=== PATIENT | male | born 1945 | race Caucasian/White ===

== ENCOUNTER 2023-09-10 22:39 | Emergency (ER) | payer MEDICARE, SELFPAY ==
[2023-09-10 22:45] VITALS: BP 175/95; PULSE 94; TEMP 36.9; O2SAT 95; BMI 28.4
--- NOTE | 2023-09-10 23:28 | PC.NURSE ---
This nurse went to irrigate pate catheter, when removing tubing a small clot came out of catheter and urine starting to drain. 500 mls output at this time. Pt has relief at this time.
--- NOTE | 2023-09-10 23:31 | ED_ITS ---
HPI - Male Genitourinary General Chief complaint: Urogenital-Male Stated complaint: Medical Devise Check Time Seen by Provider: 09/10/23 23:22 Source: patient Mode of arrival: walk-in History of Present Illness HPI Narrative: chronic history of urinary retention and has been self cathing for many years. Describes abnormality of the bladder wall and it was removed surgically 09/06/23 at [facility] and a pate and leg bag were placed. Tonight the catheter was not draining and he now presents to the ER. no fever, chills or nausea. He otherwise feels well Related Data Allergies Allergy/AdvReac Type Severity Reaction Status Date / Time No Known Drug Allergies Allergy Verified 09/10/23 22:54 Review of Systems ROS Status of ROS 10 or more systems reviewed and unremark able except as noted in history and below Exam Constitutional Vital Signs, click to edit/add: Last Vital Signs Temp 98.5 F 09/10/23 22:45 Pulse 94 H 09/10/23 22:45 Resp 20 09/10/23 22:45 BP 175/95 H 09/10/23 22:45 Pulse Ox 95 09/10/23 22:45 O2 Del Method Room Air 09/10/23 22:45 Common normals: no apparent distress, average body habitus, oriented x3, no limitations, healthy appearing, alert and well nourished [facility] Common normals: normocephalic and head/scalp atraumatic Eye Common normals: EOMs intact bilaterally and conjunctivae normal Respiratory Common normals: normal respiratory effort, no retractions, no use of accessory muscles and clear to auscultation bilaterally Cardio Common normals: regular rate, regular rhythm, S1 normal heart sound and S2 normal heart sound GI Other: suprapubic mid line vertical incision. looks clean Extremity Common normals: normal to inspection and full ROM Neuro Common normals: oriented x3, CN's II-XII intact bilaterally, moves all extremities and no focal motor deficits Psych Appearance: grossly normal Course Vital Signs Vital signs: Vital Signs Temperature 98.5 F 09/10/23 22:45 Pulse Rate 94 H 09/10/23 22:45 Respiratory Rate 20 09/10/23 22:45 Blood Pressure 175/95 H 09/10/23 22:45 Pulse Oximetry 95 09/10/23 22:45 Oxygen Delivery Method Room Air 09/10/23 22:45 Temperature 98.5 F 09/10/23 22:45 Pulse Rate 94 H 09/10/23 22:45 Respiratory Rate 20 09/10/23 22:45 Blood Pressure 175/95 H 09/10/23 22:45 Pulse Oximetry 95 09/10/23 22:45 Oxygen Delivery Method Room Air 09/10/23 22:45 MDM - Male Genitourinary MDM Narrative Medical decision making narrative: patient presents with urinary retention . Nursing noted clot in the catheter and irrigated it and the urine started flowing. Discharge Plan Discharge Stand Alone Forms: Portal Instructions Chief Complaint: Urogenital-Male Clinical Impression: Pate catheter problem Patient Disposition: Home, Self-Care Print Language: Georgian Instructions: Urinary Retention in Men (ED) Referrals: CASSIE DONALDSON MD [Primary Care Provider] - 1 week
--- NOTE | 2023-09-10 23:38 | PC.NURSE ---
This nurse irrigated pate, no blood clots noted, urine clear and pate is patent.
== END 2023-09-10 23:46 | disposition home or self-care (01) ==
PROVIDERS: Emergency Provider Internal Medicine; PCP Internal Medicine
DX: T83.098A Other mechanical complication of other urinary catheter, initial encounter (principal); R33.9 Retention of urine, unspecified
CPT/HCPCS: 99284

== ENCOUNTER 2023-12-17 16:26 | Outpatient (OUT) | payer MEDICARE, SELFPAY ==
--- NOTE | 2023-12-17 | US_ITS ---
The [address] [address] Patient Name: JOLLY SIERRA MRN: [id number] date: 1945 Sex: M Assigned Patient Location: US Current Patient Location: US Accession/Order Number: [id number] Exam Date: 12/17/2023 16:50 Report Date: 12/18/2023 08:54 At the request of: CHEO DAN Procedure: US venous doppler UE RT EXAM: US venous doppler UE RT HISTORY: Swelling right arm, M79.89, Bladder cancer,C67.8 COMPARISON: None. TECHNIQUE: [place] scale, color Doppler, spectral Doppler waveform analysis was used to evaluate the right upper extremity venous vascular structures. FINDINGS: The internal jugular veins are compressible. The subclavian vein demonstrated normal color flow and waveform analysis. The axillary, brachial, radial, and ulnar veins were compressible. Superficial venous thrombus is seen within the cephalic vein in the upper arm region. This does not extend to the subclavian vein. US/US venous doppler UE RT IMPRESSION: Superficial venous thrombosis involving the upper portion of the cephalic vein. No deep venous thrombosis. Electronically authenticated by: Chidi SHORT Date: 12/18/2023 08:54
== END 2023-12-17 16:27 | disposition home or self-care (01) ==
LOC: US 16:26
PROVIDERS: PCP Internal Medicine; Visit Provider Physician Assistant Medical
DX: C67.8 Malignant neoplasm of overlapping sites of bladder (principal); M79.89 Other specified soft tissue disorders; I82.611 Acute embolism and thrombosis of superficial veins of right upper extremity
CPT/HCPCS: 93971

== ENCOUNTER 2024-06-18 13:40 | Outpatient (OUT) | payer MEDICARE, SELFPAY ==
--- NOTE | 2024-06-18 13:42 | US_ITS ---
[address] [address] Patient Name: JOLLY SIERRA MRN: [id number] date: 1945 Sex: M Assigned Patient Location: US Current Patient Location: Accession/Order Number: [id number] Exam Date: 06/18/2024 13:55 Report Date: 06/19/2024 10:11 At the request of: TOMÁS SUAREZ Procedure: US thyroid EXAMINATION: US thyroid HISTORY: abnormal imaging of thyroid COMPARISON: No relevant comparison available. FINDINGS: RIGHT LOBE: Enlarged slightly heterogeneous. Contains a 2.6 x 1.7 x 1.9 cm TR 4 nodule within inferior pole. Lobe size: 5.7 2.7 x 1.7 cm LEFT LOBE: Enlarged slightly heterogeneous. Contains a 3.4 x 1.9 x 2.8 cm TR 5 nodule within inferior pole. Lobe size: 5.7 x 2.7 x 1.6 cm ISTHMUS: Normal size and echotexture. Thickness: 3 mm US/US thyroid IMPRESSION: 1. Suspicious TR 4 nodule within right lobe and suspicious TR 5 nodule within left lobe. Ultrasound-guided tissue sampling is recommended. TR5 (highly suspicious): If > 0.5 cm, annual ultrasound follow-up for up to 5 years. If > 1.0 cm, fine needle aspiration (FNA). TR4 (moderately suspicious): If > 1.0 cm, follow-up ultrasound in 1, 2, 3, and 5 years. If > 1.5 cm, fine needle aspiration (FNA). Electronically authenticated by: HIREN ADRIAN Date: 06/19/2024 10:11
== END 2024-06-18 13:41 | disposition home or self-care (01) ==
LOC: US 13:40
PROVIDERS: PCP Internal Medicine; Visit Provider Internal Medicine Hematology & Oncology
DX: R93.89 Abnormal findings on diagnostic imaging of other specified body structures (principal); E04.2 Nontoxic multinodular goiter
CPT/HCPCS: 76536

== ENCOUNTER 2025-01-09 10:14 | Outpatient (OUT) | payer MEDICARE, SELFPAY ==
--- OUTSIDE RECORDS SUMMARY | 2025-01-09 10:28 | XMS_ITS | CCD ---
Author Organization [facility] Care Team Providers Care Mortgage Or Loan Underwriter Name Role Phone JOSE J DONALDSON JR Primary Care Physician Unavailable Primary Care Provider Unavaildilma vidal Unavailable Primary Care Provider Unavailabl e Lalito oHbbs, Jose J WHITE Primary Care Provi gerry Antonio GARY Attending Unavailable Antonio GARY Attending Unavailable Antonio GARY Attending Unavailable Antonio GARY Admitting Unavailable Jerman BOOM OPERATOR.RETREAD SUPERVISOR, Jose Martin Unavailable Faisal Dasilva MD Unavailable [phone] Donald Perez RN Unavailable Anette Kebede Unavailable Unavailable Jose J Donaldson MD Primary Care Provider [phone] Rubén Newman DO Attending Provider [phone] NO FAMILY, PHYSICIAN Primary Care Provider Unava ilable JOSE J DONALDSON JR Primary Care Unavail able JASON WILL Referring Unavailable Rubén Newman DO Attending Provider [phone] JASON WILL Attending Unavailable JOSE J DONALDSON JR Primary Care Unavail able JASON WILL Attending Unavailable JOSE J DONALDSON JR Primary Care Unavail able JASON WILL Admitting Unavailable JASON WILL Attending Unavailable JOSE J DONALDSON JR Primary Care Unavail able RUBÉN NEWMAN Attending Unavailable RUBÉN NEWMAN Attending Unavailable RUBÉN NEWMAN Attending Unavailable RUBÉN NEWMAN Attending Unavailable RUBÉN NEWMAN Attending Unavailable Rubén Newman Attending Unavailable NO FAMILY, PHYSICIAN Primary Care Unavailable Rubén Newman Admitting Unavailable NON STAFF Primary Care Unavailable Rubén Newman Admitting Unavailable Rubén Newman Attending Unavailable Rubén Newman Admitting Unavailable Rubén Newman Attending Unavailable PEREZONE , [facility] Unavail able FAISAL DASILVA Referring Unavailabl e VALONE JR, [facility] Unavail able FAISAL DASILVA Referring Unavailabl e FAISAL DASILVA Attending Unavailabl e VALONE JR, [facility] Unavail able VALONE , [facility] Unavail able FAISAL DASILVA Referring Unavailabl FAISAL Rojas Attending Unavailabl FAISAL Rojas Referring Unavailabl e VALONE JR, [facility] Unavail able FAISAL DASILVA Referring Unavailabl e VALONE JR, [facility] Unavail able FAISAL DASILVA Referring Unavailabl e MARLEE DAN Attending Unavailable PEREZONE , [facility] Unavail able FAISAL DASILVA Referring Unavailabl e VALONE JR, [facility] Unavail able FAISAL DASILVA Referring Unavailabl e VALONE JR, [facility] Unavail able VALONE , [facility] Unavail able FAISAL DASILVA Attending UnavailFAISAL [place] Referring Unavailabl e VALONE JR, [facility] Unavail able VALONE , [facility] Unavail able BRIDGET DESAI Referring Unavailable VALONE , [facility] Unavail able JASON WILL Referring Unavailable VALONE , [facility] Unavail able FAISAL DASILVA Referring Unavailabl JOSE MARTIN Fields Attending Un[facility] FAISAL DASILVA Attending UnavailFAISAL [place] Referring Unavailabl e VALONE JR, [facility] Unavail able Medications Current Medications Medication Drug Class(es) Dates Sig (Normalized) Sig (Original) amLODIPine 5 mg oral tablet (1 source) Dihydropyridine Calcium Channel Koko Start: 07-25-2021 amLODIPine 5 mg Tab Refills(s) 0 Start Date: 07/25/21 Status: Ordered docusate sodium 100 mg oral capsule (12 sources) Start: 09-07-2023 End: 09-21-2023 take 1 capsule by mouth twice daily docusate sodium (COLACE) 100 mg capsule Take 1 capsule by mouth two times a day for 14 days. 28 capsule 0 09/07/2023 09/21/2023 Active End: 10-24-2023 docusate sodium (STOOL SOFTE NER ORAL) Take by mouth as needed. 10/24/2023 Discontinued End: 10-24-2023 docusate sodium (STOOL SOFTE NER ORAL) Take by mouth as needed. 0 10/24/2023 Discontinued docusate sodium (STOOL SOFTENER ORAL) Take by mouth as needed. 0 Active enteric contrast (will be provided with radiology test) (2 sources) Start: 03-11-2024 End: 03-12-2024 enteric contrast (will be pr ovided with radiology test) For CT CHESTABD/PEL W IVCON Routine order Administer, As Directed One Time Only, via Oral, Rectal, both Oral and Rectal, Enteric Tube, Stoma or Indwelling Catheter, Enteric Contrast as designated per enteric contrast guidelines 1 Each 03/11/2024 03/12/2024 Active iv contrast (will be provide d with radiology test) (4 sources) Start: 03-11-2024 End: 03-12-2024 iv contrast (will be provide d with radiology test) CT Chest ABD/PEL-Inject, intravenously, once for 1 dose.No IV access, insert saline lock prior to the beginning of sedation, infusion, injection of imaging exam. Discontinue saline lock post exam. If Pt. has a central line or IVAD, may access for administration according to line specific nursing protocol. Once exam is complete flush line and de-access according to line specific nursing protocol in the CT contrast administration guidelines link. 1 Each 03/11/2024 03/12/2024 Active Start: 08-24-2023 End: 08-25-2023 iv contrast (will be provide d with radiology test) CT Urogram WO/W Inject, intravenously, once for 1 dose.No IV access, insert saline lock prior to the beginning of sedation, infusion, injection of imaging exam. Discontinue saline lock post exam. If Pt. has a central line or IVAD, may access for administration according to line specific nursing protocol. Once exam is complete flush line and de-access according to line specific nursing protocol in the CT contrast administration guidelines link. 1 Each 0 08/24/2023 08/25/2023 Active Comment on above: CT Urogram WO/W Inje ct, intravenously, once for 1 dose.No IV access, insert saline lock prior to the beginning of sedation, infusion, injection of imaging exam. Discontinue saline lock post exam. If Pt. has a central line or IVAD, may access for administration according to line specific nursing protocol. Once exam is complete flush line and de-access according to line specific nursing protocol in the CT contrast administration guidelines link. nitrofurantoin, macrocrystals 25 mg / nitrofurantoin, monohydrate 75 mg oral capsule (11 sources) Nitrofuran Antibacterial Start: 2023 End: 2023 nitrofurantoin monohydrate and macrocrystal (MACROBID) 100 mg capsule 12/14/2023 01/18/2024 Discontinued ondansetron 8 mg oral tablet (20 sources) Serotonin-3 Receptor Antagonist Start: 2023 End: 2024 take 1 tablet by mouth every eight hours as needed ondansetron (Zofran) 8 MG tablet Take 8 mg by mouth every 8 (eight) hours if needed 10/22/2023 01/08/2025 Discontinued prochlorperazine 10 mg oral tablet (20 sources) Phenothiazine Start: 2023 End: 2024 take 1 tablet by mouth every six hours as needed prochlorperazine (Compazine) 10 MG tablet Take 10 mg by mouth every 6 (six) hours if needed 10/22/2023 01/08/2025 Discontinued Psyllium (3 sources) Start: 2019 Metamucil Oral, Refills(s) 0 Start Date: 05/23/19 Status: Ordered psyllium seed, with sugar, (METAMUCIL, SUGAR, ORAL) (19 sources) psyllium seed, w ith sugar, (METAMUCIL, SUGAR, ORAL) Take by mouth. Active ramipril 10 mg oral capsule (20 sources) Angiotensin Converting Enzyme Inhibitor Start: 2023 End: 2024 take 1 capsule by mouth in the morning ramipril (Altace) 10 MG capsule Take 10 mg by mouth in the morning. 08/20/2023 01/08/2025 Discontinued Start: 07-25-2021 ramipril 10 mg Cap Refills(s) 0 Start Date: 07/25/21 Status: Ordered Comment on above: Take 10 mg by mouth once daily. sacubitril 24 mg / valsartan 26 mg oral tablet (19 sources) Angiotensin 2 Receptor Koko Start: 07-31-2024 sacubitril-valsartan (Entresto) 24-26 MG tablet Take by mouth 07/31/2024 Active Start: 07-31-2024 take 1 tablet by christen th twice daily sacubitril-valsartan (ENTRESTO) 24-26 mg tablet Take 1 tablet by mouth two times a day. 07/31/2024 Active spironolactone 50 mg oral tablet (20 sources) Aldosterone Antagonist Start: 08-01-2023 End: 04-08-2025 take 1 tablet by mouth once daily spironolactone (Aldactone) 50 MG tablet Indications: Heart failure, unspecified (HCC) Take 1 tablet (50 mg) by mouth Daily 90 tablet 01/08/2025 04/08/2025 Active Comment on above: Take 50 mg by mouth once daily. Vitamin D (3 sources) Start: 07-09-2020 Vitamin D International_Unit, Oral, Daily, Refills(s) 0 Start Date: 07/09/20 Status: Ordered Completed/Discontinued Medications Medication Drug Class(es) Dates Sig (Normalized) Sig (Original) cephalexin 500 mg oral capsule (4 sources) Cephalosporin Antibacterial Start: 09-01-2024 End: 09-11-2024 take 1 capsule by mouth three times daily cephALEXin (KEFLEX) 500 mg capsule Indications: Acute cystitis without hematuria Take 1 capsule by mouth three times a day for 10 days. 30 capsule 09/01/2024 09/11/2024 Start: 01-18-2024 End: 01-28-2024 take 1 capsule by mouth three times daily cephALEXin (KEFLEX) 500 mg capsule Indications: Bacteriuria Take 1 capsule by mouth three times a day for 10 days. 30 capsule 01/18/2024 01/28/2024 Discontinued ciprofloxacin 500 mg oral tablet (6 sources) Quinolone Antimicrobial Start: 09-02-2023 End: 09-13-2023 ciprofloxacin HCl (CIPRO) 500 mg tablet Course 1: TAKE 1 TABLET BY MOUTH TWICE DAILY FOR 3 DAYS. START THE DAY PRIOR TO CATHETER REMOVAL Course 2: TAKE 1 TABLET BY MOUTH TWICE DAILY FOR 3 DAYS. START THE DAY PRIOR TO STENT REMOVAL 12 tablet 0 09/07/2023 09/13/2023 Start: 07-30-2023 take 1 tablet by christen th once daily Cipro 500 mg Tab 500 mg = 1 tab(s), Oral, Daily, Take 1 tablet the day before the procedure and 1 tablet after the procedure, # 1 tab(s), Refills(s) 0, Pharmacy: [facility] [id number], 179, cm, 08/07/22 8:48:00 EDT, Height/Length Dosing, 90, kg, 08/07/22 8:48:00 EDT, Weight Dosing Start Date: 07/30/23 Status: Ordered CISplatin 47.25 mg in NaCl 0.9% 587.25 mL (PLATINOL) (2 sources) Start: 01-15-2024 End: 01-15-2024 47.25 mg (25 mg/m2 1.89 m2 Treatment plan adjusted BSA), INTRAVENOUS, Administer over 1 Hours, ONCE, 1 dose, On Sun01/15/24 at 1030, Approx Total Volume: mL EXP: 01/17/2024 1630 RT Hazardous Chemotherapy Drug: Use appropriate PPE. Antineoplastic Vesicant for concentrations greater than 0.4 mg/mL - Antineoplastic Irritant for concentrations less than 0.4 mg/mL. Protect from Light. Start: 01-08-2024 End: 01-08-2024 47.25 mg (25 mg/m2 1.89 m2 T reatment plan adjusted BSA), INTRAVENOUS, Administer over 1 Hours, ONCE, 1 dose, On Sun01/08/24 at 1000, Approx Total Volume: mL EXP: 01/09/2024 1600 RT Hazardous Chemotherapy Drug: Use appropriate PPE. Antineoplastic Vesicant for concentrations greater than 0.4 mg/mL - Antineoplastic Irritant for concentrations less than 0.4 mg/mL. Protect from Light. CISplatin 50 mg in NaCl 0.9% 590 mL (PLATINOL) (5 sources) Start: 12-17-2023 End: 12-17-2023 CISplatin 50 mg in NaCl 0.9% 590 mL (PLATINOL) Start: 12-03-2023 End: 12-03-2023 CISplatin 50 mg in NaCl 0.9% 590 mL (PLATINOL) Start: 11-26-2023 End: 11-26-2023 CISplatin 50 mg in NaCl 0.9% 590 mL (PLATINOL) Start: 11-12-2023 End: 11-12-2023 CISplatin 50 mg in NaCl 0.9% 590 mL (PLATINOL) Start: 11-05-2023 End: 11-05-2023 CISplatin 50 mg in NaCl 0.9% 590 mL (PLATINOL) dexAMETHasone 10 mg in NaCl 0.9% 50 mL (DECADRON) (8 sources) Start: 01-15-2024 End: 01-15-2024 10 mg, INTRAVENOUS, ONCE, 1 dose, On Sun01/15/24 at 1030, Refrigerate. Start: 01-08-2024 End: 01-08-2024 10 mg, INTRAVENOUS, ONCE, 1 dose, On Sun01/08/24 at 1000, Refrigerate. Start: 12-24-2023 End: 12-24-2023 10 mg, INTRAVENOUS, ONCE, 1 dose, On Sun12/24/23 at 1130, Refrigerate. Start: 12-17-2023 End: 12-17-2023 dexAMETHasone 10 mg in NaCl 0.9% 50 mL (DECADRON) Start: 12-03-2023 End: 12-03-2023 dexAMETHasone 10 mg in NaCl 0.9% 50 mL (DECADRON) Start: 11-26-2023 End: 11-26-2023 dexAMETHasone 10 mg in NaCl 0.9% 50 mL (DECADRON) Start: 11-12-2023 End: 11-12-2023 dexAMETHasone 10 mg in NaCl 0.9% 50 mL (DECADRON) Start: 11-05-2023 End: 11-05-2023 dexAMETHasone 10 mg in NaCl 0.9% 50 mL (DECADRON) doxycycline monohydrate 100 mg oral tablet (12 sources) Tetracycline-class Drug Start: 12-10-2023 End: 01-28-2024 doxycycline monohydrate 100 mg tablet 12/10/2023 01/28/2024 Discontinued ferrous sulfate 325 mg oral tablet (12 sources) End: 01-28-2024 ferrous sulfate (IRON) 325 mg (65 mg iron) tablet Take 325 mg by mouth. 01/28/2024 Discontinued fosaprepitant 150 mg in NaCl 0.9% 250 mL (EMEND) (8 sources) Start: 01-15-2024 End: 01-15-2024 150 mg, INTRAVENOUS, Administer over 30 Minutes, ONCE, 1 dose, On Sun01/15/24 at 1030, Approximate Total Volume = 280 mL Refrigerate Start: 01-08-2024 End: 01-08-2024 150 mg, INTRAVENOUS, Adminis ter over 30 Minutes, ONCE, 1 dose, On Sun01/08/24 at 1000, Approximate Total Volume = 280 mL Refrigerate Start: 12-24-2023 End: 12-24-2023 150 mg, INTRAVENOUS, Adminis ter over 30 Minutes, ONCE, 1 dose, On Sun12/24/23 at 1130, Approximate Total Volume = 280 mL Refrigerate Start: 12-17-2023 End: 12-17-2023 fosaprepitant 150 mg in NaCl 0.9% 250 mL (EMEND) Start: 12-03-2023 End: 12-03-2023 fosaprepitant 150 mg in NaCl 0.9% 250 mL (EMEND) Start: 11-26-2023 End: 11-26-2023 fosaprepitant 150 mg in NaCl 0.9% 250 mL (EMEND) Start: 11-12-2023 End: 11-12-2023 fosaprepitant 150 mg in NaCl 0.9% 250 mL (EMEND) Start: 11-05-2023 End: 11-05-2023 fosaprepitant 150 mg in NaCl 0.9% 250 mL (EMEND) gemcitabine 1,800 mg in NaCl 0.9% 322.34 mL (GEMZAR) (2 sources) Start: 01-15-2024 End: 01-15-2024 1,800 mg (rounded from 1,890 mg = 1,000 mg/m2 1.89 m2 Treatment plan adjusted BSA), INTRAVENOUS, Administer over 30 Minutes, ONCE, 1 dose, On Sun01/15/24 at 1030, EXP: 01/17/2024 1630 RT Hazardous Chemotherapy Drug: Use appropriate PPE. Antineoplastic Irritant. Start: 01-08-2024 End: 01-08-2024 1,800 mg (rounded from 1,890 mg = 1,000 mg/m2 1.89 m2 Treatment plan adjusted BSA), INTRAVENOUS, Administer over 30 Minutes, ONCE, 1 dose, On Sun01/08/24 at 1000, EXP: 01/09/2024 1600 RT Hazardous Chemotherapy Drug: Use appropriate PPE. Antineoplastic Irritant. gemcitabine 2,000 mg in NaCl 0.9% 327.6 mL (GEMZAR) (6 sources) Start: 12-24-2023 End: 12-24-2023 2,000 mg (rounded from 2,050 mg = 1,000 mg/m2 2.05 m2 Treatment Plan BSA from Recorded weight), INTRAVENOUS, Administer over 30 Minutes, ONCE, 1 dose, On Sun12/24/23 at 1130, EXP: 32912/26/23 Hazardous Chemotherapy Drug: Use appropriate PPE. Antineoplastic Irritant. Start: 12-17-2023 End: 12-17-2023 gemcitabine 2,000 mg in NaCl 0.9% 327.6 mL (GEMZAR) Start: 12-03-2023 End: 12-03-2023 gemcitabine 2,000 mg in NaCl 0.9% 327.6 mL (GEMZAR) Start: 11-26-2023 End: 11-26-2023 gemcitabine 2,000 mg in NaCl 0.9% 327.6 mL (GEMZAR) Start: 11-12-2023 End: 11-12-2023 gemcitabine 2,000 mg in NaCl 0.9% 327.6 mL (GEMZAR) Start: 11-05-2023 End: 11-05-2023 gemcitabine 2,000 mg in NaCl 0.9% 327.6 mL (GEMZAR) lidocaine hydrochloride 0.02 mg/mg topical gel (4 sources) Antiarrhythmic, Amide Local Anesthetic Start: 01-04-2024 End: 01-04-2024 lidocaine urojet 2 % 11 mL topical gel (GLYDO) Start: 01-04-2024 End: 01-04-2024 11 mL, URETHRAL, ONCE (UP TO 30 DAYS AMB), 1 dose, On Sun01/04/24 at 0830, FOR EXTERNAL USE ONLY APPLY TO: Urethra Start: 10-05-2023 End: 10-05-2023 lidocaine urojet 2 % 11 mL t opical gel (GLYDO) NaCl 0.9% 1,000 mL (1 source) Start: 11-12-2023 End: 11-12-2023 NaCl 0.9% 1,000 mL 24 hr oxybutynin chloride 10 mg extended release oral tablet (3 sources) Cholinergic Muscarinic Antagonist Start: 09-07-2023 End: 09-27-2023 take 1 tablet by mouth once daily as needed for muscle spasms oxybutynin ER (DITROPAN XL) 10 mg 24 hr tablet Take 1 tablet by mouth once daily as needed for up to 7 days. NEEDED FOR BLADDER SPASM - STOP THE DAY PRIOR TO CATHETER REMOVAL 7 tablet 0 09/07/2023 09/27/2023 Discontinued (Discontinued by Patient) 5 ml palonosetron 0.05 mg/ml injection (8 sources) Serotonin-3 Receptor Antagonist Start: 01-15-2024 End: 01-15-2024 0.25 mg, INTRAVENOUS, ONCE, 1 dose, On Sun01/15/24 at 1030, Flush IV line with NS prior to and following administration. Start: 01-08-2024 End: 01-08-2024 0.25 mg, INTRAVENOUS, ONCE, 1 dose, On Sun01/08/24 at 1000, Flush IV line with NS prior to and following administration. Start: 12-24-2023 End: 12-24-2023 0.25 mg, INTRAVENOUS, ONCE, 1 dose, On Sun12/24/23 at 1130, Flush IV line with NS prior to and following administration. Start: 12-17-2023 End: 12-17-2023 palonosetron 0.25 mg injecti on (ALOXI) Start: 12-03-2023 End: 12-03-2023 palonosetron 0.25 mg injecti on (ALOXI) Start: 11-26-2023 End: 11-26-2023 palonosetron 0.25 mg injecti on (ALOXI) Start: 11-12-2023 End: 11-12-2023 palonosetron 0.25 mg injecti on (ALOXI) Start: 11-05-2023 End: 11-05-2023 palonosetron 0.25 mg injecti on (ALOXI) Psyllium Seed-Sucrose (METAMUCIL, SUGAR,) (12 sources) End: 11-26-2023 Psyllium Seed-Sucrose (METAMUCIL, SUGAR,) Take 1 Tablespoonful by mouth once daily. 0 11/26/2023 Discontinued Psyllium Seed-Underwood crose (METAMUCIL, SUGAR,) Take 1 Tablespoonful by mouth once daily. 0 Active rosuvastatin calcium 5 mg oral tablet (20 sources) HMG-CoA Reductase Inhibitor Start: 07-21-2023 End: 11-26-2023 take 1 tablet by mouth once daily rosuvastatin (CRESTOR) 5 mg tablet Take 5 mg by mouth once daily. 07/21/2023 11/26/2023 Discontinued End: 01-08-2025 take 1 tablet by mouth in the morning rosuvastatin (Crestor) 20 MG tablet Take 20 mg by mouth in the morning. 01/08/2025 Discontinued Comment on above: Take 5 mg by mouth o nce daily. 1000 ml sodium chloride 9 mg/ml injection (16 sources) Start: 01-15-2024 End: 01-15-2024 999 mL/hr, INTRAVENOUS, Administer over 1 Hours, ONCE, 1 dose, On Sun01/15/24 at 1030, Give after chemotherapy. Start: 01-15-2024 End: 01-15-2024 1,000 mL, INTRAVENOUS, at 99 9 mL/hr, Administer over 1 Hours, ONCE, 1 dose, On Sun01/15/24 at 1030, Administer prior to chemotherapy. Start: 01-08-2024 End: 01-08-2024 999 mL/hr, INTRAVENOUS, Admi nister over 1 Hours, ONCE, 1 dose, On Sun01/08/24 at 1000, Give after chemotherapy. Start: 01-08-2024 End: 01-08-2024 1,000 mL, INTRAVENOUS, at 99 9 mL/hr, Administer over 1 Hours, ONCE, 1 dose, On Sun01/08/24 at 1000, Administer prior to chemotherapy. Start: 12-24-2023 End: 12-24-2023 500 mL, INTRAVENOUS, at 999 mL/hr, Administer over 0.5 Hours, ONCE, 1 dose, On Sun12/24/23 at 1130, Administer prior to chemotherapy. Start: 12-17-2023 End: 12-17-2023 NaCl 0.9% iv infusion Start: 12-17-2023 End: 12-17-2023 NaCl 0.9% iv bolus 1,000 mL Start: 12-03-2023 End: 12-03-2023 NaCl 0.9% iv infusion Start: 12-03-2023 End: 12-03-2023 NaCl 0.9% iv bolus 1,000 mL Start: 11-26-2023 End: 11-26-2023 NaCl 0.9% iv infusion Start: 11-26-2023 End: 11-26-2023 NaCl 0.9% iv bolus 1,000 mL Start: 11-12-2023 End: 11-12-2023 NaCl 0.9% iv bolus 1,000 mL Start: 11-05-2023 End: 11-05-2023 NaCl 0.9% iv infusion Start: 11-05-2023 End: 11-05-2023 NaCl 0.9% iv bolus 1,000 mL Start: 08-24-2023 End: 08-24-2023 0.9 % sodium chloride (NACL 0.9%) infusion Administer at rate defined per CT contrast administration specifications. To be provided with radiology test. 150 mL 0 08/24/2023 08/24/2023 Active Comment on above: Administer at rate d efined per CT contrast administration specifications. To be provided with radiology test. sodium zirconium cyclosilicate 13581 mg powder for oral suspension (10 sources) End: 11-26-2023 sodium zirconium cyclosilicate (LOKELMA) 10 gram oral packet Take 10 g by mouth every other day. 0 11/26/2023 Discontinued sodium zirconium cyclosilicate (LOKELMA) 10 gram oral packet Take 10 g by mouth. Twice daily today. Then once daily beginning 11/01/23. 0 Active sulfamethoxazole 800 mg / trimethoprim 160 mg oral tablet (13 sources) Dihydrofolate Reductase Inhibitor Antibacterial, Sulfonamide Antimicrobial Start: 09-01-2024 End: 09-11-2024 take 1 tablet by mouth twice daily sulfamethoxazole-trimethoprim (BACTRIM DS) 800-160 mg per tablet Indications: Acute cystitis without hematuria Take 1 tablet by mouth two times a day for 10 days. 20 tablet 09/01/2024 09/11/2024 Start: 01-04-2024 End: 01-04-2024 sulfamethoxazole-trimethopri m 800-160 mg 1 tablet (BACTRIM DS) Start: 01-04-2024 End: 01-04-2024 take 1 tablet by mouth once, then take 1 tablet by mouth every 30 days 1 tablet, ORAL, ONCE (UP TO 30 DAYS AMB) , 1 dose, On Sun01/04/24 at 0830, Antimicrobial indication: Prophylaxis Start: 10-05-2023 End: 11-04-2023 sulfamethoxazole-trimethopri m 800-160 mg 1 tablet (BACTRIM DS) tamsulosin hydrochloride 0.4 mg oral capsule (20 sources) alpha-Adrenergic Koko Start: 09-07-2023 End: 11-26-2023 take 1 capsule by mouth once daily at bedtime tamsulosin (FLOMAX) 0.4 mg Take 1 capsule by mouth daily at bedtime. 30 capsule 09/07/2023 10/22/2023 Discontinued tamsulosin HCl ( TAMSULOSIN ORAL) Take by mouth. Active Problems Active Problems Problem Classification Problem Date Documented Da te Episodic/Chronic Cancer of bladder (20 sources) Malignant tumor of urinary bladder; Translations: [Malignant neoplasm of bladder, unspecified] Onset: 10-22-2023 Resolved: 07-10-2024 08-24-2023 Chronic Cancer of bladder (2 sources) H/O: malignant neoplasm; Translations: [Personal history of malignant neoplasm of bladder] Onset: 08-28-2024 01-04-2024 Episodic Chronic kidney disease (2 sources) Chronic kidney disease stage 3B ; Translations: [Stage 3b chronic kidney disease (CMS-HCC)] 01-08-2025 Chronic Congestive heart failure; nonhypertensive (2 sources) Heart failure; Translations: [Heart failure, unspecified] 01-08-2025 Chronic Deficiency and other anemia (1 source) Anemia; Translations: [Anemia, unspecified] 12-17-2023 Episodic Disorders of lipid metabolism (20 sources) Hyperlipidemia; Translations: [Hyperlipidemia, unspecified] Onset: 08-28-2023 Resolved: 07-10-2024 08-28-2023 Chronic Essential hypertension (20 sources) Hypertensive disorder; Translations: [Essential (primary) hypertension] Onset: 08-28-2023 Resolved: 07-10-2024 05-22-2019 Chronic Genitourinary symptoms and ill-defined conditions (16 sources) History of urinary tract infection; Translations: [Personal history of urinary (tract) infections] Onset: 08-07-2022 Episodic Hyperplasia of prostate (4 sources) Benign prostatic hypertrophy with outflow obstruction; Translations: [Benign prostatic hyperplasia with lower urinary tract symptoms] 05-22-2019 Chronic Osteoarthritis (14 sources) Bilateral osteoarthritis of knees; Translations: [Bilateral primary osteoarthritis of knee] Onset: 08-04-2024 08-04-2024 Chronic Other and ill-defined heart disease (14 sources) Left ventricular systolic dysfunction; Translations: [Other ill-defined heart diseases] Onset: 08-04-2024 08-04-2024 Chronic Other connective tissue disease (1 source) Swelling of upper limb; Translations: [Other specified soft tissue disorders] 12-17-2023 Episodic Other diseases of bladder and urethra (5 sources) Flaccid neurogenic bladder; Translations: [Flaccid neuropathic bladder, not elsewhere classified] Onset: 08-07-2022 Chronic Other diseases of bladder and urethra (5 sources) Lesion of bladder; Translations: [Bladder disorder, unspecified] Onset: 08-28-2023 08-28-2023 Chronic Other diseases of bladder and urethra (1 source) Neuromuscular dysfunction of bladder, unspecified; Translations: [Neurogenic bladder] Onset: 08-28-2023 Chronic Other endocrine disorders (3 sources) Male hypogonadism 05-22-2019 Chronic Other injuries and conditions due to external causes (3 sources) Urine finding; Translations: [Abnormal urine levels of substances chiefly nonmedicinal as to source] 08-24-2023 Episodic Other non-traumatic joint disorders (1 source) Effusion of joint; Translations: [Effusion, right elbow] 12-17-2023 Episodic Other nutritional; endocrine; and metabolic disorders (3 sources) Body mass index 25-29 - overweight 07-25-2021 Episodic Other screening for suspected conditions (not mental disorders or infectious disease) (2 sources) Imaging of thyroid gland abnormal; Translations: [Abnormal findings on diagnostic imaging of other specified body structures] 10-24-2023 Chronic Residual codes; unclassified (2 sources) Contact with and (suspected) exposure to other hazardous, chiefly nonmedicinal, chemicals; Translations: [Contact with and (suspected) exposure to other potentially hazardous chemicals] 01-08-2025 Episodic Thyroid disorders (20 sources) Thyroid nodule; Translations: [Nontoxic single thyroid nodule] Onset: 07-14-2024 06-19-2024 Chronic Thyroid disorders (2 sources) Thyroid dysfunction; Translations: [Disorder of thyroid, unspecified] 08-05-2024 Episodic Urinary tract infections (1 source) Acute cystitis; Translations: [Acute cystitis without hematuria] 10-05-2023 Episodic Past or Other Problems Problem Classification Problem Date Documented Date Episodic/Chronic Administrative/social admission (17 sources) Patient encounter status; Translations: [Encounter for other administrative examinations] Onset: 07-14-2024 Resolved: 07-14-2024 07-14-2024 Episodic Blindness and vision defects (20 sources) Astigmatism; Translations: [Unspecified astigmatism, unspecified eye] Onset: 07-14-2024 Resolved: 07-14-2024 07-14-2024 Episodic Complications of surgical procedures or medical care (20 sources) Anemia due to antineoplastic chemotherapy; Translations: [Antineoplastic chemotherapy induced anemia] Onset: 01-28-2024 Resolved: 07-10-2024 01-28-2024 Chronic Glaucoma (20 sources) Ocular hypertension; Translations: [Ocular hypertension, unspecified eye] Onset: 07-14-2024 Resolved: 07-14-2024 07-14-2024 Chronic Neoplasms of unspecified nature or uncertain behavior (9 sources) Neoplasm of bladder; Translations: [Neoplasm of unspecified behavior of bladder] Onset: 08-01-2023 Episodic Other diseases of bladder and urethra (20 sources) Diverticulum of bladder; Translations: [Diverticulum of bladder] Onset: 08-28-2023 Resolved: 07-10-2024 08-24-2023 Chronic Other diseases of bladder and urethra (20 sources) Neurogenic bladder; Translations: [Neuromuscular dysfunction of bladder, unspecified] Onset: 08-28-2023 Resolved: 07-10-2024 08-28-2023 Chronic Other eye disorders (17 sources) Excess skin of eyelid; Translations: [Dermatochalasis of unspecified eye, unspecified eyelid] Onset: 07-14-2024 Resolved: 07-14-2024 07-14-2024 Episodic Other screening for suspected conditions (not mental disorders or infectious disease) (7 sources) Coag./bleeding tests abnormal; Translations: [Abnormal coagulation profile] Onset: 08-28-2024 08-24-2023 Episodic Residual codes; unclassified (17 sources) Contact with and (suspected) exposure to other hazardous substances; Translations: [Contact with and (suspected) exposure to other potentially hazardous substances] Onset: 07-14-2024 Resolved: 07-14-2024 07-14-2024 Episodic Results Test Name Value Interpretation Reference Range Facility [facility] 01-01-2025 [facility] Tele[facility] (LABSAN) JOLLY SIERRA ([id number]) 1945 M Date Time Provider Department 01/01/25 JOSE MARTIN HILLMAN During your visit today, we recorded the following information about you: Mukesh Donohue 01/01/2025 9:35 AM Signed Patient coming in for lab only 01/08/25 with no orders. Please review and place needed labs. Thank you, Lindsey Donohue MLT Allergies As of Date: 01/01/2025 (No Known Allergies) Date Reviewed: 12/15/2024 Reviewed by: Jose Martin Hillman APRN.RETREAD SUPERVISOR - Fully Assessed Reason for Visit: Lab Orders [1688] Primary Visit Diagnosis:Malignant neoplasm of prostate (HCC) [C61] Order(s):COMPLETE BLOOD COUNT AND DIFFERENTIAL [SQCBCDIF] Order #: [id number] FUTURE COMPREHENSIVE METABOLIC PANEL [SQCMP] Order #: [id number] FUTURE Prescriptions as of 01/01/2025 - rosuvastatin (CRESTOR) 20 mg tablet Take 20 mg by mouth once daily. 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 He was instructed to call his physician regarding his elevated kidney functions. Pt states he spoke with his general practitioners office and they told him to increase his oral fluids so he's been working on this over the weekend. He wanted our office to be aware. David Capellan, Jose Martin Spence APRN.RETREAD SUPERVISOR 12/15/2024 1:12 PM Signed Spoke with patient. All in agreement with plan. ThanksJose Martin APRN.RETREAD SUPERVISOR Allergies As of Date: 12/15/2024 (No Known Allergies) Date Reviewed: 12/15/2024 Reviewed by: Jose Martin Hillman APRN.RETREAD SUPERVISOR - Fully Assessed Reason for Visit: Care Coordination [1671] Cmt: Clinical update Prescriptions as of 12/15/2024 - rosuvastatin (CRESTOR) 20 mg tablet Take 20 mg by mouth once daily. 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 Encounter Status:Closed by JOSE MARTIN HILLMAN on 12/15/24 Normal [facility] CBC W Auto Differential pane l (Bld)on 12-11-2024 Basophils (Bld) [#/Vol] 0.03 10*3/uL Normal <0.11 [facility] Comment on above: Order Comment: Speci men Type: BLOOD SPECIMEN Ordering Facility: [facility] Address: [address] [place] [address] Performed By: #### 2 4323-8 #### [facility] CLIA [id number] [address] [place] [address] Basophils/100 WBC (Bld) 0.5 % Normal [facility] Comment on above: Order Comment: Speci men Type: BLOOD SPECIMEN Ordering Facility: [facility] Address: [address] [place] [address] Performed By: #### 2 4323-8 #### [facility] CLIA [id number] [address] [place] [address] Differential cell count method Nom (Bld) Auto Normal [facility] Comment on above: Order Comment: Speci men Type: BLOOD SPECIMEN Ordering Facility: [facility] Address: [address] [place] [address] Performed By: #### 2 4323-8 #### [facility] CLIA [id number] [address] [place] [address] Eosinophils (Bld) [#/Vol] 0.09 10*3/uL Normal <0.46 [facility] Comment on above: Order Comment: Speci men Type: BLOOD SPECIMEN Ordering Facility: [facility] Address: [address] [place] [address] Performed By: #### 2 4323-8 #### [facility] CLIA [id number] [address] [place] [address] Eosinophils/100 WBC (Bld) 1.5 % Normal [facility] Comment on above: Order Comment: Speci men Type: BLOOD SPECIMEN Ordering Facility: [facility] Address: [address] [place] [address] Performed By: #### 2 4323-8 #### [facility] CLIA [id number] [address] [place] [address] Erythrocyte distribution width (RBC) [Ratio] 13.2 % Normal 11.5-15.0 [facility] Comment on above: Order Comment: Speci men Type: BLOOD SPECIMEN Ordering Facility: [facility] Address: [address] [place] [address] Performed By: #### 2 4323-8 #### [facility] CLIA [id number] [address] [place] [address] Hematocrit (Bld) [Volume fraction] 36.3 % Low 39.0-51.0 [facility] Comment on above: Order Comment: Speci men Type: BLOOD SPECIMEN Ordering Facility: [facility] Address: [address] [place] [address] Performed By: #### 2 4323-8 #### [facility] CLIA [id number] [address] [place] [address] Hemoglobin (Bld) [Mass/Vol] 11.9 g/dL Low 13.0-17.0 [facility] Comment on above: Order Comment: Speci men Type: BLOOD SPECIMEN Ordering Facility: [facility] Address: [address] [place] [address] Performed By: #### 2 4323-8 #### [facility] CLIA [id number] [address] [place] [address] Immature granulocytes (Bld) [#/Vol] 10*3/uL Normal <0.10 [facility] Comment on above: Order Comment: Speci men Type: BLOOD SPECIMEN Ordering Facility: [facility] Address: [address] [place] [address] Performed By: #### 2 4323-8 #### [facility] CLIA [id number] [address] [place] [address] Immature granulocytes/100 WBC (Bld) 0.3 % Normal [facility] Comment on above: Order Comment: Speci men Type: BLOOD SPECIMEN Ordering Facility: [facility] Address: [address] [place] [address] Performed By: #### 2 4323-8 #### [facility] CLIA [id number] [address] [place] [address]6490 Lymphocytes (Bld) [#/Vol] 1.41 10*3/uL Normal 1.00-4.00 [facility] Comment on above: Order Comment: Speci men Type: BLOOD SPECIMEN Ordering Facility: [facility] Address: [address] [place] [address] Performed By: #### 2 4323-8 #### [facility] CLIA [id number] [address] [place] [address] Lymphocytes/100 WBC (Bld) 22.9 % Normal [facility] Comment on above: Order Comment: Speci men Type: BLOOD SPECIMEN Ordering Facility: [facility] Address: [address] [place] [address] Performed By: #### 2 4323-8 #### [facility] CLIA [id number] [address] [place] [address]1985 MCH (RBC) [Entitic mass] 31.5 pg Normal 26.0-34.0 [facility] Comment on above: Order Comment: Speci men Type: BLOOD SPECIMEN Ordering Facility: [facility] Address: [address] [place] [address] Performed By: #### 2 4323-8 #### [facility] CLIA [id number] [address] [place] [address] 96217 MCHC (RBC) [Mass/Vol] 32.8 g/dL Normal 30.5-36.0 [facility] Comment on above: Order Comment: Speci men Type: BLOOD SPECIMEN Ordering Facility: [facility] Address: [address] [place] [address] Performed By: #### 2 4323-8 #### [facility] CLIA [id number] [address] [place] [address]504 MCV (RBC) [Entitic vol] 96.0 fL Normal 80.0-100.0 [facility] Comment on above: Order Comment: Speci men Type: BLOOD SPECIMEN Ordering Facility: [facility] Address: [address] [place] [address] Performed By: #### 2 4323-8 #### [facility] CLIA [id number] [address] [place] [address] 22689 Monocytes (Bld) [#/Vol] 0.68 10*3/uL Normal <0.87 [facility] Comment on above: Order Comment: Speci men Type: BLOOD SPECIMEN Ordering Facility: [facility] Address: [address] [place] [address] Performed By: #### 2 432-8 #### [facility] CLIA [id number] [address] [place] [address] 00898 Monocytes/100 WBC (Bld) 11.0 % Normal [facility] Comment on above: Order Comment: Speci men Type: BLOOD SPECIMEN Ordering Facility[facility] Address: [address] [place] [address] Performed By: #### 2 4323-8 #### [facility] CLIA [id number] [address] [place] [address] 18393 Neutrophils (Bld) [#/Vol] 3.93 10*3/uL Normal 1.45-7.50 [facility] Comment on above: Order Comment: Speci men Type: BLOOD SPECIMEN Ordering Facility: [facility] Address: [address] [place] [address] Performed By: #### 2 432-8 #### [facility] CLIA [id number] [address] [place] [address] 98968 Neutrophils/100 WBC (Bld) 63.8 % Normal [facility] Comment on above: Order Comment: Speci men Type: BLOOD SPECIMEN Ordering Facility[facility] Address: [address] [place] [address] Performed By: #### 2 4323-8 #### [facility] CLIA [id number] [address] [place] [address] 19980 Nucleated RBC (Bld) [#/Vol] 10*3/uL Normal <0.01 [facility] Comment on above: Order Comment: Speci men Type: BLOOD SPECIMEN Ordering Facility[facility] Address: [address] [place] [address] Performed By: #### 2 4323-8 #### [facility] CLIA [id number] [address] [place] [address] Nucleated RBC/100 WBC (Bld) [Ratio] 0.0 /100 WBC Normal [facility] Comment on above: Order Comment: Speci men Type: BLOOD SPECIMEN Ordering Facility: [facility] Address: [address] [place] [address] Performed By: #### 2 4323-8 #### [facility] CLIA [id number] [address] [place] [address] 95778 Platelet mean volume (Bld) [Entitic vol] 9.7 fL Normal 9.0-12.7 [facility] Comment on above: Order Comment: Speci men Type: BLOOD SPECIMEN Ordering Facility: [facility] Address: [address] [place] [address] Performed By: #### 2 4323-8 #### [facility] CLIA [id number] [address] [place] [address] 01793 Platelets (Bld) [#/Vol] 154 10*3/uL Normal 150-400 [facility] Comment on above: Order Comment: Speci men Type: BLOOD SPECIMEN Ordering Facility[facility] Address: [address] [place] [address] Performed By: #### 2 4323-8 #### [facility] CLIA [id number] [address] [place] [address] 13872 RBC (Bld) [#/Vol] 3.78 10*6/uL Low 4.20-6.00 [facility] Comment on above: Order Comment: Speci men Type: BLOOD SPECIMEN Ordering Facility[facility] Address: [address] [place] [address] Performed By: #### 2 4323-8 #### [facility] CLIA [id number] [address] [place] [address] WBC (Bld) [#/Vol] 6.16 10*3/uL Normal 3.70-11.00 [facility] Comment on above: Order Comment: Speci men Type: BLOOD SPECIMEN Ordering Facility[facility] Address: [facility] [place] [address] Performed By: #### 2 4323-8 #### [facility] CLIA [id number] [address] [place] [address] CNOVSPon 12-11-2024 CNOVSP Visit (SP) Office (HEMASA) JAVI SIERRAJOSE Degroot ([id number]) 1945 M Date Time Provider Department 12/11/24 2:30 PM JOSE MARTIN HILLMAN During your visit today, we recorded the following information about you: Temperature Pulse Respiration Blood pressure 97.2 degrees 64/minute 16/minute 161/67 Weight Height 90.5 kg 1.778 m Jose Martin Hillman APRN.CNP 12/11/2024 6:24 PM Signed PATIENT NAME: Jolly Sierra DATE: 12/11/2024 PRIMARY CARE PHYSICIAN: Jose J Donaldson Jr, DO OTHER PHYSICIANS: Dr. Jason Will, Dr. Antonio Gary Portions of this encounter note have been copied from the note from 09/11/2024 and has been updated where appropriate, and reflect my current medical decision making from today. CC: This is a 79 year old male with a history of localized bladder cancer, seen for scheduled follow-up. INTERM HISTORY: History of Diagnosis: Patient has a history of bladder cancer, diagnosed in April 2023. He underwent surgery followed by adjuvant chemotherapy with cisplatin and gemcitabine. Treatment was complicated by worsening kidney function, leading to the discontinuation of cisplatin. Recent History: Patient reports no current issues with kidney pain, hematuria, or difficulty urinating. He continues to use a straight catheter 3-4 times daily to manage chronic urinary retention and reports no problems with [facility] urogram showed asymmetric thickening of the right lateral and posterior ye of the urinary bladder, likely post-surgical changes, with no evidence of metastatic disease in the abdomen or pelvis. A cystoscopy is scheduled for February. Patient also has a history of thyroid nodules, with recent ultrasound 3 weeks ago showing no significant changes. A repeat ultrasound is recommended in 6 months. Recent labs show mild anemia with hemoglobin slightly below normal, but patient denies symptoms such as fatigue, dizziness, or shortness of breath. Potassium level is slightly elevated at 5.3 mmol/L. No bleeding or abnormal bruising. Worsening kidney function noted on today's labs. The only newer medication the patient is taking is Crestor. MEDICATIONS: Current Outpatient Medications Medication Sig tamsulosin HCl (TAMSULOSIN ORAL) Take by mouth. sacubitril-valsartan (ENTRESTO) 24-26 mg tablet Take 1 tablet by mouth two times a day. spironolactone (ALDACTONE) 50 mg tablet Take 50 mg by mouth once daily. psyllium seed, with sugar, (METAMUCIL, SUGAR, ORAL) Take by mouth. (Patient not taking: Reported on 09/11/2024) ondansetron (ZOFRAN) 8 mg tablet Take 1 tablet by mouth every 8 hours as needed for nausea/vomiting. (Patient not taking: Reported on 09/11/2024) prochlorperazine (COMPAZINE) 10 mg tablet Take 1 tablet by mouth every 6 hours as needed. (Patient not taking: Reported on 09/11/2024) ramipril (ALTACE) 10 mg capsule Take 10 mg by mouth once daily. (Patient not taking: Reported on 09/11/2024) No current facility-administered medications for this visit. ALLERGIES: ALLERGIES No Known Allergies PAST MEDICAL HISTORY: PAST MEDICAL HISTORY Diagnosis Date HLD (hyperlipidemia) HTN (hypertension) Neurogenic bladder PAST SURGICAL HISTORY: PAST SURGICAL HISTORY Procedure Laterality Date CYSTOSCOPY PAST SURGICAL HISTORY OF 2006 bladder surgery PAST SURGICAL HISTORY OF Robotic Laproscopic Cystoplasty bladder augmentation with stent FAMILY HISTORY: FAMILY HISTORY Problem Relation Age of Onset Heart disease Father SOCIAL HISTORY: Social History Tobacco Use Smoking status: Never Passive exposure: Never Smokeless tobacco: Never Vaping Use Vaping status: Never Used Substance Use Topics Alcohol use: Not Currently Drug use: Never PHYSICAL EXAM: BP 161/67 Pulse 64 Temp 36.2 ?C (97.2 ?F) (Temporal) Resp 16 Ht 177.8 cm (5' 10 ) Wt 90.5 kg (199 lb 8.3 oz) SpO2 98% BMI 28.63 kg/m? ECOG 0 General: Alert and oriented, no distress, pleasant and cooperative. Heart: Regular, normal S1 and S2, no murmurs, rubs, or gallops. Lungs: Clear to auscultation bilaterally. Abdomen: Benign. Extremities: Feet/ankles without edema. No redness or warmth PATHOLOGY: 09/06/2023 Robotic bladder diverticulectomy and right pelvic lymph node dissection. A. Urinary bladder, neck of diverticulum, excision: - Benign bladder mucosa and muscularis propria. B. Lymph nodes, right pelvic, regional resection: - Two lymph nodes, negative for malignancy (0/2). C. 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 - Margins are negative for tumor. LABS: Hemoglobin (g/dL) Date Value 12/11/2024 11.9 Hematocrit (%) Date Value 12/11/2024 36.3 WBC (k/uL) Date Value (more content not included)... Normal [facility] Comprehensive metabolic 2000 panelon 12-11-2024 Albumin [Mass/Vol] 4.0 g/dL Normal 3.9-4.9 [facility] Comment on above: Order Comment: Lucia red Type: BLOOD SPECIMEN Order[facility] Address: [address] [place] [address] Performed By: #### 2 4323-8 #### [facility] CLIA [id number] [address] [place] [address] 51853 ALP [Catalytic activity/Vol] 80 U/L Normal 38-113 [facility] Comment on above: Order Comment: Lucia red Type: BLOOD SPECIMEN Order[facility] Facility[facility] Address: [address] [place] [address] Performed By: #### 2 4323-8 #### [facility] CLIA [id number] [address] [place] [address] ALT [Catalytic activity/Vol] 12 U/L Normal 10-54 [facility] Comment on above: Order Comment: Speci men Type: BLOOD SPECIMEN Order[facility] Address: [address] [place] [address] Performed By: #### 2 4323-8 #### [facility] CLIA [id number] [address] [place] [address] 14466 Anion gap [Moles/Vol] 7 mmol/L Low 8-15 [facility] Comment on above: Order Comment: Speci men Type: BLOOD SPECIMEN Order[facility] Address: [address] [place] [address] Performed By: #### 2 4323-8 #### [facility] CLIA [id number] [address] [place] [address] 57028 AST [Catalytic activity/Vol] 14 U/L Normal 14-40 [facility] Comment on above: Order Comment: Speci men Type: BLOOD SPECIMEN Order[facility] Address: [address] [place] [address] Performed By: #### 2 4323-8 #### [facility] CLIA [id number] [address] [place] [address] 43671 Bilirubin [Mass/Vol] 0.3 mg/dL Normal 0.2-1.3 [facility] Comment on above: Order Comment: Speci men Type: BLOOD SPECIMEN Order[facility] Address: [address] [place] [address] Performed By: #### 2 4323-8 #### [facility] CLIA [id number] [address] [place] [address] 68515 Calcium [Mass/Vol] 9.4 mg/dL Normal 8.5-10.2 [facility] Comment on above: Order Comment: Speci men Type: BLOOD SPECIMEN Order[facility] Address: [address] [place] [address] Performed By: #### 2 4323-8 #### [facility] CLIA [id number] [address] [place] [address] Chloride [Moles/Vol] 106 mmol/L Normal 98-107 [facility] Comment on above: Order Comment: Speci men Type: BLOOD SPECIMEN Order[facility] Address: [address] [place] [id number] Performed By: #### 2 4323-8 #### [facility] CLIA [id number] [address] [place] [address] 49782 CO2 [Moles/Vol] 27 mmol/L Normal 22-30 [facility] Comment on above: Order Comment: Speci men Type: BLOOD SPECIMEN Order[facility] Facility[facility] Address: [address] [place] [address] Performed By: #### 2 4323-8 #### [facility] CLIA [id number] [address] [place] [address] 20347 Creatinine [Mass/Vol] 1.70 mg/dL High 0.73-1.22 [facility] Comment on above: Order Comment: Speci men Type: BLOOD SPECIMEN Order[facility] Facility[facility] Address: [address] [place] [address] Performed By: #### 2 4323-8 #### [facility] CLIA [id number] [address] [place] [address] 13104 eGFRcr SerPlBld CKD-EPI 2020 41 mL/min/1.73m??? Low >=60 [facility] Comment on above: Order Comment: Speci men Type: BLOOD SPECIMEN Ordering Facility[facility] Address: [address] [place], [place] [address] Result Comment: Alexia mated Glomerular Filtration Rate (eGFR) is calculated using the 2020 CKD-EPI creatinine equation. This equation utilizes serum creatinine, sex, and age as parameters. The creatinine assay has traceable calibration to isotope dilution-mass spectrometry. Refer to KDIGO guidelines for clinical interpretation. In patients with unstable renal function, e.g. those with acute kidney injury, the eGFR may not accurately reflect actual GFR. Performed By: #### 2 4323-8 #### [facility] CLIA [id number] [address] [place] [address] Glucose [Mass/Vol] 110 mg/dL High 74-99 [facility] Comment on above: Order Comment: Lucia red Type: BLOOD SPECIMEN Order[facility] Facility[facility] Address: [address] [place] [address] Result Comment: The [place] [employer] (ADA) provides guidance for cutoff values for fasting glucose and random glucose. The ADA defines fasting as no caloric intake for at least 8 hours. Fasting plasma glucose results between 100 to 125 mg/dL indicate increased risk for diabetes (prediabetes). Fasting plasma glucose results greater than or equal to 126 mg/dL meet the criteria for diagnosis of diabetes. In the absence of unequivocal hyperglycemia, results should be confirmed by repeat testing. In a patient with classic symptoms of hyperglycemia or hyperglycemic crisis, random plasma glucose results greater than or equal to 200 mg/dL meet the criteria for diagnosis of diabetes. Reference: Standards of Medical Care in Diabetes 2016, [employer] Diabetes Association. Diabetes Care. 2016.39(Suppl 1). Performed By: #### 2 4323-8 #### [facility] CLIA [id number] [address] [place] [address] Potassium [Moles/Vol] 4.8 mmol/L Normal 3.7-5.1 [facility] Comment on above: Order Comment: Lucia red Type: BLOOD SPECIMEN [facility] Address: [address] [place] [address] Performed By: #### 2 4323-8 #### [facility] CLIA [id number] [address] [place] [address] Protein [Mass/Vol] 7.0 g/dL Normal 6.3-8.0 [facility] Comment on above: Order Comment: Lucia red Type: BLOOD SPECIMEN [facility] Address: [address] [place] [address] Performed By: #### 2 4323-8 #### [facility] CLIA [id number] [address] [place] [address] Sodium [Moles/Vol] 140 mmol/L Normal 136-144 [facility] Comment on above: Order Comment: Speci men Type: BLOOD SPECIMEN [facility] Address: [address] [place], [place] [address] Performed By: #### 2 4323-8 #### [facility] CLIA [id number] [address] [place] [address] Urea nitrogen [Mass/Vol] 35 mg/dL High 9-24 [facility] Comment on above: Order Comment: Speci men Type: BLOOD SPECIMEN [facility] Address: [address] [place], [place] [address] Performed By: #### 2 4323-8 #### [facility] CLIA [id number] [address] [place] [address] Albumin [Mass/Vol] 4.0 g/dL Normal 3.9-4.9 [facility] Comment on above: Order Comment: Speci men Type: BLOOD SPECIMENOrdering Facility: [facility] Address: [address] [place] [address] Performed By: #### 2 4323-8 ####[facility] [id number] [place] [address] ALP [Catalytic activity/Vol] 79 U/L Normal 38-113 [facility] Comment on above: Order Comment: Speci men Type: BLOOD SPECIMENOrdering Facility: [facility] Address: [address] [place] [address] Performed By: #### 2 4323-8 ####[facility] [id number] [place] [address] ALT [Catalytic activity/Vol] 11 U/L Normal 10-54 [facility] Comment on above: Order Comment: Speci men Type: BLOOD SPECIMENOrdering Facility: [facility] Address: [address] [place] [id number] Performed By: #### 2 4323-8 ####[facility] [id number] [place] [address] Anion gap [Moles/Vol] 8 mmol/L Normal 8-15 [facility] Comment on above: Order Comment: Speci men Type: BLOOD SPECIMENOrdering Facility: [facility] Address: [address] [place] [address] Performed By: #### 2 4323-8 ####[facility] [id number] [place] [address] AST [Catalytic activity/Vol] 15 U/L Normal 14-40 [facility] Comment on above: Order Comment: Speci men Type: BLOOD SPECIMENOrdering Facility: [facility] Address: [address] [place] [address] Performed By: #### 2 4323-8 ####[facility] [id number] [place] [address] Bilirubin [Mass/Vol] 0.3 mg/dL Normal 0.2-1.3 [facility] Comment on above: Order Comment: Speci men Type: BLOOD SPECIMENOrdering Facility: [facility] Address: [address] [place] [address] Performed By: #### 2 4323-8 ####[facility] [id number] [place] [address] Calcium [Mass/Vol] 9.4 mg/dL Normal 8.5-10.2 [facility] Comment on above: Order Comment: Speci men Type: BLOOD SPECIMENOrdering Facility: [facility] Address: [address] [place] [address] Performed By: #### 2 4323-8 ####[facility] [id number] [place] [address] Chloride [Moles/Vol] 104 mmol/L Normal 98-107 [facility] Comment on above: Order Comment: Speci men Type: BLOOD SPECIMENOrdering Facility: [facility] Address: [address] [place], [place] [address] Performed By: #### 2 4323-8 ####[facility] [id number] [place] [address] CO2 [Moles/Vol] 28 mmol/L Normal 22-30 [facility] Comment on above: Order Comment: Speci men Type: BLOOD SPECIMENOrdering Facility: [facility] Address: [address] [place] [address] Performed By: #### 2 4323-8 ####[facility] [id number] [place] [address] Creatinine [Mass/Vol] 1.78 mg/dL High 0.73-1.22 [facility] Comment on above: Order Comment: Speci men Type: BLOOD SPECIMENOrdering Facility: [facility] Address: [address] [place] [address] Performed By: #### 2 4323-8 ####[facility] [id number] [place] [address] eGFRcr SerPlBld CKD-EPI 2020 38 mL/min/1.73m??? Low >=60 [facility] Comment on above: Order Comment: Speci men Type: BLOOD SPECIMENOrdering Facility: [facility] Address: [address] [place] [address] Result Comment: Alexia mated Glomerular Filtration Rate (eGFR) is calculated using the 2020 CKD-EPI creatinine equation. This equation utilizes serum creatinine, sex, and age as parameters. The creatinine assay has traceable calibration to isotope dilution-mass spectrometry. Refer to KDIGO guidelines for clinical interpretation. In patients with unstable renal function, e.g. those with acute kidney injury, the eGFR may not accurately reflect actual GFR. Performed By: #### 2 4323-8 ####[facility] [id number] [place] [address] Glucose [Mass/Vol] 119 mg/dL High 74-99 [facility] Comment on above: Order Comment: Speci men Type: BLOOD SPECIMENOrdering Facility: [facility] Address: [address] [place] [address] Result Comment: The [place] Diabetes Association (ADA) provides guidance for cutoff values for fasting glucose and random glucose. The ADA defines fasting as no caloric intake for at least 8 hours. Fasting plasma glucose results between 100 to 125 mg/dL indicate increased risk for diabetes (prediabetes). Fasting plasma glucose results greater than or equal to 126 mg/dL meet the criteria for diagnosis of diabetes. In the absence of unequivocal hyperglycemia, results should be confirmed by repeat testing. In a patient with classic symptoms of hyperglycemia or hyperglycemic crisis, random plasma glucose results greater than or equal to 200 mg/dL meet the criteria for diagnosis of diabetes. Reference: Standards of Medical Care in Diabetes 2016, [employer] Diabetes Association. Diabetes Care. 2016.39(Suppl 1). Performed By: #### 2 4323-8 ####[facility] [id number] [place] [address] Potassium [Moles/Vol] 5.3 mmol/L High 3.7-5.1 [facility] Comment on above: Order Comment: Speci men Type: BLOOD SPECIMENOrdering Facility: [facility] Address: [address] [place] [address] Performed By: #### 2 4323-8 ####[facility] [id number] [place] [address] Protein [Mass/Vol] 7.0 g/dL Normal 6.3-8.0 [facility] Comment on above: Order Comment: Speci men Type: BLOOD SPECIMENOrdering Facility: [facility] Address: [address] [place] [address] Performed By: #### 2 4323-8 ####[facility] [id number] [place] [address] Sodium [Moles/Vol] 140 mmol/L Normal 136-144 [facility] Comment on above: Order Comment: Speci men Type: BLOOD SPECIMENOrdering Facility: [facility] Address: [place] [address] Performed By: #### 2 4323-8 ####[facility] [id number] [place] [address] Urea nitrogen [Mass/Vol] 34 mg/dL High 9-24 [facility] Comment on above: Order Comment: Speci men Type: BLOOD SPECIMENOrdering Facility: [facility] Address: [place] [address] Performed By: #### 2 4323-8 ####[facility] [id number] [place] [address] CNPSadie 12-01-2024 CNPN Telephone (HEMASA) JOLLY SIERRA ([id number]) 1945 M Date Time Provider Department 12/01/24 JOSE MARTIN HILLMAN During your visit today, we recorded the following information about you: Cori Oneill MA 12/01/2024 11:42 AM Signed Patient has an appt on 12/11/24. Would you like labs, if so place orders. Cori Oneill MA Allergies As of Date: 12/01/2024 (No Known Allergies) Date Reviewed: 10/28/2024 Reviewed by: John Wylie CT - Fully Assessed Reason for Visit: Lab Orders [1687] Primary Visit Diagnosis:Malignant neoplasm of overlapping sites of bladder (HCC) [C67.8] Order(s):COMPLETE BLOOD COUNT AND DIFFERENTIAL [SQCBCDIF] Order #: [id number] FUTURE COMPREHENSIVE METABOLIC PANEL [SQCMP] Order #: [id number] FUTURE Prescriptions as of 12/01/2024 - tamsulosin HCl (TAMSULOSIN ORAL) Take by mouth. - sacubitril-valsartan (ENTRESTO) 24-26 mg tablet Take 1 tablet by mouth two times a day. - spironolactone (ALDACTONE) 50 mg tablet Take 50 mg by mouth once daily. - psyllium seed, with sugar, (METAMUCIL, SUGAR, ORAL) Take by mouth. - ondansetron (ZOFRAN) 8 mg tablet Take 1 tablet by mouth every 8 hours as needed for nausea/vomiting. - prochlorperazine (COMPAZINE) 10 mg tablet Take 1 tablet by mouth every 6 hours as needed. - ramipril (ALTACE) 10 mg capsule Take 10 mg by mouth once daily. 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 Will wanted patient to schedule cystoscopy in February. Scheduled patient with Dr. Obrien on 02/26/25 @ 11:00 am at the [facility] office. Asked patient if he was going to follow up with a urologist in [facility] and to return call to office Allergies As of Date: 11/25/2024 (No Known Allergies) Date Reviewed: 10/28/2024 Reviewed by: John Wylie CT - Fully Assessed Reason for Visit: Appointment Confirmation [3505] Prescriptions as of 11/25/2024 - tamsulosin HCl (TAMSULOSIN ORAL) Take by mouth. - sacubitril-valsartan (ENTRESTO) 24-26 mg tablet Take 1 tablet by mouth two times a day. - spironolactone (ALDACTONE) 50 mg tablet Take 50 mg by mouth once daily. - psyllium seed, with sugar, (METAMUCIL, SUGAR, ORAL) Take by mouth. - ondansetron (ZOFRAN) 8 mg tablet Take 1 tablet by mouth every 8 hours as needed for nausea/vomiting. - prochlorperazine (COMPAZINE) 10 mg tablet Take 1 tablet by mouth every 6 hours as needed. - ramipril (ALTACE) 10 mg capsule Take 10 mg by mouth once daily. 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 Encounter Status:Closed by DILCIA CAMARGO on 11/25/24 Normal [facility] Alec 11-17-2024 L -- ---- Specimen: [id number] Received: 11/18/24 Status: KAY Poe Num: [id number] Spec Type: Cytology Subm Dr: Rubén Newman DO Tissues: A FNA SLIDES NOPATH (RT THYROID NODULE) B FNA SLIDES NOPATH (LT THYROID NODULE) Procedures: Cyto Int and Re/2, PAPSTN/22 ---- Age/ Patient Sex Location Account Attending Physician ---- Jolly Sierra 79/M [place] [id number] Rubén Newman DO ---- SPEC NUM: [id number] RECD: 11/18/24 STATUS: KAY DEEPIKA NUM: [id number] TAV[place]: 11/17/[address] [facility] [address]: Rubén Newman DO ENTERED: 11/18/24 BJORN TREJO: SPEC TYPE: Cytology DEPT: [facility] ENTERED BY: [id number] RECV BY: [id number] ORDERED: Cyto Int and Re/2, PAPSTN/22 ORDERED: Cyto Int and Re/2, PAPSTN/22 Pathological Diagnosis A. Right thyroid nodule, fine-needle aspirate (smears and ThinPrep): ? Nondiagnostic/unsatisf actory, [place] category I ? Blood only. B. Left thyroid nodule, fine-needle aspirate (smears and ThinPrep): ? Benign, [place] category II ? The specimen contains a few groups of benign-appearing follicular cells with focal microfollicle formation, few fragments of colloid, and a few hemosiderin laden macrophages Clinical Information Bilateral Thyroid Nodules Gross Description A. (RIGHT) Received fixed in Cytolyt is 30 ml pale pink clear fixed fluid for cytology said to have been obtained as Right Thyroid Nodule. ThinPrep preparations are prepared for microscopic examination. Also received are 10 spray fixed smeared slides for pap and a Thyroseq vial stored at -20 for microscopic examination. (/nj) B. (LEFT) Received fixed in Cytolyt is 30 ml pale pink clear fixed fluid for cytology said to have been obtained as Left Thyroid Nodule. ThinPrep preparations are prepared for ---- Specimen: [id number] Received: 11/18/24 Status: KAY Poe Num: [id number] Spec Type: Cytology Subm Dr: Rubén Newman,DO Tissues: A FNA SLIDES NOPATH (RT THYROID NODULE) B FNA SLIDES NOPATH (LT THYROID NODULE) Procedures: Cyto Int and Re/2, PAPSTN22 ---- Patient: Jolly Sierra [id number] (Continued) ---- Specimen: [id number] Received: 11/18/24 (Continued) Gross Description (Continued) Signed (signature on file) Narayan Munoz MD 11/19/24 1458 ---- Specimen: [id number] Received: 11/18/24 Status: KAY Poe Num: [id number] Spec Type: Cytology Subm Dr: Rubén Newman DO Tissues: A FNA SLIDES MIKIATH (RT THYROID NODULE) B FNA SLIDES NOPATH (LT THYROID NODULE) Procedures: Cyto Int and Re/2, PAPSTN/22 ---- Patient: Jolly Sierra [id number] (Continued) ---- Specimen: [id number] Received: 11/18/24 (Continued) Gross Description (Continued) microscopic examination. Also received are 10 spray fixed smeared slides for pap and a Thyroseq vial stored at -20 for microscopic examination. (/nj) CPT Codes 48632 x 2, 87201 x 2 ---- ---- Specimen: [id number] Received: 11/18/24 Status: KAY Poe Num: [id number] Spec Type: Cytology Subm Dr: Rubén Newman DO Tissues: A FNA SLIDES NOPATH (RT THYROID NODULE) B FNA SLIDES NOPATH (LT THYROID NODULE) Procedures: Cyto Int and Re/2, PAPSTN/22 ---- Patient: Jolly Sierra [id number] (Continued) ---- Signed (signature on file) Narayan Munoz MD 11/19/24 1458 Normal [facility] CT UROGRAM WO/W IVCONon 06-2 CT UROGRAM WO/W IVCON * * *Final Report* * * DATE OF EXAM: Oct 28 2024 10:51AM [facility] 0560 - CT UROGRAM WO/W IVCON / PROCEDURE REASON: 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 TECHNIQUE: CT urogram protocol including unenhanced, renal parenchymal phase and excretory phase renal imaging was obtained following IV contrast. Normal saline was also administered IV. No oral contrast was given. 3D image post-processing was performed and archived at the request of the referring physician, on the CT scanner workstation without concurrent physician supervision. MQ: CTU_2 Contrast: IV: 100 ml of Omnipaque 350 IV Saline: 150 ml of 0.9% NACL Solution Oral Contrast: None CT Radiation dose: Integrated dose-length product (DLP) for this visit = 927 mGy*cm. CT Dose Reduction Employed: Automated exposure control(AEC) and iterative recon COMPARISON: CTs dated 09/03/2023 and 06/04/2024. RESULT: Kidneys and urinary tract: Right: There are no renal calculi. Stable right renal cysts. Patchy heterogeneous areas of non masslike hypoenhancement (for example /, 601/78) which may represent pyelonephritis. Delayed images show mild nonspecific thickening of the calyces (for example /, 59, 60). The opacified calices, renal pelvis and ureter are otherwise normal without dilation, filling defect, or stricture. Left: There are no renal calculi or masses. Punctate hypodensity at the midpole (/) is too small to characterize. The opacified calices, renal pelvis and ureter are normal without dilation, filling defect, or stricture. Bladder: Asymmetric thickening of the right lateral and posterior ye of the urinary bladder again noted, also involving the right UVJ, without obstruction (4/147). While these most likely represent postsurgical changes, residual/recurrent disease is not excluded. No other focal lesion or wall thickening identified. No vesical calculi. Abdomen and Pelvis: Liver: Stable punctate hypodensity in segment 2 (3/23). No interval focal hepatic abnormalities. Biliary: Unremarkable gallbladder. Spleen: No mass. No splenomegaly. Pancreas: No mass or duct dilation. Moderate lipomatosis. Adrenals: Unchanged adenoma in the lateral limb of the left adrenal. Persistent diffuse thickening of the bilateral adrenals. GI tract: No dilation or wall thickening. Lymph nodes: No abdominal or pelvic lymphadenopathy. Mesentery/Peritoneum: No ascites or mass. Retroperitoneum: No mass. Vasculature: Moderate aortoiliac atherosclerotic changes. Pelvis: Unchanged appearances of the prostate and seminal vesicles. Bones and Soft Tissues: Multilevel vertebral degenerative changes. No acute skeletal findings. Uncomplicated, fat-containing right inguinal hernia shows stable appearances. Lower thorax: Stable left pleural thickening and calcification and atelectasis. Localizer images: No additional findings. IMPRESSION: 1. Asymmetric thickening of the right lateral and posterior ye of the urinary bladder again noted, as described. While these most likely represent postsurgical changes, residual/recurrent disease is not excluded. Correlation with cystoscopy recommended. 2. Heterogeneous parenchymal enhancement of the right kidney with mild thickening of the right renal calyces may represent changes of pyelonephritis. Please correlate with clinical history and lab findings. 3. No evidence of metastatic disease in the abdomen or pelvis. 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 [employer]: [facility] Transcribe Date/Time: Nov 03 2024 9:59A Dictated by : TRACEY PATHAK MD This examination was interpreted and the report reviewed and electronically signed by: TRACEY PATHAK MD on Nov 03 2024 10:48AM EST [id number] Normal [facility] CBC W Auto Differential pane l (Bld)on 09-11-2024 Basophils (Bld) [#/Vol] [facility] Basophils/100 WBC (Bld) 0.3 % [facility] Differential cell count method Nom (Bld) Auto [facility] Eosinophils (Bld) [#/Vol] 0.06 10*3/uL [facility] Eosinophils/100 WBC (Bld) 1 % [facility] Erythrocyte distribution width (RBC) [Ratio] 13.1 % 11.5 - 15.0 % [facility] Hematocrit (Bld) [Volume fraction] 37.8 % Low 39.0 - 51.0 % [facility] Hemoglobin (Bld) [Mass/Vol] 12.3 g/dL Low 13.0 - 17.0 g/dL [facility] Immature granulocytes (Bld) [#/Vol] [facility] Immature granulocytes/100 WBC (Bld) 0.2 % [facility] Interpretation and review of laboratory results Abnormal [facility] Lymphocytes (Bld) [#/Vol] 1.61 10*3/uL [facility] Lymphocytes/100 WBC (Bld) 27.3 % [facility] MCH (RBC) [Entitic mass] 31.8 pg 26.0 - 34.0 pg [facility] MCHC (RBC) [Mass/Vol] 32.5 g/dL 30.5 - 36.0 g/dL [facility] MCV (RBC) [Entitic vol] 97.7 fL 80.0 - 100.0 fL [facility] Monocytes (Bld) [#/Vol] 0.53 10*3/uL [facility] Monocytes/100 WBC (Bld) 9 % [facility] Neutrophils (Bld) [#/Vol] 3.67 10*3/uL [facility] Neutrophils/100 WBC (Bld) 62.2 % [facility] Nucleated RBC (Bld) [#/Vol] [facility] Nucleated RBC/100 WBC (Bld) [Ratio] 0 % /100 WBC [facility] Platelet mean volume (Bld) [Entitic vol] 10.1 fL 9.0 - 12.7 fL [facility] Platelets (Bld) [#/Vol] 155 10*3/uL [facility] RBC (Bld) [#/Vol] 3.87 10*6/uL Low 4.20 - 6.0 0 m/uL [facility] WBC (Bld) [#/Vol] 5.9 10*3/uL [facility] Basophils (Bld) [#/Vol] 10*3/uL Normal <0.11 [facility] Comment on above: Order Comment: Speci men Type: BLOOD SPECIMEN [facility] Address: [address] [place] [address] Performed By: #### 5 7021-8 #### [facility] CLIA [id number] [address] [place] [address] Basophils/100 WBC (Bld) 0.3 % Normal [facility] Comment on above: Order Comment: Speci men Type: BLOOD SPECIMEN [facility] Address: [address] [place] [address] Performed By: #### 5 7021-8 #### [facility] CLIA [id number] [address] [place] [address] Differential cell count method Nom (Bld) Auto Normal [facility] Comment on above: Order Comment: Speci men Type: BLOOD SPECIMEN [facility] Address: [address] [place] [address] Performed By: #### 5 7021-8 #### [facility] CLIA [id number] [address] [place] [address] Eosinophils (Bld) [#/Vol] 0.06 10*3/uL Normal <0.46 [facility] Comment on above: Order Comment: Speci men Type: BLOOD SPECIMEN [facility] Address: [address] [place] [address] Performed By: #### 5 7021-8 #### [facility] CLIA [id number] [address] [place] [address] Eosinophils/100 WBC (Bld) 1.0 % Normal [facility] Comment on above: Order Comment: Speci men Type: BLOOD SPECIMEN [facility] Address: [address] [place] [address] Performed By: #### 5 7021-8 #### [facility] CLIA [id number] [address] [place] [address] Erythrocyte distribution width (RBC) [Ratio] 13.1 % Normal 11.5-15.0 [facility] Comment on above: Order Comment: Speci men Type: BLOOD SPECIMEN [facility] Address: [address] [place] [address] Performed By: #### 5 7021-8 #### [facility] CLIA [id number] [address] [place] [address] Hematocrit (Bld) [Volume fraction] 37.8 % Low 39.0-51.0 [facility] Comment on above: Order Comment: Speci men Type: BLOOD SPECIMEN [facility] Address: [address] [place] [address] Performed By: #### 5 7021-8 #### [facility] CLIA [id number] [address] [place] [address] Hemoglobin (Bld) [Mass/Vol] 12.3 g/dL Low 13.0-17.0 [facility] Comment on above: Order Comment: Speci men Type: BLOOD SPECIMEN [facility] Address: [address] [place] [address] Performed By: #### 5 7021-8 #### [facility] CLIA [id number] [address] [place] [address] Immature granulocytes (Bld) [#/Vol] 10*3/uL Normal <0.10 [facility] Comment on above: Order Comment: Speci men Type: BLOOD SPECIMEN Ordering Facility: [facility] Address: [address] [place] [address] Performed By: #### 5 7021-8 #### [facility] CLIA [id number] [address] [place] [address] 58815 Immature granulocytes/100 WBC (Bld) 0.2 % Normal [facility] Comment on above: Order Comment: Speci men Type: BLOOD SPECIMEN Ordering Facility: [facility] Address: [address] [place] [address] Performed By: #### 5 7021-8 #### [facility] CLIA [id number] [address] [place] [address] 12865 Lymphocytes (Bld) [#/Vol] 1.61 10*3/uL Normal 1.00-4.00 [facility] Comment on above: Order Comment: Speci men Type: BLOOD SPECIMEN Ordering Facility: [facility] Address: [address] [place] [address]039 Performed By: #### 5 7021-8 #### [facility] CLIA [id number] [address] [place] [address] 73407 Lymphocytes/100 WBC (Bld) 27.3 % Normal [facility] Comment on above: Order Comment: Speci men Type: BLOOD SPECIMEN Ordering Facility: [facility] Address: [address] [place] [address] 99168 Performed By: #### 5 7021-8 #### [facility] CLIA [id number] [address] [place] [address] 61302 MCH (RBC) [Entitic mass] 31.8 pg Normal 26.0-34.0 [facility] Comment on above: Order Comment: Speci men Type: BLOOD SPECIMEN Ordering Facility: [facility] Address: [address] [place] [address] 34606 Performed By: #### 5 7021-8 #### [facility] CLIA [id number] [address] [place] [address] 26600 MCHC (RBC) [Mass/Vol] 32.5 g/dL Normal 30.5-36.0 [facility] Comment on above: Order Comment: Speci men Type: BLOOD SPECIMEN Ordering Facility: [facility] Address: [address] [place] [address] Performed By: #### 5 7021-8 #### [facility] CLIA [id number] [address] [place] [address] 61697 MCV (RBC) [Entitic vol] 97.7 fL Normal 80.0-100.0 [facility] Comment on above: Order Comment: Speci men Type: BLOOD SPECIMEN Ordering Facility[facility] Address: [address] [place] [address] Performed By: #### 5 7021-8 #### [facility] CLIA [id number] [address] [place] [address] 02129 Monocytes (Bld) [#/Vol] 0.53 10*3/uL Normal <0.87 [facility] Comment on above: Order Comment: Speci men Type: BLOOD SPECIMEN Ordering Facility[facility] Address: [address] [place] [address] Performed By: #### 5 7021-8 #### [facility] CLIA [id number] [address] [place] [address] 27184 Monocytes/100 WBC (Bld) 9.0 % Normal [facility] Comment on above: Order Comment: Speci men Type: BLOOD SPECIMEN Ordering Facility[facility] Address: [address] [place] [address] Performed By: #### 5 7021-8 #### [facility] CLIA [id number] [address] [place] [address] 06228 Neutrophils (Bld) [#/Vol] 3.67 10*3/uL Normal 1.45-7.50 [facility] Comment on above: Order Comment: Speci men Type: BLOOD SPECIMEN Ordering Facility[facility] Address: [address] [place] [address] Performed By: #### 5 7021-8 #### [facility] CLIA [id number] [address] [place] [address] 26741 Neutrophils/100 WBC (Bld) 62.2 % Normal [facility] Comment on above: Order Comment: Speci men Type: BLOOD SPECIMEN Ordering Facility[facility] Address: [address] [place] [address] Performed By: #### 5 7021-8 #### [facility] CLIA [id number] [address] [place] [address] 71247 Nucleated RBC (Bld) [#/Vol] 10*3/uL Normal <0.01 [facility] Comment on above: Order Comment: Speci men Type: BLOOD SPECIMEN Ordering Facility: [facility] Address: [address] [place] [address] Performed By: #### 5 7021-8 #### [facility] CLIA [id number] [address] [place] [address] 20127 Nucleated RBC/100 WBC (Bld) [Ratio] 0.0 /100 WBC Normal [facility] Comment on above: Order Comment: Speci men Type: BLOOD SPECIMEN Ordering Facility: [facility] Address: [address] [place] [address] Performed By: #### 5 7021-8 #### [facility] CLIA [id number] [address] [place] [address] 88235 Platelet mean volume (Bld) [Entitic vol] 10.1 fL Normal 9.0-12.7 [facility] Comment on above: Order Comment: Speci men Type: BLOOD SPECIMEN Ordering Facility: [facility] Address: [address] [place] [address] Performed By: #### 5 7021-8 #### [facility] CLIA [id number] [address] [place] [address] 20653 Platelets (Bld) [#/Vol] 155 10*3/uL Normal 150-400 [facility] Comment on above: Order Comment: Speci men Type: BLOOD SPECIMEN Ordering Facility[facility] Address: [address] [place] [address] Performed By: #### 5 7021-8 #### [facility] CLIA [id number] [address] [place] [address] 27031 RBC (Bld) [#/Vol] 3.87 10*6/uL Low 4.20-6.00 [facility] Comment on above: Order Comment: Speci men Type: BLOOD SPECIMEN Ordering Facility[facility] Address: [address] [place] [address] Performed By: #### 5 7021-8 #### [facility] CLIA [id number] [address] [place] [address] 64301 WBC (Bld) [#/Vol] 5.90 10*3/uL Normal 3.70-11.00 [facility] Comment on above: Order Comment: Speci men Type: BLOOD SPECIMEN Ordering Facility: [facility] Address: [address] [place] [address] Performed By: #### 5 7021-8 #### [facility] CLIA [id number] [address] [place] [address] 97267 CNOVSPon 09-11-2024 CNOVSP Visit (SP) Office ([facility]) JAVI SIERRAARD Mikayla ([id number]) 1945 M Date Time Provider Department 09/11/24 3:00 PM FAISAL DASILVA During your visit today, we recorded the following information about you: Temperature Pulse Respiration Blood pressure 97.4 degrees 60/minute 16/minute 173/70 Weight Height 90.3 kg 1.778 m Faisal Dasilva MD 09/12/2024 5:50 AM Signed PATIENT NAME: Jolly Sierra DATE: 09/11/2024 PRIMARY CARE PHYSICIAN: Jose J Donaldson Jr, DO OTHER PHYSICIANS: Dr. Jason Will, Dr. Antonio Gary Portions of this encounter note have been copied from the note from 06/12/2024 and has been updated where appropriate, and reflect my current medical decision making from today. CC: This is a 79 year old male with a history of localized bladder cancer, seen for scheduled follow-up. INTERM HISTORY: Since the patient's last visit here he underwent repeat cystoscopy 08/28/2024 which was negative. Clinically feels about the same. As result of his neurogenic bladder he continues to self cath 4 times daily. He was seen by ENT for evaluation of his thyroid nodule. Apparently FNA was nondiagnostic, and current plans are to repeat in the near future. He has noticed no symptoms involving his thyroid. Apparently he is on new medications per PCP for his hypertension and and heart disease. MEDICATIONS: Current Outpatient Medications Medication Sig tamsulosin HCl (TAMSULOSIN ORAL) Take by mouth. sacubitril-valsartan (ENTRESTO) 24-26 mg tablet Take 1 tablet by mouth two times a day. spironolactone (ALDACTONE) 50 mg tablet Take 50 mg by mouth once daily. sulfamethoxazole-trime thoprim (BACTRIM DS) 800-160 mg per tablet Take 1 tablet by mouth two times a day for 10 days. (Patient not taking: Reported on 09/11/2024) cephALEXin (KEFLEX) 500 mg capsule Take 1 capsule by mouth three times a day for 10 days. (Patient not taking: Reported on 09/11/2024) psyllium seed, with sugar, (METAMUCIL, SUGAR, ORAL) Take by mouth. (Patient not taking: Reported on 09/11/2024) ondansetron (ZOFRAN) 8 mg tablet Take 1 tablet by mouth every 8 hours as needed for nausea/vomiting. (Patient not taking: Reported on 09/11/2024) prochlorperazine (COMPAZINE) 10 mg tablet Take 1 tablet by mouth every 6 hours as needed. (Patient not taking: Reported on 09/11/2024) ramipril (ALTACE) 10 mg capsule Take 10 mg by mouth once daily. (Patient not taking: Reported on 09/11/2024) No current facility-administered medications for this visit. ALLERGIES: ALLERGIES No Known Allergies PAST MEDICAL HISTORY: PAST MEDICAL HISTORY Diagnosis Date HLD (hyperlipidemia) HTN (hypertension) Neurogenic bladder PAST SURGICAL HISTORY: PAST SURGICAL HISTORY Procedure Laterality Date CYSTOSCOPY PAST SURGICAL HISTORY OF 2006 bladder surgery PAST SURGICAL HISTORY OF Robotic Laproscopic Cystoplasty bladder augmentation with stent FAMILY HISTORY: FAMILY HISTORY Problem Relation Age of Onset Heart disease Father SOCIAL HISTORY: Social History Tobacco Use Smoking status: Never Passive exposure: Never Smokeless tobacco: Never Vaping Use Vaping status: Never Used Substance Use Topics Alcohol use: Not Currently Drug use: Never COMPLETE REVIEW OF SYSTEMS: CONSTITUTION: Negative for pain, fatigue, weight loss, or appetite loss. EENT: Negative for mouth soreness, antibiotics use, epistaxis, visual problems, neck or facial swelling, fever/chills, bleeding gums, or hearing loss. CV: Negative for calf swelling, palpitations, or chest pain. RESPIRATORY: Negative for cough, SOB, hemoptysis, or wheezing. GI: Negative for vomiting, heartburn, vomiting blood, dysphasia, diarrhea, blood in stool, constipation, early satiety, PICA, vegetarian, poor nutrition, abdominal fullness, or abdominal pain. NEUROLOGICAL: Negative for numbness/tingling, dizziness, gait disturbance, headache, speech disturbance, tremor, hemiparesis/sensory loss, or change in mental status. MUSCULOSKELETAL: Negative for joint pain, joint swelling, or proximal muscle weakness. SKIN: Negative for hair loss, bruising, nail changes, rash, itching, pallor, or jaundice. ENDO/URO: Negative for hot flashes, cold or heat intolerance, urinary frequency, urinary hesitancy, menorrhagia, or hematuria. PSYCH: Negative for anxiety, depression, or other. PHYSICAL EXAM: BP 173/70 Pulse 60 Temp 36.3 ?C (97.4 ?F) (Temporal) Resp 16 Ht 177.8 cm (5' 10 ) Wt 90.3 kg (199 lb 1.2 oz) SpO2 99% BMI 28.56 kg/m? General: Alert and oriented, no distress, pleasant and cooperative. Heart: Regular, normal S1 and S2, no murmurs, rubs, or gallops Lungs: Clear to auscultation bilaterally Abdomen: Benign Extremities: Feet/ankles without edema, right medial antecub with small area of swelling, no redness or warmth PATHOLOGY: 09/06/2023 Robotic bladder (more content not included)... Normal [facility] Comprehensive metabolic 2000 panelOrdered By: Mukesh Donohue on 09-11-2024 Albumin [Mass/Vol] 4.1 g/dL 3.9 - 4.9 g/dL [facility] ALP [Catalytic activity/Vol] 85 U/L 38 - 113 U/L [facility] ALT [Catalytic activity/Vol] 18 U/L 10 - 54 U/L [facility] Anion gap [Moles/Vol] 9 mmol/L 8 - 15 mmol/L [facility] AST [Catalytic activity/Vol] 20 U/L 14 - 40 U/L [facility] Bilirubin [Mass/Vol] 0.2 mg/dL 0.2 - 1 .3 mg/dL [facility] Calcium [Mass/Vol] 9.7 mg/dL 8.5 - 10. 2 mg/dL [facility] Chloride [Moles/Vol] 103 mmol/L 98 - 10 7 mmol/L [facility] CO2 [Moles/Vol] 26 mmol/L 22 - 30 mmol/L [facility] Creatinine [Mass/Vol] 1.29 mg/dL High 0.73 - 1.22 mg/dL [facility] GFR/1.73 sq M.predicted among non-blacks MDRD (S/P/Bld) [Vol rate/Area] 56 mL/min/{1.73_m2} Low - PINF [facility] Comment on above: Estimated Glomerular Filtration Rate (eGFR) is calculated using the 2020 CKD-EPI creatinine equation. This equation utilizes serum creatinine, sex, and age as parameters. The creatinine assay has traceable calibration to isotope dilution-mass spectrometry. Refer to KDIGO guidelines for clinical interpretation. In patients with unstable renal function, e.g. those with acute kidney injury, the eGFR may not accurately reflect actual GFR. Glucose [Mass/Vol] 125 mg/dL High 74 - 99 mg/dL [facility] Comment on above: The [place] Diabete s Association (ADA) provides guidance for cutoff values for fasting glucose and random glucose. The ADA defines fasting as no caloric intake for at least 8 hours. Fasting plasma glucose results between 100 to 125 mg/dL indicate increased risk for diabetes (prediabetes). Fasting plasma glucose results greater than or equal to 126 mg/dL meet the criteria for diagnosis of diabetes. In the absence of unequivocal hyperglycemia, results should be confirmed by repeat testing. In a patient with classic symptoms of hyperglycemia or hyperglycemic crisis, random plasma glucose results greater than or equal to 200 mg/dL meet the criteria for diagnosis of diabetes. Reference: Standards of Medical Care in Diabetes 2016, [place] Diabetes Association. Diabetes Care. 2016.39(Suppl 1). Interpretation and review of laboratory results Abnormal [facility] Potassium [Moles/Vol] 4.6 mmol/L 3.7 - 5.1 mmol/L [facility] Protein [Mass/Vol] 7 g/dL 6.3 - 8.0 g/dL [facility] Sodium [Moles/Vol] 138 mmol/L 136 - 144 mmol/L [facility] Urea nitrogen [Mass/Vol] 29 mg/dL High 9 - 24 mg/dL [facility] metabolic 2000 panelon 09-11-2024 Albumin [Mass/Vol] 4.1 g/dL Normal 3.9-4.9 [facility] Comment on above: Order Comment: Speci men Type: BLOOD SPECIMEN [facility] Address: [address] [place] [address] Performed By: #### 2 4323-8 #### [facility] CLIA [id number] [address] [place] [address] 68721 ALP [Catalytic activity/Vol] 85 U/L Normal 38-113 [facility] Comment on above: Order Comment: Speci men Type: BLOOD SPECIMEN Order[facility] Address: [address] [place] [address] Performed By: #### 2 4323-8 #### [facility] CLIA [id number] [address] [place] [address] 03026 ALT [Catalytic activity/Vol] 18 U/L Normal 10-54 [facility] Comment on above: Order Comment: Speci men Type: BLOOD SPECIMEN [facility] Address: [address] [place] [address] Performed By: #### 2 4323-8 #### [facility] CLIA [id number] [address] [place] [address] 84712 Anion gap [Moles/Vol] 9 mmol/L Normal 8-15 [facility] Comment on above: Order Comment: Speci men Type: BLOOD SPECIMEN [facility] Address: [address] [place] [address] Performed By: #### 2 4323-8 #### [facility] CLIA [id number] [address] [place] [address] 73018 AST [Catalytic activity/Vol] 20 U/L Normal 14-40 [facility] Comment on above: Order Comment: Speci men Type: BLOOD SPECIMEN [facility] Address: [address] [place] [address] 87258 Performed By: #### 2 4323-8 #### [facility] CLIA [id number] [address] [place] [address] Bilirubin [Mass/Vol] 0.2 mg/dL Normal 0.2-1.3 [facility] Comment on above: Order Comment: Speci men Type: BLOOD SPECIMEN [facility] Address: [address] [place] [address]2002 Performed By: #### 2 4323-8 #### [facility] CLIA [id number] [address] [place] [address] Calcium [Mass/Vol] 9.7 mg/dL Normal 8.5-10.2 [facility] Comment on above: Order Comment: Speci men Type: BLOOD SPECIMEN [facility] Address: [address] [place] [address] 32524 Performed By: #### 2 4323-8 #### [facility] CLIA [id number] [address] [place] [address] Chloride [Moles/Vol] 103 mmol/L Normal 98-107 [facility] Comment on above: Order Comment: Speci men Type: BLOOD SPECIMEN [facility] Address: [address] [place] [address] 46953 Performed By: #### 2 4323-8 #### [facility] CLIA [id number] [address] [place] [address] CO2 [Moles/Vol] 26 mmol/L Normal 22-30 [facility] Comment on above: Order Comment: Speci men Type: BLOOD SPECIMEN [facility] Address: [address] [place] [address] Performed By: #### 2 4323-8 #### [facility] CLIA [id number] [address] [place] [address] 97056 Creatinine [Mass/Vol] 1.29 mg/dL High 0.73-1.22 [facility] Comment on above: Order Comment: Speci men Type: BLOOD SPECIMEN Order[facility] Address: [address] [place] [address] Performed By: #### 2 4323-8 #### [facility] CLIA [id number] [address] [place] [address] 08298 Creatinine and Glomerular filtration rate.predicted panel (S/P/Bld) 56 mL/min/1.73m??? Low >=60 [facility] Comment on above: Order Comment: Lucia red Type: BLOOD SPECIMEN [facility] Address: [address] [place] [address] Result Comment: Alexia mated Glomerular Filtration Rate (eGFR) is calculated using the 2020 CKD-EPI creatinine equation. This equation utilizes serum creatinine, sex, and age as parameters. The creatinine assay has traceable calibration to isotope dilution-mass spectrometry. Refer to KDIGO guidelines for clinical interpretation. In patients with unstable renal function, e.g. those with acute kidney injury, the eGFR may not accurately reflect actual GFR. Performed By: #### 2 4323-8 #### [facility] CLIA [id number] [address] [place] [address] 25636 Glucose [Mass/Vol] 125 mg/dL High 74-99 [facility] Comment on above: Order Comment: Lucia red Type: BLOOD SPECIMEN [facility] Address: [address] [place] [address] Result Comment: The [place] Diabetes Association (ADA) provides guidance for cutoff values for fasting glucose and random glucose. The ADA defines fasting as no caloric intake for at least 8 hours. Fasting plasma glucose results between 100 to 125 mg/dL indicate increased risk for diabetes (prediabetes). Fasting plasma glucose results greater than or equal to 126 mg/dL meet the criteria for diagnosis of diabetes. In the absence of unequivocal hyperglycemia, results should be confirmed by repeat testing. In a patient with classic symptoms of hyperglycemia or hyperglycemic crisis, random plasma glucose results greater than or equal to 200 mg/dL meet the criteria for diagnosis of diabetes. Reference: Standards of Medical Care in Diabetes 2016, [place] Diabetes Association. Diabetes Care. 2016.39(Suppl 1). Performed By: #### 2 4323-8 #### [facility] CLIA [id number] [address] [place] [address] Potassium [Moles/Vol] 4.6 mmol/L Normal 3.7-5.1 [facility] Comment on above: Order Comment: Speci men Type: BLOOD SPECIMEN [facility] Address: [address] [place] [address] Performed By: #### 2 4323-8 #### [facility] CLIA [id number] [address] [place] [address] 87803 Protein [Mass/Vol] 7.0 g/dL Normal 6.3-8.0 [facility] Comment on above: Order Comment: Speci men Type: BLOOD SPECIMEN [facility] Address: [address] [place] [address] Performed By: #### 2 4323-8 #### [facility] CLIA [id number] [address] [place] [address] 69093 Sodium [Moles/Vol] 138 mmol/L Normal 136-144 [facility] Comment on above: Order Comment: Speci men Type: BLOOD SPECIMEN [facility] Address: [address] [place] [address] Performed By: #### 2 4323-8 #### [facility] CLIA [id number] [address] [place] [address] 37958 Urea nitrogen [Mass/Vol] 29 mg/dL High 9-24 [facility] Comment on above: Order Comment: Speci men Type: BLOOD SPECIMEN [facility] Address: [address] [place] [address] Performed By: #### 2 4323-8 #### [facility] CLIA [id number] [address] [place] [address] 14479 Gregoria 09-02-2024 AZAM Telephone ([facility]) JOLLY SIERRA ([id number]) 1945 M Date Time Provider Department 09/02/24 AM[place]IL[place] During your visit today, we recorded the following information about you: Amarilis Oh RN 09/02/2024 9:43 AM Signed Patient is aware to start keflex for UTI per order of Dr Will. Allergies As of Date: 09/02/2024 (No Known Allergies) Date Reviewed: 06/12/2024 Reviewed by: Chris August, - Fully Assessed Reason for Visit: Antibiotic [Other] Prescriptions as of 09/02/2024 - sulfamethoxazole-trime thoprim (BACTRIM DS) 800-160 mg per tablet Take 1 tablet by mouth two times a day for 10 days. - cephALEXin (KEFLEX) 500 mg capsule Take 1 capsule by mouth three times a day for 10 days. - sacubitril-valsartan (ENTRESTO) 24-26 mg tablet Take 1 tablet by mouth two times a day. - spironolactone (ALDACTONE) 50 mg tablet Take 50 mg by mouth once daily. - psyllium seed, with sugar, (METAMUCIL, SUGAR, ORAL) Take by mouth. - ondansetron (ZOFRAN) 8 mg tablet Take 1 tablet by mouth every 8 hours as needed for nausea/vomiting. - prochlorperazine (COMPAZINE) 10 mg tablet Take 1 tablet by mouth every 6 hours as needed. - ramipril (ALTACE) 10 mg capsule Take 10 mg by mouth once daily. 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 Ceftriaxone S <=1 F Susceptible <=1 , Intermediate >1 , Resistant >=4 Cefepime S <=1 F Susceptible <=2 , Susceptible-Dose Dependent >2 , Resistant >=16 Ertapenem S <=0.5 F Susceptible <=0.5 , Intermediate >.5 , Resistant >1 Meropenem S <=0.25 F Susceptible <=1 , Intermediate >1 , Resistant >2 Ampicillin/Sulbact S 4 F Susceptible <=8 , Intermediate >8 , Resistant >16 Piperacillin/Tazobac S <=4 F Susceptible <16 , Susceptible-Dose Dependent >=16 , Resistant >=32 Gentamicin S <=1 F Susceptible <=2 , Intermediate >2 , Resistant >=8 Tobramycin S <=1 F Susceptible <4 , Intermediate >=4 , Resistant >=8 Trimeth sulfameth S <=20 F Susceptible <=40 , Resistant >40 Ciprofloxacin S <=0.25 F Susceptible <0.5 , Intermediate >=.5 , Resistant >=1 Nitrofurantoin S <=16 F Susceptible <=32 , Intermediate >32 , Resistant >64 Abnormal [facility] Comment on above: Performed By: #### 6 30-4 ####[facility] [id number] [address] [place] [id number] [place] CNOVon 08-28-2024 CNOV Office Visit ([facility]MO[facility] ) JOLLY SIERRA ([id number]) 1945 M Date Time Provider Department 08/28/24 2:00 PM JASON WILL During your visit today, we recorded the following information about you: Jesus Alberto Baird MA 08/28/2024 2:02 PM Signed UNIVERSAL PROTOCOL / SAFETY CHECKLIST Procedure to be Performed: cystoscopy Sign In: A Moment of CARE was completed. Appropriate PPE (Personal Protective Equipment) worn by all providers involved with the procedure. Special equipment utilized AMbu Cystoscope. Patient/Surrogate Stated/Verified: Patient name, Date of , Relevant allergies, and The intended procedure Time Out: Relevant labs, photos, and/or imaging studies have been reviewed. Intended patient and procedure match the source document(s) (e.g. consent, HANDP, associated studies [imaging, pathology]) match the intended patient and procedure. Consent obtained and matches the intended procedure. Yes. Correct side/site is not applicable. Medications required for this procedure are verified. Fire risk assessed and interventions discussed. Implants: are not applicable. Sign Out: Specimens not collected. All instruments, equipment, possible retained foreign bodies are accounted for. Yes. The post-procedure plan of care has been communicated to patient's multidisciplinary team (including bedside nurse for hospitalized patients). PROCEDURE PREP-Cysto Patient ID with two(2)identifiers verified by: Jesus Alberto Baird MA Heart valve replacement: No Joint replacement: No Pre-Procedure Antibiotics: Bactrim DS 160mg-800mg orally, given during visit @ 1303 , by Jesus Alberto Baird MA Patient Prep: Betadine Scrub to perineum and placement of Sterile Drape. COMPLETED Anesthetic Given:10 cc 2% Lidocaine jelly and Administered by MD - see Procedure Physician Note. Jesus Alberto Baird MA UNIVERSAL PROTOCOL / SAFETY CHECKLIST Procedure to be performed: Cystoscopy Sign in Communication: Completed Time Out: Team Confirms the Correct Patient, Correct Procedure, Correct Site and Site Marking, Correct Position (if applicable). Sign Out Discussion: Completed Jesus Alberto Baird MA POST PROCEDURE NURSE ASSESSMENT Present along with physician during procedure exam. Jesus Alberto Baird MA Procedure/Indication: Cystoscopy Instruction sheet given and reviewed and patient verbalizes understanding: yes Post-Procedure Vital Signs: BP: 148/71 Pulse: 81 Post Procedure Antibiotic: none Current pain intensity is 0 on a 0-10 pain scale. Jesus Alberto Baird MA AMBULATORY PATIENT EDUCATION THE FOLLOWING WAS EVALUATED Motivation To Learn: Interested Family/Significant Other Support: Unable to assess - Family not present Cognitive Ability: Alert/Oriented Method of Instruction: Individual instruction Written instruction/Handouts Verbal instruction The Following Influencing Factors Were Barriers To This Education Session: None The Following Physical Limitations Were Barriers To This Education Session: None Instruction Provided To: Patient Circulation Man Present: not applicable Discipline: Nursing Learning Topic: SURVIVAL SKILLS: Complication Prevention Symptom Management Patient Evaluation: Verbalizes understanding: Yes Supplemental Material Given: Written Material Instructed By Jesus Alberto Baird MA In Department Urology . 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 Presenting for surveillance cystoscopy. The patient was on chemotherapy with cisplatin plus gemcitabine 2 weeks on [address] Dasilva started 11/05/2023. The patient is under the care of a medical oncologist, Dr. 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 He reports using a catheter for bladder management and notes that his urine is usually a light yellow color, but the last portion of urine is cloudy and resembles ground up aspirin. He denies any malodor associated with the urine and maintains good hygiene by washing his hands thoroughly and using a wipe for his genital area before catheterization. He denies any other urinary issues. The patient mentions that he is not currently scheduled for any scans with Dr. Dasilva and is done with them for the time being. He also reports that a couple of small spots were noticed on his thyroid, and samples were taken, but the results were inconclusive. He is scheduled to follow up in 3 months for further evaluation. CT Abd/Ch (more content not included)... Normal [facility] CYTOLOGY NON-GYNon 5 AP DISCLAIMER [facility] Comment on above: Order Comment: Speci men Type: URINE SPECIMENOrdering Facility: [facility] Address: [address] [place] [address] Result Comment: Tiffany ortiz Developed Test (LDT) Disclaimer: Performance characteristics of immunohistochemical, immunofluorescent, and chromogenic in-situ hybridization tests have been determined by the performing laboratory within [facility] Pathology and Laboratory Medicine Department ([facility], [facility], [facility], [facility], [facility], [facility], [facility]1983, or [facility]) in a manner consistent with CLIA requirements. One or more of these tests may not have been cleared or approved by the FDA. [facility] is regulated under CLIA as qualified to perform high-complexity testing. These tests are used for clinical purposes. These should not be regarded as investigational or for research. Positive and negative controls stain appropriately. Performed By: #### C YTONON ####[facility] LABORATORYCLIA [id number] [place] [address] [place] CASE REPORT [facility] Comment on above: Order Comment: Speci men Type: URINE SPECIMENOrdering Facility: [facility] Address: [address] [place] [address] Result Comment: [facility] Cytology Report Case: [id number] Authorizing Provider: Jason Will MD Collected: 08/28/2024 01:34 PM Ordering Location: Urology Received: 08/29/2024 06:57 AM Pathologist: Pablo Burton MD Specimen: Urine, Midstream Performed By: #### C YTONON ####[facility]SON LABORATORYCLIA [id number] [address] CLINICAL HISTORY History of bladder cancer Normal [facility] Comment on above: Order Comment: Speci men Type: URINE SPECIMENOrdering Facility: [facility] Address: [address] [place] [address] Performed By: #### C YTONON ####D[facility] LABORATORYCLIA [id number] [address] OF [facility] FINAL DIAGNOSIS Normal [facility] Comment on above: Order Comment: Speci men Type: URINE SPECIMENOrdering Facility: [facility] Address: [address] [place] [address] Result Comment: A - Urine, Voided: Negative for high-grade urothelial carcinoma. Abundant acute inflammation and bacteria. at 1223 EDT Performed By: #### C YTONON ####DODSON LABORATORYCLIA [id number] [address] FINAL PERFORMING LAB Normal [facility] Comment on above: Order Comment: Speci men Type: URINE SPECIMENOrdering Facility: [facility] Address: [address] [place] [address] Result Comment: Tech nical component, minister helper screening performed at: [facility], [address] [place] [address] CLIA: [id number] Diagnostic interpretation performed at: [facility], [address] [place] [address] CLIA# [id number] Rehabilitation Team Lead: Marco Antonio Russell MD Performed By: #### C YTONON ####[facility] LABORATORYCLIA [id number] [address] GROSS DESCRIPTION Normal [facility] Comment on above: Order Comment: Speci men Type: URINE SPECIMENOrdering Facility: [facility] Address: [address] [place] [address] Result Comment: A. U rine, Midstream 10 cc hazy yellow fluid. ThinPrep prepared. Performed By: #### C MADI ####[facility]BO LABORATORYIA [id number] [address] OF [facility] Gregoria 08-13-2024 CNPN Telephone (URFMOB) JOLLY SIERRA ([id number]) 1945 M Date Time Provider Department 08/13/24 JASON WILL During your visit today, we recorded the following information about you: Noe Ibarra 08/13/2024 11:04 AM Signed Called patient and left voicemail informing them of rescheduled appointment with Dr. Will. Allergies As of Date: 08/13/2024 (No Known Allergies) Date Reviewed: 06/12/2024 Reviewed by: Anni Perez MA - Fully Assessed Reason for Visit: rescheduled appointment [Other] Prescriptions as of 08/13/2024 - spironolactone (ALDACTONE) 50 mg tablet Take 50 mg by mouth once daily. - psyllium seed, with sugar, (METAMUCIL, SUGAR, ORAL) Take by mouth. - ondansetron (ZOFRAN) 8 mg tablet Take 1 tablet by mouth every 8 hours as needed for nausea/vomiting. - prochlorperazine (COMPAZINE) 10 mg tablet Take 1 tablet by mouth every 6 hours as needed. - ramipril (ALTACE) 10 mg capsule Take 10 mg by mouth once daily. 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/2024 Encounter Status:Closed by NOE IBARRA on 08/13/24 [facility] 08-04-2024 L -- ---- Specimen: [id number] Received: 08/05/24 Status: KAY Mcelroykelly Num: [id number] Spec Type: Cytology Subm Dr: Rubén Newman DO Tissues: A FNA SLIDES NOPATH (RT THYROID NODULE) B FNA SLIDES NOPATH (LT THYROID NODULE) Procedures: Cyto Int and Re/2, PAPSTN22 ---- Age/ Patient Sex Location Account Attending Physician ---- Jolly Sierra/Aden LOCKE [id number] Rubén Newman DO ---- SPEC NUM: [id number] RECD: 08/05/24 STATUS: KAY POE NUM: [id number] TAVON: 08/04/[address] [facility] [address]: Rubén Newman DO ENTERED: 08/05/[address] [facility] [address]: SPEC TYPE: Cytology DEPT: CNG ENTERED BY: [id number] RECV BY: [id number] ORDERED: Cyto Int and Re/2, PAPSTN/22 ORDERED: Cyto Int and Re/2, PAPSTN/22 Pathological Diagnosis A: Right thyroid nodule, FNA cytology: -Only rare follicular cells including rare follicular groups and some blood cells with minor admixed colloid and rare suspected dispersed follicular cells, and too limited and not applicable for overall assessment, therefore consistent with the Category 1 [place] system: Nondiagnostic B, left thyroid nodule, FNA cytology: -Occasional follicular cells are present in some smears but mostly as tiny crushed cellular clusters, and only <10 more preserved groups for assessment, and although mostly containing small bland looking follicular cells but are still limited for overall assessment, and is consistent with the category 1 [place] system: Nondiagnostic Clinical Information Bilateral Thyroid Nodule ---- Specimen: [id number] Received: 08/05/24 Status: KAY Poe Num: [id number] Spec Type: Cytology Subm Dr: Rubén Newman DO Tissues: A FNA SLIDES NOPATH (RT THYROID NODULE) B FNA SLIDES NOPATH (LT THYROID NODULE) Procedures: Cyto Int and Re/2, PAPSTN/22 ---- Patient: Jolly Sierra [id number] (Continued) ---- Specimen: [id number] Received: 08/05/24 (Continued) Signed (signature on file) Jitendra Gambino MD 08/07/24 1704 ---- Specimen: [id number] Received: 08/05/24 Status: KAY Poe Num: [id number] Spec Type: Cytology Subm Dr: Rubén NewmanDO Tissues: A FNA SLIDES NOPATH (RT THYROID NODULE) B FNA SLIDES NOPATH (LT THYROID NODULE) Procedures: Cyto Int and Re/2, PAPSTN/22 ---- Patient: Javi Sierraard [id number] (Continued) ---- Specimen: [id number] Received: 08/05/24 (Continued) Gross Description A.(RIGHT) Received fixed in Cytolyt is 30 ml very pale pink clear fixed fluid for cytology said to have been obtained as Right Thyroid Nodule. ThinPrep preparations are prepared for microscopic examination. Also received are 10 spray fixed smeared slides for pap and a Thyroseq stored at -20 for microscopic examination. (/nj) B.(LEFT) Received fixed in Cytolyt is 30 ml very pale pink clear fixed fluid for cytology said to have been obtained as Left Thyroid Nodule. ThinPrep preparations are prepared for microscopic examination. Also received are 10 spray fixed smeared slides for pap and a Thyroseq stored at -20 for microscopic examination. (/nj) Microscopic Description Microscopic examination is performed CPT Codes 46119r8 ---- ---- Specimen: [id number] Received: 08/05/24 Status: KAY Poe Num: [id number] Spec Type: Cytology Subm Dr: Rubén Newman,DO Tissues: A FNA SLIDES NOPATH (RT THYROID NODULE) B FNA SLIDES NOPATH (LT THYROID NODULE) Procedures: Cyto Int and Re/2, PAPSTN/22 ---- Patient: Jolly Sierra [id number] (Continued) ---- Signed (signature on file) Chin-Oleksandr Gambino MD 08/07/24 1704 Normal [facility] Parathyrin.intact [Mass/Vol] on 07-14-2024 PARATHYROID HORMONE INTACT 44.7 pg/mL pg/mL [facility] Parathyrin.intact [Mass/volu me] in Serum or PlasmaOrdered By: Rubén Newman on 07-14-2024 Parathyrin.intact [Mass/Vol] Parathyrin.intact [Mass/volume] in Serum or Plasma [facility] Parathyroid Hormone Intacton 07-14-2024 Parathyroid Hormone Intact 44.7 pg/mL Normal [facility] Comment on above: Result Comment: PERF ORMED BY: [facility] [address] [place] [address] PATHOLOGIST SECURITY ORDERLY RENETTA LAROSE M.D. Performed By: #### T 3T, TSH3, T4T, PTH #### [facility] [address] Thyroid Stimulating Hormoneo n 07-14-2024 TSH Qn 1.03 m[IU]/L Normal 0.45-5.33 [facility] Comment on above: Result Comment: PERF ORMED BY: [place] [address] PATHOLOGIST SECURITY ORDERLY RENETTA LAROSE M.D. Performed By: #### T 3T, TSH3, T4T, PTH #### [address] Thyrotropin [Units/volume] i n Serum or PlasmaOrdered By: Rubén Newman on 07-14-2024 TSH Qn Thyrotropin [Units/volume] in Serum or Plasma 0.45-5.33 [facility] Thyroxine (T4) Totalon 07-14 T4 [Mass/Vol] 10.16 ug/dL Normal 5.39-11.82 [facility] Comment on above: Performed By: #### T 3T, TSH3, T4T, PTH #### [address] Thyroxine (T4) [Mass/volume] in Serum or PlasmaOrdered By: Rubén Newman on 07-14-2024 T4 [Mass/Vol] Thyroxine (T4) [Mass/volume] in Serum or Plasma 5.39-11.82 [facility] Triiodothyronine (T3) Totalo n 07-14-2024 Triiodothyronine (T3) Total 1.05 ng/mL Normal 0.87-1.78 [facility] Comment on above: Performed By: #### T 3T, TSH3, T4T, PTH #### [address] Triiodothyronine (T3) [Mass/ volume] in Serum or PlasmaOrdered By: Rubén Newman on 07-14-2024 T3 [Mass/Vol] Triiodothyronine (T3 ) [Mass/volume] in Serum or Plasma 0.87-1.78 [facility] CNPNon 06-19-2024 CNPN Telephone ([employer]) JOLLY SIERRA ([id number]) 1945 M Date Time Provider Department 06/19/24 DONALD PEREZ During your visit today, we recorded the following information about you: Donald Perez, HANK 06/19/2024 4:38 PM Signed Thyroid US done 06/18/24. Results recommend US-guided biopsy. Dr Dasilva would like pt to see ENT either through [facility] or locally (Dr Newman). Pt notified and agrees to local referral. BRM/RAJWINDER: Referral for ENT pended. HANK Galloway Rebecca, HANK 06/20/2024 8:38 AM Signed Clerical: Please refer pt to Dr Newman for thyroid biopsy. Thanks! HANK Galloway Jodi 06/20/2024 9:06 AM Signed Saira Muhammad - could you please send records Temitope Sousa 06/20/2024 9:18 AM Signed I faxed over the referral to [facility] [phone] fax number Mahi Oro 06/20/2024 9:56 AM Signed Records faxed to [facility]. Temitope Sousa 06/23/2024 10:02 AM Signed Order received, office to call patient to schedule Temitope Sousa 06/24/2024 9:02 AM Signed Spoke to [place] at ENT, she claims they just got referral and will call patient. She states it will take a minute. She sounded bothered by my call. Temitope Sousa 06/27/2024 9:16 AM Signed Patient still not scheduled. They will call him. Temitope Sousa 07/01/2024 1:10 PM Signed Spoke to ENT office, not scheduled yet Temitope Sousa 07/07/2024 2:03 PM Signed Spoke to [place] patient is scheduled on 07/14 at 1030. Allergies As of Date: 06/19/2024 (No Known Allergies) Date Reviewed: 06/12/2024 Reviewed by: Perez, Anni, MA - Fully Assessed Reason for Visit: Care Coordination [1101] Cmt: Thyroid US Primary Visit Diagnosis:Thyroid nodule [E04.1] Order(s):CONSULT TO ENT [900] Order #: [id number]: 1 FUTURE Prescriptions as of 07/10/2024 - spironolactone (ALDACTONE) 50 mg tablet Take 50 mg by mouth once daily. - psyllium seed, with sugar, (METAMUCIL, SUGAR, ORAL) Take by mouth. - ondansetron (ZOFRAN) 8 mg tablet Take 1 tablet by mouth every 8 hours as needed for nausea/vomiting. - prochlorperazine (COMPAZINE) 10 mg tablet Take 1 tablet by mouth every 6 hours as needed. - ramipril (ALTACE) 10 mg capsule Take 10 mg by mouth once daily. 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 Jason Will, Dr. Antonio Gary Portions of this encounter note have been copied from the note from 03/11/2024 and has been updated where appropriate, and reflect my current medical decision making from today. CC: This is a 79 year old male with a history of localized bladder cancer, seen for scheduled follow-up. INTERM HISTORY: Since the patient's last visit here he has had no significant medical changes. As result of his neurogenic bladder he continues to self cath 4 times daily. He notices that the final few drops of urine appear cloudy, but no hematuria or other signs of infection. Overall he feels well with no particular complaints today. MEDICATIONS: Current Outpatient Medications Medication Sig spironolactone (ALDACTONE) 50 mg tablet Take 50 mg by mouth once daily. psyllium seed, with sugar, (METAMUCIL, SUGAR, ORAL) Take by mouth. ondansetron (ZOFRAN) 8 mg tablet Take 1 tablet by mouth every 8 hours as needed for nausea/vomiting. prochlorperazine (COMPAZINE) 10 mg tablet Take 1 tablet by mouth every 6 hours as needed. ramipril (ALTACE) 10 mg capsule Take 10 mg by mouth once daily. No current facility-administered medications for this visit. ALLERGIES: ALLERGIES No Known Allergies PAST MEDICAL HISTORY: PAST MEDICAL HISTORY Diagnosis Date HLD (hyperlipidemia) HTN (hypertension) Neurogenic bladder PAST SURGICAL HISTORY: PAST SURGICAL HISTORY Procedure Laterality Date CYSTOSCOPY PAST SURGICAL HISTORY OF 2006 bladder surgery PAST SURGICAL HISTORY OF Robotic Laproscopic Cystoplasty bladder augmentation with stent FAMILY HISTORY: FAMILY HISTORY Problem Relation Age of Onset Heart disease Father SOCIAL HISTORY: Social History Tobacco Use Smoking status: Never Passive exposure: Never Smokeless tobacco: Never Vaping Use Vaping status: Never Used Substance Use Topics Alcohol use: Not Currently Drug use: Never COMPLETE REVIEW OF SYSTEMS: CONSTITUTION: Negative for pain, fatigue, weight loss, or appetite loss. EENT: Negative for mouth soreness, antibiotics use, epistaxis, visual problems, neck or facial swelling, fever/chills, bleeding gums, or hearing loss. CV: +mild L ankle edema. Negative for calf swelling, palpitations, or chest pain. RESPIRATORY: Negative for cough, SOB, hemoptysis, or wheezing. GI: +mild nausea. Negative for vomiting, heartburn, vomiting blood, dysphasia, diarrhea, blood in stool, constipation, early satiety, PICA, vegetarian, poor nutrition, abdominal fullness, or abdominal pain. NEUROLOGICAL: Negative for numbness/tingling, dizziness, gait disturbance, headache, speech disturbance, tremor, hemiparesis/sensory loss, or change in mental status. MUSCULOSKELETAL: Negative for joint pain, joint swelling, or proximal muscle weakness. SKIN: Negative for hair loss, bruising, nail changes, rash, itching, pallor, or jaundice. ENDO/URO: Negative for hot flashes, cold or heat intolerance, urinary frequency, urinary hesitancy, menorrhagia, or hematuria. PSYCH: Negative for anxiety, depression, or other. PHYSICAL EXAM: BP 123/71 Pulse 70 Temp 36.2 ?C (97.2 ?F) (Temporal) Resp 16 Ht 177.8 cm (5' 10 ) Wt 85.2 kg (187 lb 13.3 oz) SpO2 97% BMI 26.95 kg/m? General: Alert and oriented, no distress, pleasant and cooperative. Heart: Regular, normal S1 and S2, no murmurs, rubs, or gallops Lungs: Clear to auscultation bilaterally Abdomen: Benign Extremities: Feet/ankles without edema, right medial antecub with small area of swelling, no redness or warmth PATHOLOGY: 02/18/2024 Cystoscopy bladder mucosa with mixed acute and chronic inflammation and reactive changes. No muscularis propria identified 09/06/2023 Robotic bladder diverticulectomy and right pelvic lymph node dissection. A. Urinary bladder, neck of diverticulum, excision: - Benign bladder mucosa and muscularis propria. B. Lymph nodes, right pelvic, regional resection: - Two lymph nodes, negative for malignancy (0/2). C. 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 - Margins are negative for tumor. LABS: Hemoglobin (g/dL) Date Value 06/04/2024 11.5 Hematocrit (%) Date Value 06/04/2024 35.0 WBC (k/uL) Hernan (more content not included)... Normal [facility] CBC W Auto Differential pane l (Bld)on 06-04-2024 Basophils (Bld) [#/Vol] [facility] Basophils/100 WBC (Bld) 0.3 % [facility] Differential cell count method Nom (Bld) Auto [facility] Eosinophils (Bld) [#/Vol] 0.04 10*3/uL [facility] Eosinophils/100 WBC (Bld) 0.7 % [facility] Erythrocyte distribution width (RBC) [Ratio] 13.6 % 11.5 - 15.0 % [facility] Hematocrit (Bld) [Volume fraction] 35.0 % Low 39.0 - 51.0 % [facility] Hemoglobin (Bld) [Mass/Vol] 11.5 g/dL Low 13.0 - 17.0 g/dL [facility] Immature granulocytes (Bld) [#/Vol] 0.03 10*3/uL [facility] Immature granulocytes/100 WBC (Bld) 0.5 % [facility] Interpretation and review of laboratory results Abnormal [facility] Lymphocytes (Bld) [#/Vol] 1.59 10*3/uL [facility] Lymphocytes/100 WBC (Bld) 26.2 % [facility] MCH (RBC) [Entitic mass] 30.4 pg 26.0 - 34.0 pg [facility] MCHC (RBC) [Mass/Vol] 32.9 g/dL 30.5 - 36.0 g/dL [facility] MCV (RBC) [Entitic vol] 92.6 fL 80.0 - 100.0 fL [facility] Monocytes (Bld) [#/Vol] 0.51 10*3/uL [facility] Monocytes/100 WBC (Bld) 8.4 % [facility] Neutrophils (Bld) [#/Vol] 3.89 10*3/uL [facility] Neutrophils/100 WBC (Bld) 63.9 % [facility] Nucleated RBC (Bld) [#/Vol] [facility] Nucleated RBC/100 WBC (Bld) [Ratio] 0.0 % /100 WBC [facility] Platelet mean volume (Bld) [Entitic vol] 10.6 fL 9.0 - 12.7 fL [facility] Platelets (Bld) [#/Vol] 168 10*3/uL [facility] RBC (Bld) [#/Vol] 3.78 10*6/uL Low 4.20 - 6.0 0 m/uL [facility] WBC (Bld) [#/Vol] 6.08 10*3/uL [facility] Basophils (Bld) [#/Vol] 10*3/uL Normal <0.11 [facility] Comment on above: Order Comment: Speci men Type: BLOOD SPECIMENOrdering Facility: [facility] Address: [address] [place] [address] Performed By: #### 5 7021-8 ####[facility] LABCLIA [id number] [place] [address] Basophils/100 WBC (Bld) 0.3 % Normal [facility] Comment on above: Order Comment: Speci men Type: BLOOD SPECIMENOrdering Facility: [facility] Address: [address] [place] [address] Performed By: #### 5 7021-8 ####[facility] LABCLIA [id number] [place] [address] Differential cell count method Nom (Bld) Auto Normal [facility] Comment on above: Order Comment: Speci men Type: BLOOD SPECIMENOrdering Facility: [facility] Address: [address] [place] [address] Performed By: #### 5 7021-8 ####[facility] LABCLIA [id number] [place] [address] Eosinophils (Bld) [#/Vol] 0.04 10*3/uL Normal <0.46 [facility] Comment on above: Order Comment: Speci men Type: BLOOD SPECIMENOrdering Facility: [facility] Address: [address] [place] [address] Performed By: #### 5 7021-8 ####[facility] LABCLIA [id number] [place] [address] Eosinophils/100 WBC (Bld) 0.7 % Normal [facility] Comment on above: Order Comment: Speci men Type: BLOOD SPECIMENOrdering Facility: [facility] Address: [address] [place] [address] Performed By: #### 5 7021-8 ####[facility] LABCLIA [id number] [place] [address] Erythrocyte distribution width (RBC) [Ratio] 13.6 % Normal 11.5-15.0 [facility] Comment on above: Order Comment: Speci men Type: BLOOD SPECIMENOrdering Facility: [facility] Address: [address] [place] [address] Performed By: #### 5 7021-8 ####[facility] LABCLIA [id number] [place] [address] Hematocrit (Bld) [Volume fraction] 35.0 % Low 39.0-51.0 [facility] Comment on above: Order Comment: Speci men Type: BLOOD SPECIMENOrdering Facility: [facility] Address: [address] [place] [address] Performed By: #### 5 7021-8 ####[facility] LABIA [id number] [place] [address] Hemoglobin (Bld) [Mass/Vol] 11.5 g/dL Low 13.0-17.0 [facility] Comment on above: Order Comment: Speci men Type: BLOOD SPECIMENOrdering Facility: [facility] Address: [address] [place] [address] Performed By: #### 5 7021-8 ####[facility] LABIA [id number] [place] [address] Immature granulocytes (Bld) [#/Vol] 0.03 10*3/uL Normal <0.10 [facility] Comment on above: Order Comment: Speci men Type: BLOOD SPECIMENOrdering Facility: [facility] Address: [address] [place] [address] Performed By: #### 5 7021-8 ####[facility] LABCLIA [id number] [place] [address] Immature granulocytes/100 WBC (Bld) 0.5 % Normal [facility] Comment on above: Order Comment: Speci men Type: BLOOD SPECIMENOrdering Facility: [facility] Address: [address] [place] [address] Performed By: #### 5 7021-8 ####[facility] LABCLIA [id number] [place] [address] Lymphocytes (Bld) [#/Vol] 1.59 10*3/uL Normal 1.00-4.00 [facility] Comment on above: Order Comment: Speci men Type: BLOOD SPECIMENOrdering Facility: [facility] Address: [address] [place] [address] Performed By: #### 5 7021-8 ####[facility] LABCLIA [id number] [place] [address] Lymphocytes/100 WBC (Bld) 26.2 % Normal [facility] Comment on above: Order Comment: Speci men Type: BLOOD SPECIMENOrdering Facility: [facility] Address: [address] [place] [address] Performed By: #### 5 7021-8 ####[facility] LABCLIA [id number] [place] [address] MCH (RBC) [Entitic mass] 30.4 pg Normal 26.0-34.0 [facility] Comment on above: Order Comment: Speci men Type: BLOOD SPECIMENOrdering Facility: [facility] Address: [address] [place] [address] Performed By: #### 5 7021-8 ####[facility] LABIA [id number] [place] [address] MCHC (RBC) [Mass/Vol] 32.9 g/dL Normal 30.5-36.0 [facility] Comment on above: Order Comment: Speci men Type: BLOOD SPECIMENOrdering Facility: [facility] Address: [address] [place] [address] Performed By: #### 5 7021-8 ####[facility] LABCLIA [id number] [place] [address] MCV (RBC) [Entitic vol] 92.6 fL Normal 80.0-100.0 [facility] Comment on above: Order Comment: Speci men Type: BLOOD SPECIMENOrdering Facility: [facility] Address: [address] [place] [address] Performed By: #### 5 7021-8 ####[facility] LABCLIA [id number] [place] [address] Monocytes (Bld) [#/Vol] 0.51 10*3/uL Normal <0.87 [facility] Comment on above: Order Comment: Speci men Type: BLOOD SPECIMENOrdering Facility: [facility] Address: [address] [place] [address] Performed By: #### 5 7021-8 ####[facility] LABCLIA [id number] [place] [address] Monocytes/100 WBC (Bld) 8.4 % Normal [facility] Comment on above: Order Comment: Speci men Type: BLOOD SPECIMENOrdering Facility: [facility] Address: [address] [place] [address] Performed By: #### 5 7021-8 ####[facility] LABCLIA [id number] [place] [address] Neutrophils (Bld) [#/Vol] 3.89 10*3/uL Normal 1.45-7.50 [facility] Comment on above: Order Comment: Speci men Type: BLOOD SPECIMENOrdering Facility: [facility] Address: [address] [place] [address] Performed By: #### 5 7021-8 ####[facility] LABCLIA [id number] [place] [address] Neutrophils/100 WBC (Bld) 63.9 % Normal [facility] Comment on above: Order Comment: Speci men Type: BLOOD SPECIMENOrdering Facility: [facility] Address: [address] [place] [address] Performed By: #### 5 7021-8 ####[facility] LABCLIA [id number] [place] [address] Nucleated RBC (Bld) [#/Vol] 10*3/uL Normal <0.01 [facility] Comment on above: Order Comment: Speci men Type: BLOOD SPECIMENOrdering Facility: [facility] Address: [address] [place] [address] Performed By: #### 5 7021-8 ####[facility] LABCLIA [id number] [place] [address] Nucleated RBC/100 WBC (Bld) [Ratio] 0.0 /100 WBC Normal [facility] Comment on above: Order Comment: Speci men Type: BLOOD SPECIMENOrdering Facility: [facility] Address: [address] [place] [address] Performed By: #### 5 7021-8 ####[facility] LABCLIA [id number] [place] [address] Platelet mean volume (Bld) [Entitic vol] 10.6 fL Normal 9.0-12.7 [facility] Comment on above: Order Comment: Speci men Type: BLOOD SPECIMENOrdering Facility: [facility] Address: [address] [place] [address] Performed By: #### 5 7021-8 ####[facility] LABCLIA [id number] [place] [address] Platelets (Bld) [#/Vol] 168 10*3/uL Normal 150-400 [facility] Comment on above: Order Comment: Speci men Type: BLOOD SPECIMENOrdering Facility: [facility] Address: [address] [place] [address] Performed By: #### 5 7021-8 ####[facility] LABCLIA [id number] [place] [address] RBC (Bld) [#/Vol] 3.78 10*6/uL Low 4.20-6.00 [facility] Comment on above: Order Comment: Speci men Type: BLOOD SPECIMENOrdering Facility: [facility] Address: [address] [place] [address] Performed By: #### 5 7021-8 ####[facility] LABCLIA [id number] [place] [address] WBC (Bld) [#/Vol] 6.08 10*3/uL Normal 3.70-11.00 [facility] Comment on above: Order Comment: Speci men Type: BLOOD SPECIMENOrdering Facility: [facility] Address: [address] [place] [address] Performed By: #### 5 7021-8 ####[facility] LABCLIA [id number] [place] [address] CT ABD/PEL W IVCONon 025 CT ABD/PEL W IVCON * * *Final Report* * * DATE OF EXAM: Jun 04 2024 11:17AM [facility] 0530 - CT ABD/PEL W IVCON / PROCEDURE REASON: Malignant neoplasm of overlapping sites of bladder (HCC) * * * * Physician Interpretation * * * * RESULT: EXAMINATION: CT ABDOMEN AND PELVIS WITH IV CONTRAST PATIENT/TECHNOLOGIST PROVIDED HISTORY: bladder cancer CLINICAL INFORMATION ( PROVIDED BY ORDERING CLINICIAN) : 78 years old Male with Malignant neoplasm of overlapping sites of bladder (HCC) . Status post robotic bladder diverticulectomy [complicated] and right pelvic lymph node dissection. 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 Margins are negative for tumor. Urinary bladder, neck of diverticulum, excision: - Benign bladder mucosa and muscularis propria. Two lymph nodes, negative for malignancy (0/2). TECHNIQUE: CT of the abdomen and pelvis was performed using standard technique, scanning from just above the dome of the diaphragm to the pubic symphysis. . Contrast: IV: 100 ml of Omnipaque 350 Oral: 500 ml of Omni 240 10-25ml diluted with water CT Radiation dose: Integrated Dose-length product (DLP) for this visit = 1093 mGy*cm. CT Dose Reduction Employed: Automated exposure control (AEC) COMPARISON: PET CT 10/16/[address] urogram 09/03/2023 Abdomen / Pelvis: Liver: Unchanged subcentimeter low-attenuation lesion left hepatic lobe. Spleen: No focal splenic lesion. 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 Thickening of the left adrenal gland. Adrenals: No mass. Biliary: No bile duct dilation. No gallbladder wall thickening. Kidneys: Symmetric nephrograms bilaterally without hydronephrosis. Vasculature: The celiac axis and SMA are patent. The portal vein and branches, splenic vein, SMV, and hepatic veins are patent. Severe atherosclerotic calcifications of the abdominal aorta without aneurysm. GI tract: No bowel obstruction. Normal appendix. Lymph nodes: No lymphadenopathy by CT size criteria. Mesentery/Peritoneum: No ascites, fluid collection, or mass. Pelvis: No mass or fluid collection. Diverticulectomy. Right lateral bladder wall thickening with mural hyperenhancement. Subtle soft tissue thickening and enhancement involving the distal right ureter (axial image 116-120). Postsurgical changes of left inguinal hernia appear. Fat-containing right inguinal hernia. Bones/Soft tissues: No aggressive osseous lesions. Lower thorax: Dedicated CT imaging of the chest was performed concurrently and is dictated separately. Frame Repairer (topogram) images: Unremarkable. IMPRESSION: Right lateral bladder wall thickening with mural hyperenhancement. Subtle soft tissue thickening and enhancement involving the distal right ureter. Recommend correlation with cystoscopy and retrograde studies to assess for neoplasm involving the right ureter. No metastatic disease in the abdomen or pelvis. Transcribe Date/Time: Jun 04 2024 12:25P Dictated by: CHERRIE RODRIGUEZ MD This examination was interpreted and the report reviewed and electronically signed by: CHERRIE RODRIGUEZ MD on Jun 04 2024 12:35PM EST Thank you for allowing us to participate in the care of your patient. Should there be any questions regarding this interpretation, please call [phone]. If you are unable to reach us at the number above, please feel free to contact [facility] at [phone]. [id number] Normal [facility] CT Abdomen and Pelvis W cont rast Anand 06-04-2024 IMPRESSION: Right lateral bladder wall thickening with mural hyperenhancement. Subtle soft tissue thickening and enhancement involving the distal right ureter. Recommend correlation with cystoscopy and retrograde studies to assess for neoplasm involving the right ureter. No metastatic disease in the abdomen or pelvis. Transcribe Date/Time: Jun 04 2024 12:25P Dictated by: CHERRIE RODRIGUEZ MD This examination was interpreted and the report reviewed and electronically signed by: CHERRIE RODRIGUEZ MD on Jun 04 2024 12:35PM EST Thank you for allowing us to participate in the care of your patient. Should there be any questions regarding this interpretation, please call [phone]. If you are unable to reach us at the number above, please feel free to contact [facility] at [phone]. DIVISION OF RADIOLOGY * * *Final Report* * * DATE OF EXAM: Jun 04 2024 11:17AM [facility] 0530 - CT ABD/PEL W IVCON / PROCEDURE REASON: Malignant neoplasm of overlapping sites of bladder (HCC) * * * * Physician Interpretation * * * * RESULT: EXAMINATION: CT ABDOMEN AND PELVIS WITH IV CONTRAST PATIENT/TECHNOLOGIST PROVIDED HISTORY: bladder cancer CLINICAL INFORMATION ( PROVIDED BY ORDERING CLINICIAN) : 78 years old Male with Malignant neoplasm of overlapping sites of bladder (HCC) . Status post robotic bladder diverticulectomy [complicated] & right pelvic lymph node dissection. 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 Margins are negative for tumor. Urinary bladder, neck of diverticulum, excision: - Benign bladder mucosa and muscularis propria. Two lymph nodes, negative for malignancy (0/2). TECHNIQUE: CT of the abdomen and pelvis was performed using standard technique, scanning from just above the dome of the diaphragm to the pubic symphysis. . Contrast: IV: 100 ml of Omnipaque 350 Oral: 500 ml of Omni 240 10-25ml diluted with water CT Radiation dose: Integrated Dose-length product (DLP) for this visit = 1093 mGy*cm. CT Dose Reduction Employed: Automated exposure control (AEC) COMPARISON: PET CT 10/16/[address] urogram 09/03/2023 Abdomen / Pelvis: Liver: Unchanged subcentimeter low-attenuation lesion left hepatic lobe. Spleen: No focal splenic lesion. 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 Thickening of the left adrenal gland. Adrenals: No mass. Biliary: No bile duct dilation. No gallbladder wall thickening. Kidneys: Symmetric nephrograms bilaterally without hydronephrosis. Vasculature: The celiac axis and SMA are patent. The portal vein and branches, splenic vein, SMV, and hepatic veins are patent. Severe atherosclerotic calcifications of the abdominal aorta without aneurysm. GI tract: No bowel obstruction. Normal appendix. Lymph nodes: No lymphadenopathy by CT size criteria. Mesentery/Peritoneum: No ascites, fluid collection, or mass. Pelvis: No mass or fluid collection. Diverticulectomy. Right lateral bladder wall thickening with mural hyperenhancement. Subtle soft tissue thickening and enhancement involving the distal right ureter (axial image [id number]). Postsurgical changes of left inguinal hernia appear. Fat-containing right inguinal hernia. Bones/Soft tissues: No aggressive osseous lesions. Lower thorax: Dedicated CT imaging of the chest was performed concurrently and is dictated separately. Frame Repairer (topogram) images: Unremarkable. DIVISION OF RADIOLOGY Provider, [facility] - 06/04/2024 * * *Final Report* * * DATE OF EXAM: Jun 04 2024 11:17AM [facility] 0530 - CT ABD/PEL W IVCON / PROCEDURE REASON: Malignant neoplasm of overlapping sites of bladder (HCC) * * * * Physician Interpretation * * * * RESULT: EXAMINATION: CT ABDOMEN AND PELVIS WITH IV CONTRAST PATIENT/TECHNOLOGIST PROVIDED HISTORY: bladder cancer CLINICAL INFORMATION ( PROVIDED BY ORDERING CLINICIAN) : 78 years old Male with Malignant neoplasm of overlapping sites of bladder (HCC) . Status post robotic bladder diverticulectomy [complicated] & right pelvic lymph node dissection. 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 Margins are negative for tumor. Urinary bladder, neck of diverticulum, excision: - Benign bladder mucosa and muscularis propria. Two lymph nodes, negative for malignancy (0/2). TECHNIQUE: CT of the abdomen and pelvis was performed using standard technique, scanning from just above the dome of the diaphragm to the pubic symphysis. . Contrast: IV: 100 ml of Omnipaque 350 Oral: 500 ml of Omni 240 10-25ml diluted with water CT Radiation dose: Integrated Dose-length product (DLP) for this visit = 1093 mGy*cm. CT Dose Reduction Employed: Automated exposure control (AEC) COMPARISON: PET CT 10/16/[address] urogram 09/03/2023 Abdomen / Pelvis: Liver: Unchanged subcentimeter low-attenuation lesion left hepatic lobe. Spleen: No focal splenic lesion. 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 Thickening of the left adrenal gland. Adrenals: No mass. Biliary: No bile duct dilation. No gallbladder wall thickening. Kidneys: Symmetric nephrograms bilaterally without hydronephrosis. Vasculature: The celiac axis and SMA are patent. The portal vein and branches, splenic vein, SMV, and hepatic veins are patent. Severe atherosclerotic calcifications of the abdominal aorta without aneurysm. GI tract: No bowel obstruction. Normal appendix. Lymph nodes: No lymphadenopathy by CT size criteria. Mesentery/Peritoneum: No ascites, fluid collection, or mass. Pelvis: No mass or fluid collection. Diverticulectomy. Right lateral bladder wall thickening with mural hyperenhancement. Subtle soft tissue thickening and enhancement involving the distal right ureter (axial image [id number]). Postsurgical changes of left inguinal hernia appear. Fat-containing right inguinal hernia. Bones/Soft tissues: No aggressive osseous lesions. Lower thorax: Dedicated CT imaging of the chest was performed concurrently and is dictated separately. Frame Repairer (topogram) images: Unremarkable. IMPRESSION IMPRESSION: Right lateral bladder wall thickening with mural hyperenhancement. Subtle soft tissue thickening and enhancement involving the distal right ureter. Recommend correlation with cystoscopy and retrograde studies to assess for neoplasm involving the right ureter. No metastatic disease in the abdomen or pelvis. Transcribe Date/Time: Jun 04 2024 12:25P Dictated by: CHERRIE RODRIGUEZ MD This examination was interpreted and the report reviewed and electronically signed by: CHERRIE RODRIGUEZ MD on Jun 04 2024 12:35PM EST Thank you for allowing us to participate in the care of your patient. Should there be any questions regarding this interpretation, please call [phone]. If you are unable to reach us at the number above, please feel free to contact [facility] at [phone]. [facility] CT Abdomen and Pelvis W cont rast IVOrdered By: [facility] Provider on 06-04-[address] [facility] [address] CHEST W IVCONon CT CHEST W IVCON * * *Final Report* * * DATE OF EXAM: Jun 04 2024 11:17AM [facility] 0539 - CT CHEST W IVCON / PROCEDURE REASON: Malignant neoplasm of overlapping sites of bladder (HCC) * * * * Physician Interpretation * * * * RESULT: EXAMINATION: CHEST CT WITH CONTRAST CLINICAL HISTORY: Malignant neoplasm of overlapping sites of bladder (HCC) Technique: Spiral CT acquisition of the chest from the thoracic inlet to the upper abdomen following IV contrast. MQ: CTCWR_5 Contrast: 100 mL Omnipaque [address] Dose-Length Product: 1093 mGy*cm CT Dose Reduction Employed: Automated exposure control (AEC) Comparison: PET CT 10/16/2023 RESULT: Lines, tubes, and devices: None. Lung parenchyma and airways: Trachea and central airways are patent. Biapical pleuroparenchymal scarring. Unchanged 8 mm nodule left lung base (image 187) not clearly PET avid. 3 mm right upper lobe nodule (image 60) 4 mm subpleural right middle lobe nodule (image 134). 6 mm nodule along left major fissure (image 116). Pleural space: No pleural effusion or pneumothorax. Lower neck, lymph nodes, and mediastinum: No axillary, supraclavicular, mediastinal or hilar lymphadenopathy by CT size criteria. Heart, pericardium, and thoracic vessels: The heart is normal in size. No pericardial effusion. The thoracic aorta and main pulmonary artery are normal in caliber. Atherosclerotic calcifications of the thoracic aorta and coronary arteries. Bones/Soft Tissues: No aggressive osseous lesions. Upper abdomen: Dedicated CT imaging of the abdomen and pelvis was performed concurrently and is dictated separately. Frame Repairer (topogram) images: Unremarkable. IMPRESSION: Unchanged 8 mm left lower lobe nodule not clearly PET avid. Additional subcentimeter pulmonary nodules. Continued follow-up is recommended. No thoracic lymphadenopathy. Transcribe Date/Time: Jun 04 2024 11:53A Dictated by: CHERRIE RODRIGUEZ MD This examination was interpreted and the report reviewed and electronically signed by: CHERRIE RODRIGUEZ MD on Jun 04 2024 12:24PM EST Thank you for allowing us to participate in the care of your patient. Should there be any questions regarding this interpretation, please call [phone]. If you are unable to reach us at the number above, please feel free to contact [facility] at [phone]. [id number] Normal [facility] CT Chest W contrast Anand IMPRESSION: Unchanged 8 mm left lower lobe nodule not clearly PET avid. Additional subcentimeter pulmonary nodules. Continued follow-up is recommended. No thoracic lymphadenopathy. Transcribe Date/Time: Jun 04 2024 11:53A Dictated by: CHERRIE RODRIGUEZ MD This examination was interpreted and the report reviewed and electronically signed by: CHERRIE RODRIGUEZ MD on Jun 04 2024 12:24PM EST Thank you for allowing us to participate in the care of your patient. Should there be any questions regarding this interpretation, please call [phone]. If you are unable to reach us at the number above, please feel free to contact [facility] at [phone]. DIVISION OF RADIOLOGY * * *Final Report* * * DATE OF EXAM: Jun 04 2024 11:17AM [facility] 0539 - CT CHEST W IVCON / PROCEDURE REASON: Malignant neoplasm of overlapping sites of bladder (HCC) * * * * Physician Interpretation * * * * RESULT: EXAMINATION: CHEST CT WITH CONTRAST CLINICAL HISTORY: Malignant neoplasm of overlapping sites of bladder (HCC) Technique: Spiral CT acquisition of the chest from the thoracic inlet to the upper abdomen following IV contrast. MQ: CTCWR_5 Contrast: 100 mL Omnipaque [address] Dose-Length Product: 1093 mGy*cm CT Dose Reduction Employed: Automated exposure control (AEC) Comparison: PET CT 10/16/2023 RESULT: Lines, tubes, and devices: None. Lung parenchyma and airways: Trachea and central airways are patent. Biapical pleuroparenchymal scarring. Unchanged 8 mm nodule left lung base (image 187) not clearly PET avid. 3 mm right upper lobe nodule (image 60) 4 mm subpleural right middle lobe nodule (image 134). 6 mm nodule along left major fissure (image 116). Pleural space: No pleural effusion or pneumothorax. Lower neck, lymph nodes, and mediastinum: No axillary, supraclavicular, mediastinal or hilar lymphadenopathy by CT size criteria. Heart, pericardium, and thoracic vessels: The heart is normal in size. No pericardial effusion. The thoracic aorta and main pulmonary artery are normal in caliber. Atherosclerotic calcifications of the thoracic aorta and coronary arteries. Bones/Soft Tissues: No aggressive osseous lesions. Upper abdomen: Dedicated CT imaging of the abdomen and pelvis was performed concurrently and is dictated separately. Frame Repairer (topogram) images: Unremarkable. DIVISION OF RADIOLOGY Provider, [facility] - 06/04/2024 * * *Final Report* * * DATE OF EXAM: Jun 04 2024 11:17AM [facility] [id number] - CT CHEST W IVCON / PROCEDURE REASON: Malignant neoplasm of overlapping sites of bladder (HCC) * * * * Physician Interpretation * * * * RESULT: EXAMINATION: CHEST CT WITH CONTRAST CLINICAL HISTORY: Malignant neoplasm of overlapping sites of bladder (HCC) Technique: Spiral CT acquisition of the chest from the thoracic inlet to the upper abdomen following IV contrast. MQ: CTCWR_5 Contrast: 100 mL Omnipaque [address] Dose-Length Product: 1093 mGy*cm CT Dose Reduction Employed: Automated exposure control (AEC) Comparison: PET CT 10/16/2023 RESULT: Lines, tubes, and devices: None. Lung parenchyma and airways: Trachea and central airways are patent. Biapical pleuroparenchymal scarring. Unchanged 8 mm nodule left lung base (image 187) not clearly PET avid. 3 mm right upper lobe nodule (image 60) 4 mm subpleural right middle lobe nodule (image 134). 6 mm nodule along left major fissure (image 116). Pleural space: No pleural effusion or pneumothorax. Lower neck, lymph nodes, and mediastinum: No axillary, supraclavicular, mediastinal or hilar lymphadenopathy by CT size criteria. Heart, pericardium, and thoracic vessels: The heart is normal in size. No pericardial effusion. The thoracic aorta and main pulmonary artery are normal in caliber. Atherosclerotic calcifications of the thoracic aorta and coronary arteries. Bones/Soft Tissues: No aggressive osseous lesions. Upper abdomen: Dedicated CT imaging of the abdomen and pelvis was performed concurrently and is dictated separately. Frame Repairer (topogram) images: Unremarkable. IMPRESSION IMPRESSION: Unchanged 8 mm left lower lobe nodule not clearly PET avid. Additional subcentimeter pulmonary nodules. Continued follow-up is recommended. No thoracic lymphadenopathy. Transcribe Date/Time: Jun 04 2024 11:53A Dictated by: CHERRIE RODRIGUEZ MD This examination was interpreted and the report reviewed and electronically signed by: CHERRIE RODRIGUEZ MD on Jun 04 2024 12:24PM EST Thank you for allowing us to participate in the care of your patient. Should there be any questions regarding this interpretation, please call [phone]. If you are unable to reach us at the number above, please feel free to contact [facility] eRadiology at [phone]. [facility] Comprehensive metabolic 2000 panelOrdered By: Mukesh Donohue on 06-04-2024 Albumin [Mass/Vol] 4.0 g/dL 3.9 - 4.9 g/dL [facility] ALP [Catalytic activity/Vol] 101 U/L 38 - 113 U/L [facility] ALT [Catalytic activity/Vol] 13 U/L 10 - 54 U/L [facility] Anion gap [Moles/Vol] 9 mmol/L 8 - 15 mmol/L [facility] AST [Catalytic activity/Vol] 13 U/L Low 14 - 40 U/L [facility] Bilirubin [Mass/Vol] 0.3 mg/dL 0.2 - 1 .3 mg/dL [facility] Calcium [Mass/Vol] 9.8 mg/dL 8.5 - 10. 2 mg/dL [facility] Chloride [Moles/Vol] 100 mmol/L 98 - 10 7 mmol/L [facility] CO2 [Moles/Vol] 27 mmol/L 22 - 30 mmol/L [facility] Creatinine [Mass/Vol] 1.56 mg/dL High 0.73 - 1.22 mg/dL [facility] GFR/1.73 sq M.predicted among non-blacks MDRD (S/P/Bld) [Vol rate/Area] 45 mL/min/{1.73_m2} Low - PINF [facility] Comment on above: Estimated Glomerular Filtration Rate (eGFR) is calculated using the 2020 CKD-EPI creatinine equation. This equation utilizes serum creatinine, sex, and age as parameters. The creatinine assay has traceable calibration to isotope dilution-mass spectrometry. Refer to KDIGO guidelines for clinical interpretation. In patients with unstable renal function, e.g. those with acute kidney injury, the eGFR may not accurately reflect actual GFR. Glucose [Mass/Vol] 124 mg/dL High 74 - 99 mg/dL [facility] Comment on above: The [place] Diabete s Association (ADA) provides guidance for cutoff values for fasting glucose and random glucose. The ADA defines fasting as no caloric intake for at least 8 hours. Fasting plasma glucose results between 100 to 125 mg/dL indicate increased risk for diabetes (prediabetes). Fasting plasma glucose results greater than or equal to 126 mg/dL meet the criteria for diagnosis of diabetes. In the absence of unequivocal hyperglycemia, results should be confirmed by repeat testing. In a patient with classic symptoms of hyperglycemia or hyperglycemic crisis, random plasma glucose results greater than or equal to 200 mg/dL meet the criteria for diagnosis of diabetes. Reference: Standards of Medical Care in Diabetes 2016, [place] Diabetes Association. Diabetes Care. 2016.39(Suppl 1). Interpretation and review of laboratory results Abnormal [facility] Potassium [Moles/Vol] 4.8 mmol/L 3.7 - 5.1 mmol/L [facility] Protein [Mass/Vol] 7.1 g/dL 6.3 - 8.0 g/dL [facility] Sodium [Moles/Vol] 136 mmol/L 136 - 144 mmol/L [facility] Urea nitrogen [Mass/Vol] 39 mg/dL High 9 - 24 mg/dL [facility] Comprehensive metabolic 2000 panelon 06-04-2024 Albumin [Mass/Vol] 4.0 g/dL Normal 3.9-4.9 [facility] Comment on above: Order Comment: Speci men Type: BLOOD SPECIMENOrdering Facility: [facility] Address: [address] [place] [address] [place] [address] Performed By: #### 2 4323-8 ####[facility] LABCLIA [id number] [place] [address] ALP [Catalytic activity/Vol] 101 U/L Normal 38-113 [facility] Comment on above: Order Comment: Speci men Type: BLOOD SPECIMENOrdering Facility: [facility] Address: [facility] [place] [address] Performed By: #### 2 4323-8 ####[facility] LABCLIA [id number] [place] [address] ALT [Catalytic activity/Vol] 13 U/L Normal 10-54 [facility] Comment on above: Order Comment: Speci men Type: BLOOD SPECIMENOrdering Facility: [facility] Address: [address] [place] [address] Performed By: #### 2 4323-8 ####[facility] LABCLIA [id number] [place] [address] Anion gap [Moles/Vol] 9 mmol/L Normal 8-15 [facility] Comment on above: Order Comment: Speci men Type: BLOOD SPECIMENOrdering Facility: [facility] Address: [address] [place] [address] Performed By: #### 2 4323-8 ####[facility] LABCLIA [id number] [place] [address] AST [Catalytic activity/Vol] 13 U/L Low 14-40 [facility] Comment on above: Order Comment: Speci men Type: BLOOD SPECIMENOrdering Facility: [facility] Address: [address] [place] [address] Performed By: #### 2 4323-8 ####[facility] LABCLIA [id number] [place] [address] Bilirubin [Mass/Vol] 0.3 mg/dL Normal 0.2-1.3 [facility] Comment on above: Order Comment: Speci men Type: BLOOD SPECIMENOrdering Facility: [facility] Address: [address] [place] [address] Performed By: #### 2 4323-8 ####[facility] LABCLIA [id number] [place] [address] Calcium [Mass/Vol] 9.8 mg/dL Normal 8.5-10.2 [facility] Comment on above: Order Comment: Speci men Type: BLOOD SPECIMENOrdering Facility: [facility] Address: [address] [place] [address] Performed By: #### 2 4323-8 ####[facility] LABCLIA [id number] [place] [address] Chloride [Moles/Vol] 100 mmol/L Normal 98-107 [facility] Comment on above: Order Comment: Speci men Type: BLOOD SPECIMENOrdering Facility: [facility] Address: [address] [place] [address] Performed By: #### 2 4323-8 ####[facility] LABCLIA [id number] [place] [address] CO2 [Moles/Vol] 27 mmol/L Normal 22-30 [facility] Comment on above: Order Comment: Speci men Type: BLOOD SPECIMENOrdering Facility: [facility] Address: [address] [place] [address] Performed By: #### 2 4323-8 ####[facility] LABCLIA [id number] [place] [address] Creatinine [Mass/Vol] 1.56 mg/dL High 0.73-1.22 [facility] Comment on above: Order Comment: Speci men Type: BLOOD SPECIMENOrdering Facility: [facility] Address: [address] [place] [address] Performed By: #### 2 4323-8 ####[facility] LABCLIA [id number] [place] [address] Creatinine and Glomerular filtration rate.predicted panel (S/P/Bld) 45 mL/min/1.73m??? Low >=60 [facility] Comment on above: Order Comment: Lucia red Type: BLOOD SPECIMENOrdering Facility: [facility] Address: [address] [place] [address] Result Comment: Alexia mated Glomerular Filtration Rate (eGFR) is calculated using the 2020 CKD-EPI creatinine equation. This equation utilizes serum creatinine, sex, and age as parameters. The creatinine assay has traceable calibration to isotope dilution-mass spectrometry. Refer to KDIGO guidelines for clinical interpretation. In patients with unstable renal function, e.g. those with acute kidney injury, the eGFR may not accurately reflect actual GFR. Performed By: #### 2 4323-8 ####[facility] LABCLIA [id number] [place] [address] Glucose [Mass/Vol] 124 mg/dL High 74-99 [facility] Comment on above: Order Comment: Lucia red Type: BLOOD SPECIMENOrdering Facility: [facility] Address: [address] [place] [address] Result Comment: The [place] Diabetes Association (ADA) provides guidance for cutoff values for fasting glucose and random glucose. The ADA defines fasting as no caloric intake for at least 8 hours. Fasting plasma glucose results between 100 to 125 mg/dL indicate increased risk for diabetes (prediabetes). Fasting plasma glucose results greater than or equal to 126 mg/dL meet the criteria for diagnosis of diabetes. In the absence of unequivocal hyperglycemia, results should be confirmed by repeat testing. In a patient with classic symptoms of hyperglycemia or hyperglycemic crisis, random plasma glucose results greater than or equal to 200 mg/dL meet the criteria for diagnosis of diabetes. Reference: Standards of Medical Care in Diabetes 2016, [place] Diabetes Association. Diabetes Care. 2016.39(Suppl 1). Performed By: #### 2 4323-8 ####[facility] LABCLIA [id number] [place] [address] Potassium [Moles/Vol] 4.8 mmol/L Normal 3.7-5.1 [facility] Comment on above: Order Comment: Lucia red Type: BLOOD SPECIMENOrdering Facility: [facility] Address: [address] [place] [address] Performed By: #### 2 4323-8 ####[facility] LABCLIA [id number] [place] [address] Protein [Mass/Vol] 7.1 g/dL Normal 6.3-8.0 [facility] Comment on above: Order Comment: Speci men Type: BLOOD SPECIMENOrdering Facility: [facility] Address: [address] [place] [address] Performed By: #### 2 4323-8 ####[facility] LABIA [id number] [place] [address] Sodium [Moles/Vol] 136 mmol/L Normal 136-144 [facility] Comment on above: Order Comment: Speci men Type: BLOOD SPECIMENOrdering Facility: [facility] Address: [address] [place] [address] Performed By: #### 2 4323-8 ####[facility] LABIA [id number] [place] [address] Urea nitrogen [Mass/Vol] 39 mg/dL High 9-24 [facility] Comment on above: Order Comment: Speci men Type: BLOOD SPECIMENOrdering Facility: [facility] Address: [address] [place] [address] Performed By: #### 2 4323-8 ####[facility] LABIA [id number] [place] [address] No Panel Informationon 06-04 Radiology Study observation (narrative) [facility] Gregoria 04-28-2024 AZAM Telephone (OSMAN) JOLLY SIERRA ([id number]) 1945 M Date Time Provider Department 04/28/24 FAISAL DASILVA During your visit today, we recorded the following information about you: Dilcia Cabrera RN 04/28/2024 9:23 AM Signed Please sign pended labs for 3 month f/u if agreeable-will draw with CT 1 week prior Thank You! Dilcia Cabrera RN Allergies As of Date: 04/28/2024 (No Known Allergies) Date Reviewed: 03/11/2024 Reviewed by: Liane Kaba MA - Fully Assessed Reason for Visit: Orders [681] Primary Visit Diagnosis:Neoplasm of bladder [D49.4] Order(s):COMPREHENSIVE METABOLIC PANEL [SQCMP] Order #: [id number] FUTURE COMPLETE BLOOD COUNT AND DIFFERENTIAL [SQCBCDIF] Order #: [id number] FUTURE Prescriptions as of 04/28/2024 - spironolactone (ALDACTONE) 50 mg tablet Take 50 mg by mouth once daily. - psyllium seed, with sugar, (METAMUCIL, SUGAR, ORAL) Take by mouth. - ondansetron (ZOFRAN) 8 mg tablet Take 1 tablet by mouth every 8 hours as needed for nausea/vomiting. - prochlorperazine (COMPAZINE) 10 mg tablet Take 1 tablet by mouth every 6 hours as needed. - ramipril (ALTACE) 10 mg capsule Take 10 mg by mouth once daily. 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 Creatinine still slightly elevated at 1.38. eGFR 52. Would encourage continuation of fluids is much as possible. Blood sugar slightly elevated at 155. We will continue as planned. Lizzie Perez RN 03/12/2024 10:10 AM Signed notified and verbalized understanding. She will pass the information along to her . Vivian Perez RN Allergies As of Date: 03/12/2024 (No Known Allergies) Date Reviewed: 03/11/2024 Reviewed by: Liane Kaba MA - Fully Assessed Prescriptions as of 03/12/2024 - spironolactone (ALDACTONE) 50 mg tablet Take 50 mg by mouth once daily. - iv contrast (will be provided with radiology test) CT Chest ABD/PEL-Inject, intravenously, once for 1 dose.No IV access, insert saline lock prior to the beginning of sedation, infusion, injection of imaging exam. Discontinue saline lock post exam. If Pt. has a central line or IVAD, may access for administration according to line specific nursing protocol. Once exam is complete flush line and de-access according to line specific nursing protocol in the CT contrast administration guidelines link. - enteric contrast (will be provided with radiology test) For CT CHESTABD/PEL W IVCON Routine order Administer, As Directed One Time Only, via Oral, Rectal, both Oral and Rectal, Enteric Tube, Stoma or Indwelling Catheter, Enteric Contrast as designated per enteric contrast guidelines - psyllium seed, with sugar, (METAMUCIL, SUGAR, ORAL) Take by mouth. - ondansetron (ZOFRAN) 8 mg tablet Take 1 tablet by mouth every 8 hours as needed for nausea/vomiting. - prochlorperazine (COMPAZINE) 10 mg tablet Take 1 tablet by mouth every 6 hours as needed. - ramipril (ALTACE) 10 mg capsule Take 10 mg by mouth once daily. 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 Encounter Status:Closed by LIZZIE PEREZ on 03/12/24 Normal [facility] CBC W Auto Differential pane l (Bld)on 03-11-2024 Basophils (Bld) [#/Vol] 10*3/uL Normal <0.11 [facility] Comment on above: Order Comment: Speci men Type: BLOOD SPECIMEN [facility] Address: [address] [place] [address] Performed By: #### 2 4323-8 #### [facility] CLIA [id number] [address] [place] [address] Basophils/100 WBC (Bld) 0.2 % Normal [facility] Comment on above: Order Comment: Speci men Type: BLOOD SPECIMEN [facility] Address: [address] [place] [address] Performed By: #### 2 4323-8 #### [facility] CLIA [id number] [address] [place] [address] Differential cell count method Nom (Bld) Auto Normal [facility] Comment on above: Order Comment: Speci men Type: BLOOD SPECIMEN [facility] Address: [address] [place] [address] Performed By: #### 2 4323-8 #### [facility] CLIA [id number] [address] [place] [address] Eosinophils (Bld) [#/Vol] 0.05 10*3/uL Normal <0.46 [facility] Comment on above: Order Comment: Speci men Type: BLOOD SPECIMEN [facility] Address: [facility] [place] [address] Performed By: #### 2 4323-8 #### [facility] CLIA [id number] [address] [place] [address] Eosinophils/100 WBC (Bld) 0.9 % Normal [facility] Comment on above: Order Comment: Speci men Type: BLOOD SPECIMEN [facility] Address: [address] [place] [address] Performed By: #### 2 4323-8 #### [facility] CLIA [id number] [address] [place] [address] Erythrocyte distribution width (RBC) [Ratio] 13.2 % Normal 11.5-15.0 [facility] Comment on above: Order Comment: Speci men Type: BLOOD SPECIMEN [facility] Address: [address] [place] [address] Performed By: #### 2 4323-8 #### [facility] CLIA [id number] [address] [place] [address] Hematocrit (Bld) [Volume fraction] 33.1 % Low 39.0-51.0 [facility] Comment on above: Order Comment: Speci men Type: BLOOD SPECIMEN [facility] Address: [address] [place] [address] Performed By: #### 2 4323-8 #### [facility] CLIA [id number] [address] [place] [address] Hemoglobin (Bld) [Mass/Vol] 10.7 g/dL Low 13.0-17.0 [facility] Comment on above: Order Comment: Speci men Type: BLOOD SPECIMEN [facility] Address: [address] [place] [address] Performed By: #### 2 4323-8 #### [facility] CLIA [id number] [address] [place] [address] Immature granulocytes (Bld) [#/Vol] 0.07 10*3/uL Normal <0.10 [facility] Comment on above: Order Comment: Speci men Type: BLOOD SPECIMEN [facility] Address: [address] [place] [address] Performed By: #### 2 4323-8 #### [facility] CLIA [id number] [address] [place] [address] Immature granulocytes/100 WBC (Bld) 1.2 % Normal [facility] Comment on above: Order Comment: Speci men Type: BLOOD SPECIMEN [facility] Address: [address] [place] [address] Performed By: #### 2 4323-8 #### [facility] CLIA [id number] [address] [place] [address] Lymphocytes (Bld) [#/Vol] 1.58 10*3/uL Normal 1.00-4.00 [facility] Comment on above: Order Comment: Speci men Type: BLOOD SPECIMEN [facility] Address: [address] [place] [address] Performed By: #### 2 4323-8 #### [facility] CLIA [id number] [address] [place] [address] Lymphocytes/100 WBC (Bld) 27.1 % Normal [facility] Comment on above: Order Comment: Speci men Type: BLOOD SPECIMEN [facility] Address: [address] [place] [address] Performed By: #### 2 4323-8 #### [facility] CLIA [id number] [address] [place] [address] MCH (RBC) [Entitic mass] 32.3 pg Normal 26.0-34.0 [facility] Comment on above: Order Comment: Speci men Type: BLOOD SPECIMEN [facility] Address: [address] [place] [address] Performed By: #### 2 4323-8 #### [facility] CLIA [id number] [address] [place] [address]006 MCHC (RBC) [Mass/Vol] 32.3 g/dL Normal 30.5-36.0 [facility] Comment on above: Order Comment: Speci men Type: BLOOD SPECIMEN [facility] Address: [address] [place] [address] Performed By: #### 2 4323-8 #### [facility] CLIA [id number] [address] [place] [address]53 MCV (RBC) [Entitic vol] 100.0 fL Normal 80.0-100.0 [facility] Comment on above: Order Comment: Speci men Type: BLOOD SPECIMEN [facility] Address: [address] [place] [address] Performed By: #### 2 4323-8 #### [facility] CLIA [id number] [address] [place] [address]169 Monocytes (Bld) [#/Vol] 0.54 10*3/uL Normal <0.87 [facility] Comment on above: Order Comment: Speci men Type: BLOOD SPECIMEN [facility] Address: [address] [place] [address] Performed By: #### 2 4323-8 #### [facility] CLIA [id number] [address] [place] [address] 94884 Monocytes/100 WBC (Bld) 9.2 % Normal [facility] Comment on above: Order Comment: Speci men Type: BLOOD SPECIMEN [facility] Address: [address] [place] [address] Performed By: #### 2 4323-8 #### [facility] CLIA [id number] [address] [place] [address]3354 Neutrophils (Bld) [#/Vol] 3.59 10*3/uL Normal 1.45-7.50 [facility] Comment on above: Order Comment: Speci men Type: BLOOD SPECIMEN [facility] Address: [address] [place] [address] Performed By: #### 2 4323-8 #### [facility] CLIA [id number] [address] [place] [address] 17098 Neutrophils/100 WBC (Bld) 61.4 % Normal [facility] Comment on above: Order Comment: Speci men Type: BLOOD SPECIMEN [facility] Address: [address] [place] [id number] Performed By: #### 2 4323-8 #### [facility] CLIA [id number] [address] [place] [address] 23644 Nucleated RBC (Bld) [#/Vol] 10*3/uL Normal <0.01 [facility] Comment on above: Order Comment: Speci men Type: BLOOD SPECIMEN [facility] Address: [address] [place] [address] Performed By: #### 2 4323-8 #### [facility] CLIA [id number] [address] [place] [address]50 Nucleated RBC/100 WBC (Bld) [Ratio] 0.0 /100 WBC Normal [facility] Comment on above: Order Comment: Speci men Type: BLOOD SPECIMEN [facility] Address: [address] [place] [address] Performed By: #### 2 4323-8 #### [facility] CLIA [id number] [address] [place] [address] 65205 Platelet mean volume (Bld) [Entitic vol] 10.6 fL Normal 9.0-12.7 [facility] Comment on above: Order Comment: Speci men Type: BLOOD SPECIMEN [facility] Address: [address] [place] [id number] Performed By: #### 2 4323-8 #### [facility] CLIA [id number] [address] [place] [address] 63066 Platelets (Bld) [#/Vol] 157 10*3/uL Normal 150-400 [facility] Comment on above: Order Comment: Speci men Type: BLOOD SPECIMEN [facility]ing Facility[facility] Address: [address] [place], [place] [address] Performed By: #### 2 4323-8 #### [facility] CLIA [id number] [address] [place] [address] RBC (Bld) [#/Vol] 3.31 10*6/uL Low 4.20-6.00 [facility] Comment on above: Order Comment: Speci men Type: BLOOD SPECIMEN [facility]ing Facility[facility] Address: [address] [place] [address] Performed By: #### 2 4323-8 #### [facility] CLIA [id number] [address] [place] [address] WBC (Bld) [#/Vol] 5.84 10*3/uL Normal 3.70-11.00 [facility] Comment on above: Order Comment: Speci men Type: BLOOD SPECIMEN [facility]ing Facility[facility] Address: [address] [place] [address] Performed By: #### 2 4323-8 #### [facility] CLIA [id number] [address] [place] [address] CNOVSPon 03-11-2024 CNOVS Visit (SP) Office ([place]) JOLLY SIERRA ([id number]) 1945 M Date Time Provider Department 03/11/24 3:00 PM FAISAL DASILVA During your visit today, we recorded the following information about you: Temperature Pulse Respiration Blood pressure 97.1 degrees 69/minute 18/minute 148/78 Weight 85.2 kg Faisal Dasilva MD 03/12/2024 6:32 AM Signed PATIENT NAME: Jolly Sierra DATE: 03/11/2024 PRIMARY CARE PHYSICIAN: Jose J Donaldson Jr, DO OTHER PHYSICIANS: Dr. Jason Will, Dr. Antonio Gary Portions of this encounter note have been copied from the note from 02/12/2024 and has been updated where appropriate, and reflect my current medical decision making from today. CC: This is a 78 year old male with a history of localized bladder cancer, seen for scheduled follow-up. INTERM HISTORY: Patient's last visit here he underwent a follow-up cystoscopy 02/18/2024. His bladder revealed several papular erythematous areas, but biopsies all benign. He has had no other medical changes. Energy and appetite are returned to baseline after completing chemotherapy. He has mild numbness in his right foot, otherwise no adverse effects. He still is recurrent undergo self-catheterization several times per day. He denies any hematuria or dysuria. MEDICATIONS: Current Outpatient Medications Medication Sig spironolactone (ALDACTONE) 50 mg tablet Take 50 mg by mouth once daily. psyllium seed, with sugar, (METAMUCIL, SUGAR, ORAL) Take by mouth. ramipril (ALTACE) 10 mg capsule Take 10 mg by mouth once daily. ondansetron (ZOFRAN) 8 mg tablet Take 1 tablet by mouth every 8 hours as needed for nausea/vomiting. prochlorperazine (COMPAZINE) 10 mg tablet Take 1 tablet by mouth every 6 hours as needed. No current facility-administered medications for this visit. ALLERGIES: ALLERGIES No Known Allergies PAST MEDICAL HISTORY: PAST MEDICAL HISTORY Diagnosis Date HLD (hyperlipidemia) HTN (hypertension) Neurogenic bladder PAST SURGICAL HISTORY: PAST SURGICAL HISTORY Procedure Laterality Date CYSTOSCOPY PAST SURGICAL HISTORY OF 2006 bladder surgery PAST SURGICAL HISTORY OF Robotic Laproscopic Cystoplasty bladder augmentation with stent FAMILY HISTORY: FAMILY HISTORY Problem Relation Age of Onset Heart disease Father SOCIAL HISTORY: Social History Tobacco Use Smoking status: Never Passive exposure: Never Smokeless tobacco: Never Vaping Use Vaping status: Never Used Substance Use Topics Alcohol use: Not Currently Drug use: Never COMPLETE REVIEW OF SYSTEMS: CONSTITUTION: Negative for pain, fatigue, weight loss, or appetite loss. EENT: Negative for mouth soreness, antibiotics use, epistaxis, visual problems, neck or facial swelling, fever/chills, bleeding gums, or hearing loss. CV: +mild L ankle edema. Negative for calf swelling, palpitations, or chest pain. RESPIRATORY: Negative for cough, SOB, hemoptysis, or wheezing. GI: +mild nausea. Negative for vomiting, heartburn, vomiting blood, dysphasia, diarrhea, blood in stool, constipation, early satiety, PICA, vegetarian, poor nutrition, abdominal fullness, or abdominal pain. NEUROLOGICAL: Negative for numbness/tingling, dizziness, gait disturbance, headache, speech disturbance, tremor, hemiparesis/sensory loss, or change in mental status. MUSCULOSKELETAL: Negative for joint pain, joint swelling, or proximal muscle weakness. SKIN: Negative for hair loss, bruising, nail changes, rash, itching, pallor, or jaundice. ENDO/URO: Negative for hot flashes, cold or heat intolerance, urinary frequency, urinary hesitancy, menorrhagia, or hematuria. PSYCH: Negative for anxiety, depression, or other. PHYSICAL EXAM: BP 148/78 Pulse 69 Temp 36.2 ?C (97.1 ?F) (Temporal) Resp 18 Wt 85.2 kg (187 lb 13.3 oz) SpO2 99% BMI 26.95 kg/m? General: Alert and oriented, no distress, pleasant and cooperative. Heart: Regular, normal S1 and S2, no murmurs, rubs, or gallops Lungs: Clear to auscultation bilaterally Abdomen: Benign Extremities: Feet/ankles without edema, right medial antecub with small area of swelling, no redness or warmth PATHOLOGY: 02/18/2024 Cystoscopy bladder mucosa with mixed acute and chronic inflammation and reactive changes. No muscularis propria identified 09/06/2023 Robotic bladder diverticulectomy and right pelvic lymph node dissection. A. Urinary bladder, neck of diverticulum, excision: - Benign bladder mucosa and muscularis propria. B. Lymph nodes, right pelvic, regional resection: - Two lymph nodes, negative for malignancy (0/2). C. 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 - Margins are negative for tumor. LABS: Hemoglobin (g/dL) Da (more content not included)... Normal [facility] metabolic 2000 panelon 03-11-2024 Albumin [Mass/Vol] 3.9 g/dL Normal 3.9-4.9 [facility] Comment on above: Order Comment: Speci men Type: BLOOD SPECIMENOrdering Facility: [facility] Address: [address] [place] [address] Performed By: #### 2 4323-8 ####[facility] [id number] [place] [address] ALP [Catalytic activity/Vol] 90 U/L Normal 38-113 [facility] Comment on above: Order Comment: Speci men Type: BLOOD SPECIMENOrdering Facility: [facility] Address: [address] [place] [address] Performed By: #### 2 4323-8 ####[facility] [id number] [place] [address] ALT [Catalytic activity/Vol] 10 U/L Normal 10-54 [facility] Comment on above: Order Comment: Speci men Type: BLOOD SPECIMENOrdering Facility: [facility] Address: [address] [place] [address] Performed By: #### 2 4323-8 ####[facility] [id number] [place] [address] Anion gap [Moles/Vol] 12 mmol/L Normal 8-15 [facility] Comment on above: Order Comment: Speci men Type: BLOOD SPECIMENOrdering Facility: [facility] Address: [address] [place] [address] Performed By: #### 2 4323-8 ####[facility] [id number] [place] [address] AST [Catalytic activity/Vol] 13 U/L Low 14-40 [facility] Comment on above: Order Comment: Speci men Type: BLOOD SPECIMENOrdering Facility: [facility] Address: [address] [place] [address] Performed By: #### 2 4323-8 ####[facility] [id number] [place] [address] Bilirubin [Mass/Vol] 0.2 mg/dL Normal 0.2-1.3 [facility] Comment on above: Order Comment: Speci men Type: BLOOD SPECIMENOrdering Facility: [facility] Address: [address] [place] [address] Performed By: #### 2 4323-8 ####[facility] [id number] [place] [address] Calcium [Mass/Vol] 9.3 mg/dL Normal 8.5-10.2 [facility] Comment on above: Order Comment: Speci men Type: BLOOD SPECIMENOrdering Facility: [facility] Address: [address] [place] [address] Performed By: #### 2 4323-8 ####[facility] [id number] [place] [address] Chloride [Moles/Vol] 101 mmol/L Normal 98-107 [facility] Comment on above: Order Comment: Speci men Type: BLOOD SPECIMENOrdering Facility: [facility] Address: [address] [place] [address] Performed By: #### 2 4323-8 ####[facility] [id number] [place] [address] CO2 [Moles/Vol] 27 mmol/L Normal 22-30 [facility] Comment on above: Order Comment: Speci men Type: BLOOD SPECIMENOrdering Facility: [facility] Address: [address] [place] [address] Performed By: #### 2 4323-8 ####[facility] [id number] [place] [address] Creatinine [Mass/Vol] 1.38 mg/dL High 0.73-1.22 [facility] Comment on above: Order Comment: Speci men Type: BLOOD SPECIMENOrdering Facility: [facility] Address: [address] [place], [place] [address] Performed By: #### 2 4323-8 ####[facility] [id number] [place] [address] Creatinine and Glomerular filtration rate.predicted panel (S/P/Bld) 52 mL/min/1.73m??? Low >=60 [facility] Comment on above: Order Comment: Lucia men Type: BLOOD SPECIMENOrdering Facility: [facility] Address: [address] [place] [address] Result Comment: Alexia mated Glomerular Filtration Rate (eGFR) is calculated using the 2020 CKD-EPI creatinine equation. This equation utilizes serum creatinine, sex, and age as parameters. The creatinine assay has traceable calibration to isotope dilution-mass spectrometry. Refer to KDIGO guidelines for clinical interpretation. In patients with unstable renal function, e.g. those with acute kidney injury, the eGFR may not accurately reflect actual GFR. Performed By: #### 2 4323-8 ####[facility] [id number] [place] [address] Glucose [Mass/Vol] 155 mg/dL High 74-99 [facility] Comment on above: Order Comment: Lucia red Type: BLOOD SPECIMENOrdering Facility: [facility] Address: [address] [place], [place] [address] Result Comment: The [place] Diabetes Association (ADA) provides guidance for cutoff values for fasting glucose and random glucose. The ADA defines fasting as no caloric intake for at least 8 hours. Fasting plasma glucose results between 100 to 125 mg/dL indicate increased risk for diabetes (prediabetes). Fasting plasma glucose results greater than or equal to 126 mg/dL meet the criteria for diagnosis of diabetes. In the absence of unequivocal hyperglycemia, results should be confirmed by repeat testing. In a patient with classic symptoms of hyperglycemia or hyperglycemic crisis, random plasma glucose results greater than or equal to 200 mg/dL meet the criteria for diagnosis of diabetes. Reference: Standards of Medical Care in Diabetes 2016, [place] Diabetes Association. Diabetes Care. 2016.39(Suppl 1). Performed By: #### 2 4323-8 ####[facility] [id number] [place] [address] Potassium [Moles/Vol] 4.7 mmol/L Normal 3.7-5.1 [facility] Comment on above: Order Comment: Speci men Type: BLOOD SPECIMENOrdering Facility: [facility] Address: [address] [place] [address] Performed By: #### 2 4323-8 ####[facility] [id number] [place] [address] Protein [Mass/Vol] 7.2 g/dL Normal 6.3-8.0 [facility] Comment on above: Order Comment: Speci men Type: BLOOD SPECIMENOrdering Facility: [facility] Address: [address] [place] [address] Performed By: #### 2 4323-8 ####[facility]IA [id number] [place] [address] Sodium [Moles/Vol] 140 mmol/L Normal 136-144 [facility] Comment on above: Order Comment: Speci men Type: BLOOD SPECIMENOrdering Facility: [facility] Address: [address] [place] [address] Performed By: #### 2 4323-8 ####[facility] [id number] [place] [address] Urea nitrogen [Mass/Vol] 29 mg/dL High 9-24 [facility] Comment on above: Order Comment: Speci men Type: BLOOD SPECIMENOrdering Facility: [facility] Address: [address] [place] [address] Performed By: #### 2 4323-8 ####[facility] [id number] [place] [address] Gregoria 02-19-2024 AZAM Telephone ([facility]) JOLLY SIERRA ([id number]) 1945 M Date Time Provider Department 02/19/24 MAHI HANSEN URChristiana During your visit today, we recorded the following information about you: Mahi Hansen RN 02/19/2024 10:24 AM Signed Patient had Transurethral resection of bladder tumor -small - 1cm by Dr. Will on 02/18/2024 February 19, 2024 10:19 AM Patient called for post op follow up assessment. Reports he is doing well. Pain: Patient rates pain 0 on a scale of 0-10. 0 being no pain and 10 being worst pain imaginable. Diet: Patient is able tolerate fluids and normal diet. Voiding: Patient is able to void and CIC without difficulty clear yellow Medication: Denies questions or concerns about medication. Post op restrictions reviewed with patient including - reviewed signs and symptoms to notify office including signs of infection, fever, heavy bleeding. - he is aware of post op appointment: TBD Patient verbalized understanding and denies further questions at this time. Understands to call the office with further concerns/questions. Mahi Hansen RN Allergies As of Date: 02/19/2024 (No Known Allergies) Date Reviewed: 02/18/2024 Reviewed by: Joce Fox RN - Fully Assessed Reason for Visit: Surgical Followup [104] Prescriptions as of 02/19/2024 - psyllium seed, with sugar, (METAMUCIL, SUGAR, ORAL) Take by mouth. - ondansetron (ZOFRAN) 8 mg tablet Take 1 tablet by mouth every 8 hours as needed for nausea/vomiting. - prochlorperazine (COMPAZINE) 10 mg tablet Take 1 tablet by mouth every 6 hours as needed. - ramipril (ALTACE) 10 mg capsule Take 10 mg by mouth once daily. 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 Urinary bladder,biopsy: - Bladder mucosa with mixed acute and chronic inflammation and reactive changes. - No muscularis propria identified. called and gave path recommend FU cysto in 6 mo MD Mari Herr Matthew 02/21/2024 11:30 AM Signed I called Will and I left a message to get his follow up cysto scheduled. Allergies As of Date: 02/19/2024 (No Known Allergies) Date Reviewed: 02/18/2024 Reviewed by: Joce Fox, RN - Fully Assessed Reason for Visit: Results [95] Prescriptions as of 02/21/2024 - psyllium seed, with sugar, (METAMUCIL, SUGAR, ORAL) Take by mouth. - ondansetron (ZOFRAN) 8 mg tablet Take 1 tablet by mouth every 8 hours as needed for nausea/vomiting. - prochlorperazine (COMPAZINE) 10 mg tablet Take 1 tablet by mouth every 6 hours as needed. - ramipril (ALTACE) 10 mg capsule Take 10 mg by mouth once daily. 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 Encounter Status:Closed by JASON WILL on 02/19/24 [facility] ANES POSTPROC EVALon 024 ANES POSTPROC EVAL HNO ID: [id number] Author: DARREN REYES DO Service: Anesthesiology Author Type: Anesthesiologist Type: Anesthesia Postprocedure Evaluation Filed: 02/18/2024 11:13 Note Text: POST ANESTHESIA EVALUATION NOTE : 1945 Procedure Summary Date: 02/18/24 Room / Location: OR02 / [facility] Anesthesia Start: 932 Anesthesia Stop: 1015 Procedure: CYSTOURETHROSCOPY W/FULGURATION AND/OR RESECTION MEDIUM BLADDER TUMOR(S) 2.0 - 5.0 CM W/SALINE BIPOLAR (Bladder) Diagnosis: Neoplasm of bladder (Neoplasm of bladder [D49.4]) Surgeons: Jason Will MD Responsible Provider: Darren Reyes DO Anesthesia Type: general ASA Status: 3 Anesthesia Type: general Airway Type: LMA Last Vitals Vitals Value Taken Time BP 159/71 02/18/24 1045 Temp 36.3 ?C (97.3 ?F) 02/18/24 1045 HR SpO2 62 02/18/24 1058 Resp 16 02/18/24 1057 SpO2 100 % 02/18/24 1058 Vitals shown include unfiled device data. Post Anesthesia Patient Status Patient Evaluation: PACU. PACU/ICU Patient Condition: stable. Anticipated Disposition: phase 2 then home. Neurological Status: aware and responsive. Pulmonary Status: breathing comfortably on room air Airway Control: returned to baseline unsupported. Cardiovascular Status: stable. Pain Management: clinically adequate Postoperative Hydration: acceptable. Intraoperative Events: no significant anesthesia events Post Operative Nausea/Vomiting Status: no significant post operative nausea or vomiting Recommendation: continue current plan of care. Anesthesia Observations No Documentation SIGNATURE: Darren Reyes DO PATIENT NAME: Jolly Sierra DATE: February 18, 2024 TIME: 11:13 AM CSN: [id number] [facility] ANES PRE-OPon 02-18-2024 ANES PRE-OP HNO ID: [id number] Author: DARREN REYES DO Service: Anesthesiology Author Type: Anesthesiologist Type: Anesthesia Preprocedure Evaluation Filed: 02/18/2024 09:10 Note Text: ANESTHESIOLOGY DAY OF SURGERY NOTE : 1945 Procedure Information Date/Time: 02/18/24944 Procedure: CYSTOURETHROSCOPY W/FULGURATION AND/OR RESECTION MEDIUM BLADDER TUMOR(S) 2.0 - 5.0 CM W/SALINE BIPOLAR (Bladder) Location: [facility] OR02 / [facility] Surgeons: Jason Will MD Estimated body mass index is 26.86 kg/m? as calculated from the following: Height as of 02/12/24: 177.8 cm (5' 10 ). Weight as of 02/12/24: 84.9 kg (187 lb 2.7 oz). Most recent hematocrit and potassium results: Hematocrit 30.4 02/12/2024 Potassium 4.8 02/12/2024 Relevant Problems ANESTHESIA (within normal limits) CARDIO (+) HTN (hypertension) Nephrology (+) Bladder diverticulum (+) Neurogenic bladder Oncology (+) Malignant neoplasm of overlapping sites of bladder (HCC) 09/06/23 Airway Patient position: sniffing Method: asleep Cricoid Pressure: Yes Difficult Mask: No Final Airway Details Final airway type: endotracheal airway Final Endotracheal Airway: ETT Cuffed: yes Successful intubation technique: direct laryngoscopy Devices used: intubating stylet Endotracheal tube insertion site: oral Blade: Jennifer Blade size: #4 ETT size (mm): 7.5 Measurement (cm): 23 Placement verified by: capnometry Cormack-Lehane Classification: grade IIb - view of arytenoids or posterior of glottis only Number of attempts at approach: 1 Airway trauma: None. Airway not difficult I - PHYSICAL EVALUATION AIRWAY Patient intubated: No. Tracheostomy tube not present Mallampati: III. TM distance: >3 FB. Neck ROM: full ROM without neurological symptoms. Mouth opening: adequate. Short neck: no. Thick neck: no Polk present: no Lip Bite Test: III Microretrognathia/Micr onagthia/Recessed Chin: Yes DENTAL Dental findings: teeth intact. II - ANESTHESIA PLAN ASA Score: 3 Anesthetic Plan: general Airway type: LMA The patient is not a current smoker. NPO Status: adequate Beta Koko Administration of chronic beta koko medication not planned. Monitoring Plan Monitoring plan: standard ASA. Post Procedure Analgesic Plan Postoperative analgesic plan: parenteral or oral opioids, multimodal analgesia and per surgical service. Informed Consent Anesthetic risks, benefits, alternatives, personnel and consent discussed: yes. Patient / Responsible Green Party agrees to proceed: yes Patient / Surrogate agrees to blood products: Yes Significant changes in the patient condition since the History and Physical, not otherwise documented in primary service progress note: no. Potential Anesthesia issues that may suggest increased risk of complications or contraindication to planned procedure: none. Discussed the possibility of lip / dental damage: yes Vitals Value Taken Time BP 163/71 02/18/24852 Pulse 73 02/18/24852 Resp 18 02/18/24852 Temp 35.9 ?C (96.6 ?F) 02/18/24852 SpO2 100 % 02/18/24 08 Facility-Administered Medications as of 02/18/2024 Medication Dose Route Frequency lidocaine (PF) 10 mg/mL (1 %) 1-2 mg injection (XYLOCAINE) 0.1-0.2 mL INTRADERMAL PRN NaCl 0.9% iv flush bag 20 mL INTRAVENOUS PRN ceFAZolin iv piggyback 2 g in D5W (iso-osmotic) 100 mL (ANCEF) 2 g INTRAVENOUS Pre-Op Once Outpatient Medications as of 02/18/2024 Medication Sig ondansetron (ZOFRAN) 8 mg tablet Take 1 tablet by mouth every 8 hours as needed for nausea/vomiting. prochlorperazine (COMPAZINE) 10 mg tablet Take 1 tablet by mouth every 6 hours as needed. ramipril (ALTACE) 10 mg capsule Take 10 mg by mouth once daily. I have interviewed and examined the patient. I have reviewed the medical record and/or the pre-anesthesia evaluation, pertinent labs, and test results. This contains updated information obtained within 48 hours of Surgery/Procedure. SIGNATURE: Darren Reyes DO PATIENT NAME: Jolly Sierra DATE: February 18, 2024 TIME: 9:09 AM CSN: [id number] [facility] NURSING PROGon 02-18-2024 NURSING PROG HNO ID: [id number] Author: RACIEL BENJAMIN RN Service: Nursing Author Type: Registered Nurse Type: Nursing Progress Note Filed: 02/18/2024 08:41 Note Text: READINESS TO LEARN COGNITIVE ABILITY: Alert and oriented MOTIVATION TO LEARN: Eager Interested FAMILY SUPPORT: None - Unavailable/disinteres miley INSTRUCTION PROVIDED TO: Patient PATIENT LEARNS BEST BY: Verbal Instruction FACTORS AFFECTING LEARNING: None PHYSICAL LIMITATIONS AFFECTING LEARNING: None LEARNING RESPONSE DIAGNOSIS: ADULT: Well Adult PATIENT/FAMILY RESPONSE: Verbalizes understanding of: PRE-OPERATIVE INSTRUCTIONS-Correct action to take to follow pre-operative instructions PRE-PROCEDURE INSTRUCTIONS-Correct action to take to follow pre-procedure instructions METHOD OF INSTRUCTION: Verbal instruction FOLLOW-UP PLAN: Patient instructed to call with any further issues INSTRUCTIONAL AIDS USED: NA SUPPLEMENTAL MATERIAL PROVIDED TO PATIENT: None REFERRAL (RECOMMENDATION): None Electronically Signed By: Raciel Benjamin [facility] OPERATIVE NOon 02-18-2024 OPERATIVE NO HNO ID: [id number] Author: JASON WILL MD Service: Urology Author Type: Physician Type: Operative Report Filed: 02/18/2024 10:12 Note Text: OPERATIVE/PROCEDURE REPORT LOG ID: [id number] Surgery/Procedure Date: 02/18/2024 Incision/Procedure Start Time: 9:50 AM Incision Close/Procedure End Time: 10:01 AM Surgeon(s)/Procedurali st(s) and Nsh Teacher(s): Surgeons and Role: * Jason Will MD - Primary No Additional Staff Procedure(s): Transurethral resection of bladder tumor -small - 1cm Anesthesia: General Indications: 78 year old male with history of bladder cancer and a bladder diverticulum receiving adjuvant chemotherapy with surveillance cystoscopy which showed some erythema.. After discussion of risks, benefits, complications, and alternatives, patient elected to proceed with cystoscopy bladder biopsy possible TURBT. Operative Findings: Several areas of erythema unclear if inflammatory versus malignant. Anterior bladder wall, left lateral wall, posterior bladder wall and right lateral wall. All areas between 1 to 3 cm in size. Biopsies taken in 4 areas as described above. Remaining erythema was fulgurated. Procedure Details: Patient was brought to the operating room, and multidisciplinary surgical huddle confirmed the correct patient, operative plan, perioperative antibiotics, pertinent medical history, drug allergies, and necessary equipment. General anesthesia was induced and perioperative antibiotics Ancef 2 g IV were administered. Patient was placed in dorsolithotomy position, prepped, and draped in the usual sterile fashion. A 22-1/2 Pashto cystoscope was advanced through the urethra into the bladder. Newby cystoscopy was performed with the 70 and 30 degree lenses. Findings are dictated above. Erythematous areas were resected using the cup biopsy in 4 areas as described above. We then used a Bugbee electrode to fulgurate the base. Tumor chips were sent to pathology. Final Spectrum revealed excellent hemostasis. Scope was removed without difficulty. The patient was awakened from anesthesia, extubated in the operating room, and taken to the recovery room in stable condition. Pre-Op/Pre-Procedure Diagnosis: History of bladder cancer Post-Op/Post-Procedure Diagnosis: Bladder neoplasm Estimated Blood Loss: 5 cc Specimens: Bladder neoplasm Implantable Devices: None Drains: None Complications: None Accidental Punctures/Lacerations: None SURGEON: Jason Will MD I performed the entire procedure without assistance. SIGNATURE: Jason Will MD PATIENT NAME: Jolly Sierra DATE: February 18, 2024 TIME: 10:07 AM PAGER/CONTACT #: [facility] PT EDon 02-18-2024 PT ED HNO ID: [id number] Author: JOCE FOX RN Service: ? Author Type: Registered Nurse Type: Patient Education Filed: 02/18/2024 11:36 Note Text: PATIENT EDUCATION TOPIC: PROCEDURE / SURGERY: Post-op Teaching: Med Administration, Symptom Management, and Wound Care PATIENT NAME: Jolly Sierra PATIENT LOCATION: [facility] OR POOL/[facility] OR POOL READINESS TO LEARN COGNITIVE ABILITY: Alert and oriented MOTIVATION TO LEARN: Eager FAMILY SUPPORT: High - Very involved in pt care INSTRUCTION PROVIDED TO: Patient and Family member PATIENT LEARNS BEST BY: Individual Instruction FACTORS AFFECTING LEARNING: None PHYSICAL LIMITATIONS AFFECTING LEARNING: None LEARNING RESPONSE DIAGNOSIS: ADULT: see chart PATIENT/FAMILY RESPONSE: Verbalizes understanding of: POST-OPERATIVE INSTRUCTIONS-Correct actions to take to reduce postoperative complications POST-PROCEDURE INSTRUCTIONS-Correct actions to take to reduce post procedure complications METHOD OF INSTRUCTION: Individual instruction FOLLOW-UP PLAN: Patient instructed to call with any further issues INSTRUCTIONAL AIDS USED: NA SUPPLEMENTAL MATERIAL PROVIDED TO PATIENT: None REFERRAL (RECOMMENDATION): None Electronically Signed By: Joce Fox [facility] SURGICAL PATHOLOGYon 024 CASE REPORT [facility] Comment on above: Order Comment: Speci men Type: TISSUE SPECIMEN [facility] Facility[facility] Address: [address] [place] [address] Result Comment: Surg ical Pathology Report Case: [id number] Authorizing Provider: Jason Will MD Collected: 02/18/2024 09:53 AM Ordering Location: [facility] Received: 02/18/2024 11:36 AM Operating Room Pathologist: Leia Warren MD Specimen: Bladder, Biopsy, bladder neoplasm Performed By: #### S #### [facility] CLIA [id number] [address] [place] [address] OF [facility] CLINICAL HISTORY [facility] Comment on above: Order Comment: Speci men Type: TISSUE SPECIMEN [facility]ing [facility] Address: [address] [place] [address] Result Comment: Pre- op diagnosis: Neoplasm of bladder [D49.4] Performed By: #### S #### [facility] CLIA [id number] [address] [place] [address] FINAL DIAGNOSIS [facility] Comment on above: Order Comment: Speci men Type: TISSUE SPECIMEN [facility]ing [facility] Address: [address] [place] [address] Result Comment: A. U rinary bladder,biopsy: - Bladder mucosa with mixed acute and chronic inflammation and reactive changes. - No muscularis propria identified. Performed By: #### S #### [facility] CLIA [id number] [address] [place] [address] OF [facility]FORM[facility] Comment on above: Order Comment: Speci men Type: TISSUE SPECIMEN [facility] Address: [address] [place] [address] Result Comment: Diag nostic interpretation performed at [place] [address] CLIA# [id number] Rehabilitation Team Lead: Gordon Sorto M.D. Performed By: #### S #### [facility] CLIA [id number] [address] [place] [address] STATES OF [place] GROSS DESCRIPTION Normal [facility] Comment on above: Order Comment: Speci men Type: TISSUE SPECIMEN [facility] Address: [address] [place] [address] Result Comment: Chloe zepeda, Biopsy Received in formalin are multiple pieces of man and man-brown, rubbery tissue aggregating to 0.6 x 0.5 x 0.2 cm. Totally submitted in one cassette. JC February 18, 2024 3:11 [place] [address] Performed By: #### S #### [facility] CLIA [id number] [address] [place] [address] [place] CBC W Auto Differential pane l (Bld)on 02-12-2024 Basophils (Bld) [#/Vol] 0.03 10*3/uL [facility] Basophils/100 WBC (Bld) 0.4 % [facility] Differential cell count method Nom (Bld) Auto [facility] Eosinophils (Bld) [#/Vol] 0.03 10*3/uL [facility] Eosinophils/100 WBC (Bld) 0.4 % [facility] Erythrocyte distribution width (RBC) [Ratio] 15.8 % High 11.5 - 15.0 % [facility] Hematocrit (Bld) [Volume fraction] 30.4 % Low 39.0 - 51.0 % [facility] Hemoglobin (Bld) [Mass/Vol] 9.8 g/dL Low 13.0 - 17.0 g/dL [facility] Immature granulocytes (Bld) [#/Vol] 0.05 10*3/uL [facility] Immature granulocytes/100 WBC (Bld) 0.7 % [facility] Interpretation and review of laboratory results Abnormal [facility] Lymphocytes (Bld) [#/Vol] 1.50 10*3/uL [facility] Lymphocytes/100 WBC (Bld) 20.7 % [facility] MCH (RBC) [Entitic mass] 32.1 pg 26.0 - 34.0 pg [facility] MCHC (RBC) [Mass/Vol] 32.2 g/dL 30.5 - 36.0 g/dL [facility] MCV (RBC) [Entitic vol] 99.7 fL 80.0 - 100.0 fL [facility] Monocytes (Bld) [#/Vol] 0.71 10*3/uL [facility] Monocytes/100 WBC (Bld) 9.8 % [facility] Neutrophils (Bld) [#/Vol] 4.91 10*3/uL [facility] Neutrophils/100 WBC (Bld) 68.0 % [facility] Nucleated RBC (Bld) [#/Vol] [facility] Nucleated RBC/100 WBC (Bld) [Ratio] 0.0 % /100 WBC [facility] Platelet mean volume (Bld) [Entitic vol] 10.7 fL 9.0 - 12.7 fL [facility] Platelets (Bld) [#/Vol] 136 10*3/uL Low [facility] RBC (Bld) [#/Vol] 3.05 10*6/uL Low 4.20 - 6.0 0 m/uL [facility] WBC (Bld) [#/Vol] 7.23 10*3/uL [facility] Basophils (Bld) [#/Vol] 0.03 10*3/uL Normal <0.11 [facility] Comment on above: Order Comment: Speci men Type: BLOOD SPECIMENOrdering Facility: [facility] Address: [address] [place] [address] Performed By: #### 5 7021-8 ####[facility] [id number] [place] [address] Basophils/100 WBC (Bld) 0.4 % Normal [facility] Comment on above: Order Comment: Speci men Type: BLOOD SPECIMENOrdering Facility: [facility] Address: [address] [place] [address] Performed By: #### 5 7021-8 ####[facility] [id number] [place] [address] Differential cell count method Nom (Bld) Auto Normal [facility] Comment on above: Order Comment: Speci men Type: BLOOD SPECIMENOrdering Facility: [facility] Address: [address] [place] [address] Performed By: #### 5 7021-8 ####[facility] [id number] [place] [address] Eosinophils (Bld) [#/Vol] 0.03 10*3/uL Normal <0.46 [facility] Comment on above: Order Comment: Speci men Type: BLOOD SPECIMENOrdering Facility: [facility] Address: [address] [place] [address] Performed By: #### 5 7021-8 ####[facility] [id number] [place] [address] Eosinophils/100 WBC (Bld) 0.4 % Normal [facility] Comment on above: Order Comment: Speci men Type: BLOOD SPECIMENOrdering Facility: [facility] Address: [address] [place] [address] Performed By: #### 5 7021-8 ####[facility] [id number] [place] [address] Erythrocyte distribution width (RBC) [Ratio] 15.8 % High 11.5-15.0 [facility] Comment on above: Order Comment: Speci men Type: BLOOD SPECIMENOrdering Facility: [facility] Address: [address] [place] [address] Performed By: #### 5 7021-8 ####[facility] [id number] [place] [address] Hematocrit (Bld) [Volume fraction] 30.4 % Low 39.0-51.0 [facility] Comment on above: Order Comment: Speci men Type: BLOOD SPECIMENOrdering Facility: [facility] Address: [address] [place] [address] Performed By: #### 5 7021-8 ####[facility] [id number] [place] [address] Hemoglobin (Bld) [Mass/Vol] 9.8 g/dL Low 13.0-17.0 [facility] Comment on above: Order Comment: Speci men Type: BLOOD SPECIMENOrdering Facility: [facility] Address: [address] [place] [address] Performed By: #### 5 7021-8 ####[facility] [id number] [place] [address] Immature granulocytes (Bld) [#/Vol] 0.05 10*3/uL Normal <0.10 [facility] Comment on above: Order Comment: Speci men Type: BLOOD SPECIMENOrdering Facility: [facility] Address: [address] [place] [address] Performed By: #### 5 7021-8 ####[facility] [id number] [place] [address] Immature granulocytes/100 WBC (Bld) 0.7 % Normal [facility] Comment on above: Order Comment: Speci men Type: BLOOD SPECIMENOrdering Facility: [facility] Address: [address] [place] [address] Performed By: #### 5 7021-8 ####[facility] [id number] [place] [address] Lymphocytes (Bld) [#/Vol] 1.50 10*3/uL Normal 1.00-4.00 [facility] Comment on above: Order Comment: Speci men Type: BLOOD SPECIMENOrdering Facility: [facility] Address: [address] [place] [address] Performed By: #### 5 7021-8 ####[facility]IA [id number] [place] [address] Lymphocytes/100 WBC (Bld) 20.7 % Normal [facility] Comment on above: Order Comment: Speci men Type: BLOOD SPECIMENOrdering Facility: [facility] Address: [address] [place] [address] Performed By: #### 5 7021-8 ####[facility] [id number] [place] [address] MCH (RBC) [Entitic mass] 32.1 pg Normal 26.0-34.0 [facility] Comment on above: Order Comment: Speci men Type: BLOOD SPECIMENOrdering Facility: [facility] Address: [address] [place] [address] Performed By: #### 5 7021-8 ####[facility] [id number] [place] [address] MCHC (RBC) [Mass/Vol] 32.2 g/dL Normal 30.5-36.0 [facility] Comment on above: Order Comment: Speci men Type: BLOOD SPECIMENOrdering Facility: [facility] Address: [address] [place] [address] Performed By: #### 5 7021-8 ####[facility] [id number] [place] [address] MCV (RBC) [Entitic vol] 99.7 fL Normal 80.0-100.0 [facility] Comment on above: Order Comment: Speci men Type: BLOOD SPECIMENOrdering Facility: [facility] Address: [address] [place] [address] Performed By: #### 5 7021-8 ####[facility] [id number] [place] [address] Monocytes (Bld) [#/Vol] 0.71 10*3/uL Normal <0.87 [facility] Comment on above: Order Comment: Speci men Type: BLOOD SPECIMENOrdering Facility: [facility] Address: [address] [place] [address] Performed By: #### 5 7021-8 ####[facility]CLIA [id number] [place] [address] Monocytes/100 WBC (Bld) 9.8 % Normal [facility] Comment on above: Order Comment: Speci men Type: BLOOD SPECIMENOrdering Facility: [facility] Address: [address] [place] [address] Performed By: #### 5 7021-8 ####[facility]CLIA [id number] [place] [address] Neutrophils (Bld) [#/Vol] 4.91 10*3/uL Normal 1.45-7.50 [facility] Comment on above: Order Comment: Speci men Type: BLOOD SPECIMENOrdering Facility: [facility] Address: [address] [place] [address] Performed By: #### 5 7021-8 ####[facility]CLIA [id number] [place] [address] Neutrophils/100 WBC (Bld) 68.0 % Normal [facility] Comment on above: Order Comment: Speci men Type: BLOOD SPECIMENOrdering Facility: [facility] Address: [address] [place] [address] Performed By: #### 5 7021-8 ####[facility]CLIA [id number] [place] [address] Nucleated RBC (Bld) [#/Vol] 10*3/uL Normal <0.01 [facility] Comment on above: Order Comment: Speci men Type: BLOOD SPECIMENOrdering Facility: [facility] Address: [address] [place] [address] Performed By: #### 5 7021-8 ####[facility]CLIA [id number] [place] [address] Nucleated RBC/100 WBC (Bld) [Ratio] 0.0 /100 WBC Normal [facility] Comment on above: Order Comment: Speci men Type: BLOOD SPECIMENOrdering Facility: [facility] Address: [address] [place] [address] Performed By: #### 5 7021-8 ####[facility]IA [id number] [place] [address] Platelet mean volume (Bld) [Entitic vol] 10.7 fL Normal 9.0-12.7 [facility] Comment on above: Order Comment: Speci men Type: BLOOD SPECIMENOrdering Facility: [facility] Address: [address] [place] [address] Performed By: #### 5 7021-8 ####[facility]IA [id number] [place] [address] Platelets (Bld) [#/Vol] 136 10*3/uL Low 150-400 [facility] Comment on above: Order Comment: Speci men Type: BLOOD SPECIMENOrdering Facility: [facility] Address: [address] [place] [address] Performed By: #### 5 7021-8 ####[facility]IA [id number] [place] [address] RBC (Bld) [#/Vol] 3.05 10*6/uL Low 4.20-6.00 [facility] Comment on above: Order Comment: Speci men Type: BLOOD SPECIMENOrdering Facility: [facility] Address: [address] [place] [address] Performed By: #### 5 7021-8 ####[facility]IA [id number] [place] [address] WBC (Bld) [#/Vol] 7.23 10*3/uL Normal 3.70-11.00 [facility] Comment on above: Order Comment: Speci men Type: BLOOD SPECIMENOrdering Facility: [facility] Address: [address], [place] [address] Performed By: #### 5 7021-8 ####[facility]IA [id number] [place] [address] CNOVSPon 02-12-2024 CNOVSP Visit (SP) Office ([place]) JAVI SIERRAARD Mikayla ([id number]) 1945 M Date Time Provider Department 02/12/24 9:30 AM MARLEE DAN During your visit today, we recorded the following information about you: Temperature Pulse Respiration Blood pressure 97.7 degrees 62/minute 16/minute 138/70 Weight Height 84.9 kg 1.778 m Marlee Dan PA-C 02/12/2024 10:28 AM Signed PATIENT NAME: Jolly Sierra DATE: 02/12/2024 PRIMARY CARE PHYSICIAN: Jose J Donaldson Jr, DO OTHER PHYSICIANS: Dr. Jason Will, Dr. Antonio Gary Portions of this encounter note have been copied from the note from 01/08/2024 and has been updated where appropriate, and reflect my current medical decision making from today. CC: This is a 78 year old male with recently diagnosed bladder cancer, seen for scheduled follow-up. INTERM HISTORY: Patient is here for follow-up today. At the patient's last infusion on 01/14 he received gemcitabine and cisplatin after not feeling well the week prior. Today the patient is feeling better. Energy and appetite is much better. No fevers or night sweats. Still mild leg swelling, but much better. Patient reports mild nausea, no vomitting. Patient is not in pain today. Patient has cystoscopy scheduled for 02/17. Denies any hematuria or dysuria. MEDICATIONS: Current Outpatient Medications Medication Sig psyllium seed, with sugar, (METAMUCIL, SUGAR, ORAL) Take by mouth. ondansetron (ZOFRAN) 8 mg tablet Take 1 tablet by mouth every 8 hours as needed for nausea/vomiting. prochlorperazine (COMPAZINE) 10 mg tablet Take 1 tablet by mouth every 6 hours as needed. ramipril (ALTACE) 10 mg capsule Take 10 mg by mouth once daily. No current facility-administered medications for this visit. ALLERGIES: ALLERGIES No Known Allergies PAST MEDICAL HISTORY: PAST MEDICAL HISTORY Diagnosis Date HLD (hyperlipidemia) HTN (hypertension) Neurogenic bladder PAST SURGICAL HISTORY: PAST SURGICAL HISTORY Procedure Laterality Date CYSTOSCOPY PAST SURGICAL HISTORY OF 2005 bladder surgery PAST SURGICAL HISTORY OF Robotic Laproscopic Cystoplasty bladder augmentation with stent FAMILY HISTORY: FAMILY HISTORY Problem Relation Age of Onset Heart disease Father SOCIAL HISTORY: Social History Tobacco Use Smoking status: Never Passive exposure: Never Smokeless tobacco: Never Vaping Use Vaping status: Never Used Substance Use Topics Alcohol use: Not Currently Drug use: Never COMPLETE REVIEW OF SYSTEMS: CONSTITUTION: Negative for pain, fatigue, weight loss, or appetite loss. EENT: Negative for mouth soreness, antibiotics use, epistaxis, visual problems, neck or facial swelling, fever/chills, bleeding gums, or hearing loss. CV: +mild L ankle edema. Negative for calf swelling, palpitations, or chest pain. RESPIRATORY: Negative for cough, SOB, hemoptysis, or wheezing. GI: +mild nausea. Negative for vomiting, heartburn, vomiting blood, dysphasia, diarrhea, blood in stool, constipation, early satiety, PICA, vegetarian, poor nutrition, abdominal fullness, or abdominal pain. NEUROLOGICAL: Negative for numbness/tingling, dizziness, gait disturbance, headache, speech disturbance, tremor, hemiparesis/sensory loss, or change in mental status. MUSCULOSKELETAL: Negative for joint pain, joint swelling, or proximal muscle weakness. SKIN: Negative for hair loss, bruising, nail changes, rash, itching, pallor, or jaundice. ENDO/URO: Negative for hot flashes, cold or heat intolerance, urinary frequency, urinary hesitancy, menorrhagia, or hematuria. PSYCH: Negative for anxiety, depression, or other. PHYSICAL EXAM: BP 138/70 Pulse 62 Temp 36.5 ?C (97.7 ?F) (Temporal) Resp 16 Ht 177.8 cm (5' 10 ) Wt 84.9 kg (187 lb 2.7 oz) SpO2 100% BMI 26.86 kg/m? General: Alert and oriented, no distress, pleasant and cooperative. Heart: Regular, normal S1 and S2, no murmurs, rubs, or gallops Lungs: Clear to auscultation bilaterally Abdomen: Benign Extremities: Feet/ankles without edema, right medial antecub with small area of swelling, no redness or warmth PATHOLOGY: 09/06/2023 Robotic bladder diverticulectomy and right pelvic lymph node dissection. A. Urinary bladder, neck of diverticulum, excision: - Benign bladder mucosa and muscularis propria. B. Lymph nodes, right pelvic, regional resection: - Two lymph nodes, negative for malignancy (0/2). C. 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 - Margins are negative for tumor. LABS: Hemoglobin (g/dL) Date Value 02/12/2024 9.8 Hematocrit (%) Date Value 02/12/2024 30.4 WBC (k/uL) Date Value 02/12/2024 7.23 Platelet Count (k/uL) Date Value 02/12/2024 136 RAD (more content not included)... Normal [facility] Comprehensive metabolic 2000 panelOrdered By: Mehnaz Pugh on 02-12-2024 Albumin [Mass/Vol] 3.9 g/dL 3.9 - 4.9 g/dL [facility] ALP [Catalytic activity/Vol] 77 U/L 38 - 113 U/L [facility] ALT [Catalytic activity/Vol] 7 U/L Low 10 - 54 U/L [facility] Anion gap [Moles/Vol] 7 mmol/L Low 8 - 15 mmol/L [facility] AST [Catalytic activity/Vol] 10 U/L Low 14 - 40 U/L [facility] Bilirubin [Mass/Vol] 0.3 mg/dL 0.2 - 1 .3 mg/dL [facility] Calcium [Mass/Vol] 9.7 mg/dL 8.5 - 10. 2 mg/dL [facility] Chloride [Moles/Vol] 105 mmol/L 98 - 10 7 mmol/L [facility] CO2 [Moles/Vol] 29 mmol/L 22 - 30 mmol/L [facility] Creatinine [Mass/Vol] 1.35 mg/dL High 0.73 - 1.22 mg/dL [facility] GFR/1.73 sq M.predicted among non-blacks MDRD (S/P/Bld) [Vol rate/Area] 54 mL/min/{1.73_m2} Low - PINF [facility] Comment on above: Estimated Glomerular Filtration Rate (eGFR) is calculated using the 2020 CKD-EPI creatinine equation. This equation utilizes serum creatinine, sex, and age as parameters. The creatinine assay has traceable calibration to isotope dilution-mass spectrometry. Refer to KDIGO guidelines for clinical interpretation. In patients with unstable renal function, e.g. those with acute kidney injury, the eGFR may not accurately reflect actual GFR. Glucose [Mass/Vol] 198 mg/dL High 74 - 99 mg/dL [facility] Comment on above: The [place] Diabete s Association (ADA) provides guidance for cutoff values for fasting glucose and random glucose. The ADA defines fasting as no caloric intake for at least 8 hours. Fasting plasma glucose results between 100 to 125 mg/dL indicate increased risk for diabetes (prediabetes). Fasting plasma glucose results greater than or equal to 126 mg/dL meet the criteria for diagnosis of diabetes. In the absence of unequivocal hyperglycemia, results should be confirmed by repeat testing. In a patient with classic symptoms of hyperglycemia or hyperglycemic crisis, random plasma glucose results greater than or equal to 200 mg/dL meet the criteria for diagnosis of diabetes. Reference: Standards of Medical Care in Diabetes 2016, [place] Diabetes Association. Diabetes Care. 2016.39(Suppl 1). Interpretation and review of laboratory results Abnormal [facility] Potassium [Moles/Vol] 4.8 mmol/L 3.7 - 5.1 mmol/L [facility] Protein [Mass/Vol] 7.3 g/dL 6.3 - 8.0 g/dL [facility] Sodium [Moles/Vol] 141 mmol/L 136 - 144 mmol/L [facility] Urea nitrogen [Mass/Vol] 34 mg/dL High 9 - 24 mg/dL [facility] Comprehensive metabolic 2000 panelon 02-12-2024 Albumin [Mass/Vol] 3.9 g/dL Normal 3.9-4.9 [facility] Comment on above: Order Comment: Speci men Type: BLOOD SPECIMEN [facility] Address: [address] [place] [address] Performed By: #### 2 4323-8 #### [facility] CLIA [id number] [address] [place] [address] ALP [Catalytic activity/Vol] 77 U/L Normal 38-113 [facility] Comment on above: Order Comment: Speci men Type: BLOOD SPECIMEN [facility] Address: [address] [place] [address] Performed By: #### 2 4323-8 #### [facility] CLIA [id number] [address] [place] [address] ALT [Catalytic activity/Vol] 7 U/L Low 10-54 [facility] Comment on above: Order Comment: Speci men Type: BLOOD SPECIMEN [facility] Address: [address] [place] [address] Performed By: #### 2 4323-8 #### [facility] CLIA [id number] [address] [place] [address] Anion gap [Moles/Vol] 7 mmol/L Low 8-15 [facility] Comment on above: Order Comment: Speci men Type: BLOOD SPECIMEN [facility] Facility[facility] Address: [address] [place] [address] Performed By: #### 2 4323-8 #### [facility] CLIA [id number] [address] [place] [address] 30561 AST [Catalytic activity/Vol] 10 U/L Low 14-40 [facility] Comment on above: Order Comment: Speci men Type: BLOOD SPECIMEN Ordering Facility: [facility] Address: [address] [place], [place] [address] Performed By: #### 2 4323-8 #### [facility] CLIA [id number] [address] [place] [address]2445 Bilirubin [Mass/Vol] 0.3 mg/dL Normal 0.2-1.3 [facility] Comment on above: Order Comment: Speci men Type: BLOOD SPECIMEN Ordering Facility: [facility] Address: [address] [place] [address] Performed By: #### 2 4323-8 #### [facility] CLIA [id number] [address] [place] [address] Calcium [Mass/Vol] 9.7 mg/dL Normal 8.5-10.2 [facility] Comment on above: Order Comment: Speci men Type: BLOOD SPECIMEN Ordering Facility: [facility] Address: [address] [place] [id number] Performed By: #### 2 4323-8 #### [facility] CLIA [id number] [address] [place] [address] 49761 Chloride [Moles/Vol] 105 mmol/L Normal 98-107 [facility] Comment on above: Order Comment: Speci men Type: BLOOD SPECIMEN Ordering Facility: [facility] Address: [address] [place] [address] Performed By: #### 2 4323-8 #### [facility] CLIA [id number] [address] [place] [address] 56210 CO2 [Moles/Vol] 29 mmol/L Normal 22-30 [facility] Comment on above: Order Comment: Speci men Type: BLOOD SPECIMEN [facility] Facility[facility] Address: [address] [place], [place] [address] Performed By: #### 2 4323-8 #### [facility] CLIA [id number] [address] [place] [address]404 Creatinine [Mass/Vol] 1.35 mg/dL High 0.73-1.22 [facility] Comment on above: Order Comment: Speci men Type: BLOOD SPECIMEN [facility] Address: [address] [place], [place] [address] Performed By: #### 2 4323-8 #### [facility] CLIA [id number] [address] [place] [address]96 Creatinine and Glomerular filtration rate.predicted panel (S/P/Bld) 54 mL/min/1.73m??? Low >=60 [facility] Comment on above: Order Comment: Lucia red Type: BLOOD SPECIMEN Order[facility] Facility[facility] Address: [address] [id number] Result Comment: Alexia mated Glomerular Filtration Rate (eGFR) is calculated using the 2020 CKD-EPI creatinine equation. This equation utilizes serum creatinine, sex, and age as parameters. The creatinine assay has traceable calibration to isotope dilution-mass spectrometry. Refer to KDIGO guidelines for clinical interpretation. In patients with unstable renal function, e.g. those with acute kidney injury, the eGFR may not accurately reflect actual GFR. Performed By: #### 2 4323-8 #### [facility] CLIA [id number] [address] [place] [address]22 Glucose [Mass/Vol] 198 mg/dL High 74-99 [facility] Comment on above: Order Comment: Lucia red Type: BLOOD SPECIMEN Order[facility] Facility[facility] Address: [address] [id number] Result Comment: The [place] Diabetes Association (ADA) provides guidance for cutoff values for fasting glucose and random glucose. The ADA defines fasting as no caloric intake for at least 8 hours. Fasting plasma glucose results between 100 to 125 mg/dL indicate increased risk for diabetes (prediabetes). Fasting plasma glucose results greater than or equal to 126 mg/dL meet the criteria for diagnosis of diabetes. In the absence of unequivocal hyperglycemia, results should be confirmed by repeat testing. In a patient with classic symptoms of hyperglycemia or hyperglycemic crisis, random plasma glucose results greater than or equal to 200 mg/dL meet the criteria for diagnosis of diabetes. Reference: Standards of Medical Care in Diabetes 2016, [place] Diabetes Association. Diabetes Care. 2016.39(Suppl 1). Performed By: #### 2 4323-8 #### [facility] CLIA [id number] [address] [place] [address] Potassium [Moles/Vol] 4.8 mmol/L Normal 3.7-5.1 [facility] Comment on above: Order Comment: Lucia red Type: BLOOD SPECIMEN [facility] Address: [address] [place] [address] Performed By: #### 2 4323-8 #### [facility] CLIA [id number] [address] [place] [address] Protein [Mass/Vol] 7.3 g/dL Normal 6.3-8.0 [facility] Comment on above: Order Comment: Speci men Type: BLOOD SPECIMEN [facility] Facility[facility] Address: [address] [id number] Performed By: #### 2 4323-8 #### [facility] CLIA [id number] [address] [place] [address] Sodium [Moles/Vol] 141 mmol/L Normal 136-144 [facility] Comment on above: Order Comment: Speci men Type: BLOOD SPECIMEN Ordering Facility[facility] Address: [address] [place] [address] Performed By: #### 2 4323-8 #### [facility] CLIA [id number] [address] [place] [address] Urea nitrogen [Mass/Vol] 34 mg/dL High 9-24 [facility] Comment on above: Order Comment: Speci men Type: BLOOD SPECIMEN Ordering Facility[facility] Address: [address] [place] [address] Performed By: #### 2 4323-8 #### [facility] CLIA [id number] [address] [place] [address] MAGNESIUMon 02-12-2024 Magnesium [Mass/Vol] 1.9 mg/dL 1.7 - 2 .3 mg/dL [facility] Magnesium SerPl-mCncon 02-11 Magnesium [Mass/Vol] 1.9 mg/dL Normal 1.7-2.3 [facility] Comment on above: Order Comment: Speci men Type: BLOOD SPECIMEN Order[facility] Facility[facility] Address: [facility] [place] [address] Performed By: #### 2 4323-8 #### [facility] CLIA [id number] [address] [place] [address] Magnesium [Mass/Vol]on 02-11 Interpretation and review of laboratory results Normal [facility] CNPNon 02-11-2024 CNPN Telephone (URR) JOLLY SIERRA ([id number]) 1945 M Date Time Provider Department 02/11/24 [place] [facility] During your visit today, we recorded the following information about you: Amarilis Oh RN 02/11/2024 3:17 PM Signed LVM for patient to francia back to this office for pre op instructions. Will await return call. Patient did call back and LVM. A return call was made to the patient and LVM to call back to this office. Will await return call. Amarilis Oh RN 02/11/2024 3:52 PM Signed Procedure: TURBT Physician: Dr. Jason Will Location: [facility]: [phone] Date AND Time: 02/18/2024 MEDICAL CLEARANCE: No CARDIAC CLEARANCE: No PRE ADMISSION TESTIN01/28/24 AT: [place] THE FOLLOWING WAS EVALUATED Motivation To Learn: Interested Family/Significant Other Support: High - Very involved in pt care Cognitive Ability: Alert and oriented Patient Learns Best By: Individual Instruction Written Instruction - Hand-outs Verbal Instruction The Following Influencing Factors Were Barriers To This Education Session: None The Following Physical Limitations Were Barriers To This Education Session: None Instruction Provided To: Patient and Spouse MEDICATION INFORMATION ASPIRIN and ADVIL can make you more prone to bleeding after surgery. Please STOP taking these medications at least (5) days before and for (3) days after surgery or procedure. Some common medications that contain ASPIRIN or act like Aspirin are TO BE AVOIDED: This is a list of the medications you should avoid: Advill Celebrex Motrin Aggrenox Clinoril Naprosyn(naproxen) Agrylin NSAIDS Pepto-Bismol Aleve Ecotrin Persantine Cyndi-Melrose Excedrin Plaquenil Anacin Heparin Plavix Ascriptin Herbals Pletal Aspergum Ibuprofen Ticlid Lydia Indocin Trental Bextra Midol Vanquish Bufferin Gingko Biloba Vitamin E (MVI) MEDICATIONS YOU MAY SUBSTITUTE Anacin 3 Fioricet * Tylenol with codeine * Darvocet N 100 * Plenadol Percocet * Datril Sine-Aide Tylenol Excedrin PM (*Denotes prescription needed to obtain these medications) Learning Topic: Pre/post op information Instructions reviewed for arrival time, parking and admission. Specific topics reviewed and discussed with all surgical patients include: No eating, drinking, or smoking after midnight prior to surgery. Medications as prescribed by anesthesia or the physician. Bowel Prep as indicated. None Review of information contained in surgical packet Pre-operative and intra-operative general activities were reviewed including: Holding Area, assessments, surgical positioning, and Family Waiting Area. Written post-operative instructions were given to the patient regarding post-op activity, pain control, symptoms to report. Post-operative instructions provided and reviewed with patient/family: ACTIVITY - No heavy lifting (>5-10 lbs), no pushing/pulling, OK to climb stairs DRIVING - No driving while taking prescription pain medication, or within 24 hours of anesthesia, OK to ride in a car. DIET - Advance diet as tolerated and as ordered by MD, drink 8 glasses of water a day, eat a diet high in protein and fiber unless otherwise directed by MD. CATHETER - Will be inserted during surgery, you may go home with a catheter. If you go home with a catheter you will have to come back to the office for a voiding trial, UTI symptoms reviewed and patient instructed to notify MD of any of these symptoms. INCISION CARE - Keep incision clean and dry, johnny to be removed 7-10 days after surgery, steristrips do not need to be removed by MD BATHING - OK to shower after surgery unless otherwise directed by MD, no tub baths. PAIN MEDICATION - IV pain medication after surgery, IV FARM CONTRACTOR if ordered by MD, discharged home with a prescription for PO pain medication, pain management after surgery, side effects of pain medication (including constipation, dizziness, drowsiness, and medication interactions). DVT PROPHYLAXIS - Early ambulation, SCDs, injectable anticoagulants (heparin, lovenox, etc) RESPIRATORY - Incentive spirometer, coughing/deep breathing exercises, ambulation. RETURN TO WORK - As directed by physician, please send any FMLA papers to physician's escrow secretary. SYMPTOMS TO NOTIFY MD - Fever, chills, nausea, vomiting, increased or severe pain, heavy bleeding, foul smelling drainage, pain or swelling in extremities. URGENT SYMPTOMS - Call 911 or go to ER if any shortness of breath, difficulty breathing, or chest pain. HOW TO CONTACT PHYSICIAN - Physician's office phone number given to patient, if after hours patient instructed to call boarding machine operator and ask for the doctor cannon pinion adjuster. Patient and family have phone number to call 24 hours/day. Patient Evaluation: Verbalizes understanding Patient and/or family express understanding of upcoming surgery and the operat (more content not included)... [facility] 02-07-2024 [facility] Tele[facility] (HEMASA) JOLLY SIERRA ([id number]) 1945 M Date Time Provider Department 02/07/24 FAISAL DASILVA During your visit today, we recorded the following information about you: Kiara Daly MA 02/07/2024 9:[address] labs for appt on 02/11 if needed. Kiara Dayl MA Allergies As of Date: 02/07/2024 (No Known Allergies) Date Reviewed: 02/07/2024 Reviewed by: Marlee Dan PA-C - Fully Assessed Reason for Visit: Lab Orders [1688] Primary Visit Diagnosis:Malignant neoplasm of overlapping sites of bladder (HCC) [C67.8] Order(s):COMPREHENSIVE METABOLIC PANEL [SQCMP] Order #: [id number] FUTURE COMPLETE BLOOD COUNT AND DIFFERENTIAL [SQCBCDIF] Order #: [id number] FUTURE MAGNESIUM [SQMG1] Order #: [id number] FUTURE Prescriptions as of 02/13/2024 - psyllium seed, with sugar, (METAMUCIL, SUGAR, ORAL) Take by mouth. - ondansetron (ZOFRAN) 8 mg tablet Take 1 tablet by mouth every 8 hours as needed for nausea/vomiting. - prochlorperazine (COMPAZINE) 10 mg tablet Take 1 tablet by mouth every 6 hours as needed. - ramipril (ALTACE) 10 mg capsule Take 10 mg by mouth once daily. 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 Dasilva, Will is scheduled for cystourethroscopy 02/18/2024. He is under your care for his history of bladder cancer including anemia. Please review 01/28/2024 CBC hgb/hct 28.5% , platelets 188 Requesting Optimization for above planned procedure from hematologic perspective. Bridget Desai APRN.CNP [facility] Allergies As of Date: 01/29/2024 (No Known Allergies) Date Reviewed: 01/28/2024 Reviewed by: Bridget Desai APRN.RETREAD SUPERVISOR - Fully Assessed Reason for Visit: Results [95] Preparations For Surgery [898] Prescriptions as of 01/29/2024 - psyllium seed, with sugar, (METAMUCIL, SUGAR, ORAL) Take by mouth. - ondansetron (ZOFRAN) 8 mg tablet Take 1 tablet by mouth every 8 hours as needed for nausea/vomiting. - prochlorperazine (COMPAZINE) 10 mg tablet Take 1 tablet by mouth every 6 hours as needed. - ramipril (ALTACE) 10 mg capsule Take 10 mg by mouth once daily. 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 Encounter Status:Closed by BRIDGET DESAI on 01/29/24 Normal [facility] CBC panel Auto (Bld)on 01-27 Erythrocyte distribution width (RBC) [Ratio] 17.5 % High 11.5-15.0 [facility] Comment on above: Order Comment: Speci men Type: BLOOD SPECIMEN [facility] Address: [address] [place] [address] Performed By: #### 2 4323-8 #### [facility] CLIA [id number] [address] [place] [address] Hematocrit (Bld) [Volume fraction] 28.5 % Low 39.0-51.0 [facility] Comment on above: Order Comment: Speci men Type: BLOOD SPECIMEN Order[facility] Address: [address] [place] [address] Performed By: #### 2 4323-8 #### [facility] CLIA [id number] [address] [place] [address]382 Hemoglobin (Bld) [Mass/Vol] 9.0 g/dL Low 13.0-17.0 [facility] Comment on above: Order Comment: Speci men Type: BLOOD SPECIMEN [facility] Address: [address] [place] [address] Performed By: #### 2 4323-8 #### [facility] CLIA [id number] [address] [place] [address] 13766 MCH (RBC) [Entitic mass] 32.4 pg Normal 26.0-34.0 [facility] Comment on above: Order Comment: Speci men Type: BLOOD SPECIMEN [facility] Address: [address] [place] [address] Performed By: #### 2 4323-8 #### [facility] CLIA [id number] [address] [place] [address] 47472 MCHC (RBC) [Mass/Vol] 31.6 g/dL Normal 30.5-36.0 [facility] Comment on above: Order Comment: Speci men Type: BLOOD SPECIMEN [facility] Address: [address] [place] [address] Performed By: #### 2 4323-8 #### [facility] CLIA [id number] [address] [place] [address] 40138 MCV (RBC) [Entitic vol] 102.5 fL High 80.0-100.0 [facility] Comment on above: Order Comment: Speci men Type: BLOOD SPECIMEN [facility] Address: [address] [place] [address] Performed By: #### 2 4323-8 #### [facility] CLIA [id number] [address] [place] [address]572 Nucleated RBC (Bld) [#/Vol] 10*3/uL Normal <0.01 [facility] Comment on above: Order Comment: Speci men Type: BLOOD SPECIMEN [facility] Address: [address] [place] [address] Performed By: #### 2 4323-8 #### [facility] CLIA [id number] [address] [place] [address] Platelet mean volume (Bld) [Entitic vol] 11.9 fL Normal 9.0-12.7 [facility] Comment on above: Order Comment: Speci men Type: BLOOD SPECIMEN [facility] Address: [address] [place] [address] Performed By: #### 2 4323-8 #### [facility] CLIA [id number] [address] [place] [address]6280 Platelets (Bld) [#/Vol] 188 10*3/uL Normal 150-400 [facility] Comment on above: Order Comment: Speci men Type: BLOOD SPECIMEN [facility] Address: [address] [place] [address] Performed By: #### 2 4323-8 #### [facility] CLIA [id number] [address] [place] [address] 87729 RBC (Bld) [#/Vol] 2.78 10*6/uL Low 4.20-6.00 [facility] Comment on above: Order Comment: Speci men Type: BLOOD SPECIMEN [facility] Address: [address] [place] [address] Performed By: #### 2 4323-8 #### [facility] CLIA [id number] [address] [place] [address]1424 WBC (Bld) [#/Vol] 4.66 10*3/uL Normal 3.70-11.00 [facility] Comment on above: Order Comment: Speci men Type: BLOOD SPECIMEN [facility] Address: [address] [place] [address] Performed By: #### 2 4323-8 #### [facility] CLIA [id number] [address] [place] [address] HISTORY PHYSICALon 4 HISTORY PHYSICAL HNO ID: [id number] Author: BRIDGET DESAI APRN.RETREAD SUPERVISOR Service: ? Author Type: Nurse Practitioner Type: H&P Filed: 01/30/2024 15:56 Note Text: [facility] HISTORY AND PHYSICAL EXAMINATION SERVICE DATE: 01/28/2024 SERVICE TIME: 2:25 PM PRIMARY CARE PHYSICIAN: Jose J Donaldson Jr, DO Assessment Patient has the following medical conditions which may affect lina-operative course: HLD (hyperlipidemia) Assessment: Managed with Statin , Follows with PCP HTN (hypertension) Assessment: Stable with med, follows with PCP. Date: BP: 01/28/2024 128/68 01/15/2024 134/63 Neurogenic bladder Assessment: able to urinate some , performs ISC 4-5 times/day. 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 Tripp Dasilva, Last office visit 01/08/2024 Has completed chemotherapy, currently Asymptomatic updated CBC Green Activity Status Index: METS: Walk indoors, such as around the house (1.75 METs) Do light work around the house, such as dusting or washing dishes (2.70 METs) Take care of self; that is eating, dressing, bathing, using the toilet (2.75 METs) Walk a block or two on level ground (2.75 METs) Do moderate work around the house, such as vacuuming, sweeping floors, or carrying in groceries (3.50 METs) Climb a flight of stairs or walk up a hill (5.50 METs) DASI Score: 18.95 Patient denies any chest pain or undue shortness of breath with the above physical activity. Clinical Frailty Scale: 3. Well, with treated comorbid disease STOP-Bang Score: Snores loudly Has or is being treated for high blood pressure Patient over 50 years old Male patient Denies feeling tired, fatigued, or sleepy during the daytime Has not been observed to stop breathing or choking/gasping during sleep BMI less than or equal to 35 kg/m2 Does not have a large neck STOP-Bang Score: 4 ANESTHESIA FINDINGS: Intubation History: No history of difficult intubation Significant Anesthesia Considerations: none Airway History: No history of difficult airway I - PHYSICAL EVALUATION AIRWAY Patient intubated: No. Mallampati: II. TM distance: >3 FB. Neck ROM: full ROM without neurological symptoms. Mouth opening: adequate. Short neck: no. Thick neck: no Polk present: no (MUSTACHE) Lip Bite Test: II Microretrognathia/Micr onagthia/Recessed Chin: No DENTAL Dental findings: teeth intact. II - ANESTHESIA PLAN Anesthetic plan additional comments: *PACC/TCI - anesthesia choice. Beta Koko Monitoring Plan Post Procedure Analgesic Plan Prepared for Surgery: optimally prepared for surgery. Consult to Dr. aDsilva for Hematologic optimization [TELEPHONE] . Completed, see dialogue. CONSULTS: Planned Anesthetic: anesthesia choice The Following Tests/Procedures Have Been Initiated: Orders Placed This Encounter Complete Blood Count Standing Status: Future Number of Occurrences: 1 Standing Expiration Date: 04/28/2024 psyllium seed, with sugar, (METAMUCIL, SUGAR, ORAL) Sig: Take by mouth. , EKG not indicated per PACC protocol REASON FOR VISIT: Jolly Sierra is a 78 year old male who is scheduled for Procedure(s): CYSTOURETHROSCOPY W/FULGURATION AND/OR RESECTION MEDIUM BLADDER TUMOR(S) 2.0 - 5.0 CM W/SALINE BIPOLAR (N/A) at the request of Dr. Jason Will for consultation. My final recommendation will be communicated back to the requesting physician by way of shared medical record or letter. Subjective COVID-19 Immunization Status Overdue - Covid-19 Vaccine (2023- season) Overdue since 01/06/2024 02/19/2023 Imm Admin: COVID-19 vaccine, age 12+ yr, 2022- season (PFIZER-BIONTECH) 02/01/2022 Imm Admin: COVID-19 vaccine, age 12+ yr, bivalent (PFIZER-BIONTECH) 08/22/2021 Imm Admin: COVID-19 original vaccine, age 12+ yr, monovalent (Cardiac Guard-BIONTECH - [facility]) Only the first 3 history entries have been loaded, but more history exists. 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 Neurogenic bladder, able to urinate some , performs ISC 4-5 times/day. He completed Keflex ATB TID treatment for UTI 01/27/2024, per Surgeon. He currently denies pain, dysuria or hematuria. REVIEW OF SYSTEMS: General: No weight loss, malaise or fevers. Neurological: No history of TIA's, stroke, EXPLOSION WELDER tumor, impaired sensorium, hemiplegia, paraplegia or quadraplegia. No neurological symptoms or problems. Respiratory: No history of current cough or dyspnea, or pneumonia in the past 6 weeks. No history of respiratory/pulmonary symptoms or problems. Cardiovascular: Positive for: hyperlipidemia and hypertension Negative for: CAD, chest pain, CHF, DVT/PE and murmur/valvular heart disease. GI: No history of GI symptoms or (more content not included)... Normal [facility] ACTIVATED PARTIAL THROMBOPLA STIN TIMEOrdered By: Rhona Medel on 01-15-2024 aPTT Coag (PPP) [Time] 27.3 s [facility] Comment on above: Frozen Plasma Aliquo t Bacteria Ur Culton Bacteria identified Cx Nom (U) ORGANISM ID: 1 >=100,000 CFU/ml Escherichia coli ORGANISM ID: 1 (ESCHERICHIA COLI) -- ANTIBIOTIC INTERPRETATION SAMUEL STATUS REFERENCE RANGE -- Ampicillin R >=32 F Susceptible <=8 , Intermediate >8 , Resistant >16 Cefazolin S <=4 F Susceptible 0-16 , Intermediate <0 or >16 , Resistant >16 For uncomplicated urinary tract infections, cefazolin results can be used to predict susceptibility or resistance to cephalexin. Ceftriaxone S <=1 F Susceptible <=1 , Intermediate >1 , Resistant >=4 Cefepime S <=1 F Susceptible <=2 , Susceptible-Dose Dependent >2 , Resistant >=16 Ertapenem S <=0.5 F Susceptible <=0.5 , Intermediate >.5 , Resistant >1 Meropenem S <=0.25 F Susceptible <=1 , Intermediate >1 , Resistant >2 Ampicillin/Sulbact S 4 F Susceptible <=8 , Intermediate >8 , Resistant >16 Piperacillin/Tazobac S <=4 F Susceptible <16 , Susceptible-Dose Dependent >=16 , Resistant >=32 Gentamicin S <=1 F Susceptible <=2 , Intermediate >2 , Resistant >=8 Tobramycin S <=1 F Susceptible <4 , Intermediate >=4 , Resistant >=8 Trimeth sulfameth R >=320 F Susceptible <=40 , Resistant >40 Ciprofloxacin S <=0.25 F Susceptible <0.5 , Intermediate >=.5 , Resistant >=1 Nitrofurantoin S <=16 F Susceptible <=32 , Intermediate >32 , Resistant >64 Abnormal [facility] Comment on above: Performed By: #### 6 30-4 ####[facility] LABCLIA [id number] [address] [place] CBC W Auto Differential pane l (Bld)on 01-15-2024 Basophils (Bld) [#/Vol] [facility] Basophils/100 WBC (Bld) 0.5 % [facility] Differential cell count method Nom (Bld) Auto [facility] Eosinophils (Bld) [#/Vol] [facility] Eosinophils/100 WBC (Bld) 0.2 % [facility] Erythrocyte distribution width (RBC) [Ratio] 16.9 % High 11.5 - 15.0 % [facility] Hematocrit (Bld) [Volume fraction] 26.6 % Low 39.0 - 51.0 % [facility] Hemoglobin (Bld) [Mass/Vol] 8.9 g/dL Low 13.0 - 17.0 g/dL [facility] Immature granulocytes (Bld) [#/Vol] [facility] Immature granulocytes/100 WBC (Bld) 0.5 % [facility] Interpretation and review of laboratory results Abnormal [facility] Lymphocytes (Bld) [#/Vol] 1.03 10*3/uL [facility] Lymphocytes/100 WBC (Bld) 23.9 % [facility] MCH (RBC) [Entitic mass] 32.0 pg 26.0 - 34.0 pg [facility] MCHC (RBC) [Mass/Vol] 33.5 g/dL 30.5 - 36.0 g/dL [facility] MCV (RBC) [Entitic vol] 95.7 fL 80.0 - 100.0 fL [facility] Monocytes (Bld) [#/Vol] 0.63 10*3/uL [facility] Monocytes/100 WBC (Bld) 14.6 % [facility] Neutrophils (Bld) [#/Vol] 2.60 10*3/uL [facility] Neutrophils/100 WBC (Bld) 60.3 % [facility] Nucleated RBC (Bld) [#/Vol] [facility] Nucleated RBC/100 WBC (Bld) [Ratio] 0.0 % /100 WBC [facility] Platelet mean volume (Bld) [Entitic vol] 11.5 fL 9.0 - 12.7 fL [facility] Platelets (Bld) [#/Vol] 91 10*3/uL Low [facility] Comment on above: No clot detected.Res ults checked and verified. RBC (Bld) [#/Vol] 2.78 10*6/uL Low 4.20 - 6.0 0 m/uL [facility] WBC (Bld) [#/Vol] 4.31 10*3/uL [facility] Basophils (Bld) [#/Vol] 10*3/uL Normal <0.11 [facility] Comment on above: Order Comment: Speci men Type: BLOOD SPECIMENOrdering Facility: [facility] Address: [address] [place] [address] Performed By: #### 5 7021-8 ####[facility] LABCLIA [id number] [place] [address] Basophils/100 WBC (Bld) 0.5 % Normal [facility] Comment on above: Order Comment: Speci men Type: BLOOD SPECIMENOrdering Facility: [facility] Address: [address] [place] [address] Performed By: #### 5 7021-8 ####[facility] LABCLIA [id number] [place] [address] Differential cell count method Nom (Bld) Auto Normal [facility] Comment on above: Order Comment: Speci men Type: BLOOD SPECIMENOrdering Facility: [facility] Address: [address] [place] [address] Performed By: #### 5 7021-8 ####[facility] LABCLIA [id number] [place] [address] Eosinophils (Bld) [#/Vol] 10*3/uL Normal <0.46 [facility] Comment on above: Order Comment: Speci men Type: BLOOD SPECIMENOrdering Facility: [facility] Address: [address] [place] [address] Performed By: #### 5 7021-8 ####[facility] LABCLIA [id number] [place] [address] Eosinophils/100 WBC (Bld) 0.2 % Normal [facility] Comment on above: Order Comment: Speci men Type: BLOOD SPECIMENOrdering Facility: [facility] Address: [address] [place] [address] Performed By: #### 5 7021-8 ####[facility] LABCLIA [id number] [place] [address] Erythrocyte distribution width (RBC) [Ratio] 16.9 % High 11.5-15.0 [facility] Comment on above: Order Comment: Speci men Type: BLOOD SPECIMENOrdering Facility: [facility] Address: [address] [place] [address] Performed By: #### 5 7021-8 ####[facility] LABCLIA [id number] [place] [address] Hematocrit (Bld) [Volume fraction] 26.6 % Low 39.0-51.0 [facility] Comment on above: Order Comment: Speci men Type: BLOOD SPECIMENOrdering Facility: [facility] Address: [address] [place] [address] Performed By: #### 5 7021-8 ####[facility] LABCLIA [id number] [place] [address] Hemoglobin (Bld) [Mass/Vol] 8.9 g/dL Low 13.0-17.0 [facility] Comment on above: Order Comment: Speci men Type: BLOOD SPECIMENOrdering Facility: [facility] Address: [address] [place] [address] Performed By: #### 5 7021-8 ####[facility] LABCLIA [id number] [place] [address] Immature granulocytes (Bld) [#/Vol] 10*3/uL Normal <0.10 [facility] Comment on above: Order Comment: Speci men Type: BLOOD SPECIMENOrdering Facility: [facility] Address: [address] [place] [address] Performed By: #### 5 7021-8 ####[facility] LABCLIA [id number] [place] [address] Immature granulocytes/100 WBC (Bld) 0.5 % Normal [facility] Comment on above: Order Comment: Speci men Type: BLOOD SPECIMENOrdering Facility: [facility] Address: [address] [place] [address] Performed By: #### 5 7021-8 ####[facility] LABCLIA [id number] [place] [address] Lymphocytes (Bld) [#/Vol] 1.03 10*3/uL Normal 1.00-4.00 [facility] Comment on above: Order Comment: Speci men Type: BLOOD SPECIMENOrdering Facility: [facility] Address: [address] [place] [address] Performed By: #### 5 7021-8 ####[facility] LABCLIA [id number] [place] [address] Lymphocytes/100 WBC (Bld) 23.9 % Normal [facility] Comment on above: Order Comment: Speci men Type: BLOOD SPECIMENOrdering Facility: [facility] Address: [address] [place] [address] Performed By: #### 5 7021-8 ####[facility] LABCLIA [id number] [place] [address] MCH (RBC) [Entitic mass] 32.0 pg Normal 26.0-34.0 [facility] Comment on above: Order Comment: Speci men Type: BLOOD SPECIMENOrdering Facility: [facility] Address: [address] [place] [address] Performed By: #### 5 7021-8 ####[facility] LABIA [id number] [place] [address] MCHC (RBC) [Mass/Vol] 33.5 g/dL Normal 30.5-36.0 [facility] Comment on above: Order Comment: Speci men Type: BLOOD SPECIMENOrdering Facility: [facility] Address: [address] [place] [address] Performed By: #### 5 7021-8 ####[facility] LABCLIA [id number] [place] [address] MCV (RBC) [Entitic vol] 95.7 fL Normal 80.0-100.0 [facility] Comment on above: Order Comment: Speci men Type: BLOOD SPECIMENOrdering Facility: [facility] Address: [address] [place] [address] Performed By: #### 5 7021-8 ####[facility] LABIA [id number] [place] [address] Monocytes (Bld) [#/Vol] 0.63 10*3/uL Normal <0.87 [facility] Comment on above: Order Comment: Speci men Type: BLOOD SPECIMENOrdering Facility: [facility] Address: [address] [place] [address] Performed By: #### 5 7021-8 ####[facility] LABCLIA [id number] [place] [address] Monocytes/100 WBC (Bld) 14.6 % Normal [facility] Comment on above: Order Comment: Speci men Type: BLOOD SPECIMENOrdering Facility: [facility] Address: [address] [place] [address] Performed By: #### 5 7021-8 ####[facility] LABCLIA [id number] [place] [address] Neutrophils (Bld) [#/Vol] 2.60 10*3/uL Normal 1.45-7.50 [facility] Comment on above: Order Comment: Speci men Type: BLOOD SPECIMENOrdering Facility: [facility] Address: [address] [place] [address] Performed By: #### 5 7021-8 ####[facility] LABCLIA [id number] [place] [address] Neutrophils/100 WBC (Bld) 60.3 % Normal [facility] Comment on above: Order Comment: Speci men Type: BLOOD SPECIMENOrdering Facility: [facility] Address: [address] [place] [address] Performed By: #### 5 7021-8 ####[facility] LABCLIA [id number] [place] [address] Nucleated RBC (Bld) [#/Vol] 10*3/uL Normal <0.01 [facility] Comment on above: Order Comment: Speci men Type: BLOOD SPECIMENOrdering Facility: [facility] Address: [address] [place] [address] Performed By: #### 5 7021-8 ####[facility] LABCLIA [id number] [place] [address] Nucleated RBC/100 WBC (Bld) [Ratio] 0.0 /100 WBC Normal [facility] Comment on above: Order Comment: Speci men Type: BLOOD SPECIMENOrdering Facility: [facility] Address: [address] [place] [address] Performed By: #### 5 7021-8 ####[facility] LABIA [id number] [place] [address] Platelet mean volume (Bld) [Entitic vol] 11.5 fL Normal 9.0-12.7 [facility] Comment on above: Order Comment: Speci men Type: BLOOD SPECIMENOrdering Facility: [facility] Address: [address] [place] [address] Performed By: #### 5 7021-8 ####[facility] LABIA [id number] [place] [address] Platelets (Bld) [#/Vol] 91 10*3/uL Low 150-400 [facility] Comment on above: Order Comment: Speci men Type: BLOOD SPECIMENOrdering Facility: [facility] Address: [address] [place] [address] Result Comment: No c lot detected.Results checked and verified. Performed By: #### 5 7021-8 ####[facility] LABIA [id number] [place] [address] RBC (Bld) [#/Vol] 2.78 10*6/uL Low 4.20-6.00 [facility] Comment on above: Order Comment: Speci men Type: BLOOD SPECIMENOrdering Facility: [facility] Address: [address] [place] [address] Performed By: #### 5 7021-8 ####[facility] LABIA [id number] [place] [address] WBC (Bld) [#/Vol] 4.31 10*3/uL Normal 3.70-11.00 [facility] Comment on above: Order Comment: Speci men Type: BLOOD SPECIMENOrdering Facility: [facility] Address: [address] [place] [address] Performed By: #### 5 7021-8 ####[facility] LABCLIA [id number] [place] [address] Comprehensive metabolic 2000 panelOrdered By: Mukesh Donohue on 01-15-2024 Albumin [Mass/Vol] 3.8 g/dL Low 3.9 - 4.9 g/dL [facility] ALP [Catalytic activity/Vol] 66 U/L 38 - 113 U/L [facility] ALT [Catalytic activity/Vol] 18 U/L 10 - 54 U[facility] Anion gap [Moles/Vol] 12 mmol/L 8 - 15 mmol/L [facility] AST [Catalytic activity/Vol] 17 U/L 14 - 40 U/L [facility] Bilirubin [Mass/Vol] 0.2 mg/dL 0.2 - 1 .3 mg/dL [facility] Calcium [Mass/Vol] 9.0 mg/dL 8.5 - 10. 2 mg/dL [facility] Chloride [Moles/Vol] 103 mmol/L 98 - 10 7 mmol/L [facility] CO2 [Moles/Vol] 26 mmol/L 22 - 30 mmol/L [facility] Creatinine [Mass/Vol] 1.24 mg/dL High 0.73 - 1.22 mg/dL [facility] GFR/1.73 sq M.predicted among non-blacks MDRD (S/P/Bld) [Vol rate/Area] 60 mL/min/{1.73_m2} - PINF [facility] Comment on above: Estimated Glomerular Filtration Rate (eGFR) is calculated using the 2020 CKD-EPI creatinine equation. This equation utilizes serum creatinine, sex, and age as parameters. The creatinine assay has traceable calibration to isotope dilution-mass spectrometry. Refer to KDIGO guidelines for clinical interpretation. In patients with unstable renal function, e.g. those with acute kidney injury, the eGFR may not accurately reflect actual GFR. Glucose [Mass/Vol] 178 mg/dL High 74 - 99 mg/dL [facility] Comment on above: The [place] Diab[employer] s Association (ADA) provides guidance for cutoff values for fasting glucose and random glucose. The ADA defines fasting as no caloric intake for at least 8 hours. Fasting plasma glucose results between 100 to 125 mg/dL indicate increased risk for diabetes (prediabetes). Fasting plasma glucose results greater than or equal to 126 mg/dL meet the criteria for diagnosis of diabetes. In the absence of unequivocal hyperglycemia, results should be confirmed by repeat testing. In a patient with classic symptoms of hyperglycemia or hyperglycemic crisis, random plasma glucose results greater than or equal to 200 mg/dL meet the criteria for diagnosis of diabetes. Reference: Standards of Medical Care in Diabetes 2016, [place] Diabetes Association. Diabetes Care. 2016.39(Suppl 1). Interpretation and review of laboratory results Abnormal [facility] Potassium [Moles/Vol] 3.9 mmol/L 3.7 - 5.1 mmol/L [facility] Protein [Mass/Vol] 6.4 g/dL 6.3 - 8.0 g/dL [facility] Sodium [Moles/Vol] 141 mmol/L 136 - 144 mmol/L [facility] Urea nitrogen [Mass/Vol] 28 mg/dL High 9 - 24 mg/dL [facility] Comprehensive metabolic 2000 panelon 01-15-2024 Albumin [Mass/Vol] 3.8 g/dL Low 3.9-4.9 [facility] Comment on above: Order Comment: Speci men Type: BLOOD SPECIMENOrdering Facility: [facility] Address: [address] [place] [address] Performed By: #### 2 4323-8 ####[facility] LABCLIA [id number] [place] [address] ALP [Catalytic activity/Vol] 66 U/L Normal 38-113 [facility] Comment on above: Order Comment: Speci men Type: BLOOD SPECIMENOrdering Facility: [facility] Address: [address] [place] [address] Performed By: #### 2 4323-8 ####[facility] LABCLIA [id number] [place] [address] ALT [Catalytic activity/Vol] 18 U/L Normal 10-54 [facility] Comment on above: Order Comment: Speci men Type: BLOOD SPECIMENOrdering Facility: [facility] Address: [address] [place] [address] Performed By: #### 2 4323-8 ####[facility] LABCLIA [id number] [place] [address] Anion gap [Moles/Vol] 12 mmol/L Normal 8-15 [facility] Comment on above: Order Comment: Speci men Type: BLOOD SPECIMENOrdering Facility: [facility] Address: [address] [place] [address] Performed By: #### 2 4323-8 ####[facility] LABCLIA [id number] [place] [address] AST [Catalytic activity/Vol] 17 U/L Normal 14-40 [facility] Comment on above: Order Comment: Speci men Type: BLOOD SPECIMENOrdering Facility: [facility] Address: [address] [place] [address] Performed By: #### 2 4323-8 ####[facility] LABCLIA [id number] [place] [address] Bilirubin [Mass/Vol] 0.2 mg/dL Normal 0.2-1.3 [facility] Comment on above: Order Comment: Speci men Type: BLOOD SPECIMENOrdering Facility: [facility] Address: [address] [place] [address] Performed By: #### 2 4323-8 ####[facility] LABCLIA [id number] [place] [address] Calcium [Mass/Vol] 9.0 mg/dL Normal 8.5-10.2 [facility] Comment on above: Order Comment: Speci men Type: BLOOD SPECIMENOrdering Facility: [facility] Address: [address] [place] [address] Performed By: #### 2 4323-8 ####[facility] LABCLIA [id number] [place] [address] Chloride [Moles/Vol] 103 mmol/L Normal 98-107 [facility] Comment on above: Order Comment: Speci men Type: BLOOD SPECIMENOrdering Facility: [facility] Address: [address] [place] [address] Performed By: #### 2 4323-8 ####[facility] LABCLIA [id number] [place] [address] CO2 [Moles/Vol] 26 mmol/L Normal 22-30 [facility] Comment on above: Order Comment: Speci men Type: BLOOD SPECIMENOrdering Facility: [facility] Address: [address] [place] [address] Performed By: #### 2 4323-8 ####[facility] LABCLIA [id number] [place] [address] Creatinine [Mass/Vol] 1.24 mg/dL High 0.73-1.22 [facility] Comment on above: Order Comment: Speci men Type: BLOOD SPECIMENOrdering Facility: [facility] Address: [address] [place] [address] Performed By: #### 2 4323-8 ####[facility] LABCLIA [id number] [place] [address] Creatinine and Glomerular filtration rate.predicted panel (S/P/Bld) 60 mL/min/1.73m??? Normal >=60 [facility] Comment on above: Order Comment: Speci men Type: BLOOD SPECIMENOrdering Facility: [facility] Address: [address] [place] [address] Result Comment: Alexia mated Glomerular Filtration Rate (eGFR) is calculated using the 2020 CKD-EPI creatinine equation. This equation utilizes serum creatinine, sex, and age as parameters. The creatinine assay has traceable calibration to isotope dilution-mass spectrometry. Refer to KDIGO guidelines for clinical interpretation. In patients with unstable renal function, e.g. those with acute kidney injury, the eGFR may not accurately reflect actual GFR. Performed By: #### 2 4323-8 ####[facility] LABCLIA [id number] [place] [address] Glucose [Mass/Vol] 178 mg/dL High 74-99 [facility] Comment on above: Order Comment: Speci men Type: BLOOD SPECIMENOrdering Facility: [facility] Address: [address] [place] [address] Result Comment: The [place] Diabetes Association (ADA) provides guidance for cutoff values for fasting glucose and random glucose. The ADA defines fasting as no caloric intake for at least 8 hours. Fasting plasma glucose results between 100 to 125 mg/dL indicate increased risk for diabetes (prediabetes). Fasting plasma glucose results greater than or equal to 126 mg/dL meet the criteria for diagnosis of diabetes. In the absence of unequivocal hyperglycemia, results should be confirmed by repeat testing. In a patient with classic symptoms of hyperglycemia or hyperglycemic crisis, random plasma glucose results greater than or equal to 200 mg/dL meet the criteria for diagnosis of diabetes. Reference: Standards of Medical Care in Diabetes 2016, [place] Diabetes Association. Diabetes Care. 2016.39(Suppl 1). Performed By: #### 2 4323-8 ####[facility] LABCLIA [id number] [place] [address] Potassium [Moles/Vol] 3.9 mmol/L Normal 3.7-5.1 [facility] Comment on above: Order Comment: Speci men Type: BLOOD SPECIMENOrdering Facility: [facility] Address: [address] [place] [address] Performed By: #### 2 4323-8 ####[facility] LABCLIA [id number] [place] [address] Protein [Mass/Vol] 6.4 g/dL Normal 6.3-8.0 [facility] Comment on above: Order Comment: Speci men Type: BLOOD SPECIMENOrdering Facility: [facility] Address: [address] [place] [address] Performed By: #### 2 4323-8 ####[facility] LABCLIA [id number] [place] [address] Sodium [Moles/Vol] 141 mmol/L Normal 136-144 [facility] Comment on above: Order Comment: Speci men Type: BLOOD SPECIMENOrdering Facility: [facility] Address: [address] [place] [address] Performed By: #### 2 4323-8 ####[facility] LABCLIA [id number] [place] [address] Urea nitrogen [Mass/Vol] 28 mg/dL High 9-24 [facility] Comment on above: Order Comment: Speci men Type: BLOOD SPECIMENOrdering Facility: [facility] Address: [address] [place] [address] Performed By: #### 2 4323-8 ####[facility] LABCLIA [id number] [place] [address] No Panel InformationOrdered By: Rhona Medel on 01-15-2024 Interpretation and review of laboratory results Normal [facility] PT panel Coag (PPP)on 2023 INR Coag (PPP) [Relative time] 1.0 {INR} 0.9 - 1.3 [facility] Comment on above: Vitamin K Antagonist (VKA) Therapeutic Range: INR 2 to 3 (Target INR of 2.5) Note: For patients treated with VKA drugs, such as warfarin, the [employer] 2012 Guideline recommends a therapeutic INR range of 2 to 3 (target INR of 2.5). This recommendation includes high-risk patients with antiphospholipid syndrome with previous arterial or venous thromboembolism, current-generation mechanical or bioprosthetic aortic heart valve replacement. Note: Patients with mechanical aortic valve replacement and additional risk factors for thromboembolic events (atrial fibrillation, previous thromboembolism, LV dysfunction, hypercoagulable conditions) or an older generation mechanical AVR (i.e., ball in-Cage) or any mechanical MVR should have a INR therapeutic range of 2.5 to 3.5 (target INR of 3). Yaneth GH, et al. Chest 2012, 141:7S-47S Eliane RA, et al. JACC 2017, 70: 252-289 PT Coag (PPP) [Time] 10.8 s [facility] INR Coag (PPP) [Relative time] 1.0 {INR} Normal 0.9-1.3 [facility] Comment on above: Order Comment: Speci men Type: BLOOD SPECIMEN [facility] Address: [address] [place] [address] Result Comment: Ayde min K Antagonist (VKA) Therapeutic Range: INR 2 to 3 (Target INR of 2.5) Note: For patients treated with VKA drugs, such as warfarin, the [employer] 2012 Guideline recommends a therapeutic INR range of 2 to 3 (target INR of 2.5). This recommendation includes high-risk patients with antiphospholipid syndrome with previous arterial or venous thromboembolism, current-generation mechanical or bioprosthetic aortic heart valve replacement. Note: Patients with mechanical aortic valve replacement and additional risk factors for thromboembolic events (atrial fibrillation, previous thromboembolism, LV dysfunction, hypercoagulable conditions) or an older generation mechanical AVR (i.e., ball in-Cage) or any mechanical MVR should have a INR therapeutic range of 2.5 to 3.5 (target INR of 3). Yaneth VENEGAS, et al. Chest 2012, 141:7S-47S Eliane RA, et al. [facility] 2017, 70: 252-289 Performed By: #### 2 4323-8 #### [facility] CLIA [id number] [address] [place] [address] PT Coag (PPP) [Time] 10.8 s Normal 9.7-13.0 [facility] Comment on above: Order Comment: Speci men Type: BLOOD SPECIMEN [facility] Address: [address] [place] [id number] Performed By: #### 2 4323-8 #### [facility] CLIA [id number] [address] [place] [address] aPTT Coag (PPP) [Time]Ordere d By: Rhona Medel on 01-15-2024 Unfractionated Hepar in Therapeutic Ranges: Standard Heparin Nomogram: 53 to 78 seconds (anti-Xa level of 0.3 to 0.7 U/ml) Low Dose/ACS Nomogram: 49 to 67 seconds (anti-Xa level of 0.2 to 0.5 U/ml) Stroke Treatment Nomogram: 49 to 67 seconds (anti-Xa level of 0.2 to 0.5 U/ml) Note: The APTT therapeutic range has been determined for the current lot of laboratory APTT reagent in use throughout the [facility]. [facility] aPTT PPPon 01-15-2024 aPTT Coag (PPP) [Time] 27.3 s Normal 23.0-32.4 [facility] [facility] Comment on above: Order Comment: Speci men Type: BLOOD SPECIMEN [facility] Address: [address] [place] [address] Result Comment: Froz en Plasma Aliquot Performed By: #### 2 4323-8 #### [facility] CLIA [id number] [address] [place] [address] CBC W Auto Differential pane l (Bld)on 01-08-2024 Basophils (Bld) [#/Vol] 10*3/uL Normal <0.11 [facility] Comment on above: Order Comment: Speci men Type: BLOOD SPECIMENOrdering Facility: [facility] Address: [address] [place] [address] Performed By: #### 5 7021-8 ####[facility]CLIA [id number] [place] [address] Basophils/100 WBC (Bld) 0.1 % Normal [facility] Comment on above: Order Comment: Speci men Type: BLOOD SPECIMENOrdering Facility: [facility] Address: [address] [place] [address] Performed By: #### 5 7021-8 ####[facility]CLIA [id number] [place] [address] Differential cell count method Nom (Bld) Auto Normal [facility] Comment on above: Order Comment: Speci men Type: BLOOD SPECIMENOrdering Facility: [facility] Address: [address] [place] [address] Performed By: #### 5 7021-8 ####[facility]CLIA [id number] [place] [address] Eosinophils (Bld) [#/Vol] 10*3/uL Normal <0.46 [facility] Comment on above: Order Comment: Speci men Type: BLOOD SPECIMENOrdering Facility: [facility] Address: [address] [place] [address] Performed By: #### 5 7021-8 ####[facility]CLIA [id number] [place] [address] Eosinophils/100 WBC (Bld) 0.2 % Normal [facility] Comment on above: Order Comment: Speci men Type: BLOOD SPECIMENOrdering Facility: [facility] Address: [address] [place] [address] Performed By: #### 5 7021-8 ####[facility]CLIA [id number] [place] [address] Erythrocyte distribution width (RBC) [Ratio] 18.0 % High 11.5-15.0 [facility] Comment on above: Order Comment: Speci men Type: BLOOD SPECIMENOrdering Facility: [facility] Address: [address] [place] [address] Performed By: #### 5 7021-8 ####[facility]CLIA [id number] [place] [address] Hematocrit (Bld) [Volume fraction] 29.9 % Low 39.0-51.0 [facility] Comment on above: Order Comment: Speci men Type: BLOOD SPECIMENOrdering Facility: [facility] Address: [address] [place] [address] Performed By: #### 5 7021-8 ####[facility]CLIA [id number] [place] [address] Hemoglobin (Bld) [Mass/Vol] 9.9 g/dL Low 13.0-17.0 [facility] Comment on above: Order Comment: Speci men Type: BLOOD SPECIMENOrdering Facility: [facility] Address: [address] [place] [address] Performed By: #### 5 7021-8 ####[facility]CLIA [id number] [place] [address] Immature granulocytes (Bld) [#/Vol] 0.03 10*3/uL Normal <0.10 [facility] Comment on above: Order Comment: Speci men Type: BLOOD SPECIMENOrdering Facility: [facility] Address: [address] [place] [address] Performed By: #### 5 7021-8 ####[facility]CLIA [id number] [place] [address] Immature granulocytes/100 WBC (Bld) 0.4 % Normal [facility] Comment on above: Order Comment: Speci men Type: BLOOD SPECIMENOrdering Facility: [facility] Address: [address] [place] [address] Performed By: #### 5 7021-8 ####[facility]CLIA [id number] [place] [address] Lymphocytes (Bld) [#/Vol] 0.94 10*3/uL Low 1.00-4.00 [facility] Comment on above: Order Comment: Speci men Type: BLOOD SPECIMENOrdering Facility: [facility] Address: [address] [place] [address] Performed By: #### 5 7021-8 ####[facility]CLIA [id number] [place] [address] Lymphocytes/100 WBC (Bld) 11.4 % Normal [facility] Comment on above: Order Comment: Speci men Type: BLOOD SPECIMENOrdering Facility: [facility] Address: [address] [place] [address] Performed By: #### 5 7021-8 ####[facility] LABIA [id number] [place] [address] MCH (RBC) [Entitic mass] 32.4 pg Normal 26.0-34.0 [facility] Comment on above: Order Comment: Speci men Type: BLOOD SPECIMENOrdering Facility: [facility] Address: [address] [place] [address] Performed By: #### 5 7021-8 ####[facility]CLIA [id number] [place] [address] MCHC (RBC) [Mass/Vol] 33.1 g/dL Normal 30.5-36.0 [facility] Comment on above: Order Comment: Speci men Type: BLOOD SPECIMENOrdering Facility: [facility] Address: [address] [place] [address] Performed By: #### 5 7021-8 ####[facility]CLIA [id number] [place] [address] MCV (RBC) [Entitic vol] 97.7 fL Normal 80.0-100.0 [facility] Comment on above: Order Comment: Speci men Type: BLOOD SPECIMENOrdering Facility: [facility] Address: [address] [place] [address] Performed By: #### 5 7021-8 ####[facility]CLIA [id number] [place] [address] Monocytes (Bld) [#/Vol] 0.97 10*3/uL High <0.87 [facility] Comment on above: Order Comment: Speci men Type: BLOOD SPECIMENOrdering Facility: [facility] Address: [address] [place] [address] Performed By: #### 5 7021-8 ####[facility]CLIA [id number] [place] [address] Monocytes/100 WBC (Bld) 11.8 % Normal [facility] Comment on above: Order Comment: Speci men Type: BLOOD SPECIMENOrdering Facility: [facility] Address: [address] [place] [address] Performed By: #### 5 7021-8 ####[facility]CLIA [id number] [place] [address] Neutrophils (Bld) [#/Vol] 6.27 10*3/uL Normal 1.45-7.50 [facility] Comment on above: Order Comment: Speci men Type: BLOOD SPECIMENOrdering Facility: [facility] Address: [address] [place] [address] Performed By: #### 5 7021-8 ####[facility]CLIA [id number] [place] [address] Neutrophils/100 WBC (Bld) 76.1 % Normal [facility] Comment on above: Order Comment: Speci men Type: BLOOD SPECIMENOrdering Facility: [facility] Address: [address] [place] [address] Performed By: #### 5 7021-8 ####[facility]CLIA [id number] [place] [address] Nucleated RBC (Bld) [#/Vol] 10*3/uL Normal <0.01 [facility] Comment on above: Order Comment: Speci men Type: BLOOD SPECIMENOrdering Facility: [facility] Address: [address] [place] [address] Performed By: #### 5 7021-8 ####[facility]CLIA [id number] [place] [address] Nucleated RBC/100 WBC (Bld) [Ratio] 0.0 /100 WBC Normal [facility] Comment on above: Order Comment: Speci men Type: BLOOD SPECIMENOrdering Facility: [facility] Address: [address] [place] [address] Performed By: #### 5 7021-8 ####[facility]CLIA [id number] [place] [address] Platelet mean volume (Bld) [Entitic vol] 11.2 fL Normal 9.0-12.7 [facility] Comment on above: Order Comment: Speci men Type: BLOOD SPECIMENOrdering Facility: [facility] Address: [address] [place] [address] Performed By: #### 5 7021-8 ####[facility] LABIA [id number] [place] [address] Platelets (Bld) [#/Vol] 222 10*3/uL Normal 150-400 [facility] Comment on above: Order Comment: Speci men Type: BLOOD SPECIMENOrdering Facility: [facility] Address: [address] [place] [address] Performed By: #### 5 7021-8 ####[facility]IA [id number] [place] [address] RBC (Bld) [#/Vol] 3.06 10*6/uL Low 4.20-6.00 [facility] Comment on above: Order Comment: Speci men Type: BLOOD SPECIMENOrdering Facility: [facility] Address: [address] [place] [address] Performed By: #### 5 7021-8 ####[facility] [id number] [place] [address] WBC (Bld) [#/Vol] 8.24 10*3/uL Normal 3.70-11.00 [facility] Comment on above: Order Comment: Speci men Type: BLOOD SPECIMENOrdering Facility: [facility] Address: [address] [place] [address] Performed By: #### 5 7021-8 ####[facility] [id number] [place] [address] CNOVSPon 01-08-2024 CNOVSP Visit (SP) Office ([facility]) JOLLY SIERRA ([id number]) 1945 M Date Time Provider Department 01/08/24 9:00 AM FAISAL DASILVA During your visit today, we recorded the following information about you: Temperature Pulse Respiration Blood pressure 97.7 degrees 83/minute 16/minute 139/68 Weight Height 85.3 kg 1.745 m Faisal Dasilva MD 01/08/2024 8:36 PM Signed PATIENT NAME: Jolly Sierra DATE: 01/08/2024 PRIMARY CARE PHYSICIAN: Jose J Donaldson Jr, DO OTHER PHYSICIANS: Dr. Jason Will, Dr. Antonio Gary Portions of this encounter note have been copied from the note from 12/24/2023 and has been updated where appropriate, and reflect my current medical decision making from today. CC: This is a 78 year old male with recently diagnosed bladder cancer, seen for scheduled follow-up. INTERM HISTORY: At the patient's last visit here he was not feeling well, and labs revealed slight increased BUN/creatinine. He received gemcitabine as scheduled, but we elected to hold cisplatin. Since then he has felt somewhat better. Energy and appetite back to normal. Still mild leg swelling, but not severe. MEDICATIONS: Current Outpatient Medications Medication Sig doxycycline monohydrate 100 mg tablet nitrofurantoin monohydrate and macrocrystal (MACROBID) 100 mg capsule ferrous sulfate (IRON) 325 mg (65 mg iron) tablet Take 325 mg by mouth. ondansetron (ZOFRAN) 8 mg tablet Take 1 tablet by mouth every 8 hours as needed for nausea/vomiting. prochlorperazine (COMPAZINE) 10 mg tablet Take 1 tablet by mouth every 6 hours as needed. ramipril (ALTACE) 10 mg capsule Take 10 mg by mouth once daily. No current facility-administered medications for this visit. ALLERGIES: ALLERGIES No Known Allergies PAST MEDICAL HISTORY: PAST MEDICAL HISTORY No date: HLD (hyperlipidemia) No date: HTN (hypertension) No date: Neurogenic bladder PAST SURGICAL HISTORY: PAST SURGICAL HISTORY No date: CYSTOSCOPY 2006: PAST SURGICAL HISTORY OF Comment: bladder surgery No date: PAST SURGICAL HISTORY OF Comment: Robotic Laproscopic Cystoplasty bladder augmentation with stent FAMILY HISTORY: FAMILY HISTORY Problem Relation Age of Onset Heart disease Father SOCIAL HISTORY: Social History Tobacco Use Smoking status: Never Passive exposure: Never Smokeless tobacco: Never Vaping Use Vaping status: Never Used Substance Use Topics Alcohol use: Not Currently Drug use: Never COMPLETE REVIEW OF SYSTEMS: CONSTITUTION: Negative for pain, fatigue, weight loss, or appetite loss. EENT: Negative for mouth soreness, antibiotics use, epistaxis, visual problems, neck or facial swelling, fever/chills, bleeding gums, or hearing loss. CV: Negative for edema, calf swelling, palpitations, or chest pain. RESPIRATORY: Negative for cough, SOB, hemoptysis, or wheezing. GI: Negative for nausea/vomiting, heartburn, vomiting blood, dysphasia, diarrhea, blood in stool, constipation, early satiety, PICA, vegetarian, poor nutrition, abdominal fullness, or abdominal pain. NEUROLOGICAL: Negative for numbness/tingling, dizziness, gait disturbance, headache, speech disturbance, tremor, hemiparesis/sensory loss, or change in mental status. MUSCULOSKELETAL: Negative for joint pain, joint swelling, or proximal muscle weakness. SKIN: Negative for hair loss, bruising, nail changes, rash, itching, pallor, or jaundice. ENDO/URO: Negative for hot flashes, cold or heat intolerance, urinary frequency, urinary hesitancy, menorrhagia, or hematuria. PSYCH: Negative for anxiety, depression, or other. PHYSICAL EXAM: BP 139/68 Pulse 83 Temp 36.5 ?C (97.7 ?F) (Temporal) Resp 16 Ht 174.5 cm (5' 8.7 ) Wt 85.3 kg (188 lb 0.8 oz) SpO2 98% BMI 28.01 kg/m? General: Alert and oriented, no distress, pleasant and cooperative. Heart: Regular, normal S1 and S2, no murmurs, rubs, or gallops Lungs: Clear to auscultation bilaterally Abdomen: Benign Extremities: Feet/ankles without edema, right medial antecub with small area of swelling, no redness or warmth PATHOLOGY: 09/06/2023 Robotic bladder diverticulectomy and right pelvic lymph node dissection. A. Urinary bladder, neck of diverticulum, excision: - Benign bladder mucosa and muscularis propria. B. Lymph nodes, right pelvic, regional resection: - Two lymph nodes, negative for malignancy (0/2). C. 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 - Margins are negative for tumor. LABS: Hemoglobin (g/dL) Date Value 01/08/2024 9.9 Hematocrit (%) Date Value 01/08/2024 29.9 WBC (k/uL) Date Value 01/08/2024 8.24 Platelet Count (k/uL) Date Value 01/08/2024 222 RADIOLOGY/OTHER STUDIES: 10/16/2023 PET scan (more content not included)... Normal [facility] Comprehensive metabolic 2000 panelon 01-08-2024 Albumin [Mass/Vol] 4.0 g/dL Normal 3.9-4.9 [facility] Comment on above: Order Comment: Speci men Type: BLOOD SPECIMENOrdering Facility: [facility] Address: [address] [place] [address] Performed By: #### 1 9123-9 ####[facility] LABCLIA [id number] [place] [address]#### 97439-8 ####[facility] LABCLIA [id number] [address] LABCLIA [id number] [place] [address] [place] ALP [Catalytic activity/Vol] 85 U/L Normal 38-113 [facility] Comment on above: Order Comment: Speci men Type: BLOOD SPECIMENOrdering Facility: [facility] Address: [address] [place] [address] Performed By: #### 1 9123-9 ####[facility] LABCLIA [id number] [place] [id number]#### 55145-2 ####[facility] LABCLIA [id number] [place] [id number]CLIA [id number] [place] [address] [place] ALT [Catalytic activity/Vol] 7 U/L Low 10-54 [facility] Comment on above: Order Comment: Speci men Type: BLOOD SPECIMENOrdering Facility: [facility] Address: [address] [place] [address] Performed By: #### 1 9123-9 ####[facility] LABCLIA [id number] [place] [address]#### 00951-4 ####[facility] LABCLIA [id number] [place] [id number] LABCLIA [id number] [place] [address] [place] Anion gap [Moles/Vol] 18 mmol/L High 8-15 [facility] Comment on above: Order Comment: Speci men Type: BLOOD SPECIMENOrdering Facility: [facility] Address: [address] [place] [address] Performed By: #### 1 9123-9 ####[facility] LABCLIA [id number] [place] [id number]#### 54810-5 ####[facility] LABCLIA [id number] [place] [id number] LABCLIA [id number] [place] [address] [place] AST [Catalytic activity/Vol] 13 U/L Low 14-40 [facility] Comment on above: Order Comment: Speci men Type: BLOOD SPECIMENOrdering Facility: [facility] Address: [address] [place] [address] Performed By: #### 1 9123-9 ####[facility] LABCLIA [id number] [place] [address]#### 57603-9 ####[facility] LABCLIA [id number] [place] [id number] LABCLIA [id number] [place] [address] [place] Bilirubin [Mass/Vol] 0.4 mg/dL Normal 0.2-1.3 [facility] Comment on above: Order Comment: Speci men Type: BLOOD SPECIMENOrdering Facility: [facility] Address: [address] [place] [address] Performed By: #### 1 9123-9 ####[facility] LABCLIA [id number] [place] [address]#### 59182-8 ####[facility] LABCLIA [id number] [place], [place] [address]VHKYVSUGXPARMA [facility]CLIA [id number] [place] [address] [place] Calcium [Mass/Vol] 9.0 mg/dL Normal 8.5-10.2 [facility] Comment on above: Order Comment: Speci men Type: BLOOD SPECIMENOrdering Facility: [facility] Address: [address] [place] [address] Performed By: #### 1 9123-9 ####[facility] LABCLIA [id number] [place] [address]#### [id number] ####[facility] LABCLIA [id number] [place], [place] [address]SYXVWJWLBPARMA [facility] LABCLIA [id number] [place] [address] [place] Chloride [Moles/Vol] 104 mmol/L Normal 98-107 [facility] Comment on above: Order Comment: Speci men Type: BLOOD SPECIMENOrdering Facility: [facility] Address: [address] [place], [place] [address] Performed By: #### 1 9123-9 ####[facility] LABCLIA [id number] [place] [address]#### [id number] ####[facility] LABCLIA [id number] [place], [place] [address]TPPYABFRGPARMA [facility] LABCLIA [id number] [place] [address] [place] CO2 [Moles/Vol] 21 mmol/L Low 22-30 [facility] Comment on above: Order Comment: Speci men Type: BLOOD SPECIMENOrdering Facility: [facility] Address: [address] [place] [address] Performed By: #### 1 9123-9 ####[facility] LABCLIA [id number] [place] [address]#### 70127-7 ####[facility] LABCLIA [id number] [place] [id number] LABCLIA [id number] [place] [address] [place] Creatinine [Mass/Vol] 1.08 mg/dL Normal 0.73-1.22 [facility] Comment on above: Order Comment: Speci men Type: BLOOD SPECIMENOrdering Facility: [facility] Address: [address] [place] [address] Performed By: #### 1 9123-9 ####[facility] LABCLIA [id number] [place] [address]#### 69846-6 ####[facility] LABCLIA [id number] [place] [id number] LABCLIA [id number] [place] [address] [place] Creatinine and Glomerular filtration rate.predicted panel (S/P/Bld) 70 mL/min/1.73m??? Normal >=60 [facility] Comment on above: Order Comment: Speci men Type: BLOOD SPECIMENOrdering Facility: [facility] Address: [address] [place] [address] Result Comment: Alexia mated Glomerular Filtration Rate (eGFR) is calculated using the 2020 CKD-EPI creatinine equation. This equation utilizes serum creatinine, sex, and age as parameters. The creatinine assay has traceable calibration to isotope dilution-mass spectrometry. Refer to KDIGO guidelines for clinical interpretation. In patients with unstable renal function, e.g. those with acute kidney injury, the eGFR may not accurately reflect actual GFR. Performed By: #### 1 9123-9 ####[facility] LABCLIA [id number] [place] [id number]#### 46865-1 ####[facility] LABCLIA [id number] [place] [id number] LABCLIA [id number] [place] [address] [place] [facility] Glucose [Mass/Vol] 136 mg/dL High 74-99 [facility] Comment on above: Order Comment: Speci men Type: BLOOD SPECIMENOrdering Facility: [facility] Address: [address] [place] [address] Result Comment: The [place] Diabetes Association (ADA) provides guidance for cutoff values for fasting glucose and random glucose. The ADA defines fasting as no caloric intake for at least 8 hours. Fasting plasma glucose results between 100 to 125 mg/dL indicate increased risk for diabetes (prediabetes). Fasting plasma glucose results greater than or equal to 126 mg/dL meet the criteria for diagnosis of diabetes. In the absence of unequivocal hyperglycemia, results should be confirmed by repeat testing. In a patient with classic symptoms of hyperglycemia or hyperglycemic crisis, random plasma glucose results greater than or equal to 200 mg/dL meet the criteria for diagnosis of diabetes. Reference: Standards of Medical Care in Diabetes 2016, [place] Diabetes Association. Diabetes Care. 2016.39(Suppl 1). Performed By: #### 1 9123-9 ####[facility] LABCLIA [id number] [place] [id number]#### 86565-1 ####[facility] LABCLIA [id number] [place], [place] [address]QPVXZYHHTPARMA [facility] LABCLIA [id number] [place] [address] [place] Potassium [Moles/Vol] 4.8 mmol/L Normal 3.7-5.1 [facility] Comment on above: Order Comment: Speci men Type: BLOOD SPECIMENOrdering Facility: [facility] Address: [address] [place] [address] Performed By: #### 1 9123-9 ####[facility] LABCLIA [id number] [place] [address]#### 54772-2 ####[facility] LABCLIA [id number] [place], [place] [address]VAGMLHYVYPARMA [facility] LABCLIA [id number] [place] [address] [place] Protein [Mass/Vol] 6.5 g/dL Normal 6.3-8.0 [facility] Comment on above: Order Comment: Speci men Type: BLOOD SPECIMENOrdering Facility: [facility] Address: [address] [place] [address] Performed By: #### 1 9123-9 ####[facility] LABCLIA [id number] [place] [address]#### 02355-8 ####[facility] LABCLIA [id number] [place], [place] [address]EQASYARSPPARMA [facility] LABCLIA [id number] [place] [address] [place] Sodium [Moles/Vol] 143 mmol/L Normal 136-144 [facility] Comment on above: Order Comment: Speci men Type: BLOOD SPECIMENOrdering Facility: [facility] Address: [address] [place] [address] Performed By: #### 1 9123-9 ####[facility] LABCLIA [id number] [place] [address]#### 27075-6 ####[facility] LABCLIA [id number] [place], [place] [address]BTLCWRHXMPARMA [facility] LABCLIA [id number] [place] [address] [place] Urea nitrogen [Mass/Vol] 24 mg/dL Normal 9-24 [facility] Comment on above: Order Comment: Speci men Type: BLOOD SPECIMENOrdering Facility: [facility] Address: [address] [place] [address] Performed By: #### 1 9123-9 ####[facility] LABCLIA [id number] [place] [id number]#### 93352-5 ####[facility] LABCLIA [id number] [place] [id number] LABCLIA [id number] [place] [address] [place] Magnesium SerPl-mCncon 01-07 Magnesium [Mass/Vol] 1.8 mg/dL Normal 1.7-2.3 [facility] Comment on above: Order Comment: Speci men Type: BLOOD SPECIMENOrdering Facility: [facility] Address: [address] [place] [address] Performed By: #### 1 9123-9 ####[facility] LABCLIA [id number] [place] [id number]#### 90297-4 ####[facility] LABCLIA [id number] [place], [place] [id number] LABIA [id number] [place] [address] [place] CNOVon 01-04-2024 CNOV Office Visit (URFMOB ) JOLLY SIERRA ([id number]) 1945 M Date Time Provider Department 01/04/24 2:00 PM JASON WILL During your visit today, we recorded the following information about you: Jesus Alberto Baird MA 01/04/2024 2:13 PM Signed UNIVERSAL PROTOCOL / SAFETY CHECKLIST Procedure to be Performed: cystscopy Sign In: A Moment of CARE was completed. Personnel directly involved with the procedure wore the appropriate PPE (Personal Protective Equipment). Special equipment: cystoscope Patient/Surrogate Stated/Verified: PATIENT VERIFIED(optional for EMERGENT procedures): Patient name, Date of , Relevant allergies, and The intended procedure Time Out Communication: Intended patient and procedure match the source documents. Consent documented and matches the intended procedure. Relevant labs, photos, and/or imaging studies have been reviewed. Correct side/site marked and visible. Medications required for procedure verified. Fire risk assessed and interventions discussed. No implant(s) inserted. Sign Out: SIGN OUT (optional for EMERGENT procedures): No specimen collected. All instruments, equipment, possible retained foreign bodies accounted for. Post-procedure follow-up management communicated and Plan of Care Visit completed when applicable. Jesus Alberto Baird MA PRE PROCEDURE ASSESSMENT- Cysto Procedure Indication: Cystoscopy Latex Allergy: No Allergies reviewed and updated. Yes Pre-Procedure Vital Signs: BP: 152/85 Pulse: 71 Heart valve replacement: No Joint replacement: No Back Office UA otained: yes PROCEDURE PREP-Cysto Patient ID with two(2)identifiers verified by: Jesus Alberto Baird MA Pre-Procedure Antibiotics: Bactrim DS 160mg-800mg orally, given during visit @ 1337 , by Jesus Alberto Baird MA Patient Prep: Betadine Scrub to perineum and placement of Sterile Drape. COMPLETED Anesthetic Given:10 cc 2% Lidocaine jelly and Administered by MD - see Procedure Physician Note. Jesus Alberto Baird MA UNIVERSAL PROTOCOL / SAFETY CHECKLIST Procedure to be performed: Cystoscopy Sign in Communication: Completed Time Out: Team Confirms the Correct Patient, Correct Procedure, Correct Site and Site Marking, Correct Position (if applicable). Sign Out Discussion: Completed Jesus Alberto Baird MA POST PROCEDURE NURSE ASSESSMENT Present along with physician during procedure exam. Jesus Alberto Baird MA Instruction sheet given and reviewed and patient verbalizes understanding: yes Post Procedure Antibiotic: none Current pain intensity is 0 on a 0-10 pain scale. Jesus Alberto Baird MA AMBULATORY PATIENT EDUCATION THE FOLLOWING WAS EVALUATED Motivation To Learn: Eager Family/Significant Other Support: Unable to assess - Family not present Cognitive Ability: Alert/Oriented Method of Instruction: Individual instruction Written instruction/Handouts Verbal instruction The Following Influencing Factors Were Barriers To This Education Session: None The Following Physical Limitations Were Barriers To This Education Session: None Instruction Provided To: Patient Circulation Man Present: not applicable Discipline: Nursing Learning Topic: SURVIVAL SKILLS: Complication Prevention Symptom Management Patient Evaluation: Verbalizes understanding: Yes Supplemental Material Given: Written Material Instructed By Jesus Alberto Baird MA In Department Urology . Jason Will MD 01/04/2024 2:31 PM Signed HISTORY: Jolly Sierra is a 78 yr old male with a hx of HTN, UTI, BPH, neurogenic bladder, and HLD presenting for a hx of HG papillary urothelial carcinoma with squamous differentiation and macroscopic invasion of perivesical fat s/p partial cystectomy on 09/06/2023. Presenting for cystoscopy. Presented for stent removal cystoscopy on 10/05/2023, at which time the plan was to follow-up with oncology with a PET scan and to have an office cystoscopy in 3 months. Recommended self-catheterize. He did have an episode of pink urine approximately a week ago. The patient is on chemotherapy with cisplatin plus gemcitabine 2 weeks on [address] Dasilva. PET Scan 10/16/2023 IMPRESSION: HEAD/NECK: * No FDG avid neoplastic process. * Diffusely enlarged thyroid demonstrating heterogeneous FDG avidity with multiple large thyroid nodules measuring up to 2.9 cm. Correlate with serology and/or thyroid ultrasound for TI-RADS ultrasound criteria evaluation and decision support regarding observation versus tissue sampling. ? CHEST: * No FDG avid neoplastic process. ABDOMEN/PELVIS: * Prior RIGHT urinary bladder diverticulectomy with residual bladder wall thickening in the operative bed and extending along the urinary bladder fundus. Degree of FDG avidity is poorly assessed due to adjacent urinary bladder luminal FDG avidity. Continued attention on (more content not included)... Normal [facility] CYTOLOGY NON-GYNon CASE REPORT Normal [facility] Comment on above: Order Comment: Speci men Type: URINE SPECIMEN Ordering Facility: [facility] Address: [address] [place] [address] Result Comment: [facility] Cytology Report Case: [id number] Authorizing Provider: Jason Will MD Collected: 01/04/2024 02:22 PM Ordering Location: Urology Received: 01/04/2024 04:13 PM Pathologist: Daphnie Herrera MD Specimen: Urine, Midstream Performed By: #### C YTONON #### [facility] CLIA [id number] [address] [place] [address] CLINICAL HISTORY History of bladder cancer Normal [facility] Comment on above: Order Comment: Speci men Type: URINE SPECIMEN Ordering Facility: [facility] Address: [address] [place] [address] Performed By: #### C YTONON #### [facility] CLIA [id number] [address] [place] [address] FINAL DIAGNOSIS Normal [facility] Comment on above: Order Comment: Speci men Type: URINE SPECIMEN Ordering Facility: [facility] Address: [address] [place] [address] Result Comment: A - Urine, Midstream, Urine Negative for high-grade urothelial carcinoma. Acute inflammation. Blood. Performed By: #### C YTONON #### [facility] CLIA [id number] [address] [place] [address] OF [facility] FINAL PERFORMING LAB Normal [facility] Comment on above: Order Comment: Speci men Type: URINE SPECIMEN Ordering Facility: [facility] Address: [address] [place] [address] Result Comment: Tech nical component, minister helper screening performed at [facility], [address] [place] [address] CLIA# [id number] Diagnostic interpretation performed at [facility], [address] [place] [address] CLIA# [id number] Rehabilitation Team Lead: Marco Antonio Russell M.D. Performed By: #### C YTONON #### [facility] CLIA [id number] STATES OF [facility] GROSS DESCRIPTION Normal [facility] Comment on above: Order Comment: Speci men Type: URINE SPECIMEN Ordering Facility: [facility] Address: [address] [place] [address] Result Comment: A. U rine, Midstream 9 cc cloudy yellow fluid. ThinPrep prepared. Performed By: #### C YTONON #### [facility] CLIA [id number] [place] UA DIP, URINE (POC)on 2023 BILIRUBIN UA (POCT) Negative Negative [facility] CLARITY UA (POCT) [facility]y [facility] COLOR UA (POCT) Yellow [facility] GLUCOSE UA (POCT) 100 mg/dL Abnormal Negative [facility] Hemoglobin Ql (U) Moderate Abnormal Negative [facility] Interpretation and review of laboratory results Abnormal [facility] KETONE UA (POCT) Negative Negative mg/dL [facility] LEUKOCYTES UA (POCT) Trace Abnormal Negative [facility] NITRITE UA (POCT) Negative Negative [facility] PH UA (POCT) 5.5 4.5 - 8.0 [facility] Protein Ql (U) 30 mg/dL Abnormal Negative [facility] SPECIFIC GRAVITY UA (POCT) 1.025 1.005 - 1.030 [facility] UROBILINOGEN UA (POCT) 0.2 Normal E.U./dL [facility] Location:[facility], [address] [place], [place], [address] [place] [address] POINT OF CARE [facility] FERRITINon 12-17-2023 Ferritin [Mass/Vol] 507.0 ng/mL 30.3 - 5 65.7 ng/mL [facility] Ferritin [Mass/Vol]on 2023 Interpretation and review of laboratory results Normal [facility] Iron and Iron binding capaci ty panelon 12-17-2023 Interpretation and review of laboratory results Normal [facility] Iron [Mass/Vol] 51 ug/dL 41 - 186 ug/dL [facility] Iron binding capacity [Mass/Vol] 270 ug/dL 232 - 386 ug/dL [facility] Iron/TIBC [Molar ratio] 18.9 % 15.0 - 57.0 % [facility] Basic metabolic 2000 panelOr dered By: Amarilis Robertson on 12-03-2023 Anion gap [Moles/Vol] 12 mmol/L 8 - 15 mmol/L [facility] Calcium [Mass/Vol] 9.5 mg/dL 8.5 - 10. 2 mg/dL [facility] Chloride [Moles/Vol] 105 mmol/L 98 - 10 7 mmol/L [facility] CO2 [Moles/Vol] 26 mmol/L 22 - 30 mmol/L [facility] Creatinine [Mass/Vol] 1.09 mg/dL 0.73 - 1.22 mg/dL [facility] GFR/1.73 sq M.predicted among non-blacks MDRD (S/P/Bld) [Vol rate/Area] 69 mL/min/{1.73_m2} - PINF [facility] Comment on above: Estimated Glomerular Filtration Rate (eGFR) is calculated using the 2020 CKD-EPI creatinine equation. This equation utilizes serum creatinine, sex, and age as parameters. The creatinine assay has traceable calibration to isotope dilution-mass spectrometry. Refer to KDIGO guidelines for clinical interpretation. In patients with unstable renal function, e.g. those with acute kidney injury, the eGFR may not accurately reflect actual GFR. Glucose [Mass/Vol] 126 mg/dL High 74 - 99 mg/dL [facility] Comment on above: The [place] Diab[employer] s Association (ADA) provides guidance for cutoff values for fasting glucose and random glucose. The ADA defines fasting as no caloric intake for at least 8 hours. Fasting plasma glucose results between 100 to 125 mg/dL indicate increased risk for diabetes (prediabetes). Fasting plasma glucose results greater than or equal to 126 mg/dL meet the criteria for diagnosis of diabetes. In the absence of unequivocal hyperglycemia, results should be confirmed by repeat testing. In a patient with classic symptoms of hyperglycemia or hyperglycemic crisis, random plasma glucose results greater than or equal to 200 mg/dL meet the criteria for diagnosis of diabetes. Reference: Standards of Medical Care in Diabetes 2016, [place] Diabetes Association. Diabetes Care. 2016.39(Suppl 1). Interpretation and review of laboratory results Abnormal [facility] Potassium [Moles/Vol] 5.4 mmol/L High 3.7 - 5.1 mmol/L [facility] Sodium [Moles/Vol] 143 mmol/L 136 - 144 mmol/L [facility] Urea nitrogen [Mass/Vol] 27 mg/dL High 9 - 24 mg/dL [facility] CBC W Auto Differential pane l (Bld)on 12-03-2023 Basophils (Bld) [#/Vol] 0.03 10*3/uL [facility] Basophils/100 WBC (Bld) 0.9 % [facility] Differential cell count method Nom (Bld) Auto [facility] Eosinophils (Bld) [#/Vol] [facility] Eosinophils/100 WBC (Bld) 0.3 % [facility] Erythrocyte distribution width (RBC) [Ratio] 13.3 % 11.5 - 15.0 % [facility] Hematocrit (Bld) [Volume fraction] 33.7 % Low 39.0 - 51.0 % [facility] Hemoglobin (Bld) [Mass/Vol] 10.8 g/dL Low 13.0 - 17.0 g/dL [facility] Immature granulocytes (Bld) [#/Vol] 0.08 10*3/uL [facility] Immature granulocytes/100 WBC (Bld) 2.5 % [facility] Interpretation and review of laboratory results Abnormal [facility] Lymphocytes (Bld) [#/Vol] 1.40 10*3/uL [facility] Lymphocytes/100 WBC (Bld) 43.2 % [facility] MCH (RBC) [Entitic mass] 30.8 pg 26.0 - 34.0 pg [facility] MCHC (RBC) [Mass/Vol] 32.0 g/dL 30.5 - 36.0 g/dL [facility] MCV (RBC) [Entitic vol] 96.0 fL 80.0 - 100.0 fL [facility] Monocytes (Bld) [#/Vol] 0.23 10*3/uL [facility] Monocytes/100 WBC (Bld) 7.1 % [facility] Neutrophils (Bld) [#/Vol] 1.49 10*3/uL [facility] Neutrophils/100 WBC (Bld) 46.0 % [facility] Nucleated RBC (Bld) [#/Vol] [facility] Nucleated RBC/100 WBC (Bld) [Ratio] 0.0 % /100 WBC [facility] Platelet mean volume (Bld) [Entitic vol] 10.4 fL 9.0 - 12.7 fL [facility] Platelets (Bld) [#/Vol] 146 10*3/uL Low [facility] Comment on above: No clot detected.Res ults checked and verified. RBC (Bld) [#/Vol] 3.51 10*6/uL Low 4.20 - 6.0 0 m/uL [facility] WBC (Bld) [#/Vol] 3.24 10*3/uL Low [facility] Basic metabolic 2000 panelOr dered By: Mukesh Donohue on 11-26-2023 Anion gap [Moles/Vol] 7 mmol/L Low 8 - 15 mmol/L [facility] Calcium [Mass/Vol] 9.6 mg/dL 8.5 - 10. 2 mg/dL [facility] Chloride [Moles/Vol] 104 mmol/L 98 - 10 7 mmol/L [facility] CO2 [Moles/Vol] 26 mmol/L 22 - 30 mmol/L [facility] Creatinine [Mass/Vol] 1.12 mg/dL 0.73 - 1.22 mg/dL [facility] GFR/1.73 sq M.predicted among non-blacks MDRD (S/P/Bld) [Vol rate/Area] 67 mL/min/{1.73_m2} - PINF [facility] Comment on above: Estimated Glomerular Filtration Rate (eGFR) is calculated using the 2020 CKD-EPI creatinine equation. This equation utilizes serum creatinine, sex, and age as parameters. The creatinine assay has traceable calibration to isotope dilution-mass spectrometry. Refer to KDIGO guidelines for clinical interpretation. In patients with unstable renal function, e.g. those with acute kidney injury, the eGFR may not accurately reflect actual GFR. Glucose [Mass/Vol] 138 mg/dL High 74 - 99 mg/dL [facility] Comment on above: The [place] Diabete s Association (ADA) provides guidance for cutoff values for fasting glucose and random glucose. The ADA defines fasting as no caloric intake for at least 8 hours. Fasting plasma glucose results between 100 to 125 mg/dL indicate increased risk for diabetes (prediabetes). Fasting plasma glucose results greater than or equal to 126 mg/dL meet the criteria for diagnosis of diabetes. In the absence of unequivocal hyperglycemia, results should be confirmed by repeat testing. In a patient with classic symptoms of hyperglycemia or hyperglycemic crisis, random plasma glucose results greater than or equal to 200 mg/dL meet the criteria for diagnosis of diabetes. Reference: Standards of Medical Care in Diabetes 2016, [place] Diabetes [employer]. Diabetes Care. 2016.39(Suppl 1). Interpretation and review of laboratory results Abnormal [facility] Potassium [Moles/Vol] 4.8 mmol/L 3.7 - 5.1 mmol/L [facility] Sodium [Moles/Vol] 137 mmol/L 136 - 144 mmol/L [facility] Urea nitrogen [Mass/Vol] 26 mg/dL High 9 - 24 mg/dL [facility] CBC W Auto Differential pane l (Bld)on 11-26-2023 Basophils (Bld) [#/Vol] [facility] Basophils/100 WBC (Bld) 0.3 % [facility] Differential cell count method Nom (Bld) Auto [facility] Eosinophils (Bld) [#/Vol] 0.04 10*3/uL [facility] Eosinophils/100 WBC (Bld) 1.1 % [facility] Erythrocyte distribution width (RBC) [Ratio] 13.3 % 11.5 - 15.0 % [facility] Hematocrit (Bld) [Volume fraction] 34.2 % Low 39.0 - 51.0 % [facility] Hemoglobin (Bld) [Mass/Vol] 11.1 g/dL Low 13.0 - 17.0 g/dL [facility] Immature granulocytes (Bld) [#/Vol] [facility] Immature granulocytes/100 WBC (Bld) 0.6 % [facility] Interpretation and review of laboratory results Abnormal [facility] Lymphocytes (Bld) [#/Vol] 1.26 10*3/uL [facility] Lymphocytes/100 WBC (Bld) 34.7 % [facility] MCH (RBC) [Entitic mass] 30.8 pg 26.0 - 34.0 pg [facility] MCHC (RBC) [Mass/Vol] 32.5 g/dL 30.5 - 36.0 g/dL [facility] MCV (RBC) [Entitic vol] 95.0 fL 80.0 - 100.0 fL [facility] Monocytes (Bld) [#/Vol] 0.45 10*3/uL NINF [facility] Monocytes/100 WBC (Bld) 12.4 % [facility] Neutrophils (Bld) [#/Vol] 1.85 10*3/uL [facility] Neutrophils/100 WBC (Bld) 50.9 % [facility] Nucleated RBC (Bld) [#/Vol] NINF [facility] Nucleated RBC/100 WBC (Bld) [Ratio] 0.0 % /100 WBC [facility] Platelet mean volume (Bld) [Entitic vol] 9.7 fL 9.0 - 12.7 fL [facility] Platelets (Bld) [#/Vol] 297 10*3/uL [facility] RBC (Bld) [#/Vol] 3.60 10*6/uL Low 4.20 - 6.0 0 m/uL [facility] WBC (Bld) [#/Vol] 3.63 10*3/uL Low [facility] PET+CT Guidance for localiza tion of tumor of Skull base to mid-thigh-- W [id number] Anand 10-22-2023 IMPRESSION: HEAD/NECK: * No FDG avid neoplastic process. * Diffusely enlarged thyroid demonstrating heterogeneous FDG avidity with multiple large thyroid nodules measuring up to 2.9 cm. Correlate with serology and/or thyroid ultrasound for TI-RADS ultrasound criteria evaluation and decision support regarding observation versus tissue sampling. ? CHEST: * No FDG avid neoplastic process. ABDOMEN/PELVIS: * Prior RIGHT urinary bladder diverticulectomy with residual bladder wall thickening in the operative bed and extending along the urinary bladder fundus. Degree of FDG avidity is poorly assessed due to adjacent urinary bladder luminal FDG avidity. Continued attention on follow-up is recommended * No hypermetabolic abdominopelvic lymphadenopathy. * Nonspecific bilateral adrenal gland uptake, possibly physiologic or secondary to hyperplasia. Attention on follow-up. * Mild, diffuse radiotracer uptake within the prostate without discrete focal lesion. Correlate with PSA. * Ill-defined minimally FDG avid soft tissue attenuation in the LEFT inguinal region likely representing postoperative material given reported history of prior incarcerated LEFT inguinal hernia repair. Continued attention on follow-up. MUSCULOSKELETAL: * No FDG avid neoplastic process. Transcribe Date/Time: Oct 22 2023 9:31A Dictated by: JESUS BELL MD This examination was interpreted and the report reviewed and electronically signed by: GETACHEW BATISTA MD on Oct 22 2023 11:21AM EST Thank you for allowing us to participate in the care of your patient. Should there be any questions regarding this interpretation, please call [phone]. If you are unable to reach us at the number above, please feel free to contact [facility] at [phone]. DIVISION OF RADIOLOGY * * *Final Report* * * DATE OF EXAM: Oct 16 2023 2:46PM NRN [id number] - NM PET/CT SKULL-THIGH INIT / PROCEDURE REASON: Malignant neoplasm of overlapping sites of bladder (HCC) * * * * Physician Interpretation * * * * RESULT: EXAMINATION: BODY FDG PET-CT CLINICAL HISTORY: 78 years old Male with Malignant neoplasm of overlapping sites of bladder (HCC) . Status post robotic bladder diverticulectomy [complicated] & right pelvic lymph node dissection. 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 Margins are negative for tumor. Urinary bladder, neck of diverticulum, excision: - Benign bladder mucosa and muscularis propria. Two lymph nodes, negative for malignancy (0/2). ? INDICATION: Initial treatment strategy. TECHNIQUE: Radiopharmaceutical was administered IV followed about 60 minutes later by PET imaging from eyes to proximal thighs. Free breathing, low dose CT of the same body region was acquired without IV contrast for attenuation correction and anatomic localization. * CT Dose-Length Product (DLP): 243 mGy*cm * CT Dose Reduction Employed: Yes * Blood glucose (mg/dL): 102 * Radiopharmaceutical Dose: 10.7 mCi * Radiopharmaceutical: [id number] (FDG) COMPARISON: No previous FDG PET/CT available CORRELATION: CT Urogram 01/25/2024 RESULT: REFERENCES: SUV reference values: * Blood pool (descending aorta) activity: SUVmax 3.0 * Background liver activity: SUVmax 3.3 Frame Repairer (topogram) images: No significant findings. Notes and limitations: * Standardized uptake values indicate the highest activity concentration (SUVmax) at a given location but can be variable and are not absolute. * Physiologic/non-neopla stic uptake is common in the brain, extraocular muscles, oral cavity, tonsils, salivary glands, vocal cords, myocardium, liver, GI tract, urinary tract, and bone marrow among others. Certain regions and organ systems can have more intense uptake, which could confound or obscure some pathology. * Unenhanced imaging is limited for the evaluation of some pathology and the acquired CT was not designed to produce or replace diagnostic CT scan quality. * PET-CT is often not sensitive for pulmonary nodules less than 8 mm. HEAD AND NECK: Imaged Head: No suspicious uptake. Uptake in the palatine tonsils adjacent to prominent coarse calcification is likely inflammatory. Neck & Lymph Nodes: No abnormal uptake. Thyroid: Heterogeneously enlarged with multiple low-attenuation nodules the largest on the LEFT measuring up to 2.9 cm with diffusely increased uptake throughout the thyroid gland (SUVmax 3.9). CHEST: Lungs & Airways: No abnormal uptake. Small pulmonary nodule(s) particularly along the LEFT major fissure without increased uptake although these may be below the resolution of PET (see references). Pleura & Pericardium: No abnormal uptake. No pericardial or pleural effusion. Cardiovascular: No abnormal uptake. Thoracic aorta and coronary artery calcifications. Mediastinum & Lymph Nodes: No abnormal uptake. Chest Wall: No abnormal uptake. ABDOMEN AND PELVIS: Hepatobiliary: Heterogeneous uptake without discrete focal lesion on CT. Normal gallbladder. Spleen: No abnormal uptake. No splenomegaly. Pancreas: No abnormal uptake. Adrenals: * FDG avid right adrenal gland; with no associated mass/nodule. * FDG avid left adrenal gland, with associated mild thickening and non-FDG avid avid left adrenal nodule; lipid rich adrenal adenoma. Urinary Tract: * No abnormal uptake in the kidneys. No hydronephrosis or nephrolithiasis. * Postoperative changes of prior RIGHT bladder diverticulectomy with residual mild bladder wall thickening in this region as well as overlying the urinary bladder fundus. Degree of FDG avidity is poorly assessed due to adjacent urinary bladder luminal FDG avidity. No definite abnormal uptake in the surgical bed. GI Tract: No abnormal uptake. No dilated bowel. Peritoneum: No abnormal uptake. No ascites. Fat-containing right inguinal hernia. Vasculature: No abnormal uptake. Atherosclerotic calcifications without an abdominal aortic aneurysm. Retroperitoneum & Lymph Nodes: Ill-defined soft tissue attenuation demonstrating low-level FDG avidity in the left inguinal region (4:289, max SUV 3.2), favored to represent postoperative material given reported history of prior incarcerated LEFT inguinal hernia repair. Otherwise, no definite FDG avid abdominopelvic lymphadenopathy. Pelvis: Mildly enlarged prostate demonstrating diffuse low-level FDG uptake (4:304, max SUV 3.6). Abdominal wall: Minimal FDG uptake associated with linear scars, compatible w (more content not included)... DIVISION OF RADIOLOGY Provider, Abhi Everettarmand [facility] - 10/22/2023 * * *Final Report* * * DATE OF EXAM: Oct 16 2023 2:46PM NRN [id number] - NM PET/CT SKULL-THIGH INIT / PROCEDURE REASON: Malignant neoplasm of overlapping sites of bladder (HCC) * * * * Physician Interpretation * * * * RESULT: EXAMINATION: BODY FDG PET-CT CLINICAL HISTORY: 78 years old Male with Malignant neoplasm of overlapping sites of bladder (HCC) . Status post robotic bladder diverticulectomy [complicated] & right pelvic lymph node dissection. 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 Margins are negative for tumor. Urinary bladder, neck of diverticulum, excision: - Benign bladder mucosa and muscularis propria. Two lymph nodes, negative for malignancy (0/2). ? INDICATION: Initial treatment strategy. TECHNIQUE: Radiopharmaceutical was administered IV followed about 60 minutes later by PET imaging from eyes to proximal thighs. Free breathing, low dose CT of the same body region was acquired without IV contrast for attenuation correction and anatomic localization. * CT Dose-Length Product (DLP): 243 mGy*cm * CT Dose Reduction Employed: Yes * Blood glucose (mg/dL): 102 * Radiopharmaceutical Dose: 10.7 mCi * Radiopharmaceutical: M60-Xfeesdugxnnlxssyek (FDG) COMPARISON: No previous FDG PET/CT available CORRELATION: CT Urogram 01/25/2024 RESULT: REFERENCES: SUV reference values: * Blood pool (descending aorta) activity: SUVmax 3.0 * Background liver activity: SUVmax 3.3 Frame Repairer (topogram) images: No significant findings. Notes and limitations: * Standardized uptake values indicate the highest activity concentration (SUVmax) at a given location but can be variable and are not absolute. * Physiologic/non-neopla stic uptake is common in the brain, extraocular muscles, oral cavity, tonsils, salivary glands, vocal cords, myocardium, liver, GI tract, urinary tract, and bone marrow among others. Certain regions and organ systems can have more intense uptake, which could confound or obscure some pathology. * Unenhanced imaging is limited for the evaluation of some pathology and the acquired CT was not designed to produce or replace diagnostic CT scan quality. * PET-CT is often not sensitive for pulmonary nodules less than 8 mm. HEAD AND NECK: Imaged Head: No suspicious uptake. Uptake in the palatine tonsils adjacent to prominent coarse calcification is likely inflammatory. Neck & Lymph Nodes: No abnormal uptake. Thyroid: Heterogeneously enlarged with multiple low-attenuation nodules the largest on the LEFT measuring up to 2.9 cm with diffusely increased uptake throughout the thyroid gland (SUVmax 3.9). CHEST: Lungs & Airways: No abnormal uptake. Small pulmonary nodule(s) particularly along the LEFT major fissure without increased uptake although these may be below the resolution of PET (see references). Pleura & Pericardium: No abnormal uptake. No pericardial or pleural effusion. Cardiovascular: No abnormal uptake. Thoracic aorta and coronary artery calcifications. Mediastinum & Lymph Nodes: No abnormal uptake. Chest Wall: No abnormal uptake. ABDOMEN AND PELVIS: Hepatobiliary: Heterogeneous uptake without discrete focal lesion on CT. Normal gallbladder. Spleen: No abnormal uptake. No splenomegaly. Pancreas: No abnormal uptake. Adrenals: * FDG avid right adrenal gland; with no associated mass/nodule. * FDG avid left adrenal gland, with associated mild thickening and non-FDG avid avid left adrenal nodule; lipid rich adrenal adenoma. Urinary Tract: * No abnormal uptake in the kidneys. No hydronephrosis or nephrolithiasis. * Postoperative changes of prior RIGHT bladder diverticulectomy with residual mild bladder wall thickening in this region as well as overlying the urinary bladder fundus. Degree of FDG avidity is poorly assessed due to adjacent urinary bladder luminal FDG avidity. No definite abnormal uptake in the surgical bed. GI Tract: No abnormal uptake. No dilated bowel. Peritoneum: No abnormal uptake. No ascites. Fat-containing right inguinal hernia. Vasculature: No abnormal uptake. Atherosclerotic calcifications without an abdominal aortic aneurysm. Retroperitoneum & Lymph Nodes: Ill-defined soft tissue attenuation demonstrating low-level FDG avidity in the left inguinal region (4:289, max SUV 3.2), favored to represent postoperative material given reported history of prior incarcerated LEFT inguinal hernia repair. Otherwise, no definite FDG avid abdominopelvic lymphadenopathy. Pelvis: Mildly enlarged prostate demonstrating diffuse low-level FDG uptake (4:304, max SUV 3.6). Abdominal wall: Minimal FDG uptake associated with linear (more content not included)... [facility] PET+CT Guidance for localiza tion of tumor of Skull base to mid-thigh-- W 18F-FDG IVOrdered By: [facility] Provider on 10-22-2023 [facility] GLUCOSE, BLOOD (POC)on 10-15 Glucose [Mass/Vol] 102 mg/dL Abnormal 74 - 99 mg/dL [facility] Comment on above: Location:[facility], [address] [place] [address] , [place], [place], [facility] The Accu-Chek Inform II glucose meter has not been approved for testing on patients receiving intensive medical intervention or therapy and results from this point of care glucose test should not be used for patient management decisions in these cases. Inaccurate results may also occur from other interfering factors, such as N-acetylcysteine (blood concentrations of greater than 5mg/dL), galactose, extremes of hematocrit (<10 or >65), or high doses of ascorbic acid (vitamin C) greater than 3mg/dL. Consider alternate testing mechanisms (e.g. core lab, blood gas instrument) in the above situations. Interpretation and review of laboratory results Abnormal [facility] PET+CT Guidance for localiza tion of tumor of Skull base to mid-thigh-- W 18F-FDG Anand 10-16-2023 Radiology Study observation (narrative) [facility] Operative Reporton Operative Report [id number] 0TIFF [facility] Pathology Noteon 09-24-2023 Pathology Note [id number]#[id number] TIFF [facility] CT Kidney WO and W contrast Anand 09-03-2023 IMPRESSION: 1. Large diverticulum arising from the right posterior wall of the urinary bladder. There is asymmetric wall thickening and increased enhancement along the posterior and superior aspect of the bladder diverticulum. This is highly suspicious for urothelial carcinoma and can be correlated with cystoscopy if not already performed. No metastatic disease detected in the abdomen or pelvis. No upper tract urothelial filling defects detected. 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 Landfill Operations: PSCB Transcribe Date/Time: Sep 03 2023 2:47P Dictated by : CLNIT LATHAM MD This examination was interpreted and the report reviewed and electronically signed by: CLINT LATHAM MD on Sep 03 2023 3:08PM [facility] DIVISION OF RADIOLOGY * * *Final Report* * * DATE OF EXAM: Sep 03 2023 2:09PM [facility] 0560 - CT UROGRAM WO/W IVCON / PROCEDURE REASON: Malignant neoplasm of urinary bladder, unspecified site (HCC) * * * * Physician Interpretation * * * * EXAMINATION: CT ABDOMEN AND PELVIS WITHOUT AND WITH IV CONTRAST, INCLUDING EXCRETORY PHASE IMAGING (CT UROGRAM) 3D RECONSTRUCTIONS CLINICAL HISTORY: Malignant neoplasm of the urinary bladder.. TECHNIQUE: CT urogram protocol including unenhanced, renal parenchymal phase and excretory phase renal imaging was obtained following IV contrast. Normal saline was also administered IV. No oral contrast was given. 3D image post-processing was performed and archived at the request of the referring physician, on the CT scanner workstation without concurrent physician supervision. MQ: CTU_2 Contrast: IV: 100 ml of Omnipaque 350 Oral Contrast: None CT Radiation dose: Integrated dose-length product (DLP) for this visit = 1845 mGy*cm. CT Dose Reduction Employed: mAs-kVp adjusted based on patient size-age COMPARISON: None. RESULT: Kidneys and urinary tract: Right: No renal or ureteral calculi. No hydronephrosis or hydroureter. No upper tract urothelial filling defects or strictures. 1.9 cm cyst along the lateral upper pole of the right kidney. Small exophytic lesion arising from the lateral lower pole of the right kidney which is too small to characterize but likely represents a cyst. Left: No renal or ureteral calculi. No hydronephrosis or hydroureter. No upper tract urothelial filling defects or strictures. Bladder: Large diverticulum arising from the right posterior wall of the urinary bladder. There is asymmetric wall thickening and increased enhancement along the posterior and superior aspect of the bladder diverticulum. This is suspicious for urothelial carcinoma and can be correlated with cystoscopy if not already performed. Abdomen and Pelvis: Liver: Subcentimeter hypodense lesion in segment 2 of the liver which is too small to characterize but may represent a cyst.. Biliary: No bile duct dilation. Gallbladder is unremarkable. Spleen: No mass. No splenomegaly. Pancreas: No mass or duct dilation. 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 GI tract: No bowel obstruction. Lymph nodes: No abdominal or pelvic lymphadenopathy. Mesentery/Peritoneum: No ascites or mass. Pelvis: No mass, ascites or fluid collection. Bones and Soft Tissues: Degenerative changes. Small to moderate fat-containing right inguinal hernia. Lower thorax: Limited evaluation of the lower chest demonstrates mild segmental and subsegmental bronchiectasis in the left lower lobe with subsegmental atelectasis. Benign calcified granuloma in the lateral left lower lobe. 6 mm solid nodule in the posterior left lower lobe which appears partially calcified and likely represents a granuloma. Localizer images: No additional findings. DIVISION OF RADIOLOGY Provider, [facility] - 09/03/2023 * * *Final Report* * * DATE OF EXAM: Sep 03 2023 2:09PM [facility] 0560 - CT UROGRAM WO/W IVCON / PROCEDURE REASON: Malignant neoplasm of urinary bladder, unspecified site (HCC) * * * * Physician Interpretation * * * * EXAMINATION: CT ABDOMEN AND PELVIS WITHOUT AND WITH IV CONTRAST, INCLUDING EXCRETORY PHASE IMAGING (CT UROGRAM) 3D RECONSTRUCTIONS CLINICAL HISTORY: Malignant neoplasm of the urinary bladder.. TECHNIQUE: CT urogram protocol including unenhanced, renal parenchymal phase and excretory phase renal imaging was obtained following IV contrast. Normal saline was also administered IV. No oral contrast was given. 3D image post-processing was performed and archived at the request of the referring physician, on the CT scanner workstation without concurrent physician supervision. MQ: CTU_2 Contrast: IV: 100 ml of Omnipaque 350 Oral Contrast: None CT Radiation dose: Integrated dose-length product (DLP) for this visit = 1845 mGy*cm. CT Dose Reduction Employed: mAs-kVp adjusted based on patient size-age COMPARISON: None. RESULT: Kidneys and urinary tract: Right: No renal or ureteral calculi. No hydronephrosis or hydroureter. No upper tract urothelial filling defects or strictures. 1.9 cm cyst along the lateral upper pole of the right kidney. Small exophytic lesion arising from the lateral lower pole of the right kidney which is too small to characterize but likely represents a cyst. Left: No renal or ureteral calculi. No hydronephrosis or hydroureter. No upper tract urothelial filling defects or strictures. Bladder: Large diverticulum arising from the right posterior wall of the urinary bladder. There is asymmetric wall thickening and increased enhancement along the posterior and superior aspect of the bladder diverticulum. This is suspicious for urothelial carcinoma and can be correlated with cystoscopy if not already performed. Abdomen and Pelvis: Liver: Subcentimeter hypodense lesion in segment 2 of the liver which is too small to characterize but may represent a cyst.. Biliary: No bile duct dilation. Gallbladder is unremarkable. Spleen: No mass. No splenomegaly. Pancreas: No mass or duct dilation. 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 GI tract: No bowel obstruction. Lymph nodes: No abdominal or pelvic lymphadenopathy. Mesentery/Peritoneum: No ascites or mass. Pelvis: No mass, ascites or fluid collection. Bones and Soft Tissues: Degenerative changes. Small to moderate fat-containing right inguinal hernia. Lower thorax: Limited evaluation of the lower chest demonstrates mild segmental and subsegmental bronchiectasis in the left lower lobe with subsegmental atelectasis. Benign calcified granuloma in the lateral left lower lobe. 6 mm solid nodule in the posterior left lower lobe which appears partially calcified and likely represents a granuloma. Localizer images: No additional findings. IMPRESSION IMPRESSION: 1. Large diverticulum arising from the right posterior wall of the urinary bladder. There is asymmetric wall thickening and increased enhancement along the posterior and superior aspect of the bladder diverticulum. This is highly suspicious for urothelial carcinoma and can be correlated with cystoscopy if not already performed. No metastatic disease detected in the abdomen or pelvis. No upper tract urothelial filling defects detected. 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 Landfill Operations: PSCB Transcribe Date/Time: Sep 03 2023 2:47P Dictated by : CLINT LATHAM MD This examination was interpreted and the report reviewed and electronically signed by: CLINT LATHAM MD on Sep 03 2023 3:08PM EST [facility] Radiology Study observation (narrative) [facility] CT Kidney WO and W contrast IVOrdered By: [facility] Provider on 09-03-2023 [facility] Consultation Noteon 08-27-19 Consultation Note [id number] 0TIFF [facility] UroVysion Fish and Urine Cyt o ([facility])on 08-07-2023 UVFISH & UC Diagnosis Info Invalid Interpretation Code [facility] Comment on above: Result Comment: A:Ur ine,Urine:Bladder Wash Diagnosis Summary - Atypical squamous cells are present, suspicious for neoplasm. Diagnosis Summary - The UroVysion FISH study detected a positive profile. UroVysion FISH evaluates chromosomes 3, 7, 17, and 9p21 for aneuploid and deletion events associated with urothelial cell carcinoma. 125 cells were analyzed in this evaluation. Evidence of aneuploidy in at least 25 cells were found. These findings are most consistent with urothelial carcinoma. Less likely diagnosis includes other type of carcinoma or metastatic carcinoma involving genitourinary tract. These findings should be correlated with cytology and cystoscopy results.* CPT: 05989, 90783 Microscopic Notes - Microscopic Notes - Abnormal cells 9p21 deletions: Abnormal cells aneploid events: 25 Total cells analyzed: 125 Hematuria: Gross Description Site ID:A color Yellow fixative Alcohol Received 90 mls of clear yellow fluid with the patient's name and, Urine on the vial. Electronically signed by : on: 08/07/2023 20:09:56 Performed By: #### 1 [id number] #### [facility] [address] [place] [address] Consent for Procedure/Surger yon 08-02-2023 Consent for Procedure/Surgery [id number] 0TIFF [facility] Ambulatory Visit Summaryon 0 08-01-2023 Ambulatory Visit Summary SIERRAJAVIJOLLY A :1945 Visit Date:08/01/2023 Ambulatory Visit Instructions Your Diagnosis Gross hematuria Neurogenic bladder Bladder tumor Your Care Team Attending Physician - ABDIRAHMAN NORWOOD, Antonio Villeda Primary Care Physician - JOSE J DONALDSON JR, DO This Is Your Medications List ciprofloxacin (Cipro 500 mg Tab) Contact prescribing physician if questions or concerns ergocalciferol (Vitamin D) psyllium (Metamucil) ramipril (ramipril 10 mg Cap) rosuvastatin (rosuvastatin 5 mg Tab) spironolactone (spironolactone 50 mg Tab) Procedures Performed Cystoscopy (08/01/2023), Colonoscopy, Repair of inguinal hernia. Discharge Vitals Heart Rate (Peripheral) 64 Blood Pressure 138/76 Height 179 cm Height 70 in Weight 90 kg Weight 198 lb BMI 28.09 What to do next You Need to Schedule the Following Appointments Follow Up with ABDIRAHMAN NORWOOD, JUNIOR Dupont When: Where: [facility] [address] [place] [address]- Medications What How Much When Instructions Unchanged ciprofloxacin (Cipro 500 mg Tab) 1 Tablets By Mouth Every day Take 1 tablet the day before the procedure and 1 tablet after the procedure Unchanged ergocalciferol (Vitamin D) By Mouth Every day Contact prescribing physician if questions or concerns Unchanged psyllium (Metamucil) By Mouth Contact prescribing physician if questions or concerns Unchanged ramipril (ramipril 10 mg Cap) Contact prescribing physician if questions or concerns Unchanged rosuvastatin (rosuvastatin 5 mg Tab) 1 Tablets By Mouth Every day Contact prescribing physician if questions or concerns Unchanged spironolactone (spironolactone 50 mg Tab) 1 Tablets By Mouth Contact prescribing physician if questions or concerns Allergies No Known Allergies Problems Ongoing - Any problem that you are currently receiving treatment for. Bladder tumor BMI 29.0-29.9,adult BPH with urinary obstruction Gross hematuria History of urinary retention History of UTI Hypertension Hypogonadism, male Incomplete emptying of bladder Neurogenic bladder Patient Survey You may receive a survey via text or e-mail asking about your office visit. Please share your experience with us by completing your survey. We appreciate your feedback and thank you for choosing us for your care. Education Materials Clean Intermittent Catheterization, Male Clean intermittent catheterization (CIC) is a procedure to remove urine from the bladder by placing a small, flexible tube (catheter) into the bladder though the urethra. The urethra is a tube in the body that carries urine from the bladder out of the body. CIC may be done when: ? You cannot completely empty your bladder on your own. This may be due to a blockage in the bladder or urethra. ? Your bladder leaks urine. This may happen when the muscles or nerves near the bladder are not working normally, so the bladder overflows. Your health care provider will show you how to perform CIC and will help you to become comfortable performing this procedure at home. Your health care provider will also help you to get the home care supplies that are needed for this procedure. Supplies needed: ? Germ-free (sterile), water-based lubricant. ? A container for urine collection. You may also use the toilet to dispose of urine from the catheter. ? A catheter. Your health care provider will determine the best size for you. ? Use this catheter size: ? Clean gloves. ? Soap and water. ? Towel. How to perform this procedure: Most people need CIC at least 4 times per day to adequately empty the bladder. Your health care provider will tell you how often you should perform CIC. ? Number of times per day to perform CIC: ____ To perform CIC, follow these steps: 1. Wash your hands with soap and water. 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 2. Clean your penis with soap and water. Dry the tip of your penis completely. 3. Prepare the supplies that you will use during the procedure. Open the catheter package and lubricant. 4. Get in a comfortable position. Possible positions include: ? Sitting on a toilet, a chair, or the edge of a bed. ? Standing near a toilet. ? Lying down with your head raised on pillows and your knees pointing to the ceiling. You may wish to place a waterproof mat or pad under you. 5. If you are using a urine collection container, position it between your legs. 6. Urinate, if you are able. 7. Put on gloves. 8. Apply lubricant to about 2 inches (5 cm) of the tip of the catheter. 9. Set the catheter down on a clean, dry surface within reach. 10. Gently stretch your penis out from your body. Pull back any skin that covers the end of your penis (foreskin). Clean the end of your penis wi (more content not included)... [facility] Ambulatory Visit Summary JOLLY SIERRA :1945 Visit Date:08/01/2023 Ambulatory Visit Instructions Your Diagnosis Gross hematuria Neurogenic bladder Bladder tumor Your Care Team Attending Physician - Antonio GARY MD Primary Care Physician - JOSE J DONALDSON JR, DO This Is Your Medications List ciprofloxacin (Cipro 500 mg Tab) Contact prescribing physician if questions or concerns ergocalciferol (Vitamin D) psyllium (Metamucil) ramipril (ramipril 10 mg Cap) rosuvastatin (rosuvastatin 5 mg Tab) spironolactone (spironolactone 50 mg Tab) Procedures Performed Cystoscopy (08/01/2023), Colonoscopy, Repair of inguinal hernia. Discharge Vitals Heart Rate (Peripheral) 64 Blood Pressure 138/76 Height 179 cm Height 70 in Weight 90 kg Weight 198 lb BMI 28.09 What to do next You Need to Schedule the Following Appointments Follow Up with ABDIRAHMAN NORWOOD, Antonio Villeda, JUNIOR When: Where: [facility] [address] [place] [address]- Medications What How Much When Instructions Unchanged ciprofloxacin (Cipro 500 mg Tab) 1 Tablets By Mouth Every day Take 1 tablet the day before the procedure and 1 tablet after the procedure Unchanged ergocalciferol (Vitamin D) By Mouth Every day Contact prescribing physician if questions or concerns Unchanged psyllium (Metamucil) By Mouth Contact prescribing physician if questions or concerns Unchanged ramipril (ramipril 10 mg Cap) Contact prescribing physician if questions or concerns Unchanged rosuvastatin (rosuvastatin 5 mg Tab) 1 Tablets By Mouth Every day Contact prescribing physician if questions or concerns Unchanged spironolactone (spironolactone 50 mg Tab) 1 Tablets By Mouth Contact prescribing physician if questions or concerns Allergies No Known Allergies Problems Ongoing - Any problem that you are currently receiving treatment for. Bladder tumor BMI 29.0-29.9,adult BPH with urinary obstruction Gross hematuria History of urinary retention History of UTI Hypertension Hypogonadism, male Incomplete emptying of bladder Neurogenic bladder Patient Survey You may receive a survey via text or e-mail asking about your office visit. Please share your experience with us by completing your survey. We appreciate your feedback and thank you for choosing us for your care. Education Materials Clean Intermittent Catheterization, Male Clean intermittent catheterization (CIC) is a procedure to remove urine from the bladder by placing a small, flexible tube (catheter) into the bladder though the urethra. The urethra is a tube in the body that carries urine from the bladder out of the body. CIC may be done when: ? You cannot completely empty your bladder on your own. This may be due to a blockage in the bladder or urethra. ? Your bladder leaks urine. This may happen when the muscles or nerves near the bladder are not working normally, so the bladder overflows. Your health care provider will show you how to perform CIC and will help you to become comfortable performing this procedure at home. Your health care provider will also help you to get the home care supplies that are needed for this procedure. Supplies needed: ? Germ-free (sterile), water-based lubricant. ? A container for urine collection. You may also use the toilet to dispose of urine from the catheter. ? A catheter. Your health care provider will determine the best size for you. ? Use this catheter size: ? Clean gloves. ? Soap and water. ? Towel. How to perform this procedure: Most people need CIC at least 4 times per day to adequately empty the bladder. Your health care provider will tell you how often you should perform CIC. ? Number of times per day to perform CIC: ____ To perform CIC, follow these steps: 1. Wash your hands with soap and water. 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 2. Clean your penis with soap and water. Dry the tip of your penis completely. 3. Prepare the supplies that you will use during the procedure. Open the catheter package and lubricant. 4. Get in a comfortable position. Possible positions include: ? Sitting on a toilet, a chair, or the edge of a bed. ? Standing near a toilet. ? Lying down with your head raised on pillows and your knees pointing to the ceiling. You may wish to place a waterproof mat or pad under you. 5. If you are using a urine collection container, position it between your legs. 6. Urinate, if you are able. 7. Put on gloves. 8. Apply lubricant to about 2 inches (5 cm) of the tip of the catheter. 9. Set the catheter down on a clean, dry surface within reach. 10. Gently stretch your penis out from your body. Pull back any skin that covers the end of your penis (foreskin). Clean the end of your penis wi (more content not included)... [facility] Patient Educationon 08-01-19 Patient Education Urology Clean Intermittent Catheterization, Male Clean intermittent catheterization (CIC) is a procedure to remove urine from the bladder by placing a small, flexible tube (catheter) into the bladder though the urethra. The urethra is a tube in the body that carries urine from the bladder out of the body. CIC may be done when: ? You cannot completely empty your bladder on your own. This may be due to a blockage in the bladder or urethra. ? Your bladder leaks urine. This may happen when the muscles or nerves near the bladder are not working normally, so the bladder overflows. Your health care provider will show you how to perform CIC and will help you to become comfortable performing this procedure at home. Your health care provider will also help you to get the home care supplies that are needed for this procedure. Supplies needed: ? Germ-free (sterile), water-based lubricant. ? A container for urine collection. You may also use the toilet to dispose of urine from the catheter. ? A catheter. Your health care provider will determine the best size for you. ? Use this catheter size: ? Clean gloves. ? Soap and water. ? Towel. How to perform this procedure: Most people need CIC at least 4 times per day to adequately empty the bladder. Your health care provider will tell you how often you should perform CIC. ? Number of times per day to perform CIC: ____ To perform CIC, follow these steps: 1. Wash your hands with soap and water. 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 2. Clean your penis with soap and water. Dry the tip of your penis completely. 3. Prepare the supplies that you will use during the procedure. Open the catheter package and lubricant. 4. Get in a comfortable position. Possible positions include: ? Sitting on a toilet, a chair, or the edge of a bed. ? Standing near a toilet. ? Lying down with your head raised on pillows and your knees pointing to the ceiling. You may wish to place a waterproof mat or pad under you. 5. If you are using a urine collection container, position it between your legs. 6. Urinate, if you are able. 7. Put on gloves. 8. Apply lubricant to about 2 inches (5 cm) of the tip of the catheter. 9. Set the catheter down on a clean, dry surface within reach. 10. Gently stretch your penis out from your body. Pull back any skin that covers the end of your penis (foreskin). Clean the end of your penis with medicated sterile swabs as told by your health care provider. 11. Hold your penis upward at a 45?60 degree angle. This helps to straighten the urethra. 12. Slowly insert the lubricated catheter straight into your urethra until urine flows freely. This is usually about 6?8 inches (15?20 cm). 13. When urine starts to flow freely, insert the catheter 1 inch (3 cm) more. Allow urine to drain into the toilet or the urine collection container. 14. When urine stops flowing, slowly remove the catheter. 15. Note the color, amount, and odor of the urine. 16. Measure your urine and note the amount, if told by your health care provider. 17. Discard the urine in the toilet. 18. Clean your penis using soap and water. 19. Move the foreskin back in place, if applicable. 20. If you are using a single-use catheter, discard the catheter and supplies. 21. Wash your hands with soap and water. 22. If you are using a reusable catheter, follow package instructions about how to clean the catheter after each use. How often should I perform this procedure? ? Do CIC to empty your bladder every 4?6 hours or as often as told by your health care provider. ? If you have symptoms of too much urine in your bladder (overdistension) and you are not able to urinate, perform CIC. Symptoms of overdistension may include: ? Restlessness. ? Sweating or chills. ? Headache. ? Flushed or pale skin. ? Bloated lower abdomen. What are the risks? Generally, this is a safe procedure, however problems may occur, including: ? Infection. ? Injury to the urethra. ? Irritation of the urethra. Follow these instructions at home General instructions ? Drink enough fluid to keep your urine pale yellow. ? Dispose of a multiple use catheter when it becomes dry, brittle, or cloudy. This usually happens after you use the catheter for 1 week. ? Avoid caffeine. Caffeine may make you need to urinate more frequently and more urgently. ? When traveling, bring extra supplies with you in case of delays. Keep supplies with you in a place that you can access easily. If traveling by plane: ? Make sure that the lubricant in your carry-on bag is less than 3.4 ounces (100 mL). ? Use a single-use catheter. It may be difficult to clean a reusable catheter in a small bathroom. ? Take cdif-hav-xjwspru and prescription medicines only as told by your he (more content not included)... [facility] Fish and Urine Cyt o ([facility])on 08-01-2023 [facility] Method of Extraction Bladder Wash [facility] Comment on above: Performed By: #### 1 [id number] #### [facility] [address] [place] [address] [facility] Number of Jars 1 Invalid Interpretation Code [facility] Comment on above: Performed By: #### 1 [id number] #### [facility] [address] [place] [address] [facility] Specimen Urine [facility] Comment on above: Performed By: #### 1 [id number] #### [facility] [address] [place] [address] [facility] Type of Service Technical Only [facility] Comment on above: Performed By: #### 1 [id number] #### [facility] [address] [place] [address] Urology Office/Clinic Noteon 08-01-2023 Urology Office/Clinic Note Chief Complaint Cysto HPI Staff Cysto ABX TAKEN fish/cytol History of Present Illness Tests reviewed: reviewed I have reviewed the previous health record information and history for this patient from Dr. Gary. I have reviewed and verified the staff HPI to be accurate for this encounter. There have been no associated fever, chills, flank pain, or blood in the urine. Denies any urinary infections since last encounter. Review of Systems PHQ Score Initial Depression Screen Score: 0 SCORE ROS - Provider Constitutional: denies weight loss, denies hot flashes. Eyes: denies eye problems. Gastrointestinal: denies nausea, denies vomiting. Cardiovascular: denies chest pain or angina. Integumentary: no dryness Musculoskeletal: denies musculoskeletal symptoms. ENMT: denies otolaryngeal symptoms. Respiratory: no shortness of breath. Heme/Lymph: denies easy bleeding tendency, denies easy bruising tendency. Psychiatric: no confusion, no anxiety. Genitourinary: See HPI. Physical Exam Vitals & Measurements HR: 64(Peripheral) BP: 138/76 HT: 70 in HT: 179 cm WT: 90 kg WT: 198 lb BMI: 28.09 General Appearance: alert, no distress, well nourished, well developed male. Genitourinary: normal scrotum, normal testes, normal urethra, normal epididymis, normal vas deferens/spermatic cord. Flank Pain: none. Bladder: nonpalpable. Procedure Operative Information Anesthesia Type: Local Procedure: Local Cystoscopy Complications: None Surgical risks, benefits, details of the procedure have been explained to the patient. Full informed consent has been obtained. Intraoperative Information Prepped: Patient is brought back to the endoscopy suite. Patient is placed in supine position. Patient prepped in the usual fashion with Betadine solution. 2% Xylocaine Jelly is placed per Urethra. After waiting several minutes, the Cystoscope is introduced. The Urethra is: Normal The Prostatic Urethra is: _Bilobar obstruction, there is a posterior lip at the bladder neck that the catheter is hitting. The Bladder: _Large diverticulum on the R floor and within the tic are several 1-2 cm bladder tumors, Trabeculated: Mild (1) The Ureteral orifices: Show efflux of clear urine Specimens Removed: Bladder wash sent for FISH and Cytology test Removal: Cystoscope is removed. The patient tolerated it well. Postoperative Information Patient is discharged home with antibiotic coverage. Follow up arranged. Assessment/Plan 1. Gross hematuria (R31.0: Gross hematuria) Pt had IO cysto today wo complications due to gross hematuria and difficulty with CIC. Will send bladder wash specimen for FISH/cytol and call pt if positive. 2. Neurogenic bladder (N31.2: Flaccid neuropathic bladder, not elsewhere classified) Pt continues CIC 4x/day. 3. Bladder tumor (D49.4: Neoplasm of unspecified behavior of bladder) See procedure section. Follow up after below for routine surveillance cystos or sooner if needed. Pt understands and agrees with plan. -Refer to [facility]. Follow-up With When Contact Information ABDIRAHMAN NORWOOD, Antonio Villeda, [facility] [address], [place] [address]- Additional Instructions: refer to [facility], f/u after Patient Education Clean Intermittent Catheterization, Male I, Raquel Lizarraga, personally scribed for Dr. Gary on 08/01/2023 13:11:59. . Documentation recorded by the scribe, Raquel Lizarraga, accurately reflects the services(s) I performed and decisions made by me. Authenticated by Dr. Gary on 08/01/2023 13:13:03. Problem List/Past Medical History Ongoing Bladder tumor BMI 29.0-29.9,adult BPH with urinary obstruction Gross hematuria History of urinary retention History of UTI Hypertension Hypogonadism, male Incomplete emptying of bladder Neurogenic bladder Historical No qualifying data Procedure/Surgical History Cystoscopy (08/01/2023), Colonoscopy, Repair of inguinal hernia. Medications Cipro 500 mg Tab, 500 mg= 1 tab(s), Oral, Daily Metamucil, Oral ramipril 10 mg Cap rosuvastatin 5 mg Tab, 5 mg= 1 tab(s), Oral, Daily spironolactone 50 mg Tab, 50 mg= 1 tab(s), Oral Vitamin D, Oral, Daily Allergies No Known Allergies Social History Alcohol - Low Risk, 05/22/2019 Tobacco Never (less than 100 in lifetime) Tobacco Use:. Never Smokeless Tobacco Use:., 08/01/2023 Family History Family history is negative Immunizations Vaccine Date Status Comments influenza virus vaccine, inactivated 02/01/2022 Recorded SARS-CoV-2 (COVID-19) [id number] 02/01/2022 Recorded SARSCoV2 mRNA(scetghnjw-lpup-dh cros) vac 08/22/2021 Recorded SARS-CoV-2 (COVID-19) mRNA BNT-162b2 vax 02/01/2021 Recorded influenza virus vaccine, inactivated 01/17/2021 Recorded SARS-CoV-2 (COVID-19) mRNA BNT-162b2 vax 06/28/2020 Recorded 2022-08-07: [id number] SARS-CoV-2 (COVID-19) mRNA BNT-162b2 vax 06/07/2020 Recorded 2022-08-07: T (more content not included)... [facility] Comment on above: Result Comment: Elec tronically Signed By: Antonio GARY MD\.br\Date and Time Signed: 08/01/23 13:13 EDT\.br\Electronically Co-Signed By: Raquel Lizarraga\.br\Date and Time Co-Signed: 08/01/23 13:12 EDT Vital Signs Date Time Vital Sign Value Performing Clinician Facility 01-08-2025 09:51-0400 Body height 175.3 cm Tanesha Casiano SOIL SURVEYOR Work Phone: [facility] 01-08-2025 09:51-0400 Body mass index (BMI) [Ratio] 28.86 kg/m2 Tanesha Casiano SOIL SURVEYOR Work Phone: [facility] 01-08-2025 09:51-0400 Body temperature 97.3 [degF] Tanesha Swinehart SOIL SURVEYOR Work Phone: [facility] 01-08-2025 09:51-0400 Body weight 88.63 kg Tanesha Ericksont SOIL SURVEYOR Work Phone: [facility] 01-08-2025 09:51-0400 Diastolic blood pressure 72 mm[Hg] Tanesha Ericksont SOIL SURVEYOR Work Phone: [facility] 01-08-2025 09:51-0400 Heart rate 81 /min Tanesha Ericksont SOIL SURVEYOR Work Phone: [facility] 01-08-2025 09:51-0400 SaO2% (BldA) [Mass fraction] 96 % Tanesha Ericksont SOIL SURVEYOR Work Phone: [facility] 01-08-2025 09:51-0400 Systolic blood pressure 152 mm[Hg] Tanesha Ericksont SOIL SURVEYOR Work Phone: [facility] 12-01-2024 09:53-0400 Body height 177.8 cm Rubén Biedenbach DO Work Phone: [facility] 12-01-2024 09:53-0400 Body mass index (BMI) [Ratio] 26.54 kg/m2 Rubén Biedenbach DO Work Phone: [facility] 12-01-2024 09:53-0400 Body weight 83.92 kg Rubén Jettedenbach DO Work Phone: [facility] 11-17-2024 10:56-0400 Body height 177.8 cm Rubén Biedenbach DO Work Phone: [facility] 11-17-2024 10:56-0400 Body mass index (BMI) [Ratio] 26.54 kg/m2 Rubén Biedenbach DO Work Phone: [facility] 11-17-2024 10:56-0400 Body weight 83.92 kg Rubén Biedenbach DO Work Phone: [facility] 09-11-2024 14:50-0400 Body height 177.8 cm Faisal Dasilva MD Work Phone: [facility] 09-11-2024 14:50-0400 Body mass index (BMI) [Ratio] 28.56 kg/m2 Faisal Dasilva MD Work Phone: [facility] 09-11-2024 14:50-0400 Body temperature 97.39 [degF] Faisal Dasilva MD Work Phone: [facility] 09-11-2024 14:50-0400 Body weight 90.3 kg Faisal Dasilva MD Work Phone: [facility] 09-11-2024 14:50-0400 Diastolic blood pressure 70 mm[Hg] Faisal Dasilva MD Work Phone: [facility] 09-11-2024 14:50-0400 Heart rate 60 /min Faisal Dasilva MD Work Phone: [facility] 09-11-2024 14:50-0400 Respiratory rate 16 /min Faisal Dasilva MD Work Phone: [facility] 09-11-2024 14:50-0400 SaO2% (BldA) [Mass fraction] 99 % Faisal Dasilva MD Work Phone: [facility] 09-11-2024 14:50-0400 Systolic blood pressure 173 mm[Hg] Faisal Dasilva MD Work Phone: [facility] 08-18-2024 09:44-0400 Body height 177.8 cm Rubén Newman DO Work Phone: [facility] 08-18-2024 09:44-0400 Body mass index (BMI) [Ratio] 26.54 kg/m2 Rubén Newman DO Work Phone: [facility] 08-18-2024 09:44-0400 Body weight 83.92 kg Rubén Birobertoenedy DO Work Phone: [facility] 08-04-2024 11:03-0400 Body height 177.8 cm Rubén Newman DO Work Phone: [facility] 08-04-2024 11:03-0400 Body mass index (BMI) [Ratio] 26.54 kg/m2 Rubén Newman DO Work Phone: [facility] 08-04-2024 11:03-0400 Body weight 83.92 kg Rubén Newman DO Work Phone: [facility] 06-12-2024 14:45-0500 Body height 177.8 cm Faisal Dasilva MD Work Phone: [facility] 06-12-2024 14:45-0500 Body mass index (BMI) [Ratio] 26.95 kg/m2 Faisal Dasilva MD Work Phone: [facility] 06-12-2024 14:45-0500 Body temperature 97.2 [degF] Faisal Dasilva MD Work Phone: [facility] 06-12-2024 14:45-0500 Body weight 85.2 kg Faisal Dasilva MD Work Phone: [facility] 06-12-2024 14:45-0500 Diastolic blood pressure 71 mm[Hg] Faisal Dasilva MD Work Phone: [facility] 06-12-2024 14:45-0500 Heart rate 70 /min Faisal Dasilva MD Work Phone: [facility] 06-12-2024 14:45-0500 Respiratory rate 16 /min Faisal Dasilva MD Work Phone: [facility] 06-12-2024 14:45-0500 SaO2% (BldA) [Mass fraction] 97 % Faisal Dasilva MD Work Phone: [facility] 06-12-2024 14:45-0500 Systolic blood pressure 123 mm[Hg] Faisal Dasilva MD Work Phone: [facility] 03-11-2024 14:44-0500 Body mass index (BMI) [Ratio] 26.95 kg/m2 Faisal Dasilva MD Work Phone: [facility] 03-11-2024 14:44-0500 Body temperature 97.11 [degF] Faisal Dasilva MD Work Phone: [facility] 03-11-2024 14:44-0500 Body weight 85.2 kg Faisal Dasilva MD Work Phone: [facility] 03-11-2024 14:44-0500 Diastolic blood pressure 78 mm[Hg] Faisal Dasilva MD Work Phone: [facility] 03-11-2024 14:44-0500 Heart rate 69 /min Faisal Dasilva MD Work Phone: [facility] 03-11-2024 14:44-0500 Respiratory rate 18 /min Faisal Dasilva MD Work Phone: [facility] 03-11-2024 14:44-0500 SaO2% (BldA) [Mass fraction] 99 % Faisal Dasilva MD Work Phone: [facility] 03-11-2024 14:44-0500 Systolic blood pressure 148 mm[Hg] Faisal Dasilva MD Work Phone: [facility] 02-12-2024 09:30-0400 Body height 177.8 cm Marlee Chantelle PA-C Work Phone: [facility] 02-12-2024 09:30-0400 Body mass index (BMI) [Ratio] 26.86 kg/m2 Marlee Chantelle PA-C Work Phone: [facility] 02-12-2024 09:30-0400 Body temperature 97.7 [degF] Marlee Chantelle PA-C Work Phone: [facility] 02-12-2024 09:30-0400 Body weight 84.9 kg Marlee Chantelle PA-C Work Phone: [facility] 02-12-2024 09:30-0400 Diastolic blood pressure 70 mm[Hg] Marlee Chantelle PA-C Work Phone: [facility] 02-12-2024 09:30-0400 Heart rate 62 /min Marlee Chantelle PA-C Work Phone: [facility] 02-12-2024 09:30-0400 Respiratory rate 16 /min Marlee Toroer PA-C Work Phone: [facility] 02-12-2024 09:30-0400 SaO2% (BldA) [Mass fraction] 100 % Marlee Toroer PA-C Work Phone: [facility] 02-12-2024 09:30-0400 Systolic blood pressure 138 mm[Hg] Marlee Chantelle PA-C Work Phone: [facility] 01-28-2024 14:20-0400 Diastolic blood pressure 68 mm[Hg] Pacc 4 Work Phone: [facility] 01-28-2024 14:20-0400 Systolic blood pressure 128 mm[Hg] Pacc 4 Work Phone: [facility] 01-28-2024 13:27-0400 Body height 177.8 cm Pacc 4 Work Phone: [facility] 01-28-2024 13:27-0400 Body mass index (BMI) [Ratio] 27.14 kg/m2 Pacc 4 Work Phone: [facility] 01-28-2024 13:27-0400 Body temperature 97.3 [degF] Pacc 4 Work Phone: [facility] 01-28-2024 13:27-0400 Body weight 85.8 kg Pacc 4 Work Phone: [facility] 01-28-2024 13:27-0400 Heart rate 83 /min Pacc 4 Work Phone: [facility] 01-28-2024 13:27-0400 Respiratory rate 16 /min Pacc 4 Work Phone: [facility] 01-28-2024 13:27-0400 SaO2% (BldA) [Mass fraction] 100 % Pacc 4 Work Phone: [facility] 01-15-2024 10:00-0400 Body temperature 98.4 [degF] Chair Adriano Work Phone: [facility] 01-15-2024 10:00-0400 Diastolic blood pressure 63 mm[Hg] Chair Adriano Work Phone: [facility] 01-15-2024 10:00-0400 Heart rate 68 /min Chair Adriano Work Phone: [facility] 01-15-2024 10:00-0400 Respiratory rate 16 /min Chair Adriano Work Phone: [facility] 01-15-2024 10:00-0400 SaO2% (BldA) [Mass fraction] 100 % Chair Adriano Work Phone: [facility] 01-15-2024 10:00-0400 Systolic blood pressure 134 mm[Hg] Chair Adriano Work Phone: [facility] 01-08-2024 08:55-0400 Body height 174.5 cm Faisal Dasilva MD Work Phone: [facility] 01-08-2024 08:55-0400 Body mass index (BMI) [Ratio] 28.01 kg/m2 Faisal Dasilva MD Work Phone: [facility] 01-08-2024 08:55-0400 Body temperature 97.7 [degF] Faisal Dasilva MD Work Phone: [facility] 01-08-2024 08:55-0400 Body weight 85.3 kg Faisal Dasilva MD Work Phone: [facility] 01-08-2024 08:55-0400 Diastolic blood pressure 68 mm[Hg] Faisal Dasilva MD Work Phone: [facility] 01-08-2024 08:55-0400 Heart rate 83 /min Faisal Dasilva MD Work Phone: [facility] 01-08-2024 08:55-0400 Respiratory rate 16 /min Faisal Dasilva MD Work Phone: [facility] 01-08-2024 08:55-0400 SaO2% (BldA) [Mass fraction] 98 % Faisal Dasilva MD Work Phone: [facility] 01-08-2024 08:55-0400 Systolic blood pressure 139 mm[Hg] Faisal Dasilva MD Work Phone: [facility] 12-24-2023 10:12-0400 Body mass index (BMI) [Ratio] 28.11 kg/m2 Faisal Dasilva MD Work Phone: [facility] 12-24-2023 10:12-0400 Body temperature 97.2 [degF] Faisal Dasilva MD Work Phone: [facility] 12-24-2023 10:12-0400 Body weight 85.6 kg Faisal Dasilva MD Work Phone: [facility] 12-24-2023 10:12-0400 Diastolic blood pressure 77 mm[Hg] Faisal Dasilva MD Work Phone: [facility] 12-24-2023 10:12-0400 Heart rate 84 /min Faisal Dasilva MD Work Phone: [facility] 12-24-2023 10:12-0400 Respiratory rate 18 /min Faisal Dasilva MD Work Phone: [facility] 12-24-2023 10:12-0400 SaO2% (BldA) [Mass fraction] 97 % Faisal Dasilva MD Work Phone: [facility] 12-24-2023 10:12-0400 Systolic blood pressure 173 mm[Hg] Faisal Dasilva MD Work Phone: [facility] 12-17-2023 10:13-0400 Body height 174.5 cm Marlee Chantelle PA-C Work Phone: [facility] 12-17-2023 10:13-0400 Body mass index (BMI) [Ratio] 28.11 kg/m2 Marlee Chantelle PA-C Work Phone: [facility] 12-17-2023 10:13-0400 Body temperature 97.2 [degF] Marlee Chantelle PA-C Work Phone: [facility] 12-17-2023 10:130400 Body weight 85.6 kg Marlee Chantelle PA-C Work Phone: [facility] 12-17-2023 10:13-0400 Diastolic blood pressure 72 mm[Hg] Marlee Chantelle PA-C Work Phone: [facility] 12-17-2023 10:130400 Heart rate 88 /min Marlee Chantelle PA-C Work Phone: [facility] 12-17-2023 10:13-0400 Respiratory rate 16 /min Marlee Chantelle PA-C Work Phone: [facility] 12-17-2023 10:13-0400 SaO2% (BldA) [Mass fraction] 97 % Marlee Chantelle PA-C Work Phone: [facility] 12-17-2023 10:13-0400 Systolic blood pressure 150 mm[Hg] Marlee Chantelle PA-C Work Phone: [facility] 11-26-2023 09:56-0400 Body height 174.5 cm Faisal Dasilva MD Work Phone: [facility] 11-26-2023 09:56-0400 Body mass index (BMI) [Ratio] 28.34 kg/m2 Faisal Dasilva MD Work Phone: [facility] 11-26-2023 09:56-0400 Body temperature 97.59 [degF] Faisal Dasilva MD Work Phone: [facility] 11-26-2023 09:56-0400 Body weight 86.3 kg Faisal Dasilva MD Work Phone: [facility] 11-26-2023 09:56-0400 Diastolic blood pressure 67 mm[Hg] Faisal Dasilva MD Work Phone: [facility] 11-26-2023 09:56-0400 Heart rate 70 /min Faisal Dasilva MD Work Phone: [facility] 11-26-2023 09:56-0400 Respiratory rate 18 /min Faisal Dasilva MD Work Phone: [facility] 11-26-2023 09:56-0400 SaO2% (BldA) [Mass fraction] 99 % Faisal Dasilva MD Work Phone: [facility] 11-26-2023 09:56-0400 Systolic blood pressure 135 mm[Hg] Faisal Dasilva MD Work Phone: [facility] 11-12-2023 09:03-0400 Body mass index (BMI) [Ratio] 27.75 kg/m2 Faisal Dasilva MD Work Phone: [facility] 11-12-2023 09:03-0400 Body temperature 97.2 [degF] Faisal Dasilva MD Work Phone: [facility] 11-12-2023 09:03-0400 Body weight 84.5 kg Faisal Dasilva MD Work Phone: [facility] 11-12-2023 09:03-0400 Diastolic blood pressure 61 mm[Hg] Faisal Dasilva MD Work Phone: [facility] 11-12-2023 09:03-0400 Heart rate 73 /min Faisal Dasilva MD Work Phone: [facility] 11-12-2023 09:03-0400 Respiratory rate 18 /min Faisal Dasilva MD Work Phone: [facility] 11-12-2023 09:03-0400 SaO2% (BldA) [Mass fraction] 100 % Faisal Dasilva MD Work Phone: [facility] 11-12-2023 09:03-0400 Systolic blood pressure 125 mm[Hg] Faisal Dasilva MD Work Phone: [facility] 11-05-2023 10:56-0400 Body height 174.5 cm Marlee Dan PA-C Work Phone: [facility] Comment on above: verified by 2 caregivers with shoes 11-05-2023 10:56-0400 Body mass index (BMI) [Ratio] 28.37 kg/m2 Marlee Chantelle PA-C Work Phone: [facility] 11-05-2023 10:56-0400 Body temperature 97.11 [degF] Marlee Chantelle PA-C Work Phone: [facility] 11-05-2023 10:56-0400 Body weight 86.4 kg Marlee Chantelle PA-C Work Phone: [facility] 11-05-2023 10:56-0400 Diastolic blood pressure 79 mm[Hg] Marlee Chantelle PA-C Work Phone: [facility] 11-05-2023 10:56-0400 Heart rate 62 /min Marlee Chantelle PA-C Work Phone: [facility] 11-05-2023 10:56-0400 Respiratory rate 16 /min Marlee Chantelle PA-C Work Phone: [facility] 11-05-2023 10:56-0400 SaO2% (BldA) [Mass fraction] 98 % Marlee Chantelle PA-C Work Phone: [facility] 11-05-2023 10:56-0400 Systolic blood pressure 136 mm[Hg] Marlee Chantelle PA-C Work Phone: [facility] 10-22-2023 10:31-0400 Body height 177.8 cm Faisal Dasilva MD Work Phone: [facility] 10-22-2023 10:31-0400 Body mass index (BMI) [Ratio] 27.11 kg/m2 Faisal Dasilva MD Work Phone: [facility] 10-22-2023 10:31-0400 Body temperature 97.11 [degF] Faisal Dasilva MD Work Phone: [facility] 10-22-2023 10:31-0400 Body weight 85.7 kg Faisal Dasilva MD Work Phone: [facility] 10-22-2023 10:31-0400 Diastolic blood pressure 81 mm[Hg] Faisal Dasilva MD Work Phone: [facility] 10-22-2023 10:31-0400 Heart rate 82 /min Faisal Dasilva MD Work Phone: [facility] 10-22-2023 10:31-0400 Respiratory rate 18 /min Faisal Dasilva MD Work Phone: [facility] 10-22-2023 10:31-0400 SaO2% (BldA) [Mass fraction] 99 % Faisal Dasilva MD Work Phone: [facility] 10-22-2023 10:31-0400 Systolic blood pressure 136 mm[Hg] Faisal Dasilva MD Work Phone: [facility] 09-27-2023 10:14-0400 Body height 177.8 cm Faisal Dasilva MD Work Phone: [facility] 09-27-2023 10:14-0400 Body mass index (BMI) [Ratio] 27.9 kg/m2 Faisal Dasilva MD Work Phone: [facility] 09-27-2023 10:14-0400 Body temperature 97.39 [degF] Faisal Dasilva MD Work Phone: [facility] 09-27-2023 10:14-0400 Body weight 88.2 kg Faisal Dasilva MD Work Phone: [facility] 09-27-2023 10:14-0400 Diastolic blood pressure 72 mm[Hg] Faisal Dasilva MD Work Phone: [facility] 09-27-2023 10:14-0400 Heart rate 76 /min Faisal Dasilva MD Work Phone: [facility] 09-27-2023 10:14-0400 Respiratory rate 16 /min Faisal Dasilva MD Work Phone: [facility] 09-27-2023 10:14-0400 SaO2% (BldA) [Mass fraction] 99 % Faisal Dasilva MD Work Phone: [facility] 09-27-2023 10:14-0400 Systolic blood pressure 125 mm[Hg] Faisal Dasilva MD Work Phone: [facility] 09-21-2023 08:41-0400 Diastolic blood pressure 81 mm[Hg] Nurse Mob Work Phone: [facility] 09-21-2023 08:41-0400 Heart rate 81 /min Nurse Mob Work Phone: [facility] 09-21-2023 08:41-0400 Systolic blood pressure 152 mm[Hg] Nurse Mob Work Phone: [facility] 08-28-2023 12:03-0400 Diastolic blood pressure 67 mm[Hg] Pacc 1 Work Phone: [facility] 08-28-2023 12:03-0400 Systolic blood pressure 148 mm[Hg] Pacc 1 Work Phone: [facility] 08-28-2023 11:49-0400 Body height 177.8 cm Pacc 1 Work Phone: [facility] 08-28-2023 11:49-0400 Body mass index (BMI) [Ratio] 28.47 kg/m2 Pacc 1 Work Phone: [facility] 08-28-2023 11:49-0400 Body temperature 97.7 [degF] Pacc 1 Work Phone: [facility] 08-28-2023 11:49-0400 Body weight 90 kg Pacc 1 Work Phone: [facility] 08-28-2023 11:49-0400 Heart rate 65 /min Pacc 1 Work Phone: [facility] 08-28-2023 11:49-0400 Respiratory rate 16 /min Pacc 1 Work Phone: [facility] 08-28-2023 11:49-0400 SaO2% (BldA) [Mass fraction] 99 % Pacc 1 Work Phone: [facility] 08-24-2023 14:12-0400 Diastolic blood pressure 79 mm[Hg] Jason Will MD Work Phone: [facility] 08-24-2023 14:12-0400 Heart rate 72 /min Jason Will MD Work Phone: [facility] 08-24-2023 14:12-0400 Systolic blood pressure 150 mm[Hg] Jason Will MD Work Phone: [facility] 08-01-2023 12:32-0400 Blood Pressure Location Antonio GARY [facility] 08-01-2023 12:32-0400 Diastolic blood pressure 76 mm[Hg] Antonio GARY [facility] 08-01-2023 12:32-0400 Heart rate 64 /min Antonio GARY [facility] 08-01-2023 12:32-0400 Systolic blood pressure 138 mm[Hg] Antonio GARY [facility] 08-07-2022 08:46-0400 Blood Pressure Location Antonio GARY [facility] 08-07-2022 08:46-0400 Diastolic blood pressure 84 mm[Hg] Antonio GARY [facility] 08-07-2022 08:46-0400 Heart rate 72 /min Antonio GARY [facility] 08-07-2022 08:46-0400 Respiratory rate 16 /min Antonio GARY [facility] 08-07-2022 08:46-0400 Systolic blood pressure 136 mm[Hg] Antonio GARY [facility] Amber Encounters Encounter Date Encounter Type Care Provider Facility Start: 01-08-2025 End: 01-08-2025 Bamboo flowsheet Tanesha Swinejesust SOIL SURVEYOR Work Phone: [facility] Start: 01-08-2025 End: 01-08-2025 Bamboo flowsheet Tanesha Lamhart SOIL SURVEYOR Work Phone: [facility] Start: 01-08-2025 End: 01-08-2025 Office outpatient new 45 minutes Tanesha Lamjesust SOIL SURVEYOR Work Phone: [facility] Comment on above: Heart failure, unspe cified (HCC) (Primary Dx); Primary hypertension ; Malignant neoplasm of urinary bladder, unspecified site (HCC); Stage 3b chronic kidney disease (CMS-HCC); Hyperlipidemia, unspecified hyperlipidemia type ; Multiple thyroid nodules ; Agent orange exposure Start: 12-15-2024 End: 12-15-2024 Telephone encounter David Capellan RN Work Phone: Hematology/Oncology Comment on above: Care Coordination (C linical update) Start: 12-11-2024 End: 12-11-2024 ambulatory FAISAL DASILVA Facility:[facility] Start: 12-01-2024 End: 12-01-2024 Bamboo flowsheet Rubén Newman DO Work Phone: [facility] Start: 12-01-2024 End: 12-01-2024 Bamboo flowsheet Rubén Newman DO Work Phone: [facility] Start: 12-01-2024 End: 12-01-2024 Telephone encounter Jose Martin Hillman APRN.CNP Work Phone: Hematology/Oncology Comment on above: Lab Orders Start: 12-01-2024 End: 12-01-2024 Office outpatient visit 15 minutes Rubén Newman DO Work Phone: [facility] Comment on above: Nontoxic multinodula r goiter (Primary Dx); Thyroid nodule Start: 12-01-2024 End: 12-01-2024 ambulatory RUBÉN NEWMAN Not Available Start: 11-25-2024 End: 11-25-2024 Telephone encounter Jason Will MD Work Phone: Urology Comment on above: Appointment Confirma tion Start: 11-17-2024 End: 11-17-2024 Bamboo flowsheet Rubén Newman DO Work Phone: [facility] Start: 11-17-2024 End: 11-17-2024 Bamboo flowsheet Rubén Newman DO Work Phone: [facility] Start: 11-17-2024 End: 11-17-2024 Departed Referred Rubén Newman DO -Lab [facility] [place] Work Phone: Start: 11-17-2024 End: 11-17-2024 Office outpatient visit 25 minutes Rubén Newman DO Work Phone: [facility] Comment on above: Nontoxic multinodula r goiter (Primary Dx); Thyroid nodule Start: 11-17-2024 End: 11-17-2024 ambulatory RUBÉN NEWMAN [facility] Work Phone: Start: 10-28-2024 ambulatory JOSE J DONALDSON Facility:[facility] Start: 10-28-2024 End: 10-28-2024 Subsequent hospital visit by physician [facility] Work Phone: [facility] Radiology CT Scan Comment on above: 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] Start: 09-11-2024 End: 09-11-2024 Patient encounter procedure Faisal Dasilva MD Work Phone: Hematology/Oncology Start: 09-11-2024 End: 09-11-2024 ambulatory Faisal Dasilva MD Work Phone: Hematology/Oncology Comment on above: Malignant neoplasm o f overlapping sites of bladder (HCC) (Primary Dx); Neurogenic bladder; Thyroid nodule Start: 09-02-2024 End: 09-02-2024 Telephone encounter Amarilis Oh RN Urology Comment on above: Antibiotic Start: 08-28-2024 End: 08-28-2024 ambulatory JASON WILL Facility:[facility] Start: 08-18-2024 End: 08-18-2024 Bamboo flowsheet Rubén Newman DO Work Phone: [facility] Start: 08-18-2024 End: 08-18-2024 Bamboo flowsheet Rubén Newman DO Work Phone: [facility] Start: 08-18-2024 End: 08-18-2024 Office outpatient visit 15 minutes Rubén Newman DO Work Phone: [facility] Comment on above: Nontoxic multinodula r goiter (CMS/HCC) (Primary Dx); Thyroid nodule (CMS/HCC) Start: 08-18-2024 End: 08-18-2024 ambulatory RUBÉN NEWMAN Not Available Start: 08-13-2024 End: 08-13-2024 Telephone encounter Jason Will MD Work Phone: Urology Comment on above: rescheduled appointm ent Start: 08-04-2024 End: 08-04-2024 Bamboo flowsheet Rubén Newman DO Work Phone: [facility] Start: 08-04-2024 End: 08-04-2024 Bamboo flowsheet Rubén Newman DO Work Phone: [facility] Start: 08-04-2024 End: 08-04-2024 Departed Referred PHYSICIAN [facility] [place] Work Phone: Start: 08-04-2024 End: 08-04-2024 Office outpatient visit 25 minutes Rubén Newman DO Work Phone: [facility] Comment on above: Nontoxic multinodula r goiter (CMS/HCC) (Primary Dx); Thyroid nodule (CMS/HCC); Thyroid dysfunction (CMS/HCC) Start: 08-04-2024 End: 08-04-2024 ambulatory PHYSICIAN NO [facility] Work Phone: Start: 07-14-2024 End: 07-14-2024 External Result Encounter Rubén Lockwood Pietro DO Work Phone: [facility] External Department Unsolicited Start: 07-14-2024 End: 07-14-2024 External Result Encounter Rubén Lockwood Carlitoskateyedy DO Work Phone: [facility] External Department Unsolicited Start: 07-14-2024 End: 07-14-2024 Patient encounter procedure PHYSICIAN NO [facility] [place] Work Phone: Start: 07-14-2024 End: 07-14-2024 ambulatory PHYSICIAN NO [facility] Work Phone: Start: 06-19-2024 End: 07-10-2024 Telephone encounter Donald Perez RN Work Phone: Hematology/Oncology Comment on above: Care Coordination (T hyroid US) Start: 06-12-2024 End: 06-12-2024 ambulatory FAISAL DASILVA Facility:[facility] Start: 06-12-2024 End: 06-12-2024 Office outpatient visit 25 minutes Faisal Dasilva MD Work Phone: Hematology/Oncology Comment on above: Malignant neoplasm o f overlapping sites of bladder (HCC) (Primary Dx); Abnormal imaging of thyroid Start: 06-04-2024 End: 06-04-2024 ambulatory FAISAL DASILVA Facility:[facility] Start: 06-04-2024 End: 06-04-2024 Subsequent hospital visit by physician Arrival Time Radiology Work Phone: Radiology Pet CT Comment on above: Malignant neoplasm o f overlapping sites of bladder (HCC) [C67.8] Start: 04-28-2024 End: 04-28-2024 Telephone encounter Faisal Dasilva MD Work Phone: Hematology/Oncology Comment on above: Orders Start: 03-12-2024 End: 03-12-2024 Telephone encounter Lizzie Perez RN Hematology/Oncology Start: 03-11-2024 End: 03-11-2024 Office outpatient visit 15 minutes Faisal Dasilva MD Work Phone: Hematology/Oncology Comment on above: Malignant neoplasm o f overlapping sites of bladder (HCC) (Primary Dx); Neurogenic bladder Start: 03-11-2024 End: 03-11-2024 ambulatory FAISAL DASILVA Facility:[facility] Start: 02-19-2024 End: 02-19-2024 Telephone encounter Mahi Hansen RN Urology Comment on above: Surgical Followup Results Start: 02-18-2024 End: 02-18-2024 ambulatory [facility] Facility:[facility] Start: 02-12-2024 End: 02-12-2024 Office outpatient visit 15 minutes Marlee TINAJEROC Work Phone: Hematology/Oncology Comment on above: Malignant neoplasm o f overlapping sites of bladder (HCC) (Primary Dx) Start: 02-12-2024 End: 02-12-2024 ambulatory FAISAL DASILVA Facility:[facility] Start: 02-11-2024 End: 02-11-2024 Telephone encounter Amarilis Oh RN Urology Comment on above: Pre-Op Teaching Start: 02-07-2024 End: 02-13-2024 Telephone encounter Faisal Dasilva MD Work Phone: Hematology/Oncology Comment on above: Lab Orders Start: 01-29-2024 End: 01-29-2024 Telephone encounter Bridget Desai APRN.RETREAD SUPERVISOR Work Phone: Pre Anesthesia Comment on above: Results; Preparation s For Surgery Start: 01-28-2024 End: 01-28-2024 Admission to establishment [place] [id number] Work Phone: Pre Anesthesia Start: 01-28-2024 End: 01-28-2024 ambulatory BRIDGET DESAI Facility:[facility] Start: 01-28-2024 End: 01-28-2024 Anesthesia consultation [facility] Work Phone: Pre Anesthesia Comment on above: Pre-op evaluation (P rimary Dx); Hyperlipidemia, unspecified hyperlipidemia type; Primary hypertension; Neurogenic bladder; Antineoplastic chemotherapy induced anemia Start: 01-28-2024 Encounter for other preprocedural examination JOSE J PEREZRAJANI DE LA ROSA [facility] Start: 01-28-2024 End: 01-28-2024 Preprocedural examination done [facility] 4 Work Phone: [facility] Work Phone: Start: 01-18-2024 End: 01-18-2024 Orders Only Mariajose Abreu BOOM OPERATOR.RETREAD SUPERVISOR Work Phone: Urology Comment on above: Bacteriuria (Primary Dx) Start: 01-15-2024 End: 01-15-2024 ambulatory Chair 8 Adriano Work Phone: Hematology/Oncology Comment on above: Malignant neoplasm o f overlapping sites of bladder (HCC) (Primary Dx); Neoplasm of bladder; Abnormal coagulation profile; Abnormal urine levels of substances chiefly nonmedicinal as to source Start: 01-08-2024 End: 01-08-2024 Patient encounter procedure Faisal Dasilva MD Work Phone: Hematology/Oncology Start: 01-08-2024 End: 01-08-2024 ambulatory Chair 8 Adriano Work Phone: Hematology/Oncology Comment on above: Malignant neoplasm o f overlapping sites of bladder (HCC) (Primary Dx) Start: 01-04-2024 End: 01-04-2024 Patient encounter procedure Jason Will MD Work Phone: Urology Comment on above: History of bladder c ancer (Primary Dx); Screening for genitourinary condition Start: 01-04-2024 End: 01-04-2024 ambulatory Jason Will MD Work Phone: Urology Start: 12-24-2023 End: 12-24-2023 ambulatory Chair 6 Adriano Work Phone: Hematology/Oncology Comment on above: Malignant neoplasm o f overlapping sites of bladder (HCC) (Primary Dx) Start: 12-24-2023 End: 12-24-2023 Patient encounter procedure Faisal Dasilva MD Work Phone: Hematology/Oncology Start: 12-17-2023 Telephone encounter Marlee beasley PA-C [facility] Comment on above: Radiology US Start: 12-17-2023 End: 12-17-2023 ambulatory Chair 9 Adriano Work Phone: Hematology/Oncology Comment on above: Malignant neoplasm o f overlapping sites of bladder (HCC) (Primary Dx) Start: 12-17-2023 End: 12-17-2023 Office outpatient visit 15 minutes Marlee TINAJEROC Work Phone: Hematology/Oncology Comment on above: Malignant neoplasm o f overlapping sites of bladder (HCC) (Primary Dx); Swelling of joint of upper arm, right; Swelling of arm; Anemia, unspecified type Start: 12-03-2023 End: 12-03-2023 ambulatory Chair 9 [place] Work Phone: Hematology/Oncology Comment on above: Malignant neoplasm o f overlapping sites of bladder (HCC) (Primary Dx) Start: 11-26-2023 End: 11-26-2023 Social Work Anette SANTIAGO Hematology/Oncology Comment on above: Malignant neoplasm o f overlapping sites of bladder (HCC) (Primary Dx) Malignant neoplasm o f overlapping sites of bladder (HCC) (Primary Dx); Neurogenic bladder Start: 11-18-2023 Refill Faisal Dasilva MD Work Phone: Hematology/Oncology Comment on above: Refill Request Start: 11-12-2023 End: 11-12-2023 ambulatory Chair 7 [place] Work Phone: Hematology/Oncology Comment on above: Malignant neoplasm o f overlapping sites of bladder (HCC) (Primary Dx) Malignant neoplasm o f overlapping sites of bladder (HCC) (Primary Dx); Neurogenic bladder Start: 11-12-2023 End: 11-12-2023 Patient encounter procedure Faisal Dasilva MD Work Phone: Hematology/Oncology Start: 11-09-2023 Social Work Anette SANTIAGO Hematolo gy/Oncology Start: 11-07-2023 Telephone encounter Donald Se ssler RN Work Phone: Hematology/Oncology Comment on above: Care Coordination (C 1D1 Post Treatment Call) Start: 11-05-2023 End: 11-05-2023 ambulatory Chair Kassandra Oh Work Phone: Hematology/Oncology Comment on above: Malignant neoplasm o f overlapping sites of bladder (HCC) (Primary Dx) Start: 11-05-2023 End: 11-05-2023 Office outpatient visit 15 minutes Marlee TINAJEROC Work Phone: Hematology/Oncology Comment on above: Malignant neoplasm o f overlapping sites of bladder (HCC) (Primary Dx) Start: 10-31-2023 Telephone encounter Donald angel RN Work Phone: Hematology/Oncology Start: 10-30-2023 Telephone encounter Yesenia Andrew Hematology/Oncology Comment on above: Informed Consent Start: 10-24-2023 ambulatory Donald villeda RN Work Phone: Hematology/Oncology Comment on above: First Time Treatment Education (Cisplatin & Gemcitabine) Start: 10-24-2023 Telephone encounter Marlee beasley PA-C Work Phone: Hematology/Oncology Comment on above: Lab Orders Start: 10-22-2023 Telephone encounter Donald angel RN Work Phone: Hematology/Oncology Comment on above: Care Coordination (A ntiemetics) Refill Request Care Coordination (P ET Results) Start: 10-22-2023 End: 10-22-2023 ambulatory Faisal Dasilva MD Work Phone: Hematology/Oncology Comment on above: Malignant neoplasm o f overlapping sites of bladder (HCC) (Primary Dx); Neurogenic bladder; Abnormal imaging of thyroid Start: 10-22-2023 End: 10-22-2023 Patient encounter procedure Faisal Dasilva MD Work Phone: Hematology/Oncology Start: 10-16-2023 End: 10-16-2023 Subsequent hospital visit by physician Arrival Time Radiology Work Phone: Radiology Pet CT Comment on above: Malignant neoplasm o f overlapping sites of bladder (HCC) [C67.8] Start: 10-05-2023 End: 10-05-2023 Patient encounter procedure Jason Will MD Work Phone: Urology Comment on above: Acute cystitis witho ut hematuria (Primary Dx); Screening for nephropathy Start: 09-27-2023 End: 09-27-2023 ambulatory Faisal Dasilva MD Work Phone: Hematology/Oncology Comment on above: Malignant neoplasm o f overlapping sites of bladder (HCC) (Primary Dx); Neurogenic bladder Start: 09-27-2023 End: 09-27-2023 Patient encounter procedure Faisal Dasilva MD Work Phone: Hematology/Oncology Start: 09-21-2023 End: 09-21-2023 Nursing evaluation of patient and report Nurse Urol Obey Nichols Work Phone: Urology Comment on above: Malignant neoplasm o f urinary bladder, unspecified site (HCC) (Primary Dx) Start: 09-18-2023 Telephone encounter Jason velazco MD Work Phone: Urology Comment on above: Appointment Start: 09-13-2023 Telephone encounter Jason velazco MD Work Phone: Urology Comment on above: Results Start: 09-07-2023 Telephone encounter Yvette Gongora RN Urology Comment on above: Surgical Followup Start: 09-03-2023 End: 09-03-2023 Subsequent hospital visit by physician [facility] Radiology Ct Scan Comment on above: Malignant neoplasm o f urinary bladder, unspecified site (HCC) [C67.9] Start: 09-02-2023 Orders Only Mariajose Abreu BOOM OPERATOR.RETREAD SUPERVISOR Work Phone: Urology Comment on above: Bacteriuria (Primary Dx) Start: 08-29-2023 Telephone encounter Amarilis Oh RN Ur ology Comment on above: Pre-Op Teaching Start: 08-28-2023 End: 08-28-2023 Admission to establishment [facility] 1 Work Phone: Pre Anesthesia Start: 08-28-2023 End: 08-28-2023 Anesthesia consultation P[facility] 1 Work Phone: Pre Anesthesia Comment on above: Preoperative clearan ce (Primary Dx); Neurogenic bladder; Lesion of bladder Start: 08-28-2023 End: 08-28-2023 Preoperative state Pacc 1 Work Phone: [facility] Work Phone: Start: 08-27-2023 Telephone encounter Jason velazco MD Work Phone: Urology Comment on above: Surgery and PACC hernan es Start: 08-24-2023 End: 08-24-2023 Patient encounter procedure Jason Will MD Work Phone: Urology Comment on above: Malignant neoplasm o f urinary bladder, unspecified site (HCC) (Primary Dx); Diverticulum of bladder; Benign prostatic hyperplasia with urinary obstruction Start: 08-24-2023 ambulatory Jason bright MD Work Phone: Urology Start: 08-13-2023 ambulatory Antonio GARY Facili ty:[facility] Start: 08-01-2023 End: 08-02-2023 ambulatory Antonio GARY Facility:[facility] Start: 08-01-2023 End: 08-02-2023 ambulatory Antonio GARY Facility:[facility] Start: 08-01-2023 End: 08-01-2023 Lab Drop off Antonio GARY [facility] Start: 08-01-2023 End: 08-01-2023 Patient encounter procedure Antonio GARY [facility] [place] Start: 08-07-2022 End: 08-07-2022 Patient encounter procedure Antonio GARY [facility] Procedures Date Procedure Procedure Detail Performing Clinician Start: 07-14-2024 Assay of parathormone P rylan Newman DO Work Phone: Start: 06-04-2024 Ct abdomen & pelvis w/contrast material Faisal Dasilva MD Work Phone: Start: 06-04-2024 Ct thorax w/contrast material Faisal Dasilva MD Work Phone: Start: 06-04-2024 Blood count complete auto&auto difrntl wbc Paulina Sierra BOOM OPERATOR.RETREAD SUPERVISOR Work Phone: Start: 01-15-2024 Thromboplastin time partial plasma/whole blood Jason Will MD Work Phone: Start: 01-04-2024 Urnls dip stick/tabl et rgnt auto w/o microscopy Jason Will MD Work Phone: Start: 12-03-2023 Basic metabolic pane l calcium total Faisal Dasilva MD Work Phone: Start: 10-16-[address] atten uation skull base mid-thigh Faisal Dasilva MD Work Phone: Start: 10-16-2023 Gluc bld gluc mntr d ev cleared fda spec home use [facility] Provider Start: 09-03-2023 Ct abdomen & pelvis w/o contrst 1/> body re Jason Will MD Work Phone: Start: 08-28-2023 Ecg routine ecg w/le ast 12 lds i&r only [facility] Provider Start: 08-01-2023 Transurethral cystoscopy Antonio GARY Colonoscopy Antonio GARY Repair of inguinal hernia Bette GARY Plan of Treatment Date Care Activity Detail Author Start: 12-12-2027 Diabetes Screening Diabetes Screening [facility] Start: 09-12-2027 Diabetes Screening Diabetes Screening [facility] Start: 06-04-2027 Diabetes Screening Diabetes Screening [facility] Start: 03-11-2027 Diabetes Screening Diabetes Screening [facility] Start: 02-11-2027 Diabetes Screening Diabetes Screening [facility] Start: 01-14-2027 Diabetes Screening Diabetes Screening [facility] Start: 01-07-2027 Diabetes Screening Diabetes Screening [facility] Start: 12-23-2026 Diabetes Screening Diabetes Screening [facility] Start: 12-16-2026 Diabetes Screening Diabetes Screening [facility] Start: 12-02-2026 Diabetes Screening Diabetes Screening [facility] Start: 11-25-2026 Diabetes Screening Diabetes Screening [facility] Start: 11-11-2026 Diabetes Screening Diabetes Screening [facility] Start: 11-04-2026 Diabetes Screening Diabetes Screening [facility] Start: 09-06-2026 Diabetes Screening Diabetes Screening [facility] Start: 08-30-2026 Diabetes Screening Diabetes Screening [facility] Start: 08-27-2026 Diabetes Screening Diabetes Screening [facility] Start: 06-12-2025 BP Controlled (<130/80) BP Controlled (<130/80) [facility]ic Start: 03-25-2025 End: 03-25-2025 ambulatory 03/25/2025 3:00 PM EST Visit (SP) Office Hematology/Oncology [address] [place] [address] Ankit Neil MD [address] [place] [address] 3 month ANIL/BRM lab Hematology/Oncolog y Comment on above: 3 month ANIL/BRM lab Start: 03-25-2025 End: 03-25-2025 Patient encounter procedure 03/25/2025 2:45 PM EST Office Visit [facility] [address] [place] [address] 3 month ANIL/BRM lab [facility] Comment on above: 3 month ANIL/BRM lab Start: 03-06-2025 End: 03-06-2025 Patient encounter procedure Urology Comment on above: Cystoscopy Start: 02-27-2025 End: 02-27-2025 Patient encounter procedure 02/27/2025 11:30 AM EDT Office Visit Urology [address] [place] [address] [place] [address] [place] [address] CYSTOSCOPY Urology Comment on above: CYSTOSCOPY Start: 02-26-2025 End: 02-26-2025 Patient encounter procedure 02/26/2025 11:00 AM EDT Office Visit Urology [address] [place] [address] [place] [address] [place] [address] CYSTOSCOPY Urology Comment on above: CYSTOSCOPY Start: 02-05-2025 End: 02-05-2025 Patient encounter procedure 02/05/2025 9:30 AM EDT Office Visit [facility] [address] [place] [id number] Tanesha Casiano NP [address] [place] [address] [facility] Start: 01-27-2025 BP Controlled (<130/80) BP Controlled (<130/80) [facility] in Start: 01-08-2025 End: 01-08-2026 ECG 12 lead ECG 12 lead ECG Routine Heart failure, unspecified (HCC) Expected: 01/08/2025 (Approximate), Expires: 01/08/2026 [facility] Comment on above: Expected: 01/08/2025 (Approximate), Expi res: 01/08/2026 Start: 01-08-2025 End: 01-08-2026 Hemoglobin A1c/Hemoglobin.total in Blood Hemoglobin A1c Lab Routine Primary hypertension Expected: 01/08/2025 (Approximate), Expires: 01/08/2026 [facility] Work Phone: Comment on above: Expected: 01/08/2025 (Approximate), Expi res: 01/08/2026 Start: 01-08-2025 End: 01-08-2026 Lipid 1996 panel - Serum or Plasma Lipid panel Lab Routine Primary hypertension Expected: 01/08/2025 (Approximate), Expires: 01/08/2026 [facility] Comment on above: Expected: 01/08/2025 (Approximate), Expi res: 01/08/2026 Start: 01-08-2025 End: 01-08-[address] [facility] Comment on above: 1 month repeat lab Arrived Start: 01-05-2025 Influenza vaccination Influenza Vaccine (#1) [facility] Start: 01-05-2025 Urine microalbumin profile DTaP,Tdap,Td Vaccine (2 - Td or Tdap) [facility] Start: 12-11-2024 End: 12-11-2024 Follow-up encounter 12/11/2024 2:30 PM EDT Visit (SP) Office Hematology/Oncology [address] [place] [address] Jose Martin Hillman APRN.RETREAD SUPERVISOR [address] [place] [address] 3 month follow up with lab Hematology/Oncolog y Comment on above: 3 month follow up with lab Start: 12-11-2024 End: 12-11-2024 Patient encounter procedure 12/11/2024 2:15 PM EDT Office Visit [facility] [address] [place] [address] 3 month follow up with lab [facility] Comment on above: 3 month follow up with lab Start: 12-01-2024 End: 03-02-2025 CBC W Auto Differential panel - Blood COMPLETE BLOOD COUNT AND DIFFERENTIAL Lab Routine Malignant neoplasm of overlapping sites of bladder (HCC) Expected: 12/01/2024, Expires: 03/02/[address] [facility] Work Phone: Comment on above: Expected: 12/01/2024, Expires: Start: 12-01-2024 End: 03-02-2025 Comprehensive metabolic 2000 panel - Serum or Plasma COMPREHENSIVE METABOLIC PANEL Lab Routine Malignant neoplasm of overlapping sites of bladder (HCC) Expected: 12/01/2024, Expires: 03/02/2025 [facility] Comment on above: Expected: 12/01/2024, Expires: Start: 12-01-2024 End: 12-01-2024 Patient encounter procedure [facility] [place] Comment on above: Arrived Start: 11-17-2024 End: 11-17-2024 Patient encounter procedure [facility]NESTO PISANO ADRIANO Comment on above: Arrived Start: 11-11-2024 BP Controlled (<130/80) BP Controlled (<130/80) [facility] Start: 10-28-2024 End: 10-28-2024 Patient encounter procedure 10/28/2024 11:30 AM EDT Appointment [facility] Scan [id number] [place] [address] CT urogram [facility] CT Scan Comment on above: CT urogram Start: 09-26-2024 BP Controlled (<130/80) BP Controlled (<130/80) [facility] Start: 09-11-2024 End: 09-11-2024 Follow-up encounter 09/11/2024 3:00 PM EDT Visit (SP) Office Hematology/Oncology [address] [place] [address] Faisal Dasilva MD [address] [place] [address] 3 month follow up Hematology/Oncolog y Comment on above: 3 month follow up Start: 08-28-2024 End: 08-28-2024 Patient encounter procedure 08/28/2024 2:00 PM EDT Office Visit Urology [address] [place] [address] Jason Will MD [address] [place] [address] Cystoscopy Urology Comment on above: Cystoscopy Start: 08-22-2024 End: 08-22-2024 Patient encounter procedure 08/22/2024 2:00 PM EDT Office Visit Urology [address] [place] [address] Jason Will MD [address] [place] [address] Cystoscopy Urology Comment on above: Cystoscopy Start: 08-18-2024 End: 08-18-2024 Patient encounter procedure [place] Comment on above: Arrived Start: 08-04-2024 End: 08-04-2024 Patient encounter procedure [place] [place] Comment on above: Arrived Start: 07-28-2024 Covid-19 Vaccine (8 - Pfizer risk season) Covid-19 Vaccine (8 - Pfizer risk ) [facility] Start: 06-12-2024 End: 06-12-2024 Follow-up encounter 06/12/2024 3:00 PM EST Visit (SP) Office Hematology/Oncology [address] [place] [address] Faisal Dasilva MD [address] [place] [address] 3 month follow up after scans Hematology/Oncolog y Comment on above: 3 month follow up after scans Start: 06-04-2024 End: 09-03-2024 CBC W Auto Differential panel - Blood COMPLETE BLOOD COUNT AND DIFFERENTIAL Lab Routine Neoplasm of bladder Expected: 06/04/2024 (Approximate), Expires: 09/03/2024 [facility] Comment on above: Expected: 06/04/2024 (Approximate), Expi res: 09/03/2024 Start: 06-04-2024 End: 09-03-2024 Comprehensive metabolic 2000 panel - Serum or Plasma COMPREHENSIVE METABOLIC PANEL Lab Routine Neoplasm of bladder Expected: 06/04/2024 (Approximate), Expires: 09/03/[address] [facility] Work Phone: Comment on above: Expected: 06/04/2024 (Approximate), Expi res: 09/03/2024 Start: 06-04-2024 End: 06-04-2024 Patient encounter procedure 06/04/2024 10:15 AM EST Appointment Radiology Pet CT [address] [place] [address] CT CAP W IV CON and labs Radiology Pet CT Comment on above: CT CAP W IV CON and labs Start: 05-07-2024 Advance Directive Discussion Advance Directive Discussion [facility] Start: 03-25-2024 Covid-19 Vaccine ( season) Covid-19 Vaccine () [facility] Start: 03-11-2024 End: 03-11-2024 Follow-up encounter 03/11/2024 3:00 PM EST Visit (SP) Office Hematology/Oncology [address] [place] [address] Faisal Dasilva MD [address] [place] [address] lab follow up, no tx this day Hematology/Oncolog y Comment on above: lab follow up, no tx this day Start: 03-11-2024 End: 03-11-2024 Patient encounter procedure 03/11/2024 2:45 PM EST Office Visit [facility] [address] [place] [address] [place] [address] lab follow up, no tx this day [facility] Comment on above: lab follow up, no tx this day Start: 03-11-2024 End: 06-10-2024 CBC W Auto Differential panel - Blood COMPLETE BLOOD COUNT AND DIFFERENTIAL Lab Routine Malignant neoplasm of overlapping sites of bladder (HCC) Expected: 03/11/2024 (Approximate), Expires: 06/10/2024 [facility] Comment on above: Expected: 03/11/2024 (Approximate), Expi res: 06/10/2024 Start: 03-11-2024 End: 06-10-2024 Comprehensive metabolic 2000 panel - Serum or Plasma COMPREHENSIVE METABOLIC PANEL Lab Routine Malignant neoplasm of overlapping sites of bladder (HCC) Expected: 03/11/2024 (Approximate), Expires: 06/10/[address] [facility] Work Phone: Comment on above: Expected: 03/11/2024 (Approximate), Expi res: 06/10/2024 Start: 02-18-2024 End: 02-18-2024 Admission to same day surgery center [facility] Operating Room Comment on above: CYSTOURETHROSCOPY W/FULGURATION &/OR RES ECTION MEDIUM BLADDER TUMOR(S) 2.0 - 5.0 CM W/SALINE BIPOLAR Start: 02-18-2024 End: 02-18-2024 Cystourethroscopy w/dest &/rmvl med bladder jocy [facility] OR Start: 02-18-2024 Subsequent hospital visit by physician [facility] Operating Room Comment on above: Neoplasm of bladder [D49.4] Start: 02-12-2024 End: 02-12-2024 Follow-up encounter Hematology/Oncolog y Comment on above: 5 week Follow Up lab Chemotx Cisplatin + Gemzar lab follow up, no tx this day Start: 02-12-2024 End: 02-12-[address] [facility] Comment on above: 5 week Follow Up lab Chemotx Cisplatin + Gemzar lab follow up, no tx this day Start: 01-28-2024 End: 01-28-2024 Anesthesia consultation 01/28/2024 2:20 PM EDT PAT Pre Anesthesia [address] [place] [address] CYSTOURETHROSCOPY W/FULGURATION &/OR RESECTION MEDIUM BLADDER TUMOR(S) 2.0 - 5.0 CM W/SALINE BIPOLAR [[id number]] - Bladder - N/A Pre Anesthesia Comment on above: CYSTOURETHROSCOPY W/FULGURATION &/OR RES ECTION MEDIUM BLADDER TUMOR(S) 2.0 - 5.0 CM W/SALINE BIPOLAR [[id number]] - Bladder - N/A Start: 01-28-2024 End: 04-28-2024 CBC panel - Blood by Automated count [facility] Work Phone: Comment on above: Expected: 01/28/2024, Expires: Start: 01-15-2024 End: 01-15-2024 ambulatory 01/15/2024 9:30 AM EDT [facility] Hematology/Oncology [address] [place] [address] [place] [address] 1 week lab Chemotx Cisplatin + Gemzar Hematology/Oncolog y Comment on above: 1 week lab Chemotx Cisplatin + Gemzar Start: 01-08-2024 End: 01-08-2024 Follow-up encounter Hematology/Oncolog y Comment on above: 2 week Follow Up lab Chemotx Cisplatin + Gemzar Start: 01-08-2024 End: 01-08-2024 Patient encounter procedure 01/08/2024 8:45 AM EDT Office Visit [facility] [address] [place] [address] [place] [address] 2 week Follow Up lab Chemotx Cisplatin + Gemzar [facility] Comment on above: 2 week Follow Up lab Chemotx Cisplatin + Gemzar Start: 01-06-2024 Covid-19 Vaccine () Covid-19 Vaccine () [facility] Start: 01-06-2024 Covid-19 Vaccine () Covid-19 Vaccine () [facility] Start: 01-06-2024 Influenza vaccination [facility] Start: 01-04-2024 End: 04-04-2024 aPTT in Platelet poor plasma by Coagulation assay ACTIVATED PARTIAL THROMBOPLASTIN TIME Lab Routine Neoplasm of bladder Abnormal coagulation profile Expected: 01/04/2024, Expires: 04/04/2024 [facility] Comment on above: Expected: 01/04/2024, Expires: Start: 01-04-2024 End: 04-04-2024 Bacteria identified in Urine by Culture URINE CULTURE Microbiology Routine Neoplasm of bladder Abnormal urine levels of substances chiefly nonmedicinal as to source Expected: 01/04/2024, Expires: 04/04/2024 [facility] Comment on above: Expected: 01/04/2024, Expires: Start: 01-04-2024 End: 04-04-2024 CBC W Auto Differential panel - Blood COMPLETE BLOOD COUNT AND DIFFERENTIAL Lab Routine Neoplasm of bladder Expected: 01/04/2024, Expires: 04/04/[address] [facility] Work Phone: Comment on above: Expected: 01/04/2024, Expires: Start: 01-04-2024 End: 04-04-2024 Comprehensive metabolic 2000 panel - Serum or Plasma COMPREHENSIVE METABOLIC PANEL Lab Routine Neoplasm of bladder Expected: 01/04/2024, Expires: 04/04/2024 [facility] Comment on above: Expected: 01/04/2024, Expires: Start: 01-04-2024 End: 01-04-2024 Patient encounter procedure 01/04/2024 2:00 PM EDT Office Visit Urology [address] [place] [address] Jason Will MD [address] [place] [address] Cystoscopy Urology Comment on above: Cystoscopy Start: 01-04-2024 End: 04-04-2024 PT panel - Platelet poor plasma by Coagulation assay PROTHROMBIN TIME Lab Routine Neoplasm of bladder Expected: 01/04/2024, Expires: 04/04/2024 [facility] Comment on above: Expected: 01/04/2024, Expires: Start: 12-17-2023 End: 12-17-2023 Follow-up encounter Hematology/Oncolog y Comment on above: lab follow up and chemotx Cisplatin + Ge mzar Start: 12-17-2023 End: 12-17-2023 Patient encounter procedure 12/17/2023 10:15 AM EDT Office Visit [facility] [address] [place] [address] [place] [address] lab follow up and chemotx Cisplatin + Gemzar [facility] Comment on above: lab follow up and chemotx Cisplatin + Ge mzar Start: 12-03-2023 End: 12-03-2023 ambulatory 12/03/2023 10:30 AM EDT [facility] Hematology/Oncology [address] [place] [address] chemotx Cisplatin + Gemzar Hematology/Oncolog y Comment on above: chemotx Cisplatin + Gemzar Start: 11-12-2023 End: 11-12-2023 Follow-up encounter Hematology/Oncolog y Comment on above: lab follow up and chemotx Cisplatin + Ge mzar (brm patient) lab follow up and ch emotx Cisplatin + Gemzar Start: 11-12-2023 End: 11-12-2023 Patient encounter procedure 11/12/2023 8:45 AM EDT Office Visit [facility] [address] [place] [address] lab follow up and chemotx Cisplatin + Gemzar [facility] Comment on above: lab follow up and chemotx Cisplatin + Ge mzar Start: 11-05-2023 End: 02-04-2024 CBC W Auto Differential panel - Blood COMPLETE BLOOD COUNT AND DIFFERENTIAL Lab Routine Malignant neoplasm of overlapping sites of bladder (HCC) Expected: 11/05/2023, Expires: 02/04/2024 [facility] Comment on above: Expected: 11/05/2023, Expires: 4 Start: 11-05-2023 End: 02-04-2024 Comprehensive metabolic 2000 panel - Serum or Plasma COMPREHENSIVE METABOLIC PANEL Lab Routine Malignant neoplasm of overlapping sites of bladder (HCC) Expected: 11/05/2023, Expires: 02/04/[address] [facility] Work Phone: Comment on above: Expected: 11/05/2023, Expires: 4 Start: 11-05-2023 End: 02-04-2024 Magnesium [Mass/volume] in Serum or Plasma MAGNESIUM Lab Routine Malignant neoplasm of overlapping sites of bladder (HCC) Expected: 11/05/2023, Expires: 02/04/2024 [facility] Comment on above: Expected: 11/05/2023, Expires: 4 Start: 11-05-2023 End: 11-05-2023 Follow-up encounter Hematology/Oncolog y Comment on above: lab follow up and chemotx Cisplatin + Ge mzar (brm patient) lab follow up and ch emotx Cisplatin + Gemzar Start: 11-05-2023 End: 11-05-2023 Patient encounter procedure 11/05/2023 10:45 AM EDT Office Visit [facility] [address] [place] [address] lab follow up and chemotx Cisplatin + Gemzar [facility] Comment on above: lab follow up and chemotx Cisplatin + Ge mzar Start: 10-24-2023 End: 01-23-2024 CBC W Auto Differential panel - Blood COMPLETE BLOOD COUNT AND DIFFERENTIAL Lab Routine Malignant neoplasm of overlapping sites of bladder (HCC) Expected: 10/24/2023, Expires: 01/23/2024 [facility] Comment on above: Expected: 10/24/2023, Expires: Start: 10-24-2023 End: 01-23-2024 Comprehensive metabolic 2000 panel - Serum or Plasma COMPREHENSIVE METABOLIC PANEL Lab Routine Malignant neoplasm of overlapping sites of bladder (HCC) Expected: 10/24/2023, Expires: 01/23/[address] [facility] Work Phone: Comment on above: Expected: 10/24/2023, Expires: 4 Start: 10-24-2023 End: 01-23-2024 Magnesium [Mass/volume] in Serum or Plasma MAGNESIUM Lab Routine Malignant neoplasm of overlapping sites of bladder (HCC) Expected: 10/24/2023, Expires: 01/23/2024 [facility] Comment on above: Expected: 10/24/2023, Expires: Start: 10-24-2023 End: 10-24-2023 Nursing evaluation of patient and report 10/24/2023 11:00 AM EDT Nurse Visit Hematology/Oncology [address] [place] [address] Donald Perez, HANK [address] [place] [address] [place] [address] Cisplatin + Gemzar Hematology/Oncolog y Comment on above: Cisplatin + Gemzar Start: 10-22-2023 End: 10-22-2023 Follow-up encounter 10/22/2023 10:45 AM EDT Visit (SP) Office Hematology/Oncology [address] [place] [address] Faisal Dasilva MD [address] [place] [address] Follow up for pet scan results Hematology/Oncolog y Comment on above: Follow up for pet scan results Start: 10-16-2023 End: 10-16-2023 Patient encounter procedure 10/16/2023 1:30 PM EDT Appointment Radiology Pet CT [address] [place] [address] Pet [address] Comment on above: Pet scan Start: 10-05-2023 End: 10-05-2023 Patient encounter procedure 10/05/2023 3:00 PM EDT Office Visit Urology [address] [place] [address] Jason Will MD [address] [place], [place] [id number] Stent extraction Per Dr. Will Urology Comment on above: Stent extraction Per Dr. Will Start: 09-27-2023 End: 09-27-2023 ambulatory 09/27/2023 11:00 AM EDT Visit (SP) Office Hematology/Oncology [address] [place] [address] Faisal Dasilva MD [address] [place] [address] New pt - Dx: urothelial carcinoma; discuss adjuvant therapeutic options - Referred by Dr. Jason Delacruz MD Pt's chose this date due to pt having catheter taking out on 09/20, prefers this day!! Hematology/Oncolog y Comment on above: New pt - Dx: urothelial carcinoma; discu ss adjuvant therapeutic options - Referred by Dr. Jason Delacruz MD Pt's chose this date due to pt having catheter taking out on 09/20, prefers this day!! Start: 09-21-2023 End: 09-21-2023 Nursing evaluation of patient and report 09/21/2023 9:00 AM EDT Nurse Visit Urology [address] [place] [address] Mob, Nurse Urol Fairvw [address] [place] [address] TOV 09/20 Urology Comment on above: TOV 09/20 Start: 09-06-2023 End: 09-06-2023 Admission to same day surgery center 09/06/2023 11:15 AM EDT - 09/06/2023 5:00 PM EDT Surgery [facility] Operating Room [address] [place] [address] Jason Will MD [address] [place] [address] ROBOTIC LAPAROSCOPIC EXCISION BLADDER DIVERTICULUM,SINGLE OR MULTIPLE [facility] Operating Room Comment on above: ROBOTIC LAPAROSCOPIC EXCISION BLADDER DI VERTICULUM,SINGLE OR MULTIPLE Start: 09-06-2023 Subsequent hospital visit by physician [facility] Operating Room Comment on above: Neoplasm of bladder [D49.4] Start: 09-06-2023 End: 09-06-2023 Unlisted laparoscopy procedure bladder ROBOTIC LAPAROSCOPIC EXCISION BLADDER DIVERTICULUM,SINGLE OR MULTIPLE Neoplasm of bladder 09/06/2023 11:15 AM EDT [facility] OR Start: 09-03-2023 End: 09-03-2023 Patient encounter procedure 09/03/2023 2:00 PM EDT Appointment Radiology Ct Scan [address] [place] [address] [place] [address] Scan Comment on above: CT UROGRAM Start: 08-31-2023 End: 08-31-2023 Patient encounter procedure 08/31/2023 9:00 AM EDT Office Visit [facility] [address] [place] [address] [place] [address] [facility] Comment on above: UA sample Start: 08-28-2023 End: 08-28-2023 Anesthesia consultation 08/28/2023 12:00 PM EDT PAT Pre Anesthesia [address] [place] [address] Procedure: ROBOTIC LAPAROSCOPIC EXCISION BLADDER DIVERTICULUM,SINGLE OR MULTIPLE Pre Anesthesia Comment on above: Procedure: ROBOTIC LAPAROSCOPIC EXCISION BLADDER DIVERTICULUM,SINGLE OR MULTIPLE Start: 08-24-2023 End: 11-23-2023 aPTT in Platelet poor plasma by Coagulation assay ACTIVATED PARTIAL THROMBOPLASTIN TIME Lab Routine Malignant neoplasm of overlapping sites of bladder (HCC) Neoplasm of bladder Abnormal coagulation profile Expected: 08/24/2023, Expires: 11/23/[address] [facility] Work Phone: Comment on above: Expected: 08/24/2023, Expires: 4 Start: 08-24-2023 End: 11-23-2023 Bacteria identified in Urine by Culture URINE CULTURE Microbiology Routine Malignant neoplasm of overlapping sites of bladder (HCC) Neoplasm of bladder Abnormal urine levels of substances chiefly nonmedicinal as to source Expected: 08/24/2023, Expires: 11/23/[address] [facility] Work Phone: Comment on above: Expected: 08/24/2023, Expires: 4 Start: 08-24-2023 End: 11-23-2023 CBC W Auto Differential panel - Blood COMPLETE BLOOD COUNT AND DIFFERENTIAL Lab Routine Malignant neoplasm of overlapping sites of bladder (HCC) Neoplasm of bladder Expected: 08/24/2023, Expires: 11/23/[address] [facility] Work Phone: Comment on above: Expected: 08/24/2023, Expires: Start: 08-24-2023 End: 11-23-2023 Comprehensive metabolic 2000 panel - Serum or Plasma COMPREHENSIVE METABOLIC PANEL Lab Routine Malignant neoplasm of overlapping sites of bladder (HCC) Neoplasm of bladder Expected: 08/24/2023, Expires: 11/23/[address] [facility] Work Phone: Comment on above: Expected: 08/24/2023, Expires: Start: 08-24-2023 End: 11-23-2023 CONFIRM BLOOD TYPE CONFIRM BLOOD TYPE Blood Bank Routine Malignant neoplasm of overlapping sites of bladder (HCC) Neoplasm of bladder Expected: 08/24/2023, Expires: 11/23/[address] [facility] Work Phone: Comment on above: Expected: 08/24/2023, Expires: Start: 08-24-2023 End: 11-23-2023 PT panel - Platelet poor plasma by Coagulation assay PROTHROMBIN TIME Lab Routine Malignant neoplasm of overlapping sites of bladder (HCC) Neoplasm of bladder Expected: 08/24/2023, Expires: 11/23/[address] [facility] Work Phone: Comment on above: Expected: 08/24/2023, Expires: 4 Start: 08-24-2023 End: 11-23-2023 TYPE AND SCREEN,30 DAY TYPE AND SCREEN,30 DAY Blood Bank Routine Malignant neoplasm of overlapping sites of bladder (HCC) Neoplasm of bladder Expected: 08/24/2023, Expires: 11/23/[address] [facility] Work Phone: Comment on above: Expected: 08/24/2023, Expires: 4 Start: 06-22-2023 Covid-19 Vaccine () Covid-19 Vaccine () [facility] Start: 05-07-2023 Advance Directive Discussion Advance Directive Discussion [facility] Start: 05-07-2023 Behavioral Health Screening Behavioral Health Screening [facility] Start: 04-16-2023 Covid-19 Vaccine () Covid-19 Vaccine () [facility] Start: 12-01-2019 Shingrix Vaccine (2 of 2) Shingrix Vaccine (2 of 2) [facility] Start: 01-10-2017 Pneumococcal Vaccine: 65+ (2 of 2 - PCV) Pneumococcal Vaccine: 65+ (2 of 2 - PCV) [facility] Start: 04-06-2010 Medicare Annual Wellness Visit Medicare Annual Wellness Visit [facility] Start: 1990 Diabetes Screening Diabetes Screening [facility] Start: 1963 Annual PCP Team Chronic Disease Visit Annual PCP Team Chronic Disease Visit [facility] Start: 1963 Anxiety Screening Anxiety Screening [facility] Start: 1963 BP Controlled (<130/80) BP Controlled (<130/80) [facility] Start: 1963 Depression Screening Depression Screening [facility] Start: 1963 Hepatitis C screening Hepatitis C Screening [facility] Bacteria identified in Urine by Culture URINE CULTURE Microbiology Routine Acute cystitis without hematuria 10/05/2023 2:53 PM EDT [facility] Work Phone: Bacteria identified in Urine by Culture URINE CULTURE Microbiology Routine Neoplasm of bladder Abnormal urine levels of substances chiefly nonmedicinal as to source 01/15/2024 10:09 AM EDT [facility] Work Phone: End: 12-16-2024 CBC W Auto Differential panel - Blood COMPLETE BLOOD COUNT AND DIFFERENTIAL Lab Routine Malignant neoplasm of overlapping sites of bladder (HCC) Every other week for 2 Occurrences starting 12/17/2023 until 12/16/2024 [facility] Comment on above: Every other week for 2 Occurrences start ing 12/17/2023 until 12/16/2024 End: 12-16-2024 Comprehensive metabolic 2000 panel - Serum or Plasma COMPREHENSIVE METABOLIC PANEL Lab Routine Malignant neoplasm of overlapping sites of bladder (HCC) Every other week for 2 Occurrences starting 12/17/2023 until 12/16/[address] [facility] Work Phone: Comment on above: Every other week for 2 Occurrences start ing 12/17/2023 until 12/16/2024 End: 04-10-2025 CT Abdomen and Pelvis W contrast IV CT ABD/PEL W IVCON Radiology Routine Malignant neoplasm of overlapping sites of bladder (HCC) 1 Occurrences starting 03/11/2024 until 04/10/[address] [facility] Work Phone: Comment on above: 1 Occurrences starting 03/11/2024 until 04/10/2025 End: 04-10-2025 CT Chest W contrast IV CT CHEST W IVCON Radiology Routine Malignant neoplasm of overlapping sites of bladder (HCC) 1 Occurrences starting 03/11/2024 until 04/10/2025 [facility] Comment on above: 1 Occurrences starting 03/11/2024 until 04/10/2025 End: 09-22-2024 CT Kidney WO and W contrast IV CT UROGRAM WO/W IVCON Radiology Routine Malignant neoplasm of urinary bladder, unspecified site (HCC) 1 Occurrences starting 08/24/2023 until 09/22/[address] 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 Work Phone: Cystourethroscopy w/ dest &/rmvl med bladder jocy CYSTOURETHROSCOPY W/FULGURATION &/OR RESECTION MEDIUM BLADDER TUMOR(S) 2.0 - 5.0 CM W/SALINE BIPOLAR Neoplasm of bladder FV OR CYTOLOGY NON-ICT SYSTEMS TEST ENGINEER CYTOLOGY NON-GY N Lab Routine History of bladder cancer 01/04/2024 2:22 PM EDT [facility] Work Phone: ECG COMPLETE [facility] Work Phone: Comment on above: Ordered: 08/28/2023 End: 12-16-2024 Magnesium [Mass/volume] in Serum or Plasma MAGNESIUM Lab Routine Malignant neoplasm of overlapping sites of bladder (HCC) Every other week for 2 Occurrences starting 12/17/2023 until 12/16/2024 [facility] Comment on above: Every other week for 2 Occurrences start ing 12/17/2023 until 12/16/2024 End: 10-26-2024 PET+CT Guidance for localization of tumor of Skull base to mid-thigh-- W 18F-FDG IV NM PET/CT SKULL-THIGH INITIAL Radiology Routine Malignant neoplasm of overlapping sites of bladder (HCC) 1 Occurrences starting 09/27/2023 until 10/26/[address] [facility] Work Phone: Comment on above: 1 Occurrences starting 09/27/2023 until 10/26/2024 Thyrotropin [Units/v olume] in Serum or Plasma T4 Lab Routine 07/14/2024 11:13 AM EDT [facility] Work Phone: Unlisted laparoscopy procedure bladder ROBOTIC LAPAROSCOPIC EXCISION BLADDER DIVERTICULUM,SINGLE OR MULTIPLE Neoplasm of bladder [facility] OR End: 07-12-2025 US Thyroid gland US THYROID/PARATHYROID Radiology Routine Abnormal imaging of thyroid 1 Occurrences starting 06/12/2024 until 07/12/[address] [facility] Work Phone: Comment on above: 1 Occurrences starting 06/12/2024 until 07/12/2025 End: 01-15-2025 US Upper extremity vein - right US DVT UPPER RIGHT Radiology STAT Malignant neoplasm of overlapping sites of bladder (HCC) Swelling of arm 1 Occurrences starting 12/17/2023 until 01/15/2025 [facility] Comment on above: 1 Occurrences starting 12/17/2023 until 01/15/2025 [facility] Immunizations Immunization Date Immunization Notes Care Provider Fa jodi 01-29-2024 COVID-19 vaccine, ag e 12+ yr (PFIZER-BIONTECH COMIRNATY) Marlee Dan PA-C Work Phone: [facility] 01-29-2024 influenza, high dose seasonal, preservative-free Marlee Dan PA-C Work Phone: [facility] 01-29-2024 influenza virus vaccine, unspecified formulation Rubén Newman DO Work Phone: [facility] 02-19-2023 COVID-19 vaccine, ag e 12+ yr, season (PFIZER-BIONTECH) Faisal Dasilva MD Work Phone: [facility] 02-19-2023 respiratory syncytia l virus (RSV) vaccine, bivalent (ABRYSVO) Faisal Dasilva MD Work Phone: [facility] 02-14-2023 influenza nasal, unspecified formulation Faisal Dasilva MD Work Phone: [facility] 02-14-2023 influenza virus vaccine, unspecified formulation Marlee Dan PA-C Work Phone: [facility] 02-04-2023 influenza nasal, unspecified formulation Faisal Dasilva MD Work Phone: [facility] 02-04-2023 influenza virus vaccine, unspecified formulation Marlee Dan PA-C Work Phone: [facility] 04-10-2022 pneumococcal conjuga te (PCV15) vaccine, 15 valent (VAXNEUVANCE) Marlee Dan PA-C Work Phone: [facility] 02-01-2022 influenza (HD-IIV4) vaccine, age 65+ yr, high dose, quadrivalent, PF (FLUZONE HIGH-DOSE) Faisal Dasilva MD Work Phone: [facility] 02-01-2022 influenza nasal, unspecified formulation Faisal Dasilva MD Work Phone: [facility] 02-01-2022 influenza virus vaccine, unspecified formulation Antoniojerome GARY [facility] 02-01-2022 SARS-CoV-2 (COVID-19 ) [id number] Antonio GARY [facility] 08-22-2021 COVID-19 original vaccine, age 12+ yr, monovalent (PFIZER-BIONTECH - REYES TOP) Faisal Dasilva MD Work Phone: [facility] 08-22-2021 SARS-CoV-2 mRNA (ppqamnsafwk-ajxy-qdbrq se) vaccine Antonio ABDIRAHMAN [facility] 02-01-2021 SARS-CoV-2 (COVID-19 ) mRNA BNT-162b2 vax Antoniojerome GARY [facility] 01-17-2021 influenza (HD-IIV4) vaccine, age 65+ yr, high dose, quadrivalent, PF (FLUZONE HIGH-DOSE) Faisal Dasilva MD Work Phone: [facility] 01-17-2021 influenza nasal, unspecified formulation Faisal Dasilva MD Work Phone: [facility] 01-17-2021 influenza virus vaccine, unspecified formulation Antonio GARY [facility] 01-05-2021 influenza nasal, unspecified formulation Faisal Dasilva MD Work Phone: [facility] 01-05-2021 influenza virus vaccine, unspecified formulation Marlee Dan PA-C Work Phone: [facility] 06-28-2020 SARS-CoV-2 (COVID-19 ) mRNA BNT-162b2 vax Antonio ABDIRAHMAN [facility] Comment on above: Result Comment: 2022: [id number] 06-07-2020 SARS-CoV-2 (COVID-19 ) mRNA BNT-162b2 vax Antonio GARY [facility] Comment on above: Result Comment: 2022: [id number] 05-07-2020 SARS-CoV-2 (COVID-19 ) mRNA BNT-162b2 vax Antonio GARY [facility] Comment on above: Result Comment: pt h as had 3 shots to date 10-06-2019 zoster vaccine recombinant Faisal Dasilva MD Work Phone: [facility] 04-08-2019 zoster vaccine recombinant Faisal Dasilva MD Work Phone: [facility] 02-04-2019 influenza nasal, unspecified formulation Faisal Dasilva MD Work Phone: [facility] 02-04-2019 influenza virus vaccine, unspecified formulation Marlee Toroer DEBBIE Work Phone: [facility] 02-04-2017 influenza nasal, unspecified formulation Faisal Dasilva MD Work Phone: [facility] 02-04-2017 influenza virus vaccine, unspecified formulation Marlee Toroer PA-C Work Phone: [facility] 01-31-2017 influenza virus vaccine, unspecified formulation Antonio GARY [facility] 01-31-2017 influenza, injectabl e, quadrivalent, contains preservative Faisal Dasilva MD Work Phone: [facility] 02-02-2016 influenza virus vaccine, unspecified formulation Antonio GARY [facility] 02-02-2016 influenza, injectabl e, quadrivalent, preservative free Faisal Dasilva MD Work Phone: [facility] 01-11-2016 pneumococcal polysaccharide vaccine, 23 valent Faisal Dasilva MD Work Phone: [facility] 01-11-2016 pneumococcal vaccine , unspecified formulation Faisal Dasilva MD Work Phone: [facility] 01-05-2015 tetanus toxoid, redu reed diphtheria toxoid, and acellular pertussis vaccine, adsorbed Faisal Dasilva MD Work Phone: [facility] 02-04-2014 influenza nasal, unspecified formulation Faisal Dasilva MD Work Phone: [facility] 02-04-2014 influenza virus vaccine, unspecified formulation Marlee Chantelle PA-C Work Phone: [facility] 02-13-2013 influenza nasal, unspecified formulation Faisal Dasilva MD Work Phone: [facility] 02-13-2013 influenza virus vaccine, unspecified formulation Marlee Hcantelle PA-C Work Phone: [facility] 01-29-2013 influenza virus vaccine, whole virus Faisal Dasilva MD Work Phone: [facility] 01-29-2013 influenza, whole Antonio COY ERS [facility] 02-06-2012 influenza virus vaccine, whole virus Faisal Dasilva MD Work Phone: [facility] 02-06-2012 influenza, whole Antonio COY ERS [facility] 01-05-2011 influenza nasal, unspecified formulation Faisal Dasilva MD Work Phone: [facility] 01-05-2011 influenza virus vaccine, unspecified formulation Marlee Chantelle PA-C Work Phone: [facility] 12-05-2010 pneumococcal vaccine , unspecified formulation Faisal Dasilva MD Work Phone: [facility] 02-04-2010 influenza nasal, unspecified formulation Faisal Dasilva MD Work Phone: [facility] 02-04-2010 influenza virus vaccine, unspecified formulation Marlee Chantelle PA-C Work Phone: [facility] 02-18-2009 influenza nasal, unspecified formulation Faisal Dasilva MD Work Phone: [facility] 02-18-2009 influenza virus vaccine, unspecified formulation Marlee Dan PA-C Work Phone: [facility] Payers Date Payer Category Payer Self-pay 2023 Private Health Insurance [id number] 2023 Unknown [id number] 2010 Medicare [id number] 2010 Medicare [id number] 1945 Unknown [id number] 2.16.8 [id number] 1945 Unknown [id number] 2.16.8 [id number] 1945 Unknown [id number] 2.16.8 [id number] 1945 Unknown [id number] 2.16.8 [id number] 1945 Unknown [id number] 2.16.8 [id number] 1945 Unknown [id number] 2.16.84 [id number] 1945 Unknown [id number] 2.16.84 [id number] 1945 Unknown [id number] 2.16.84 [id number] Unknown [id number] 2.16.8 [id number] Unknown [id number] 2.16.8 [id number] Unknown [id number] 2.16.8 [id number] Social History Date Type Detail Facility Start: 08-07-2022 End: 07-14-2024 Tobacco smoking status Never smoked tobacco (finding) [facility] Start: 08-01-2023 Tobacco smoking status Never [facility] Start: 08-24-2023 End: 01-08-2025 Sex Assigned At Male [facility] Start: 08-24-2023 End: 07-14-2024 Tobacco use and exposure Smokeless tobacco non-user [facility] Start: 08-24-2023 End: 01-08-2025 History of Social function [facility] Start: 1945 Sex Assigned At Not on file [facility] Start: 08-28-2023 End: 01-08-2025 Alcohol intake Ex-drinker (finding) [facility] Start: 1945 Sex Assigned At Male [facility] Start: 08-28-2023 Gender identity Identifies as male gender (finding) [facility] Tobacco smoking status NHIS Unknown if ever smoked [facility] Work Phone: Start: 07-15-2024 End: 08-05-2024 Sex Male (finding) [facility] Are you now , , , , never or living with a partner? [facility] How often to you have a drink containing alcohol? Never [facility] (I/We) worried whether (my/our) food would run out before (I/we) got money to buy more. Never true [facility] Start: 01-08-2025 Alcohol Comment Caffine: occassional ly [facility] NEGATED: Highlighted rowStart: NINF History of tobacco use Passive smoker [facility] Medical Equipment Procedure Code Equipment Code Equipment Origin al Text Equipment Identifier Dates Stent Inlay Opti ma 6fr Taper Eagle Green Polymer Phreecoat 28cm Ureteral - [id number] Start: 09-06-2023 Functional Status Date Assessment Result Facility 09-07-2023 Are you deaf, or do you have serious difficulty hearing No 09/07/2023 1:48 PM EDT Bal Garcia RN No [facility] 09-07-2023 Are you blind, or do you have serious difficulty seeing, even when wearing glasses No 09/07/2023 1:48 PM EDT Bal Garcia RN No [facility] 09-07-2023 Do you have serious difficulty walking or climbing stairs No 09/07/2023 1:48 PM EDT Bal Garcia RN No [facility] 09-07-2023 Do you have difficul ty dressing or bathing No 09/07/2023 1:48 PM EDT Bal Garcia RN No [facility] 09-07-2023 Because of a physica l, mental, or emotional condition, do you have difficulty doing errands alone such as visiting a physician's office or shopping No 09/07/2023 1:48 PM EDT Bal Garcia RN No [facility] 08-01-2023 Functional Status N/A [facility] 08-07-2022 Functional Status N/A [facility] Mental Status Date Assessment Result Facility 09-07-2023 Because of a physica l, mental, or emotional condition, do you have serious difficulty concentrating, remembering, or making decisions No 09/07/2023 1:48 PM EDT Bal Garcia RN [facility] Clinical Notes 08-07-2022 to 01-08-2025 Tanesha Casiano NP - 01/08/2025 10:00 AM EDTTelephone Encounter - Jose Martin Hillman APRN.BILLY - 12/15/2024 1:11 PM EDTTelephone Encounter - Jose Martin Hillman APRN.BILLY - 12/15/2024 1:11 PM EDT Note Date & Type Note Facility 01-08-2025 History of Present illness Narrative Images from the original note were not included. Subjective ?Quick Links Last Note in Specialty Snapshot Edit RFV/CC Edit Screenings Current Meds Patient ID: Jolly Sierra is a 79 y.o. male who presents for Establish Care. HPI History of Present Illness Mr. Sierra is a 79 yo pleasant male who comes to the office as a new patient to establish care. He has a history of heart failure, hypertension, hyperlipidemia, as well as a recent history of bladder and cancer that he is following with the [facility] closely for. He had surgery in 2023 to remove tumors. He also has thyroid nodules and is following with Dr. Borja (ENT) for further evaluation. Additionally[facility] [place] [facility], he gets his meds from there and sees them 1 x yearly. He does not have any specific concerns today. The only medication he is currently taking is his Enestro, he is not sure why he isn't taking his other medications. He is , lives in [place]. Does not drink alcohol, smoker (never), or use drugs. He had labs drawn 12/11/24. He also brought a record of his Bps, he monitors it several times a week. His most recent Bps have been between 127/68- 164/73. MEDICATIONS Current: Entresto Discontinued: Crestor, ramipril, Altace, spironolactone ?Quick Review Review Full History Meds - sacubitril-valsartan (Entresto) 24-26 MG tablet spironolactone (Aldactone) 50 MG tablet --- PMH - Antineoplastic chemotherapy induced anemia Astigmatism Bladder diverticulum Dermatochalasis Encounter for other administrative examinations Exposure to potentially hazardous substance HLD (hyperlipidemia) HTN (hypertension) Malignant neoplasm of overlapping sites of bladder (HCC) Neurogenic bladder Ocular hypertension Ocular hypertension, bilateral Pancreatitis ([facility]-HCC) Presbyopia Objective ?Quick Links Add Vitals Timeline (Adult) Labs Imaging Results Review Trend Vitals ?? Avoid pulling in long tables of results. Comment on relevant results to support your medical decision making. BP 152/72 Pulse 81 Temp 97.3 F Ht 5' 9 Wt 195 lb 6.4 oz SpO2 96% BMI 28.86 kg/m Physical Exam Vitals reviewed. Constitutional: Appearance: Normal appearance. Cardiovascular: Rate and Rhythm: Normal rate. Pulmonary: Effort: Pulmonary effort is normal. Breath sounds: Normal breath sounds. Skin: General: Skin is warm and dry. Neurological: General: No focal deficit present. Mental Status: He is alert. Psychiatric: Mood and Affect: Mood normal. Behavior: Behavior normal. Thought Content: Thought content normal. Judgment: Judgment normal. Physical Exam ?Quick Links Full Problem List Cardiology Assessment & Plan Heart failure, unspecified (HCC) Orders: ECG 12 lead; Future spironolactone (Aldactone) 50 MG tablet; Take 1 tablet (50 mg) by mouth Daily Primary hypertension Continue to monitor BP at home. Re-order and increase spironolactone to 50 mg daily, this should have a positive impact on his blood pressure. Orders: Hemoglobin A1c; Future Lipid panel; Future Malignant neoplasm of urinary bladder, unspecified site (HCC) Continue to follow with team at [facility] for issues related to bladder cancer. Stage 3b chronic kidney disease ([facility]-H[facility]) Continue to monitor kidney function. Will repeat CMP at next visit. Check A1C as glucose was elevated. Hyperlipidemia, unspecified hyperlipidemia type Multiple thyroid nodules Agent orange exposure Assessment & Plan 1. Hypertension. His blood pressure readings have been inconsistent, with some measurements in the range of 150s/90s and others around 130s. He is currently on Entresto 24/26 mg twice daily for heart failure. He is advised to continue monitoring his blood pressure at home. An EKG has been ordered for further evaluation. A prescription for spironolactone 50 mg has been provided to the [facility] which should effectively decrease his BP. Will follow at next visit with potassium and metabolic panel. 2. Suspected type 2 diabetes mellitus. He has had several elevated blood glucose readings. A hemoglobin A1c test will be conducted today to confirm the diagnosis of type 2 diabetes. If confirmed, appropriate medication and education will be initiated. 3. Hyperlipidemia. He is no longer on Crestor. A lipid panel will be ordered to assess his current cholesterol levels. Depending on the results, a statin or other cholesterol-lowering medication may be initiated. 4. Chronic kidney disease. Continue to monitor kidney function. Will repeat CMP at next visit. Check A1C as glucose was elevated. Follow-up Continue to follow with [facility] for issues related to bladder cancer. Continue to follow with ENT regarding thyroid nodules- last thyroid labs were normal and it appears that he had his thyroid nodules needle biopsied in July 2024 and the pathology was non-diagnostic for cancer. Return to office in 1 month for recheck of blood pressure and review of labs. If A1C is elevated we need to discuss diabetic care. We will also need a repeat check on kidney function, potassium, and an echocardiogram order if one isn't up to date from the past 2 years. documented in this encounter [facility] 12-15-2024 Telephone encounter Note Spoke with patient. All in agreement with plan. Jose Martin Gonzalez APRN.RETREAD SUPERVISOR [facility] Work Phone: 12-15-2024 Miscellaneous Notes Spoke with patient. All in agreement with plan. Jose Martin Gonzalez APRN.RETREAD SUPERVISOR Pt states he was here and saw Jose Martin. He was instructed to call his physician regarding his elevated kidney functions. Pt states he spoke with his general practitioners office and they told him to increase his oral fluids so he's been working on this over the weekend. He wanted our office to be aware. David Capellan RN documented in this encounter [facility] 12-15-2024 Telephone encounter Note Pt states he was here and saw Jose Martin. He was instructed to call his physician regarding his elevated kidney functions. Pt states he spoke with his general practitioners office and they told him to increase his oral fluids so he's been working on this over the weekend. He wanted our office to be aware. David Capellan RN [facility] Work Phone: 12-10-2024 Note HNO ID: [id number] Author: JOSE MARTIN HILLMAN APRN.BILLY Service: ? Author Type: Nurse Practitioner Type: Progress Notes Filed: 12/11/2024 18:24 Note Text: PATIENT NAME: Jolly Sierra DATE: 12/11/2024 PRIMARY CARE PHYSICIAN: Jose J Donaldson Jr, OTHER PHYSICIANS: Dr. Jason Will, Dr. Antonio Gary Portions of this encounter note have been copied from the note from 09/11/2024 and has been updated where appropriate, and reflect my current medical decision making from today. CC: This is a 79 year old male with a history of localized bladder cancer, seen for scheduled follow-up. INTERM HISTORY: History of Diagnosis: Patient has a history of bladder cancer, diagnosed in April 2023. He underwent surgery followed by adjuvant chemotherapy with cisplatin and gemcitabine. Treatment was complicated by worsening kidney function, leading to the discontinuation of cisplatin. Recent History: Patient reports no current issues with kidney pain, hematuria, or difficulty urinating. He continues to use a straight catheter 3-4 times daily to manage chronic urinary retention and reports no problems with the current catheter type provided by the [facility]. Recent CT urogram showed asymmetric thickening of the right lateral and posterior ye of the urinary bladder, likely post-surgical changes, with no evidence of metastatic disease in the abdomen or pelvis. A cystoscopy is scheduled for February. Patient also has a history of thyroid nodules, with recent ultrasound 3 weeks ago showing no significant changes. A repeat ultrasound is recommended in 6 months. Recent labs show mild anemia with hemoglobin slightly below normal, but patient denies symptoms such as fatigue, dizziness, or shortness of breath. Potassium level is slightly elevated at 5.3 mmol/L. No bleeding or abnormal bruising. Worsening kidney function noted on today's labs. The only newer medication the patient is taking is Crestor. MEDICATIONS: Current Outpatient Medications Medication Sig tamsulosin HCl (TAMSULOSIN ORAL) Take by mouth. sacubitril-valsartan (ENTRESTO) 24-26 mg tablet Take 1 tablet by mouth two times a day. spironolactone (ALDACTONE) 50 mg tablet Take 50 mg by mouth once daily. psyllium seed, with sugar, (METAMUCIL, SUGAR, ORAL) Take by mouth. (Patient not taking: Reported on 09/11/2024) ondansetron (ZOFRAN) 8 mg tablet Take 1 tablet by mouth every 8 hours as needed for nausea/vomiting. (Patient not taking: Reported on 09/11/2024) prochlorperazine (COMPAZINE) 10 mg tablet Take 1 tablet by mouth every 6 hours as needed. (Patient not taking: Reported on 09/11/2024) ramipril (ALTACE) 10 mg capsule Take 10 mg by mouth once daily. (Patient not taking: Reported on 09/11/2024) No current facility-administered medications for this visit. ALLERGIES: ALLERGIES No Known Allergies PAST MEDICAL HISTORY: PAST MEDICAL HISTORY Diagnosis Date HLD (hyperlipidemia) HTN (hypertension) Neurogenic bladder PAST SURGICAL HISTORY: PAST SURGICAL HISTORY Procedure Laterality Date CYSTOSCOPY PAST SURGICAL HISTORY OF 2006 bladder surgery PAST SURGICAL HISTORY OF Robotic Laproscopic Cystoplasty bladder augmentation with stent FAMILY HISTORY: FAMILY HISTORY Problem Relation Age of Onset Heart disease Father SOCIAL HISTORY: Social History Tobacco Use Smoking status: Never Passive exposure: Never Smokeless tobacco: Never Vaping Use Vaping status: Never Used Substance Use Topics Alcohol use: Not Currently Drug use: Never PHYSICAL EXAM: BP 161/67 Pulse 64 Temp 36.2 ?C (97.2 ?F) (Temporal) Resp 16 Ht 177.8 cm (5' 10 ) Wt 90.5 kg (199 lb 8.3 oz) SpO2 98% BMI 28.63 kg/m? ECOG 0 General: Alert and oriented, no distress, pleasant and cooperative. Heart: Regular, normal S1 and S2, no murmurs, rubs, or gallops. Lungs: Clear to auscultation bilaterally. Abdomen: Benign. Extremities: Feet/ankles without edema. No redness or warmth PATHOLOGY: 09/06/2023 Robotic bladder diverticulectomy and right pelvic lymph node dissection. A. Urinary bladder, neck of diverticulum, excision: - Benign bladder mucosa and muscularis propria. B. Lymph nodes, right pelvic, regional resection: - Two lymph nodes, negative for malignancy (0/2). C. 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 - Margins are negative for tumor. LABS: Hemoglobin (g/dL) Date Value 12/11/2024 11.9 Hematocrit (%) Date Value 12/11/2024 36.3 WBC (k/uL) Date Value 12/11/2024 6.16 Platelet Count (k/uL) Date Value 12/11/2024 154 RADIOLOGY/OTHER STUDIES: 11/03/2024 CT urogram IMPRESSION: 1. Asymmetric thickening of the right lateral and posterior ye of the urinary bladder again noted, as described. While these most likely represent postsurgical changes, (more content not included)... [facility] 12-01-2024 Telephone encounter Note Patient has an appt on 12/11/24. Would you like labs, if so place orders. Cori Oneill MA [facility] 12-01-2024 Miscellaneous Notes Patient has an appt on 12/11/24. Would you like labs, if so place orders. Cori Oneill MA documented in this encounter [facility] 12-01-2024 History of Present illness Narrative Subjective Patient ID: Jolly Sierra is a 79 y.o. male who presents for Thyroid Nodule (FNA results) HPI This patient presents after needle biopsy of thyroid nodules bilateral Review of Systems States to be doing well. Not having any difficulties with pain, swallow difficulties, voice change. The rest of his review of systems is unchanged Objective ENT Physical Exam General Examination: General overview: Normal, age-appropriate, no evidence of distress Head: Normocephalic, atraumatic Eyes: Pupils are equally round and reactive to light and accommodation, extraocular muscles are intact Ears: External ear architecture within normal limits, ear canals are patent, tympanic membranes are intact. Nose: External nose unremarkable, nares patent, septum intact, no evidence of congestion. Oral cavity: Mucosa moist, no evidence of ulcer, mass, or lesion Throat: Clear Neck/thyroid: Neck supple, full range of motion, no cervical lymphadenopathy, no evidence of thyromegaly. The results of his needle aspiration reveal nondiagnostic findings on the right and benign findings on the left. This is discussed with him in depth. Lymph nodes: No cervical lymphadenopathy Skin: Warm and dry, no evidence of suspicious lesions, no rash Heart: No jugular venous distention, point of maximal impulse normal Lungs: Good air movement, no audible wheezing, no shortness of breath Chest: Normal shape and expansion Abdomen: Normal, soft, nontender, nondistended Musculoskeletal: Cervical spine normal, full range of motion Extremities: No clubbing, cyanosis, or edema Peripheral pulses: 2+ radial, 2+ carotid Neurologic: Alert and oriented, cranial nerves 2-12 are grossly intact Psych: Alert and oriented, normal affect, no evidence of distress Assessment/Plan Diagnoses and all orders for this visit: Nontoxic multinodular goiter Comments: Recommend repeat thyroid ultrasound in 6 months Thyroid nodule documented in this encounter [facility] 11-25-2024 Telephone encounter Note Left voice message stating Dr. Will wanted patient to schedule cystoscopy in February. Scheduled patient with Dr. Obrien on 02/26/25 @ 11:00 am at the [facility] office. Asked patient if he was going to follow up with a urologist in [place] instead and to return call to office [facility] 11-25-2024 Miscellaneous Notes Left voice message stating Dr. Will wanted patient to schedule cystoscopy in February. Scheduled patient with Dr. Obrien on 02/26/25 @ 11:00 am at the [facility] office. Asked patient if he was going to follow up with a urologist in [place] instead and to return call to office documented in this encounter [facility] 11-17-2024 History of Present illness Narrative Subjective Patient ID: Jolly Sierra is a 79 y.o. male who presents for Thyroid Nodule (3 month repeat FNA) HPI This patient presents for repeat FNA of bilateral inferior thyroid dominant nodules. Previous needle aspiration were nondiagnostic. Patient states to be doing well. Review of Systems Patient denies any pain or fever. Denies any difficulties with voice or swallow. 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 Pancreatitis (HHS-HCC) Presbyopia 07/14/2024 Current Outpatient Medications: ondansetron (Zofran) 8 MG tablet, Take 8 mg by mouth every 8 (eight) hours if needed, Disp: , Rfl: prochlorperazine (Compazine) 10 MG tablet, Take 10 mg by mouth every 6 (six) hours if needed, Disp: , Rfl: ramipril (Altace) 10 MG capsule, Take 10 mg by mouth in the morning., Disp: , Rfl: sacubitril-valsartan (Entresto) 24-26 MG tablet, Take by mouth, Disp: , Rfl: spironolactone (Aldactone) 50 MG tablet, Take 50 mg by mouth in the morning., Disp: , Rfl: Past Surgical History: Procedure Laterality Date BLADDER SURGERY HERNIA REPAIR Social History Socioeconomic History Marital status: Unknown Spouse name: Not on file Number of children: Not on file Years of education: Not on file Highest education level: Not on file Occupational History Not on file Tobacco Use Smoking status: Never Smokeless tobacco: Never Substance and Sexual Activity Alcohol use: Not Currently Drug use: Defer Sexual activity: Not on file Other Topics Concern Not on file Social History Narrative Not on file Social Drivers of Health Financial Resource Strain: Not on file Food Insecurity: Not on file Transportation Needs: Not on file Physical Activity: Not on file Stress: Not on file Social Connections: Not on file Intimate Partner Violence: Not on file Housing Stability: Not on file Objective ENT Physical Exam General Examination: General overview: Normal, age-appropriate, no evidence of distress Head: Normocephalic, atraumatic Eyes: Pupils are equally round and reactive to light and accommodation, extraocular muscles are intact Ears: External ear architecture within normal limits, ear canals are patent, tympanic membranes are intact. Nose: External nose unremarkable, nares patent, septum intact, no evidence of congestion. Oral cavity: Mucosa moist, no evidence of ulcer, mass, or lesion Throat: Clear Neck/thyroid: Neck supple, full range of motion, no cervical lymphadenopathy, no evidence of thyromegaly Ultrasound-guided thyroid needle aspiration biopsy Indication: Nodular goiter Consent: Proper consent was obtained Prep: Overlying skin is treated with alcohol Guidance: Ultrasound utilize for proper guidance Aspiration: Thyroid gland/mass is palpated. Nodule(s) to be biopsied have been identified utilizing ultrasound. Each thyroid nodule measuring approximately 13-15 mm in greatest dimension with extension below the clavicles. They are hypoechoic with no evidence of microcalcification or increased vascular flow. The patient is asked not to talk or swallow during the procedure. A fine-needle biopsy needle is inserted into the mass under ultrasound guidance. Aspiration of the nodule is performed and material is placed on slides and cell block. Multiple aspirations are completed without difficulty. Afirma samples also submitted Disposition: The biopsy material was sent for pathology. Pressure is applied to the area biopsy. The patient tolerated the procedure extremely well. Lymph nodes: No cervical lymphadenopathy Skin: Warm and dry, no evidence of suspicious lesions, no rash Heart: No jugular venous distention, point of maximal impulse normal Lungs: Good air movement, no audible wheezing, no shortness of breath Chest: Normal shape and expansion Abdomen: Normal, soft, nontender, nondistended Musculoskeletal: Cervical spine normal, full range of motion Extremities: No clubbing, cyanosis, or edema Peripheral pulses: 2+ radial, 2+ carotid Neurologic: Alert and oriented, cranial nerves 2-12 are grossly intact Psych: Alert and oriented, normal affect, no evidence of distress Assessment/Plan Diagnoses and all orders for this visit: Nontoxic multinodular goiter Comments: Patient will require continue surveillance of his thyroid gland on a yearly basis. Thyroid nodule Comments: We will see this patient back in 2 weeks to review the results of his needle aspiration biopsies. documented in this encounter [facility] 10-28-2024 History of Present illness Narrative Radiology Service Progress Note PATIENT NAME: Jolly Sierra DATE OF SERVICE: October 28, 2024 TIME: 10:37 AM PATIENT IDENTITY VERIFICATION COMPLETED USING TWO (2) IDENTIFIERS: Name and Date of confirmed by patient verbally and Name and Date of confirmed by identification band. FALL SCREENING: Has the patient had 2 falls in the last year or 1 fall with injury or currently using an Ambulatory Assistive Device (Walker, Cane, Wheelchair, Crutches, etc.)? No PATIENT GENDER DATA: Assigned male at PATIENT RELEVANT IMPLANT DATA REVIEWED: Not Applicable PATIENT PRESENTS WITH AN IMPLANTABLE OR ATTACHED METAL FABRICATOR APPRENTICE: No RADIOLOGY DEPARTMENT: CT; Exam(s) Completed: Urogram PERIPHERAL IV DATA: Site assessment: Clean,Dry and Intact, Site disposition Discontinued SIGNED BY: RT Amber(R) October 28, 2024 10:37 AM Radiology Service Progress Note DATE OF SERVICE: October 28, 2024 TIME: 10:27 AM PATIENT WEIGHT: 195LBS PATIENT IDENTITY VERIFICATION COMPLETED USING TWO (2) STANDARD IDENTIFIERS: Name and Date of confirmed by patient verbally and Name and Date of confirmed by identification band. FALL SCREENING: Has the patient had 2 falls in the last year or 1 fall with injury or currently using an Ambulatory Assistive Device (Walker, Cane, Wheelchair, Crutches, etc.)? No PATIENT GENDER DATA: Assigned male at ALLERGIES: Reviewed and unchanged CONTRAST ALLERGY: No EXAM: CT -CONTRAST INDUCED NEPHROPATHY RISK FACTORS: Patient age > 60 years CREATININE: Creatinine Date Value Ref Range Status 09/11/2024 1.29 (H) 0.73 - 1.22 mg/dL Final 06/04/2024 1.56 (H) 0.73 - 1.22 mg/dL Final 03/11/2024 1.38 (H) 0.73 - 1.22 mg/dL Final Estimated Glomerular Filtration Rate Date Value Ref Range Status 09/11/2024 56 (L) >=60 mL/min/1.73m Final Comment: Estimated Glomerular Filtration Rate (eGFR) is calculated using the 2020 CKD-EPI creatinine equation. This equation utilizes serum creatinine, sex, and age as parameters. The creatinine assay has traceable calibration to isotope dilution-mass spectrometry. Refer to KDIGO guidelines for clinical interpretation. In patients with unstable renal function, e.g. those with acute kidney injury, the eGFR may not accurately reflect actual GFR. P.O.C.T. RESULTS: N/A October 28, 2024 TREATMENT: N/A IV SITE: Ambulatory: A peripheral IV was started in the Left antecubital site with a Angio cath: 20 gauge. IV SITE APPEARANCE: Clean,Dry and Intact SIGNATURE: Gladys Salcido RN PATIENT NAME: Jolly Sierra DATE: October 28, 2024 TIME: 10:27 AM documented in this encounter [facility] 10-28-2024 Note HNO ID: [id number] Author: GLADYS SALCIDO RN Service: Nursing Author Type: Registered Nurse Type: Progress Notes Filed: 10/28/2024 10:37 Note Text: Radiology Service Progress Note DATE OF SERVICE: October 28, 2024 TIME: 10:27 AM PATIENT WEIGHT: 195LBS PATIENT IDENTITY VERIFICATION COMPLETED USING TWO (2) STANDARD IDENTIFIERS: Name and Date of confirmed by patient verbally and Name and Date of confirmed by identification band. FALL SCREENING: Has the patient had 2 falls in the last year or 1 fall with injury or currently using an Ambulatory Assistive Device (Walker, Cane, Wheelchair, Crutches, etc.)? No PATIENT GENDER DATA: Assigned male at ALLERGIES: Reviewed and unchanged CONTRAST ALLERGY: No EXAM: CT -CONTRAST INDUCED NEPHROPATHY RISK FACTORS: Patient age > 60 years CREATININE: Creatinine Date Value Ref Range Status 09/11/2024 1.29 (H) 0.73 - 1.22 mg/dL Final 06/04/2024 1.56 (H) 0.73 - 1.22 mg/dL Final 03/11/2024 1.38 (H) 0.73 - 1.22 mg/dL Final Estimated Glomerular Filtration Rate Date Value Ref Range Status 09/11/2024 56 (L) >=60 mL/min/1.73m? Final Comment: Estimated Glomerular Filtration Rate (eGFR) is calculated using the 2020 CKD-EPI creatinine equation. This equation utilizes serum creatinine, sex, and age as parameters. The creatinine assay has traceable calibration to isotope dilution-mass spectrometry. Refer to KDIGO guidelines for clinical interpretation. In patients with unstable renal function, e.g. those with acute kidney injury, the eGFR may not accurately reflect actual GFR. P.O.C.T. RESULTS: N/A October 28, 2024 TREATMENT: N/A IV SITE: Ambulatory: A peripheral IV was started in the Left antecubital site with a Angio cath: 20 gauge. IV SITE APPEARANCE: Clean,Dry and Intact SIGNATURE: Gladys Salcido RN PATIENT NAME: Jolly Sierra DATE: October 28, 2024 TIME: 10:27 AM [facility] 10-28-2024 Note HNO ID: [id number] Author: DIRK VIGIL RT(R) Service: Radiology Author Type: Technologist Type: Progress Notes Filed: 10/28/2024 10:37 Note Text: Radiology Service Progress Note PATIENT NAME: Jolly Sierra DATE OF SERVICE: October 28, 2024 TIME: 10:37 AM PATIENT IDENTITY VERIFICATION COMPLETED USING TWO (2) IDENTIFIERS: Name and Date of confirmed by patient verbally and Name and Date of confirmed by identification band. FALL SCREENING: Has the patient had 2 falls in the last year or 1 fall with injury or currently using an Ambulatory Assistive Device (Walker, Cane, Wheelchair, Crutches, etc.)? No PATIENT GENDER DATA: Assigned male at PATIENT RELEVANT IMPLANT DATA REVIEWED: Not Applicable PATIENT PRESENTS WITH AN IMPLANTABLE OR ATTACHED METAL FABRICATOR APPRENTICE: No RADIOLOGY DEPARTMENT: CT; Exam(s) Completed: Urogram PERIPHERAL IV DATA: Site assessment: Clean,Dry and Intact, Site disposition Discontinued SIGNED BY: Dirk Vigil RT(R) October 28, 2024 10:37 AM [facility] 09-10-2024 Note HNO ID: [id number] Author: FAISAL DASILVA MD Service: ? Author Type: Physician Type: Progress Notes Filed: 09/12/2024 05:50 Note Text: PATIENT NAME: Jolly Sierra DATE: 09/11/2024 PRIMARY CARE PHYSICIAN: Jose J Donaldson Jr, DO OTHER PHYSICIANS: Dr. Jason Will, Dr. Antonio Gary Portions of this encounter note have been copied from the note from 06/12/2024 and has been updated where appropriate, and reflect my current medical decision making from today. CC: This is a 79 year old male with a history of localized bladder cancer, seen for scheduled follow-up. INTERM HISTORY: Since the patient's last visit here he underwent repeat cystoscopy 08/28/2024 which was negative. Clinically feels about the same. As result of his neurogenic bladder he continues to self cath 4 times daily. He was seen by ENT for evaluation of his thyroid nodule. Apparently FNA was nondiagnostic, and current plans are to repeat in the near future. He has noticed no symptoms involving his thyroid. Apparently he is on new medications per PCP for his hypertension and and heart disease. MEDICATIONS: Current Outpatient Medications Medication Sig tamsulosin HCl (TAMSULOSIN ORAL) Take by mouth. sacubitril-valsartan (ENTRESTO) 24-26 mg tablet Take 1 tablet by mouth two times a day. spironolactone (ALDACTONE) 50 mg tablet Take 50 mg by mouth once daily. sulfamethoxazole-trimethoprim (BACTRIM DS) 800-160 mg per tablet Take 1 tablet by mouth two times a day for 10 days. (Patient not taking: Reported on 09/11/2024) cephALEXin (KEFLEX) 500 mg capsule Take 1 capsule by mouth three times a day for 10 days. (Patient not taking: Reported on 09/11/2024) psyllium seed, with sugar, (METAMUCIL, SUGAR, ORAL) Take by mouth. (Patient not taking: Reported on 09/11/2024) ondansetron (ZOFRAN) 8 mg tablet Take 1 tablet by mouth every 8 hours as needed for nausea/vomiting. (Patient not taking: Reported on 09/11/2024) prochlorperazine (COMPAZINE) 10 mg tablet Take 1 tablet by mouth every 6 hours as needed. (Patient not taking: Reported on 09/11/2024) ramipril (ALTACE) 10 mg capsule Take 10 mg by mouth once daily. (Patient not taking: Reported on 09/11/2024) No current facility-administered medications for this visit. ALLERGIES: ALLERGIES No Known Allergies PAST MEDICAL HISTORY: PAST MEDICAL HISTORY Diagnosis Date HLD (hyperlipidemia) HTN (hypertension) Neurogenic bladder PAST SURGICAL HISTORY: PAST SURGICAL HISTORY Procedure Laterality Date CYSTOSCOPY PAST SURGICAL HISTORY OF 2005 bladder surgery PAST SURGICAL HISTORY OF Robotic Laproscopic Cystoplasty bladder augmentation with stent FAMILY HISTORY: FAMILY HISTORY Problem Relation Age of Onset Heart disease Father SOCIAL HISTORY: Social History Tobacco Use Smoking status: Never Passive exposure: Never Smokeless tobacco: Never Vaping Use Vaping status: Never Used Substance Use Topics Alcohol use: Not Currently Drug use: Never COMPLETE REVIEW OF SYSTEMS: CONSTITUTION: Negative for pain, fatigue, weight loss, or appetite loss. EENT: Negative for mouth soreness, antibiotics use, epistaxis, visual problems, neck or facial swelling, fever/chills, bleeding gums, or hearing loss. CV: Negative for calf swelling, palpitations, or chest pain. RESPIRATORY: Negative for cough, SOB, hemoptysis, or wheezing. GI: Negative for vomiting, heartburn, vomiting blood, dysphasia, diarrhea, blood in stool, constipation, early satiety, PICA, vegetarian, poor nutrition, abdominal fullness, or abdominal pain. NEUROLOGICAL: Negative for numbness/tingling, dizziness, gait disturbance, headache, speech disturbance, tremor, hemiparesis/sensory loss, or change in mental status. MUSCULOSKELETAL: Negative for joint pain, joint swelling, or proximal muscle weakness. SKIN: Negative for hair loss, bruising, nail changes, rash, itching, pallor, or jaundice. ENDO/URO: Negative for hot flashes, cold or heat intolerance, urinary frequency, urinary hesitancy, menorrhagia, or hematuria. PSYCH: Negative for anxiety, depression, or other. PHYSICAL EXAM: BP 173/70 Pulse 60 Temp 36.3 ?C (97.4 ?F) (Temporal) Resp 16 Ht 177.8 cm (5' 10 ) Wt 90.3 kg (199 lb 1.2 oz) SpO2 99% BMI 28.56 kg/m? General: Alert and oriented, no distress, pleasant and cooperative. Heart: Regular, normal S1 and S2, no murmurs, rubs, or gallops Lungs: Clear to auscultation bilaterally Abdomen: Benign Extremities: Feet/ankles without edema, right medial antecub with small area of swelling, no redness or warmth PATHOLOGY: 09/06/2023 Robotic bladder diverticulectomy and right pelvic lymph node dissection. A. Urinary bladder, neck of diverticulum, excision: - Benign bladder mucosa and muscularis propria. B. Lymph nodes, right pelvic, regional resection: - Two lymph nodes, negative for malignancy (0/2). C. Urinary bladder, diverticulum, partial cystectomy: (more content not included)... [facility] 09-10-2024 History of Present illness Narrative PATIENT NAME: Jolly Sierra DATE: 09/11/2024 PRIMARY CARE PHYSICIAN: Jose J Donaldson Jr, DO OTHER PHYSICIANS: Dr. Jason Will, Dr. Antonio Gary Portions of this encounter note have been copied from the note from 06/12/2024 and has been updated where appropriate, and reflect my current medical decision making from today. CC: This is a 79 year old male with a history of localized bladder cancer, seen for scheduled follow-up. INTERM HISTORY: Since the patient's last visit here he underwent repeat cystoscopy 08/28/2024 which was negative. Clinically feels about the same. As result of his neurogenic bladder he continues to self cath 4 times daily. He was seen by ENT for evaluation of his thyroid nodule. Apparently FNA was nondiagnostic, and current plans are to repeat in the near future. He has noticed no symptoms involving his thyroid. Apparently he is on new medications per PCP for his hypertension and and heart disease. MEDICATIONS: Current Outpatient Medications Medication Sig tamsulosin HCl (TAMSULOSIN ORAL) Take by mouth. sacubitril-valsartan (ENTRESTO) 24-26 mg tablet Take 1 tablet by mouth two times a day. spironolactone (ALDACTONE) 50 mg tablet Take 50 mg by mouth once daily. sulfamethoxazole-trimethoprim (BACTRIM DS) 800-160 mg per tablet Take 1 tablet by mouth two times a day for 10 days. (Patient not taking: Reported on 09/11/2024) cephALEXin (KEFLEX) 500 mg capsule Take 1 capsule by mouth three times a day for 10 days. (Patient not taking: Reported on 09/11/2024) psyllium seed, with sugar, (METAMUCIL, SUGAR, ORAL) Take by mouth. (Patient not taking: Reported on 09/11/2024) ondansetron (ZOFRAN) 8 mg tablet Take 1 tablet by mouth every 8 hours as needed for nausea/vomiting. (Patient not taking: Reported on 09/11/2024) prochlorperazine (COMPAZINE) 10 mg tablet Take 1 tablet by mouth every 6 hours as needed. (Patient not taking: Reported on 09/11/2024) ramipril (ALTACE) 10 mg capsule Take 10 mg by mouth once daily. (Patient not taking: Reported on 09/11/2024) No current facility-administered medications for this visit. ALLERGIES: ALLERGIES No Known Allergies PAST MEDICAL HISTORY: PAST MEDICAL HISTORY Diagnosis Date HLD (hyperlipidemia) HTN (hypertension) Neurogenic bladder PAST SURGICAL HISTORY: PAST SURGICAL HISTORY Procedure Laterality Date CYSTOSCOPY PAST SURGICAL HISTORY OF 2006 bladder surgery PAST SURGICAL HISTORY OF Robotic Laproscopic Cystoplasty bladder augmentation with stent FAMILY HISTORY: FAMILY HISTORY Problem Relation Age of Onset Heart disease Father SOCIAL HISTORY: Social History Tobacco Use Smoking status: Never Passive exposure: Never Smokeless tobacco: Never Vaping Use Vaping status: Never Used Substance Use Topics Alcohol use: Not Currently Drug use: Never COMPLETE REVIEW OF SYSTEMS: CONSTITUTION: Negative for pain, fatigue, weight loss, or appetite loss. EENT: Negative for mouth soreness, antibiotics use, epistaxis, visual problems, neck or facial swelling, fever/chills, bleeding gums, or hearing loss. CV: Negative for calf swelling, palpitations, or chest pain. RESPIRATORY: Negative for cough, SOB, hemoptysis, or wheezing. GI: Negative for vomiting, heartburn, vomiting blood, dysphasia, diarrhea, blood in stool, constipation, early satiety, PICA, vegetarian, poor nutrition, abdominal fullness, or abdominal pain. NEUROLOGICAL: Negative for numbness/tingling, dizziness, gait disturbance, headache, speech disturbance, tremor, hemiparesis/sensory loss, or change in mental status. MUSCULOSKELETAL: Negative for joint pain, joint swelling, or proximal muscle weakness. SKIN: Negative for hair loss, bruising, nail changes, rash, itching, pallor, or jaundice. ENDO/URO: Negative for hot flashes, cold or heat intolerance, urinary frequency, urinary hesitancy, menorrhagia, or hematuria. PSYCH: Negative for anxiety, depression, or other. PHYSICAL EXAM: BP 173/70 Pulse 60 Temp 36.3 C (97.4 F) (Temporal) Resp 16 Ht 177.8 cm (5' 10 ) Wt 90.3 kg (199 lb 1.2 oz) SpO2 99% BMI 28.56 kg/m General: Alert and oriented, no distress, pleasant and cooperative. Heart: Regular, normal S1 and S2, no murmurs, rubs, or gallops Lungs: Clear to auscultation bilaterally Abdomen: Benign Extremities: Feet/ankles without edema, right medial antecub with small area of swelling, no redness or warmth PATHOLOGY: 09/06/2023 Robotic bladder diverticulectomy and right pelvic lymph node dissection. A. Urinary bladder, neck of diverticulum, excision: - Benign bladder mucosa and muscularis propria. B. Lymph nodes, right pelvic, regional resection: - Two lymph nodes, negative for malignancy (0/2). C. 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 - Margins are negative for tumor. LABS: Hemoglobin (g/dL) Date Value 09/11/2024 12.3 Hematocrit (%) Date Value 09/11/2024 37.8 WBC (k/uL) Date Value 09/11/2024 5.90 Platelet Count (k/uL) Date Value 09/11/2024 155 RADIOLOGY/OTHER STUDIES: 08/28/2024 Cystoscopy No visible abnormalities detected. Cytology negative. Repeat at 6 months. 06/18/2024 US Thyroid ([place]) Suspicious TR 4 nodule within the right lobe and suspicious TR 5 nodule within the left lobe. Ultrasound-guided tissue sampling recommended. 06/04/2024 CT chest IMPRESSION: Unchanged 8 mm left lower lobe nodule not clearly PET avid. Additional subcentimeter pulmonary nodules. Continued follow-up is recommended. No thoracic lymphadenopathy. 06/04/2024 CT abdomen/pelvis IMPRESSION: Right lateral bladder wall thickening with mural hyperenhancement. Subtle soft tissue thickening and enhancement involving the distal right ureter. Recommend correlation with cystoscopy and retrograde studies to assess for neoplasm involving the right ureter. No metastatic disease in the abdomen or pelvis. 02/18/2024 Cystoscopy Several areas of erythema unclear if inflammatory versus malignant. Anterior bladder wall, left lateral wall, posterior bladder wall and right lateral wall. All areas between 1 to 3 cm in size. Biopsies taken in 4 areas as described above. Remaining erythema was fulgurated. Pathology on biopsy specimen benign. Bladder mucosa with mixed acute and chronic inflammation and reactive changes. 10/16/2023 PET scan IMPRESSION: HEAD/NECK: * No FDG avid neoplastic process. * Diffusely enlarged thyroid demonstrating heterogeneous FDG avidity with multiple large thyroid nodules measuring up to 2.9 cm. Correlate with serology and/or thyroid ultrasound for TI-RADS ultrasound criteria evaluation and decision support regarding observation versus tissue sampling. CHEST: * No FDG avid neoplastic process. ABDOMEN/PELVIS: * Prior RIGHT urinary bladder diverticulectomy with residual bladder wall thickening in the operative bed and extending along the urinary bladder fundus. Degree of FDG avidity is poorly assessed due to adjacent urinary bladder luminal FDG avidity. Continued attention on follow-up is recommended * No hypermetabolic abdominopelvic lymphadenopathy. * Nonspecific bilateral adrenal gland uptake, possibly physiologic or secondary to hyperplasia. Attention on follow-up. * Mild, diffuse radiotracer uptake within the prostate without discrete focal lesion. Correlate with PSA. * Ill-defined minimally FDG avid soft tissue attenuation in the LEFT inguinal region likely representing postoperative material given reported history of prior incarcerated LEFT inguinal hernia repair. Continued attention on follow-up. MUSCULOSKELETAL: * No FDG avid neoplastic process. 09/03/2023 CT urogram IMPRESSION: 1. Large diverticulum arising from the right posterior wall of the urinary bladder. There is asymmetric wall thickening and increased enhancement along the posterior and superior aspect of the bladder diverticulum. This is highly suspicious for urothelial carcinoma and can be correlated with cystoscopy if not already performed. No metastatic disease detected in the abdomen or pelvis. No upper tract urothelial filling defects detected. ASSESSMENT/PLAN: 1. 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 The patient presented April 2023 with gross hematuria. Initial cystoscopy 08/01/2023 revealed a large diverticulum on the right bladder floor. CT urogram 09/03/2023 confirmed a large diverticulum arising from the right posterior wall of the urinary bladder. On 09/06/2023 he underwent robotic bladder diverticulectomy plus right pelvic lymph node dissection. Pathology revealed high-grade urothelial carcinoma, greatest dimension 5 cm, with invasion of the perivesical fat (T3b). 2 resected lymph nodes negative for metastasis. PET scan 10/16/2023 revealed no evidence of metastases. Postop recommendations were to proceed with adjuvant chemotherapy consisting of cisplatin plus gemcitabine 2 weeks on 1 week off x 4 cycles. Treatment started 11/05/2023. Due to adverse effects (malaise) and renal dysfunction cisplatin held with cycle 3-day 8. Completed cycle 4 day 8 on 01/15/2024. Repeat cystoscopy 02/18/2024 revealed erythematous mucosa, biopsy benign. Restaging CT scans 06/04/2024 revealed right lateral bladder wall thickening, otherwise unremarkable. Most recent cystoscopy 08/28/2024 negative. Currently no evidence of disease. At this time we will continue close observation. The patient is scheduled to undergo CT urogram October 2024. Will see the patient back in 3 months for follow-up. 2. Neurogenic bladder - ICD9: 596.54, ICD10: N31.9 Acute bladder dysfunction since 2005, at which time diagnosed with neurogenic bladder. Currently the patient does self-catheterization 4 times a day. 3. Hyperlipidemia - ICD9: 272.4, ICD10: E78.5 Stable on current medications, continue per PCP. 4. Primary hypertension - ICD9: 401.9, ICD10: I10 Stable on current medications, continue per PCP. 5. Abnormal thyroid imaging Baseline PET scan 10/16/2023 revealed diffusely enlarged thyroid demonstrating heterogeneous FDG avidity with multiple large thyroid nodules measuring up to 2.9 cm. Thyroid ultrasound 06/18/2024 revealed at least 2 suspicious thyroid nodules. The patient has been referred to ENT (Dr. Borja) for further evaluation. Initial FNA nondiagnostic. Plans are to repeat. Faisal Dasilva MD CC: Jose J Donaldson Jr, documented in this encounter [facility] 09-02-2024 Telephone encounter Note Patient is aware to start keflex for UTI per order of Dr Wlil. [facility] 09-02-2024 Miscellaneous Notes Patient is aware to start keflex for UTI per order of Dr Will. documented in this encounter [facility] 08-28-2024 Note HNO ID: [id number] Author: JASON WILL MD Service: ? Author Type: Physician Type: Progress Notes Filed: 08/28/2024 14:02 Note Text: CC: Bladder cancer The patient is a 79-year-old male with a history of a tumor in the diverticulum, presenting for a bladder scope. 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 Presenting for surveillance cystoscopy. The patient was on chemotherapy with cisplatin plus gemcitabine 2 weeks on [address] Dasilva started 11/05/2023. The patient is under the care of a medical oncologist, Dr. 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 He reports using a catheter for bladder management and notes that his urine is usually a light yellow color, but the last portion of urine is cloudy and resembles ground up aspirin. He denies any malodor associated with the urine and maintains good hygiene by washing his hands thoroughly and using a wipe for his genital area before catheterization. He denies any other urinary issues. The patient mentions that he is not currently scheduled for any scans with Dr. Dasilva and is done with them for the time being. He also reports that a couple of small spots were noticed on his thyroid, and samples were taken, but the results were inconclusive. He is scheduled to follow up in 3 months for further evaluation. CT Abd/Chest 06/04/2024- Right lateral bladder wall thickening with mural hyperenhancement. Subtle soft tissue thickening and enhancement involving the distal right ureter. CT Chest 06/04/2024- Unchanged 8 mm left lower lobe nodule not clearly PET avid. Additional subcentimeter pulmonary nodules. Bladder biopsy 02/18/2024- Bladder mucosa with mixed acute and chronic inflammation and reactive changes. Cysto 01/04/2024- Some erythema possible inflammation. PET Scan 10/16/2023- No evidence of metastases, Prior RIGHT urinary bladder diverticulectomy with residual bladder wall thickening in the operative bed and extending along the urinary bladder fundus. Surgical Pathology 02/18/2024 FINAL DIAGNOSIS A. Urinary bladder,biopsy: - Bladder mucosa with mixed acute and chronic inflammation and reactive changes. - No muscularis propria identified. Surgical Pathology 09/06/2023 FINAL DIAGNOSIS A. Urinary bladder, neck of diverticulum, excision: - Benign bladder mucosa and muscularis propria. B. Lymph nodes, right pelvic, regional resection: - Two lymph nodes, negative for malignancy (0/2). C. 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 - Margins are negative for tumor. CT Chest 06/04/2024 IMPRESSION: Unchanged 8 mm left lower lobe nodule not clearly PET avid. Additional subcentimeter pulmonary nodules. Continued follow-up is recommended. No thoracic lymphadenopathy. CT Abd/Pel 06/04/2024 IMPRESSION: Right lateral bladder wall thickening with mural hyperenhancement. Subtle soft tissue thickening and enhancement involving the distal right ureter. Recommend correlation with cystoscopy and retrograde studies to assess for neoplasm involving the right ureter. No metastatic disease in the abdomen or pelvis. [employer] HOPS NOTE/ UNIVERSAL PROTOCOL/ SAFETY CHECKLIST Sign In History and Physical Exam reviewed and is unchanged. Primary Diagnosis: History of bladder cancer Sign in Communication: Completed. Time Out: Immediately prior to procedure, Team confirms the correct patient, correct procedure, cystoscopy, correct site and site marking, correct position (if applicable). Sign Out: Sign out discussion: Completed. Antibiotic(s) given immediately prior to procedure: Bactrim Details of procedure: as below Participation of a fellow, resident, medical student, or advanced practice provider student in performing the sensitive examination was discussed with the patient or authorized manufacturer's representative. The patient or authorized manufacturer's representative has agreed to proceed with the sensitive examination. Cystoscopy -see below Urethra - Normal Prostate: Mild lateral lobes VN: open Urothelium: Cloudy urine which made the cystoscopy limited. We did evacuate as much of the urine as we could and filled it with saline but still had some trouble seeing. No obvious papillary tumor seen. There was some diffuse erythema. Trabeculation: Moderate Inflammation: mild Ureteral Orifices: Normal, clear efflux bilaterally Trigone: Normal Preoperative diagnosis: History of bladder cancer Postoperative diagnosis: Same Procedure: Flexible cystoscopy Surgeon: Dr. Jason Will Anesthesia: Lidocaine urojet Procedure: The moraima (more content not included)... [facility] 08-28-2024 Note HNO ID: [id number] Author: JESUS ALBERTO BAIRD MA Service: ? Author Type: Clinical Laboratory Technologist Type: Progress Notes Filed: 08/28/2024 14:02 Note Text: UNIVERSAL PROTOCOL / SAFETY CHECKLIST Procedure to be Performed: cystoscopy Sign In: A Moment of CARE was completed. Appropriate PPE (Personal Protective Equipment) worn by all providers involved with the procedure. Special equipment utilized AMbu Cystoscope. Patient/Surrogate Stated/Verified: Patient name, Date of , Relevant allergies, and The intended procedure Time Out: Relevant labs, photos, and/or imaging studies have been reviewed. Intended patient and procedure match the source document(s) (e.g. consent, HANDP, associated studies [imaging, pathology]) match the intended patient and procedure. Consent obtained and matches the intended procedure. Yes. Correct side/site is not applicable. Medications required for this procedure are verified. Fire risk assessed and interventions discussed. Implants: are not applicable. Sign Out: Specimens not collected. All instruments, equipment, possible retained foreign bodies are accounted for. Yes. The post-procedure plan of care has been communicated to patient's multidisciplinary team (including bedside nurse for hospitalized patients). PROCEDURE PREP-Cysto Patient ID with two(2)identifiers verified by: Jesus Alberto Baird MA Heart valve replacement: No Joint replacement: No Pre-Procedure Antibiotics: Bactrim DS 160mg-800mg orally, given during visit @ 1303 , by Jesus Alberto Baird MA Patient Prep: Betadine Scrub to perineum and placement of Sterile Drape. COMPLETED Anesthetic Given:10 cc 2% Lidocaine jelly and Administered by MD - see Procedure Physician Note. Jesus Alberto Baird MA UNIVERSAL PROTOCOL / SAFETY CHECKLIST Procedure to be performed: Cystoscopy Sign in Communication: Completed Time Out: Team Confirms the Correct Patient, Correct Procedure, Correct Site and Site Marking, Correct Position (if applicable). Sign Out Discussion: Completed Jesus Alberto Baird MA POST PROCEDURE NURSE ASSESSMENT Present along with physician during procedure exam. Jesus Alberto Baird MA Procedure/Indication: Cystoscopy Instruction sheet given and reviewed and patient verbalizes understanding: yes Post-Procedure Vital Signs: BP: 148/71 Pulse: 81 Post Procedure Antibiotic: none Current pain intensity is 0 on a 0-10 pain scale. Jesus Alberto Baird MA AMBULATORY PATIENT EDUCATION THE FOLLOWING WAS EVALUATED Motivation To Learn: Interested Family/Significant Other Support: Unable to assess - Family not present Cognitive Ability: Alert/Oriented Method of Instruction: Individual instruction Written instruction/Handouts Verbal instruction The Following Influencing Factors Were Barriers To This Education Session: None The Following Physical Limitations Were Barriers To This Education Session: None Instruction Provided To: Patient Circulation Man Present: not applicable Discipline: Nursing Learning Topic: SURVIVAL SKILLS: Complication Prevention Symptom Management Patient Evaluation: Verbalizes understanding: Yes Supplemental Material Given: Written Material Instructed By Jesus Alberto Baird MA In Department Urology . [facility] 08-18-2024 History of Present illness Narrative Subjective Patient ID: Jolly Sierra is a 79 y.o. male who presents for Thyroid Nodule (FNA results) HPI This patient presents for recheck of bilateral thyroid nodules. Review of Systems Patient recently underwent bilateral needle aspiration biopsy of dominant nodules on both sides of his thyroid gland. The rest of his review of systems is unchanged Objective ENT Physical Exam General Examination: General overview: Normal, age-appropriate, no evidence of distress Head: Normocephalic, atraumatic Eyes: Pupils are equally round and reactive to light and accommodation, extraocular muscles are intact Ears: External ear architecture within normal limits, ear canals are patent, tympanic membranes are intact. Nose: External nose unremarkable, nares patent, septum intact, no evidence of congestion. Oral cavity: Mucosa moist, no evidence of ulcer, mass, or lesion Throat: Clear Neck/thyroid: Neck supple, full range of motion, no cervical lymphadenopathy, no evidence of thyromegaly. The results of his needle aspiration biopsies are nondiagnostic. Lymph nodes: No cervical lymphadenopathy Skin: Warm and dry, no evidence of suspicious lesions, no rash Heart: No jugular venous distention, point of maximal impulse normal Lungs: Good air movement, no audible wheezing, no shortness of breath Chest: Normal shape and expansion Abdomen: Normal, soft, nontender, nondistended Musculoskeletal: Cervical spine normal, full range of motion Extremities: No clubbing, cyanosis, or edema Peripheral pulses: 2+ radial, 2+ carotid Neurologic: Alert and oriented, cranial nerves 2-12 are grossly intact Psych: Alert and oriented, normal affect, no evidence of distress Assessment/Plan Diagnoses and all orders for this visit: Nontoxic multinodular goiter (CMS/HCC) Thyroid nodule (CMS/HCC) Comments: Recommend repeat bilateral needle aspiration biopsy in 3 months documented in this encounter [facility] 08-13-2024 Telephone encounter Note Called patient and left voicemail informing them of rescheduled appointment with Dr. Will. [facility] 08-13-2024 Miscellaneous Notes Called patient and left voicemail informing them of rescheduled appointment with Dr. Will. documented in this encounter [facility] 08-04-2024 History of Present illness Narrative Subjective Patient ID: Jolly Sierra is a 79 y.o. male who presents for Thyroid Nodule (FNA) HPI This patient presents for needle aspiration biopsy of bilateral thyroid nodules Review of Systems Patient has bilateral thyroid nodules noted on outpatient ultrasound as well as CT scan/ MRI evaluations. The rest of his review of systems is unchanged Objective ENT Physical Exam General Examination: General overview: Normal, age-appropriate, no evidence of distress Head: Normocephalic, atraumatic Eyes: Pupils are equally round and reactive to light and accommodation, extraocular muscles are intact Ears: External ear architecture within normal limits, ear canals are patent, tympanic membranes are intact. Nose: External nose unremarkable, nares patent, septum intact, no evidence of congestion. Oral cavity: Mucosa moist, no evidence of ulcer, mass, or lesion Throat: Clear Neck/thyroid: Neck supple, full range of motion, no cervical lymphadenopathy, Ultrasound-guided thyroid needle aspiration biopsy Indication: Nodular goiter Consent: Proper consent was obtained Prep: Overlying skin is treated with alcohol Guidance: Ultrasound utilize for proper guidance Aspiration: Thyroid gland/mass is palpated. Nodule(s) to be biopsied have been identified utilizing ultrasound. The patient is asked not to talk or swallow during the procedure. A fine-needle biopsy needle is inserted into the mass under ultrasound guidance. Aspiration of the nodule is performed and material is placed on slides and cell block. Multiple aspirations are completed without difficulty. Both sides of the thyroid are biopsied Disposition: The biopsy material was sent for pathology. ThyroSeq specimens also submitted Pressure is applied to the area biopsy. The patient tolerated the procedure extremely well. Lymph nodes: No cervical lymphadenopathy Skin: Warm and dry, no evidence of suspicious lesions, no rash Heart: No jugular venous distention, point of maximal impulse normal Lungs: Good air movement, no audible wheezing, no shortness of breath Chest: Normal shape and expansion Abdomen: Normal, soft, nontender, nondistended Musculoskeletal: Cervical spine normal, full range of motion Extremities: No clubbing, cyanosis, or edema Peripheral pulses: 2+ radial, 2+ carotid Neurologic: Alert and oriented, cranial nerves 2-12 are grossly intact Psych: Alert and oriented, normal affect, no evidence of distress Assessment/Plan Diagnoses and all orders for this visit: Nontoxic multinodular goiter (CMS/HCC) Thyroid nodule (CMS/HCC) Comments: await the results of his needle aspiration biopsies Thyroid dysfunction (CMS/HCC) Comments: most recent thyroid functions are normal documented in this encounter [facility] 07-07-2024 Telephone encounter Note Spoke to [facility] patient is scheduled on 07/14 at 1030. [facility] 07-07-2024 Miscellaneous Notes Spoke to [facility] patient is scheduled on 07/14 at 1030. Spoke to ENT office, not scheduled yet Patient still not scheduled. They will call him. Spoke to [place] at ENT, she claims they just got referral and will call patient. She states it will take a minute. She sounded bothered by my call. Order received, office to call patient to schedule Records faxed to [facility]. I faxed over the referral to [facility] [phone] fax number Saira Jb - could you please send records Clerical: Please refer pt to Dr Newman for thyroid biopsy. Thanks! Donald Perez RN Thyroid US done 06/18/24. Results recommend US-guided biopsy. Dr Dasilva would like pt to see ENT either through [facility] or locally (Dr Newman). Pt notified and agrees to local referral. BRM/RAJWINDER: Referral for ENT pended. Donald Perez RN documented in this encounter [facility] 07-01-2024 Telephone encounter Note Spoke to ENT office, not scheduled yet [facility] 06-27-2024 Telephone encounter Note Patient still not scheduled. They will call him. [facility] 06-24-2024 Telephone encounter Note Spoke to [place] at ENT, she claims they just got referral and will call patient. She states it will take a minute. She sounded bothered by my call. [facility] 06-23-2024 Telephone encounter Note Order received, office to call patient to schedule [facility] 06-20-2024 Telephone encounter Note Records faxed to [facility]. [facility] 06-20-2024 Telephone encounter Note I faxed over the referral to [facility] [phone] fax number [facility] 06-20-2024 Telephone encounter Note Saira W - could you please send records [facility] 06-20-2024 Telephone encounter Note Clerical: Please refer pt to Dr Newman for thyroid biopsy. Thanks! Donald Perez, RN [facility] 06-19-2024 Telephone encounter Note Thyroid US done 06/18/24. Results recommend US-guided biopsy. Dr Dasilva would like pt to see ENT either through [facility] or locally (Dr Newman). Pt notified and agrees to local referral. BRM/RAJWINDER: Referral for ENT pended. Donald Perez RN [facility] 06-11-2024 Note HNO ID: [id number] Author: FAISAL DASILVA MD Service: ? Author Type: Physician Type: Progress Notes Filed: 06/13/2024 07:11 Note Text: PATIENT NAME: Jolly Sierra DATE: 06/12/2024 PRIMARY CARE PHYSICIAN: Jose J Donaldson Jr, DO OTHER PHYSICIANS: Dr. Jason Will, Dr. Antonio Gary Portions of this encounter note have been copied from the note from 03/11/2024 and has been updated where appropriate, and reflect my current medical decision making from today. CC: This is a 79 year old male with a history of localized bladder cancer, seen for scheduled follow-up. INTERM HISTORY: Since the patient's last visit here he has had no significant medical changes. As result of his neurogenic bladder he continues to self cath 4 times daily. He notices that the final few drops of urine appear cloudy, but no hematuria or other signs of infection. Overall he feels well with no particular complaints today. MEDICATIONS: Current Outpatient Medications Medication Sig spironolactone (ALDACTONE) 50 mg tablet Take 50 mg by mouth once daily. psyllium seed, with sugar, (METAMUCIL, SUGAR, ORAL) Take by mouth. ondansetron (ZOFRAN) 8 mg tablet Take 1 tablet by mouth every 8 hours as needed for nausea/vomiting. prochlorperazine (COMPAZINE) 10 mg tablet Take 1 tablet by mouth every 6 hours as needed. ramipril (ALTACE) 10 mg capsule Take 10 mg by mouth once daily. No current facility-administered medications for this visit. ALLERGIES: ALLERGIES No Known Allergies PAST MEDICAL HISTORY: PAST MEDICAL HISTORY Diagnosis Date HLD (hyperlipidemia) HTN (hypertension) Neurogenic bladder PAST SURGICAL HISTORY: PAST SURGICAL HISTORY Procedure Laterality Date CYSTOSCOPY PAST SURGICAL HISTORY OF 2006 bladder surgery PAST SURGICAL HISTORY OF Robotic Laproscopic Cystoplasty bladder augmentation with stent FAMILY HISTORY: FAMILY HISTORY Problem Relation Age of Onset Heart disease Father SOCIAL HISTORY: Social History Tobacco Use Smoking status: Never Passive exposure: Never Smokeless tobacco: Never Vaping Use Vaping status: Never Used Substance Use Topics Alcohol use: Not Currently Drug use: Never COMPLETE REVIEW OF SYSTEMS: CONSTITUTION: Negative for pain, fatigue, weight loss, or appetite loss. EENT: Negative for mouth soreness, antibiotics use, epistaxis, visual problems, neck or facial swelling, fever/chills, bleeding gums, or hearing loss. CV: +mild L ankle edema. Negative for calf swelling, palpitations, or chest pain. RESPIRATORY: Negative for cough, SOB, hemoptysis, or wheezing. GI: +mild nausea. Negative for vomiting, heartburn, vomiting blood, dysphasia, diarrhea, blood in stool, constipation, early satiety, PICA, vegetarian, poor nutrition, abdominal fullness, or abdominal pain. NEUROLOGICAL: Negative for numbness/tingling, dizziness, gait disturbance, headache, speech disturbance, tremor, hemiparesis/sensory loss, or change in mental status. MUSCULOSKELETAL: Negative for joint pain, joint swelling, or proximal muscle weakness. SKIN: Negative for hair loss, bruising, nail changes, rash, itching, pallor, or jaundice. ENDO/URO: Negative for hot flashes, cold or heat intolerance, urinary frequency, urinary hesitancy, menorrhagia, or hematuria. PSYCH: Negative for anxiety, depression, or other. PHYSICAL EXAM: BP 123/71 Pulse 70 Temp 36.2 ?C (97.2 ?F) (Temporal) Resp 16 Ht 177.8 cm (5' 10 ) Wt 85.2 kg (187 lb 13.3 oz) SpO2 97% BMI 26.95 kg/m? General: Alert and oriented, no distress, pleasant and cooperative. Heart: Regular, normal S1 and S2, no murmurs, rubs, or gallops Lungs: Clear to auscultation bilaterally Abdomen: Benign Extremities: Feet/ankles without edema, right medial antecub with small area of swelling, no redness or warmth PATHOLOGY: 02/18/2024 Cystoscopy bladder mucosa with mixed acute and chronic inflammation and reactive changes. No muscularis propria identified 09/06/2023 Robotic bladder diverticulectomy and right pelvic lymph node dissection. A. Urinary bladder, neck of diverticulum, excision: - Benign bladder mucosa and muscularis propria. B. Lymph nodes, right pelvic, regional resection: - Two lymph nodes, negative for malignancy (0/2). C. 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 - Margins are negative for tumor. LABS: Hemoglobin (g/dL) Date Value 06/04/2024 11.5 Hematocrit (%) Date Value 06/04/2024 35.0 WBC (k/uL) Date Value 06/04/2024 6.08 Platelet Count (k/uL) Date Value 06/04/2024 168 RADIOLOGY/OTHER STUDIES: 06/04/2024 CT chest IMPRESSION: Unchanged 8 mm left lower lobe nodule not clearly PET avid. Additional subcentimeter pulmonary nodules. Continued follow-up is recommended. No thoracic lymphadenopathy. 1 (more content not included)... [facility] 06-11-2024 History of Present illness Narrative PATIENT NAME: Jolly Sierra DATE: 06/12/2024 PRIMARY CARE PHYSICIAN: Jose J Donaldson Jr, OTHER PHYSICIANS: Dr. Jason Will, Dr. Antonio Gary Portions of this encounter note have been copied from the note from 03/11/2024 and has been updated where appropriate, and reflect my current medical decision making from today. CC: This is a 79 year old male with a history of localized bladder cancer, seen for scheduled follow-up. INTERM HISTORY: Since the patient's last visit here he has had no significant medical changes. As result of his neurogenic bladder he continues to self cath 4 times daily. He notices that the final few drops of urine appear cloudy, but no hematuria or other signs of infection. Overall he feels well with no particular complaints today. MEDICATIONS: Current Outpatient Medications Medication Sig spironolactone (ALDACTONE) 50 mg tablet Take 50 mg by mouth once daily. psyllium seed, with sugar, (METAMUCIL, SUGAR, ORAL) Take by mouth. ondansetron (ZOFRAN) 8 mg tablet Take 1 tablet by mouth every 8 hours as needed for nausea/vomiting. prochlorperazine (COMPAZINE) 10 mg tablet Take 1 tablet by mouth every 6 hours as needed. ramipril (ALTACE) 10 mg capsule Take 10 mg by mouth once daily. No current facility-administered medications for this visit. ALLERGIES: ALLERGIES No Known Allergies PAST MEDICAL HISTORY: PAST MEDICAL HISTORY Diagnosis Date HLD (hyperlipidemia) HTN (hypertension) Neurogenic bladder PAST SURGICAL HISTORY: PAST SURGICAL HISTORY Procedure Laterality Date CYSTOSCOPY PAST SURGICAL HISTORY OF 2006 bladder surgery PAST SURGICAL HISTORY OF Robotic Laproscopic Cystoplasty bladder augmentation with stent FAMILY HISTORY: FAMILY HISTORY Problem Relation Age of Onset Heart disease Father SOCIAL HISTORY: Social History Tobacco Use Smoking status: Never Passive exposure: Never Smokeless tobacco: Never Vaping Use Vaping status: Never Used Substance Use Topics Alcohol use: Not Currently Drug use: Never COMPLETE REVIEW OF SYSTEMS: CONSTITUTION: Negative for pain, fatigue, weight loss, or appetite loss. EENT: Negative for mouth soreness, antibiotics use, epistaxis, visual problems, neck or facial swelling, fever/chills, bleeding gums, or hearing loss. CV: +mild L ankle edema. Negative for calf swelling, palpitations, or chest pain. RESPIRATORY: Negative for cough, SOB, hemoptysis, or wheezing. GI: +mild nausea. Negative for vomiting, heartburn, vomiting blood, dysphasia, diarrhea, blood in stool, constipation, early satiety, PICA, vegetarian, poor nutrition, abdominal fullness, or abdominal pain. NEUROLOGICAL: Negative for numbness/tingling, dizziness, gait disturbance, headache, speech disturbance, tremor, hemiparesis/sensory loss, or change in mental status. MUSCULOSKELETAL: Negative for joint pain, joint swelling, or proximal muscle weakness. SKIN: Negative for hair loss, bruising, nail changes, rash, itching, pallor, or jaundice. ENDO/URO: Negative for hot flashes, cold or heat intolerance, urinary frequency, urinary hesitancy, menorrhagia, or hematuria. PSYCH: Negative for anxiety, depression, or other. PHYSICAL EXAM: BP 123/71 Pulse 70 Temp 36.2 C (97.2 F) (Temporal) Resp 16 Ht 177.8 cm (5' 10 ) Wt 85.2 kg (187 lb 13.3 oz) SpO2 97% BMI 26.95 kg/m General: Alert and oriented, no distress, pleasant and cooperative. Heart: Regular, normal S1 and S2, no murmurs, rubs, or gallops Lungs: Clear to auscultation bilaterally Abdomen: Benign Extremities: Feet/ankles without edema, right medial antecub with small area of swelling, no redness or warmth PATHOLOGY: 02/18/2024 Cystoscopy bladder mucosa with mixed acute and chronic inflammation and reactive changes. No muscularis propria identified 09/06/2023 Robotic bladder diverticulectomy and right pelvic lymph node dissection. A. Urinary bladder, neck of diverticulum, excision: - Benign bladder mucosa and muscularis propria. B. Lymph nodes, right pelvic, regional resection: - Two lymph nodes, negative for malignancy (0/2). C. 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 - Margins are negative for tumor. LABS: Hemoglobin (g/dL) Date Value 06/04/2024 11.5 Hematocrit (%) Date Value 06/04/2024 35.0 WBC (k/uL) Date Value 06/04/2024 6.08 Platelet Count (k/uL) Date Value 06/04/2024 168 RADIOLOGY/OTHER STUDIES: 06/04/2024 CT chest IMPRESSION: Unchanged 8 mm left lower lobe nodule not clearly PET avid. Additional subcentimeter pulmonary nodules. Continued follow-up is recommended. No thoracic lymphadenopathy. 06/04/2024 CT abdomen/pelvis IMPRESSION: Right lateral bladder wall thickening with mural hyperenhancement. Subtle soft tissue thickening and enhancement involving the distal right ureter. Recommend correlation with cystoscopy and retrograde studies to assess for neoplasm involving the right ureter. No metastatic disease in the abdomen or pelvis. 02/18/2024 Cystoscopy Several areas of erythema unclear if inflammatory versus malignant. Anterior bladder wall, left lateral wall, posterior bladder wall and right lateral wall. All areas between 1 to 3 cm in size. Biopsies taken in 4 areas as described above. Remaining erythema was fulgurated. Pathology on biopsy specimen benign. Bladder mucosa with mixed acute and chronic inflammation and reactive changes. 10/16/2023 PET scan IMPRESSION: HEAD/NECK: * No FDG avid neoplastic process. * Diffusely enlarged thyroid demonstrating heterogeneous FDG avidity with multiple large thyroid nodules measuring up to 2.9 cm. Correlate with serology and/or thyroid ultrasound for TI-RADS ultrasound criteria evaluation and decision support regarding observation versus tissue sampling. CHEST: * No FDG avid neoplastic process. ABDOMEN/PELVIS: * Prior RIGHT urinary bladder diverticulectomy with residual bladder wall thickening in the operative bed and extending along the urinary bladder fundus. Degree of FDG avidity is poorly assessed due to adjacent urinary bladder luminal FDG avidity. Continued attention on follow-up is recommended * No hypermetabolic abdominopelvic lymphadenopathy. * Nonspecific bilateral adrenal gland uptake, possibly physiologic or secondary to hyperplasia. Attention on follow-up. * Mild, diffuse radiotracer uptake within the prostate without discrete focal lesion. Correlate with PSA. * Ill-defined minimally FDG avid soft tissue attenuation in the LEFT inguinal region likely representing postoperative material given reported history of prior incarcerated LEFT inguinal hernia repair. Continued attention on follow-up. MUSCULOSKELETAL: * No FDG avid neoplastic process. 09/03/2023 CT urogram IMPRESSION: 1. Large diverticulum arising from the right posterior wall of the urinary bladder. There is asymmetric wall thickening and increased enhancement along the posterior and superior aspect of the bladder diverticulum. This is highly suspicious for urothelial carcinoma and can be correlated with cystoscopy if not already performed. No metastatic disease detected in the abdomen or pelvis. No upper tract urothelial filling defects detected. ASSESSMENT/PLAN: 1. 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 The patient presented April 2023 with gross hematuria. Initial cystoscopy 08/01/2023 revealed a large diverticulum on the right bladder floor. CT urogram 09/03/2023 confirmed a large diverticulum arising from the right posterior wall of the urinary bladder. On 09/06/2023 he underwent robotic bladder diverticulectomy plus right pelvic lymph node dissection. Pathology revealed high-grade urothelial carcinoma, greatest dimension 5 cm, with invasion of the perivesical fat (T3b). 2 resected lymph nodes negative for metastasis. PET scan 10/16/2023 revealed no evidence of metastases. Postop recommendations were to proceed with adjuvant chemotherapy consisting of cisplatin plus gemcitabine 2 weeks on 1 week off x 4 cycles. Treatment started 11/05/2023. Due to adverse effects (malaise) and renal dysfunction cisplatin held with cycle 3-day 8. Completed cycle 4 day 8 on 01/15/2024. Repeat cystoscopy 02/18/2024 revealed erythematous mucosa, biopsy benign. Restaging CT scans 06/04/2024 revealed right lateral bladder wall thickening, otherwise unremarkable. Currently the patient has no evidence of disease. However, recent scans revealed right bladder wall thickening of unclear etiology. He is scheduled undergo cystoscopy in 08/22/2024. I will see him back in 3 months for follow-up. Assuming he remains stable we will restage again at 6 months. 2. Neurogenic bladder - ICD9: 596.54, ICD10: N31.9 Acute bladder dysfunction since 2005, at which time diagnosed with neurogenic bladder. Currently the patient does self-catheterization 4 times a day. 3. Hyperlipidemia - ICD9: 272.4, ICD10: E78.5 Stable on current medications, continue per PCP. 4. Primary hypertension - ICD9: 401.9, ICD10: I10 Stable on current medications, continue per PCP. 5. Abnormal thyroid imaging Baseline PET scan 10/16/2023 revealed diffusely enlarged thyroid demonstrating heterogeneous FDG avidity with multiple large thyroid nodules measuring up to 2.9 cm. Currently no clinical symptoms. Will arrange for thyroid ultrasound. Based on results consider referral to ENT. Faisal Dasilva MD CC: Jose J Donaldson Jr, DO documented in this encounter [facility] 06-04-2024 History of Present illness Narrative RADIOLOGY SERVICE PROGRESS NOTE SERVICE DATE: 06/04/2024 SERVICE TIME: 10:48 AM PATIENT IDENTITY VERIFICATION COMPLETED USING TWO (2) STANDARD IDENTIFIERS: Name and Date of confirmed by patient verbally FALL SCREENING: Has the patient had 2 falls in the last year or 1 fall with injury or currently using an Ambulatory Assistive Device (Walker, Cane, Wheelchair, Crutches, etc.)? No PATIENT GENDER DATA: .male ALLERGIES: Reviewed and unchanged MEDICATIONS REVIEWED: Not applicable PATIENT RELEVANT IMPLANT DATA REVIEWED: Not Applicable PATIENT PRESENTS WITH AN IMPLANTABLE OR ATTACHED METAL FABRICATOR APPRENTICE: No CREATININE: Creatinine Date Value Ref Range Status 06/04/2024 1.56 (H) 0.73 - 1.22 mg/dL Final 03/11/2024 1.38 (H) 0.73 - 1.22 mg/dL Final 02/12/2024 1.35 (H) 0.73 - 1.22 mg/dL Final Estimated Glomerular Filtration Rate Date Value Ref Range Status 06/04/2024 45 (L) >=60 mL/min/1.73m Final Comment: Estimated Glomerular Filtration Rate (eGFR) is calculated using the 2020 CKD-EPI creatinine equation. This equation utilizes serum creatinine, sex, and age as parameters. The creatinine assay has traceable calibration to isotope dilution-mass spectrometry. Refer to KDIGO guidelines for clinical interpretation. In patients with unstable renal function, e.g. those with acute kidney injury, the eGFR may not accurately reflect actual GFR. P.O.C.T. RESULTS: POC done: Yes, See Lab Tab June 04, [address] PERFORMED: Yes. RADIOLOGIST NOTIFIED?: No CONTRAST ALLERGY: NO. PREMEDICATED: Not applicable CONTRAST: IV 100 ml IV contrast (350) given and Oral Omnipaque 240 DIABETIC PATIENT: Not applicable IV SITE: Ambulatory: A peripheral IV was started in the Left antecubital site with a Angio cath: 20 gauge. POST EXAM PIV STATUS: Discontinued PROCEDURE TYPE: CT Chest/Abdomen/Pelvis with contrast PATIENT DISCHARGED TO: Ambulatory patient, left [place] department area. Is this a therapy: No A Diagnostic radioactive procedure has taken place, with no further precautions necessary other than routine body substance precautions. More information regarding radiation safety can be found using this link: [email or web address] [email or web address] SIGNATURE: [email or web address] Monahan) PATIENT NAME: Jolly Sierra DATE: June 04, 2024 TIME: 10:48 AM PAGER/CONTACT #: documented in this encounter [facility] 06-04-2024 Note HNO ID: [id number] Author: DONALD ROBERTSON RT(R) Service: ? Author Type: Technologist Type: Progress Notes Filed: 06/04/2024 10:49 Note Text: RADIOLOGY SERVICE PROGRESS NOTE SERVICE DATE: 06/04/2024 SERVICE TIME: 10:48 AM PATIENT IDENTITY VERIFICATION COMPLETED USING TWO (2) STANDARD IDENTIFIERS: Name and Date of confirmed by patient verbally FALL SCREENING: Has the patient had 2 falls in the last year or 1 fall with injury or currently using an Ambulatory Assistive Device (Walker, Cane, Wheelchair, Crutches, etc.)? No PATIENT GENDER DATA: .male ALLERGIES: Reviewed and unchanged MEDICATIONS REVIEWED: Not applicable PATIENT RELEVANT IMPLANT DATA REVIEWED: Not Applicable PATIENT PRESENTS WITH AN IMPLANTABLE OR ATTACHED METAL FABRICATOR APPRENTICE: No CREATININE: Creatinine Date Value Ref Range Status 06/04/2024 1.56 (H) 0.73 - 1.22 mg/dL Final 03/11/2024 1.38 (H) 0.73 - 1.22 mg/dL Final 02/12/2024 1.35 (H) 0.73 - 1.22 mg/dL Final Estimated Glomerular Filtration Rate Date Value Ref Range Status 06/04/2024 45 (L) >=60 mL/min/1.73m? Final Comment: Estimated Glomerular Filtration Rate (eGFR) is calculated using the 2020 CKD-EPI creatinine equation. This equation utilizes serum creatinine, sex, and age as parameters. The creatinine assay has traceable calibration to isotope dilution-mass spectrometry. Refer to KDIGO guidelines for clinical interpretation. In patients with unstable renal function, e.g. those with acute kidney injury, the eGFR may not accurately reflect actual GFR. P.O.C.T. RESULTS: POC done: Yes, See Lab Tab June 04, [address] PERFORMED: Yes. RADIOLOGIST NOTIFIED?: No CONTRAST ALLERGY: NO. PREMEDICATED: Not applicable CONTRAST: IV 100 ml IV contrast (350) given and Oral Omnipaque 240 DIABETIC PATIENT: Not applicable IV SITE: Ambulatory: A peripheral IV was started in the Left antecubital site with a Angio cath: 20 gauge. POST EXAM PIV STATUS: Discontinued PROCEDURE TYPE: CT Chest/Abdomen/Pelvis with contrast PATIENT DISCHARGED TO: Ambulatory patient, left [place] department area. Is this a therapy: No A Diagnostic radioactive procedure has taken place, with no further precautions necessary other than routine body substance precautions. More information regarding radiation safety can be found using this link: [email or web address]%[email or web address]%20Medicine [email or web address] SIGNATURE: RT Hero(R) PATIENT NAME: Jolly Sierra DATE: June 04, 2024 TIME: 10:48 AM PAGER/CONTACT #: [facility] 04-28-2024 Telephone encounter Note Please sign pended labs for 3 month f/u if agreeable-will draw with CT 1 week prior Thank You! Dilcia Cabrera RN [facility] 04-28-2024 Miscellaneous Notes Please sign pended labs for 3 month f/u if agreeable-will draw with CT 1 week prior Thank You! Dilcia Cabrera RN documented in this encounter [facility] 03-12-2024 Telephone encounter Note notified and verbalized understanding. She will pass the information along to her . Vivian Perez RN [facility] 03-12-2024 Telephone encounter Note ----- Message from Faisal Dasilva MD sent at 03/11/2024 4:07 PM EST ----- Please inform the patient/ of his test results from today. Creatinine still slightly elevated at 1.38. eGFR 52. Would encourage continuation of fluids is much as possible. Blood sugar slightly elevated at 155. We will continue as planned. [facility] 03-12-2024 Miscellaneous Notes notified and verbalized understanding. She will pass the information along to her . Vivian Perez RN ----- Message from Faisal Dasilva MD sent at 03/11/2024 4:07 PM EST ----- Please inform the patient/ of his test results from today. Creatinine still slightly elevated at 1.38. eGFR 52. Would encourage continuation of fluids is much as possible. Blood sugar slightly elevated at 155. We will continue as planned. documented in this encounter [facility] 03-10-2024 Note HNO ID: [id number] Author: FAISAL DASILVA MD Service: ? Author Type: Physician Type: Progress Notes Filed: 03/12/2024 06:32 Note Text: PATIENT NAME: Jolly Sierra DATE: 03/11/2024 PRIMARY CARE PHYSICIAN: Jose J Donaldson Jr, DO OTHER PHYSICIANS: Dr. Jason Will, Dr. Antonio Gary Portions of this encounter note have been copied from the note from 02/12/2024 and has been updated where appropriate, and reflect my current medical decision making from today. CC: This is a 78 year old male with a history of localized bladder cancer, seen for scheduled follow-up. INTERM HISTORY: Patient's last visit here he underwent a follow-up cystoscopy 02/18/2024. His bladder revealed several papular erythematous areas, but biopsies all benign. He has had no other medical changes. Energy and appetite are returned to baseline after completing chemotherapy. He has mild numbness in his right foot, otherwise no adverse effects. He still is recurrent undergo self-catheterization several times per day. He denies any hematuria or dysuria. MEDICATIONS: Current Outpatient Medications Medication Sig spironolactone (ALDACTONE) 50 mg tablet Take 50 mg by mouth once daily. psyllium seed, with sugar, (METAMUCIL, SUGAR, ORAL) Take by mouth. ramipril (ALTACE) 10 mg capsule Take 10 mg by mouth once daily. ondansetron (ZOFRAN) 8 mg tablet Take 1 tablet by mouth every 8 hours as needed for nausea/vomiting. prochlorperazine (COMPAZINE) 10 mg tablet Take 1 tablet by mouth every 6 hours as needed. No current facility-administered medications for this visit. ALLERGIES: ALLERGIES No Known Allergies PAST MEDICAL HISTORY: PAST MEDICAL HISTORY Diagnosis Date HLD (hyperlipidemia) HTN (hypertension) Neurogenic bladder PAST SURGICAL HISTORY: PAST SURGICAL HISTORY Procedure Laterality Date CYSTOSCOPY PAST SURGICAL HISTORY OF 2006 bladder surgery PAST SURGICAL HISTORY OF Robotic Laproscopic Cystoplasty bladder augmentation with stent FAMILY HISTORY: FAMILY HISTORY Problem Relation Age of Onset Heart disease Father SOCIAL HISTORY: Social History Tobacco Use Smoking status: Never Passive exposure: Never Smokeless tobacco: Never Vaping Use Vaping status: Never Used Substance Use Topics Alcohol use: Not Currently Drug use: Never COMPLETE REVIEW OF SYSTEMS: CONSTITUTION: Negative for pain, fatigue, weight loss, or appetite loss. EENT: Negative for mouth soreness, antibiotics use, epistaxis, visual problems, neck or facial swelling, fever/chills, bleeding gums, or hearing loss. CV: +mild L ankle edema. Negative for calf swelling, palpitations, or chest pain. RESPIRATORY: Negative for cough, SOB, hemoptysis, or wheezing. GI: +mild nausea. Negative for vomiting, heartburn, vomiting blood, dysphasia, diarrhea, blood in stool, constipation, early satiety, PICA, vegetarian, poor nutrition, abdominal fullness, or abdominal pain. NEUROLOGICAL: Negative for numbness/tingling, dizziness, gait disturbance, headache, speech disturbance, tremor, hemiparesis/sensory loss, or change in mental status. MUSCULOSKELETAL: Negative for joint pain, joint swelling, or proximal muscle weakness. SKIN: Negative for hair loss, bruising, nail changes, rash, itching, pallor, or jaundice. ENDO/URO: Negative for hot flashes, cold or heat intolerance, urinary frequency, urinary hesitancy, menorrhagia, or hematuria. PSYCH: Negative for anxiety, depression, or other. PHYSICAL EXAM: BP 148/78 Pulse 69 Temp 36.2 ?C (97.1 ?F) (Temporal) Resp 18 Wt 85.2 kg (187 lb 13.3 oz) SpO2 99% BMI 26.95 kg/m? General: Alert and oriented, no distress, pleasant and cooperative. Heart: Regular, normal S1 and S2, no murmurs, rubs, or gallops Lungs: Clear to auscultation bilaterally Abdomen: Benign Extremities: Feet/ankles without edema, right medial antecub with small area of swelling, no redness or warmth PATHOLOGY: 02/18/2024 Cystoscopy bladder mucosa with mixed acute and chronic inflammation and reactive changes. No muscularis propria identified 09/06/2023 Robotic bladder diverticulectomy and right pelvic lymph node dissection. A. Urinary bladder, neck of diverticulum, excision: - Benign bladder mucosa and muscularis propria. B. Lymph nodes, right pelvic, regional resection: - Two lymph nodes, negative for malignancy (0/2). C. 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 - Margins are negative for tumor. LABS: Hemoglobin (g/dL) Date Value 03/11/2024 10.7 Hematocrit (%) Date Value 03/11/2024 33.1 WBC (k/uL) Date Value 03/11/2024 5.84 Platelet Count (k/uL) Date Value 03/11/2024 157 RADIOLOGY/OTHER STUDIES: 02/18/2024 Cystoscopy Several areas of erythema unclear if inflammatory versus malignant. Anterior blad (more content not included)... [facility] 03-10-2024 History of Present illness Narrative PATIENT NAME: Jolly Sierra DATE: 03/11/2024 PRIMARY CARE PHYSICIAN: Jose J Donaldson Jr, DO OTHER PHYSICIANS: Dr. Jason Will, Dr. Antonio Gary Portions of this encounter note have been copied from the note from 02/12/2024 and has been updated where appropriate, and reflect my current medical decision making from today. CC: This is a 78 year old male with a history of localized bladder cancer, seen for scheduled follow-up. INTERM HISTORY: Patient's last visit here he underwent a follow-up cystoscopy 02/18/2024. His bladder revealed several papular erythematous areas, but biopsies all benign. He has had no other medical changes. Energy and appetite are returned to baseline after completing chemotherapy. He has mild numbness in his right foot, otherwise no adverse effects. He still is recurrent undergo self-catheterization several times per day. He denies any hematuria or dysuria. MEDICATIONS: Current Outpatient Medications Medication Sig spironolactone (ALDACTONE) 50 mg tablet Take 50 mg by mouth once daily. psyllium seed, with sugar, (METAMUCIL, SUGAR, ORAL) Take by mouth. ramipril (ALTACE) 10 mg capsule Take 10 mg by mouth once daily. ondansetron (ZOFRAN) 8 mg tablet Take 1 tablet by mouth every 8 hours as needed for nausea/vomiting. prochlorperazine (COMPAZINE) 10 mg tablet Take 1 tablet by mouth every 6 hours as needed. No current facility-administered medications for this visit. ALLERGIES: ALLERGIES No Known Allergies PAST MEDICAL HISTORY: PAST MEDICAL HISTORY Diagnosis Date HLD (hyperlipidemia) HTN (hypertension) Neurogenic bladder PAST SURGICAL HISTORY: PAST SURGICAL HISTORY Procedure Laterality Date CYSTOSCOPY PAST SURGICAL HISTORY OF 2006 bladder surgery PAST SURGICAL HISTORY OF Robotic Laproscopic Cystoplasty bladder augmentation with stent FAMILY HISTORY: FAMILY HISTORY Problem Relation Age of Onset Heart disease Father SOCIAL HISTORY: Social History Tobacco Use Smoking status: Never Passive exposure: Never Smokeless tobacco: Never Vaping Use Vaping status: Never Used Substance Use Topics Alcohol use: Not Currently Drug use: Never COMPLETE REVIEW OF SYSTEMS: CONSTITUTION: Negative for pain, fatigue, weight loss, or appetite loss. EENT: Negative for mouth soreness, antibiotics use, epistaxis, visual problems, neck or facial swelling, fever/chills, bleeding gums, or hearing loss. CV: +mild L ankle edema. Negative for calf swelling, palpitations, or chest pain. RESPIRATORY: Negative for cough, SOB, hemoptysis, or wheezing. GI: +mild nausea. Negative for vomiting, heartburn, vomiting blood, dysphasia, diarrhea, blood in stool, constipation, early satiety, PICA, vegetarian, poor nutrition, abdominal fullness, or abdominal pain. NEUROLOGICAL: Negative for numbness/tingling, dizziness, gait disturbance, headache, speech disturbance, tremor, hemiparesis/sensory loss, or change in mental status. MUSCULOSKELETAL: Negative for joint pain, joint swelling, or proximal muscle weakness. SKIN: Negative for hair loss, bruising, nail changes, rash, itching, pallor, or jaundice. ENDO/URO: Negative for hot flashes, cold or heat intolerance, urinary frequency, urinary hesitancy, menorrhagia, or hematuria. PSYCH: Negative for anxiety, depression, or other. PHYSICAL EXAM: BP 148/78 Pulse 69 Temp 36.2 C (97.1 F) (Temporal) Resp 18 Wt 85.2 kg (187 lb 13.3 oz) SpO2 99% BMI 26.95 kg/m General: Alert and oriented, no distress, pleasant and cooperative. Heart: Regular, normal S1 and S2, no murmurs, rubs, or gallops Lungs: Clear to auscultation bilaterally Abdomen: Benign Extremities: Feet/ankles without edema, right medial antecub with small area of swelling, no redness or warmth PATHOLOGY: 02/18/2024 Cystoscopy bladder mucosa with mixed acute and chronic inflammation and reactive changes. No muscularis propria identified 09/06/2023 Robotic bladder diverticulectomy and right pelvic lymph node dissection. A. Urinary bladder, neck of diverticulum, excision: - Benign bladder mucosa and muscularis propria. B. Lymph nodes, right pelvic, regional resection: - Two lymph nodes, negative for malignancy (0/2). C. 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 - Margins are negative for tumor. LABS: Hemoglobin (g/dL) Date Value 03/11/2024 10.7 Hematocrit (%) Date Value 03/11/2024 33.1 WBC (k/uL) Date Value 03/11/2024 5.84 Platelet Count (k/uL) Date Value 03/11/2024 157 RADIOLOGY/OTHER STUDIES: 02/18/2024 Cystoscopy Several areas of erythema unclear if inflammatory versus malignant. Anterior bladder wall, left lateral wall, posterior bladder wall and right lateral wall. All areas between 1 to 3 cm in size. Biopsies taken in 4 areas as described above. Remaining erythema was fulgurated. Pathology on biopsy specimen benign. Bladder mucosa with mixed acute and chronic inflammation and reactive changes. 10/16/2023 PET scan IMPRESSION: HEAD/NECK: * No FDG avid neoplastic process. * Diffusely enlarged thyroid demonstrating heterogeneous FDG avidity with multiple large thyroid nodules measuring up to 2.9 cm. Correlate with serology and/or thyroid ultrasound for TI-RADS ultrasound criteria evaluation and decision support regarding observation versus tissue sampling. ? CHEST: * No FDG avid neoplastic process. ABDOMEN/PELVIS: * Prior RIGHT urinary bladder diverticulectomy with residual bladder wall thickening in the operative bed and extending along the urinary bladder fundus. Degree of FDG avidity is poorly assessed due to adjacent urinary bladder luminal FDG avidity. Continued attention on follow-up is recommended * No hypermetabolic abdominopelvic lymphadenopathy. * Nonspecific bilateral adrenal gland uptake, possibly physiologic or secondary to hyperplasia. Attention on follow-up. * Mild, diffuse radiotracer uptake within the prostate without discrete focal lesion. Correlate with PSA. * Ill-defined minimally FDG avid soft tissue attenuation in the LEFT inguinal region likely representing postoperative material given reported history of prior incarcerated LEFT inguinal hernia repair. Continued attention on follow-up. MUSCULOSKELETAL: * No FDG avid neoplastic process. 09/03/2023 CT urogram IMPRESSION: 1. Large diverticulum arising from the right posterior wall of the urinary bladder. There is asymmetric wall thickening and increased enhancement along the posterior and superior aspect of the bladder diverticulum. This is highly suspicious for urothelial carcinoma and can be correlated with cystoscopy if not already performed. No metastatic disease detected in the abdomen or pelvis. No upper tract urothelial filling defects detected. ASSESSMENT/PLAN: 1. 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 The patient presented April 2023 with gross hematuria. Initial cystoscopy 08/01/2023 revealed a large diverticulum on the right bladder floor. CT urogram 09/03/2023 confirmed a large diverticulum arising from the right posterior wall of the urinary bladder. On 09/06/2023 he underwent robotic bladder diverticulectomy plus right pelvic lymph node dissection. Pathology revealed high-grade urothelial carcinoma, greatest dimension 5 cm, with invasion of the perivesical fat (T3b). 2 resected lymph nodes negative for metastasis. PET scan 10/16/2023 revealed no evidence of metastases. Postop recommendations were to proceed with adjuvant chemotherapy consisting of cisplatin plus gemcitabine 2 weeks on 1 week off x 4 cycles. Treatment started 11/05/2023. Due to adverse effects (malaise) and renal dysfunction cisplatin held with cycle 3-day 8. Completed cycle 4 day 8 on 01/15/2024. Repeat cystoscopy 02/18/2024 revealed erythematous mucosa, biopsy benign. Currently the patient has no evidence of disease. At this time we will continue close observation. Restage with CT scans in 3 months, the patient will then return for follow-up. He will also follow-up with his other physicians as scheduled. 2. Neurogenic bladder - ICD9: 596.54, ICD10: N31.9 Acute bladder dysfunction since 2005. Previously the patient required CIC several times daily. Currently he does self-catheterization 3-4 times a day. 3. Hyperlipidemia - ICD9: 272.4, ICD10: E78.5 Stable on current medications, continue per PCP. 4. Primary hypertension - ICD9: 401.9, ICD10: I10 Stable on current medications, continue per PCP. 5. Abnormal thyroid Baseline PET scan 10/16/2023 revealed diffusely enlarged thyroid demonstrating heterogeneous FDG avidity with multiple large thyroid nodules measuring up to 2.9 cm. Currently no clinical symptoms. He will follow-up with his PCP for further management, possibly to include thyroid ultrasound +/- referral to ENT. Faisal Dasilva MD CC: Jose J Donaldson Jr DO documented in this encounter [facility] 02-19-2024 Telephone encounter Note FINAL DIAGNOSIS A. Urinary bladder,biopsy: - Bladder mucosa with mixed acute and chronic inflammation and reactive changes. - No muscularis propria identified. called and gave path recommend FU cysto in 6 mo Jason Will MD [facility] Work Phone: 02-19-2024 Miscellaneous Notes FINAL DIAGNOSIS A. Urinary bladder,biopsy: - Bladder mucosa with mixed acute and chronic inflammation and reactive changes. - No muscularis propria identified. called and gave path recommend FU cysto in 6 mo Jason Will MD documented in this encounter [facility] 02-19-2024 Telephone encounter Note Patient had Transurethral resection of bladder tumor -small - 1cm by Dr. Will on 02/18/2024 February 19, 2024 10:19 AM Patient called for post op follow up assessment. Reports he is doing well. Pain: Patient rates pain 0 on a scale of 0-10. 0 being no pain and 10 being worst pain imaginable. Diet: Patient is able tolerate fluids and normal diet. Voiding: Patient is able to void and CIC without difficulty clear yellow Medication: Denies questions or concerns about medication. Post op restrictions reviewed with patient including - reviewed signs and symptoms to notify office including signs of infection, fever, heavy bleeding. - he is aware of post op appointment: TBD Patient verbalized understanding and denies further questions at this time. Understands to call the office with further concerns/questions. Mahi Hansen RN [facility] 02-19-2024 Miscellaneous Notes Patient had Transurethral resection of bladder tumor -small - 1cm by Dr. Will on 02/18/2024 February 19, 2024 10:19 AM Patient called for post op follow up assessment. Reports he is doing well. Pain: Patient rates pain 0 on a scale of 0-10. 0 being no pain and 10 being worst pain imaginable. Diet: Patient is able tolerate fluids and normal diet. Voiding: Patient is able to void and CIC without difficulty clear yellow Medication: Denies questions or concerns about medication. Post op restrictions reviewed with patient including - reviewed signs and symptoms to notify office including signs of infection, fever, heavy bleeding. - he is aware of post op appointment: TBD Patient verbalized understanding and denies further questions at this time. Understands to call the office with further concerns/questions. 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 Staffing Anesthesiologist: Darren Reyes DO COMMERCIAL GLAZIER: Deidra Fierro APRN.[employer]CIAL GLAZIER Performed by: COMMERCIAL GLAZIER Indications and Patient Condition Indications for airway management: anesthesia Preoxygenated: yes anesthesia circuit Method: asleep Difficult Mask: No Final Airway Details Final airway type: supraglottic airway Number of attempts at approach: 1 Final Supraglottic Airway: IGEL Size 4 Seal Adequate: yes Airway not difficult SIGNATURE: Deidra Fierro APRN.CRNA PATIENT NAME: Jolly Sierra DATE: February 18, 2024 TIME: 9:49 AM CSN: [id number] [facility] 02-12-2024 History of Present illness Narrative PATIENT NAME: Jolly Sierra DATE: 02/12/2024 PRIMARY CARE PHYSICIAN: Jose J Donaldson Jr, DO OTHER PHYSICIANS: Dr. Jason Will, Dr. Antonio Gary Portions of this encounter note have been copied from the note from 01/08/2024 and has been updated where appropriate, and reflect my current medical decision making from today. CC: This is a 78 year old male with recently diagnosed bladder cancer, seen for scheduled follow-up. INTERM HISTORY: Patient is here for follow-up today. At the patient's last infusion on 01/14 he received gemcitabine and cisplatin after not feeling well the week prior. Today the patient is feeling better. Energy and appetite is much better. No fevers or night sweats. Still mild leg swelling, but much better. Patient reports mild nausea, no vomitting. Patient is not in pain today. Patient has cystoscopy scheduled for 02/17. Denies any hematuria or dysuria. MEDICATIONS: Current Outpatient Medications Medication Sig psyllium seed, with sugar, (METAMUCIL, SUGAR, ORAL) Take by mouth. ondansetron (ZOFRAN) 8 mg tablet Take 1 tablet by mouth every 8 hours as needed for nausea/vomiting. prochlorperazine (COMPAZINE) 10 mg tablet Take 1 tablet by mouth every 6 hours as needed. ramipril (ALTACE) 10 mg capsule Take 10 mg by mouth once daily. No current facility-administered medications for this visit. ALLERGIES: ALLERGIES No Known Allergies PAST MEDICAL HISTORY: PAST MEDICAL HISTORY Diagnosis Date HLD (hyperlipidemia) HTN (hypertension) Neurogenic bladder PAST SURGICAL HISTORY: PAST SURGICAL HISTORY Procedure Laterality Date CYSTOSCOPY PAST SURGICAL HISTORY OF 2006 bladder surgery PAST SURGICAL HISTORY OF Robotic Laproscopic Cystoplasty bladder augmentation with stent FAMILY HISTORY: FAMILY HISTORY Problem Relation Age of Onset Heart disease Father SOCIAL HISTORY: Social History Tobacco Use Smoking status: Never Passive exposure: Never Smokeless tobacco: Never Vaping Use Vaping status: Never Used Substance Use Topics Alcohol use: Not Currently Drug use: Never COMPLETE REVIEW OF SYSTEMS: CONSTITUTION: Negative for pain, fatigue, weight loss, or appetite loss. EENT: Negative for mouth soreness, antibiotics use, epistaxis, visual problems, neck or facial swelling, fever/chills, bleeding gums, or hearing loss. CV: +mild L ankle edema. Negative for calf swelling, palpitations, or chest pain. RESPIRATORY: Negative for cough, SOB, hemoptysis, or wheezing. GI: +mild nausea. Negative for vomiting, heartburn, vomiting blood, dysphasia, diarrhea, blood in stool, constipation, early satiety, PICA, vegetarian, poor nutrition, abdominal fullness, or abdominal pain. NEUROLOGICAL: Negative for numbness/tingling, dizziness, gait disturbance, headache, speech disturbance, tremor, hemiparesis/sensory loss, or change in mental status. MUSCULOSKELETAL: Negative for joint pain, joint swelling, or proximal muscle weakness. SKIN: Negative for hair loss, bruising, nail changes, rash, itching, pallor, or jaundice. ENDO/URO: Negative for hot flashes, cold or heat intolerance, urinary frequency, urinary hesitancy, menorrhagia, or hematuria. PSYCH: Negative for anxiety, depression, or other. PHYSICAL EXAM: BP 138/70 Pulse 62 Temp 36.5 C (97.7 F) (Temporal) Resp 16 Ht 177.8 cm (5' 10 ) Wt 84.9 kg (187 lb 2.7 oz) SpO2 100% BMI 26.86 kg/m General: Alert and oriented, no distress, pleasant and cooperative. Heart: Regular, normal S1 and S2, no murmurs, rubs, or gallops Lungs: Clear to auscultation bilaterally Abdomen: Benign Extremities: Feet/ankles without edema, right medial antecub with small area of swelling, no redness or warmth PATHOLOGY: 09/06/2023 Robotic bladder diverticulectomy and right pelvic lymph node dissection. A. Urinary bladder, neck of diverticulum, excision: - Benign bladder mucosa and muscularis propria. B. Lymph nodes, right pelvic, regional resection: - Two lymph nodes, negative for malignancy (0/2). C. 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 - Margins are negative for tumor. LABS: Hemoglobin (g/dL) Date Value 02/12/2024 9.8 Hematocrit (%) Date Value 02/12/2024 30.4 WBC (k/uL) Date Value 02/12/2024 7.23 Platelet Count (k/uL) Date Value 02/12/2024 136 RADIOLOGY/OTHER STUDIES: 10/16/2023 PET scan IMPRESSION: HEAD/NECK: * No FDG avid neoplastic process. * Diffusely enlarged thyroid demonstrating heterogeneous FDG avidity with multiple large thyroid nodules measuring up to 2.9 cm. Correlate with serology and/or thyroid ultrasound for TI-RADS ultrasound criteria evaluation and decision support regarding observation versus tissue sampling. ? CHEST: * No FDG avid neoplastic process. ABDOMEN/PELVIS: * Prior RIGHT urinary bladder diverticulectomy with residual bladder wall thickening in the operative bed and extending along the urinary bladder fundus. Degree of FDG avidity is poorly assessed due to adjacent urinary bladder luminal FDG avidity. Continued attention on follow-up is recommended * No hypermetabolic abdominopelvic lymphadenopathy. * Nonspecific bilateral adrenal gland uptake, possibly physiologic or secondary to hyperplasia. Attention on follow-up. * Mild, diffuse radiotracer uptake within the prostate without discrete focal lesion. Correlate with PSA. * Ill-defined minimally FDG avid soft tissue attenuation in the LEFT inguinal region likely representing postoperative material given reported history of prior incarcerated LEFT inguinal hernia repair. Continued attention on follow-up. MUSCULOSKELETAL: * No FDG avid neoplastic process. 09/03/2023 CT urogram IMPRESSION: 1. Large diverticulum arising from the right posterior wall of the urinary bladder. There is asymmetric wall thickening and increased enhancement along the posterior and superior aspect of the bladder diverticulum. This is highly suspicious for urothelial carcinoma and can be correlated with cystoscopy if not already performed. No metastatic disease detected in the abdomen or pelvis. No upper tract urothelial filling defects detected. ASSESSMENT/PLAN: 1. 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 The patient presented in April 2023 with gross hematuria. Initial cystoscopy 08/01/2023 revealed a large diverticulum on the right bladder floor. CT urogram 09/03/2023 confirmed a large diverticulum arising from the right posterior wall of the urinary bladder. On 09/06/2023 he underwent robotic bladder diverticulectomy plus right pelvic lymph node dissection. Pathology revealed high-grade urothelial carcinoma, greatest dimension 5 cm, with invasion of the perivesical fat (T3b). 2 resected lymph nodes were negative for metastasis. PET scan 10/16/2023 revealed no evidence of metastases. Postop recommendations were to proceed with adjuvant chemotherapy consisting of cisplatin plus gemcitabine x 4 cycles. Treatment started 11/05/2023. Due to adverse effects (malaise) and renal dysfunction cisplatin held with cycle 3-day 8. Completed cycle 4 on 01/15/2024. Currently doing well with mild renal dysfunction on labs today. At this time the patient has improved from chemotherapy. He does, however, have mild renal dysfunction that will need monitored. His anemia is improving as well. He will undergo cystoscopy with urology on 02/18/2024 as scheduled and see us back in 4 weeks for repeat labs and follow-up. At that time we will discuss surveillance and imaging. 2. Neurogenic bladder - ICD9: 596.54, ICD10: N31.9 Acute bladder dysfunction since 2005. Previously the patient required CIC several times daily. Currently he does self-catheterization 3-4 times a day. 3. Hyperlipidemia - ICD9: 272.4, ICD10: E78.5 Stable on current medications, continue per PCP. 4. Primary hypertension - ICD9: 401.9, ICD10: I10 Stable on current medications, continue per PCP. 5. Abnormal thyroid Baseline PET scan 10/16/2023 revealed diffusely enlarged thyroid demonstrating heterogeneous FDG avidity with multiple large thyroid nodules measuring up to 2.9 cm. Will discuss further evaluation including thyroid ultrasound +/- referral to ENT after chemotherapy is completed. 6. Chemotherapy-induced anemia Since the start of chemotherapy the patient has developed moderate anemia. Would consider EPO if hemoglobin remains below 10. Would monitor iron stores and supplement with IV iron if indicated. BETTE Sewell-S2 The above patient was seen and examined by myself along with the student. Changes were made to the note as appropriate. Marlee Dan PA-C CC: Dr. Lalito Roman spent a total of 20 minutes on the date of the service which included preparing to see the patient, [id number] patient care, completing clinical documentation, performing a medically appropriate examination, counseling and educating the patient/family/caregiver, ordering medications, tests, or procedures, independently interpreting results (not separately reported), communicating results to the patient/family/caregiver, and care coordination (not separately reported). documented in this encounter [facility] 02-12-2024 Note HNO ID: [id number] Author: MARLEE DAN PA-C Service: ? Author Type: Physician Nsh Teacher Type: Progress Notes Filed: 02/12/2024 10:28 Note Text: PATIENT NAME: Jolly Sierra DATE: 02/12/2024 PRIMARY CARE PHYSICIAN: Jose J Donaldson Jr, DO OTHER PHYSICIANS: Dr. Jason Will, Dr. Antonio Gary Portions of this encounter note have been copied from the note from 01/08/2024 and has been updated where appropriate, and reflect my current medical decision making from today. CC: This is a 78 year old male with recently diagnosed bladder cancer, seen for scheduled follow-up. INTERM HISTORY: Patient is here for follow-up today. At the patient's last infusion on 01/14 he received gemcitabine and cisplatin after not feeling well the week prior. Today the patient is feeling better. Energy and appetite is much better. No fevers or night sweats. Still mild leg swelling, but much better. Patient reports mild nausea, no vomitting. Patient is not in pain today. Patient has cystoscopy scheduled for 02/17. Denies any hematuria or dysuria. MEDICATIONS: Current Outpatient Medications Medication Sig psyllium seed, with sugar, (METAMUCIL, SUGAR, ORAL) Take by mouth. ondansetron (ZOFRAN) 8 mg tablet Take 1 tablet by mouth every 8 hours as needed for nausea/vomiting. prochlorperazine (COMPAZINE) 10 mg tablet Take 1 tablet by mouth every 6 hours as needed. ramipril (ALTACE) 10 mg capsule Take 10 mg by mouth once daily. No current facility-administered medications for this visit. ALLERGIES: ALLERGIES No Known Allergies PAST MEDICAL HISTORY: PAST MEDICAL HISTORY Diagnosis Date HLD (hyperlipidemia) HTN (hypertension) Neurogenic bladder PAST SURGICAL HISTORY: PAST SURGICAL HISTORY Procedure Laterality Date CYSTOSCOPY PAST SURGICAL HISTORY OF 2006 bladder surgery PAST SURGICAL HISTORY OF Robotic Laproscopic Cystoplasty bladder augmentation with stent FAMILY HISTORY: FAMILY HISTORY Problem Relation Age of Onset Heart disease Father SOCIAL HISTORY: Social History Tobacco Use Smoking status: Never Passive exposure: Never Smokeless tobacco: Never Vaping Use Vaping status: Never Used Substance Use Topics Alcohol use: Not Currently Drug use: Never COMPLETE REVIEW OF SYSTEMS: CONSTITUTION: Negative for pain, fatigue, weight loss, or appetite loss. EENT: Negative for mouth soreness, antibiotics use, epistaxis, visual problems, neck or facial swelling, fever/chills, bleeding gums, or hearing loss. CV: +mild L ankle edema. Negative for calf swelling, palpitations, or chest pain. RESPIRATORY: Negative for cough, SOB, hemoptysis, or wheezing. GI: +mild nausea. Negative for vomiting, heartburn, vomiting blood, dysphasia, diarrhea, blood in stool, constipation, early satiety, PICA, vegetarian, poor nutrition, abdominal fullness, or abdominal pain. NEUROLOGICAL: Negative for numbness/tingling, dizziness, gait disturbance, headache, speech disturbance, tremor, hemiparesis/sensory loss, or change in mental status. MUSCULOSKELETAL: Negative for joint pain, joint swelling, or proximal muscle weakness. SKIN: Negative for hair loss, bruising, nail changes, rash, itching, pallor, or jaundice. ENDO/URO: Negative for hot flashes, cold or heat intolerance, urinary frequency, urinary hesitancy, menorrhagia, or hematuria. PSYCH: Negative for anxiety, depression, or other. PHYSICAL EXAM: BP 138/70 Pulse 62 Temp 36.5 ?C (97.7 ?F) (Temporal) Resp 16 Ht 177.8 cm (5' 10 ) Wt 84.9 kg (187 lb 2.7 oz) SpO2 100% BMI 26.86 kg/m? General: Alert and oriented, no distress, pleasant and cooperative. Heart: Regular, normal S1 and S2, no murmurs, rubs, or gallops Lungs: Clear to auscultation bilaterally Abdomen: Benign Extremities: Feet/ankles without edema, right medial antecub with small area of swelling, no redness or warmth PATHOLOGY: 09/06/2023 Robotic bladder diverticulectomy and right pelvic lymph node dissection. A. Urinary bladder, neck of diverticulum, excision: - Benign bladder mucosa and muscularis propria. B. Lymph nodes, right pelvic, regional resection: - Two lymph nodes, negative for malignancy (0/2). C. 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 - Margins are negative for tumor. LABS: Hemoglobin (g/dL) Date Value 02/12/2024 9.8 Hematocrit (%) Date Value 02/12/2024 30.4 WBC (k/uL) Date Value 02/12/2024 7.23 Platelet Count (k/uL) Date Value 02/12/2024 136 RADIOLOGY/OTHER STUDIES: 10/16/2023 PET scan IMPRESSION: HEAD/NECK: * No FDG avid neoplastic process. * Diffusely enlarged thyroid demonstrating heterogeneous FDG avidity with multiple large thyroid nodules measuring up to 2.9 cm. Correlate with serology and/or thyroid ultrasound for TI-RADS ultrasound c (more content not included)... [facility] 02-11-2024 Telephone encounter Note Procedure: TURBT Physician: Dr. Jason Will Location: [facility]: [phone] Date & Time: 02/18/2024 MEDICAL CLEARANCE: No CARDIAC CLEARANCE: No PRE ADMISSION TESTIN01/28/24 AT: [place] THE FOLLOWING WAS EVALUATED Motivation To Learn: Interested Family/Significant Other Support: High - Very involved in pt care Cognitive Ability: Alert and oriented Patient Learns Best By: Individual Instruction Written Instruction - Hand-outs Verbal Instruction The Following Influencing Factors Were Barriers To This Education Session: None The Following Physical Limitations Were Barriers To This Education Session: None Instruction Provided To: Patient and Spouse MEDICATION INFORMATION ASPIRIN and ADVIL can make you more prone to bleeding after surgery. Please STOP taking these medications at least (5) days before and for (3) days after surgery or procedure. Some common medications that contain ASPIRIN or act like Aspirin are TO BE AVOIDED: This is a list of the medications you should avoid: Advill Celebrex Motrin Aggrenox Clinoril Naprosyn(naproxen) Agrylin NSAIDS Pepto-Bismol Aleve Ecotrin Persantine Cyndi-Melrose Excedrin Plaquenil Anacin Heparin Plavix Ascriptin Herbals Pletal Aspergum Ibuprofen Ticlid Lydia Indocin Trental Bextra Midol Vanquish Bufferin Gingko Biloba Vitamin E (MVI) MEDICATIONS YOU MAY SUBSTITUTE Anacin 3 Fioricet * Tylenol with codeine * Darvocet N 100 * Plenadol Percocet * Datril Sine-Aide Tylenol Excedrin PM (*Denotes prescription needed to obtain these medications) Learning Topic: Pre/post op information Instructions reviewed for arrival time, parking and admission. Specific topics reviewed and discussed with all surgical patients include: No eating, drinking, or smoking after midnight prior to surgery. Medications as prescribed by anesthesia or the physician. Bowel Prep as indicated. None Review of information contained in surgical packet Pre-operative and intra-operative general activities were reviewed including: Holding Area, assessments, surgical positioning, and Family Waiting Area. Written post-operative instructions were given to the patient regarding post-op activity, pain control, symptoms to report. Post-operative instructions provided and reviewed with patient/family: ACTIVITY - No heavy lifting (>5-10 lbs), no pushing/pulling, OK to climb stairs DRIVING - No driving while taking prescription pain medication, or within 24 hours of anesthesia, OK to ride in a car. DIET - Advance diet as tolerated and as ordered by MD, drink 8 glasses of water a day, eat a diet high in protein and fiber unless otherwise directed by MD. CATHETER - Will be inserted during surgery, you may go home with a catheter. If you go home with a catheter you will have to come back to the office for a voiding trial, UTI symptoms reviewed and patient instructed to notify MD of any of these symptoms. INCISION CARE - Keep incision clean and dry, johnny to be removed 7-10 days after surgery, steristrips do not need to be removed by MD BATHING - OK to shower after surgery unless otherwise directed by MD, no tub baths. PAIN MEDICATION - IV pain medication after surgery, IV FARM CONTRACTOR if ordered by MD, discharged home with a prescription for PO pain medication, pain management after surgery, side effects of pain medication (including constipation, dizziness, drowsiness, and medication interactions). DVT PROPHYLAXIS - Early ambulation, SCDs, injectable anticoagulants (heparin, lovenox, etc) RESPIRATORY - Incentive spirometer, coughing/deep breathing exercises, ambulation. RETURN TO WORK - As directed by physician, please send any FMLA papers to physician's escrow secretary. SYMPTOMS TO NOTIFY MD - Fever, chills, nausea, vomiting, increased or severe pain, heavy bleeding, foul smelling drainage, pain or swelling in extremities. URGENT SYMPTOMS - Call 911 or go to ER if any shortness of breath, difficulty breathing, or chest pain. HOW TO CONTACT PHYSICIAN - Physician's office phone number given to patient, if after hours patient instructed to call boarding machine operator and ask for the doctor cannon pinion adjuster. Patient and family have phone number to call 24 hours/day. Patient Evaluation: Verbalizes understanding Patient and/or family express understanding of upcoming surgery and the operative process. Questions answered. Follow Up Plan: Follow up as needed Supplemental Material Given: Pre-operative teaching packet provided to the patient: INPATIENT/OUTPATIENT printed instructions; Post-operative instruction sheet, bowel prep instruction sheet For questions contact: Dr. Jason Will's office at [phone] Instructed By Amarilsi Oh RN [facility] 02-11-2024 Miscellaneous Notes Procedure: TURBT Physician: Dr. Jason Will Location: [facility]: [phone] Date & Time: 02/18/2024 MEDICAL CLEARANCE: No CARDIAC CLEARANCE: No PRE ADMISSION TESTIN01/28/24 AT: [place] THE FOLLOWING WAS EVALUATED Motivation To Learn: Interested Family/Significant Other Support: High - Very involved in pt care Cognitive Ability: Alert and oriented Patient Learns Best By: Individual Instruction Written Instruction - Hand-outs Verbal Instruction The Following Influencing Factors Were Barriers To This Education Session: None The Following Physical Limitations Were Barriers To This Education Session: None Instruction Provided To: Patient and Spouse MEDICATION INFORMATION ASPIRIN and ADVIL can make you more prone to bleeding after surgery. Please STOP taking these medications at least (5) days before and for (3) days after surgery or procedure. Some common medications that contain ASPIRIN or act like Aspirin are TO BE AVOIDED: This is a list of the medications you should avoid: Advill Celebrex Motrin Aggrenox Clinoril Naprosyn(naproxen) Agrylin NSAIDS Pepto-Bismol Aleve Ecotrin Persantine Cyndi-Melrose Excedrin Plaquenil Anacin Heparin Plavix Ascriptin Herbals Pletal Aspergum Ibuprofen Ticlid Lydia Indocin Trental Bextra Midol Vanquish Bufferin Gingko Biloba Vitamin E (MVI) MEDICATIONS YOU MAY SUBSTITUTE Anacin 3 Fioricet * Tylenol with codeine * Darvocet N 100 * Plenadol Percocet * Datril Sine-Aide Tylenol Excedrin PM (*Denotes prescription needed to obtain these medications) Learning Topic: Pre/post op information Instructions reviewed for arrival time, parking and admission. Specific topics reviewed and discussed with all surgical patients include: No eating, drinking, or smoking after midnight prior to surgery. Medications as prescribed by anesthesia or the physician. Bowel Prep as indicated. None Review of information contained in surgical packet Pre-operative and intra-operative general activities were reviewed including: Holding Area, assessments, surgical positioning, and Family Waiting Area. Written post-operative instructions were given to the patient regarding post-op activity, pain control, symptoms to report. Post-operative instructions provided and reviewed with patient/family: ACTIVITY - No heavy lifting (>5-10 lbs), no pushing/pulling, OK to climb stairs DRIVING - No driving while taking prescription pain medication, or within 24 hours of anesthesia, OK to ride in a car. DIET - Advance diet as tolerated and as ordered by MD, drink 8 glasses of water a day, eat a diet high in protein and fiber unless otherwise directed by MD. CATHETER - Will be inserted during surgery, you may go home with a catheter. If you go home with a catheter you will have to come back to the office for a voiding trial, UTI symptoms reviewed and patient instructed to notify MD of any of these symptoms. INCISION CARE - Keep incision clean and dry, johnny to be removed 7-10 days after surgery, steristrips do not need to be removed by MD BATHING - OK to shower after surgery unless otherwise directed by MD, no tub baths. PAIN MEDICATION - IV pain medication after surgery, IV FARM CONTRACTOR if ordered by MD, discharged home with a prescription for PO pain medication, pain management after surgery, side effects of pain medication (including constipation, dizziness, drowsiness, and medication interactions). DVT PROPHYLAXIS - Early ambulation, SCDs, injectable anticoagulants (heparin, lovenox, etc) RESPIRATORY - Incentive spirometer, coughing/deep breathing exercises, ambulation. RETURN TO WORK - As directed by physician, please send any FMLA papers to physician's escrow secretary. SYMPTOMS TO NOTIFY MD - Fever, chills, nausea, vomiting, increased or severe pain, heavy bleeding, foul smelling drainage, pain or swelling in extremities. URGENT SYMPTOMS - Call 911 or go to ER if any shortness of breath, difficulty breathing, or chest pain. HOW TO CONTACT PHYSICIAN - Physician's office phone number given to patient, if after hours patient instructed to call boarding machine operator and ask for the doctor cannon pinion adjuster. Patient and family have phone number to call 24 hours/day. Patient Evaluation: Verbalizes understanding Patient and/or family express understanding of upcoming surgery and the operative process. Questions answered. Follow Up Plan: Follow up as needed Supplemental Material Given: Pre-operative teaching packet provided to the patient: INPATIENT/OUTPATIENT printed instructions; Post-operative instruction sheet, bowel prep instruction sheet For questions contact: Dr. Jason Will's office at [phone] Instructed By Amarilis Oh RN LVM for patient to francia back to this office for pre op instructions. Will await return call. Patient did call back and LVM. A return call was made to the patient and LVM to call back to this office. Will await return call. documented in this encounter [facility] 02-11-2024 Telephone encounter Note LVM for patient to francia back to this office for pre op instructions. Will await return call. Patient did call back and LVM. A return call was made to the patient and LVM to call back to this office. Will await return call. [facility] 02-07-2024 Telephone encounter Note Please place labs for appt on 02/11 if needed. Kiara Daly MA [facility] 02-07-[address] labs for appt on 02/11 if needed. Kiara Daly MA documented in this encounter [facility] 01-29-2024 Telephone encounter Note Hi Dr. Dasilva, Will is scheduled for cystourethroscopy 02/18/2024. He is under your care for his history of bladder cancer including anemia. Please review 01/28/2024 CBC hgb/hct 9/28.5% , platelets 188 Requesting Optimization for above planned procedure from hematologic perspective. Bridget Desai APRN.CNP [facility] 01-29-2024 Miscellaneous Notes Nj Javi Duncan is scheduled for cystourethroscopy 02/18/2024. He is under your care for his history of bladder cancer including anemia. Please review 01/28/2024 CBC hgb/hct 9/28.5% , platelets 188 Requesting Optimization for above planned procedure from hematologic perspective. Bridget Desai APRN.CNP [facility] documented in this encounter [facility] 01-28-2024 Instructions Bridget Desai APRN.CNP - 01/28/2024 2:35 PM EDT PATIENT PREOPERATIVE INSTRUCTIONS Jason Will MD has scheduled you for your procedure at this surgery center: [facility]: [phone] --[id number] [address]. Please check in on the 1st floor at registration desk 6. Please read below carefully for your personalized instructions. Dietary Restrictions: - No solid food after midnight. - You may have 12 ounces of clear liquids (water, clear juices such as apple juice or gatorade, carbonated beverages, clear tea, black coffee, jello) until 2 hours before scheduled arrival at facility. Medications: Unless instructed differently below, stay on all of your prescription medications until your surgery. Approved medications to take the morning of surgery with a sip of water: NONE DO NOT TAKE YOUR RAMIPRIL (ALTACE) THE NIGHT BEFORE OR MORNING OF SURGERY If you start any new medications after today's visit, please contact the surgeon's office. Blood Thinning Medications: - Stop NSAIDS (Ibuprofen, Advil, Aleve, Motrin, Celebrex, Mobic, etc.) 7 days before surgery, as directed by your surgeon. - Stop Aspirin 7 days before surgery, as directed by your surgeon. - Stop Vitamin E, ALL multi-vitamins, herbals and dietary supplements 7 days before surgery. - You may take Tylenol (Acetaminophen) or any of your pain medications that do not contain aspirin or NSAIDS as needed. Important Reminders: - Candy, mints, and tobacco products are NOT permitted the morning of surgery. - Hearing aids, dentures and glasses may be worn the morning of surgery. - NO jewelry, body piercings, makeup, hairpins or contacts are to be worn the day of surgery. If you develop symptoms such as a fever, cold, or flu, or have other changes to your health within TWO DAYS of scheduled surgery or the morning of surgery, please contact the surgery center above. Personal Belongings: -Please have photo ID and insurance cards. -If you do not have a copy of advance directives on file with us, please bring a copy with you on the day of surgery. - Leave ALL valuables and money at home or with family members. For Outpatient Procedures: - YOU MUST HAVE A RESPONSIBLE DRAFTER STRUCTURAL TAKE YOU HOME. A CELLAR SUPERVISOR OR HARDWARE DESIGN ENGINEER CANNOT BE MADE A RESPONSIBLE DRAFTER STRUCTURAL. - We recommend that a responsible person stays with you overnight to take care of you. - You cannot stay in a hotel alone after outpatient surgery. You will not be permitted to have your surgery, if you do not have someone to take care of you. Arrival Time for Surgery: - The Surgery Center or hospital where you are having surgery will call the afternoon before surgery (or Sunday for Sunday surgery) with a scheduled arrival time. - If you have not heard by 4 pm, please contact the surgery center above. Please be aware that emergency situations arise, which may delay or change your surgical time. If this happens, we will notify you as soon as possible and regret any inconvenience. If you already have an Advance Directive, please fax a copy to [phone] or email to for it to be added to your chart. If you do not have an Advance Directive, you can find the appropriate form and more information at [email or web address]. We recommend that you complete the Advance Directive form found on the website and bring it with you the day of your surgery. It can be witnessed and scanned into your chart that day. documented in this encounter [facility] 01-28-2024 History and physical note Images from the original note were not included. [facility] HISTORY AND PHYSICAL EXAMINATION SERVICE DATE: 01/28/2024 SERVICE TIME: 2:25 PM PRIMARY CARE PHYSICIAN: Jose J Donaldson Jr, DO Assessment Patient has the following medical conditions which may affect lina-operative course: HLD (hyperlipidemia) Assessment: Managed with Statin , Follows with PCP HTN (hypertension) Assessment: Stable with med, follows with PCP. Date: BP: 01/28/2024 128/68 01/15/2024 134/63 Neurogenic bladder Assessment: able to urinate some , performs ISC 4-5 times/day. 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 Tripp Dasilva, Last office visit 01/08/2024 Has completed chemotherapy updated CBC Green Activity Status Index: METS: Walk indoors, such as around the house (1.75 METs) Do light work around the house, such as dusting or washing dishes (2.70 METs) Take care of self; that is eating, dressing, bathing, using the toilet (2.75 METs) Walk a block or two on level ground (2.75 METs) Do moderate work around the house, such as vacuuming, sweeping floors, or carrying in groceries (3.50 METs) Climb a flight of stairs or walk up a hill (5.50 METs) DASI Score: 18.95 Patient denies any chest pain or undue shortness of breath with the above physical activity. Clinical Frailty Scale: 3. Well, with treated comorbid disease STOP-Bang Score: Snores loudly Has or is being treated for high blood pressure Patient over 50 years old Male patient Denies feeling tired, fatigued, or sleepy during the daytime Has not been observed to stop breathing or choking/gasping during sleep BMI less than or equal to 35 kg/m^2 Does not have a large neck STOP-Bang Score: 4 ANESTHESIA FINDINGS: Intubation History: No history of difficult intubation Significant Anesthesia Considerations: none Airway History: No history of difficult airway I - PHYSICAL EVALUATION AIRWAY Patient intubated: No. Mallampati: II. TM distance: >3 FB. Neck ROM: full ROM without neurological symptoms. Mouth opening: adequate. Short neck: no. Thick neck: no Polk present: no (MUSTACHE) Lip Bite Test: II Microretrognathia/Micronagthia/Re cessed Chin: No DENTAL Dental findings: teeth intact. II - ANESTHESIA PLAN Anesthetic plan additional comments: *PACC/TCI - anesthesia choice. Beta Koko Monitoring Plan Post Procedure Analgesic Plan Prepared for Surgery: optimally prepared for surgery, pending [see comment]. RESULTS CONSULTS: Planned Anesthetic: anesthesia choice The Following Tests/Procedures Have Been Initiated: Orders Placed This Encounter Complete Blood Count Standing Status: Future Standing Expiration Date: 04/28/2024 psyllium seed, with sugar, (METAMUCIL, SUGAR, ORAL) Sig: Take by mouth. , EKG not indicated per [facility] protocol REASON FOR VISIT: Jolly Sierra is a 78 year old male who is scheduled for Procedure(s): CYSTOURETHROSCOPY W/FULGURATION &/OR RESECTION MEDIUM BLADDER TUMOR(S) 2.0 - 5.0 CM W/SALINE BIPOLAR (N/A) at the request of Dr. Jason Will for consultation. My final recommendation will be communicated back to the requesting physician by way of shared medical record or letter. Subjective COVID-19 Immunization Status Overdue - Covid-19 Vaccine () Overdue since 01/06/2024 02/19/2023 Imm Admin: COVID-19 vaccine, age 12+ yr, season (Cellay) 02/01/2022 Imm Admin: COVID-19 vaccine, age 12+ yr, bivalent (Cellay) 08/22/2021 Imm Admin: COVID-19 original vaccine, age 12+ yr, monovalent (Cellay - REYES TOP) Only the first 3 history entries have been loaded, but more history exists. 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 Neurogenic bladder, able to urinate some , performs ISC 4-5 times/day. He completed Keflex ATB TID treatment for UTI 01/27/2024, per Surgeon. He currently denies pain, dysuria or hematuria. REVIEW OF SYSTEMS: General: No weight loss, malaise or fevers. Neurological: No history of TIA's, stroke, EXPLOSION WELDER tumor, impaired sensorium, hemiplegia, paraplegia or quadraplegia. No neurological symptoms or problems. Respiratory: No history of current cough or dyspnea, or pneumonia in the past 6 weeks. No history of respiratory/pulmonary symptoms or problems. Cardiovascular: Positive for: hyperlipidemia and hypertension Negative for: CAD, chest pain, CHF, DVT/PE and murmur/valvular heart disease. GI: No history of GI symptoms or problems. No history of esophageal varices, recent ascites, or ETOH greater than 2 drinks per day. : See HPI. Endocrine: No history of diabetes. Has not taken steroids within the past 30 days. No history of endocrinological symptoms or problems. Hematology: Positive for: anemia and thrombocytopenia. Negative for: bruises/bleeds easily. Oncology: See HPI. Psych: No history of psychiatric symptoms or problems. Musculoskeletal: Positive for: joint pain. Skin: Negative for lesions, rash and itching. PAST MEDICAL HISTORY Diagnosis Date HLD (hyperlipidemia) HTN (hypertension) Neurogenic bladder PAST SURGICAL HISTORY Procedure Laterality Date CYSTOSCOPY PAST SURGICAL HISTORY OF 2006 bladder surgery PAST SURGICAL HISTORY OF Robotic Laproscopic Cystoplasty bladder augmentation with stent FAMILY HISTORY Problem Relation Age of Onset Heart disease Father Social History Tobacco Use Smoking status: Never Passive exposure: Never Smokeless tobacco: Never Vaping Use Vaping status: Never Used Substance Use Topics Alcohol use: Not Currently Drug use: Never Prior to Admission medications as of 01/28/24 1434 Medication Sig Last Dose Taking psyllium seed, with sugar, (METAMUCIL, SUGAR, ORAL) Take by mouth. Taking Yes ondansetron (ZOFRAN) 8 mg tablet Take 1 tablet by mouth every 8 hours as needed for nausea/vomiting. Taking Yes prochlorperazine (COMPAZINE) 10 mg tablet Take 1 tablet by mouth every 6 hours as needed. Taking Yes ramipril (ALTACE) 10 mg capsule Take 10 mg by mouth once daily. Taking Yes No medication comments found. ALLERGIES No Known Allergies Objective PHYSICAL EXAM: General: alert and oriented (x 3) and healthy appearance. Pertinent negatives noted - not distressed. Skin: normal color, no rash or lesions. HEENT: EOM intact, pupils equal round and pupils reactive to light. Pertinent negatives noted - no carotid bruit. Cardiovascular: regular rate and rhythm, normal S1 and S2, no rub, murmurs, or gallop. Pulse characterized as regular. Respiratory: normal breath sounds, no wheezes or crackles. No chest wall deformity or tenderness. Abdomen: bowel sounds present and soft. Pertinent negatives noted - not tender. Extremities: no deformity, no edema or tenderness, no joint swelling or clubbing. Neurological: normal cognition and motor skills. Gait normal. No weakness or sensory deficit. PAIN ASSESSMENT: VITALS: BP 128/68 Pulse 83 Temp (Src) 97.3 (Temporal) Resp 16 Ht 5' 10 (1.78m) Wt 189 lb 2.5 oz (85.8kg) SpO2 100% BMI 27.14 kg/(m^2). Diagnostic tests reviewed for today's visit: Lab Value Units Date High Low HB 8.9 g/dL 01/15/2024 17.0 13.0 HCT 26.6 % 01/15/2024 51.0 39.0 WBC 4.31 k/uL 01/15/2024 11.00 3.70 PLT 91 k/uL 01/15/2024 400 150 NA 141 mmol/L 01/15/2024 144 136 K 3.9 mmol/L 01/15/2024 5.1 3.7 GLUC 178 mg/dL 01/15/2024 99 74 BUN 28 mg/dL 01/15/2024 24 9 CREAT 1.24 mg/dL 01/15/2024 1.22 0.73 PTSEC 10.8 sec 01/15/2024 13.0 9.7 INR 1.0 no uni* 01/15/2024 1.3 0.9 APTT 27.3 sec 01/15/2024 32.4 23.0 ALT 18 U/L 01/15/2024 54 10 AST 17 U/L 01/15/2024 40 14 TBILI 0.2 mg/dL 01/15/2024 1.3 0.2 TSH No results within date range. Lab Value Units Date High Low HCGQT No results within date range. UHCG No results within date range. HCG, BODY* No results within date range. Lab Value Units Date High Low ABORHD No results within date range. ABSCREEN No results within date range. No results found for: HBA1C Recent Results (from the past 8760 hour(s)) ECG COMPLETE Collection Time: 08/28/23 12:10 PM Result Value Ventricular Rate 59 Atrial Rate 59 P-R Interval 218 QRS Duration 98 QT Interval 404 QTC Calculation (Bazett) 399 Calculated P [place] 43 Calculated R [place] 63 Calculated T [place] 54 Impression SINUS BRADYCARDIA WITH SINUS ARRHYTHMIA WITH 1ST DEGREE AV BLOCK OTHERWISE NORMAL ECG Instructions Given to Patient: Instructions located in the after visit summary. Patient given verbal and written preop instructions and voices comprehension and compliance. SIGNATURE: Bridget Desai APRN.CNP PATIENT NAME: Jolly Sierra DATE: 01/28/2024 TIME: 2:25 PM [facility] 01-28-2024 History and physical note Images from the original note were not included. [facility] HISTORY AND PHYSICAL EXAMINATION SERVICE DATE: 01/28/2024 SERVICE TIME: 2:25 PM PRIMARY CARE PHYSICIAN: Jose J Donaldson Jr, DO Assessment Patient has the following medical conditions which may affect lina-operative course: HLD (hyperlipidemia) Assessment: Managed with Statin , Follows with PCP HTN (hypertension) Assessment: Stable with med, follows with PCP. Date: BP: 01/28/2024 128/68 01/15/2024 134/63 Neurogenic bladder Assessment: able to urinate some , performs ISC 4-5 times/day. 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 Tripp Dasilva, Last office visit 01/08/2024 Has completed chemotherapy updated CBC Green Activity Status Index: METS: Walk indoors, such as around the house (1.75 METs) Do light work around the house, such as dusting or washing dishes (2.70 METs) Take care of self; that is eating, dressing, bathing, using the toilet (2.75 METs) Walk a block or two on level ground (2.75 METs) Do moderate work around the house, such as vacuuming, sweeping floors, or carrying in groceries (3.50 METs) Climb a flight of stairs or walk up a hill (5.50 METs) DASI Score: 18.95 Patient denies any chest pain or undue shortness of breath with the above physical activity. Clinical Frailty Scale: 3. Well, with treated comorbid disease STOP-Bang Score: Snores loudly Has or is being treated for high blood pressure Patient over 50 years old Male patient Denies feeling tired, fatigued, or sleepy during the daytime Has not been observed to stop breathing or choking/gasping during sleep BMI less than or equal to 35 kg/m^2 Does not have a large neck STOP-Bang Score: 4 ANESTHESIA FINDINGS: Intubation History: No history of difficult intubation Significant Anesthesia Considerations: none Airway History: No history of difficult airway I - PHYSICAL EVALUATION AIRWAY Patient intubated: No. Mallampati: II. TM distance: >3 FB. Neck ROM: full ROM without neurological symptoms. Mouth opening: adequate. Short neck: no. Thick neck: no [place] present: no (MUSTACHE) Lip Bite Test: II Microretrognathia/Micronagthia/Re cessed Chin: No DENTAL Dental findings: teeth intact. II - ANESTHESIA PLAN Anesthetic plan additional comments: *PACC/TCI - anesthesia choice. Beta Koko Monitoring Plan Post Procedure Analgesic Plan Prepared for Surgery: optimally prepared for surgery, pending [see comment]. RESULTS CONSULTS: Planned Anesthetic: anesthesia choice The Following Tests/Procedures Have Been Initiated: Orders Placed This Encounter Complete Blood Count Standing Status: Future Standing Expiration Date: 04/28/2024 psyllium seed, with sugar, (METAMUCIL, SUGAR, ORAL) Sig: Take by mouth. , EKG not indicated per PACC protocol REASON FOR VISIT: Jolly Sierra is a 78 year old male who is scheduled for Procedure(s): CYSTOURETHROSCOPY W/FULGURATION &/OR RESECTION MEDIUM BLADDER TUMOR(S) 2.0 - 5.0 CM W/SALINE BIPOLAR (N/A) at the request of Dr. Jason Will for consultation. My final recommendation will be communicated back to the requesting physician by way of shared medical record or letter. Subjective COVID-19 Immunization Status Overdue - Covid-19 Vaccine ( season) Overdue since 01/06/2024 02/19/2023 Imm Admin: COVID-19 vaccine, age 12+ yr, 2022- season (Cellay) 02/01/2022 Imm Admin: COVID-19 vaccine, age 12+ yr, bivalent (Cellay) 08/22/2021 Imm Admin: COVID-19 original vaccine, age 12+ yr, monovalent (Cell[employer] - REYES TOP) Only the first 3 history entries have been loaded, but more history exists. 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 Neurogenic bladder, able to urinate some , performs ISC 4-5 times/day. He completed Keflex ATB TID treatment for UTI 01/27/2024, per Surgeon. He currently denies pain, dysuria or hematuria. REVIEW OF SYSTEMS: General: No weight loss, malaise or fevers. Neurological: No history of TIA's, stroke, EXPLOSION WELDER tumor, impaired sensorium, hemiplegia, paraplegia or quadraplegia. No neurological symptoms or problems. Respiratory: No history of current cough or dyspnea, or pneumonia in the past 6 weeks. No history of respiratory/pulmonary symptoms or problems. Cardiovascular: Positive for: hyperlipidemia and hypertension Negative for: CAD, chest pain, CHF, DVT/PE and murmur/valvular heart disease. GI: No history of GI symptoms or problems. No history of esophageal varices, recent ascites, or ETOH greater than 2 drinks per day. : See HPI. Endocrine: No history of diabetes. Has not taken steroids within the past 30 days. No history of endocrinological symptoms or problems. Hematology: Positive for: anemia and thrombocytopenia. Negative for: bruises/bleeds easily. Oncology: See HPI. Psych: No history of psychiatric symptoms or problems. Musculoskeletal: Positive for: joint pain. Skin: Negative for lesions, rash and itching. PAST MEDICAL HISTORY Diagnosis Date HLD (hyperlipidemia) HTN (hypertension) Neurogenic bladder PAST SURGICAL HISTORY Procedure Laterality Date CYSTOSCOPY PAST SURGICAL HISTORY OF 2006 bladder surgery PAST SURGICAL HISTORY OF Robotic Laproscopic Cystoplasty bladder augmentation with stent FAMILY HISTORY Problem Relation Age of Onset Heart disease Father Social History Tobacco Use Smoking status: Never Passive exposure: Never Smokeless tobacco: Never Vaping Use Vaping status: Never Used Substance Use Topics Alcohol use: Not Currently Drug use: Never Prior to Admission medications as of 01/28/24 1434 Medication Sig Last Dose Taking psyllium seed, with sugar, (METAMUCIL, SUGAR, ORAL) Take by mouth. Taking Yes ondansetron (ZOFRAN) 8 mg tablet Take 1 tablet by mouth every 8 hours as needed for nausea/vomiting. Taking Yes prochlorperazine (COMPAZINE) 10 mg tablet Take 1 tablet by mouth every 6 hours as needed. Taking Yes ramipril (ALTACE) 10 mg capsule Take 10 mg by mouth once daily. Taking Yes No medication comments found. ALLERGIES No Known Allergies Objective PHYSICAL EXAM: General: alert and oriented (x 3) and healthy appearance. Pertinent negatives noted - not distressed. Skin: normal color, no rash or lesions. HEENT: EOM intact, pupils equal round and pupils reactive to light. Pertinent negatives noted - no carotid bruit. Cardiovascular: regular rate and rhythm, normal S1 and S2, no rub, murmurs, or gallop. Pulse characterized as regular. Respiratory: normal breath sounds, no wheezes or crackles. No chest wall deformity or tenderness. Abdomen: bowel sounds present and soft. Pertinent negatives noted - not tender. Extremities: no deformity, no edema or tenderness, no joint swelling or clubbing. Neurological: normal cognition and motor skills. Gait normal. No weakness or sensory deficit. PAIN ASSESSMENT: VITALS: BP 128/68 Pulse 83 Temp (Src) 97.3 (Temporal) Resp 16 Ht 5' 10 (1.78m) Wt 189 lb 2.5 oz (85.8kg) SpO2 100% BMI 27.14 kg/(m^2). Diagnostic tests reviewed for today's visit: Lab Value Units Date High Low HB 8.9 g/dL 01/15/2024 17.0 13.0 HCT 26.6 % 01/15/2024 51.0 39.0 WBC 4.31 k/uL 01/15/2024 11.00 3.70 PLT 91 k/uL 01/15/2024 400 150 NA 141 mmol/L 01/15/2024 144 136 K 3.9 mmol/L 01/15/2024 5.1 3.7 GLUC 178 mg/dL 01/15/2024 99 74 BUN 28 mg/dL 01/15/2024 24 9 CREAT 1.24 mg/dL 01/15/2024 1.22 0.73 PTSEC 10.8 sec 01/15/2024 13.0 9.7 INR 1.0 no uni* 01/15/2024 1.3 0.9 APTT 27.3 sec 01/15/2024 32.4 23.0 ALT 18 U/L 01/15/2024 54 10 AST 17 U/L 01/15/2024 40 14 TBILI 0.2 mg/dL 01/15/2024 1.3 0.2 TSH No results within date range. Lab Value Units Date High Low HCGQT No results within date range. UHCG No results within date range. HCG, BODY* No results within date range. Lab Value Units Date High Low ABORHD No results within date range. ABSCREEN No results within date range. No results found for: HBA1C Recent Results (from the past 8760 hour(s)) ECG COMPLETE Collection Time: 08/28/23 12:10 PM Result Value Ventricular Rate 59 Atrial Rate 59 P-R Interval 218 QRS Duration 98 QT Interval 404 QTC Calculation (Bazett) 399 Calculated P [place] 43 Calculated R [place] 63 Calculated T [place] 54 Impression SINUS BRADYCARDIA WITH SINUS ARRHYTHMIA WITH 1ST DEGREE AV BLOCK OTHERWISE NORMAL ECG Instructions Given to Patient: Instructions located in the after visit summary. Patient given verbal and written preop instructions and voices comprehension and compliance. SIGNATURE: Bridget Desai APRN.CNP PATIENT NAME: Jolly Sierra DATE: 01/28/2024 TIME: 2:25 PM documented in this encounter [facility] 01-07-2024 Note HNO ID: [id number] Author: FAISAL DASILVA MD Service: ? Author Type: Physician Type: Progress Notes Filed: 01/08/2024 20:36 Note Text: PATIENT NAME: Jolly Sierra DATE: 01/08/2024 PRIMARY CARE PHYSICIAN: Jose J Donaldson Jr, DO OTHER PHYSICIANS: Dr. Jason Will, Dr. Antonio Gary Portions of this encounter note have been copied from the note from 12/24/2023 and has been updated where appropriate, and reflect my current medical decision making from today. CC: This is a 78 year old male with recently diagnosed bladder cancer, seen for scheduled follow-up. INTERM HISTORY: At the patient's last visit here he was not feeling well, and labs revealed slight increased BUN/creatinine. He received gemcitabine as scheduled, but we elected to hold cisplatin. Since then he has felt somewhat better. Energy and appetite back to normal. Still mild leg swelling, but not severe. MEDICATIONS: Current Outpatient Medications Medication Sig doxycycline monohydrate 100 mg tablet nitrofurantoin monohydrate and macrocrystal (MACROBID) 100 mg capsule ferrous sulfate (IRON) 325 mg (65 mg iron) tablet Take 325 mg by mouth. ondansetron (ZOFRAN) 8 mg tablet Take 1 tablet by mouth every 8 hours as needed for nausea/vomiting. prochlorperazine (COMPAZINE) 10 mg tablet Take 1 tablet by mouth every 6 hours as needed. ramipril (ALTACE) 10 mg capsule Take 10 mg by mouth once daily. No current facility-administered medications for this visit. ALLERGIES: ALLERGIES No Known Allergies PAST MEDICAL HISTORY: PAST MEDICAL HISTORY No date: HLD (hyperlipidemia) No date: HTN (hypertension) No date: Neurogenic bladder PAST SURGICAL HISTORY: PAST SURGICAL HISTORY No date: CYSTOSCOPY 2006: PAST SURGICAL HISTORY OF Comment: bladder surgery No date: PAST SURGICAL HISTORY OF Comment: Robotic Laproscopic Cystoplasty bladder augmentation with stent FAMILY HISTORY: FAMILY HISTORY Problem Relation Age of Onset Heart disease Father SOCIAL HISTORY: Social History Tobacco Use Smoking status: Never Passive exposure: Never Smokeless tobacco: Never Vaping Use Vaping status: Never Used Substance Use Topics Alcohol use: Not Currently Drug use: Never COMPLETE REVIEW OF SYSTEMS: CONSTITUTION: Negative for pain, fatigue, weight loss, or appetite loss. EENT: Negative for mouth soreness, antibiotics use, epistaxis, visual problems, neck or facial swelling, fever/chills, bleeding gums, or hearing loss. CV: Negative for edema, calf swelling, palpitations, or chest pain. RESPIRATORY: Negative for cough, SOB, hemoptysis, or wheezing. GI: Negative for nausea/vomiting, heartburn, vomiting blood, dysphasia, diarrhea, blood in stool, constipation, early satiety, PICA, vegetarian, poor nutrition, abdominal fullness, or abdominal pain. NEUROLOGICAL: Negative for numbness/tingling, dizziness, gait disturbance, headache, speech disturbance, tremor, hemiparesis/sensory loss, or change in mental status. MUSCULOSKELETAL: Negative for joint pain, joint swelling, or proximal muscle weakness. SKIN: Negative for hair loss, bruising, nail changes, rash, itching, pallor, or jaundice. ENDO/URO: Negative for hot flashes, cold or heat intolerance, urinary frequency, urinary hesitancy, menorrhagia, or hematuria. PSYCH: Negative for anxiety, depression, or other. PHYSICAL EXAM: BP 139/68 Pulse 83 Temp 36.5 ?C (97.7 ?F) (Temporal) Resp 16 Ht 174.5 cm (5' 8.7 ) Wt 85.3 kg (188 lb 0.8 oz) SpO2 98% BMI 28.01 kg/m? General: Alert and oriented, no distress, pleasant and cooperative. Heart: Regular, normal S1 and S2, no murmurs, rubs, or gallops Lungs: Clear to auscultation bilaterally Abdomen: Benign Extremities: Feet/ankles without edema, right medial antecub with small area of swelling, no redness or warmth PATHOLOGY: 09/06/2023 Robotic bladder diverticulectomy and right pelvic lymph node dissection. A. Urinary bladder, neck of diverticulum, excision: - Benign bladder mucosa and muscularis propria. B. Lymph nodes, right pelvic, regional resection: - Two lymph nodes, negative for malignancy (0/2). C. 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 - Margins are negative for tumor. LABS: Hemoglobin (g/dL) Date Value 01/08/2024 9.9 Hematocrit (%) Date Value 01/08/2024 29.9 WBC (k/uL) Date Value 01/08/2024 8.24 Platelet Count (k/uL) Date Value 01/08/2024 222 RADIOLOGY/OTHER STUDIES: 10/16/2023 PET scan IMPRESSION: HEAD/NECK: * No FDG avid neoplastic process. * Diffusely enlarged thyroid demonstrating heterogeneous FDG avidity with multiple large thyroid nodules measuring up to 2.9 cm. Correlate with serology and/or thyroid ultrasound for TI-RADS ultrasound criteria evaluation and decision support regarding (more content not included)... [facility] 01-07-2024 History of Present illness Narrative PATIENT NAME: Jolly Sierra DATE: 01/08/2024 PRIMARY CARE PHYSICIAN: Jose J Donaldson Jr, DO OTHER PHYSICIANS: Dr. Jason Will, Dr. Antonio Gary Portions of this encounter note have been copied from the note from 12/24/2023 and has been updated where appropriate, and reflect my current medical decision making from today. CC: This is a 78 year old male with recently diagnosed bladder cancer, seen for scheduled follow-up. INTERM HISTORY: At the patient's last visit here he was not feeling well, and labs revealed slight increased BUN/creatinine. He received gemcitabine as scheduled, but we elected to hold cisplatin. Since then he has felt somewhat better. Energy and appetite back to normal. Still mild leg swelling, but not severe. MEDICATIONS: Current Outpatient Medications Medication Sig doxycycline monohydrate 100 mg tablet nitrofurantoin monohydrate and macrocrystal (MACROBID) 100 mg capsule ferrous sulfate (IRON) 325 mg (65 mg iron) tablet Take 325 mg by mouth. ondansetron (ZOFRAN) 8 mg tablet Take 1 tablet by mouth every 8 hours as needed for nausea/vomiting. prochlorperazine (COMPAZINE) 10 mg tablet Take 1 tablet by mouth every 6 hours as needed. ramipril (ALTACE) 10 mg capsule Take 10 mg by mouth once daily. No current facility-administered medications for this visit. ALLERGIES: ALLERGIES No Known Allergies PAST MEDICAL HISTORY: PAST MEDICAL HISTORY No date: HLD (hyperlipidemia) No date: HTN (hypertension) No date: Neurogenic bladder PAST SURGICAL HISTORY: PAST SURGICAL HISTORY No date: CYSTOSCOPY 2006: PAST SURGICAL HISTORY OF Comment: bladder surgery No date: PAST SURGICAL HISTORY OF Comment: Robotic Laproscopic Cystoplasty bladder augmentation with stent FAMILY HISTORY: FAMILY HISTORY Problem Relation Age of Onset Heart disease Father SOCIAL HISTORY: Social History Tobacco Use Smoking status: Never Passive exposure: Never Smokeless tobacco: Never Vaping Use Vaping status: Never Used Substance Use Topics Alcohol use: Not Currently Drug use: Never COMPLETE REVIEW OF SYSTEMS: CONSTITUTION: Negative for pain, fatigue, weight loss, or appetite loss. EENT: Negative for mouth soreness, antibiotics use, epistaxis, visual problems, neck or facial swelling, fever/chills, bleeding gums, or hearing loss. CV: Negative for edema, calf swelling, palpitations, or chest pain. RESPIRATORY: Negative for cough, SOB, hemoptysis, or wheezing. GI: Negative for nausea/vomiting, heartburn, vomiting blood, dysphasia, diarrhea, blood in stool, constipation, early satiety, PICA, vegetarian, poor nutrition, abdominal fullness, or abdominal pain. NEUROLOGICAL: Negative for numbness/tingling, dizziness, gait disturbance, headache, speech disturbance, tremor, hemiparesis/sensory loss, or change in mental status. MUSCULOSKELETAL: Negative for joint pain, joint swelling, or proximal muscle weakness. SKIN: Negative for hair loss, bruising, nail changes, rash, itching, pallor, or jaundice. ENDO/URO: Negative for hot flashes, cold or heat intolerance, urinary frequency, urinary hesitancy, menorrhagia, or hematuria. PSYCH: Negative for anxiety, depression, or other. PHYSICAL EXAM: BP 139/68 Pulse 83 Temp 36.5 C (97.7 F) (Temporal) Resp 16 Ht 174.5 cm (5' 8.7 ) Wt 85.3 kg (188 lb 0.8 oz) SpO2 98% BMI 28.01 kg/m General: Alert and oriented, no distress, pleasant and cooperative. Heart: Regular, normal S1 and S2, no murmurs, rubs, or gallops Lungs: Clear to auscultation bilaterally Abdomen: Benign Extremities: Feet/ankles without edema, right medial antecub with small area of swelling, no redness or warmth PATHOLOGY: 09/06/2023 Robotic bladder diverticulectomy and right pelvic lymph node dissection. A. Urinary bladder, neck of diverticulum, excision: - Benign bladder mucosa and muscularis propria. B. Lymph nodes, right pelvic, regional resection: - Two lymph nodes, negative for malignancy (0/2). C. 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 - Margins are negative for tumor. LABS: Hemoglobin (g/dL) Date Value 01/08/2024 9.9 Hematocrit (%) Date Value 01/08/2024 29.9 WBC (k/uL) Date Value 01/08/2024 8.24 Platelet Count (k/uL) Date Value 01/08/2024 222 RADIOLOGY/OTHER STUDIES: 10/16/2023 PET scan IMPRESSION: HEAD/NECK: * No FDG avid neoplastic process. * Diffusely enlarged thyroid demonstrating heterogeneous FDG avidity with multiple large thyroid nodules measuring up to 2.9 cm. Correlate with serology and/or thyroid ultrasound for TI-RADS ultrasound criteria evaluation and decision support regarding observation versus tissue sampling. ? CHEST: * No FDG avid neoplastic process. ABDOMEN/PELVIS: * Prior RIGHT urinary bladder diverticulectomy with residual bladder wall thickening in the operative bed and extending along the urinary bladder fundus. Degree of FDG avidity is poorly assessed due to adjacent urinary bladder luminal FDG avidity. Continued attention on follow-up is recommended * No hypermetabolic abdominopelvic lymphadenopathy. * Nonspecific bilateral adrenal gland uptake, possibly physiologic or secondary to hyperplasia. Attention on follow-up. * Mild, diffuse radiotracer uptake within the prostate without discrete focal lesion. Correlate with PSA. * Ill-defined minimally FDG avid soft tissue attenuation in the LEFT inguinal region likely representing postoperative material given reported history of prior incarcerated LEFT inguinal hernia repair. Continued attention on follow-up. MUSCULOSKELETAL: * No FDG avid neoplastic process. 09/03/2023 CT urogram IMPRESSION: 1. Large diverticulum arising from the right posterior wall of the urinary bladder. There is asymmetric wall thickening and increased enhancement along the posterior and superior aspect of the bladder diverticulum. This is highly suspicious for urothelial carcinoma and can be correlated with cystoscopy if not already performed. No metastatic disease detected in the abdomen or pelvis. No upper tract urothelial filling defects detected. ASSESSMENT/PLAN: 1. 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 The patient presented in April 2023 with gross hematuria. Initial cystoscopy 08/01/2023 revealed a large diverticulum on the right bladder floor. CT urogram 09/03/2023 confirmed a large diverticulum arising from the right posterior wall of the urinary bladder. On 09/06/2023 he underwent robotic bladder diverticulectomy plus right pelvic lymph node dissection. Pathology revealed high-grade urothelial carcinoma, greatest dimension 5 cm, with invasion of the perivesical fat (T3b). 2 resected lymph nodes were negative for metastasis. PET scan 10/16/2023 revealed no evidence of metastases. Postop recommendations were to proceed with adjuvant chemotherapy consisting of cisplatin plus gemcitabine x 4 cycles. Treatment started 11/05/2023. Due to adverse effects (malaise) and renal dysfunction cisplatin held with cycle 3-day 8. Currently back to baseline. The patient will resume chemotherapy with his previously prescribed dose of cisplatin plus gemcitabine, but due to ankle swelling we will change to an adjusted weight for dose calculations rather than measured weight. Cycle 4-day 1 today, and day 8 in 1 week. I will see him back in 5 weeks for follow-up and labs. He will then undergo repeat evaluation including cystoscopy per Dr. Will. 2. Neurogenic bladder - ICD9: 596.54, ICD10: N31.9 Acute bladder dysfunction since 2005. Previously the patient required CIC several times daily. Currently urinating without the need for catheterization. However, he is experiencing increasing urinary frequency and urgency. He will discuss with [facility] urology whether he can resume self catheterizations. 3. Hyperlipidemia - ICD9: 272.4, ICD10: E78.5 Stable on current medications, continue per PCP. 4. Primary hypertension - ICD9: 401.9, ICD10: I10 Stable on current medications, continue per PCP. 5. Abnormal thyroid Baseline PET scan 10/16/2023 revealed diffusely enlarged thyroid demonstrating heterogeneous FDG avidity with multiple large thyroid nodules measuring up to 2.9 cm. Will discuss further evaluation including thyroid ultrasound +/- referral to ENT after chemotherapy is completed. 6. Chemotherapy-induced anemia Since the start of chemotherapy the patient has developed moderate anemia. Would consider EPO if hemoglobin remains below 10. Would monitor iron stores and supplement with IV iron if indicated. Faisal Dasilva MD CC: Dr. Donaldson documented in this encounter [facility] 01-04-2024 History of Present illness Narrative HISTORY: Jolly Sierra is a 78 yr old male with a hx of HTN, UTI, BPH, neurogenic bladder, and HLD presenting for a hx of HG papillary urothelial carcinoma with squamous differentiation and macroscopic invasion of perivesical fat s/p partial cystectomy on 09/06/2023. Presenting for cystoscopy. Presented for stent removal cystoscopy on 10/05/2023, at which time the plan was to follow-up with oncology with a PET scan and to have an office cystoscopy in 3 months. Recommended self-catheterize. He did have an episode of pink urine approximately a week ago. The patient is on chemotherapy with cisplatin plus gemcitabine 2 weeks on [address] Dasilva. PET Scan 10/16/2023 IMPRESSION: HEAD/NECK: * No FDG avid neoplastic process. * Diffusely enlarged thyroid demonstrating heterogeneous FDG avidity with multiple large thyroid nodules measuring up to 2.9 cm. Correlate with serology and/or thyroid ultrasound for TI-RADS ultrasound criteria evaluation and decision support regarding observation versus tissue sampling. ? CHEST: * No FDG avid neoplastic process. ABDOMEN/PELVIS: * Prior RIGHT urinary bladder diverticulectomy with residual bladder wall thickening in the operative bed and extending along the urinary bladder fundus. Degree of FDG avidity is poorly assessed due to adjacent urinary bladder luminal FDG avidity. Continued attention on follow-up is recommended * No hypermetabolic abdominopelvic lymphadenopathy. * Nonspecific bilateral adrenal gland uptake, possibly physiologic or secondary to hyperplasia. Attention on follow-up. * Mild, diffuse radiotracer uptake within the prostate without discrete focal lesion. Correlate with PSA. * Ill-defined minimally FDG avid soft tissue attenuation in the LEFT inguinal region likely representing postoperative material given reported history of prior incarcerated LEFT inguinal hernia repair. Continued attention on follow-up. MUSCULOSKELETAL: * No FDG avid neoplastic process. Surgical Pathology (09/06/2023) FINAL DIAGNOSIS A. Urinary bladder, neck of diverticulum, excision: - Benign bladder mucosa and muscularis propria. B. Lymph nodes, right pelvic, regional resection: - Two lymph nodes, negative for malignancy (0/2). C. 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 - Margins are negative for tumor. [facility] NOTE/ UNIVERSAL PROTOCOL/ SAFETY CHECKLIST Sign In History and Physical Exam reviewed and is unchanged. Primary Diagnosis: History of bladder cancer Sign in Communication: Completed. Time Out: Immediately prior to procedure, Team confirms the correct patient, correct procedure, cystoscopy, correct site and site marking, correct position (if applicable). Sign Out: Sign out discussion: Completed. Antibiotic(s) given immediately prior to procedure: Bactrim Details of procedure: as below Cystoscopy -see below Urethra -bulbar urethral stricture approximately 16 Pashto in size Prostate: Moderate lateral lobes VN: open Urothelium: Significant trabeculation and inflammation. Area of erythema near the right ureteral orifice in the area of previous diverticulum excision. Rest of the bladder with normal urothelium. Trabeculation: Severe Inflammation: Severe Ureteral Orifices: Difficult to clearly identify the ureters Trigone: Distorted from previous surgery Preoperative diagnosis: History of bladder cancer Postoperative diagnosis: Same Procedure: Flexible cystoscopy Surgeon: Dr. Jason Will Anesthesia: Lidocaine urojet Procedure: The patient was taken to the cystoscopy suite and placed in the spine position. He was then prepped and draped in the usual manner. Lidocaine gel was placed per urethra for local anesthesia. Cystoscopy was then performed using a flexible cystoscope. Sterile technique was maintained throughout. Please refer to above for specific findings during this part of the procedure. After carefully and atraumatically inspecting the urethra, prostate, VN, bladder, and UO's, the cystoscope was removed. The patient tolerated the procedure well and there were no complications. He was take for recovery in good condition. Findings: see above Complications: None EBL: None Disposition: Cystoscopy today with some erythema possible inflammation. Clearly does not empty fully. Recommend intermittent catheterization at least twice a day. [facility] and will [facility]. We will send a cytology today. Recommend cystoscopy biopsy in the OR to rule out bladder recurrence. By signing my name below, I, Javi Zapata, attest that this documentation has been prepared under the direction and in the presence of Dr. Will. Electronically signed, Julián Mane Provider Attestation: I, Jason Will MD, personally performed the services described in this documentation. All medical record entries made by the kristaibe were at my direction and in my presence. I have reviewed the chart and discharge instructions (if applicable) and agree that the record reflects my personal performance and is accurate and complete. Dr. Jason Will MD January 04, 2024 2:08 PM documented in this encounter [facility] 01-04-2024 Note HNO ID: [id number] Author: JASON WILL MD Service: ? Author Type: Physician Type: Progress Notes Filed: 01/04/2024 14:31 Note Text: HISTORY: Jolly Sierra is a 78 yr old male with a hx of HTN, UTI, BPH, neurogenic bladder, and HLD presenting for a hx of HG papillary urothelial carcinoma with squamous differentiation and macroscopic invasion of perivesical fat s/p partial cystectomy on 09/06/2023. Presenting for cystoscopy. Presented for stent removal cystoscopy on 10/05/2023, at which time the plan was to follow-up with oncology with a PET scan and to have an office cystoscopy in 3 months. Recommended self-catheterize. He did have an episode of pink urine approximately a week ago. The patient is on chemotherapy with cisplatin plus gemcitabine 2 weeks on [address] Dasilva. PET Scan 10/16/2023 IMPRESSION: HEAD/NECK: * No FDG avid neoplastic process. * Diffusely enlarged thyroid demonstrating heterogeneous FDG avidity with multiple large thyroid nodules measuring up to 2.9 cm. Correlate with serology and/or thyroid ultrasound for TI-RADS ultrasound criteria evaluation and decision support regarding observation versus tissue sampling. ? CHEST: * No FDG avid neoplastic process. ABDOMEN/PELVIS: * Prior RIGHT urinary bladder diverticulectomy with residual bladder wall thickening in the operative bed and extending along the urinary bladder fundus. Degree of FDG avidity is poorly assessed due to adjacent urinary bladder luminal FDG avidity. Continued attention on follow-up is recommended * No hypermetabolic abdominopelvic lymphadenopathy. * Nonspecific bilateral adrenal gland uptake, possibly physiologic or secondary to hyperplasia. Attention on follow-up. * Mild, diffuse radiotracer uptake within the prostate without discrete focal lesion. Correlate with PSA. * Ill-defined minimally FDG avid soft tissue attenuation in the LEFT inguinal region likely representing postoperative material given reported history of prior incarcerated LEFT inguinal hernia repair. Continued attention on follow-up. MUSCULOSKELETAL: * No FDG avid neoplastic process. Surgical Pathology (09/06/2023) FINAL DIAGNOSIS A. Urinary bladder, neck of diverticulum, excision: - Benign bladder mucosa and muscularis propria. B. Lymph nodes, right pelvic, regional resection: - Two lymph nodes, negative for malignancy (0/2). C. 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 - Margins are negative for tumor. [facility] NOTE/ UNIVERSAL PROTOCOL/ SAFETY CHECKLIST Sign In History and Physical Exam reviewed and is unchanged. Primary Diagnosis: History of bladder cancer Sign in Communication: Completed. Time Out: Immediately prior to procedure, Team confirms the correct patient, correct procedure, cystoscopy, correct site and site marking, correct position (if applicable). Sign Out: Sign out discussion: Completed. Antibiotic(s) given immediately prior to procedure: Bactrim Details of procedure: as below Cystoscopy -see below Urethra -bulbar urethral stricture approximately 16 Pashto in size Prostate: Moderate lateral lobes VN: open Urothelium: Significant trabeculation and inflammation. Area of erythema near the right ureteral orifice in the area of previous diverticulum excision. Rest of the bladder with normal urothelium. Trabeculation: Severe Inflammation: Severe Ureteral Orifices: Difficult to clearly identify the ureters Trigone: Distorted from previous surgery Preoperative diagnosis: History of bladder cancer Postoperative diagnosis: Same Procedure: Flexible cystoscopy Surgeon: Dr. Jason Will Anesthesia: Lidocaine urojet Procedure: The patient was taken to the cystoscopy suite and placed in the spine position. He was then prepped and draped in the usual manner. Lidocaine gel was placed per urethra for local anesthesia. Cystoscopy was then performed using a flexible cystoscope. Sterile technique was maintained throughout. Please refer to above for specific findings during this part of the procedure. After carefully and atraumatically inspecting the urethra, prostate, VN, bladder, and UO's, the cystoscope was removed. The patient tolerated the procedure well and there were no complications. He was take for recovery in good condition. Findings: see above Complications: None EBL: None Disposition: Cystoscopy today with some erythema possible inflammation. Clearly does not empty fully. Recommend intermittent catheterization at least twice a day. [facility] and will need a prescription. We will send a cytology today. Recommend cystoscopy biopsy in the OR to rule out bladder recurrence. By signing my name below, I, Javi Zapata, attest that this documentation has been prepared under the directi (more content not included)... [facility] 01-04-2024 Nurse Note UNIVERSAL PROTOCOL / SAFETY CHECKLIST Procedure to be Performed: cystscopy Sign In: A Moment of CARE was completed. Personnel directly involved with the procedure wore the appropriate PPE (Personal Protective Equipment). Special equipment: cystoscope Patient/Surrogate Stated/Verified: PATIENT VERIFIED(optional for EMERGENT procedures): Patient name, Date of , Relevant allergies, and The intended procedure Time Out Communication: Intended patient and procedure match the source documents. Consent documented and matches the intended procedure. Relevant labs, photos, and/or imaging studies have been reviewed. Correct side/site marked and visible. Medications required for procedure verified. Fire risk assessed and interventions discussed. No implant(s) inserted. Sign Out: SIGN OUT (optional for EMERGENT procedures): No specimen collected. All instruments, equipment, possible retained foreign bodies accounted for. Post-procedure follow-up management communicated and Plan of Care Visit completed when applicable. Jesus Alberto Baird MA PRE PROCEDURE ASSESSMENT- Cysto Procedure Indication: Cystoscopy Latex Allergy: No Allergies reviewed and updated. Yes Pre-Procedure Vital Signs: BP: 152/85 Pulse: 71 Heart valve replacement: No Joint replacement: No Back Office UA otained: yes PROCEDURE PREP-Cysto Patient ID with two(2)identifiers verified by: Jesus Alberto Baird MA Pre-Procedure Antibiotics: Bactrim DS 160mg-800mg orally, given during visit @ 1337 , by Jesus Alberto Baird MA Patient Prep: Betadine Scrub to perineum and placement of Sterile Drape. COMPLETED Anesthetic Given:10 cc 2% Lidocaine jelly and Administered by MD - see Procedure Physician Note. Jesus Alberto Baird MA UNIVERSAL PROTOCOL / SAFETY CHECKLIST Procedure to be performed: Cystoscopy Sign in Communication: Completed Time Out: Team Confirms the Correct Patient, Correct Procedure, Correct Site and Site Marking, Correct Position (if applicable). Sign Out Discussion: Completed Jesus Alberto Baird MA POST PROCEDURE NURSE ASSESSMENT Present along with physician during procedure exam. Jesus Alberto Baird MA Instruction sheet given and reviewed and patient verbalizes understanding: yes Post Procedure Antibiotic: none Current pain intensity is 0 on a 0-10 pain scale. Jesus Alberto Baird MA AMBULATORY PATIENT EDUCATION THE FOLLOWING WAS EVALUATED Motivation To Learn: Eager Family/Significant Other Support: Unable to assess - Family not present Cognitive Ability: Alert/Oriented Method of Instruction: Individual instruction Written instruction/Handouts Verbal instruction The Following Influencing Factors Were Barriers To This Education Session: None The Following Physical Limitations Were Barriers To This Education Session: None Instruction Provided To: Patient Circulation Man Present: not applicable Discipline: Nursing Learning Topic: SURVIVAL SKILLS: Complication Prevention Symptom Management Patient Evaluation: Verbalizes understanding: Yes Supplemental Material Given: Written Material Instructed By Jesus Alberto Baird MA In Department Urology . [facility] 01-04-2024 Nurse Note UNIVERSAL PROTOCOL / SAFETY CHECKLIST Procedure to be Performed: cystscopy Sign In: A Moment of CARE was completed. Personnel directly involved with the procedure wore the appropriate PPE (Personal Protective Equipment). Special equipment: cystoscope Patient/Surrogate Stated/Verified: PATIENT VERIFIED(optional for EMERGENT procedures): Patient name, Date of , Relevant allergies, and The intended procedure Time Out Communication: Intended patient and procedure match the source documents. Consent documented and matches the intended procedure. Relevant labs, photos, and/or imaging studies have been reviewed. Correct side/site marked and visible. Medications required for procedure verified. Fire risk assessed and interventions discussed. No implant(s) inserted. Sign Out: SIGN OUT (optional for EMERGENT procedures): No specimen collected. All instruments, equipment, possible retained foreign bodies accounted for. Post-procedure follow-up management communicated and Plan of Care Visit completed when applicable. Jesus Alberto Baird MA PRE PROCEDURE ASSESSMENT- Cysto Procedure Indication: Cystoscopy Latex Allergy: No Allergies reviewed and updated. Yes Pre-Procedure Vital Signs: BP: 152/85 Pulse: 71 Heart valve replacement: No Joint replacement: No Back Office UA otained: yes PROCEDURE PREP-Cysto Patient ID with two(2)identifiers verified by: Jesus Alberto Baird MA Pre-Procedure Antibiotics: Bactrim DS 160mg-800mg orally, given during visit @ 1337 , by Jesus Alberto Baird MA Patient Prep: Betadine Scrub to perineum and placement of Sterile Drape. COMPLETED Anesthetic Given:10 cc 2% Lidocaine jelly and Administered by MD - see Procedure Physician Note. Jesus Alberto Baird MA UNIVERSAL PROTOCOL / SAFETY CHECKLIST Procedure to be performed: Cystoscopy Sign in Communication: Completed Time Out: Team Confirms the Correct Patient, Correct Procedure, Correct Site and Site Marking, Correct Position (if applicable). Sign Out Discussion: Completed Jesus Alberto Baird MA POST PROCEDURE NURSE ASSESSMENT Present along with physician during procedure exam. Jesus Alberto Baird MA Instruction sheet given and reviewed and patient verbalizes understanding: yes Post Procedure Antibiotic: none Current pain intensity is 0 on a 0-10 pain scale. Jesus Alberto Baird MA AMBULATORY PATIENT EDUCATION THE FOLLOWING WAS EVALUATED Motivation To Learn: Eager Family/Significant Other Support: Unable to assess - Family not present Cognitive Ability: Alert/Oriented Method of Instruction: Individual instruction Written instruction/Handouts Verbal instruction The Following Influencing Factors Were Barriers To This Education Session: None The Following Physical Limitations Were Barriers To This Education Session: None Instruction Provided To: Patient Circulation Man Present: not applicable Discipline: Nursing Learning Topic: SURVIVAL SKILLS: Complication Prevention Symptom Management Patient Evaluation: Verbalizes understanding: Yes Supplemental Material Given: Written Material Instructed By Jesus Alberto Baird MA In Department Urology . documented in this encounter [facility] 12-24-2023 History of Present illness Narrative [facility] notified of Mg 1.6. No new orders received. Suzanne Aragon RN documented in this encounter [facility] 12-24-2023 History of Present illness Narrative PATIENT NAME: Jolly Sierra DATE: 12/24/2023 PRIMARY CARE PHYSICIAN: Jose J Donaldson Jr, DO OTHER PHYSICIANS: Dr. Jason Will, Dr. Antonio Gary Portions of this encounter note have been copied from the note from 12/17/2023 and has been updated where appropriate, and reflect my current medical decision making from today. CC: This is a 78 year old male with recently diagnosed bladder cancer, seen for scheduled follow-up. INTERM HISTORY: The patient remains on chemotherapy with cisplatin plus gemcitabine 2 weeks on 1 week off. After his last infusion he developed increasing fatigue and ankle swelling. On chemotherapy he has not had significant nausea or vomiting. He also complains of increasing urinary urgency and frequency. Since surgery has not been able to self catheterize. No hematuria or signs of infection. MEDICATIONS: Current Outpatient Medications Medication Sig doxycycline monohydrate 100 mg tablet nitrofurantoin monohydrate and macrocrystal (MACROBID) 100 mg capsule ferrous sulfate (IRON) 325 mg (65 mg iron) tablet Take 325 mg by mouth. ondansetron (ZOFRAN) 8 mg tablet Take 1 tablet by mouth every 8 hours as needed for nausea/vomiting. prochlorperazine (COMPAZINE) 10 mg tablet Take 1 tablet by mouth every 6 hours as needed. ramipril (ALTACE) 10 mg capsule Take 10 mg by mouth once daily. No current facility-administered medications for this visit. ALLERGIES: ALLERGIES No Known Allergies PAST MEDICAL HISTORY: PAST MEDICAL HISTORY No date: HLD (hyperlipidemia) No date: HTN (hypertension) No date: Neurogenic bladder PAST SURGICAL HISTORY: PAST SURGICAL HISTORY No date: CYSTOSCOPY 2006: PAST SURGICAL HISTORY OF Comment: bladder surgery No date: PAST SURGICAL HISTORY OF Comment: Robotic Laproscopic Cystoplasty bladder augmentation with stent FAMILY HISTORY: FAMILY HISTORY Problem Relation Age of Onset Heart disease Father SOCIAL HISTORY: Social History Tobacco Use Smoking status: Never Passive exposure: Never Smokeless tobacco: Never Vaping Use Vaping status: Never Used Substance Use Topics Alcohol use: Not Currently Drug use: Never COMPLETE REVIEW OF SYSTEMS: CONSTITUTION: Negative for pain, fatigue, weight loss, or appetite loss. EENT: Negative for mouth soreness, antibiotics use, epistaxis, visual problems, neck or facial swelling, fever/chills, bleeding gums, or hearing loss. CV: Negative for edema, calf swelling, palpitations, or chest pain. RESPIRATORY: Negative for cough, SOB, hemoptysis, or wheezing. GI: Negative for nausea/vomiting, heartburn, vomiting blood, dysphasia, diarrhea, blood in stool, constipation, early satiety, PICA, vegetarian, poor nutrition, abdominal fullness, or abdominal pain. NEUROLOGICAL: Negative for numbness/tingling, dizziness, gait disturbance, headache, speech disturbance, tremor, hemiparesis/sensory loss, or change in mental status. MUSCULOSKELETAL: Negative for joint pain, joint swelling, or proximal muscle weakness. SKIN: Negative for hair loss, bruising, nail changes, rash, itching, pallor, or jaundice. ENDO/URO: Negative for hot flashes, cold or heat intolerance, urinary frequency, urinary hesitancy, menorrhagia, or hematuria. PSYCH: Negative for anxiety, depression, or other. PHYSICAL EXAM: BP 173/77 Pulse 84 Temp 36.2 C (97.2 F) (Temporal) Resp 18 Wt 85.6 kg (188 lb 11.4 oz) SpO2 97% BMI 28.11 kg/m General: Alert and oriented, no distress, pleasant and cooperative. Heart: Regular, normal S1 and S2, no murmurs, rubs, or gallops Lungs: Clear to auscultation bilaterally Abdomen: Benign Extremities: Feet/ankles without edema, right medial antecub with small area of swelling, no redness or warmth PATHOLOGY: 09/06/2023 Robotic bladder diverticulectomy and right pelvic lymph node dissection. A. Urinary bladder, neck of diverticulum, excision: - Benign bladder mucosa and muscularis propria. B. Lymph nodes, right pelvic, regional resection: - Two lymph nodes, negative for malignancy (0/2). C. 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 - Margins are negative for tumor. LABS: Hemoglobin (g/dL) Date Value 12/24/2023 9.8 Hematocrit (%) Date Value 12/24/2023 29.4 WBC (k/uL) Date Value 12/24/2023 4.04 Platelet Count (k/uL) Date Value 12/24/2023 130 RADIOLOGY/OTHER STUDIES: 10/16/2023 PET scan IMPRESSION: HEAD/NECK: * No FDG avid neoplastic process. * Diffusely enlarged thyroid demonstrating heterogeneous FDG avidity with multiple large thyroid nodules measuring up to 2.9 cm. Correlate with serology and/or thyroid ultrasound for TI-RADS ultrasound criteria evaluation and decision support regarding observation versus tissue sampling. ? CHEST: * No FDG avid neoplastic process. ABDOMEN/PELVIS: * Prior RIGHT urinary bladder diverticulectomy with residual bladder wall thickening in the operative bed and extending along the urinary bladder fundus. Degree of FDG avidity is poorly assessed due to adjacent urinary bladder luminal FDG avidity. Continued attention on follow-up is recommended * No hypermetabolic abdominopelvic lymphadenopathy. * Nonspecific bilateral adrenal gland uptake, possibly physiologic or secondary to hyperplasia. Attention on follow-up. * Mild, diffuse radiotracer uptake within the prostate without discrete focal lesion. Correlate with PSA. * Ill-defined minimally FDG avid soft tissue attenuation in the LEFT inguinal region likely representing postoperative material given reported history of prior incarcerated LEFT inguinal hernia repair. Continued attention on follow-up. MUSCULOSKELETAL: * No FDG avid neoplastic process. 09/03/2023 CT urogram IMPRESSION: 1. Large diverticulum arising from the right posterior wall of the urinary bladder. There is asymmetric wall thickening and increased enhancement along the posterior and superior aspect of the bladder diverticulum. This is highly suspicious for urothelial carcinoma and can be correlated with cystoscopy if not already performed. No metastatic disease detected in the abdomen or pelvis. No upper tract urothelial filling defects detected. ASSESSMENT/PLAN: 1. 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 The patient presented in April 2023 with gross hematuria. Initial cystoscopy 08/01/2023 revealed a large diverticulum on the right bladder floor. CT urogram 09/03/2023 confirmed a large diverticulum arising from the right posterior wall of the urinary bladder. On 09/06/2023 he underwent robotic bladder diverticulectomy plus right pelvic lymph node dissection. Pathology revealed high-grade urothelial carcinoma, greatest dimension 5 cm, with invasion of the perivesical fat (T3b). 2 resected lymph nodes were negative for metastasis. PET scan 10/16/2023 revealed no evidence of metastases. Postop recommendations were to proceed with adjuvant chemotherapy consisting of cisplatin plus gemcitabine x 4 cycles. Treatment started 11/05/2023. Currently the patient is having adverse effects of treatment (severe fatigue). After much discussion we have elected to hold cisplatin with cycle 3-day 8 today. Return in 2 weeks for follow-up and to start cycle 4. Based on labs and clinical condition we will then discuss whether to resume cisplatin. 2. Neurogenic bladder - ICD9: 596.54, ICD10: N31.9 Acute bladder dysfunction since 2005. Previously the patient required CIC several times daily. Currently urinating without the need for catheterization. However, he is experiencing increasing urinary frequency and urgency. He will discuss with [facility] urology whether he can resume self catheterizations. 3. Hyperlipidemia - ICD9: 272.4, ICD10: E78.5 Stable on current medications, continue per PCP. 4. Primary hypertension - ICD9: 401.9, ICD10: I10 Stable on current medications, continue per PCP. 5. Abnormal thyroid Baseline PET scan 10/16/2023 revealed diffusely enlarged thyroid demonstrating heterogeneous FDG avidity with multiple large thyroid nodules measuring up to 2.9 cm. Will discuss further evaluation including thyroid ultrasound +/- referral to ENT after chemotherapy is completed. 6. Chemotherapy-induced anemia Since the start of chemotherapy the patient has developed moderate anemia. Would consider EPO if hemoglobin remains below 10. Would monitor iron stores and supplement with IV iron if indicated. Faisal Dasilva MD CC: Dr. Donaldson documented in this encounter [facility] 12-18-2023 Telephone encounter Note Pt notified of his US and lab results as well a Marlee's recommendations. Verbalizes understanding. No questions noted. Donald Perez RN [facility] Work Phone: 12-18-2023 Miscellaneous Notes Pt notified of his US and lab results as well a Marlee's recommendations. Verbalizes understanding. No questions noted. Donald Perez RN Please also inform him of normal iron levels Marlee Dan PA-C Call placed to pt. No answer. Message left requesting call back. Donald Perez RN Please inform the patient that he does have a superficial clot in his arm. He needs to use warm compresses and NSAIDS if painful. Marlee Dan PA-C Report scanned. Saira: Please scan results if available. Thanks! Donald Perez RN Patient will be going today @ 5:00 pm for STAT US @ [place]. Paris Vigil documented in this encounter [facility] 12-18-2023 Telephone encounter Note Please also inform him of normal iron levels Marlee Dan PA-C [facility] Work Phone: 12-18-2023 Telephone encounter Note Call placed to pt. No answer. Message left requesting call back. Donald Perez RN [facility] 12-18-2023 Telephone encounter Note Please inform the patient that he does have a superficial clot in his arm. He needs to use warm compresses and NSAIDS if painful. Marlee Dan PA-C [facility] 12-18-2023 Telephone encounter Note Report scanned. [facility] 12-18-2023 Telephone encounter Note Saira: Please scan results if available. Thanks! Donald Perez, HANK [facility] 12-17-2023 History of Present illness Narrative Potassium level 5.7 today. Reviewed with Bette Grey. Results faxed to PCP for follow up documented in this encounter [facility] 12-17-2023 Telephone encounter Note Patient will be going today @ 5:00 pm for STAT US @ [place]. Paris Vigil [facility] 12-17-2023 History of Present illness Narrative PATIENT NAME: Jolly Sierra DATE: 12/17/2023 PRIMARY CARE PHYSICIAN: Jose J Donaldson Jr, OTHER PHYSICIANS: Dr. Jason Will, Dr. Antonio Gary Portions of this encounter note have been copied from Dr. Dasilva's note from 11/26/2023 and has been updated where appropriate, and reflect my current medical decision making from today. CC: This is a 78 year old male with recently diagnosed bladder cancer, seen for scheduled follow-up. INTERM HISTORY: Mr. Sierra returns for cycle 3 day 1 of treatment. About a day after chemo he began to notice swelling on right foot and argueta and left argueta and right elbow area. It was painful and mildly pink. It resolved except a small amount of swelling in his right antecubital regions. He saw his PCP for a routine visit on 12/10/2023 and had a labs that revealed anemia and low platelets of 47,000. He had a urinlaysis which showed enterococcus faecalis and was started on macrobid 100 mg BID on 12/10/23. He is still on the antibiotic and completely asymptomatic. He does however have significant fatigue. Otherwise he denies any nausea, vomiting, diarrhea, fevers, or chills. MEDICATIONS: Current Outpatient Medications Medication Sig ondansetron (ZOFRAN) 8 mg tablet Take 1 tablet by mouth every 8 hours as needed for nausea/vomiting. prochlorperazine (COMPAZINE) 10 mg tablet Take 1 tablet by mouth every 6 hours as needed. ramipril (ALTACE) 10 mg capsule Take 10 mg by mouth once daily. No current facility-administered medications for this visit. ALLERGIES: ALLERGIES No Known Allergies PAST MEDICAL HISTORY: PAST MEDICAL HISTORY No date: HLD (hyperlipidemia) No date: HTN (hypertension) No date: Neurogenic bladder PAST SURGICAL HISTORY: PAST SURGICAL HISTORY No date: CYSTOSCOPY 2006: PAST SURGICAL HISTORY OF Comment: bladder surgery No date: PAST SURGICAL HISTORY OF Comment: Robotic Laproscopic Cystoplasty bladder augmentation with stent FAMILY HISTORY: FAMILY HISTORY Problem Relation Age of Onset Heart disease Father SOCIAL HISTORY: Social History Tobacco Use Smoking status: Never Passive exposure: Never Smokeless tobacco: Never Vaping Use Vaping Use: Never used Substance Use Topics Alcohol use: Not Currently Drug use: Never COMPLETE REVIEW OF SYSTEMS: CONSTITUTION: Negative for pain, fatigue, weight loss, or appetite loss. EENT: Negative for mouth soreness, antibiotics use, epistaxis, visual problems, neck or facial swelling, fever/chills, bleeding gums, or hearing loss. CV: Negative for edema, calf swelling, palpitations, or chest pain. RESPIRATORY: Negative for cough, SOB, hemoptysis, or wheezing. GI: Negative for nausea/vomiting, heartburn, vomiting blood, dysphasia, diarrhea, blood in stool, constipation, early satiety, PICA, vegetarian, poor nutrition, abdominal fullness, or abdominal pain. NEUROLOGICAL: Negative for numbness/tingling, dizziness, gait disturbance, headache, speech disturbance, tremor, hemiparesis/sensory loss, or change in mental status. MUSCULOSKELETAL: Negative for joint pain, joint swelling, or proximal muscle weakness. SKIN: Negative for hair loss, bruising, nail changes, rash, itching, pallor, or jaundice. ENDO/URO: Negative for hot flashes, cold or heat intolerance, urinary frequency, urinary hesitancy, menorrhagia, or hematuria. PSYCH: Negative for anxiety, depression, or other. PHYSICAL EXAM: BP 150/72 Pulse 88 Temp 36.2 C (97.2 F) (Temporal) Resp 16 Ht 174.5 cm (5' 8.7 ) Wt 85.6 kg (188 lb 11.4 oz) SpO2 97% BMI 28.11 kg/m General: Alert and oriented, no distress, pleasant and cooperative. Heart: Regular, normal S1 and S2, no murmurs, rubs, or gallops Lungs: Clear to auscultation bilaterally Abdomen: Benign Extremities: Feet/ankles without edema, right medial antecub with small area of swelling, no redness or warmth PATHOLOGY: 09/06/2023 Robotic bladder diverticulectomy and right pelvic lymph node dissection. A. Urinary bladder, neck of diverticulum, excision: - Benign bladder mucosa and muscularis propria. B. Lymph nodes, right pelvic, regional resection: - Two lymph nodes, negative for malignancy (0/2). C. 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 - Margins are negative for tumor. LABS: Hemoglobin (g/dL) Date Value 12/17/2023 10.2 Hematocrit (%) Date Value 12/17/2023 30.6 WBC (k/uL) Date Value 12/17/2023 5.01 Platelet Count (k/uL) Date Value 12/17/2023 303 RADIOLOGY/OTHER STUDIES: 10/16/2023 PET scan IMPRESSION: HEAD/NECK: * No FDG avid neoplastic process. * Diffusely enlarged thyroid demonstrating heterogeneous FDG avidity with multiple large thyroid nodules measuring up to 2.9 cm. Correlate with serology and/or thyroid ultrasound for TI-RADS ultrasound criteria evaluation and decision support regarding observation versus tissue sampling. ? CHEST: * No FDG avid neoplastic process. ABDOMEN/PELVIS: * Prior RIGHT urinary bladder diverticulectomy with residual bladder wall thickening in the operative bed and extending along the urinary bladder fundus. Degree of FDG avidity is poorly assessed due to adjacent urinary bladder luminal FDG avidity. Continued attention on follow-up is recommended * No hypermetabolic abdominopelvic lymphadenopathy. * Nonspecific bilateral adrenal gland uptake, possibly physiologic or secondary to hyperplasia. Attention on follow-up. * Mild, diffuse radiotracer uptake within the prostate without discrete focal lesion. Correlate with PSA. * Ill-defined minimally FDG avid soft tissue attenuation in the LEFT inguinal region likely representing postoperative material given reported history of prior incarcerated LEFT inguinal hernia repair. Continued attention on follow-up. MUSCULOSKELETAL: * No FDG avid neoplastic process. 09/03/2023 CT urogram IMPRESSION: 1. Large diverticulum arising from the right posterior wall of the urinary bladder. There is asymmetric wall thickening and increased enhancement along the posterior and superior aspect of the bladder diverticulum. This is highly suspicious for urothelial carcinoma and can be correlated with cystoscopy if not already performed. No metastatic disease detected in the abdomen or pelvis. No upper tract urothelial filling defects detected. ASSESSMENT/PLAN: 1. 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 The patient presented in April 2023 with gross hematuria. Initial cystoscopy 08/01/2023 revealed a large diverticulum on the right bladder floor. CT urogram 09/03/2023 confirmed a large diverticulum arising from the right posterior wall of the urinary bladder. On 09/06/2023 he underwent robotic bladder diverticulectomy plus right pelvic lymph node dissection. Pathology revealed high-grade urothelial carcinoma, greatest dimension 5 cm, with invasion of the perivesical fat (T3b). 2 resected lymph nodes were negative for metastasis. PET scan 10/16/2023 revealed no evidence of metastases. Postop recommendations were to proceed with adjuvant chemotherapy consisting of cisplatin plus gemcitabine x 4 cycles. Treatment started 11/05/2023. Currently stable. He will receive cycle 3-day 1 today, and he would like to be seen on day 8 as well. Encouraged increasing fluid consumption due to mildly lower GFR of 56. 2. Neurogenic bladder - ICD9: 596.54, ICD10: N31.9 Acute bladder dysfunction since 2005. Previously the patient required CIC several times daily. Currently urinating without the need for catheterization. Continue management per PCP/urology. 3. Hyperlipidemia - ICD9: 272.4, ICD10: E78.5 Stable on current medications, continue per PCP. 4. Primary hypertension - ICD9: 401.9, ICD10: I10 Stable on current medications, continue per PCP. 5. Abnormal thyroid Baseline PET scan 10/16/2023 revealed diffusely enlarged thyroid demonstrating heterogeneous FDG avidity with multiple large thyroid nodules measuring up to 2.9 cm. Will discuss further evaluation including thyroid ultrasound +/- referral to ENT 6. UTI Currently on Macrobid and asymptomatic per PCP 7. Hyperkalemia Will forward lab to PCP who is managing. 8. Anemia Likely chemotherapy induced. Will check iron studies. Marlee Dan PA-C CC: Dr. Lalito Roman spent a total of 23 minutes on the date of the service which included preparing to see the patient, [id number] patient care, completing clinical documentation, performing a medically appropriate examination, counseling and educating the patient/family/caregiver, ordering medications, tests, or procedures, independently interpreting results (not separately reported), communicating results to the patient/family/caregiver, and care coordination (not separately reported). documented in this encounter [facility] 11-26-2023 History of Present illness Narrative SOCIAL WORK FOLLOW UP NOTE: [facility] Date of service:11/26/23 Jolly Sierra is being seen for a follow up social work visit. Today's visit includes: patient TOPICS ADDRESSED: SW services PLAN: Continue follow up as needed Assigned SW listed in Care Team tab: Yes SW met with this Patient in the infusion room. SW shared with him information on the role of an Oncology SW. Patient denied any psychosocial needs or the need for SW services at this time. SW will remain available and will follow up as appropriate. TRACIE Holden documented in this encounter [facility] 11-25-2023 History of Present illness Narrative PATIENT NAME: Jolly Sierra DATE: 11/26/2023 PRIMARY CARE PHYSICIAN: Jose J Donaldson Jr, DO OTHER PHYSICIANS: Dr. Jason Will, Dr. Antonio Gary Portions of this encounter note have been copied from the note from 11/12/2023 and has been updated where appropriate, and reflect my current medical decision making from today. CC: This is a 78 year old male with recently diagnosed bladder cancer, seen for scheduled follow-up. INTERM HISTORY: The patient tolerated his first cycle of chemotherapy well. No significant nausea, vomiting or other adverse effects. He continues to urinate without the need of a catheter. No hematuria. Overall he feels well today and desires to proceed with treatment as scheduled. MEDICATIONS: Current Outpatient Medications Medication Sig tamsulosin (FLOMAX) 0.4 mg take 1 capsule by mouth every night at bedtime sodium zirconium cyclosilicate (LOKELMA) 10 gram oral packet Take 10 g by mouth every other day. Psyllium Seed-Sucrose (METAMUCIL, SUGAR,) Take 1 Tablespoonful by mouth once daily. ondansetron (ZOFRAN) 8 mg tablet Take 1 tablet by mouth every 8 hours as needed for nausea/vomiting. prochlorperazine (COMPAZINE) 10 mg tablet Take 1 tablet by mouth every 6 hours as needed. ramipril (ALTACE) 10 mg capsule Take 10 mg by mouth once daily. rosuvastatin (CRESTOR) 5 mg tablet Take 5 mg by mouth once daily. spironolactone (ALDACTONE) 50 mg tablet Take 50 mg by mouth once daily. No current facility-administered medications for this visit. ALLERGIES: ALLERGIES No Known Allergies PAST MEDICAL HISTORY: PAST MEDICAL HISTORY Diagnosis Date HLD (hyperlipidemia) HTN (hypertension) Neurogenic bladder PAST SURGICAL HISTORY: PAST SURGICAL HISTORY Procedure Laterality Date CYSTOSCOPY PAST SURGICAL HISTORY OF 2006 bladder surgery PAST SURGICAL HISTORY OF Robotic Laproscopic Cystoplasty bladder augmentation with stent FAMILY HISTORY: FAMILY HISTORY Problem Relation Age of Onset Heart disease Father SOCIAL HISTORY: Social History Tobacco Use Smoking status: Never Passive exposure: Never Smokeless tobacco: Never Vaping Use Vaping Use: Never used Substance Use Topics Alcohol use: Not Currently Drug use: Never COMPLETE REVIEW OF SYSTEMS: CONSTITUTION: Negative for pain, fatigue, weight loss, or appetite loss. EENT: Negative for mouth soreness, antibiotics use, epistaxis, visual problems, neck or facial swelling, fever/chills, bleeding gums, or hearing loss. CV: Negative for edema, calf swelling, palpitations, or chest pain. RESPIRATORY: Negative for cough, SOB, hemoptysis, or wheezing. GI: Negative for nausea/vomiting, heartburn, vomiting blood, dysphasia, diarrhea, blood in stool, constipation, early satiety, PICA, vegetarian, poor nutrition, abdominal fullness, or abdominal pain. NEUROLOGICAL: Negative for numbness/tingling, dizziness, gait disturbance, headache, speech disturbance, tremor, hemiparesis/sensory loss, or change in mental status. MUSCULOSKELETAL: Negative for joint pain, joint swelling, or proximal muscle weakness. SKIN: Negative for hair loss, bruising, nail changes, rash, itching, pallor, or jaundice. ENDO/URO: Negative for hot flashes, cold or heat intolerance, urinary frequency, urinary hesitancy, menorrhagia, or hematuria. PSYCH: Negative for anxiety, depression, or other. PHYSICAL EXAM: BP 135/67 Pulse 70 Temp 36.4 C (97.6 F) (Temporal) Resp 18 Ht 174.5 cm (5' 8.7 ) Wt 86.3 kg (190 lb 4.1 oz) SpO2 99% BMI 28.34 kg/m General: Alert and oriented, no distress, pleasant and cooperative. Heart: Regular, normal S1 and S2, no murmurs, rubs, or gallops Lungs: Clear to auscultation bilaterally Abdomen: Benign Extremities: Feet/ankles without edema, posterior tibial pulses full and symmetrical PATHOLOGY: 09/06/2023 Robotic bladder diverticulectomy and right pelvic lymph node dissection. A. Urinary bladder, neck of diverticulum, excision: - Benign bladder mucosa and muscularis propria. B. Lymph nodes, right pelvic, regional resection: - Two lymph nodes, negative for malignancy (0/2). C. 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 - Margins are negative for tumor. LABS: Hemoglobin (g/dL) Date Value 11/26/2023 11.1 Hematocrit (%) Date Value 11/26/2023 34.2 WBC (k/uL) Date Value 11/26/2023 3.63 Platelet Count (k/uL) Date Value 11/26/2023 297 RADIOLOGY/OTHER STUDIES: 10/16/2023 PET scan IMPRESSION: HEAD/NECK: * No FDG avid neoplastic process. * Diffusely enlarged thyroid demonstrating heterogeneous FDG avidity with multiple large thyroid nodules measuring up to 2.9 cm. Correlate with serology and/or thyroid ultrasound for TI-RADS ultrasound criteria evaluation and decision support regarding observation versus tissue sampling. ? CHEST: * No FDG avid neoplastic process. ABDOMEN/PELVIS: * Prior RIGHT urinary bladder diverticulectomy with residual bladder wall thickening in the operative bed and extending along the urinary bladder fundus. Degree of FDG avidity is poorly assessed due to adjacent urinary bladder luminal FDG avidity. Continued attention on follow-up is recommended * No hypermetabolic abdominopelvic lymphadenopathy. * Nonspecific bilateral adrenal gland uptake, possibly physiologic or secondary to hyperplasia. Attention on follow-up. * Mild, diffuse radiotracer uptake within the prostate without discrete focal lesion. Correlate with PSA. * Ill-defined minimally FDG avid soft tissue attenuation in the LEFT inguinal region likely representing postoperative material given reported history of prior incarcerated LEFT inguinal hernia repair. Continued attention on follow-up. MUSCULOSKELETAL: * No FDG avid neoplastic process. 09/03/2023 CT urogram IMPRESSION: 1. Large diverticulum arising from the right posterior wall of the urinary bladder. There is asymmetric wall thickening and increased enhancement along the posterior and superior aspect of the bladder diverticulum. This is highly suspicious for urothelial carcinoma and can be correlated with cystoscopy if not already performed. No metastatic disease detected in the abdomen or pelvis. No upper tract urothelial filling defects detected. ASSESSMENT/PLAN: 1. 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 The patient presented in April 2023 with gross hematuria. Initial cystoscopy 08/01/2023 revealed a large diverticulum on the right bladder floor. CT urogram 09/03/2023 confirmed a large diverticulum arising from the right posterior wall of the urinary bladder. On 09/06/2023 he underwent robotic bladder diverticulectomy plus right pelvic lymph node dissection. Pathology revealed high-grade urothelial carcinoma, greatest dimension 5 cm, with invasion of the perivesical fat (T3b). 2 resected lymph nodes were negative for metastasis. PET scan 10/16/2023 revealed no evidence of metastases. Postop recommendations were to proceed with adjuvant chemotherapy consisting of cisplatin plus gemcitabine x 4 cycles. Treatment started 11/05/2023. Currently stable. He will receive cycle 2-day 1 today, and day 8 in 1 week. Return in 3 weeks to start cycle 3. 2. Neurogenic bladder - ICD9: 596.54, ICD10: N31.9 Acute bladder dysfunction since 2005. Previously the patient required CIC several times daily. Currently urinating without the need for catheterization. Continue management per PCP/urology. 3. Hyperlipidemia - ICD9: 272.4, ICD10: E78.5 Stable on current medications, continue per PCP. 4. Primary hypertension - ICD9: 401.9, ICD10: I10 Stable on current medications, continue per PCP. 5. Abnormal thyroid Baseline PET scan 10/16/2023 revealed diffusely enlarged thyroid demonstrating heterogeneous FDG avidity with multiple large thyroid nodules measuring up to 2.9 cm. Will discuss further evaluation including thyroid ultrasound +/- referral to ENT Faisal Dasilva MD CC: Dr. Donaldson documented in this encounter [facility] 11-11-2023 History of Present illness Narrative PATIENT NAME: Jolly Sierra DATE: 11/12/2023 PRIMARY CARE PHYSICIAN: Jose J Donaldson Jr, DO OTHER PHYSICIANS: Dr. Jason Will, Dr. Antonio Gary Portions of this encounter note have been copied from the note from 11/05/2023 and has been updated where appropriate, and reflect my current medical decision making from today. CC: This is a 78 year old male with recently diagnosed bladder cancer, seen for scheduled follow-up. INTERM HISTORY: The patient tolerated his first chemotherapy treatment well. No significant nausea, vomiting or other adverse effects. Apparently he has had intermittent high potassium levels, recently started on Lokelma per PCP. On review of medications he is on at least 2 medications which may be contribute to his high potassium levels. Overall he feels well today and desires to proceed with treatment as scheduled. MEDICATIONS: Current Outpatient Medications Medication Sig sodium zirconium cyclosilicate (LOKELMA) 10 gram oral packet Take 10 g by mouth every other day. Psyllium Seed-Sucrose (METAMUCIL, SUGAR,) Take 1 Tablespoonful by mouth once daily. tamsulosin (FLOMAX) 0.4 mg Take 1 capsule by mouth daily at bedtime. ondansetron (ZOFRAN) 8 mg tablet Take 1 tablet by mouth every 8 hours as needed for nausea/vomiting. prochlorperazine (COMPAZINE) 10 mg tablet Take 1 tablet by mouth every 6 hours as needed. ramipril (ALTACE) 10 mg capsule Take 10 mg by mouth once daily. rosuvastatin (CRESTOR) 5 mg tablet Take 5 mg by mouth once daily. spironolactone (ALDACTONE) 50 mg tablet Take 50 mg by mouth once daily. No current facility-administered medications for this visit. ALLERGIES: ALLERGIES No Known Allergies PAST MEDICAL HISTORY: PAST MEDICAL HISTORY Diagnosis Date HLD (hyperlipidemia) HTN (hypertension) Neurogenic bladder PAST SURGICAL HISTORY: PAST SURGICAL HISTORY Procedure Laterality Date CYSTOSCOPY PAST SURGICAL HISTORY OF 2006 bladder surgery PAST SURGICAL HISTORY OF Robotic Laproscopic Cystoplasty bladder augmentation with stent FAMILY HISTORY: FAMILY HISTORY Problem Relation Age of Onset Heart disease Father SOCIAL HISTORY: Social History Tobacco Use Smoking status: Never Passive exposure: Never Smokeless tobacco: Never Vaping Use Vaping Use: Never used Substance Use Topics Alcohol use: Not Currently Drug use: Never COMPLETE REVIEW OF SYSTEMS: CONSTITUTION: Negative for pain, fatigue, weight loss, or appetite loss. EENT: Negative for mouth soreness, antibiotics use, epistaxis, visual problems, neck or facial swelling, fever/chills, bleeding gums, or hearing loss. CV: Negative for edema, calf swelling, palpitations, or chest pain. RESPIRATORY: Negative for cough, SOB, hemoptysis, or wheezing. GI: Negative for nausea/vomiting, heartburn, vomiting blood, dysphasia, diarrhea, blood in stool, constipation, early satiety, PICA, vegetarian, poor nutrition, abdominal fullness, or abdominal pain. NEUROLOGICAL: Negative for numbness/tingling, dizziness, gait disturbance, headache, speech disturbance, tremor, hemiparesis/sensory loss, or change in mental status. MUSCULOSKELETAL: Negative for joint pain, joint swelling, or proximal muscle weakness. SKIN: Negative for hair loss, bruising, nail changes, rash, itching, pallor, or jaundice. ENDO/URO: Negative for hot flashes, cold or heat intolerance, urinary frequency, urinary hesitancy, menorrhagia, or hematuria. PSYCH: Negative for anxiety, depression, or other. PHYSICAL EXAM: BP 125/61 Pulse 73 Temp 36.2 C (97.2 F) (Temporal) Resp 18 Wt 84.5 kg (186 lb 4.6 oz) SpO2 100% BMI 27.75 kg/m General: Alert and oriented, no distress, pleasant and cooperative. Heart: Regular, normal S1 and S2, no murmurs, rubs, or gallops Lungs: Clear to auscultation bilaterally Abdomen: Benign Extremities: Feet/ankles without edema, posterior tibial pulses full and symmetrical PATHOLOGY: 09/06/2023 Robotic bladder diverticulectomy and right pelvic lymph node dissection. A. Urinary bladder, neck of diverticulum, excision: - Benign bladder mucosa and muscularis propria. B. Lymph nodes, right pelvic, regional resection: - Two lymph nodes, negative for malignancy (0/2). C. 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 - Margins are negative for tumor. LABS: Hemoglobin (g/dL) Date Value 11/12/2023 12.0 Hematocrit (%) Date Value 11/12/2023 37.4 WBC (k/uL) Date Value 11/12/2023 4.53 Platelet Count (k/uL) Date Value 11/12/2023 90 RADIOLOGY/OTHER STUDIES: 10/16/2023 PET scan IMPRESSION: HEAD/NECK: * No FDG avid neoplastic process. * Diffusely enlarged thyroid demonstrating heterogeneous FDG avidity with multiple large thyroid nodules measuring up to 2.9 cm. Correlate with serology and/or thyroid ultrasound for TI-RADS ultrasound criteria evaluation and decision support regarding observation versus tissue sampling. ? CHEST: * No FDG avid neoplastic process. ABDOMEN/PELVIS: * Prior RIGHT urinary bladder diverticulectomy with residual bladder wall thickening in the operative bed and extending along the urinary bladder fundus. Degree of FDG avidity is poorly assessed due to adjacent urinary bladder luminal FDG avidity. Continued attention on follow-up is recommended * No hypermetabolic abdominopelvic lymphadenopathy. * Nonspecific bilateral adrenal gland uptake, possibly physiologic or secondary to hyperplasia. Attention on follow-up. * Mild, diffuse radiotracer uptake within the prostate without discrete focal lesion. Correlate with PSA. * Ill-defined minimally FDG avid soft tissue attenuation in the LEFT inguinal region likely representing postoperative material given reported history of prior incarcerated LEFT inguinal hernia repair. Continued attention on follow-up. MUSCULOSKELETAL: * No FDG avid neoplastic process. 09/03/2023 CT urogram IMPRESSION: 1. Large diverticulum arising from the right posterior wall of the urinary bladder. There is asymmetric wall thickening and increased enhancement along the posterior and superior aspect of the bladder diverticulum. This is highly suspicious for urothelial carcinoma and can be correlated with cystoscopy if not already performed. No metastatic disease detected in the abdomen or pelvis. No upper tract urothelial filling defects detected. ASSESSMENT/PLAN: 1. 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 The patient presented in April 2023 with gross hematuria. Initial cystoscopy 08/01/2023 revealed a large diverticulum on the right bladder floor. CT urogram 09/03/2023 confirmed a large diverticulum arising from the right posterior wall of the urinary bladder. On 09/06/2023 he underwent robotic bladder diverticulectomy plus right pelvic lymph node dissection. Pathology revealed high-grade urothelial carcinoma, greatest dimension 5 cm, with invasion of the perivesical fat (T3b). 2 resected lymph nodes were negative for metastasis. PET scan 10/16/2023 revealed no evidence of metastases. Postop recommendations were to proceed with adjuvant chemotherapy consisting of cisplatin plus gemcitabine x 4 cycles. Treatment started 11/05/2023. He will receive cycle 1 day 8 today. Return in 2 weeks to start cycle 2. 2. Neurogenic bladder - ICD9: 596.54, ICD10: N31.9 Acute bladder dysfunction since 2005. Previously the patient required CIC several times daily. Currently urinating without the need for catheterization. Continue management per PCP/urology. 3. Hyperlipidemia - ICD9: 272.4, ICD10: E78.5 Stable on current medications, continue per PCP. 4. Primary hypertension - ICD9: 401.9, ICD10: I10 Stable on current medications, continue per PCP. Apparently the patient has had intermittent hyperkalemia, currently on Lokelma per PCP. He will discuss with his PCP whether to adjust his current BP medications and how to adjust Lokelma. 5. Abnormal thyroid Baseline PET scan 10/16/2023 revealed diffusely enlarged thyroid demonstrating heterogeneous FDG avidity with multiple large thyroid nodules measuring up to 2.9 cm. Will discuss further evaluation including thyroid ultrasound +/- referral to ENT Faisal Dasilva MD CC: Dr. Donaldson documented in this encounter [facility] 11-09-2023 History of Present illness Narrative Patient appears on the [facility] First Time Treatment List. SW completed a chart review. SW will plan to meet with Patient at a future appointment in order to complete a psychosocial assessment. TRACIE Holden Goals of Care Advance Directives are not on file. SIGNATURE: PAMELA Holden PATIENT NAME: Jolly Sierra DATE: November 09, 2023 TIME: 3:54 PM PAGER/CONTACT #: documented in this encounter [facility] 11-07-2023 Telephone encounter Note CYCLE 1/DAY 1 POST TREATMENT CALL Today's date: November 07, 2023 Treatment Regimen: Gemcitabine & Cisplatin C1D1 Date: 11/05/23 Called patient to follow-up on symptom management. Spoke with patient. SYMPTOM ASSESSMENT Neuro: None CV/Resp: None GI/: Appetite: increased appetite, Fluid intake: Pt reports he has increased his fluid intake., Constipation: yes, last BM Sunday. Will try dulcolax today., and Bladder/Urinary Changes: Increased output Integument: None Activity: Patient reported decreased energy level Do you need to take naps? Yes; Do you wake up feeling rested? Yes Rates his fatigue 10. Pain: No=0 (pain 0 on a scale of 0-10). Fever: No Chills: No Any new referrals needed? No Reinforced CURRENT treatment education based on current and anticipated symptoms. Discussed port/line care and patient verbalizes understanding: Not Applicable Patient instructed to contact office or after hours Hematology/Oncology fellow for: temperature ? 100.4; questions or concerns. Patient verbalized understanding of when to seek medical attention and after hours number protocol. Donald Perez RN [facility] Work Phone: 11-07-2023 Miscellaneous Notes CYCLE 1/DAY 1 POST TREATMENT CALL Today's date: November 07, 2023 Treatment Regimen: Gemcitabine & Cisplatin C1D1 Date: 11/05/23 Called patient to follow-up on symptom management. Spoke with patient. SYMPTOM ASSESSMENT Neuro: None CV/Resp: None GI/: Appetite: increased appetite, Fluid intake: Pt reports he has increased his fluid intake., Constipation: yes, last BM Sunday. Will try dulcolax today., and Bladder/Urinary Changes: Increased output Integument: None Activity: Patient reported decreased energy level Do you need to take naps? Yes; Do you wake up feeling rested? Yes Rates his fatigue 6/10. Pain: No=0 (pain 0 on a scale of 0-10). Fever: No Chills: No Any new referrals needed? No Reinforced CURRENT treatment education based on current and anticipated symptoms. Discussed port/line care and patient verbalizes understanding: Not Applicable Patient instructed to contact office or after hours Hematology/Oncology fellow for: temperature ? 100.4; questions or concerns. Patient verbalized understanding of when to seek medical attention and after hours number protocol. Donald Perez RN documented in this encounter [facility] 11-05-2023 History of Present illness Narrative PATIENT NAME: Jolly Sierra DATE: 11/05/2023 PRIMARY CARE PHYSICIAN: Jose J Donaldson Jr, DO OTHER PHYSICIANS: Dr. Jason Will, Dr. Antonio Gary (Elements copied from Dr. Dasilva's note dated October 22, 2023, have been reviewed and updated where appropriate, and all reflect current assessment and medical decision making during today's encounter, November 05, 2023) CC: This is a 78 year old male with recently diagnosed bladder cancer, seen for scheduled follow-up. INTERM HISTORY: Mr. Sierra returns today to start chemotherapy for his bladder cancer. He denies any issues with urinating, hematuria or dysuria. He does have nocturia. Overall the patient feels well with no particular complaints today. MEDICATIONS: Current Outpatient Medications Medication Sig sodium zirconium cyclosilicate (LOKELMA) 10 gram oral packet Take 10 g by mouth. Twice daily today. Then once daily beginning 11/01/23. Psyllium Seed-Sucrose (METAMUCIL, SUGAR,) Take 1 Tablespoonful by mouth once daily. tamsulosin (FLOMAX) 0.4 mg Take 1 capsule by mouth daily at bedtime. ondansetron (ZOFRAN) 8 mg tablet Take 1 tablet by mouth every 8 hours as needed for nausea/vomiting. prochlorperazine (COMPAZINE) 10 mg tablet Take 1 tablet by mouth every 6 hours as needed. ramipril (ALTACE) 10 mg capsule Take 10 mg by mouth once daily. rosuvastatin (CRESTOR) 5 mg tablet Take 5 mg by mouth once daily. spironolactone (ALDACTONE) 50 mg tablet Take 50 mg by mouth once daily. No current facility-administered medications for this visit. ALLERGIES: ALLERGIES No Known Allergies PAST MEDICAL HISTORY: PAST MEDICAL HISTORY Diagnosis Date HLD (hyperlipidemia) HTN (hypertension) Neurogenic bladder PAST SURGICAL HISTORY: PAST SURGICAL HISTORY Procedure Laterality Date CYSTOSCOPY PAST SURGICAL HISTORY OF 2005 bladder surgery PAST SURGICAL HISTORY OF Robotic Laproscopic Cystoplasty bladder augmentation with stent FAMILY HISTORY: FAMILY HISTORY Problem Relation Age of Onset Heart disease Father SOCIAL HISTORY: Social History Tobacco Use Smoking status: Never Passive exposure: Never Smokeless tobacco: Never Vaping Use Vaping Use: Never used Substance Use Topics Alcohol use: Not Currently Drug use: Never COMPLETE REVIEW OF SYSTEMS: CONSTITUTION: Negative for pain, fatigue, weight loss, or appetite loss. EENT: Negative for mouth soreness, antibiotics use, epistaxis, visual problems, neck or facial swelling, fever/chills, bleeding gums, or hearing loss. CV: Negative for edema, calf swelling, palpitations, or chest pain. RESPIRATORY: Negative for cough, SOB, hemoptysis, or wheezing. GI: Negative for nausea/vomiting, heartburn, vomiting blood, dysphasia, diarrhea, blood in stool, constipation, early satiety, PICA, vegetarian, poor nutrition, abdominal fullness, or abdominal pain. NEUROLOGICAL: Negative for numbness/tingling, dizziness, gait disturbance, headache, speech disturbance, tremor, hemiparesis/sensory loss, or change in mental status. MUSCULOSKELETAL: Negative for joint pain, joint swelling, or proximal muscle weakness. SKIN: Negative for hair loss, bruising, nail changes, rash, itching, pallor, or jaundice. ENDO/URO: Negative for hot flashes, cold or heat intolerance, urinary frequency, urinary hesitancy, menorrhagia, or hematuria. PSYCH: Negative for anxiety, depression, or other. PHYSICAL EXAM: BP 136/79 Pulse 62 Temp 36.2 C (97.1 F) (Temporal) Resp 16 Ht 174.5 cm (5' 8.7 ) Wt 86.4 kg (190 lb 7.6 oz) SpO2 98% BMI 28.37 kg/m General: Alert and oriented, no distress, pleasant and cooperative. Heart: Regular, normal S1 and S2, no murmurs, rubs, or gallops Lungs: Clear to auscultation bilaterally Abdomen: Benign Extremities: Feet/ankles without edema, posterior tibial pulses full and symmetrical PATHOLOGY: 09/06/2023 Robotic bladder diverticulectomy and right pelvic lymph node dissection. A. Urinary bladder, neck of diverticulum, excision: - Benign bladder mucosa and muscularis propria. B. Lymph nodes, right pelvic, regional resection: - Two lymph nodes, negative for malignancy (0/2). C. 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 - Margins are negative for tumor. LABS: Hemoglobin (g/dL) Date Value 11/05/2023 12.7 Hematocrit (%) Date Value 11/05/2023 39.9 WBC (k/uL) Date Value 11/05/2023 7.85 Platelet Count (k/uL) Date Value 11/05/2023 199 RADIOLOGY/OTHER STUDIES: 10/16/2023 PET scan IMPRESSION: HEAD/NECK: * No FDG avid neoplastic process. * Diffusely enlarged thyroid demonstrating heterogeneous FDG avidity with multiple large thyroid nodules measuring up to 2.9 cm. Correlate with serology and/or thyroid ultrasound for TI-RADS ultrasound criteria evaluation and decision support regarding observation versus tissue sampling. ? CHEST: * No FDG avid neoplastic process. ABDOMEN/PELVIS: * Prior RIGHT urinary bladder diverticulectomy with residual bladder wall thickening in the operative bed and extending along the urinary bladder fundus. Degree of FDG avidity is poorly assessed due to adjacent urinary bladder luminal FDG avidity. Continued attention on follow-up is recommended * No hypermetabolic abdominopelvic lymphadenopathy. * Nonspecific bilateral adrenal gland uptake, possibly physiologic or secondary to hyperplasia. Attention on follow-up. * Mild, diffuse radiotracer uptake within the prostate without discrete focal lesion. Correlate with PSA. * Ill-defined minimally FDG avid soft tissue attenuation in the LEFT inguinal region likely representing postoperative material given reported history of prior incarcerated LEFT inguinal hernia repair. Continued attention on follow-up. MUSCULOSKELETAL: * No FDG avid neoplastic process. 09/03/2023 CT urogram IMPRESSION: 1. Large diverticulum arising from the right posterior wall of the urinary bladder. There is asymmetric wall thickening and increased enhancement along the posterior and superior aspect of the bladder diverticulum. This is highly suspicious for urothelial carcinoma and can be correlated with cystoscopy if not already performed. No metastatic disease detected in the abdomen or pelvis. No upper tract urothelial filling defects detected. ASSESSMENT/PLAN: 1. 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 The patient presented in April 2023 with gross hematuria. Initial cystoscopy 08/01/2023 revealed a large diverticulum on the right bladder floor. CT urogram 09/03/2023 confirmed a large diverticulum arising from the right posterior wall of the urinary bladder. On 09/06/2023 he underwent robotic bladder diverticulectomy plus right pelvic lymph node dissection. Pathology revealed high-grade urothelial carcinoma, greatest dimension 5 cm, with invasion of the perivesical fat (T3b). 2 resected lymph nodes were negative for metastasis. PET scan 10/16/2023 revealed no evidence of metastases. Today we will start adjuvant cisplatin and gemcitabine treatment for 4 cycles. He will return in 1 week for day 8. 2. Neurogenic bladder - ICD9: 596.54, ICD10: N31.9 Acute bladder dysfunction since 2005. Previously the patient required CIC several times daily. Currently urinating without the need for catheterization. Continue management per PCP/urology. 3. Hyperlipidemia - ICD9: 272.4, ICD10: E78.5 Stable on current medications, continue per PCP. 4. Primary hypertension - ICD9: 401.9, ICD10: I10 Stable on current medications, continue per PCP. 5. Abnormal thyroid Baseline PET scan 10/16/2023 revealed diffusely enlarged thyroid demonstrating heterogeneous FDG avidity with multiple large thyroid nodules measuring up to 2.9 cm. Will discuss further evaluation including thyroid ultrasound +/- referral to ENT Marlee Dan PA-C I spent a total of 20 minutes on the date of the service which included preparing to see the patient, [id number] patient care, completing clinical documentation, obtaining and/or reviewing separately obtained history, performing a medically appropriate examination, counseling and educating the patient/family/caregiver, ordering medications, tests, or procedures, communicating with other HCPs (not separately reported), independently interpreting results (not separately reported), communicating results to the patient/family/caregiver, and care coordination (not separately reported). documented in this encounter [facility] 10-31-2023 Telephone encounter Note Shipping And Receiving Pre Chemo Patient identified by name and date of . YES Confirmed date and time for chemotherapy ? YES Other appointments (labs, imaging) discussed? YES Discussed where to park (automation/controls manager), charge for parking NO Discussed where to report (building/floor) YES Any pre-medications ordered? NO Described the infusion room and what to expect. (What to wear, what to bring [iPad, books] amount of time treatment can take, meals and CC options for food) YES Note: NA Discussed whether the patient can eat prior to labs and treatment. YES Who is driving you to and from treatment? Spouse Discussed why it is important to bring someone with you. Yes, Resources discussed (music therapy, Art therapy, pet therapy, etc.) YES Education on chemotherapy (drug, side effects) discussed and that the patient will be receiving a C1D1 call within 7 days of treatment. YES Other topics discussed, interventions needed: Pt reports that he was in to see his PCP today. Notes his potassium was 6. Prescribed Lokelma 10 grams. Was instructed to take 2 doses today then 1 dose daily each day after. Dr Donaldson has ordered his potassium to be redrawn next 11/05. Informed pt that we would be drawing his labs on Sunday and that we could forward those results to Dr Donaldson. Pt verbalizes understanding. Donald ePrez RN [facility] Work Phone: 10-31-2023 Miscellaneous Notes Shipping And Receiving Pre Chemo Patient identified by name and date of . YES Confirmed date and time for chemotherapy ? YES Other appointments (labs, imaging) discussed? YES Discussed where to park (automation/controls manager), charge for parking NO Discussed where to report (building/floor) YES Any pre-medications ordered? NO Described the infusion room and what to expect. (What to wear, what to bring [iPad, books] amount of time treatment can take, meals and CC options for food) YES Note: NA Discussed whether the patient can eat prior to labs and treatment. YES Who is driving you to and from treatment? Spouse Discussed why it is important to bring someone with you. Yes, Resources discussed (music therapy, Art therapy, pet therapy, etc.) YES Education on chemotherapy (drug, side effects) discussed and that the patient will be receiving a C1D1 call within 7 days of treatment. YES Other topics discussed, interventions needed: Pt reports that he was in to see his PCP today. Notes his potassium was 6. Prescribed Lokelma 10 grams. Was instructed to take 2 doses today then 1 dose daily each day after. Dr Donaldson has ordered his potassium to be redrawn next 11/05. Informed pt that we would be drawing his labs on Sunday and that we could forward those results to Dr Donaldson. Pt verbalizes understanding. Donald Perez RN documented in this encounter [facility] 06-25-2024 Telephone encounter Note Pt sees Marlee 7/1 and starts C1 tx. Consent was start, please sign. Thank you, Yesenia Irving RN [facility] 10-30-2023 Miscellaneous Notes Pt sees Marlee 7/1 and starts C1 tx. Consent was start, please sign. Thank you, Yesenia Irving RN documented in this encounter [facility] 10-24-2023 History of Present illness Narrative ONCOLOGY PATIENT EDUCATION NOTE TOPIC: Chemotherapy, Medications: Cisplatin & Gemcitabine patient and spouse here today for education for treatment of Bladder Cancer Anticipated/Scheduled start date: 11/05/23 READINESS TO LEARN: COGNITIVE ABILITY: Alert and oriented MOTIVATION TO LEARN: Interested FAMILY SUPPORT: High - Very involved in pt care INSTRUCTION PROVIDED TO: Patient and Spouse INSTRUCTION PROVIDED BY: Nurse Coordinator PATIENT LEARNS BEST BY: Multiple Methods FACTORS AFFECTING LEARNING: None PHYSICAL LIMITATIONS AFFECTING LEARNING: None LEARNING RESPONSE METHOD OF INSTRUCTION: Individual instruction Written instruction/Handouts Verbal instruction PATIENT/FAMILY RESPONSE: Verbalizes understanding of: CHEMOTHERAPY-Regimen, toxicity and side effects INFECTION MANAGEMENT-Signs and symptoms of an infection and importance of contacting the physician POST-PROCEDURE INSTRUCTIONS-Correct actions to take to reduce post procedure complications SYMPTOM MANAGEMENT-Correct actions to take to manage symptoms associated with his/her disease/illness WORSENING CONDITION-Signs and symptoms of a worsening condition that warrant a call to the physician Information received as demonstrated by interest and questions FOLLOW UP PLAN: Patient instructed to call with any further issues Contact information given. SUPPLEMENTAL MATERIAL: Written material was provided at this visit with the following information: - Chemotherapy education was provided by a pharmacist NO - Side effect management information was provided/discussed including but not limited to: anemia, appetite changes, bowel habit changes, diet, electrolyte disturbances, fatigue, headache, hearing impairment, infection, kidney toxicity, mouth hygiene, mucositis, myalgia, nausea/vomitting, neutropenia, peripheral neuropathy, rash, shortness of breath, skin changes, taste changes, thrombocytopenia YES - Provided important phone numbers and contacts during and after hours. YES - Provided information on symptoms that require immediate assistance. YES - Provided Chemotherapy when to call handouts YES - Preventing infection. YES - Treatment schedule and confirmation of appointment times. YES - Available support groups. YES - The importance of contraception during the course of chemotherapy YES - Prescriptions for anti-emetics or treatment prep was given: Compazine and Zofran. YES - A tour was given of the infusion suite with directions for the first day. YES - Neutropenic fever protocol discussed with patient, which included the importance of reporting any fever of 100.4F (38.0C) or greater to the healthcare team as noted on the provided wallet card and/or magnet. YES - 4th Luc Information. YES - Patient services information. YES Time Spent: 43 minutes REFERRAL (RECOMMENDATION): N/A Donald Perez RN documented in this encounter [facility] 10-24-2023 Miscellaneous Notes Addended by: CARRIE NEAL on: 10/24/2023 12:49 PM Modules accepted: Orders documented in this encounter [facility] 10-24-2023 Note Addended by: CARRIE العراقي on: 10/24/2023 12:49 PM Modules accepted: Orders [facility] Work Phone: 10-24-2023 Telephone encounter Note Patient coming in Sunday11/05/23 for follow up treatment. Please add lab orders. Thanks. Anni Perez MA [facility] 10-22-2023 Telephone encounter Note Pt's spouse notified and verbalizes understanding. State that the pt has an appointment w/ his PCP next week. Results forwarded to Dr Donaldson's office. Donald Perez RN [facility] Work Phone: 10-22-2023 Miscellaneous Notes Pt's spouse notified and verbalizes understanding. State that the pt has an appointment w/ his PCP next week. Results forwarded to Dr Donaldson's office. Donald Perez RN ----- Message from Faisal Dasilva MD sent at 10/22/2023 1:18 PM EDT ----- Please inform the patient that his PET scan showed no evidence of metastasis to lymph nodes, bones, or liver. As an incidental finding he has an enlarged thyroid with nodules. Question if any history of thyroid disease. Okay to follow-up with PCP for further management. Otherwise would recommend we proceed with chemotherapy for his bladder cancer as scheduled. documented in this encounter [facility] 10-22-2023 Telephone encounter Note ----- Message from Faisal Dasilva MD sent at 10/22/2023 1:18 PM EDT ----- Please inform the patient that his PET scan showed no evidence of metastasis to lymph nodes, bones, or liver. As an incidental finding he has an enlarged thyroid with nodules. Question if any history of thyroid disease. Okay to follow-up with PCP for further management. Otherwise would recommend we proceed with chemotherapy for his bladder cancer as scheduled. [facility] 10-22-2023 Telephone encounter Note Pt will be in for education (Cisplatin,Gemcitabine) on Sunday. Scripts for antiemetics pended. Donald Perez RN [facility] Work Phone: 10-22-2023 Miscellaneous Notes Pt will be in for education (Cisplatin,Gemcitabine) on Sunday. Scripts for antiemetics pended. Donald Perez RN documented in this encounter [facility] 10-21-2023 History of Present illness Narrative PATIENT NAME: Jolly Sierra DATE: 10/22/2023 PRIMARY CARE PHYSICIAN: Jose J Donaldson Jr, DO OTHER PHYSICIANS: Dr. Jason Will, Dr. Antonio Gary Portions of this encounter note have been copied from my note from 09/27/2023 and has been updated where appropriate, and reflect my current medical decision making from today. CC: This is a 78 year old male with recently diagnosed bladder cancer, seen for scheduled follow-up. INTERM HISTORY: Since the patient's initial visit here he has had no significant medical changes. He has not been able to place a urinary catheter since surgery, but appears to be urinating without complication. No hematuria or dysuria. Overall the patient feels well with no particular complaints today. MEDICATIONS: Current Outpatient Medications Medication Sig docusate sodium (STOOL SOFTENER ORAL) Take by mouth as needed. tamsulosin (FLOMAX) 0.4 mg Take 1 capsule by mouth daily at bedtime. ramipril (ALTACE) 10 mg capsule Take 10 mg by mouth once daily. rosuvastatin (CRESTOR) 5 mg tablet Take 5 mg by mouth once daily. spironolactone (ALDACTONE) 50 mg tablet Take 50 mg by mouth once daily. (Patient not taking: Reported on 09/27/2023) Current Facility-Administered Medications Medication Dose Route Frequency sulfamethoxazole-trimethoprim 800-160 mg 1 tablet (BACTRIM DS) 1 tablet ORAL ONCE (AMB - Up to 30 Days) ALLERGIES: ALLERGIES No Known Allergies PAST MEDICAL HISTORY: PAST MEDICAL HISTORY Diagnosis Date HLD (hyperlipidemia) HTN (hypertension) Neurogenic bladder PAST SURGICAL HISTORY: PAST SURGICAL HISTORY Procedure Laterality Date CYSTOSCOPY PAST SURGICAL HISTORY OF 2006 bladder surgery PAST SURGICAL HISTORY OF Robotic Laproscopic Cystoplasty bladder augmentation with stent FAMILY HISTORY: FAMILY HISTORY Problem Relation Age of Onset Heart disease Father SOCIAL HISTORY: Social History Tobacco Use Smoking status: Never Passive exposure: Never Smokeless tobacco: Never Vaping Use Vaping Use: Never used Substance Use Topics Alcohol use: Not Currently Drug use: Never COMPLETE REVIEW OF SYSTEMS: CONSTITUTION: Negative for pain, fatigue, weight loss, or appetite loss. EENT: Negative for mouth soreness, antibiotics use, epistaxis, visual problems, neck or facial swelling, fever/chills, bleeding gums, or hearing loss. CV: Negative for edema, calf swelling, palpitations, or chest pain. RESPIRATORY: Negative for cough, SOB, hemoptysis, or wheezing. GI: Negative for nausea/vomiting, heartburn, vomiting blood, dysphasia, diarrhea, blood in stool, constipation, early satiety, PICA, vegetarian, poor nutrition, abdominal fullness, or abdominal pain. NEUROLOGICAL: Negative for numbness/tingling, dizziness, gait disturbance, headache, speech disturbance, tremor, hemiparesis/sensory loss, or change in mental status. MUSCULOSKELETAL: Negative for joint pain, joint swelling, or proximal muscle weakness. SKIN: Negative for hair loss, bruising, nail changes, rash, itching, pallor, or jaundice. ENDO/URO: Negative for hot flashes, cold or heat intolerance, urinary frequency, urinary hesitancy, menorrhagia, or hematuria. PSYCH: Negative for anxiety, depression, or other. PHYSICAL EXAM: BP 136/81 Pulse 82 Temp 36.2 C (97.1 F) (Temporal) Resp 18 Ht 177.8 cm (5' 10 ) Wt 85.7 kg (188 lb 15 oz) SpO2 99% BMI 27.11 kg/m GENERAL EXAM: Well developed/well nourished; in no acute distress. SKIN: Negative for lesions, rashes, or ulcers on the upper and lower extremities and face. Negative for palpations/nodules, purpura, and ecchymosis. EENT: Negative for conjunctiva, mucosal pallor, JVD, LAP, thyromegaly, and glossitis. Supple & PERRL. EXTREMITIES: Negative for cyanosis, clubbing, and crepitus. LUNGS: Negative to auscultation, respiratory effort, and percussion. CARDIOVASCULAR: Regular rate. Negative for murmurs/S3S4/abnormal sounds, edema, and carotid bruits. ABDOMEN: Negative for masses, hernia, and spleen/liver abnormalities. RECTAL: Not done PSYCHIATRIC: Negative for mood/affect changes, recent & remote memory changes, and judgement and insight. NEUROLOGICAL: Alert, oriented x person, place, time. Cranial nerves 2-12 intact. Sensory for pain, light touch, vibration intact on all 4 extremities. Reflexes symmetric for biceps/brachioradial/patella/achi lles. MUSCULOSKELETAL: Negative examination of joints, bones, muscles/tendons of all four extremities for inspection, percussion, and palpation. Negative for misallignment, asymmetry, crepitation, tenderness, mass, effusions. Range of motion normal. Negative for joint instability, laxity, dislocation. Gait steady. Negative for swelling, erythema, tenderness, soft tissue swelling, and atrophy. PATHOLOGY: 09/06/2023 Robotic bladder diverticulectomy and right pelvic lymph node dissection. A. Urinary bladder, neck of diverticulum, excision: - Benign bladder mucosa and muscularis propria. B. Lymph nodes, right pelvic, regional resection: - Two lymph nodes, negative for malignancy (0/2). C. 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 - Margins are negative for tumor. LABS: Hemoglobin (g/dL) Date Value 09/07/2023 12.4 Hematocrit (%) Date Value 09/07/2023 36.3 WBC (k/uL) Date Value 09/07/2023 13.79 Platelet Count (k/uL) Date Value 09/07/2023 174 RADIOLOGY/OTHER STUDIES: 10/16/2023 PET scan IMPRESSION: HEAD/NECK: * No FDG avid neoplastic process. * Diffusely enlarged thyroid demonstrating heterogeneous FDG avidity with multiple large thyroid nodules measuring up to 2.9 cm. Correlate with serology and/or thyroid ultrasound for TI-RADS ultrasound criteria evaluation and decision support regarding observation versus tissue sampling. ? CHEST: * No FDG avid neoplastic process. ABDOMEN/PELVIS: * Prior RIGHT urinary bladder diverticulectomy with residual bladder wall thickening in the operative bed and extending along the urinary bladder fundus. Degree of FDG avidity is poorly assessed due to adjacent urinary bladder luminal FDG avidity. Continued attention on follow-up is recommended * No hypermetabolic abdominopelvic lymphadenopathy. * Nonspecific bilateral adrenal gland uptake, possibly physiologic or secondary to hyperplasia. Attention on follow-up. * Mild, diffuse radiotracer uptake within the prostate without discrete focal lesion. Correlate with PSA. * Ill-defined minimally FDG avid soft tissue attenuation in the LEFT inguinal region likely representing postoperative material given reported history of prior incarcerated LEFT inguinal hernia repair. Continued attention on follow-up. MUSCULOSKELETAL: * No FDG avid neoplastic process. 09/03/2023 CT urogram IMPRESSION: 1. Large diverticulum arising from the right posterior wall of the urinary bladder. There is asymmetric wall thickening and increased enhancement along the posterior and superior aspect of the bladder diverticulum. This is highly suspicious for urothelial carcinoma and can be correlated with cystoscopy if not already performed. No metastatic disease detected in the abdomen or pelvis. No upper tract urothelial filling defects detected. ASSESSMENT/PLAN: 1. 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 The patient presented in April 2023 with gross hematuria. Initial cystoscopy 08/01/2023 revealed a large diverticulum on the right bladder floor. CT urogram 09/03/2023 confirmed a large diverticulum arising from the right posterior wall of the urinary bladder. On 09/06/2023 he underwent robotic bladder diverticulectomy plus right pelvic lymph node dissection. Pathology revealed high-grade urothelial carcinoma, greatest dimension 5 cm, with invasion of the perivesical fat (T3b). 2 resected lymph nodes were negative for metastasis. PET scan 10/16/2023 revealed no evidence of metastases. Options for further management were discussed at length with the patient and his . As recommended per [facility] urology we will proceed with adjuvant cisplatin-based chemotherapy (cisplatin plus gemcitabine x 4 cycles). He will return in 10 days to start. 2. Neurogenic bladder - ICD9: 596.54, ICD10: N31.9 Acute bladder dysfunction since 2005. Previously the patient required CIC several times daily. Currently urinating without the need for catheterization. Continue management per PCP/urology. 3. Hyperlipidemia - ICD9: 272.4, ICD10: E78.5 Stable on current medications, continue per PCP. 4. Primary hypertension - ICD9: 401.9, ICD10: I10 Stable on current medications, continue per PCP. 5. Abnormal thyroid Baseline PET scan 10/16/2023 revealed diffusely enlarged thyroid demonstrating heterogeneous FDG avidity with multiple large thyroid nodules measuring up to 2.9 cm. Will discuss further evaluation including thyroid ultrasound +/- referral to ENT Faisal Dasilva MD documented in this encounter [facility] 10-16-2023 History of Present illness Narrative RADIOLOGY SERVICE PROGRESS NOTE SERVICE DATE: 10/16/2023 SERVICE TIME: 1:37 PM PATIENT IDENTITY VERIFICATION COMPLETED USING TWO (2) STANDARD IDENTIFIERS: Name and Date of confirmed by patient verbally POST EXAM PIV STATUS: Discontinued PROCEDURE TYPE: NM INJECT: PET/CT BODY SCAN. 10.7 mCi F18 FDG. No other medications given.. ADMINISTRATION TIME: 1325 PATIENT DISCHARGED TO: Ambulatory patient, left [place] department area. A Diagnostic radioactive procedure has taken place, with no further precautions necessary other than routine body substance precautions. More information regarding radiation safety can be found using this link: [email or web address] SIGNATURE: RT Hero(R) PATIENT NAME: Jolly Sierra DATE: October 16, 2023 TIME: 1:37 PM PAGER/CONTACT #: documented in this encounter [facility] 10-05-2023 History of Present illness Narrative Post Void Residual done on patient with 63 cc residual volume remaining. notified. Jessica Willett MA UNIVERSAL PROTOCOL / SAFETY CHECKLIST Procedure to be Performed: Stent extraction Sign In: A Moment of CARE was completed. Personnel directly involved with the procedure wore the appropriate PPE (Personal Protective Equipment). Patient/Surrogate Stated/Verified: PATIENT VERIFIED(optional for EMERGENT procedures): Patient name, Date of , Relevant allergies, and The intended procedure Time Out Communication: Intended patient and procedure match the source documents. Consent documented and matches the intended procedure. Sign Out: SIGN OUT (optional for EMERGENT procedures): No specimen collected. Jessica Willett MA PRE PROCEDURE ASSESSMENT- Cysto Procedure Indication: Stent Extraction Latex Allergy: No Allergies reviewed and updated. Yes Pre-Procedure Vital Signs: BP: 153/78 Pulse: 71 Heart valve replacement: No Joint replacement: No Back Office UA otained: yes PROCEDURE PREP-Cysto Patient ID with two(2)identifiers verified by: Jessica Willett MA Pre-Procedure Antibiotics: None taken at home nor prior to procedure Patient Prep: Betadine Scrub to perineum and placement of Sterile Drape. COMPLETED Anesthetic Given:10 cc 2% Lidocaine jelly Jessica Willett MA UNIVERSAL PROTOCOL / SAFETY CHECKLIST Procedure to be performed: Stent Extraction Sign in Communication: Completed Time Out: Team Confirms the Correct Patient, Correct Procedure, Correct Site and Site Marking, Correct Position (if applicable). Sign Out Discussion: Completed Jessica Willett MA POST PROCEDURE NURSE ASSESSMENT Present along with physician during procedure exam. Jessica Willett MA Instruction sheet given and reviewed and patient verbalizes understanding: yes Post-Procedure Vital Signs: BP: 13.8/73 Pulse: 82 Post Procedure Antibiotic: As Prescribed Current pain intensity is 0 on a 0-10 pain scale. Jessica Willett MA AMBULATORY PATIENT EDUCATION THE FOLLOWING WAS EVALUATED Motivation To Learn: Eager Family/Significant Other Support: Unable to assess - Family not present Cognitive Ability: Alert/Oriented Method of Instruction: Individual instruction Written instruction/Handouts The Following Influencing Factors Were Barriers To This Education Session: None The Following Physical Limitations Were Barriers To This Education Session: None Instruction Provided To: Patient Circulation Man Present: not applicable Discipline: Nursing Learning Topic: SURVIVAL SKILLS: Pain Management Symptom Management Patient Evaluation: Verbalizes understanding: Yes Supplemental Material Given: Written Material Instructed By Jessica Willett MA In Department Urology . HISTORY: Jolly Sierra is a 78 yr old male with a hx of HTN, UTI, BPH, neurogenic bladder, and HLD presenting for a hx of HG papillary urothelial carcinoma with squamous differentiation and macroscopic invasion of perivesical fat s/p partial cystectomy on 09/06/2023. Presenting for cysto stent extraction Saw Dr. Dasilva Med Onc and plan Options for further management were discussed at length with the patient and his . We elected to stage with a PET scan. Assuming he has no evidence of metastases standard of care would be adjuvant cisplatin-based chemotherapy (cisplatin plus gemcitabine x 4 cycles). Given the fact he had a diverticulectomy rather than cystectomy the addition of adjuvant radiation therapy would also be considered. Will discuss with urology. I will see the patient back in 2 weeks for follow-up. We will then discuss specific treatment options. Surgical Pathology (09/06/2023) FINAL DIAGNOSIS A. Urinary bladder, neck of diverticulum, excision: - Benign bladder mucosa and muscularis propria. B. Lymph nodes, right pelvic, regional resection: - Two lymph nodes, negative for malignancy (0/2). C. 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 - Margins are negative for tumor. Aden.Brittnee's HOPS NOTE/ UNIVERSAL PROTOCOL/ SAFETY CHECKLIST Sign In History and Physical Exam reviewed and is unchanged. Primary Diagnosis: History of bladder cancer Sign in Communication: Completed. Time Out: Immediately prior to procedure, Team confirms the correct patient, correct procedure, cystoscopy, correct site and site marking, correct position (if applicable). Sign Out: Sign out discussion: Completed. Antibiotic(s) given immediately prior to procedure: Bactrim Details of procedure: as below Urethra - Normal Prostate: Moderate lateral lobes VN: open Urothelium: Normal, no evidence of tumor, CIS stone, foreign body, diverticuli, etc. Limited visualization due to debris and murkiness of urine Trabeculation: mild Inflammation: mild Ureteral Orifices: Normal, clear efflux bilaterally Trigone: Normal Preoperative diagnosis: History of bladder cancer Postoperative diagnosis: Same Procedure: Flexible cystoscopy Surgeon: Dr. Jason Patrick Anesthesia: Lidocain urojet Procedure: The patient was taken to the cystoscopy suite and placed in the supine position. He was then prepped and draped in the usual manner. Lidocaine gel was placed per urethra for local anasthesia. Cystoscopy was then performed using a flexible cystoscope. Sterile technique was maintained throughout. Please refer to above for specific findings during this part of the procedure. After carefully and atraumatically inspecting the urethra, prostate, VN, bladder, and UO's. right ureteral stent was grasped and removed without difficulty. The cystoscope was then removed. The patient tolerated the procedure well and there were no complications. He was take for recovery in good condition. Findings: see above Complications: None EBL: None Disposition: Stent removed today. He will follow-up with oncology with a PET scan. Recommend office cystoscopy in 3 months. Recommended he catheterize himself once or twice a day to document PVRs. If they are greater than 150 I recommend he catheterize at least twice daily. Jason Will MD By signing my name below, I, Jennifer Avalos, attest that this documentation has been prepared under the direction and in the presence of Dr. Will Electronically signed, Julián Ferrara I agree with the Chief Complaint, ROS, and Past Histories independently gathered by the clinical office support assistant and the remaining scribed note accurately describes my personal service to the patient. Dr. Jason Will MD documented in this encounter [facility] 09-26-2023 History of Present illness Narrative PATIENT NAME: Jolly Sierra DATE: 09/27/2023 PRIMARY CARE PHYSICIAN: Jose J Donaldson Jr, DO OTHER PHYSICIANS: Dr. Jason Will, Dr. Antonio Gary HPI: This is a 78 year old male with recently diagnosed bladder cancer, referred for further management. The patient has a history of neurogenic bladder requiring self catheterizations since 2005. Apparently in April 2023 he developed a urinary infection with hematuria. Urine cytology was suspicious. Initial cystoscopy 08/01/2023 revealed a large diverticulum on the right bladder floor. He was referred to [facility] urology for further management (Dr. Will). CT urogram 09/03/2023 confirmed a large diverticulum arising the right posterior wall of the urinary bladder. On 09/06/2023 he underwent a robotic bladder diverticulectomy plus right pelvic lymph node dissection. Pathology revealed high-grade urothelial carcinoma, greatest dimension 5 cm, with invasion of the perivesical fat (T3b). 2 resected lymph nodes were negative for metastasis. The patient tolerated his surgery well. Since then he has been urinating without the need for catheterizations. He has had no recurrent hematuria. The patient's past medical history otherwise is given for hypertension and hyperlipidemia. On review of systems he denies any weight loss, unusual pain, or other systemic symptoms. 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 Currently and lives with his in [place]. He does not smoke. MEDICATIONS: Current Outpatient Medications Medication Sig oxybutynin ER (DITROPAN XL) 10 mg 24 hr tablet Take 1 tablet by mouth once daily as needed for up to 7 days. NEEDED FOR BLADDER SPASM - STOP THE DAY PRIOR TO CATHETER REMOVAL tamsulosin (FLOMAX) 0.4 mg Take 1 capsule by mouth daily at bedtime. ramipril (ALTACE) 10 mg capsule Take 10 mg by mouth once daily. rosuvastatin (CRESTOR) 5 mg tablet Take 5 mg by mouth once daily. spironolactone (ALDACTONE) 50 mg tablet Take 50 mg by mouth once daily. No current facility-administered medications for this visit. ALLERGIES: ALLERGIES No Known Allergies PAST MEDICAL HISTORY: PAST MEDICAL HISTORY Diagnosis Date HLD (hyperlipidemia) HTN (hypertension) Neurogenic bladder PAST SURGICAL HISTORY: PAST SURGICAL HISTORY Procedure Laterality Date PAST SURGICAL HISTORY OF 2006 bladder surgery FAMILY HISTORY: No family history on file. SOCIAL HISTORY: Social History Tobacco Use Smoking status: Never Smokeless tobacco: Never Vaping Use Vaping Use: Never used Substance Use Topics Alcohol use: Not Currently Drug use: Never COMPLETE REVIEW OF SYSTEMS: CONSTITUTION: Negative for pain, fatigue, weight loss, or appetite loss. EENT: Negative for mouth soreness, antibiotics use, epistaxis, visual problems, neck or facial swelling, fever/chills, bleeding gums, or hearing loss. CV: Negative for edema, calf swelling, palpitations, or chest pain. RESPIRATORY: Negative for cough, SOB, hemoptysis, or wheezing. GI: Negative for nausea/vomiting, heartburn, vomiting blood, dysphasia, diarrhea, blood in stool, constipation, early satiety, PICA, vegetarian, poor nutrition, abdominal fullness, or abdominal pain. NEUROLOGICAL: Negative for numbness/tingling, dizziness, gait disturbance, headache, speech disturbance, tremor, hemiparesis/sensory loss, or change in mental status. MUSCULOSKELETAL: Negative for joint pain, joint swelling, or proximal muscle weakness. SKIN: Negative for hair loss, bruising, nail changes, rash, itching, pallor, or jaundice. ENDO/URO: Negative for hot flashes, cold or heat intolerance, urinary frequency, urinary hesitancy, menorrhagia, or hematuria. PSYCH: Negative for anxiety, depression, or other. PHYSICAL EXAM: BP 125/72 Pulse 76 Temp 36.3 C (97.4 F) (Temporal) Resp 16 Ht 177.8 cm (5' 10 ) Wt 88.2 kg (194 lb 7.1 oz) SpO2 99% BMI 27.90 kg/m GENERAL EXAM: Well developed/well nourished; in no acute distress. SKIN: Negative for lesions, rashes, or ulcers on the upper and lower extremities and face. Negative for palpations/nodules, purpura, and ecchymosis. EENT: Negative for conjunctiva, mucosal pallor, JVD, LAP, thyromegaly, and glossitis. Supple & PERRL. EXTREMITIES: Negative for cyanosis, clubbing, and crepitus. LUNGS: Negative to auscultation, respiratory effort, and percussion. CARDIOVASCULAR: Regular rate. Negative for murmurs/S3S4/abnormal sounds, edema, and carotid bruits. ABDOMEN: Negative for masses, hernia, and spleen/liver abnormalities. RECTAL: Not done PSYCHIATRIC: Negative for mood/affect changes, recent & remote memory changes, and judgement and insight. NEUROLOGICAL: Alert, oriented x person, place, time. Cranial nerves 2-12 intact. Sensory for pain, light touch, vibration intact on all 4 extremities. Reflexes symmetric for biceps/brachioradial/patella/achi lles. MUSCULOSKELETAL: Negative examination of joints, bones, muscles/tendons of all four extremities for inspection, percussion, and palpation. Negative for misallignment, asymmetry, crepitation, tenderness, mass, effusions. Range of motion normal. Negative for joint instability, laxity, dislocation. Gait steady. Negative for swelling, erythema, tenderness, soft tissue swelling, and atrophy. PATHOLOGY: 09/06/2023 Robotic bladder diverticulectomy and right pelvic lymph node dissection. A. Urinary bladder, neck of diverticulum, excision: - Benign bladder mucosa and muscularis propria. B. Lymph nodes, right pelvic, regional resection: - Two lymph nodes, negative for malignancy (0/2). C. 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 - Margins are negative for tumor. LABS: Hemoglobin (g/dL) Date Value 09/07/2023 12.4 Hematocrit (%) Date Value 09/07/2023 36.3 WBC (k/uL) Date Value 09/07/2023 13.79 Platelet Count (k/uL) Date Value 09/07/2023 174 RADIOLOGY/OTHER STUDIES: 09/03/2023 CT urogram IMPRESSION: 1. Large diverticulum arising from the right posterior wall of the urinary bladder. There is asymmetric wall thickening and increased enhancement along the posterior and superior aspect of the bladder diverticulum. This is highly suspicious for urothelial carcinoma and can be correlated with cystoscopy if not already performed. No metastatic disease detected in the abdomen or pelvis. No upper tract urothelial filling defects detected. ASSESSMENT/PLAN: 1. 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 The patient presented in April 2023 with gross hematuria. Initial cystoscopy 08/01/2023 revealed a large diverticulum on the right bladder floor. CT urogram 09/03/2023 confirmed a large diverticulum arising from the right posterior wall of the urinary bladder. On 09/06/2023 he underwent robotic bladder diverticulectomy plus right pelvic lymph node dissection. Pathology revealed high-grade urothelial carcinoma, greatest dimension 5 cm, with invasion of the perivesical fat (T3b). 2 resected lymph nodes were negative for metastasis. Options for further management were discussed at length with the patient and his . We elected to stage with a PET scan. Assuming he has no evidence of metastases standard of care would be adjuvant cisplatin-based chemotherapy (cisplatin plus gemcitabine x 4 cycles). Given the fact he had a diverticulectomy rather than cystectomy the addition of adjuvant radiation therapy would also be considered. Will discuss with urology. I will see the patient back in 2 weeks for follow-up. We will then discuss specific treatment options. 2. Neurogenic bladder - ICD9: 596.54, ICD10: N31.9 Acute bladder dysfunction since 2005. Previously the patient required CIC several times daily. Currently urinating without the need for catheterization. Continue management per PCP/urology. 3. Hyperlipidemia - ICD9: 272.4, ICD10: E78.5 Stable on current medications, continue per PCP. 4. Primary hypertension - ICD9: 401.9, ICD10: I10 Stable on current medications, continue per PCP. Faisal Dasilva MD documented in this encounter [facility] 09-21-2023 Nurse Note Patient here for trial voiding. Bladder filled with 200 cc's of Sterile Water. Catheter removed. Patient was able to void. Mariajose Abreu CNP notified. Catheter: Not reinserted. Rosa Mondragon RN Post Void Residual done on patient with 72 cc residual volume remaining. notified. Rosa Mondragon RN [facility] 09-21-2023 Nurse Note Patient here for trial voiding. Bladder filled with 200 cc's of Sterile Water. Catheter removed. Patient was able to void. Mariajose Abreu CNP notified. Catheter: Not reinserted. Rosa Mondragon RN Post Void Residual done on patient with 72 cc residual volume remaining. notified. Rosa Mondragon RN documented in this encounter [facility] 09-18-2023 Telephone encounter Note I got a call from Jolly and he said he missed a call and was calling back. I imagine it was coming from [facility] for his TOV Sunday. [facility] 09-18-2023 Miscellaneous Notes I got a call from Jolly and he said he missed a call and was calling back. I imagine it was coming from [facility] for his TOV Sunday. documented in this encounter [facility] 09-13-2023 Telephone encounter Note FINAL DIAGNOSIS A. Urinary bladder, neck of diverticulum, excision: - Benign bladder mucosa and muscularis propria. B. Lymph nodes, right pelvic, regional resection: - Two lymph nodes, negative for malignancy (0/2). C. 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 - Margins are negative for tumor. Called the patient and discussed the results of his pathology report. I told him that this makes it a stage III and I recommend referral to medical oncology to discuss adjuvant therapeutic options. I will refer him to our medical oncologist in [place]. Otherwise he is recovering well. He will follow-up as scheduled. We did briefly talk about the need for prolonged surveillance of his bladder Jason Will MD [facility] 09-13-2023 Miscellaneous Notes FINAL DIAGNOSIS A. Urinary bladder, neck of diverticulum, excision: - Benign bladder mucosa and muscularis propria. B. Lymph nodes, right pelvic, regional resection: - Two lymph nodes, negative for malignancy (0/2). C. 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 - Margins are negative for tumor. Called the patient and discussed the results of his pathology report. I told him that this makes it a stage III and I recommend referral to medical oncology to discuss adjuvant therapeutic options. I will refer him to our medical oncologist in [place]. Otherwise he is recovering well. He will follow-up as scheduled. We did briefly talk about the need for prolonged surveillance of his bladder Jason Will MD documented in this encounter [facility] 09-07-2023 Telephone encounter Note Pt had 1) robotic bladder diverticulectomy [complicated] 2) robotic right pelvic lymph node dissection with Dr. Will 09/06/23 Currently inpatient Will call once discharged for post operative assessment [facility] 09-07-2023 Miscellaneous Notes Pt had 1) robotic bladder diverticulectomy [complicated] 2) robotic right pelvic lymph node dissection with Dr. Will 09/06/23 Currently inpatient Will call once discharged for post operative assessment documented in this encounter [facility] 09-03-2023 History of Present illness Narrative Radiology Service Progress Note DATE OF SERVICE: September 03, 2023 TIME: 1:29 PM PATIENT WEIGHT: 198 LBS PATIENT IDENTITY VERIFICATION COMPLETED USING TWO (2) STANDARD IDENTIFIERS: Name and Date of confirmed by patient verbally. FALL SCREENING: Has the patient had 2 falls in the last year or 1 fall with injury or currently using an Ambulatory Assistive Device (Walker, Cane, Wheelchair, Crutches, etc.)? No PATIENT GENDER DATA: Male ALLERGIES: Reviewed and unchanged CONTRAST ALLERGY: No EXAM: CT -CONTRAST INDUCED NEPHROPATHY RISK FACTORS: Patient age > 60 years CREATININE: Creatinine Date Value Ref Range Status 08/31/2023 1.09 0.73 - 1.22 mg/dL Final 08/28/2023 1.03 0.73 - 1.22 mg/dL Final Estimated Glomerular Filtration Rate Date Value Ref Range Status 08/31/2023 69 >=60 mL/min/1.73m Final Comment: Estimated Glomerular Filtration Rate (eGFR) is calculated using the 2020 CKD-EPI creatinine equation. This equation utilizes serum creatinine, sex, and age as parameters. The creatinine assay has traceable calibration to isotope dilution-mass spectrometry. Refer to KDIGO guidelines for clinical interpretation. In patients with unstable renal function, e.g. those with acute kidney injury, the eGFR may not accurately reflect actual GFR. P.O.C.T. RESULTS: N/A September 03, 2023 TREATMENT: N/A and No Hydration needed. IV SITE: Ambulatory: A peripheral IV was started in the Right antecubital site with a Angio cath: 20 gauge. and A Saline lock was inserted per protocol IV SITE APPEARANCE: Clean,Dry and Intact SIGNATURE: Cristina Umana RN PATIENT NAME: Jolly Sierra DATE: September 03, 2023 TIME: 1:29 PM documented in this encounter [facility] 08-29-2023 Telephone encounter Note Procedure: ROBOTIC LAPAROSCOPIC EXCISION BLADDER DIVERTICULUM,SINGLE OR MULTIPLE Physician: Dr. Jason Will Location: [facility]: [address] [place] [address] Date & Time: 09/06/2023 MEDICAL CLEARANCE: No CARDIAC CLEARANCE: No PRE ADMISSION TESTIN08/28/23 AT: [facility] THE FOLLOWING WAS EVALUATED Motivation To Learn: Interested Family/Significant Other Support: High - Very involved in pt care Cognitive Ability: Alert and oriented Patient Learns Best By: Individual Instruction Written Instruction - Hand-outs Verbal Instruction The Following Influencing Factors Were Barriers To This Education Session: None The Following Physical Limitations Were Barriers To This Education Session: None Instruction Provided To: Patient and Spouse MEDICATION INFORMATION ASPIRIN and ADVIL can make you more prone to bleeding after surgery. Please STOP taking these medications at least (5) days before and for (3) days after surgery or procedure. Some common medications that contain ASPIRIN or act like Aspirin are TO BE AVOIDED: This is a list of the medications you should avoid: Advill Celebrex Motrin Aggrenox Clinoril Naprosyn(naproxen) Agrylin NSAIDS Pepto-Bismol Aleve Ecotrin Persantine Cyndi-Melrose Excedrin Plaquenil Anacin Heparin Plavix Ascriptin Herbals Pletal Aspergum Ibuprofen Ticlid Lydia Indocin Trental Bextra Midol Vanquish Bufferin Gingko Biloba Vitamin E (MVI) MEDICATIONS YOU MAY SUBSTITUTE Anacin 3 Fioricet * Tylenol with codeine * Darvocet N 100 * Plenadol Percocet * Datril Sine-Aide Tylenol Excedrin PM (*Denotes prescription needed to obtain these medications) Learning Topic: Pre/Post op information Instructions reviewed for arrival time, parking and admission. Specific topics reviewed and discussed with all surgical patients include: No eating, drinking, or smoking after midnight prior to surgery. Medications as prescribed by anesthesia or the physician. Bowel Prep as indicated. None needed Review of information contained in surgical packet Pre-operative and intra-operative general activities were reviewed including: Holding Area, assessments, surgical positioning, and Family Waiting Area. Written post-operative instructions were given to the patient regarding post-op activity, pain control, symptoms to report. Post-operative instructions provided and reviewed with patient/family: ACTIVITY - No heavy lifting (>5-10 lbs), no pushing/pulling, OK to climb stairs DRIVING - No driving while taking prescription pain medication, or within 24 hours of anesthesia, OK to ride in a car. DIET - Advance diet as tolerated and as ordered by MD, drink 8 glasses of water a day, eat a diet high in protein and fiber unless otherwise directed by MD. CATHETER - Will be inserted during surgery, you may go home with a catheter. If you go home with a catheter you will have to come back to the office for a voiding trial, UTI symptoms reviewed and patient instructed to notify MD of any of these symptoms. INCISION CARE - Keep incision clean and dry, johnny to be removed 7-10 days after surgery, steristrips do not need to be removed by MD BATHING - OK to shower after surgery unless otherwise directed by MD, no tub baths. PAIN MEDICATION - IV pain medication after surgery, IV FARM CONTRACTOR if ordered by MD, discharged home with a prescription for PO pain medication, pain management after surgery, side effects of pain medication (including constipation, dizziness, drowsiness, and medication interactions). DVT PROPHYLAXIS - Early ambulation, SCDs, injectable anticoagulants (heparin, lovenox, etc) RESPIRATORY - Incentive spirometer, coughing/deep breathing exercises, ambulation. RETURN TO WORK - As directed by physician, please send any [place] papers to physician's escrow secretary. SYMPTOMS TO NOTIFY MD - Fever, chills, nausea, vomiting, increased or severe pain, heavy bleeding, foul smelling drainage, pain or swelling in extremities. URGENT SYMPTOMS - Call 911 or go to ER if any shortness of breath, difficulty breathing, or chest pain. HOW TO CONTACT PHYSICIAN - Physician's office phone number given to patient, if after hours patient instructed to call boarding machine operator and ask for the doctor cannon pinion adjuster. Patient and family have phone number to call 24 hours/day. Patient Evaluation: Verbalizes understanding Patient and/or family express understanding of upcoming surgery and the operative process. Questions answered. Follow Up Plan: Follow up as needed Supplemental Material Given: Pre-operative teaching packet provided to the patient: INPATIENT/OUTPATIENT printed instructions; Post-operative instruction sheet, bowel prep instruction sheet For questions contact: Dr. Jason Will's office at [phone] Instructed By Amarilis Oh RN [facility] 08-29-2023 Miscellaneous Notes Procedure: ROBOTIC LAPAROSCOPIC EXCISION BLADDER DIVERTICULUM,SINGLE OR MULTIPLE Physician: Dr. Jason Will Location: [facility]: [phone] Date & Time: 09/06/2023 MEDICAL CLEARANCE: No CARDIAC CLEARANCE: No PRE ADMISSION TESTIN08/28/23 AT: [facility] THE FOLLOWING WAS EVALUATED Motivation To Learn: Interested Family/Significant Other Support: High - Very involved in pt care Cognitive Ability: Alert and oriented Patient Learns Best By: Individual Instruction Written Instruction - Hand-outs Verbal Instruction The Following Influencing Factors Were Barriers To This Education Session: None The Following Physical Limitations Were Barriers To This Education Session: None Instruction Provided To: Patient and Spouse MEDICATION INFORMATION ASPIRIN and ADVIL can make you more prone to bleeding after surgery. Please STOP taking these medications at least (5) days before and for (3) days after surgery or procedure. Some common medications that contain ASPIRIN or act like Aspirin are TO BE AVOIDED: This is a list of the medications you should avoid: Advill Celebrex Motrin Aggrenox Clinoril Naprosyn(naproxen) Agrylin NSAIDS Pepto-Bismol Aleve Ecotrin Persantine Cyndi-Melrose Excedrin Plaquenil Anacin Heparin Plavix Ascriptin Herbals Pletal Aspergum Ibuprofen Ticlid Lydia Indocin Trental Bextra Midol Vanquish Bufferin Gingko Biloba Vitamin E (MVI) MEDICATIONS YOU MAY SUBSTITUTE Anacin 3 Fioricet * Tylenol with codeine * Darvocet N 100 * Plenadol Percocet * Datril Sine-Aide Tylenol Excedrin PM (*Denotes prescription needed to obtain these medications) Learning Topic: Pre/Post op information Instructions reviewed for arrival time, parking and admission. Specific topics reviewed and discussed with all surgical patients include: No eating, drinking, or smoking after midnight prior to surgery. Medications as prescribed by anesthesia or the physician. Bowel Prep as indicated. None needed Review of information contained in surgical packet Pre-operative and intra-operative general activities were reviewed including: Holding Area, assessments, surgical positioning, and Family Waiting Area. Written post-operative instructions were given to the patient regarding post-op activity, pain control, symptoms to report. Post-operative instructions provided and reviewed with patient/family: ACTIVITY - No heavy lifting (>5-10 lbs), no pushing/pulling, OK to climb stairs DRIVING - No driving while taking prescription pain medication, or within 24 hours of anesthesia, OK to ride in a car. DIET - Advance diet as tolerated and as ordered by MD, drink 8 glasses of water a day, eat a diet high in protein and fiber unless otherwise directed by MD. CATHETER - Will be inserted during surgery, you may go home with a catheter. If you go home with a catheter you will have to come back to the office for a voiding trial, UTI symptoms reviewed and patient instructed to notify MD of any of these symptoms. INCISION CARE - Keep incision clean and dry, johnny to be removed 7-10 days after surgery, steristrips do not need to be removed by MD BATHING - OK to shower after surgery unless otherwise directed by MD, no tub baths. PAIN MEDICATION - IV pain medication after surgery, IV FARM CONTRACTOR if ordered by MD, discharged home with a prescription for PO pain medication, pain management after surgery, side effects of pain medication (including constipation, dizziness, drowsiness, and medication interactions). DVT PROPHYLAXIS - Early ambulation, SCDs, injectable anticoagulants (heparin, lovenox, etc) RESPIRATORY - Incentive spirometer, coughing/deep breathing exercises, ambulation. RETURN TO WORK - As directed by physician, please send any FMLA papers to physician's escrow secretary. SYMPTOMS TO NOTIFY MD - Fever, chills, nausea, vomiting, increased or severe pain, heavy bleeding, foul smelling drainage, pain or swelling in extremities. URGENT SYMPTOMS - Call 911 or go to ER if any shortness of breath, difficulty breathing, or chest pain. HOW TO CONTACT PHYSICIAN - Physician's office phone number given to patient, if after hours patient instructed to call boarding machine operator and ask for the doctor cannon pinion adjuster. Patient and family have phone number to call 24 hours/day. Patient Evaluation: Verbalizes understanding Patient and/or family express understanding of upcoming surgery and the operative process. Questions answered. Follow Up Plan: Follow up as needed Supplemental Material Given: Pre-operative teaching packet provided to the patient: INPATIENT/OUTPATIENT printed instructions; Post-operative instruction sheet, bowel prep instruction sheet For questions contact: Dr. Jason Will's office at [phone] Instructed By Amarilis Oh RN documented in this encounter [facility] 08-28-2023 Instructions Rosi Early PA-C - 08/28/2023 11:15 AM EDT PATIENT PREOPERATIVE INSTRUCTIONS Jason Will MD has scheduled you for your procedure at this surgery center: [facility]: [phone] --[id number] [address]. Please check in on the 1st floor at registration desk 6. Please read below carefully for your personalized instructions. Dietary Restrictions: - No solid food after midnight. - You may have 12 ounces of clear liquids (water, clear juices such as apple juice or gatorade, carbonated beverages, clear tea, black coffee, jello) until 2 hours before scheduled arrival at facility. Medications: Unless instructed differently below, stay on all of your medications until your surgery. Approved medications to take the morning of surgery with a sip of water: CRESTOR HOLD RAMIPRIL FOR 24 HOURS PRIOR TO PROCEDURE If you start any new medications after today's visit, please contact the surgeon's office. Blood Thinning Medications: - Stop NSAIDS (Ibuprofen, Advil, Aleve, Motrin, Celebrex, Mobic, etc.) 7 days before surgery, as directed by your surgeon. - Stop Aspirin 7 days before surgery, as directed by your surgeon. - Stop Vitamin E, ALL multi-vitamins, herbals and dietary supplements 7 days before surgery. - You may take Tylenol (Acetaminophen) or any of your pain medications that do not contain aspirin or NSAIDS as needed. Important Reminders: - Candy, mints, and tobacco products are NOT permitted the morning of surgery. - Hearing aids, dentures and glasses may be worn the morning of surgery. - NO jewelry, body piercings, makeup, hairpins or contacts are to be worn the day of surgery. If you develop symptoms such as a fever, cold, or flu, or have other changes to your health within TWO DAYS of scheduled surgery or the morning of surgery, please contact the surgery center above. Personal Belongings: -Please have photo ID and insurance cards. -If you do not have a copy of advance directives on file with us, please bring a copy with you on the day of surgery. - Leave ALL valuables and money at home or with family members. For Outpatient Procedures: - YOU MUST HAVE A RESPONSIBLE DRAFTER STRUCTURAL TAKE YOU HOME. A CELLAR SUPERVISOR OR HARDWARE DESIGN ENGINEER CANNOT BE MADE A RESPONSIBLE DRAFTER STRUCTURAL. - We recommend that a responsible person stays with you overnight to take care of you. - You cannot stay in a hotel alone after outpatient surgery. You will not be permitted to have your surgery, if you do not have someone to take care of you. Arrival Time for Surgery: - The Surgery Center or hospital where you are having surgery will call the afternoon before surgery (or Sunday for Sunday surgery) with a scheduled arrival time. - If you have not heard by 4 pm, please contact the surgery center above. Please be aware that emergency situations arise, which may delay or change your surgical time. If this happens, we will notify you as soon as possible and regret any inconvenience. If you already have an Advance Directive, please fax a copy to [phone] or email to for it to be added to your chart. If you do not have an Advance Directive, you can find the appropriate form and more information at [email or web address]. We recommend that you complete the Advance Directive form found on the website and bring it with you the day of your surgery. It can be witnessed and scanned into your chart that day. documented in this encounter [facility] 08-28-2023 History and physical note Images from the original note were not included. HISTORY AND PHYSICAL EXAMINATION SERVICE DATE: 08/28/2023 SERVICE TIME: 12:05 PM PRIMARY CARE PHYSICIAN: No primary care provider on file. REASON FOR VISIT: Jolly Sierra is a 78 year old male who is scheduled for ROBOTIC LAPAROSCOPIC EXCISION BLADDER DIVERTICULUM,SINGLE OR MULTIPLE at the request of for consultation. My final recommendation will be communicated back to the requesting physician by way of shared medical record or letter. The patient has the following: ACTIVE PROBLEM LIST Htn (Hypertension) Hld (Hyperlipidemia) Neurogenic Bladder Lesion of Bladder Subjective CHIEF COMPLAINT: Pre-op exam HPI: Patient is a 78 year old male here for PACC. Patient with history of neurogenic bladder self caths 3-4 x/day x 17 years. 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 Patient has been recommended for procedure listed above; electing to proceed. PAST MEDICAL HISTORY Diagnosis Date HLD (hyperlipidemia) HTN (hypertension) PAST SURGICAL HISTORY Procedure Laterality Date PAST SURGICAL HISTORY OF 2005 bladder surgery History reviewed. No pertinent family history. SOCIAL HISTORY: Social History Tobacco Use Smoking status: Never Smokeless tobacco: Never Vaping Use Vaping Use: Never used Substance Use Topics Alcohol use: Not Currently Drug use: Never MEDICATIONS: Prior to Admission medications as of 08/28/23 1230 Medication Sig Last Dose Taking ramipril (ALTACE) 10 mg capsule Take 10 mg by mouth once daily. Taking Yes rosuvastatin (CRESTOR) 5 mg tablet Take 5 mg by mouth once daily. Taking Yes spironolactone (ALDACTONE) 50 mg tablet Take 50 mg by mouth once daily. Taking Yes No medication comments found. CURRENT ALLERGIES: ALLERGIES No Known Allergies Covid Immunization Dates Covid-19 Vaccine (Series Information) Completed 02/19/2023 Outside Immunization: COVID-19, mRNA, LNP-S, PF, derik-sucrose, 30 mcg/0.3 mL 02/01/2022 Outside Immunization: COVID-19, mRNA, LNP-S, bivalent, PF, 30 mcg/0.3 mL dose 08/22/2021 Outside Immunization: COVID-19, mRNA, LNP-S, PF, 30 mcg/0.3 mL dose, derik-sucrose 02/01/2021 Outside Immunization: COVID-19, mRNA, LNP-S, PF, 30 mcg/0.3 mL dose 06/28/2020 Outside Immunization: COVID-19, mRNA, LNP-S, PF, 30 mcg/0.3 mL dose Only the first 5 history entries have been loaded, but more history exists. REVIEW OF SYSTEMS: General: No weight loss, malaise or fevers. Neuro: No history of TIA's, stroke, EXPLOSION WELDER tumor, impaired sensorium, hemiplegia, paraplegia or quadraplegia. No neurological symptoms or problems. Respiratory: No history of current cough or dyspnea, or pneumonia in the past 6 weeks. No history of respiratory/pulmonary symptoms or problems. Cardiovascular: Positive for: HLD, Hypertension, Negative for Arrhythmia, CAD, Chest Pain, Valvular Heart Disease, DVT/PE GI: No history of GI symptoms or problems. No history of esophageal varices, recent ascites, or ETOH greater than 2 drinks per day. : See HPI Endocrine: No history of diabetes. Has not taken steroids within the past 30 days. No history of endocrinological symptoms or problems. Hematology: No history of bleeding or clotting disorder. Pt is not taking anti-coagulation or platelet medications. No history of hematological symptoms or problems. Oncology: No history of CA metastasis, chemo within 30 days, or radiotherapy within 90 days. Has not lost 10% of body wt in 6 months. No history of oncological symptoms or problems. Psych: No history of psychiatric symptoms or problems. Musculoskeletal: Negative for joint pain or swelling, back pain or muscle pain. Skin: Negative for lesions, rash and itching. Objective PHYSICAL EXAM: VITALS: BP 148/67 Pulse 65 Temp (Src) 97.7 (Temporal) Resp 16 Ht 5' 10 (1.78m) Wt 198 lb 6.6 oz (90.0kg) SpO2 99% BMI 28.47 kg/(m^2). General: Alert and oriented Skin: Normal color, no rash, no lesions. HEENT: EOM, pupils equal, round and reactive. Cardiovascular: Normal S1 & S2, no rubs, murmurs or gallops. No JVD. Pulse regular. Lungs: Normal breath sounds, no wheezes or crackles. Abdomen: Soft, non-tender, no rigidity. Extremities: No deformity, no edema or tenderness, no joint swelling or clubbing. Neurological: Normal cognition and motor skills. Pulses: Carotid and radial pulses normal +2. Diagnostic tests reviewed for today's visit: Labs pending 08/28/2023 EKG completed in office today Date: 08/28/2023 Preliminary result: Sinus bradycardia with sinus arrhythmia with 1st degree AV block Assessment/Plan HTN (hypertension) Assessment: managed with medication, stable HLD (hyperlipidemia) Assessment: on statin therapy Neurogenic bladder Assessment: neurogenic bladder, self catheterization 3-4 x/ day x 17 years Lesion of bladder Assessment: scheduled for surgery September 06, 2023 METS: Walk a block or two on level ground (2.75 METs) Climb a flight of stairs or walk up a hill (5.50 METs) Patient denies any chest pain or undue shortness of breath with the above physical activity. ANESTHESIA FINDINGS: Intubation History: No history of difficult intubation Significant Anesthesia Considerations: None Airway Exam: General: Normal appearance Mallampati Score is CLASS II ULBT: Class II - Lower incisors can bite the upper lip below the nathanael line Neck: Normal appearance and function, Distance from hyoid to mentum during neck extension is at least 3 finger breaths Mouth: Normal tongue size and Mouth opening greater than 2 finger breaths Dentition: Intact and Caps/crowns Airway History: No abnormal airway history STOP BANG Score: Criteria: Snoring Hypertension Age over 50 (78 year old) Male gender Score = 4 PLAN This patient is optimally prepared for surgery pending LABS AND UC. CONSULTS: Patient does not require consults for optimization at this time. The Following Tests/Procedures Have Been Initiated: Labs and UC ordered by surgeon, patient to have completed 08/28/2023 Planned Anesthetic: Per anesthesia choice Instructions Given to Patient: Instructions located in the after visit summary. Patient given verbal and written preop instructions and voices comprehension and compliance. SIGNATURE: Rosi Early PA-C PATIENT NAME: Jolly Sierra DATE: 08/28/2023 TIME: 12:06 PM [facility] 08-28-2023 History and physical note Images from the original note were not included. HISTORY AND PHYSICAL EXAMINATION SERVICE DATE: 08/28/2023 SERVICE TIME: 12:05 PM PRIMARY CARE PHYSICIAN: No primary care provider on file. REASON FOR VISIT: Jolly Sierra is a 78 year old male who is scheduled for ROBOTIC LAPAROSCOPIC EXCISION BLADDER DIVERTICULUM,SINGLE OR MULTIPLE at the request of for consultation. My final recommendation will be communicated back to the requesting physician by way of shared medical record or letter. The patient has the following: ACTIVE PROBLEM LIST Htn (Hypertension) Hld (Hyperlipidemia) Neurogenic Bladder Lesion of Bladder Subjective CHIEF COMPLAINT: Pre-op exam HPI: Patient is a 78 year old male here for PACC. Patient with history of neurogenic bladder self caths 3-4 x/day x 17 years. 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 Patient has been recommended for procedure listed above; electing to proceed. PAST MEDICAL HISTORY Diagnosis Date HLD (hyperlipidemia) HTN (hypertension) PAST SURGICAL HISTORY Procedure Laterality Date PAST SURGICAL HISTORY OF 2005 bladder surgery History reviewed. No pertinent family history. SOCIAL HISTORY: Social History Tobacco Use Smoking status: Never Smokeless tobacco: Never Vaping Use Vaping Use: Never used Substance Use Topics Alcohol use: Not Currently Drug use: Never MEDICATIONS: Prior to Admission medications as of 08/28/23 1230 Medication Sig Last Dose Taking ramipril (ALTACE) 10 mg capsule Take 10 mg by mouth once daily. Taking Yes rosuvastatin (CRESTOR) 5 mg tablet Take 5 mg by mouth once daily. Taking Yes spironolactone (ALDACTONE) 50 mg tablet Take 50 mg by mouth once daily. Taking Yes No medication comments found. CURRENT ALLERGIES: ALLERGIES No Known Allergies Covid Immunization Dates Covid-19 Vaccine (Series Information) Completed 02/19/2023 Outside Immunization: COVID-19, mRNA, LNP-S, PF, derik-sucrose, 30 mcg/0.3 mL 02/01/2022 Outside Immunization: COVID-19, mRNA, LNP-S, bivalent, PF, 30 mcg/0.3 mL dose 08/22/2021 Outside Immunization: COVID-19, mRNA, LNP-S, PF, 30 mcg/0.3 mL dose, derik-sucrose 02/01/2021 Outside Immunization: COVID-19, mRNA, LNP-S, PF, 30 mcg/0.3 mL dose 06/28/2020 Outside Immunization: COVID-19, mRNA, LNP-S, PF, 30 mcg/0.3 mL dose Only the first 5 history entries have been loaded, but more history exists. REVIEW OF SYSTEMS: General: No weight loss, malaise or fevers. Neuro: No history of TIA's, stroke, EXPLOSION WELDER tumor, impaired sensorium, hemiplegia, paraplegia or quadraplegia. No neurological symptoms or problems. Respiratory: No history of current cough or dyspnea, or pneumonia in the past 6 weeks. No history of respiratory/pulmonary symptoms or problems. Cardiovascular: Positive for: HLD, Hypertension, Negative for Arrhythmia, CAD, Chest Pain, Valvular Heart Disease, DVT/PE GI: No history of GI symptoms or problems. No history of esophageal varices, recent ascites, or ETOH greater than 2 drinks per day. : See HPI Endocrine: No history of diabetes. Has not taken steroids within the past 30 days. No history of endocrinological symptoms or problems. Hematology: No history of bleeding or clotting disorder. Pt is not taking anti-coagulation or platelet medications. No history of hematological symptoms or problems. Oncology: No history of CA metastasis, chemo within 30 days, or radiotherapy within 90 days. Has not lost 10% of body wt in 6 months. No history of oncological symptoms or problems. Psych: No history of psychiatric symptoms or problems. Musculoskeletal: Negative for joint pain or swelling, back pain or muscle pain. Skin: Negative for lesions, rash and itching. Objective PHYSICAL EXAM: VITALS: BP 148/67 Pulse 65 Temp (Src) 97.7 (Temporal) Resp 16 Ht 5' 10 (1.78m) Wt 198 lb 6.6 oz (90.0kg) SpO2 99% BMI 28.47 kg/(m^2). General: Alert and oriented Skin: Normal color, no rash, no lesions. HEENT: EOM, pupils equal, round and reactive. Cardiovascular: Normal S1 & S2, no rubs, murmurs or gallops. No JVD. Pulse regular. Lungs: Normal breath sounds, no wheezes or crackles. Abdomen: Soft, non-tender, no rigidity. Extremities: No deformity, no edema or tenderness, no joint swelling or clubbing. Neurological: Normal cognition and motor skills. Pulses: Carotid and radial pulses normal +2. Diagnostic tests reviewed for today's visit: Labs pending 08/28/2023 EKG completed in office today Date: 08/28/2023 Preliminary result: Sinus bradycardia with sinus arrhythmia with 1st degree AV block Assessment/Plan HTN (hypertension) Assessment: managed with medication, stable HLD (hyperlipidemia) Assessment: on statin therapy Neurogenic bladder Assessment: neurogenic bladder, self catheterization 3-4 x/ day x 17 years Lesion of bladder Assessment: scheduled for surgery September 06, 2023 METS: Walk a block or two on level ground (2.75 METs) Climb a flight of stairs or walk up a hill (5.50 METs) Patient denies any chest pain or undue shortness of breath with the above physical activity. ANESTHESIA FINDINGS: Intubation History: No history of difficult intubation Significant Anesthesia Considerations: None Airway Exam: General: Normal appearance Mallampati Score is CLASS II ULBT: Class II - Lower incisors can bite the upper lip below the nathanael line Neck: Normal appearance and function, Distance from hyoid to mentum during neck extension is at least 3 finger breaths Mouth: Normal tongue size and Mouth opening greater than 2 finger breaths Dentition: Intact and Caps/crowns Airway History: No abnormal airway history STOP BANG Score: Criteria: Snoring Hypertension Age over 50 (78 year old) Male gender Score = 4 PLAN This patient is optimally prepared for surgery pending LABS AND UC. CONSULTS: Patient does not require consults for optimization at this time. The Following Tests/Procedures Have Been Initiated: Labs and UC ordered by surgeon, patient to have completed 08/28/2023 Planned Anesthetic: Per anesthesia choice Instructions Given to Patient: Instructions located in the after visit summary. Patient given verbal and written preop instructions and voices comprehension and compliance. SIGNATURE: Rosi Early PA-C PATIENT NAME: Jolly Sierra DATE: 08/28/2023 TIME: 12:06 PM documented in this encounter [facility] 08-27-2023 Telephone encounter Note Patient was called and agreed to surgery: ROBOTIC LAPAROSCOPIC EXCISION BLADDER DIVERTICULUM,SINGLE OR MULTIPLE with Jason Will MD on 09/06/2023 PACC scheduled on 08/28/23 Adrianna Packet mailed out to patient home. [facility] Work Phone: 08-27-2023 Miscellaneous Notes Patient was called and agreed to surgery: ROBOTIC LAPAROSCOPIC EXCISION BLADDER DIVERTICULUM,SINGLE OR MULTIPLE with Jason Will MD on 09/06/2023 PACC scheduled on 08/28/23 Adrianna Packet mailed out to patient home. documented in this encounter [facility] 08-24-2023 History of Present illness Narrative [facility] NEW PATIENT HISTORY AND PHYSICAL EXAM PATIENT INFO: Jolly Sierra 78 year old REFERRING M.D.: No referring provider defined for this encounter. CHIEF COMPLAINT: Bladder tumor HISTORY: Jolly Sierra is a 78 yr old male with a hx of HTN, UTI, BPH, neurogenic bladder, and HLD presenting for bladder lesions presenting for surgical discussion. Has a neurogenic bladder on CIC 4x per day for4 17 yrs. Cysto 08/01/2023: bilobar obstruction, large diverticulum on the R floor and within the tic are several 1-2 cm bladder tumors LABS No results found for: PSA No results found for: CREAT No past medical history on file. No past surgical history on file. REVIEW OF SYSTEMS: (positive in bold) GENERAL: Recent weight gain/loss, fatigue, weakness, fever, night sweats MUSCLE/JOINTS/BONE: Back pain, joint pain, joint swelling CARDIOVASCULAR: Chest pain, heart attack GASTROINTESTINAL: Abdominal pain, fecal incontinence HEAD & NECK: Blurry vision, double vision, cataracts, loss of vision, dryness NEUROLOGIC: Numbness, tingling SKIN: Redness, rash, nodules/bumps, hair loss, color change in hands or feet RESPIRATORY: Cough, shortness of breath ENDOCRINE: Diabetes, thyroid problems THROAT: Frequent sore throats, hoarseness PHYSICAL EXAM: Constitutional: Well-nourished, No physical deformities. Normally developed. Good grooming. Neck: Neck symmetrical, not swollen, Normal tracheal position. Eyes: Normal conjunctivae, normal eyelids. Ears, Nose, Mouth, and Throat: Left ear no scars, no lesions, no masses. Right ear no scars, no lesions, no masses. Nose no scars, no lesions, no eliot. Normal hearing. Normal lips. Respiratory: NL effort, no retraction or pursed-lip breathing Cardiovascular: Normal temperature, normal extremity pulses, no swelling, no varicosities. Skin: No paleness, no jaundice, no cyanosis. No lesion, no ulcer, no rash Lymphatic: No enlargement of neck, axillae, groin. Neurologic/Psychiatric: Oriented to time, oriented to place, oriented to person. No depression, no anxiety, no agitation. Musculosckeletal: Normal gait and station of head and neck Extremities: Extremities normal, no deformities, edema, clubbing or skin discoloration Abdomen: Normal abdominal exam, Abdomen soft, non-tender. Bowel sounds normal. No masses, organomegaly IMPRESSION: Jolly Sierra is a 78 yr old male with a hx of HTN, UTI, BPH, neurogenic bladder, and HLD presenting for bladder lesions presenting for surgical discussion. Has a neurogenic bladder on CIC 3-4x per day for4 17 yrs. He reports and infection on 04/15/2023 with gross hematuria. Was started on abx afterwards. On 04/23/2023 he was still having small amounts of blood in the urine. Was having dark gross hematuria in June. Had a cystoscopy Uses a 14 fr pocket coude catheter for CIC. Is having difficulty with self catheterization now and is only able to self-cath 1-2x per day. Prior left inguinal incarcerated hernia repair. Discussed robotic diverticulectomy/partial cystectomy. Reviewed the risks, benefits, and alternatives today. Addressed all questions and concerns. The risks benefits and alternatives of a robotic diverticulectomy/partial cystectomy were discussed with the patient. These include but are not limited to bleeding, infection, bladder perforation, need for additional procedures, need for blood transfusions, need for prolonged catheterization or admission to the hospital. We talked about possible need for adjuvant treatment, either intravesical or additional procedures after pathology results become available. PLAN: Will plan for robotic diverticulectomy/partial cystectomy, possible lymph node dissection and any other indicated urologic procedure on September 05. CT Urogram ordered I recommended a urine cytology but the patient was unable to provide a sample because he is having trouble catheterizing himself. By signing my name below, I, Jennifer Avalos, attest that this documentation has been prepared under the direction and in the presence of Dr. Will Electronically signed, Julián Ferrara I agree with the Chief Complaint, ROS, and Past Histories independently gathered by the clinical office support assistant and the remaining scribed note accurately describes my personal service to the patient. Dr. Jason Will MD New Patient is sent as a consult from Dr. Toby Gary for my opinion regarding bladder tumor. My final recommendations will be communicated back to the requesting physician by way of Medical Record. documented in this encounter [facility] 08-06-2023 Miscellaneous Notes Patient coming in Sunday11/05/23 for follow up treatment. Please add lab orders. Thanks. Anni Perez MA documented in this encounter [facility] 08-01-2023 Hospital Discharge instructions Patient Education 08/01/2023 13:05:22 Clean Intermittent Catheterization, Male Clean Intermittent Catheterization, Male Clean intermittent catheterization (CIC) is a procedure to remove urine from the bladder by placing a small, flexible tube (catheter) into the bladder though the urethra. The urethra is a tube in the body that carries urine from the bladder out of the body. CIC may be done when: You cannot completely empty your bladder on your own. This may be due to a blockage in the bladder or urethra. Your bladder leaks urine. This may happen when the muscles or nerves near the bladder are not working normally, so the bladder overflows. Your health care provider will show you how to perform CIC and will help you to become comfortable performing this procedure at home. Your health care provider will also help you to get the home care supplies that are needed for this procedure. Supplies needed: Germ-free (sterile), water-based lubricant. A container for urine collection. You may also use the toilet to dispose of urine from the catheter. A catheter. Your health care provider will determine the best size for you. ?Use this catheter size: Clean gloves. Soap and water. Towel. How to perform this procedure: Most people need CIC at least 4 times per day to adequately empty the bladder. Your health care provider will tell you how often you should perform CIC. Number of times per day to perform CIC: ____ To perform CIC, follow these steps: 1.Wash your hands with soap and water. 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 2.Clean your penis with soap and water. Dry the tip of your penis completely. 3.Prepare the supplies that you will use during the procedure. Open the catheter package and lubricant. 4.Get in a comfortable position. Possible positions include: Sitting on a toilet, a chair, or the edge of a bed. Standing near a toilet. Lying down with your head raised on pillows and your knees pointing to the ceiling. You may wish to place a waterproof mat or pad under you. 5.If you are using a urine collection container, position it between your legs. 6.Urinate, if you are able. 7.Put on gloves. 8.Apply lubricant to about 2 inches (5 cm) of the tip of the catheter. 9.Set the catheter down on a clean, dry surface within reach. 10.Gently stretch your penis out from your body. Pull back any skin that covers the end of your penis (foreskin). Clean the end of your penis with medicated sterile swabs as told by your health care provider. 11.Hold your penis upward at a 45 60 degree angle. This helps to straighten the urethra. 12.Slowly insert the lubricated catheter straight into your urethra until urine flows freely. This is usually about 6 8 inches (15 20 cm). 13.When urine starts to flow freely, insert the catheter 1 inch (3 cm) more. Allow urine to drain into the toilet or the urine collection container. 14.When urine stops flowing, slowly remove the catheter. 15.Note the color, amount, and odor of the urine. 16.Measure your urine and note the amount, if told by your health care provider. 17.Discard the urine in the toilet. 18.Clean your penis using soap and water. 19.Move the foreskin back in place, if applicable. 20.If you are using a single-use catheter, discard the catheter and supplies. 21.Wash your hands with soap and water. 22.If you are using a reusable catheter, follow package instructions about how to clean the catheter after each use. How often should I perform this procedure? Do CIC to empty your bladder every 4 6 hours or as often as told by your health care provider. If you have symptoms of too much urine in your bladder (overdistension) and you are not able to urinate, perform CIC. Symptoms of overdistension may include: ?Restlessness. ?Sweating or chills. ?Headache. ?Flushed or pale skin. ?Bloated lower abdomen. What are the risks? Generally, this is a safe procedure, however problems may occur, including: Infection. Injury to the urethra. Irritation of the urethra. Follow these instructions at home General instructions Drink enough fluid to keep your urine pale yellow. Dispose of a multiple use catheter when it becomes dry, brittle, or cloudy. This usually happens after you use the catheter for 1 week. Avoid caffeine. Caffeine may make you need to urinate more frequently and more urgently. When traveling, bring extra supplies with you in case of delays. Keep supplies with you in a place that you can access easily. If traveling by plane: ?Make sure that the lubricant in your carry-on bag is less than 3.4 ounces (100 mL). ?Use a single-use catheter. It may be difficult to clean a reusable catheter in a small bathroom. Take atwl-yvh-crlishy and prescription medicines only as told by your health care provider. Keep all follow-up visits as told by your health care provider. This is important. Contact a health care provider if you: Have difficulty performing CIC. Have urine leaking during CIC. Have: ?Dark or cloudy urine. ?Blood in your urine or in your catheter. ?A change in the smell of your urine or discharge. ?A burning feeling while you urinate. Feel nauseous or you vomit. Have pain in your abdomen, your back, or your sides below your ribs. Have swelling or redness around the opening of your urethra. Develop a rash or sores on your skin. Get help right away if you have: A fever. Symptoms that do not go away after 3 days. Symptoms that suddenly get worse. Severe pain. A decrease in the amount of urine that drains from your bladder. Summary Clean intermittent catheterization (CIC) is a procedure to remove urine from the bladder by placing a small, flexible tube (catheter) into the bladder though the urethra. Your health care provider will show you how to perform CIC and will help you to become comfortable performing this procedure at home. Most people need CIC at least 4 times per day to adequately empty the bladder. This information is not intended to replace advice given to you by your health care provider. Make sure you discuss any questions you have with your health care provider. Document Revised: 02/27/2022 Document Reviewed: 02/27/2022 Adhysteria Patient Education 2022 [employer]. Follow Up Care 07/30/2023 08:07:25 With:ABDIRAHMAN NORWOOD, Antonio Villeda, URL Address: [facility] [address] , [place] [address]- When: Unknown [facility] 08-01-2023 Evaluation + Plan note Diagnostic Tests Pending[facility]Vys[facility] Fish and Urine Cyto ([facility]) 08/01/23 [facility] 08-07-2022 Hospital Discharge instructions Patient Education 08/07/2022 08:52:25 Clean Intermittent Catheterization, Male Clean Intermittent Catheterization, Male Clean intermittent catheterization (CIC) is a procedure to remove urine from the bladder by placing a small, flexible tube (catheter) into the bladder though the urethra. The urethra is a tube in the body that carries urine from the bladder out of the body. CIC may be done when: You cannot completely empty your bladder on your own. This may be due to a blockage in the bladder or urethra. Your bladder leaks urine. This may happen when the muscles or nerves near the bladder are not working normally, so the bladder overflows. Your health care provider will show you how to perform CIC and will help you to become comfortable performing this procedure at home. Your health care provider will also help you to get the home care supplies that are needed for this procedure. Supplies needed: Germ-free (sterile), water-based lubricant. A container for urine collection. You may also use the toilet to dispose of urine from the catheter. A catheter. Your health care provider will determine the best size for you. ?Use this catheter size: Sterile gloves. Sterile gauze. Medicated sterile swabs. How to perform this procedure: Most people need CIC at least 4 times per day to adequately empty the bladder. Your health care provider will tell you how often you should perform CIC. Number of times per day to perform CIC: ____ To perform CIC, follow these steps: 1.Wash your hands with soap and water. 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 2.Prepare the supplies that you will use during the procedure. Open the catheter pack, the lubricant, and the pack of medicated sterile swabs. If you have been told to keep the procedure sterile, do not touch your supplies until you are wearing gloves. 3.Get in a comfortable position. Possible positions include: Sitting on a toilet, a chair, or the edge of a bed. Standing near a toilet. Lying down with your head raised on pillows and your knees pointing to the ceiling. You may wish to place a waterproof mat or pad under you. 4.If you are using a urine collection container, position it between your legs. 5.Urinate, if you are able. 6.Put on gloves. 7.Apply lubricant to about 2 inches (5 cm) of the tip of the catheter. 8.Set the catheter down on a clean, dry surface within reach. 9.Gently stretch your penis out from your body. Pull back any skin that covers the end of your penis (foreskin). Clean the end of your penis with medicated sterile swabs as told by your health care provider. 10.Hold your penis upward at a 45 60 degree angle. This helps to straighten the urethra. 11.Slowly insert the lubricated catheter straight into your urethra until urine flows freely. This is usually about 6 8 inches (15 20 cm). 12.When urine starts to flow freely, insert the catheter 1 inch (3 cm) more. Allow urine to drain into the toilet or the urine collection container. 13.When urine stops flowing, slowly remove the catheter. 14.Note the color, amount, and odor of the urine. 15.Measure your urine and note the amount, if told by your health care provider. 16.Discard the urine in the toilet. 17.Clean your penis using soap and water. 18.Move the foreskin back in place, if applicable. 19.If you are using a single-use catheter, discard the catheter and supplies. 20.Wash your hands with soap and water. 21.If you are using a reusable catheter, follow package instructions about how to clean the catheter after each use. How often should I perform this procedure? Do CIC to empty your bladder every 4 6 hours or as often as told by your health care provider. If you have symptoms of too much urine in your bladder (overdistension) and you are not able to urinate, perform CIC. Symptoms of overdistension may include: ?Restlessness. ?Sweating or chills. ?Headache. ?Flushed or pale skin. ?Bloated lower abdomen. What are the risks? Generally, this is a safe procedure, however problems may occur, including: Infection. Injury to the urethra. Irritation of the urethra. Follow these instructions at home General instructions Drink enough fluid to keep your urine pale yellow. Dispose of a multiple use catheter when it becomes dry, brittle, or cloudy. This usually happens after you use the catheter for 1 week. Avoid caffeine. Caffeine may make you need to urinate more frequently and more urgently. When traveling, bring extra supplies with you in case of delays. Keep supplies with you in a place that you can access easily. If traveling by plane: ?Make sure that the lubricant in your carry-on bag is less than 3.4 ounces (100 mL). ?Use a single-use catheter. It may be difficult to clean a reusable catheter in a small bathroom. Take [id number] and prescription medicines only as told by your health care provider. Keep all follow-up visits as told by your health care provider. This is important. Contact a health care provider if you: Have difficulty performing CIC. Have urine leaking during CIC. Have: ?Dark or cloudy urine. ?Blood in your urine or in your catheter. ?A change in the smell of your urine or discharge. ?A burning feeling while you urinate. Feel nauseous or you vomit. Have pain in your abdomen, your back, or your sides below your ribs. Have swelling or redness around the opening of your urethra. Develop a rash or sores on your skin. Get help right away if you have: A fever. Symptoms that do not go away after 3 days. Symptoms that suddenly get worse. Severe pain. A decrease in the amount of urine that drains from your bladder. Summary Clean intermittent catheterization (CIC) is a procedure to remove urine from the bladder by placing a small, flexible tube (catheter) into the bladder though the urethra. Your health care provider will show you how to perform CIC and will help you to become comfortable performing this procedure at home. Most people need CIC at least 4 times per day to adequately empty the bladder. This information is not intended to replace advice given to you by your health care provider. Make sure you discuss any questions you have with your health care provider. Document Released: 05/26/2011 Document Revised: 08/13/2019 Document Reviewed: 12/12/2018 [employer] Patient Education 2020 [employer]. 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 [facility] Malignant neoplasm of overlapping sites of bladder (HCC)- Primary Malignant neoplasm of other specified sites of bladder Neoplasm of bladder Neoplasm of unspecified nature of bladder Abnormal coagulation profile Abnormal urine levels of substances chiefly nonmedicinal as to source Nonspecific abnormal toxicological findings [facility]* Diagnosis Preoperative clearance- Primary Preoperative examination, unspecified Neurogenic bladder Neurogenic bladder, NOS Lesion of bladder Unspecified disorder of bladder Neoplasm of bladder Neoplasm of unspecified nature of bladder * Assessment & Plan Note - Rosi Early PA-C - 08/28/2023 12:30 PM EDT Associated Problem(s): Lesion of bladder Assessment: scheduled for surgery September 06, 2023 * Assessment & Plan Note - Rosi Early PA-C - 08/28/2023 12:29 PM EDT Associated Problem(s): Neurogenic bladder Assessment: neurogenic bladder, self catheterization 3-4 x/ day x 17 years * Assessment & Plan Note - Rosi Early PA-C - 08/28/2023 12:09 PM EDT Associated Problem(s): HLD (hyperlipidemia) Assessment: on statin therapy * Assessment & Plan Note - Rosi Early PA-C - 08/28/2023 12:09 PM EDT Associated Problem(s): HTN (hypertension) Assessment: managed with medication, stable [facility] Diagnosis Bacteriuria- Primary Other nonspecific finding on examination of urine Neoplasm of bladder Neoplasm of unspecified nature of bladder documented [facility]* Diagnosis Malignant neoplasm of urinary bladder, unspecified site (HCC) Neoplasm of bladder Neoplasm of unspecified nature of bladder documented [facility]* Diagnosis Malignant neoplasm of overlapping sites of bladder (HCC)- Primary Malignant neoplasm of other specified sites of bladder [facility] Diagnosis Malignant neoplasm of urinary bladder, unspecified site (HCC)- [facility] Diagnosis Malignant neoplasm of overlapping sites of bladder (HCC)- Primary Malignant neoplasm of other specified sites of bladder Neurogenic bladder Neurogenic bladder, NOS [facility] Diagnosis Acute cystitis without hematuria- Primary Acute cystitis Screening for nephropathy [facility] Diagnosis Malignant neoplasm of overlapping sites of bladder (HCC)- Primary Malignant neoplasm of other specified sites of bladder Neurogenic bladder Neurogenic bladder, NOS Abnormal imaging of thyroid [facility] Diagnosis Malignant neoplasm of overlapping sites of bladder (HCC)- Primary Malignant neoplasm of other specified sites of bladder [facility] Diagnosis Malignant neoplasm of overlapping sites of bladder (HCC)- Primary Malignant neoplasm of other specified sites of bladder [facility] Diagnosis Malignant neoplasm of overlapping sites of bladder (HCC)- Primary Malignant neoplasm of other specified sites of bladder [facility] Diagnosis Malignant neoplasm of overlapping sites of bladder (HCC)- Primary Malignant neoplasm of other specified sites of bladder [facility] Diagnosis Malignant neoplasm of overlapping sites of bladder (HCC)- Primary Malignant neoplasm of other specified sites of bladder Neurogenic bladder Neurogenic bladder, NOS [facility] Diagnosis Malignant neoplasm of overlapping sites of bladder (HCC)- Primary Malignant neoplasm of other specified sites of bladder [facility] Diagnosis Malignant neoplasm of overlapping sites of bladder (HCC)- Primary Malignant neoplasm of other specified sites of bladder Neurogenic bladder Neurogenic bladder, NOS [facility] Diagnosis Malignant neoplasm of overlapping sites of bladder (HCC)- Primary Malignant neoplasm of other specified sites of bladder Swelling of joint of upper arm, right Swelling of arm Swelling of limb Anemia, unspecified type [facility] Diagnosis Malignant neoplasm of overlapping sites of bladder (HCC)- Primary Malignant neoplasm of other specified sites of bladder [facility]* Diagnosis Preoperative clearance- Primary Preoperative examination, unspecified Neurogenic bladder Neurogenic bladder, NOS Lesion of bladder Unspecified disorder of bladder Malignant neoplasm of overlapping sites of bladder (HCC)- Primary Malignant neoplasm of other specified sites of bladder documented [facility] this [facility]* Diagnosis Preoperative clearance- Primary Preoperative examination, unspecified Neurogenic bladder Neurogenic bladder, NOS Lesion of bladder Unspecified disorder of bladder Malignant neoplasm of overlapping sites of bladder (HCC)- Primary Malignant neoplasm of other specified sites of bladder documented in this encounter [facility]* Diagnosis Preoperative clearance- Primary Preoperative examination, unspecified Neurogenic bladder Neurogenic bladder, NOS Lesion of bladder Unspecified disorder of bladder Neoplasm of bladder- Primary Neoplasm of unspecified nature of bladder Abnormal coagulation profile Abnormal urine levels of substances chiefly nonmedicinal as to source Nonspecific abnormal toxicological findings documented in this encounter [facility]* Diagnosis Preoperative clearance- Primary Preoperative examination, unspecified Neurogenic bladder Neurogenic bladder, NOS Lesion of bladder Unspecified disorder of bladder History of bladder cancer- Primary Personal history of malignant neoplasm of bladder Screening for genitourinary condition Screening for other and unspecified genitourinary condition [facility]* Diagnosis Preoperative clearance- Primary Preoperative examination, unspecified Neurogenic bladder Neurogenic bladder, NOS Lesion of bladder Unspecified disorder of bladder Malignant neoplasm of overlapping sites of bladder (HCC)- Primary Malignant neoplasm of other specified sites of bladder documented in this encounter [facility]* Diagnosis Preoperative clearance- Primary Preoperative examination, unspecified Neurogenic bladder Neurogenic bladder, NOS Lesion of bladder Unspecified disorder of bladder Malignant neoplasm of overlapping sites of bladder (HCC)- Primary Malignant neoplasm of other specified sites of bladder documented in this encounter [facility]* Diagnosis Preoperative clearance- Primary Preoperative examination, unspecified Neurogenic bladder Neurogenic bladder, NOS Lesion of bladder Unspecified disorder of bladder Malignant neoplasm of overlapping sites of bladder (HCC) Malignant neoplasm of other specified sites of bladder Neoplasm of bladder Neoplasm of unspecified nature of bladder [facility]* Diagnosis Preoperative clearance- Primary Preoperative examination, unspecified Neurogenic bladder Neurogenic bladder, NOS Lesion of bladder Unspecified disorder of bladder Malignant neoplasm of overlapping sites of bladder (HCC)- Primary Malignant neoplasm of other specified sites of bladder Neoplasm of bladder Neoplasm of unspecified nature of bladder Abnormal coagulation profile Abnormal urine levels of substances chiefly nonmedicinal as to source Nonspecific abnormal toxicological findings Neoplasm of bladder Neoplasm of unspecified nature of bladder documented in this encounter [facility]* Diagnosis Preoperative clearance- Primary Preoperative examination, unspecified Neurogenic bladder Neurogenic bladder, NOS Lesion of bladder Unspecified disorder of bladder Bacteriuria- Primary Other nonspecific finding on examination of urine Neoplasm of bladder Neoplasm of unspecified nature of bladder [facility] Diagnosis Preoperative clearance- Primary Preoperative examination, unspecified Neurogenic bladder Neurogenic bladder, NOS Lesion of bladder Unspecified disorder of bladder Pre-op evaluation- Primary Preoperative examination, unspecified Hyperlipidemia, unspecified hyperlipidemia type Primary hypertension Unspecified essential hypertension Neurogenic bladder Neurogenic bladder, NOS Antineoplastic chemotherapy induced anemia Neoplasm of bladder Neoplasm of unspecified nature of bladder * Assessment & Plan Note - Bridget Desai APRN.CNP - 01/28/2024 2:32 PM EDT 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 Tripp Dasilva, Last office visit 01/08/2024 Has completed chemotherapy, currently Asymptomatic updated CBC * Assessment & Plan Note - Bridget Desai APRN.CNP - 01/28/2024 2:31 PM EDT Associated Problem(s): Neurogenic bladder Assessment: able to urinate some , performs ISC 4-5 times/day. * Assessment & Plan Note - Bridget Desai APRN.CNP - 01/28/2024 2:30 PM EDT Associated Problem(s): HTN (hypertension) Assessment: Stable with med, follows with PCP. Date: BP: 01/28/2024 128/68 01/15/2024 134/63 * Assessment & Plan Note - Bridget Desai APRN.CNP - 01/28/2024 2:30 PM EDT Associated Problem(s): HLD (hyperlipidemia) Assessment: Managed with [facility] , Follows with PCP documented in this encounter [facility]* Diagnosis Preoperative clearance- Primary Preoperative examination, unspecified Neurogenic bladder Neurogenic bladder, NOS Lesion of bladder Unspecified disorder of bladder Pre-op evaluation- Primary Preoperative examination, unspecified Hyperlipidemia, unspecified hyperlipidemia type Primary hypertension Unspecified essential hypertension Neurogenic bladder Neurogenic bladder, NOS Antineoplastic chemotherapy induced anemia Malignant neoplasm of overlapping sites of bladder (HCC)- Primary Malignant neoplasm of other specified sites of bladder Neoplasm of bladder Neoplasm of unspecified nature of bladder documented in this encounter [facility]* Diagnosis Preoperative clearance- Primary Preoperative examination, unspecified Neurogenic bladder Neurogenic bladder, NOS Lesion of bladder Unspecified disorder of bladder Pre-op evaluation- Primary Preoperative examination, unspecified Hyperlipidemia, unspecified hyperlipidemia type Primary hypertension Unspecified essential hypertension Neurogenic bladder Neurogenic bladder, NOS Antineoplastic chemotherapy induced anemia Malignant neoplasm of overlapping sites of bladder (HCC)- Primary Malignant neoplasm of other specified sites of bladder Neoplasm of bladder Neoplasm of unspecified nature of bladder documented in this encounter [facility] note* Diagnosis Preoperative clearance- Primary Preoperative examination, unspecified Neurogenic bladder Neurogenic bladder, NOS Lesion of bladder Unspecified disorder of bladder Pre-op evaluation- Primary Preoperative examination, unspecified Hyperlipidemia, unspecified hyperlipidemia type Primary hypertension Unspecified essential hypertension Neurogenic bladder Neurogenic bladder, NOS Antineoplastic chemotherapy induced anemia Malignant neoplasm of overlapping sites of bladder (HCC)- Primary Malignant neoplasm of other specified sites of bladder Neurogenic bladder Neurogenic bladder, NOS documented in this encounter [facility] note* Diagnosis Preoperative clearance- Primary Preoperative examination, unspecified Neurogenic bladder Neurogenic bladder, NOS Lesion of bladder Unspecified disorder of bladder Pre-op evaluation- Primary Preoperative examination, unspecified Hyperlipidemia, unspecified hyperlipidemia type Primary hypertension Unspecified essential hypertension Neurogenic bladder Neurogenic bladder, NOS Antineoplastic chemotherapy induced anemia Neoplasm of bladder- Primary Neoplasm of unspecified nature of bladder documented in this encounter [facility] note* Diagnosis Preoperative clearance- Primary Preoperative examination, unspecified Neurogenic bladder Neurogenic bladder, NOS Lesion of bladder Unspecified disorder of bladder Pre-op evaluation- Primary Preoperative examination, unspecified Hyperlipidemia, unspecified hyperlipidemia type Primary hypertension Unspecified essential hypertension Neurogenic bladder Neurogenic bladder, NOS Antineoplastic chemotherapy induced anemia Malignant neoplasm of overlapping sites of bladder (HCC) Malignant neoplasm of other specified sites of bladder Neoplasm of bladder Neoplasm of unspecified nature of bladder documented in this encounter [facility] note* Diagnosis Preoperative clearance- Primary Preoperative examination, unspecified Neurogenic bladder Neurogenic bladder, NOS Lesion of bladder Unspecified disorder of bladder Pre-op evaluation- Primary Preoperative examination, unspecified Hyperlipidemia, unspecified hyperlipidemia type Primary hypertension Unspecified essential hypertension Neurogenic bladder Neurogenic bladder, NOS Antineoplastic chemotherapy induced anemia Malignant neoplasm of overlapping sites of bladder (HCC)- Primary Malignant neoplasm of other specified sites of bladder Abnormal imaging of thyroid documented in this encounter [facility] note* Diagnosis Preoperative clearance- Primary Preoperative examination, unspecified Neurogenic bladder Neurogenic bladder, NOS Lesion of bladder Unspecified disorder of bladder Pre-op evaluation- Primary Preoperative examination, unspecified Hyperlipidemia, unspecified hyperlipidemia type Primary hypertension Unspecified essential hypertension Neurogenic bladder Neurogenic bladder, NOS Antineoplastic chemotherapy induced anemia Thyroid nodule- Primary Nontoxic uninodular goiter documented in this encounter [facility]No [facility] Phone: Evaluation note* Diagnosis Nontoxic multinodular goiter (CMS/HCC)- Primary Nontoxic multinodular goiter Thyroid nodule (CMS/HCC) Nontoxic uninodular goiter Thyroid dysfunction (CMS/HCC) Unspecified disorder of thyroid [facility] Diagnosis Nontoxic multinodular goiter (CMS/HCC)- Primary Nontoxic multinodular goiter Thyroid nodule (CMS/HCC) Nontoxic uninodular goiter [facility]* Diagnosis Preoperative clearance- Primary Preoperative examination, unspecified Neurogenic bladder Neurogenic bladder, NOS Lesion of bladder Unspecified disorder of bladder Pre-op evaluation- Primary Preoperative examination, unspecified Hyperlipidemia, unspecified hyperlipidemia type Primary hypertension Unspecified essential hypertension Neurogenic bladder Neurogenic bladder, NOS Antineoplastic chemotherapy induced anemia Malignant neoplasm of overlapping sites of bladder (HCC)- Primary Malignant neoplasm of other specified sites of bladder Neurogenic bladder Neurogenic bladder, NOS Thyroid nodule Nontoxic uninodular goiter documented in this encounter [facility] note* Diagnosis Preoperative clearance- Primary Preoperative examination, unspecified Neurogenic bladder Neurogenic bladder, NOS Lesion of bladder Unspecified disorder of bladder Pre-op evaluation- Primary Preoperative examination, unspecified Hyperlipidemia, unspecified hyperlipidemia type Primary hypertension Unspecified essential hypertension Neurogenic bladder Neurogenic bladder, NOS 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 lateral wall of urinary bladder documented in this encounter [facility] note* Diagnosis Nontoxic multinodular goiter- Primary Nontoxic multinodular goiter Thyroid nodule Nontoxic uninodular goiter documented [facility]* Diagnosis Nontoxic multinodular goiter- Primary Nontoxic multinodular goiter Thyroid nodule Nontoxic uninodular goiter documented in this encounter [facility]* Diagnosis Preoperative clearance- Primary Preoperative examination, unspecified Neurogenic bladder Neurogenic bladder, NOS Lesion of bladder Unspecified disorder of bladder Pre-op evaluation- Primary Preoperative examination, unspecified Hyperlipidemia, unspecified hyperlipidemia type Primary hypertension Unspecified essential hypertension Neurogenic bladder Neurogenic bladder, NOS Antineoplastic chemotherapy induced anemia Malignant neoplasm of overlapping sites of bladder (HCC)- Primary Malignant neoplasm of other specified sites of bladder [facility] Diagnosis Heart failure, unspecified (HCC)- Primary Heart failure, unspecified Primary hypertension Unspecified essential hypertension Malignant neoplasm of urinary bladder, unspecified site (HCC) Stage 3b chronic kidney disease (CMS-HCC) Hyperlipidemia, unspecified hyperlipidemia type Multiple thyroid nodules Nontoxic multinodular goiter Agent orange exposure documented in this encounter [facility] Healthcare[facility] course Narrative No data available for this section [facility] Discharge instructions No data available for this section [facility] No data available for this section [facility] reason for referral (narrative)* Outpatient Procedure (Routine) - Pending Review Specialty Diagnoses / Procedures Referred By Contac t Referred To Contact [facility] Diagnoses Preoperative clearance Procedures ECG COMPLETE ECG ROUTINE ECG W/LEAST 12 LDS W/I&R Rosi Early PA-C [address] [place] [address] [facility] [address] [place] [id number] Referral ID Status Reason Start Date Expiration Date Visits Requested Visits Authorized [id number] Pending Review Auto-Generat ed Referral 08/28/2023 08/27/2024 1 1 [facility] for referral (narrative)* Diagnostic Procedure Only (Routine) - Authorized Specialty Diagnoses / Procedures [facility] To [facility] MOLECULAR & FUNCTIONAL IMAGING Diagnoses Malignant neoplasm of overlapping sites of bladder (HCC) Procedures NM PET/CT SKULL-THIGH INITIAL PET IMAGING CT ATTENUATION SKULL BASE MID-THIGH Faisal Dasilva MD [address] [place] [address] [place] [address] Molecular & Functional Imaging [address] [place] [address] Referral ID Status Reason Start Date Expiration Date Visits Requested Visits Authorized [id number] Authorized Auto-Generat ed Referral 09/27/2023 10/26/2024 1 1 [facility] for referral (narrative)* Diagnostic Procedure Only (Urgent) - New Request Specialty Diagnoses / Procedures [facility] To [facility] IM[facility] Diagnoses Malignant neoplasm of overlapping sites of bladder (HCC) Swelling of arm Procedures US DVT UPPER RIGHT DUP-SCAN XTR VEINS UNILATERAL/LIMITED STUDY Marlee Dan PA-C [address] [place] [address] [place] [address] [facility] [place] [id number] Referral ID Status Reason Start Date Expiration Date Visits Requested Visits Authorized [id number] New Request Auto-Generat ed Referral 12/17/2023 01/15/2025 1 1 [facility] for referral (narrative)* Diagnostic Procedure Only (Routine) - Closed Specialty Diagnoses / Procedures [facility] To [facility] FUNCTIONAL IMAGING Diagnoses Malignant neoplasm of overlapping sites of bladder (HCC) Procedures NM PET/CT SKULL-THIGH INITIAL PET IMAGING CT ATTENUATION SKULL BASE MID-THIGH Faisal Dasilva MD [address] [place] [address] [place] [address] Molecular & Functional Imaging [address] [place], [place] [id number] Referral ID Status Reason Start Date Expiration Date V isits Requested Visits Authorized [id number] Closed Auto-Generate d Referral 09/27/2023 10/26/2024 1 1 [facility] for referral (narrative)* Diagnostic Procedure Only (Routine) - New Request Specialty Diagnoses / Procedures Referred By Contac t Referred To Contact US IMAGING Diagnoses Abnormal imaging of thyroid Procedures US THYROID/PARATHYROID US SOFT TISSUE HEAD & NECK REAL TIME IMGE DOC Faisal Dasilva MD [address] [place] [address] [place] [address] Us Imaging [place] [address] Referral ID Status Reason Start Date Expiration Date Visits Requested Visits Authorized [id number] New Request Auto-Generat ed Referral 06/12/2024 07/12/2025 1 1 [facility] for referral (narrative)No reason for referral [facility] Phone: Recjxt for visit Narrative* MRI/CT (Routine) - Closed Specialty Diagnoses / Procedures Referred By Contac t Referred To Contact CT IMAGING Diagnoses 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) Procedures CT UROGRAM WO/W IVCON CT ABD & PELVIS W/WO CONTRST 1+ BODY REGNS Jason Will MD [address] [place] [address] Phone: tel: fax: CT IMAGING [place] [address] Referral ID Status Reason Start Date Expiration Date V isits Requested Visits Authorized [id number] Closed Auto-Generate d Referral 10/28/2024 09/27/2025 1 1 [facility] Reason for Referral Specialty Diagnoses / Procedures Referred By Contac t Referred To Contact Oncology Diagnoses Malignant neoplasm of overlapping sites of bladder (HCC) Procedures CONSULT TO ONCOLOGY OFFICE/OUTPATIENT NEW HIGH MDM 60 MINUTES Jason Will MD [address] [place] [address] Referral ID Status Reason Start Date Expiration Date Visits Requested Visits Authorized [id number] Authorized PCP Requested Referral 09/13/2023 09/12/2024 1 1 Specialty Diagnoses / Procedures Referred By Contac t Referred To Contact CT IMAGING Diagnoses Malignant neoplasm of urinary bladder, unspecified site (HCC) Procedures CT UROGRAM WO/W IVCON CT ABD & PELVIS W/WO CONTRST 1+ BODY Jason Cruz MD [address] [place] [address] [place] [address] Referral ID Status Reason Start Date Expiration Date Visits Requested Visits Authorized [id number] Pending Review Auto-Generat ed Referral 08/24/2023 09/22/2024 1 1 Summary Purpose Family History No Family History Records Found Advance Directives Advance Directive Response Recorded Date/ Time Advance Directives No July 14 12:29pm Chief Complaint and Reason for Visit Chief Complaint Admit Date E04.1 July 14, 2024 11: 10am Additional Source Comments Patient Care team informatio n (unrecognized section and content) 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 Start Date End Date Jose J Donaldson Jr., DO [address] [place] [phone] PCP - General Internal Medicine 08/28/23 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 Start Date End Date Jose J Donaldson Jr., DO [facility] [place] [address] PCP - General Internal Medicine 08/28/23 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 Start Date End Date Jose J Donaldson Jr., DO [facility] [place] [address] PCP - General Internal Medicine 08/28/23 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 Start Date End Date Jose J Donaldson Jr., DO [facility] [place] [address] PCP - General Internal Medicine 08/28/23 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 Start Date End Date Jose J Donaldson Jr., DO [address] [place] [address] PCP - General Internal Medicine 08/28/23 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 Start Date End Date LalitoJose J Jr., DO [address] [place] [address] PCP - General Internal Medicine 08/28/23 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 Start Date End Date LalitoJose J Jr., DO [address] [place] [address] PCP - General Internal Medicine 08/28/23 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 Start Date End Date Jose J Donaldson Jr., DO [address] [place] [address] PCP - General Internal Medicine 08/28/23 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 Start Date End Date LalitoJose J Jr., DO [address] [facility] [place] [address] PCP - General Internal Medicine 08/28/23 Jose Martin Hillman APRN.RETREAD SUPERVISOR [address] [facility] [place] [address] Nurse Practitioner Hematology/Oncology 10/22/23 Faisal Dasilva MD [address] [facility] [place] [address] Physician Hematology/Oncology 10/22/23 Donald Perez, HANK [address] [facility] [place] [address] Specialty Shipping And Receiving Hematology/Oncology 10/22/23 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 Start Date End Date Jose J Donaldson Jr., DO [facility] [place] [address] PCP - General Internal Medicine 08/28/23 oJse Martin Hillman, BOOM OPERATOR.RETREAD SUPERVISOR [address] [facility] [place] [address] Nurse Practitioner Hematology/Oncology 10/22/23 Faisal Dasilva MD [address] [facility] [place] [address] Physician Hematology/Oncology 10/22/23 Donald Perez, RN [address] [facility] [address] Specialty Shipping And Receiving Hematology/Oncology 10/22/23 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 Start Date End Date Jose J Donaldson Jr., DO [address] [place] [address] [place] [address] PCP - General Internal Medicine 08/28/23 Jose Martin Hillman, BOOM OPERATOR.RETREAD SUPERVISOR [address] [facility] [address] Nurse Practitioner Hematology/Oncology 10/22/23 Faisal Dasilva MD [address] [facility] [address] Physician Hematology/Oncology 10/22/23 Donald Perez, RN [address] [facility] [address] Specialty Shipping And Receiving Hematology/Oncology 10/22/23 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 Start Date End Date Jose J Donaldson Jr., DO [address] [place] [address] [place] [address] PCP - General Internal Medicine 08/28/23 Jose Martin Hillman, BOOM OPERATOR.RETREAD SUPERVISOR [address] [facility] [place] [address] Nurse Practitioner Hematology/Oncology 10/22/23 Faisal Dasilva MD [address] [facility] [place] [address] Physician Hematology/Oncology 10/22/23 Donald Perez, HANK [address] [facility] [place] [address] Specialty Shipping And Receiving Hematology/Oncology 10/22/23 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 Start Date End Date Jose J Donaldson Jr., DO [address] [place] [address] [place] [address] PCP - General Internal Medicine 08/28/23 Jose Martin Hillman, BOOM OPERATOR.RETREAD SUPERVISOR [address] [facility] [place] [address] Nurse Practitioner Hematology/Oncology 10/22/23 Faisal Dasilva MD [address] [facility] [address] Physician Hematology/Oncology 10/22/23 Donald Perez, HANK [address] [facility] [place] [place] [address] Specialty Shipping And Receiving Hematology/Oncology 10/22/23 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 Start Date End Date Jose J Donaldson Jr., DO [address] [place] [address] [place] [address] PCP - General Internal Medicine 08/28/23 Jose Martin Hillman, BOOM OPERATOR.RETREAD SUPERVISOR [address] [facility] [address] Nurse Practitioner Hematology/Oncology 10/22/23 Faisal Dasilva MD [address] [facility] [place] [address] Physician Hematology/Oncology 10/22/23 Donald Perez, HANK [address] [facility] [address] Specialty Shipping And Receiving Hematology/Oncology 10/22/23 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 Start Date End Date Jose J Donaldson Jr., DO [address] [place] [address] PCP - General Internal Medicine 08/28/23 Jose Martin Hillman, BOOM OPERATOR.RETREAD SUPERVISOR [address] [facility] [place] [address] Nurse Practitioner Hematology/Oncology 10/22/23 Faisal Dasilva MD [address] [facility] [place] [address] Physician Hematology/Oncology 10/22/23 Donald Perez, HANK [address] [facility] [address] Specialty Shipping And Receiving Hematology/Oncology 10/22/23 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 Start Date End Date Jose J Donaldson Jr., DO [address] [place] [address] PCP - General Internal Medicine 08/28/23 Jose Martin Hillman, BOOM OPERATOR.RETREAD SUPERVISOR [address] [facility] [address] Nurse Practitioner Hematology/Oncology 10/22/23 Faisal Dasilva MD [address] [facility] [place] [address] Physician Hematology/Oncology 10/22/23 Donald Perez, HANK [address] [facility] [place] [address] Specialty Shipping And Receiving Hematology/Oncology 10/22/23 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 Start Date End Date Jsoe J Donalsdon Jr., DO [address] [place] [address] [place] [phone] PCP - General Internal Medicine 08/28/23 Jose Martin Hillman, BOOM OPERATOR.RETREAD SUPERVISOR [address] [facility] [place] [address] Nurse Practitioner Hematology/Oncology 10/22/23 Faisal Dasilva MD [address] [facility] [place] [address] Physician Hematology/Oncology 10/22/23 Donald Perez RN [address] [facility] [address] Specialty Shipping And Receiving Hematology/Oncology 10/22/23 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 Start Date End Date Jose J Donaldson Jr., DO [address] [place] [address] [place] [address] PCP - General Internal Medicine 08/28/23 Jose Martin Hillman, BOOM OPERATOR.RETREAD SUPERVISOR [address] [facility] [place] [address] Nurse Practitioner Hematology/Oncology 10/22/23 Faisal Dasilva MD [address] [facility] [place] [place] [address] Physician Hematology/Oncology 10/22/23 Donald Perez, RN [address] [facility] [place] [address] Specialty Shipping And Receiving Hematology/Oncology 10/22/23 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 Start Date End Date Jose J Donaldson Jr., DO [address] [place] [address] [place] [address] PCP - General Internal Medicine 08/28/23 Jose Martin Hillman, BOOM OPERATOR.RETREAD SUPERVISOR [address] [facility] [place] [address] Nurse Practitioner Hematology/Oncology 10/22/23 Faisal Dasilva MD [address] [facility] [place] [place] [address] Physician Hematology/Oncology 10/22/23 Donald Perez, HANK [address] [facility] [place] [address] Specialty Shipping And Receiving Hematology/Oncology 10/22/23 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 Start Date End Date Jose J Donaldson Jr., DO [address] [place] [address] [place] [address] PCP - General Internal Medicine 08/28/23 Jose Martin Hillman, BOOM OPERATOR.RETREAD SUPERVISOR [address] [facility] [address] Nurse Practitioner Hematology/Oncology 10/22/23 Faisal Dasilva MD [address] [facility] [place] [address] Physician Hematology/Oncology 10/22/23 Donald Perez, HANK [address] [facility] [place] [address] Specialty Shipping And Receiving Hematology/Oncology 10/22/23 Anette Go LSW Hasher Operator 11/26/23 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 Start Date End Date Jose J Donaldson Jr., DO [facility] [place] [address] PCP - General Internal Medicine 08/28/23 Jose Martin Hillman, BOOM OPERATOR.RETREAD SUPERVISOR [address] [place] [address] [place] [address] Nurse Practitioner Hematology/Oncology 10/22/23 Faisal Dasilva MD [address] [place] [address] [place] [address] Physician Hematology/Oncology 10/22/23 Donald Perez, HANK [address] [facility] [place] [place] [address] Specialty Shipping And Receiving Hematology/Oncology 10/22/23 Anette Go LSW Hasher Operator 11/26/23 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 Start Date End Date Jose J Donaldson Jr., DO [facility] [place] [address] PCP - General Internal Medicine 08/28/23 Jose Martin Hillman, BOOM OPERATOR.RETREAD SUPERVISOR [address] [facility] [place] [address] Nurse Practitioner Hematology/Oncology 10/22/23 Faisal Dasilva MD [address] [facility] [place] [address] Physician Hematology/Oncology 10/22/23 Donald Perez, HANK [address] [facility] [place] [address] Specialty Shipping And Receiving Hematology/Oncology 10/22/23 Anette Go LSW Hasher Operator 11/26/23 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 Start Date End Date Jose J Donaldson Jr., DO [address] [place] [phone] PCP - General Internal Medicine 08/28/23 Jose Martin Hillman, BOOM OPERATOR.RETREAD SUPERVISOR [address] [place] [address] [place] [address] Nurse Practitioner Hematology/Oncology 10/22/23 Faisal Dasilva MD [address] [place] [address] [place] [address] Physician Hematology/Oncology 10/22/23 Donald Perez, HANK [address] [facility] [place] [address] Specialty Shipping And Receiving Hematology/Oncology 10/22/23 Anette Go LSW Hasher Operator 11/26/23 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 Start Date End Date Jose J Donaldson Jr., DO [address] [place] [phone] PCP - General Internal Medicine 08/28/23 Jose Martin Hillman, BOOM OPERATOR.RETREAD SUPERVISOR [address] [facility] [place] [address] Nurse Practitioner Hematology/Oncology 10/22/23 Faisal Dasilva MD [address] [facility] [place] [address] Physician Hematology/Oncology 10/22/23 Donald Perez, RN [address] [facility] [place] [address] Specialty Shipping And Receiving Hematology/Oncology 10/22/23 Anette Go LSW Hasher Operator 11/26/23 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 Start Date End Date Davies CampusJose J buckley Jr., DO [address] [place] [phone] PCP - General Internal Medicine 08/28/23 Jose Martin Hillman, BOOM OPERATOR.RETREAD SUPERVISOR [address] [place] [address] [place] [address] Nurse Practitioner Hematology/Oncology 10/22/23 Faisal Dasilva MD [address] [place] [address] [place] [address] Physician Hematology/Oncology 10/22/23 Donald Perez, HANK [address] [facility] [place] [address] Specialty Shipping And Receiving Hematology/Oncology 10/22/23 Anette Go LSW Hasher Operator 11/26/23 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 Start Date End Date Jose J Donaldson Jr., DO [address] [place] [phone] PCP - General Internal Medicine 08/28/23 Jose Martin Hillman, BOOM OPERATOR.RETREAD SUPERVISOR [address] [facility] [place] [address] Nurse Practitioner Hematology/Oncology 10/22/23 Faisal Dasilva MD [address] [facility] [place] [address] Physician Hematology/Oncology 10/22/23 Donald Perez, RN [address] [facility] [place] [address] Specialty Shipping And Receiving Hematology/Oncology 10/22/23 Anette Go LSW Hasher Operator 11/26/23 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 Start Date End Date Jose J Donaldson Jr., DO [address] [place] [address] [place] [address] PCP - General Internal Medicine 08/28/23 Jose Martin Hillman, BOOM OPERATOR.RETREAD SUPERVISOR [address] [facility] [place] [address] Nurse Practitioner Hematology/Oncology 10/22/23 Faisal Dasilva MD [address] [facility] [place] [address] Physician Hematology/Oncology 10/22/23 Donald Perez, HANK [address] [facility] [place] [address] Specialty Shipping And Receiving Hematology/Oncology 10/22/23 Anette Go LSW Hasher Operator 11/26/23 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 Start Date End Date Jose J Donaldson Jr., DO [address] [place] [phone] PCP - General Internal Medicine 08/28/23 Jose Martin Hillman, BOOM OPERATOR.RETREAD SUPERVISOR [address] [facility] [place] [address] Nurse Practitioner Hematology/Oncology 10/22/23 Faisal Dasilva MD [address] [facility] [place] [address] Physician Hematology/Oncology 10/22/23 Donald Perez, RN [address] [facility] [place] [address] Specialty Shipping And Receiving Hematology/Oncology 10/22/23 Anette Go LSW Hasher Operator 11/26/23 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 Start Date End Date Jose J Donaldson Jr., DO [address] [place] [address] [place] [phone] PCP - General Internal Medicine 08/28/23 Jose Martin Hillman, BOOM OPERATOR.RETREAD SUPERVISOR [address] [facility] [place] [address] Nurse Practitioner Hematology/Oncology 10/22/23 Faisal Dasilva MD [address] [facility] [place] [address] Physician Hematology/Oncology 10/22/23 Donald Perez, HANK [address] [facility] [place] [address] Specialty Shipping And Receiving Hematology/Oncology 10/22/23 Anette Go LSW Hasher Operator 11/26/23 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 Start Date End Date Jose J Donaldson Jr., DO [address] [place] [address] [place] [phone] PCP - General Internal Medicine 08/28/23 Jose Martin Hillman, BOOM OPERATOR.RETREAD SUPERVISOR [address] [facility] [place] [address] Nurse Practitioner Hematology/Oncology 10/22/23 Faisal Dasilva MD [address] [facility] [place] [address] Physician Hematology/Oncology 10/22/23 Donald Perez, RN [address] [facility] [place] [address] Specialty Shipping And Receiving Hematology/Oncology 10/22/23 Anette Go LSW Hasher Operator 11/26/23 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 Start Date End Date Jose J Donaldson Jr., DO [facility] [place] [phone] PCP - General Internal Medicine 08/28/23 Jose Martin Hillman, BOOM OPERATOR.RETREAD SUPERVISOR [address] [facility] [place] [address] Nurse Practitioner Hematology/Oncology 10/22/23 Faisal Dasilva MD [address] [facility] [place] [address] Physician Hematology/Oncology 10/22/23 Donald Perez, HANK [address] [facility] [place] [address] Specialty Shipping And Receiving Hematology/Oncology 10/22/23 Anette Go LSW Hasher Operator 11/26/23 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 Start Date End Date Jose J Donaldson Jr., DO [address] [place] [address] [place] [phone] PCP - General Internal Medicine 08/28/23 Jose Martin Hillman, BOOM OPERATOR.RETREAD SUPERVISOR [address] [facility] [place] [address] Nurse Practitioner Hematology/Oncology 10/22/23 Faisal Dasilva MD [address] [facility] [place] [address] Physician Hematology/Oncology 10/22/23 Donald Perez, RN [address] [facility] [place] [address] Specialty Shipping And Receiving Hematology/Oncology 10/22/23 Anette Go LSW Hasher Operator 11/26/23 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 Start Date End Date Jose J Donaldson Jr., DO [address] [place] [address] [place] [address] PCP - General Internal Medicine 08/28/23 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 Start Date End Date Jose J Donaldson Jr., DO [address] [place] [address] [place] [address] PCP - General Internal Medicine 08/28/23 Jose Martin Hillman APRN.RETREAD SUPERVISOR [address] [place] [address] [place] [address] Nurse Practitioner Hematology/Oncology 10/22/23 Faisal Dasilva MD [address] [place] [address] [place] [address] Physician Hematology/Oncology 10/22/23 Donald Perez, RN [address] [facility] [place] [address] Specialty Shipping And Receiving Hematology/Oncology 10/22/23 Anette Go LSW Hasher Operator 11/26/23 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 Start Date End Date Jose J Donaldson Jr., DO [address] [place] [address] [place] [address] PCP - General Internal Medicine 08/28/23 Jose Martin Hillman, BOOM OPERATOR.RETREAD SUPERVISOR [address] [facility] [place] [address] Nurse Practitioner Hematology/Oncology 10/22/23 Faisal Dasilva MD [address] [facility] [place] [address] Physician Hematology/Oncology 10/22/23 Donald Perez, HANK [address] [facility] [place] [address] Specialty Shipping And Receiving Hematology/Oncology 10/22/23 Anette Go LSW Hasher Operator 11/26/23 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 Start Date End Date Jose J Donaldson Jr., DO [address] [place] [phone] PCP - General Internal Medicine 08/28/23 Jose Martin Hillman, BOOM OPERATOR.RETREAD SUPERVISOR [address] [place] [address] [place] [address] Nurse Practitioner Hematology/Oncology 10/22/23 Faisal Dasilva MD [address] [facility] [place] [address] Physician Hematology/Oncology 10/22/23 Donald Perez, HANK [address] [facility] [place] [address] Specialty Shipping And Receiving Hematology/Oncology 10/22/23 Anette Go LSW Hasher Operator 11/26/23 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 Start Date End Date Jose J Donaldson Jr., DO [address] [place] [address] [place] [phone] PCP - General Internal Medicine 08/28/23 Jose Martin Hillman, BOOM OPERATOR.RETREAD SUPERVISOR [address] [facility] [place] [address] Nurse Practitioner Hematology/Oncology 10/22/23 Faisal Dasilva MD [address] [facility] [place] [address] Physician Hematology/Oncology 10/22/23 Donald Perez, HANK [address] [facility] [place] [address] Specialty Shipping And Receiving Hematology/Oncology 10/22/23 Anette Go LSW Hasher Operator 11/26/23 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 Start Date End Date Jose J Donaldson Jr., DO [address] [place] [phone] PCP - General Internal Medicine 08/28/23 Jose Martin Hillman, BOOM OPERATOR.RETREAD SUPERVISOR [address] [place] [address] [place] [address] Nurse Practitioner Hematology/Oncology 10/22/23 Faisal Dasilva MD [address] [place] [address] [place] [address] Physician Hematology/Oncology 10/22/23 Donald Perez, HANK [address] [facility] [place] [address] Specialty Shipping And Receiving Hematology/Oncology 10/22/23 Anette Go LSW Hasher Operator 11/26/23 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 Start Date End Date Jose J Donaldson Jr., DO [address] [place] [address] [place] [phone] PCP - General Internal Medicine 08/28/23 Jose Martin Hillman, BOOM OPERATOR.RETREAD SUPERVISOR [address] [facility] [place] [address] Nurse Practitioner Hematology/Oncology 10/22/23 Faisal Dasilva MD [address] [facility] [place] [address] Physician Hematology/Oncology 10/22/23 Donald Perez, HANK [address] [facility] [place] [address] Specialty Shipping And Receiving Hematology/Oncology 10/22/23 Anette Go LSW Hasher Operator 11/26/23 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 Start Date End Date Jose J Donaldson Jr., DO [address] [place] [address] [phone] PCP - General Internal Medicine 08/28/23 Jose Martin Hillman, BOOM OPERATOR.RETREAD SUPERVISOR [address] [place] [address] [place] [address] Nurse Practitioner Hematology/Oncology 10/22/23 Faisal Dasilva MD [address] [place] [address] [place] [address] Physician Hematology/Oncology 10/22/23 Donald Perez, HANK [address] [facility] [place] [address] Specialty Shipping And Receiving Hematology/Oncology 10/22/23 Anette Go LSW Hasher Operator 11/26/23 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 Start Date End Date Davies CampusJose J buckley Jr., DO [address] [place] [address] [place] [phone] PCP - General Internal Medicine 08/28/23 Jose Martin Hillman APRN.RETREAD SUPERVISOR [address] [place] [address] [place] [address] Nurse Practitioner Hematology/Oncology 10/22/23 Faisal Dasilva MD [address] [place] [address] [place] [address] Physician Hematology/Oncology 10/22/23 Donald Perez, HANK [address] [facility] [place] [address] Specialty Shipping And Receiving Hematology/Oncology 10/22/23 Anette Go LSW Hasher Operator 11/26/23 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 Start Date End Date Jose J Donaldson MD [address] [place] [id number] PCP - General Internal Medicine 07/14/24 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 Start Date End Date Jose J Donaldson MD [address] [place] [id number] PCP - General Internal Medicine 07/14/24 Team Status: Active Member Role Status Dates PHYSICIAN NO FAMILY Primary Care Provider Active Team Status: Inactive Member Role Status Dates Rubén Newman DO Attending Provider Active S tart: July 14, 2024 End: July 14, 2024 PHYSICIAN NO FAMILY Primary Care Provider Active Start: July 14, 2024 End: July 14, 2024 Team Status: Inactive Member Role Status Dates Rubén Newman DO Attending Provider Active S tart: August 04, 2024 End: August 04, 2024 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 Start Date End Date Jose J Donaldson MD [address] [place] [address] [phone] PCP - General Internal Medicine 07/14/24 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 Start Date End Date Jose J Donaldson MD [address] [place], [place] [phone] PCP - General Internal Medicine 07/14/24 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 Start Date End Date Jose J Donaldson MD [address] [facility] [place], [place] [phone] PCP - General Internal Medicine 07/14/24 Team Status: Inactive Member Role Status Dates Rubén Newman DO Attending Provider Active S tart: November 17, 2024 End: November 17, 2024 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 Start Date End Date Jose J Donaldson Jr. DO [address] [facility] [place] [phone] PCP - General Internal Medicine 08/28/23 Jose Martin Hillman, BOOM OPERATOR.RETREAD SUPERVISOR [address] [facility] [place] [address] Nurse Practitioner Hematology/Oncology 10/22/23 Anette Go LSW Hasher Operator 11/26/23 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 Start Date End Date Jose J Donaldson MD [address] [facility] [place], [place] [phone] PCP - General Internal Medicine 07/14/24 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 Start Date End Date Jose J Donaldson Jr., DO [address] [facility] [phone] PCP - General Internal Medicine 08/28/23 Jose Martin Hillman, BOOM OPERATOR.RETREAD SUPERVISOR [address] [facility] [place] [address] Nurse Practitioner Hematology/Oncology 10/22/23 Anette Go LSW Hasher Operator 11/26/23 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 Start Date End Date Jose J Donaldson Jr., DO [address] [place] [phone] PCP - General Internal Medicine 08/28/23 Jose Martin Hillman APRN.CNP [address] [place] [address] [place] [address] Nurse Practitioner Hematology/Oncology 10/22/23 Anette Go LSW Hasher Operator 11/26/23 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 Start Date End Date Jose J Donaldson MD [address] [place], [place] [phone] PCP - General Internal Medicine 07/14/24 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 Start Date End Date Jose J Donaldson MD [facility] [place], [place] [phone] PCP - General Internal Medicine 07/14/24 Source Comments (unrecognize d section and content) In the event this informatio n is protected by the [facility] Confidentiality of Alcohol and Drug Abuse Patient Records regulations: The Federal rules restrict any use of the information to criminally investigate or prosecute any alcohol or drug abuse patient.[facility] the event this information is protected by the Federal Confidentiality of Alcohol and Drug Abuse Patient Records regulations: The Federal rules restrict any use of the information to criminally investigate or prosecute any alcohol or drug abuse patient.[facility] the event this information is protected by the Federal Confidentiality of Alcohol and Drug Abuse Patient Records regulations: The Federal rules restrict any use of the information to criminally investigate or prosecute any alcohol or drug abuse patient.[facility] the event this information is protected by the Federal Confidentiality of Alcohol and Drug Abuse Patient Records regulations: The Federal rules restrict any use of the information to criminally investigate or prosecute any alcohol or drug abuse patient.[facility]In the event this information is protected by the Federal Confidentiality of Alcohol and Drug Abuse Patient Records regulations: The Federal rules restrict any use of the information to criminally investigate or prosecute any alcohol or drug abuse patient.[facility] Hospital[facility] the event this information is protected by the Federal Confidentiality of Alcohol and Drug Abuse Patient Records regulations: The Federal rules restrict any use of the information to criminally investigate or prosecute any alcohol or drug abuse patient.[facility] the event this information is protected by the Federal Confidentiality of Alcohol and Drug Abuse Patient Records regulations: The Federal rules restrict any use of the information to criminally investigate or prosecute any alcohol or drug abuse patient.[facility]In the event this information is protected by the Federal Confidentiality of Alcohol and Drug Abuse Patient Records regulations: The Federal rules restrict any use of the information to criminally investigate or prosecute any alcohol or drug abuse patient.[facility] the event this information is protected by the Federal Confidentiality of Alcohol and Drug Abuse Patient Records regulations: The Federal rules restrict any use of the information to criminally investigate or prosecute any alcohol or drug abuse patient.[facility] HospitalIn the event this information is protected by the Federal Confidentiality of Alcohol and Drug Abuse Patient Records regulations: The Federal rules restrict any use of the information to criminally investigate or prosecute any alcohol or drug abuse patient.[facility] HospitalIn the event this information is protected by the Federal Confidentiality of Alcohol and Drug Abuse Patient Records regulations: The Federal rules restrict any use of the information to criminally investigate or prosecute any alcohol or drug abuse patient.[facility] HospitalIn the event this information is protected by the Federal Confidentiality of Alcohol and Drug Abuse Patient Records regulations: The Federal rules restrict any use of the information to criminally investigate or prosecute any alcohol or drug abuse patient.[facility] HospitalIn the event this information is protected by the Federal Confidentiality of Alcohol and Drug Abuse Patient Records regulations: The Federal rules restrict any use of the information to criminally investigate or prosecute any alcohol or drug abuse patient.[facility] HospitalIn the event this information is protected by the Federal Confidentiality of Alcohol and Drug Abuse Patient Records regulations: The Federal rules restrict any use of the information to criminally investigate or prosecute any alcohol or drug abuse patient.[facility] HospitalIn the event this information is protected by the Federal Confidentiality of Alcohol and Drug Abuse Patient Records regulations: The Federal rules restrict any use of the information to criminally investigate or prosecute any alcohol or drug abuse patient.[facility] HospitalIn the event this information is protected by the Federal Confidentiality of Alcohol and Drug Abuse Patient Records regulations: The Federal rules restrict any use of the information to criminally investigate or prosecute any alcohol or drug abuse patient.[facility] HospitalIn the event this information is protected by the Federal Confidentiality of Alcohol and Drug Abuse Patient Records regulations: The Federal rules restrict any use of the information to criminally investigate or prosecute any alcohol or drug abuse patient.[facility] HospitalIn the event this information is protected by the Federal Confidentiality of Alcohol and Drug Abuse Patient Records regulations: The Federal rules restrict any use of the information to criminally investigate or prosecute any alcohol or drug abuse patient.[facility] HospitalIn the event this information is protected by the Federal Confidentiality of Alcohol and Drug Abuse Patient Records regulations: The Federal rules restrict any use of the information to criminally investigate or prosecute any alcohol or drug abuse patient.[facility] HospitalIn the event this information is protected by the Federal Confidentiality of Alcohol and Drug Abuse Patient Records regulations: The Federal rules restrict any use of the information to criminally investigate or prosecute any alcohol or drug abuse patient.[facility] HospitalIn the event this information is protected by the Federal Confidentiality of Alcohol and Drug Abuse Patient Records regulations: The Federal rules restrict any use of the information to criminally investigate or prosecute any alcohol or drug abuse patient.[facility] HospitalIn the event this information is protected by the Federal Confidentiality of Alcohol and Drug Abuse Patient Records regulations: The Federal rules restrict any use of the information to criminally investigate or prosecute any alcohol or drug abuse patient.[facility] HospitalIn the event this information is protected by the Federal Confidentiality of Alcohol and Drug Abuse Patient Records regulations: The Federal rules restrict any use of the information to criminally investigate or prosecute any alcohol or drug abuse patient.[facility] HospitalIn the event this information is protected by the Federal Confidentiality of Alcohol and Drug Abuse Patient Records regulations: The Federal rules restrict any use of the information to criminally investigate or prosecute any alcohol or drug abuse patient.[facility] HospitalIn the event this information is protected by the Federal Confidentiality of Alcohol and Drug Abuse Patient Records regulations: The Federal rules restrict any use of the information to criminally investigate or prosecute any alcohol or drug abuse patient.[facility] HospitalIn the event this information is protected by the Federal Confidentiality of Alcohol and Drug Abuse Patient Records regulations: The Federal rules restrict any use of the information to criminally investigate or prosecute any alcohol or drug abuse patient.[facility] HospitalIn the event this information is protected by the Federal Confidentiality of Alcohol and Drug Abuse Patient Records regulations: The Federal rules restrict any use of the information to criminally investigate or prosecute any alcohol or drug abuse patient.[facility] HospitalIn the event this information is protected by the Federal Confidentiality of Alcohol and Drug Abuse Patient Records regulations: The Federal rules restrict any use of the information to criminally investigate or prosecute any alcohol or drug abuse patient.[facility] HospitalIn the event this information is protected by the Federal Confidentiality of Alcohol and Drug Abuse Patient Records regulations: The Federal rules restrict any use of the information to criminally investigate or prosecute any alcohol or drug abuse patient.[facility] HospitalIn the event this information is protected by the Federal Confidentiality of Alcohol and Drug Abuse Patient Records regulations: The Federal rules restrict any use of the information to criminally investigate or prosecute any alcohol or drug abuse patient.[facility] HospitalIn the event this information is protected by the Federal Confidentiality of Alcohol and Drug Abuse Patient Records regulations: The Federal rules restrict any use of the information to criminally investigate or prosecute any alcohol or drug abuse patient.[facility] HospitalIn the event this information is protected by the Federal Confidentiality of Alcohol and Drug Abuse Patient Records regulations: The Federal rules restrict any use of the information to criminally investigate or prosecute any alcohol or drug abuse patient.[facility] HospitalIn the event this information is protected by the Federal Confidentiality of Alcohol and Drug Abuse Patient Records regulations: The Federal rules restrict any use of the information to criminally investigate or prosecute any alcohol or drug abuse patient.[facility] HospitalIn the event this information is protected by the Federal Confidentiality of Alcohol and Drug Abuse Patient Records regulations: The Federal rules restrict any use of the information to criminally investigate or prosecute any alcohol or drug abuse patient.[facility] HospitalIn the event this information is protected by the Federal Confidentiality of Alcohol and Drug Abuse Patient Records regulations: The Federal rules restrict any use of the information to criminally investigate or prosecute any alcohol or drug abuse patient.[facility] HospitalIn the event this information is protected by the Federal Confidentiality of Alcohol and Drug Abuse Patient Records regulations: The Federal rules restrict any use of the information to criminally investigate or prosecute any alcohol or drug abuse patient.[facility] HospitalIn the event this information is protected by the Federal Confidentiality of Alcohol and Drug Abuse Patient Records regulations: The Federal rules restrict any use of the information to criminally investigate or prosecute any alcohol or drug abuse patient.[facility] HospitalIn the event this information is protected by the Federal Confidentiality of Alcohol and Drug Abuse Patient Records regulations: The Federal rules restrict any use of the information to criminally investigate or prosecute any alcohol or drug abuse patient.[facility] HospitalIn the event this information is protected by the Federal Confidentiality of Alcohol and Drug Abuse Patient Records regulations: The Federal rules restrict any use of the information to criminally investigate or prosecute any alcohol or drug abuse patient.[facility] HospitalIn the event this information is protected by the Federal Confidentiality of Alcohol and Drug Abuse Patient Records regulations: The Federal rules restrict any use of the information to criminally investigate or prosecute any alcohol or drug abuse patient.[facility] HospitalIn the event this information is protected by the Federal Confidentiality of Alcohol and Drug Abuse Patient Records regulations: The Federal rules restrict any use of the information to criminally investigate or prosecute any alcohol or drug abuse patient.[facility] HospitalIn the event this information is protected by the Federal Confidentiality of Alcohol and Drug Abuse Patient Records regulations: The Federal rules restrict any use of the information to criminally investigate or prosecute any alcohol or drug abuse patient.[facility] HospitalIn the event this information is protected by the Federal Confidentiality of Alcohol and Drug Abuse Patient Records regulations: The Federal rules restrict any use of the information to criminally investigate or prosecute any alcohol or drug abuse patient.[facility] HospitalIn the event this information is protected by the Federal Confidentiality of Alcohol and Drug Abuse Patient Records regulations: The Federal rules restrict any use of the information to criminally investigate or prosecute any alcohol or drug abuse patient.[facility] HospitalIn the event this information is protected by the Federal Confidentiality of Alcohol and Drug Abuse Patient Records regulations: The Federal rules restrict any use of the information to criminally investigate or prosecute any alcohol or drug abuse patient.[facility] HospitalIn the event this information is protected by the Federal Confidentiality of Alcohol and Drug Abuse Patient Records regulations: The Federal rules restrict any use of the information to criminally investigate or prosecute any alcohol or drug abuse patient.[facility] HospitalIn the event this information is protected by the Federal Confidentiality of Alcohol and Drug Abuse Patient Records regulations: The Federal rules restrict any use of the information to criminally investigate or prosecute any alcohol or drug abuse patient.[facility] HospitalIn the event this information is protected by the Federal Confidentiality of Alcohol and Drug Abuse Patient Records regulations: The Federal rules restrict any use of the information to criminally investigate or prosecute any alcohol or drug abuse patient.[facility] HospitalIn the event this information is protected by the Federal Confidentiality of Alcohol and Drug Abuse Patient Records regulations: The Federal rules restrict any use of the information to criminally investigate or prosecute any alcohol or drug abuse patient.[facility] HospitalIn the event this information is protected by the Federal Confidentiality of Alcohol and Drug Abuse Patient Records regulations: The Federal rules restrict any use of the information to criminally investigate or prosecute any alcohol or drug abuse patient.[facility] HospitalIn the event this information is protected by the Federal Confidentiality of Alcohol and Drug Abuse Patient Records regulations: The Federal rules restrict any use of the information to criminally investigate or prosecute any alcohol or drug abuse patient.[facility] HospitalIn the event this information is protected by the Federal Confidentiality of Alcohol and Drug Abuse Patient Records regulations: The Federal rules restrict any use of the information to criminally investigate or prosecute any alcohol or drug abuse patient.[facility] HospitalIn the event this information is protected by the Federal Confidentiality of Alcohol and Drug Abuse Patient Records regulations: The Federal rules restrict any use of the information to criminally investigate or prosecute any alcohol or drug abuse patient.[facility] HospitalIn the event this information is protected by the Federal Confidentiality of Alcohol and Drug Abuse Patient Records regulations: The Federal rules restrict any use of the information to criminally investigate or prosecute any alcohol or drug abuse patient.[facility] HospitalIn the event this information is protected by the Federal Confidentiality of Alcohol and Drug Abuse Patient Records regulations: The Federal rules restrict any use of the information to criminally investigate or prosecute any alcohol or drug abuse patient.[facility] HospitalIn the event this information is protected by the Federal Confidentiality of Alcohol and Drug Abuse Patient Records regulations: The Federal rules restrict any use of the information to criminally investigate or prosecute any alcohol or drug abuse patient.[facility] HospitalIn the event this information is protected by the Federal Confidentiality of Alcohol and Drug Abuse Patient Records regulations: The Federal rules restrict any use of the information to criminally investigate or prosecute any alcohol or drug abuse patient.[facility] HospitalIn the event this information is protected by the Federal Confidentiality of Alcohol and Drug Abuse Patient Records regulations: The Federal rules restrict any use of the information to criminally investigate or prosecute any alcohol or drug abuse patient.[facility] HospitalIn the event this information is protected by the Federal Confidentiality of Alcohol and Drug Abuse Patient Records regulations: The Federal rules restrict any use of the information to criminally investigate or prosecute any alcohol or drug abuse patient.[facility] HospitalIn the event this information is protected by the Federal Confidentiality of Alcohol and Drug Abuse Patient Records regulations: The Federal rules restrict any use of the information to criminally investigate or prosecute any alcohol or drug abuse patient.[facility] HospitalIn the event this information is protected by the Federal Confidentiality of Alcohol and Drug Abuse Patient Records regulations: The Federal rules restrict any use of the information to criminally investigate or prosecute any alcohol or drug abuse patient.[facility] HospitalIn the event this information is protected by the Federal Confidentiality of Alcohol and Drug Abuse Patient Records regulations: The Federal rules restrict any use of the information to criminally investigate or prosecute any alcohol or drug abuse patient.[facility] HospitalIn the event this information is protected by the Federal Confidentiality of Alcohol and Drug Abuse Patient Records regulations: The Federal rules restrict any use of the information to criminally investigate or prosecute any alcohol or drug abuse patient.[facility] HospitalIn the event this information is protected by the Federal Confidentiality of Alcohol and Drug Abuse Patient Records regulations: The Federal rules restrict any use of the information to criminally investigate or prosecute any alcohol or drug abuse patient.[facility] Reason for Visit (unrecogniz ed section and content) Reason Comments Consult Reason Comments Surgery and PACC dates Reason Comments Pre-Op Teaching Reason Comments Radiology CT Specialty Diagnoses / Procedures [facility] Diagnoses Malignant neoplasm of urinary bladder, unspecified site (HCC) Procedures CT UROGRAM WO/W IVCON CT ABD & PELVIS W/WO CONTRST 1+ BODY REGNS Jason Will MD [address] [address] [facility] [place] [address] Referral ID Status Reason Start Date Expiration Date V isits Requested Visits Authorized [id number] Closed Auto-Generate d Referral 08/24/2023 09/22/2024 1 1 Reason Comments Surgical Followup Reason Comments Results Reason Comments Appointment Reason Comments Voiding Trial Reason Comments Urothelial cancer New patient consult Specialty Diagnoses / Procedures [facility] Ref[facility] To Contact Oncology Diagnoses Malignant neoplasm of overlapping sites of bladder (HCC) Procedures CONSULT TO ONCOLOGY OFFICE/OUTPATIENT NEW HIGH MDM 60 MINUTES Jason Will MD [address] [place] [address] Referral ID Status Reason Start Date Expiration Date V isits Requested Visits Authorized [id number] Closed PCP Requested Referral 09/13/2023 09/12/2024 1 1 Reason Comments Care Coordination Antiemetics Reason Onset Date Comments Refill Request 10/22/2023 Reason Comments Care Coordination PET Results Reason Comments Bladder Cancer Reason Comments First Time Treatment Education Cisplatin & Gemcitabine Reason Comments Lab Orders Reason Comments Bladder Cancer Treatment visit Specialty Diagnoses / Procedures [facility] Referred To Contact Diagnoses Malignant neoplasm of overlapping sites of bladder (HCC) Faisal Dasilva MD [address] [place] [address] [place] [address] Raz Treat Adriano [address] [place] [address] Referral ID Status Reason Start Date Expiration Date V isits Requested Visits Authorized [id number] Authorized 10/22/2023 01/20/2024 99 99 Reason Comments Informed Consent Reason Comments Care Coordination C1D1 Post Treatment Call Reason Comments Refill Request Reason Comments Bladder Cancer Treatment visit Reason Comments Radiology US Reason Comments Cystoscopy-1 Reason Comments Radiology NM Specialty Diagnoses / Procedures Referred By [facility] Referred To Contact MOLECULAR & FUNCTIONAL IMAGING Diagnoses Malignant neoplasm of overlapping sites of bladder (HCC) Procedures NM PET/CT SKULL-THIGH INITIAL PET IMAGING CT ATTENUATION SKULL BASE MID-THIGH Faisal Dasilva MD [address] [place] [address] [place] [address] Molecular & Functional Imaging [address] [place] [address] Referral ID Status Reason Start Date Expiration Date V isits Requested Visits Authorized [id number] Closed Auto-Generate d Referral 09/27/2023 10/26/2024 1 1 Reason Comments Results Preparations For Surgery Reason Comments Bladder Cancer Follow up Reason Comments Results Reason Comments Bladder Cancer Reason Comments Orders Reason Comments Radiology CT Specialty Diagnoses / Procedures [facility] Referred To Contact CT IMAGING Diagnoses Malignant neoplasm of overlapping sites of bladder (HCC) Procedures CT ABD/PEL W IVCON CT ABD & PELVIS W/CONTRAST Faisal Dasilva MD [address] [place] [address] [place] [address] [place] [address] Referral ID Status Reason Start Date Expiration Date V isits Requested Visits Authorized [id number] Closed Auto-Generate d Referral 03/11/2024 04/10/2025 1 1 Reason Comments Bladder Cancer Followup Reason Comments Care Coordination Thyroid US Reason Comments Thyroid Nodule FNA Reason Comments rescheduled appointment Reason Comments Thyroid Nodule FNA results Reason Comments Antibiotic Reason Comments Bladder Cancer Followup Reason Comments Thyroid Nodule 3 month repeat FNA Reason Comments Appointment Confirmation Reason Comments Care Coordination Clinical update Reason Comments Establish Care (unrecognized sect ion and content) No Status Records FoundNo Status Records FoundNo Status Records FoundNo Status Records FoundNo Status Records FoundNo Status Records Found INFORMATION SOURCE (unrecogn ized section and content) DATE CREATED AUTHOR 09/26/2023 [facility] DATE CREATED AUTHOR AUTHOR'S ORGANIZ ATION 11/04/2024 [facility] DATE CREATED AUTHOR AUTHOR'S ORGANIZ ATION 11/27/2024 [facility] DATE CREATED AUTHOR AUTHOR'S ORGANIZ ATION 12/01/2024 [facility] EPIC DATE CREATED AUTHOR AUTHOR'S ORGANIZ ATION 12/04/2024 [facility] DATE CREATED AUTHOR AUTHOR'S ORGANIZ ATION 01/03/2025 [facility] Goals (unrecognized section and content) Goals may be documented in a n alternate section FOR RECORDS PERTAINING TO PATIENTS WHO ARE OR HAVE BEEN ENROLLED IN A CHEMICAL DEPENDENCY/SUBSTANCEABUSE PROGRAM, SOME INFORMATION MAY BE OMITTED. This clinical summary was aggregated from multiple sources. Caution should be exercised in using it in the provision of clinical care. This summary normalizes information from multiple sources, and as a consequence, information in this document may materially change the coding, format and clinical context of patient data. In addition, data may be omitted in some cases. CLINICAL DECISIONS SHOULD BE BASED ON THE PRIMARY CLINICAL RECORDS. [employer] provides no warranty or guarantee of the accuracy or completeness of information in this document.
--- NOTE | 2025-01-09 10:30 | ECG_ITS ---
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
== END 2025-01-09 10:15 | disposition home or self-care (01) ==
LOC: CARD 10:16
DX: I50.9 Heart failure, unspecified (principal)
CPT/HCPCS: 93005

== ENCOUNTER 2025-05-05 09:43 | Outpatient (OUT) | payer MEDICARE, SELFPAY ==
--- OUTSIDE RECORDS SUMMARY | 2025-05-05 09:46 | XMS_ITS | Clinical Summary ---
Author Organization [facility] Address [address] [place], [place] [address] Care Team Providers Care Producer Assistant Name Role Phone Lalito Hobbs DO, Charles Lewis Primary Care Provi gerry Latosha Stoll GIMP BUTTONHOLE MACHINE OPERATOR.SHARPLES MACHINE OPERATOR Unavailable [phone] Anette Go Unavailable Unavailable Allergies No known active allergies Medications MedicationSigDispense QuantityRefillsLast FilledStart DateEnd DateStatus carvedilol (COREG) 3.125 mg tablet Take 3.125 mg by mouth two times a day with meals.5Active sacubitril-valsartan (ENTRESTO) 24-26 mg tablet Take 1 tablet by mouth two times a day.Active iv contrast (will be provided with radiology test) Indications:Malignant neoplasm of overlapping sites of bladder (HCC)CT Chest ABD/PEL-Inject, intravenously, once for 1 dose.No IV access, insert saline lock prior to the beginning of sedation, infusion, injection of imaging exam. Discontinue saline lock post exam. IfPt. has a central line or IVAD, may access for administration according to line specific nursing protocol. Once exam is complete flush line and de-access according to line specific nursing protocol in the CT contrast administration guidelines link. 1 each 5Active enteric contrast (will be provided with radiology test) Indications:Malignant neoplasm of overlapping sites of bladder (HCC)For CT CHESTABD/PEL W IVCON Routine order Administer, As Directed One Time Only, via Oral, Rectal, both Oral and Rectal, Enteric Tube, Stoma or Indwelling Catheter, Enteric Contrast as designated perenteric contrast guidelines 1 each 5Active spironolactone (ALDACTONE) 50 mg tablet Take 25 mg by mouth two times a day.ExpiredHospital, Clinic, or Other Facility Administered MedicationOrdered DoseRouteFrequencyStart DateEnd DateStatus cephALEXin 500 mg cap(s) (KEFLEX) 500 mgPOAS NJYVXYWI68/24/2025Active Active Problems ProblemNoted DateDiagnosed DateStage 3b chronic kidney jcuscou2703/25/2025 Antineoplastic chemotherapy induced rqsozv6001/28/2024 Assessment & Plan (01/28/2024 2:46 PM EDT): Assessment: Follows with Hematology Dr. Tripp Dasilva, Last office visit 01/08/2024 Has completed chemotherapy, currently Asymptomatic updated CBC Malignant neoplasm of overlapping sites of zcuilmn8210/22/2023HTN (hypertension) 08/28/2023 Assessment & Plan (01/28/2024 2:30 PM EDT): Assessment: Stable with med, follows with PCP. Date: BP: 01/28/2024 128/68 01/15/2024 134/63 Assessment & Plan (08/28/2023 12:09 PM EDT): Assessment: managed with medication, stable HLD (hyperlipidemia)08/28/2023 Assessment & Plan (01/28/2024 2:30 PM EDT): Assessment: Managed with Statin , Follows with PCP Assessment & Plan (08/28/2023 12:09 PM EDT): Assessment: on statin therapy Neurogenic iiquzng3408/28/2023 Assessment & Plan (01/28/2024 2:31 PM EDT): Assessment: able to urinate some , performs ISC 4-5 times/day. Assessment & Plan (08/28/2023 12:30 PM EDT): Assessment: neurogenic bladder, self catheterization 3-4 x/ day x 17 years Bladder rycalvazoaok57/23/2024 Assessment & Plan (08/28/2023 12:30 PM EDT): Assessment: scheduled for surgery September 06, 2023 Encounters DateTypeDepartmentCare IzsyUehfatcjoqp28/19/2025 3:00 PM ESTVisit (SP) Office Hematology/Oncology [address] [place] [address] [place] [address] Ankit Neil MD Malignant neoplasm of overlapping sites of bladder (HCC) (Primary Dx); Stage 3b chronic kidney disease (HCC); Encounter for follow-up examination after completed treatment for malignant ewzsquok28/19/8261Ddpgks81/18/2025Telephone [place] [address] [place] [address] Abhishek Obrien MD Tpghgf8202/27/2025 11:30 AM EDTOffice Visit Urology [address] [place] [address] Abhishek Obrien MD Malignant neoplasm of urinary bladder, unspecified site (HCC) (Primary Dx)from Last 3 Months Immunizations ImmunizationAdministration DatesNext DueCOVID-19 original vaccine, age 12+ yr, monovalent (PFIZER-BIONTECH - REYES TOP)2COVID- original vaccine, age 12+ yr, monovalent (PFIZER-BIONTECH - PURPLE TOP)02/01/2021,06/28/2020, 1COVID-19 vaccine, age 12+ yr (PFIZER-BIONTECH COMIRNATY)01/29/2024, 3COVID-19 vaccine, age 12+ yr, bivalent (PFIZER-BIONTECH)02/01/2022 influenza (HD-IIV3) vaccine, age 65+ yr, high dose, trivalent, PF (FLUZONE HIGH-DOSE)02/03/2025,01/29/2024influenza (HD-IIV4) vaccine, age 65+ yr, high dose, quadrivalent, PF (FLUZONE HIGH-DOSE)02/01/2022,01/17/2021influenza (IIV4) vaccine, age 6 mo - 64 yr, quadrivalent (AFLURIA, FLULAVAL, FLUZONE)01/31/2017 influenza (IIV4) vaccine, age 6 mo - 64 yr, quadrivalent, PF (AFLURIA, FLUARIX, FLULAVAL, FLUZONE)02/02/2016influenza (LAIV) vaccine, nasal, unspecified hycvnzponxi05/11/2023,02/04/2023,02/01/2022,01/17/2021,01/05/2021,02/04/2019, 02/04/2017,02/04/2014,02/13/2013,01/05/2011,02/04/2010,02/18/2009influenza vaccine, unspecified uymthfhzxnj88/11/2023,02/04/2023,02/01/2022,01/17/2021, 01/05/2021,02/04/2019,02/04/2017,02/02/2016,02/04/2014,02/13/2013,01/05/2011, 02/04/2010,02/18/2009influenza vaccine, whole virus01/29/2013,02/06/2012 pneumococcal conjugate (PCV15) vaccine, 15 valent (VAXNEUVANCE)04/10/2022 pneumococcal polysaccharide (PPV23) vaccine, 23 valent (PNEUMOVAX 23)01/11/2016 pneumococcal vaccine, unspecified fvyklroreqv51/06/2016,12/05/2010respiratory syncytial virus (RSV) vaccine, bivalent (ABRYSVO)02/19/2023tetanus diphtheria pertussis (Tdap) vaccine, age 7+ yr (ADACEL, BOOSTRIX)03/16/2025,01/05/2015 zoster (RZV) vaccine, recombinant (SHINGRIX)10/06/2019,04/08/2019 Family History Medical HistoryRelationCommentsHeart diseaseFatherRelationStatusCommentsFather DeceasedMotherDeceased Social History Tobacco UseTypesPacks/DayYears UsedDateSmoking Tobacco: NeverPassive Smoke Exposure: NeverSmokeless Tobacco: Never Tobacco Cessation:Counseling Given: Not Answered Alcohol UseStandard Drinks/WeekCommentsNot Currently0 (1 standard drink = 0.6 oz pure alcohol)PHQ-2AnswerDate RecordedPHQ-2 vkyvi7455Area Deprivation IndexAnswerDate RecordedNational Score (1-100), lower number is lower risk65 09/21/2023State Score (1-10), lower number is lower xdhf973ata from: https://www.neighborhoodatlas.medicine.[facility].edu/. Last address used for n[address]/21/2023Sex and Gender InformationValueDate Recorded Sex Assigned at HqnmhYpfo02/23/2024 3:40 PM EDTLegal WxbPbul5008/01/2023 1:33 PM EDTGender CjyssglsXszn17/23/2024 3:40 PM EDTSexual OrientationNot on file Last Filed Vital Signs Vital SignReadingTime TakenCommentsBlood Okxonwaj299/6703/25/2025 2:46 PM EST Pnhtp225703/25/2025 2:46 PM QGVWesuujchdsy92.4 ??C (97.5 ??F)03/25/2025 2:46 PM ESTRespiratory Vyzc033905/25/2024 2:46 PM ESTOxygen Solurdncbh46%03/25/2025 2:46 PM ESTInhaled Oxygen Concentration--Bcvpkb11.2 kg (196 lb 10.4 oz)03/25/2025 2:46 PM DUMFliiqq348.8 cm (5' 10 )03/25/2025 2:46 PM ESTBody Mass Index28.22 03/25/2025 2:46 PM EST Plan of Treatment DateTypeDepartmentCare Team (Latest Contact Info)Rucjgadwtnt18/28/2026 1:15 PM ESTAppointment Radiology Pet CT [address] [place] [place] [address] ct cap & labs06/10/2025 1:00 PM ESTVisit (SP) Office Hematology/Oncology [address] [place] [place] [address] Ankit Neil MD [address] [place] [place] [address] ct qrzmvbz2607/27/2025 2:00 PM EDTAppointment [facility] [place] [facility] [address] [place] [address] Dx: Malignant neoplasm of urinary bladder, unspecified site (HCC) [C67.9] 08/25/2025 11:30 AM EDTOffice Visit Urology [address] [place] [address] Colt Velasquez MD [address] [place] [address] CYSTOSCOPYHealth MaintenanceDue DateLast DoneCommentsAnnual PCP Team Chronic Disease Visit1963Anxiety Kbdzspoly12/29/1963Depression Oterhmyfh09/29/1963 Medicare Annual Wellness Visit04/06/2010dvance Directive Cfkxknvwdu61/01/2025 Covid-19 Vaccine ( season), 01/29/2024, 02/19/2023, Additional history existsHemoglobin/Cwkpuqpdeq28/19/89519105/25/2024, 01/08/2025, 12/11/2024, Additional history existsSerum Mxzwbvlyhp70/19/2026 03/25/2025, 01/08/2025, 12/11/2024, Additional history existsDiabetes Screening , 01/08/2025, 01/08/2025, Additional history exists DTaP,Tdap,Td Vaccine (3 - Td or Tdap)5105/16/2024, 01/05/2015Shingrix HftvitzKaxmjkqwv37/01/2020, 04/08/2019Pneumococcal Vaccine: 50+Completed 04/10/2022, 01/11/2016, 01/11/2016, Additional history existsRSV Vaccine Xqcaupvin06/16/2023Influenza CghjlkzHgeauhdbd66/30/2025, 01/29/2024, 02/14/2023, Additional history exists Medical Devices ImplantedTypeAreaManufacturerDevice IdentifierShelf Expiration DateModel / Serial / LotStent Inlay [place] 6fr Taper [place] [employer] Polymer Phreecoat 28cm Ureteral - [id number] Implanted:Qty: 1 [facility] StentsRight: Ureter SUAD VAWGMFLFQ68/[id number] / / [id number] Procedures Procedure NamePriorityDate/TimeAssociated DiagnosisCommentsCOMPREHENSIVE METABOLIC FCWEHEtkcrpt02/19/2025 2:35 PM EST Malignant neoplasm of overlapping sites of bladder (HCC) Neurogenic bladder Thyroid nodule Acute on chronic urinary retention CBC + BXHHRirqvgw85/19/2025 2:35 PM EST Malignant neoplasm of overlapping sites of bladder (HCC) Neurogenic bladder Thyroid nodule Acute on chronic urinary retention CYTOLOGY NON-LGSPtwdwbx20/24/2025 11:59 AM EDT Malignant neoplasm of urinary bladder, unspecified site (HCC) from Last 3 Months Results * (ABNORMAL) COMPREHENSIVE METABOLIC PANEL (03/25/2025 2:35 PM EST)Component ValueRef RangeTest MethodAnalysis TimePerformed AtPathologist Signature Protein, Total7.36.3 - 8.0 g/dL03/25/2025 2:57 PM ESTNOR[facility]CO[facility] LABAlbumin4.03.9 - 4.9 g/dL03/25/2025 2:57 PM ESTNORTASP[facility] LABCalcium, Total9.38.5 - 10.2 mg/dL03/25/2025 2:57 PM ESTNORTASP[facility] LABBilirubin, Total0.20.2 - 1.3 mg/dL 03/25/2025 2:57 PM ESTNORTASP[facility] LABAlkaline Keyxvusrcta1206 - 113 U/L105/25/2024 2:57 PM ESTNORTASPIR[facility] NJDIXR78(L)14 - 40 U/L105/25/2024 2:57 PM ESTNORTASPIR[facility] TEYLEU0167 - 54 U/L105/25/2024 2:57 PM [facility] MCOSgosnlk183(H)74 - 99 mg/dL03/25/2025 2:57 PM ESTNORTASPIRUS KEWEENA[facility] LABComment: The [place] Diabetes Association (ADA) provides guidance for cutoff values for fasting glucose andrandom glucose. The ADA defines fasting as no [...] Standards of Medical Care in Diabetes 2016, [place] Diabetes Association. Diabetes Care. 2016.39(Suppl 1). BUN43(H)9 - 24 mg/dL03/25/2025 2:57 PM [facility] LAB Creatinine1.87(H)0.73 - 1.22 mg/dL03/25/2025 2:57 PM [facility] EXXFtioss207409 - 144 mmol/L105/25/2024 2:57 PM [facility] LABPotassium5.03.7 - 5.1 mmol/L105/25/2024 2:57 PM EST [facility] MCDMwcxwqyy47782 - 107 mmol/L105/25/2024 2:57 PM [facility] MMQEV00369 - 30 mmol/L105/25/2024 2:57 PM [facility] LABAnion Gap6(L)8 - 15 mmol/L105/25/2024 2:57 PM [facility] LABEstimated Glomerular Filtration Rate36(L)>=60 mL/min/1.73m 03/25/2025 2:57 PM [facility] LABComment:Estimated Glomerular Filtration Rate (eGFR) is calculated using the 2020 CKD-EPI creatinine equation. This equation utilizes serum creatinine, sex, and age as parameters. The creatinine assay has traceable calibration to isotope dilution- mass spectrometry. Refer to KDIGO guidelines for clinical interpretation. In patients with unstable renal function, e.g. those with acute kidney injury, the eGFRmay not accurately reflect actual GFR.Specimen (Source)Anatomical Location / LateralityCollection Method / VolumeCollection TimeReceived TimeBloodBLOOD SPECIMEN / UnknownVenipuncture / Argokih4003/25/2025 2:35 PM EST03/25/2025 2:35 PM EST Narrative Authorizing ProviderResult TypeResult StatusHolly Jerman DICKSONCNPLABORATORY Final ResultPerforming OrganizationAddressCity/State/ZIP CodePhone Number [facility] [address] [place] [phone] * (ABNORMAL) COMPLETE BLOOD COUNT AND DIFFERENTIAL (03/25/2025 2:35 PM EST) ComponentValueRef RangeTest MethodAnalysis TimePerformed AtPathologist SignatureWBC7.593.70 - 11.00 k/uL03/25/2025 2:39 PM ESTMINNIE HAM[facility] LABRBC3.89(L)4.20 - 6.00 m/uL03/25/2025 2:39 PM [facility] GPIUbiwyaeutf77.3(L)13.0 - 17.0 g/dL03/25/2025 2:39 PM [facility] IUVTqpldructj20.0(L)39.0 - 51.0 % 03/25/2025 2:39 PM [facility] RMQSLF44.180.0 - 100.0 fL03/25/2025 2:39 PM [facility] IRUDXF71.626.0 - 34.0 pg03/25/2025 2:39 PM ESTNORTASP[facility] WHLEEBS21.230.5 - 36.0 g/dL03/25/2025 2:39 PM [facility] LABRDW-CV 13.311.5 - 15.0 %03/25/2025 2:39 PM [facility] Platelet Mnizw071183 - 400 k/uL03/25/2025 2:39 PM [facility] BXTOEC03.29.0 - 12.7 fL03/25/2025 2:39 PM [facility] LABNeutrophils %62.8%03/25/2025 2:39 PM [facility] LABAbs Neut4.761.45 - 7.50 k/uL03/25/2025 2:39 PM [facility] LABLymphocytes %25.4%03/25/2025 2:39 PM [facility] LABAbs Lymph1.931.00 - 4.00 k/uL03/25/2025 2:39 PM EST [facility] LABMonocytes %9.1%03/25/2025 2:39 PM [facility] LABAbs Mono0.69<0.87 k/uL03/25/2025 2:39 PM [facility] LABEosinophils %1.8%03/25/2025 2:39 PM [facility] LABAbs Eosin0.14<0.46 k/uL03/25/2025 2:39 PM [facility] LABBasophils %0.4%03/25/2025 2:39 PM [facility] LABAbs Baso0.03<0.11 k/uL03/25/2025 2:39 PM [facility] LABImmature Granulocytes %0.5% 03/25/2025 2:39 PM [facility] LABAbs Immature Gran 0.04<0.10 k/uL03/25/2025 2:39 PM [facility] LABNRBC 0.0/100 WBC03/25/2025 2:39 PM [facility] LABAbsolute nRBC<0.01<0.01 k/uL03/25/2025 2:39 PM [facility] LABDiff IpzcTqiq68/19/2025 2:39 PM ESTNOR[facility]CO[facility] Specimen (Source)Anatomical Location / LateralityCollection Method / Volume Collection TimeReceived TimeBloodBLOOD SPECIMEN / UnknownVenipuncture / Jixfjpa8003/25/2025 2:35 PM EST03/25/2025 2:35 PM EST Narrative Authorizing ProviderResult TypeResult StatusHolly Jerman GIMP BUTTONHOLE MACHINE OPERATOR.CNPLABORATORY Final ResultPerforming OrganizationAddressCity/State/ZIP CodePhone Number [facility] [address] [place] [address] * CYTOLOGY NON-BATTERY STARTER (02/27/2025 11:59 AM EDT)ComponentValueRef RangeTest Method Analysis TimePerformed AtPathologist SignatureCase ReportMedical Cytology Report ? Case: [id number] ? Authorizing Provider: ??Abhishek Obrien MD ? Collected: ? 02/27/2025 11:59 AM ? Ordering Location: ? Urology ?Received: ?:17 PM ? Pathologist: ? Pablo Burton MD ? Specimen: ?Bladder ? 03/03/2025 9:06 AM [facility] LABORATORYFINAL DIAGNOSISA - Bladder, Wash: Negative for high-grade urothelial carcinoma. Abundant acute inflammation and bacteria. 03/03/2025 9:06 AM [facility]ORY at 0906 EDTGross DescriptionA. Bladder 10 cc hazy light yellow fluid with particles. ThinPrep prepared. 03/03/2025 9:06 AM [facility] LABORATORYClinical Historybladder cancer 03/03/2025 9:06 AM [facility] LABORATORYPerforming LabTechnical component, staff radiation therapist screening performed at: [facility], [address] [place] [address] CLIA: [id number] Diagnostic interpretation performed at: [facility], [address] [place] [address] CLIA# [id number] Global Cto: Cameron Owen MD 03/03/2025 9:06 AM [facility] LABORATORYDisclaimerLaboratory Developed Test (LDT) Disclaimer: Performance characteristics of immunohistochemical, immunofluorescent, and chromogenic in-situ hybridization tests have been determined by the performing laboratory within the [facility] Department of Pathology and Laboratory Medicine ([facility], [facility], [facility], [facility], [facility], [facility], or [facility]) in a manner consistent with CLIA requirements. One or more of these tests may not have been cleared or approved by the FDA. The [facility] Department of Pathology and Laboratory Medicineis regulated under CLIA as qualified to perform high-complexity testing. These tests are used for clinical purposes. These should not be regarded as investigational or for research. Positive and negative controls stain appropriately.03/03/2025 9:06 AM [facility] LABORATORYSpecimen (Source)Anatomical Location / LateralityCollection Method / VolumeCollection TimeReceived TimeWashSPECIMEN FROM URINARY BLADDER / Iwtyjlk5802/27/2025 11:59 AM EDT1 1:17 PM EDT Narrative Authorizing ProviderResult TypeResult StatusJaHenry [facility] MDCYTOLOGYFinal Result Performing OrganizationAddressCity/State/ZIP CodePhone Number [facility] [address] [place] [address], [facility] [address] [address] [place] [address], [place] from Last 3 Months Insurance Care Teams Team MemberRelationshipSpecialtyStart DateEnd Date Jose J Starkey Jr., [facility] [place] [address] PCP - GeneralInternal Medicine08/28/23 Latosha Stoll APRN.SHARPLES MACHINE OPERATOR [address] [place] [address] [place] [address] Nurse PractitionerHematology/Oncology10/22/23 Anette Go LSW Social Worker11/26/23
--- OUTSIDE RECORDS SUMMARY | 2025-05-05 09:46 | XMS_ITS ---
Author Organization [facility] Address [address] [place], [place] [address] Care Team Providers Care Harness Cleaner Name Role Phone Lalito Hobbs DO, Charles Lewis Primary Care Provi gerry Latosha Stoll WORM FARM LABORER.YOUTH TEACHER Unavailable Anette Go ZIPPER SETTER Unavailable Unavailable Active Problems ProblemNoted DateDiagnosed DateStage 3b chronic kidney ckxxphu7903/25/2025 Antineoplastic chemotherapy induced osqwbi2201/28/2024 Assessment & Plan (01/28/2024 2:46 PM EDT): Assessment: Follows with Hematology Dr. Tripp Dasilva, Last office visit 01/08/2024 Has completed chemotherapy, currently Asymptomatic updated CBC Malignant neoplasm of overlapping sites of restvvr6610/22/2023HTN (hypertension) 08/28/2023 Assessment & Plan (01/28/2024 2:30 PM EDT): Assessment: Stable with med, follows with PCP. Date: BP: 01/28/2024 128/68 01/15/2024 134/63 Assessment & Plan (08/28/2023 12:09 PM EDT): Assessment: managed with medication, stable HLD (hyperlipidemia)08/28/2023 Assessment & Plan (01/28/2024 2:30 PM EDT): Assessment: Managed with Statin , Follows with PCP Assessment & Plan (08/28/2023 12:09 PM EDT): Assessment: on statin therapy Neurogenic wfiayon6208/28/2023 Assessment & Plan (01/28/2024 2:31 PM EDT): Assessment: able to urinate some , performs ISC 4-5 times/day. Assessment & Plan (08/28/2023 12:30 PM EDT): Assessment: neurogenic bladder, self catheterization 3-4 x/ day x 17 years Bladder mqyqokzysdms36/23/2024 Assessment & Plan (08/28/2023 12:30 PM EDT): Assessment: scheduled for surgery September 06, 2023 Current Treatment and Therapy Plans No current plan information found. Past Treatment and Therapy Plans Plan NameStart DateDiscontinue DateTreatment MedicationsDiscontinue ReasonPlan ProviderCyclesAMB GEMCITABINE 1000 CISPLATIN 25 D1,8 - Q21D6//[id number]/* CISplatin iv piggyback or iv infusion * fosaprepitant (EMEND) * gemcitabine iv piggyback (GEMZAR) * palonosetron (ALOXI) OtherMurphy, Faisal Navarro MD4 of 4 cycles started
--- OUTSIDE RECORDS SUMMARY | 2025-05-05 09:46 | XMS_ITS | Clinical Summary ---
Author Organization [facility] Address [address] [place] [address] Care Team Providers Care Dog Warden Name Role Phone Cristina Kerr MD Primary Care Provider [phone] Tanesha Casiano NP Unavailable [phone] Allergies No known active allergies Medications MedicationSigDispense QuantityRefillsLast FilledStart DateEnd DateStatus sacubitril-valsartan (Entresto) 24-26 MG tablet Take by mouth5Active spironolactone (Aldactone) 50 MG tablet Indications:Heart failure, unspecified (HCC)Take 1 tablet (50 mg) by mouth Daily 90 tablet 5Active carvedilol (Coreg) 3.125 MG tablet Indications:Chronic heart failure, unspecified heart failure type (HCC),Primary hypertensionTake 1 tablet (3.125 mg) by mouth in the morning and 1 tablet (3.125 mg) in the evening. Take with meals. 180 tablet ctive Active Problems ProblemNoted DateDiagnosed DateLeft ventricular systolic onwezttllnq69/31/2025 Overview (08/04/2024): Aug 01, 2024 Entered By: TALHA WALL Comment: EF 40--45% 07/2024 Osteoarthritis of both knees08/04/2024 Resolved Problems ProblemNoted DateDiagnosed DateResolved UotpSqkljoymehe64/10/202503/02/2025 Pmghfemmhrqnjro49Encounter for other administrative zkexxjelasqk80/10Exposure to potentially hazardous substance Ocular uttgiujgxgnx06Ocular hypertension, ztbtfbavu02Presbyopiantineoplastic chemotherapy induced ltqody61Malignant neoplasm of overlapping sites of mzixjmc21/ladder quucasgvcwsd78HLD (hyperlipidemia)/10/2024HTN (hypertension)/10/2024 Neurogenic atinotx13 Encounters DateTypeDepartmentCare KasxQsltmkkwcch44/10/2025bstract [facility] [address] [facility] [place] [address] Tanesha Casiano NP 02/11/2025Telephone [facility] [address] [facility] [place] [address] Cristina Kerr MD 02/06/2025Orders Only [facility] [address] [facility] [place] [address] Tanesha Casiano NP Left ventricular systolic dysfunction (Primary Dx)02/06/2025Orders Only [facility] [address] [facility] [place] [address] Chronic heart failure, unspecified heart failure type (HCC)02/05/2025 9:30 AM EDTOffice Visit [facility] [address] [facility] [place] [address] Tanesha Casiano NP Wellness examination (Primary Dx); Mixed hyperlipidemia; Prediabetes; Chronic heart failure, unspecified heart failure type (HCC); Primary plwnxrgxezti69/02/2025amboo flowsheet [facility] [address] [place] [address] [phone] Tanesha Casiano NP 02/05/2025Travelfrom Last 3 Months Immunizations ImmunizationAdministration DatesNext DueABRYSVO - Respiratory syncytial virus (RSV), vaccine, bivalent, protein subunit RSV prefusion F, diluent reconstituted, 0.5 mL, PF02/19/2023Influenza Whole01/29/2013,02/06/2012 Influenza, High Dose Seasonal, Preservative Free02/03/2025,01/29/2024Influenza, High-dose Seasonal, Quadrivalent, Preservative Free02/01/2022,01/17/2021 Influenza, Nkuyczjzjdx36/11/2023,02/04/2023,01/05/2021,02/04/2019,02/04/2017, 02/04/2014,02/13/2013,01/05/2011,02/04/2010,02/18/2009Influenza, injectable, mllhweldbfsv20/27/2017Influenza, injectable, quadrivalent, preservative free 02/02/2016Pneumococcal Conjugate PCV 1512Pneumococcal Polysaccharide XWIC3171Pneumococcal, Jdwxaifmiwk62/06/2016,12/05/20102469WZFE-CMK-3 (COVID- 19) vaccine, mRNA, spike protein, LNP, preservative free, 10 mcg/0.2 mL dose 02/03/2025Tdap01/05/2015Zoster, Lyniafkysuw20/01/2020,04/08/2019 Family History Medical HistoryRelationNameCommentsHeart diseaseFatherRelationNameStatusComments FatherDeceasedMotherDeceased Social History Tobacco UseTypesPacks/DayYears UsedDateSmoking Tobacco: NeverSmokeless Tobacco: Never Tobacco Cessation:Counseling Given: Not Answered Alcohol UseStandard Drinks/WeekCommentsNot Currently0 (1 standard drink = 0.6 oz pure alcohol)Caffine: occassionallySocial Connection and Isolation PanelAnswer Date RecordedFrequency of Communication with Friends and FamilyNot on file 01/08/2025Frequency of Social Gatherings with Friends and FamilyNot on file 5Attends Jain ServicesNot on file5Active Member of Clubs or OrganizationsNot on file01/08/2025ttends Club or Organization MeetingsNot on file01/08/2025re you , , , , never , or living with a partner?Eobgtms5801/08/2025UDIT-CAnswerDate RecordedQ1: How often do you have a drink containing alcohol?Never01/08/2025verage Number of Drinks Not on file01/08/2025Frequency of Binge DrinkingNot on file01/08/2025PHQ-2Answer Date RecordedPatient Health Questionnaire-2 Rvibp794Hunger Vital Sign AnswerDate RecordedWithin the past 12 months, you worried that your food would run out before you got the money to buymore.Never true01/08/2025Within the past 12 months, the food you bought just didn't last and you didn't have money to get more.Never true01/08/2025Sex and Gender InformationValueDate RecordedSex Assigned at BirthNot on fileLegal DsgGnuh3007/19/2022 7:38 PM EDTGender Identity Not on fileSexual OrientationNot on file Last Filed Vital Signs Vital SignReadingTime TakenCommentsBlood Jdeaxhcl438/8402/05/2025 9:32 AM EDT Zjvcp696002/05/2025 9:32 AM XRYGclfdxzwxlc39.3 ??C (97.3 ??F)02/05/2025 9:32 AM EDTRespiratory Rate--Oxygen Ntfkmfegwt81%02/05/2025 9:32 AM EDTInhaled Oxygen Concentration--Luttay76.2 kg (194 lb 6.4 oz)02/05/2025 9:32 AM SJPXbtuac399.3 cm (5' 9 )01/08/2025 9:51 AM EDTBody Mass Index28.71001/08/2025 9:51 AM EDT Plan of Treatment DateTypeDepartmentCare Team (Latest Contact Info)Iydululwzig36/13/2026 10:00 AM ESTOffice Visit [facility] [address] [facility] [place] [phone] Tanesha Casiano NP [address] [place] [address] Health MaintenanceDue DateLast DoneCommentsPneumococcal Vaccine: 65+ Years Imrpfyfag37/05/2022, 01/11/2016, 01/11/2016, Additional history existsInfluenza PyybvdbOmqgsjskc07/30/2025, 01/29/2024, 02/14/2023, Additional history exists Procedures Procedure NamePriorityDate/TimeAssociated DiagnosisCommentsECG 12-LEADRoutine 02/05/2025 8:29 AM EDT Chronic heart failure, unspecified heart failure type (HCC) from Last 3 Months Results * ECG 12 lead (02/05/2025 8:29 AM EDT) Narrative Authorizing ProviderResult TypeResult StatusCritical Access Hospital NPECG ORDERABLES Final ResultPerforming OrganizationAddressCity/State/[facility] CodePhone Number [facility] [address] [place] [address], from Last 3 Months Insurance * Guarantor: Benigno PhillipsAccount TypeRelation to PatientDate of BirthPhone Billing AddressPersonal/GdiezwEdis1945 [address] [place] [address] Care Teams Team MemberRelationshipSpecialtyStart DateEnd Date Cristina Kerr MD [address] [place] [phone] PCP - GeneralFamily Medicine01/12/25 Tanesha Casiano NP [address] [place] [address] Nurse PractitionerLawrence Memorial Hospital Medicine01/12/25
--- OUTSIDE RECORDS SUMMARY | 2025-05-05 09:46 | XMS_ITS | Clinical Summary ---
Author Organization [facility] Address [id number] [address] [place] [address] Care Team Providers Care Hospital Intern Name Role Phone Lalito Hobbs DO, Charles L Primary Care Provider Social History Tobacco UseTypesPacks/DayYears UsedDateSmoking Tobacco: Never AssessedChildcare AnswerDate ZfaejjfwDrhdthazmEnqbofq41/12/2019EmploymentAnswerDate Recorded QsfiqtjmedEcvapks77/12/2019Purpose - LifeAnswerDate RecordedPurpose and direction in rlyaMuytywb45/11/2021Sex and Gender InformationValueDate Recorded Sex Assigned at BirthNot on fileLegal WzsAvmb4912/10/2014 11:54 AM EDTGender IdentityNot on fileSexual OrientationNot on file Plan of Treatment Not on file Medical Devices Not on file Insurance Care Teams Team MemberRelationshipSpecialtyStart DateEnd Date Jose J Starkey Jr., [facility] [place], [place] [id number] PCP - GeneralInternal Medicine08/31/17
--- OUTSIDE RECORDS SUMMARY | 2025-05-05 09:48 | XMS_ITS | CCD ---
Author Organization [facility] Care Team Providers Care [place] Name Role Phone JOSE J DONALDSON JR Primary Care Physician Unavailable Primary Care Provider Unavaildilma vidal Unavailable Primary Care Provider Unavailabl e Lalito Hobbs, Jose J WHITE Primary Care Provi gerry Antonio GARY Attending Unavailable Antonio GARY Attending Unavailable Antonio GARY Attending Unavailable Antonio GARY Admitting Unavailable Jerman CATERING SOUS CHEF.TRANSITION MANAGER, Jose Martin Unavailable [phone] Faisal Dasilva MD Unavailable [phone] Bailey MCKINNEY, Donald Unavailable Anette Kebede Unavailable Unavailable Jose J Donaldson MD Primary Care Provider [phone] Rubén Newman DO Attending Provider [phone] NO FAMILY, PHYSICIAN Primary Care Provider Unava ilable JOSE J DONALDSON JR Primary Care Unavail able JASON WILL Referring Unavailable Rubén Newman DO Attending Provider JASON WILL Attending Unavailable JOSE J DONALDSON JR Primary Care Unavail able JASON WILL Attending Unavailable JOSE J DONALDSON JR Primary Care Unavail able JASON WILL Admitting Unavailable JASON WILL Attending Unavailable JOSE J DONALDSON JR Primary Care Unavail able Rubén Newman Attending Unavailable NO FAMILY, PHYSICIAN Primary Care Unavailable Rubén Newman Admitting Unavailable NON STAFF Primary Care Unavailable Rubén Newman Admitting Unavailable Rubén Newman Attending Unavailable Rubén Newman Admitting Unavailable Rubén Newman Attending Unavailable Cristina Kerr MD Primary Care Provider Stephenie LIQUID CENTER ASSEMBLER, Tanesha Unavailable RUBÉN NEWMAN Attending Unavailable TRENT, RUBÉN Lockwood Attending Unavailable TRENT, RUBÉN Lockwood Attending Unavailable TRENT, RUBÉN Lockwood Attending Unavailable TRENT, RUBÉN Lockwood Attending Unavailable SWINEDEMARCO, TANESHA Attending Unavailable SWINEERANT, TANESHA Attending Unavailable SWINEDEMARCO, TANESHA Referring Unavailable VALONE , [facility] Unavail able ABHISHEK DURAN Attending Unavailable VALONE , [facility] Unavail able VALONE , [facility] Unavail able FAISAL DASILVA Referring Unavailabl e VALONE JR, [facility] Unavail able FAISAL DASILVA Attending Unavailabl e ERICK, FAISAL BELL Referring Unavailabl e VALONE JR, [facility] Unavail able FAISAL DASILVA Referring Unavailabl e VALONE JR, [facility] Unavail able FAISAL DASILVA Attending Unavailabl e ERICK, FAISAL BELL Referring Unavailabl e FAISAL DASILVA Referring Unavailabl e VALONE JR, [facility] Unavail able JOSE MARTIN HILLMAN Attending Unavailable FAISAL DASILVA Referring Unavailabl e VALONE , [facility] Unavail able FAISAL DASILVA Referring Unavailabl e VALONE JR, [facility] Unavail able Medications Current Medications MedicationDrug Class(es)DatesSig (Normalized)Sig (Original)amLODIPine 5 mg oral tablet (1 source)Dihydropyridine Calcium Channel BlockerStart: 96-68-6881ymKHCDYnps 5 mg Tab Refills(s) 0 Start Date: 07/25/21 Status: Orderedcarvedilol 3.125 mg oral tablet (3 sources)alpha-Adrenergic Koko, beta-Adrenergic BlockerStart: 02-05-2025 End: 91-34-1876fxym 1 tablet by mouth in the morningcarvedilol (Coreg) 3.125 MG tablet Indications: Chronic heart failure, unspecified heart failure type (HCC) , Primary hypertension Take 1 tablet (3.125 mg) by mouth in the morning and 1 tablet (3.125mg) in the evening. Take with meals. 180 tablet 1 02/05/2025 02/05/2026 ActiveStart: 02-05-2025 End: 92-89-4710avyp 1 tablet by mouth in the morningcarvedilol (Coreg) 12.5 MG tablet Indications: Chronic heart failure, unspecified heart failure type (HCC) , Primary hypertension Take 1 tablet (12.5 mg) by mouth in the morning and 1 tablet (12.5 mg) in the evening. Take with meals. 60 tablet 11 02/05/2025 02/05/2026 Activedocusate sodium 100 mg oral capsule (12 sources)Start: 09-07-2023 End: 99-99-5973ohhy 1 capsule by mouth twice dailydocusate sodium (COLACE) 100 mg capsule Take 1 capsule by mouth two times a day for 14 days. 28 capsule 0 09/07/2023 09/21/2023 Active End: 37-44-7597ucfacbnm sodium (STOOL SOFTENER ORAL) Take by mouth as needed. 10/24/2023 Discontinued End: 58-00-4858ndtwfvnk sodium (STOOL SOFTENER ORAL) Take by mouth as needed. 0 10/24/2023 Discontinueddocusate sodium (STOOL SOFTENER ORAL) Take by mouth as needed. 0 Activeenteric contrast (will be provided with radiology test) (2 sources)Start: 03-11-2024 End: 08-58-1445rzpuvhy contrast (will be provided with radiology test) For CT CHESTABD/PEL W IVCON Routine order Administer, As Directed One Time Only, via Oral, Rectal, both Oral and Rectal, Enteric Tube, Stoma orIndwelling Catheter, Enteric Contrast as designated per enteric contrast guidelines 1 Each 03/11/2024 03/12/2024 Activeiv contrast (will be provided with radiology test) (4 sources)Start: 03-11-2024 End: 73-95-5715zx contrast (will be provided with radiology test) CT Chest ABD/PEL-Inject, intravenously, once for1 dose.No IV access, insert saline lock prior to the beginning of sedation, infusion, injection of imaging exam. Discontinue saline lock post exam. If Pt. has a central line or IVAD, may access for administration according to line specific nursing protocol. Once exam is complete flush line and de-access according to line specific nursing protocol in the CT contrast administration guidelines link.1 Each 03/11/2024 03/12/2024 ActiveStart: 08-24-2023 End: 90-88-8352vm contrast (will be provided with radiology test) CT Urogram WO/W Inject, [...] guidelines link. 1 Each 0 08/24/2023 08/25/2023 ActiveComment on above:CT Urogram WO/W Inject, intravenously, once for 1 dose.No IV access, insert saline lock prior to the beginning of sedation, infusion, injection of imaging exam. Discontinue saline lock post exam. If Pt. has a central line or IVAD, may access for administration according to line specific nursing protocol. Once exam is complete flush line and de-access according to line specific nursing protocol inthe CT contrast administration guidelines link. nitrofurantoin, macrocrystals 25 mg / nitrofurantoin, monohydrate 75 mg oral capsule (11 sources)Nitrofuran AntibacterialStart: 12-14-2023 End: 98-98-4188gdzfaqetwaszlz monohydrate and macrocrystal (MACROBID) 100 mg capsule 12/14/2023 01/18/2024 Discontinuedondansetron 8 mg oral tablet (20 sources)Serotonin-3 Receptor AntagonistStart: 10-22-2023 End: 62-51-8507bnii 1 tablet by mouth every eight hours as neededondansetron (Zofran) 8 MG tablet Take 8 mg by mouth every 8 (eight) hours if needed 10/22/2023 01/08/2025 Discontinuedprochlorperazine 10 mg oral tablet (20 sources)PhenothiazineStart: 10-22-2023 End: 15-47-4712jqyv 1 tablet by mouth every six hours as neededprochlorperazine (Compazine) 10 MG tablet Take 10 mg by mouth every 6 (six) hours if needed 10/22/2023 01/08/2025 DiscontinuedPsyllium (3 sources)Start: 92-30-4754Lsknabzky Oral, Refills(s) 0 Start Date: 05/23/19 Status: Orderedpsyllium seed, with sugar, (METAMUCIL, SUGAR, ORAL) (19 sources)psyllium seed, with sugar, (METAMUCIL, SUGAR, ORAL) Take by mouth. Activeramipril 10 mg oral capsule (20 sources)Angiotensin Converting Enzyme InhibitorStart: 08-20-2023 End: 26-76-4576mnrx 1 capsule by mouth in the morningramipril (Altace) 10 MG capsule Take 10 mg by mouth in the morning. 08/20/2023 01/08/2025 Discontinued Start: 67-03-1958mqxntouf 10 mg Cap Refills(s) 0 Start Date: 07/25/21 Status: OrderedComment on above:Take 10 mg by mouth once daily.sacubitril 24 mg / valsartan 26 mg oral tablet (20 sources)Angiotensin 2 Receptor BlockerStart: 66-39-7478aowqoiabzz-valsartan (Entresto) 24-26 MG tablet Take by mouth 07/31/2024 ActiveStart: 02-15-3002pzrj 1 tablet by mouth twice dailysacubitril-valsartan (ENTRESTO) 24-26 mg tablet Take 1 tablet by mouth two times a day. 07/31/2024 Activespironolactone 50 mg oral tablet (20 sources)Aldosterone AntagonistStart: 08-01-2023 End: 01-61-0042nsnm 1 tablet by mouth once dailyspironolactone (Aldactone) 50 MG tablet Indications: Heart failure, unspecified (HCC) Take 1 tablet(50 mg) by mouth Daily 90 tablet 01/08/2025 04/08/2025 ActiveComment on above:Take 50 mg by mouth once daily.Vitamin D (3 sources)Start: 85-44-7585Wexxwwy D International_Unit, Oral, Daily, Refills(s) 0 Start Date: 07/09/20 Status: Ordered Completed/Discontinued Medications MedicationDrug Class(es)DatesSig (Normalized)Sig (Original)cephalexin 500 mg oral capsule (4 sources)Cephalosporin AntibacterialStart: 09-01-2024 End: 15-08-6265zuxo 1 capsule by mouth three times dailycephALEXin (KEFLEX) 500 mg capsule Indications: Acute cystitis without hematuria Take 1 capsule by mouth three times a day for 10 days. 30 capsule 09/01/2024 09/11/2024 ExpiredStart: 01-18-2024 End: 72-08-1741bbsh 1 capsule by mouth three times dailycephALEXin (KEFLEX) 500 mg capsule Indications: Bacteriuria Take 1 capsule by mouth three times a day for 10 days. 30 capsule 01/18/2024 01/28/2024 Discontinuedciprofloxacin 500 mg oral tablet (6 sources)Quinolone AntimicrobialStart: 09-02-2023 End: 09-12-1165hzouuzejkcsnh HCl (CIPRO) 500 mg tablet Course 1: TAKE 1 TABLET BY MOUTH TWICE DAILY FOR 3 DAYS. START THE DAY PRIOR TO CATHETER REMOVAL Course 2: TAKE 1 TABLET BY MOUTH TWICE DAILY FOR 3 DAYS. STARTTHE DAY PRIOR TO STENT REMOVAL 12 tablet 0 09/07/2023 09/13/2023 ExpiredStart: 43-49-2453qzsr 1 tablet by mouth once dailyCipro 500 mg Tab 500 mg = 1 tab(s), Oral, Daily, Take 1 tablet the day before the procedure and 1 tablet after the procedure, # 1 tab(s), Refills(s) 0, Pharmacy: [facility] [id number], 179, cm, 08/07/22 8:48:00 EDT, Height/Length Dosing, 90, kg, 08/07/22 8:48:00 EDT, Weight Dosing Start Date: 07/30/23 Status: OrderedCISplatin 47.25 mg in NaCl 0.9% 587.25 mL (PLATINOL) (2 sources)Start: 01-15-2024 End: .25 mg (25 mg/m2 1.89 m2 Treatment plan adjusted BSA), INTRAVENOUS, Administer over 1 Hours, ONCE, 1 dose, On Sun01/15/24 at 1030, Approx Total Volume: mL EXP: 01/17/2024 1630 RT Hazardous Chemotherapy Drug: Use appropriate PPE. Antineoplastic Vesicant for concentrations greater than 0.4 mg/mL - Antineoplastic Irritant for concentrations less than 0.4 mg/mL. Protect from Light.Start: 01-08-2024 End: 98-32-766567.25 mg (25 mg/m2 1.89 m2 Treatment plan adjusted BSA), INTRAVENOUS, Administer over 1 Hours, ONCE, 1 dose, On Sun01/08/24 at 1000, Approx Total Volume: mL EXP: 01/09/2024 1600 RT Hazardous Chemotherapy Drug: Use appropriate PPE. Antineoplastic Vesicant for concentrations greater than 0.4 mg/mL - Antineoplastic Irritant for concentrations less than 0.4 mg/mL. Protect from Light.CISplatin 50 mg in NaCl 0.9% 590 mL (PLATINOL) (5 sources)Start: 12-17-2023 End: 84-65-8121ZEAruwtza 50 mg in NaCl 0.9% 590 mL (PLATINOL)Start: 12-03-2023 End: 88-76-4223RPTfxrgun 50 mg in NaCl 0.9% 590 mL (PLATINOL)Start: 11-26-2023 End: 89-93-8475WZOdbcsbe 50 mg in NaCl 0.9% 590 mL (PLATINOL)Start: 11-12-2023 End: 48-62-1093NIXsclxql 50 mg in NaCl 0.9% 590 mL (PLATINOL)Start: 11-05-2023 End: 41-26-5448IEQxisgob 50 mg in NaCl 0.9% 590 mL (PLATINOL)dexAMETHasone 10 mg in NaCl 0.9% 50 mL (DECADRON) (8 sources)Start: 01-15-2024 End: 92-92-591278 mg, INTRAVENOUS, ONCE, 1 dose, On Sun01/15/24 at 1030, Refrigerate.Start: 01-08-2024 End: 35-10-119942 mg, INTRAVENOUS, ONCE, 1 dose, On Sun01/08/24 at 1000, Refrigerate.Start: 12-24-2023 End: 93-78-886033 mg, INTRAVENOUS, ONCE, 1 dose, On Sun12/24/23 at 1130, Refrigerate.Start: 12-17-2023 End: 19-61-9413rkvDTVXTapfiy 10 mg in NaCl 0.9% 50 mL (DECADRON)Start: 12-03-2023 End: 45-20-7779xupBXINTclnba 10 mg in NaCl 0.9% 50 mL (DECADRON)Start: 11-26-2023 End: 28-29-4075hyjFZPQIbdomp 10 mg in NaCl 0.9% 50 mL (DECADRON)Start: 11-12-2023 End: 14-57-4155djiIHDNFayphr 10 mg in NaCl 0.9% 50 mL (DECADRON)Start: 11-05-2023 End: 18-06-9943wonJKIKFaghts 10 mg in NaCl 0.9% 50 mL (DECADRON)doxycycline monohydrate 100 mg oral tablet (12 sources)Tetracycline-class DrugStart: 12-10-2023 End: 26-95-9901lvbqzmonhfe monohydrate 100 mg tablet 12/10/2023 01/28/2024 Discontinuedferrous sulfate 325 mg oral tablet (12 sources) End: 39-77-0765agwyrqo sulfate (IRON) 325 mg (65 mg iron) tablet Take 325 mg by mouth. 01/28/2024 Discontinuedfosaprepitant 150 mg in NaCl 0.9% 250 mL (EMEND) (8 sources)Start: 01-15-2024 End: 07-45-9787136 mg, INTRAVENOUS, Administer over 30 Minutes, ONCE, 1 dose, On Sun01/15/24 at 1030, Approximate Total Volume = 280 mL RefrigerateStart: 01-08-2024 End: 01-97-9754104 mg, INTRAVENOUS, Administer over 30 Minutes, ONCE, 1 dose, On Sun01/08/24 at 1000, Approximate Total Volume = 280 mL RefrigerateStart: 12-24-2023 End: 60-74-3320760 mg, INTRAVENOUS, Administer over 30 Minutes, ONCE, 1 dose, On Sun12/24/23 at 1130, Approximate Total Volume = 280 mL RefrigerateStart: 12-17-2023 End: 65-51-0025fbrqnmieqfgqj 150 mg in NaCl 0.9% 250 mL (EMEND)Start: 12-03-2023 End: 05-99-4356ljsaxhnviytir 150 mg in NaCl 0.9% 250 mL (EMEND)Start: 11-26-2023 End: 13-97-1871lgidvxrahiwee 150 mg in NaCl 0.9% 250 mL (EMEND)Start: 11-12-2023 End: 75-40-4826gdxsbrbtfpipe 150 mg in NaCl 0.9% 250 mL (EMEND)Start: 11-05-2023 End: 47-62-6890fqvelbmtzjyoj 150 mg in NaCl 0.9% 250 mL (EMEND)gemcitabine 1,800 mg in NaCl 0.9% 322.34 mL (GEMZAR) (2 sources)Start: 01-15-2024 End: ,800 mg (rounded from 1,890 mg = 1,000 mg/m2 1.89 m2 Treatment plan adjusted BSA), INTRAVENOUS, Administer over 30 Minutes, ONCE, 1 dose, On Sun01/15/24 at 1030, EXP: 01/17/2024 1630 RT Hazardous Chemotherapy Drug: Use appropriate PPE. Antineoplastic Irritant.Start: 01-08-2024 End: ,800 mg (rounded from 1,890 mg = 1,000 mg/m2 1.89 m2 Treatment plan adjusted BSA), INTRAVENOUS, Administer over 30 Minutes, ONCE, 1 dose, On Sun01/08/24 at 1000, EXP: 01/09/2024 1600 RT Hazardous Chemotherapy Drug: Use appropriate PPE. Antineoplastic Irritant.gemcitabine 2,000 mg in NaCl 0.9% 327.6 mL (GEMZAR) (6 sources)Start: 12-24-2023 End: ,000 mg (rounded from 2,050 mg = 1,000 mg/m2 2.05 m2 Treatment Plan BSA from Recorded weight), INTRAVENOUS, Administer over 30 Minutes, ONCE, 1 dose, On Sun12/24/23 at 1130, EXP: 32912/26/23 Hazardous Chemotherapy Drug: Use appropriate PPE. Antineoplastic Irritant.Start: 12-17-2023 End: 18-79-3625kczqxbhezwj 2,000 mg in NaCl 0.9% 327.6 mL (GEMZAR)Start: 12-03-2023 End: 06-67-3839druezahfbky 2,000 mg in NaCl 0.9% 327.6 mL (GEMZAR)Start: 11-26-2023 End: 04-19-7100mjpsjhnfwxj 2,000 mg in NaCl 0.9% 327.6 mL (GEMZAR)Start: 11-12-2023 End: 23-52-2464vnwzryhmucl 2,000 mg in NaCl 0.9% 327.6 mL (GEMZAR)Start: 11-05-2023 End: 03-31-9472bxmmmydcnki 2,000 mg in NaCl 0.9% 327.6 mL (GEMZAR)lidocaine hydrochloride 0.02 mg/mg topical gel (4 sources)Antiarrhythmic, Amide Local AnestheticStart: 01-04-2024 End: 43-51-0184wvzscuknf urojet 2 % 11 mL topical gel (GLYDO)Start: 01-04-2024 End: mL, URETHRAL, ONCE (UP TO 30 DAYS AMB), 1 dose, On Sun01/04/24 at 0830, FOR EXTERNAL USE ONLY APPLY TO: UrethraStart: 10-05-2023 End: 99-11-8661poxhhmbsd urojet 2 % 11 mL topical gel (GLYDO)NaCl 0.9% 1,000 mL (1 source)Start: 11-12-2023 End: 41-15-9944GxTi 0.9% 1,000 mL24 hr oxybutynin chloride 10 mg extended release oral tablet (3 sources)Cholinergic Muscarinic AntagonistStart: 09-07-2023 End: 08-69-6616uhzs 1 tablet by mouth once daily as needed for muscle spasms oxybutynin ER (DITROPAN XL) 10 mg 24 hr tablet Take 1 tablet by mouth once daily as needed for up to 7 days. NEEDED FOR BLADDER SPASM - STOP THE DAY PRIOR TO CATHETER REMOVAL 7 tablet 0 Discontinued (Discontinued by Patient)5 ml palonosetron 0.05 mg/ml injection (8 sources)Serotonin-3 Receptor AntagonistStart: 01-15-2024 End: .25 mg, INTRAVENOUS, ONCE, 1 dose, On Sun01/15/24 at 1030, Flush IV line with NS prior to and following administration.Start: 01-08-2024 End: 40.25 mg, INTRAVENOUS, ONCE, 1 dose, On Sun01/08/24 at 1000, Flush IV line with NS prior to and following administration.Start: 12-24-2023 End: 40.25 mg, INTRAVENOUS, ONCE, 1 dose, On Sun12/24/23 at 1130, Flush IV line with NS prior to and following administration.Start: 12-17-2023 End: 92-88-7704jwakviuzydru 0.25 mg injection (ALOXI)Start: 12-03-2023 End: 17-30-2785rxhifltjaqbc 0.25 mg injection (ALOXI)Start: 11-26-2023 End: 82-80-1861qulilpvslobg 0.25 mg injection (ALOXI)Start: 11-12-2023 End: 67-66-2035tgsaplpkooxp 0.25 mg injection (ALOXI)Start: 11-05-2023 End: 29-32-2851jbxnalfwqqmc 0.25 mg injection (ALOXI)Psyllium Seed-Sucrose (METAMUCIL, SUGAR,) (12 sources) End: 76-55-3454Cbccwknh Seed-Sucrose (METAMUCIL, SUGAR,) Take 1 Tablespoonful by mouth once daily. 0 11/26/2023 DiscontinuedPsyllium Seed-Sucrose (METAMUCIL, SUGAR,) Take 1 Tablespoonful by mouth once daily. 0 Activerosuvastatin calcium 5 mg oral tablet (20 sources)HMG-CoA Reductase InhibitorStart: 07-21-2023 End: 17-64-9536wtxd 1 tablet by mouth once dailyrosuvastatin (CRESTOR) 5 mg tablet Take 5 mg by mouth once daily. 07/21/2023 11/26/2023 Discontinued End: 71-38-9715iduv 1 tablet by mouth in the morningrosuvastatin (Crestor) 20 MG tablet Take 20 mg by mouth in the morning. 01/08/2025 DiscontinuedComment on above:Take 5 mg by mouth once daily.1000 ml sodium chloride 9 mg/ml injection (16 sources)Start: 01-15-2024 End: mL/hr, INTRAVENOUS, Administer over 1 Hours, ONCE, 1 dose, On Sun01/15/24 at 1030, Give after chemotherapy.Start: 01-15-2024 End: ,000 mL, INTRAVENOUS, at 999 mL/hr, Administer over 1 Hours, ONCE, 1 dose, On Sun01/15/24 at 1030,Administer prior to chemotherapy.Start: 01-08-2024 End: mL/hr, INTRAVENOUS, Administer over 1 Hours, ONCE, 1 dose, On Sun01/08/24 at 1000, Give after chemotherapy.Start: 01-08-2024 End: ,000 mL, INTRAVENOUS, at 999 mL/hr, Administer over 1 Hours, ONCE, 1 dose, On Sun01/08/24 at 1000, Administer prior to chemotherapy.Start: 12-24-2023 End: 35-93-9116535 mL, INTRAVENOUS, at 999 mL/hr, Administer over 0.5 Hours, ONCE, 1 dose, On Sun12/24/23 at 1130,Administer prior to chemotherapy.Start: 12-17-2023 End: 99-41-3189YsKf 0.9% iv infusionStart: 12-17-2023 End: 06-05-8817NhRm 0.9% iv bolus 1,000 mLStart: 12-03-2023 End: 54-45-6509FvYo 0.9% iv infusionStart: 12-03-2023 End: 92-46-4952SbDe 0.9% iv bolus 1,000 mLStart: 11-26-2023 End: 69-97-3896ZtVt 0.9% iv infusionStart: 11-26-2023 End: 38-21-3739IfUq 0.9% iv bolus 1,000 mLStart: 11-12-2023 End: 41-52-5424FmLr 0.9% iv bolus 1,000 mLStart: 11-05-2023 End: 91-42-9950NcIt 0.9% iv infusionStart: 11-05-2023 End: 92-88-9015YuEg 0.9% iv bolus 1,000 mLStart: 08-24-2023 End: .9 % sodium chloride (NACL 0.9%) infusion Administer at rate defined per CT contrast administration specifications. To be provided with radiology test. 150 mL 0 08/24/2023 08/24/2023 ActiveComment on above:Administer at rate defined per CT contrast administration specifications. To be provided with radiology test.sodium zirconium cyclosilicate 80833 mg powder for oral suspension (10 sources) End: 89-28-9921tdaekx zirconium cyclosilicate (LOKELMA) 10 gram oral packet Take 10 g by mouth every other day. 0 11/26/2023 Discontinuedsodium zirconium cyclosilicate (LOKELMA) 10 gram oral packet Take 10 g by mouth. Twice daily today.Then once daily beginning 11/01/23. 0 Activesulfamethoxazole 800 mg / trimethoprim 160 mg oral tablet (13 sources)Dihydrofolate Reductase Inhibitor Antibacterial, Sulfonamide AntimicrobialStart: 09-01-2024 End: 18-84-7757biij 1 tablet by mouth twice dailysulfamethoxazole-trimethoprim (BACTRIM DS) 800-160 mg per tablet Indications: Acute cystitis without hematuria Take 1 tablet by mouth two times a day for 10 days. 20 tablet 09/01/2024 09/11/2024 ExpiredStart: 01-04-2024 End: 83-75-0311rwfvoqsbgyjjveqo-trimethoprim 800-160 mg 1 tablet (BACTRIM DS) Start: 01-04-2024 End: 59-91-6676qxiu 1 tablet by mouth once, then take 1 tablet by mouth every 30 days1 tablet, ORAL, ONCE (UP TO 30 DAYS AMB), 1 dose, On Sun01/04/24 at 0830, Antimicrobial indication:ProphylaxisStart: 10-05-2023 End: 15-51-8041rkclyfxhjlxbkfui-trimethoprim 800-160 mg 1 tablet (BACTRIM DS) tamsulosin hydrochloride 0.4 mg oral capsule (20 sources)alpha-Adrenergic BlockerStart: 09-07-2023 End: 54-30-7799fugh 1 capsule by mouth once daily at bedtimetamsulosin (FLOMAX) 0.4 mg Take 1 capsule by mouth daily at bedtime. 30 capsule 09/07/2023 Discontinuedtamsulosin HCl (TAMSULOSIN ORAL) Take by mouth. Active Problems Active Problems Problem ClassificationProblemDateDocumented DateEpisodic/ChronicCancer of bladder (20 sources)Malignant tumor of urinary bladder; Translations: [Malignant neoplasm of bladder, unspecified]Onset: 10-22-2023 Resolved: 651753-74-4523YwsenzdLofbnl of bladder (2 sources)H/O: malignant neoplasm; Translations: [Personal history of malignant neoplasm of bladder]Onset: 557693-05-1379KpoosaavVhjxiw of prostate (2 sources)Malignant tumor of prostate; Translations: [Malignant neoplasm of prostate]Onset: 883129-32-7147MeapeenLyxsjqa kidney disease (2 sources)Chronic kidney disease stage 3B ; Translations: [Stage 3b chronic kidney disease (CMS-HCC)]29-09-5162JgoozfxPwnxmepfwi heart failure; nonhypertensive (6 sources)Heart failure; Translations: [Heart failure, unspecified]01-08-2025 ChronicDeficiency and other anemia (1 source)Anemia; Translations: [Anemia, unspecified]65-71-7160UdqstnyeJwnaozid mellitus without complication (3 sources)Prediabetes; Translations: [Prediabetes]Onset: EpisodicDisorders of lipid metabolism (20 sources)Hyperlipidemia; Translations: [Hyperlipidemia, unspecified]Onset: 08-28-2023 Resolved: 098371-97-8991LsbegqzMhanzzwjr hypertension (20 sources)Hypertensive disorder; Translations: [Essential (primary) hypertension]Onset: 08-28-2023 Resolved: 267674-90-8589SxsbflrLbcbnzfpryadg symptoms and ill-defined conditions (16 sources)History of urinary tract infection; Translations: [Personal history of urinary (tract) infections]Onset: 61-24-0457BxtmkkilRllqedvvpys of prostate (4 sources)Benign prostatic hypertrophy with outflow obstruction; Translations: [Benign prostatic hyperplasia with lower urinary tract symptoms]05-22-2019 ChronicOsteoarthritis (18 sources)Bilateral osteoarthritis of knees; Translations: [Bilateral primary osteoarthritis of knee]Onset: 958435-44-7120XmlnvokEwsba and ill-defined heart disease (18 sources)Left ventricular systolic dysfunction; Translations: [Other ill- defined heart diseases]Onset: 655829-13-8124IbwecrwNhjah connective tissue disease (1 source)Swelling of upper limb; Translations: [Other specified soft tissue disorders]68-43-5324RqzzbwrhGsmjd diseases of bladder and urethra (5 sources)Flaccid neurogenic bladder; Translations: [Flaccid neuropathic bladder, not elsewhere classified]Onset: 63-77-6934AuwcvdyQgddf diseases of bladder and urethra (5 sources)Lesion of bladder; Translations: [Bladder disorder, unspecified] Onset: 580235-01-8298XdbzvkyGmqwf diseases of bladder and urethra (1 source)Neuromuscular dysfunction of bladder, unspecified; Translations: [Neurogenic bladder]Onset: 28-44-4253UjvwjvkRyjpe endocrine disorders (3 sources)Male xykztmsjipbn74-68-3349JdbwqczPkqsl injuries and conditions due to external causes (3 sources)Urine finding; Translations: [Abnormal urine levels of substances chiefly nonmedicinal as to source]37-60-4003PneiqcaoUhygm non-traumatic joint disorders (1 source)Effusion of joint; Translations: [Effusion, right elbow]12-17-2023 EpisodicOther nutritional; endocrine; and metabolic disorders (3 sources)Body mass index 25-29 - -35-8049QxeuuhovDsegt screening for suspected conditions (not mental disorders or infectious disease) (2 sources)Imaging of thyroid gland abnormal; Translations: [Abnormal findings on diagnostic imaging of other specified body structures]97-55-2880Fusxhfr Residual codes; unclassified (2 sources)Contact with and (suspected) exposure to other hazardous, chiefly nonmedicinal, chemicals; Translations: [Contact with and (suspected) exposure to other potentially hazardous chemicals]81-04-9260OoruaypqYaxrwwj disorders (20 sources)Thyroid nodule; Translations: [Nontoxic single thyroid nodule]Onset: 687577-00-6444RoxtkiuAmnexer disorders (2 sources)Thyroid dysfunction; Translations: [Disorder of thyroid, unspecified] 32-08-8046YuswthjxRdvbcue tract infections (1 source)Acute cystitis; Translations: [Acute cystitis without hematuria] 39-39-8080Jhroixif Past or Other Problems Problem ClassificationProblemDateDocumented DateEpisodic/Chronic Administrative/social admission (20 sources)Patient encounter status; Translations: [Encounter for other administrative examinations]Onset: 07-14-2024 Resolved: 452931-60-0408UrflgimqIxtaotgia and vision defects (20 sources)Astigmatism; Translations: [Unspecified astigmatism, unspecified eye]Onset: 07-14-2024 Resolved: 452965-74-9713UrwimfrnOczogyyykiaxp of surgical procedures or medical care (20 sources)Anemia due to antineoplastic chemotherapy; Translations: [Antineoplastic chemotherapy induced anemia]Onset: 01-28-2024 Resolved: 429792-37-2677JmoftbwSvbrlyyv (20 sources)Ocular hypertension; Translations: [Ocular hypertension, unspecified eye]Onset: 07-14-2024 Resolved: 566822-20-8858ThekkyyRuqk disorders (3 sources)Mood disordersOnset: 154889-79-0159Jnilnebci of unspecified nature or uncertain behavior (9 sources)Neoplasm of bladder; Translations: [Neoplasm of unspecified behavior of bladder]Onset: 03-31-5904HivkznjtCmrzo diseases of bladder and urethra (20 sources)Diverticulum of bladder; Translations: [Diverticulum of bladder] Onset: 08-28-2023 Resolved: 945294-61-3224CwcvsueMbzxf diseases of bladder and urethra (20 sources)Neurogenic bladder; Translations: [Neuromuscular dysfunction of bladder, unspecified]Onset: 08-28-2023 Resolved: 056800-51-0749RtfhtpvQlysp eye disorders (20 sources)Excess skin of eyelid; Translations: [Dermatochalasis of unspecified eye, unspecified eyelid]Onset: 07-14-2024 Resolved: 494741-81-6655WucxmunxVzxlu screening for suspected conditions (not mental disorders or infectious disease) (7 sources)Coag./bleeding tests abnormal; Translations: [Abnormal coagulation profile]Onset: 898444-42-2502WnfcjjncQmebjqwj codes; unclassified (20 sources)Contact with and (suspected) exposure to other hazardous substances; Translations: [Contact with and (suspected) exposure to other potentially hazardous substances]Onset: 07-14-2024 Resolved: 598659-23-3198Xbnxjuxt Results Test NameValueInterpretationReference RangeFaWellmont Health System 23-96-5413BSJHJeuovc TextNormalCTriHealth Bethesda North Hospital 14-19-3732QMGIWaqlaf Visit (UROLAV) SIERRAJOLLY ([id number]) 1945 M Date Time Provider Department 02/27/25 11:30 AM ABHISHEK DURAN During your visit today, we recorded the following information about you: Alen Norton RN 02/27/2025 12:34 PM Signed PROCEDURE NURSE ASSESSMENT Patient ID with two(2)identifiers verified by: Alen Norton RN Procedure Indication: Cystoscopy February 27, 2025, Time In: 1130 Consent signed:Yes Back Office UA obtained: no Antibiotic given: Yes Heart valve replacement: No Joint replacement: No (Please inform provider if either above replacements were within the last 2 years) Patient Prep: Betadine Scrub to perineum and placement of Sterile Drape. COMPLETED UNIVERSAL PROTOCOL / SAFETY CHECKLIST Procedure to be performed: Cystoscopy Sign in Communication: Completed Time Out: Team Confirms the Correct Patient, Correct Procedure, Correct Site and Site Marking, Correct Position (if applicable) Sign Out Discussion: Completed Instruction sheet given and reviewed and patient verbalizes understanding: yes HANK Roque Shannon M, RN 02/27/2025 11:26 AM Signed After your Cystoscopy with Dr. Duran You have undergone a cystoscopy. Your doctor has inserted a telescope into your urinary bladder through your urethra to view the inside of your bladder. WHAT TO EXPECT: Possible burning during urination and/or blood-tinged urine. WHAT TO DO: Resume normal activity and medications. Drink 6-8 glasses of fluid each day for 3 days to help flush your urinary system. MEDICATIONS: You were given a preventative antibiotic prior to the procedure. WHEN TO CALL THE DOCTOR: IF you have a fever over 100 degrees Fahrenheit IF you are unable to urinate IF blood clots form in your urine If your urine becomes very bloody and does not clear with drinking extra fluids. Please call the [facility] office at [phone] Sunday-Sunday 8 am - 5 pm with any questions you may have and ask for the Urology nurses. If you call after 5 PM or on the weekends, please call [phone] Abhishek Duran MD 02/27/2025 12:34 PM Signed CC: Bladder cancer The patient [...] perivesical fat s/p partial cystectomy on 09/06/2023. TURBT 02/18/2024 Bladder mucosa with mixed acute and chronic inflammation and reactive changes, He is Presenting for surveillance cystoscopy. He doesn't have any gross hematuria Previous patient of Dr. Will: The patient was on chemotherapy with cisplatin plus gemcitabine 2 weeks on [address] Dasilva started 11/05/2023. CT Urogram 10/28/2024: 1. Asymmetric thickening of the right lateral [...] metastatic disease in the abdomen or pelvis. CT Abd/Chest 06/04/2024- Right lateral bladder wall [...] NOTE/ UNIVERSAL PROTOCOL/ SAFETY CHECKLIST Sign In Hi (more content not included)...NormalAshtabula County Medical CenterCYTOLOGY NON-GYNon 86-41-0711NJ DISCLAIMERNormTriHealth McCullough-Hyde Memorial HospitalComment on above:Order Comment: Specimen Type: SPECIMEN OBTAINED BY LAVAGEOrdering Facility: [facility] Address: [address], [place] [address]Mgvvul Comment: Laboratory Developed Test (LDT) Disclaimer: Performance characteristics of immunohistochemical, immunofluorescent, and chromogenic in-situ hybridization tests have been determined by the performing laboratory within the [facility] Department of Pathology and Laboratory Medicine ([facility], [facility], [facility], [facility], [facility], [facility], or [facility]) in a manner consistent with CLIA requirements. One or more of these tests may not have been cleared or approved by the FDA. The [facility] Department of Pathology and Laboratory Medicineis regulated under CLIA as qualified to perform high-complexity testing. These tests are used for clinical purposes. These should not be regarded as investigational or for research. Positive and negative controls stain appropriately.Performed By: #### FINA ####[facility] LABORATORYCLIA [id number] [place] [id number] [facility] LABORATORYCLIA [id number] [place], [place] [address] [place], [place] [address]CASE REPORTNormalCMetroHealth Parma Medical CenterComment on above:Order Comment: Specimen Type: SPECIMEN OBTAINED BY LAVAGEOrdering Facility: [facility] Address: [address], [place] [address]Cmdrzz Comment: Medical Cytology Report Case: [id number] Authorizing Provider: Abhishek Duran MD Collected: 02/27/2025 11:59 AM Ordering Location: Urology Received: 02/27/2025 01:17 PM Pathologist: Pablo Burton MD Specimen: BladderPerformed By: #### CYTONON ####[facility] LABORATORYCLIA [id number] [address] LABORATORYCLIA [id number] [place], [place] [address] [place] [address] HISTORYbladder cancerNormWright-Patterson Medical Center on above:Order Comment: Specimen Type: SPECIMEN OBTAINED BY LAVAGEOrdering Facility: [facility] Address: [address] [place], [place] [address]Performed By: #### CYTONON ####[facility] LABORATORYCLIA [id number] [address] LABORATORYCLIA [id number] [address] DIAGNOSISNoAultman Alliance Community Hospital on above:Order Comment: Specimen Type: SPECIMEN OBTAINED BY LAVAGEOrdering Facility: [facility] Address: [address] [place], [place] [address]Result Comment: A - Bladder, Wash: Negative for high-grade urothelial carcinoma. Abundant acute inflammation and bacteria. at 0906 EDTPerformed By: #### CYTONON ####[facility] LABORATORYCLIA [id number] [address] LABORATORYCLIA [id number] [address] PERFORMING LABNoLouis Stokes Cleveland VA Medical CenterCommclaren bay region on above:Order Comment: Specimen Type: SPECIMEN OBTAINED BY LAVAGEOrdering Facility: [facility] Address: [address] [place], [place] [address]Result Comment: Technical component, diesel mechanic screening performed at: [facility], [address] [place], [place] [address] CLIA: [id number] Diagnostic interpretation performed at: [facility], [address] [facility] [address] CLIA# [id number] Machine Paint Mixer: TIMOTEO Matoserformed By: #### CYTONON ####[facility] LABORATORYCLIA [id number] [place] [address] [facility] LABORATORYCLIA [id number] [place] [address] [facility]INE HOSPITALGRCONEMAUGH NASON MED[facility] DESCRIPTIONA. BladderNormalCKindred Healthcare on above:Order Comment: Specimen Type: SPECIMEN OBTAINED BY LAVAGEOrdering Facility: [facility] Address: [address] [place], [place] [address]Result Comment: 10 cc hazy light yellow fluid with particles. ThinPrep prepared.Performed By: #### CYTOSADIE ####[facility] LABORATORYCLIA [id number] [place] [address] [facility] LABORATORYCLIA [id number] [place] [address] [facility] W Auto Differential panel (Bld)on 51-33-5205Xjlfoejhx (Bld) [#/Vol]0.03 10*3/uLNormal<0.11CKindred Healthcare on above:Order Comment: Specimen Type: BLOOD SPECIMENOrdering Facility: [facility] Address:[address] [place], [place] [address]Performed By: #### 03350-8 ####[facility] LABCLIA [id number] [place], [place] [address]Ydpilhtrt/100 WBC (Bld)0.3 % NormalCommunity Memorial Hospital on above:Order Comment: Specimen Type: BLOOD SPECIMENOrdering Facility: [facility] Address:[address] [place], [place] [address]Performed By: #### 25373-0 ####[facility] LABCLIA [id number] [place] [address] Differential cell count method Nom (Bld)AutoNoLouis Stokes Cleveland VA Medical Center Comment on above:Order Comment: Specimen Type: BLOOD SPECIMENOrdering Facility: [facility] Address:[address] [place] [address] Performed By: #### 49058-4 ####[facility] LABCLIA [id number] [place], [place] [address]Sweosgccand (Bld) [#/Vol]0.05 10*3/uLNormal<0.46[facility] on above:Order Comment: Specimen Type: BLOOD SPECIMENOrdering Facility: [facility] Address:[address] [place], [place] [address]Performed By: #### 30273-9 ####[facility] LABCLIA [id number] [place], [place] [address]Moxumpirejd/100 WBC (Bld)0.5 %NormalCommunity Memorial Hospital on above:Order Comment: Specimen Type: BLOOD SPECIMENOrdering Facility: [facility] Address:[address] [place], [place] [address]Performed By: #### 69890-4 ####[facility] LABIA [id number] [place], [place] [address]Lpefhufoqsg distribution width (RBC) [Ratio]13.3 %Xsvhxs71.5-15.0[facility] on above: Order Comment: Specimen Type: BLOOD SPECIMENOrdering Facility: [facility] Address:[address] [place], [place] [address]Performed By: #### 98328- 8 ####[facility] LABCLIA [id number] [place], [place] [address]Kttubgqrdx (Bld) [Volume fraction]37.1 %Low39.0-51.0 [facility] on above:Order Comment: Specimen Type: BLOOD SPECIMENOrdering Facility: [facility] Address:[address] [place], [place] [address]Performed By: #### 98026-0 ####[facility] LABIA [id number] [place], [place] [address]Wmhjfvpebk (Bld) [Mass/Vol]12.1 g/dLLow13.0-17.0[facility] on above:Order Comment: Specimen Type: BLOOD SPECIMENOrdering Facility: [facility] Address:[address] [place], [place] [address]Performed By: #### 02889- 8 ####[facility] LABCLIA [id number] [place], [place] [address]Ucwgnuwl granulocytes (Bld) [#/Vol]0.03 10*3/uLNormal <0.10[facility] on above:Order Comment: Specimen Type: BLOOD SPECIMENOrdering Facility: [facility] Address:[address] [place], [place] [address]Performed By: #### 18404-0 ####[facility] LABCLIA [id number] [place], [place] [address]Vlcwuvjg granulocytes/100 WBC (Bld)0.3 %NormalCommunity Memorial Hospital on above: Order Comment: Specimen Type: BLOOD SPECIMENOrdering Facility: [facility] Address:[address] [place], [place] [address]Performed By: #### 23742- 8 ####[facility] LABCLIA [id number] [place], [place] [address]Hvynxburpvd (Bld) [#/Vol]1.59 10*3/uLNormal1.00-4.00 [facility] on above:Order Comment: Specimen Type: BLOOD SPECIMENOrdering Facility: [facility] Address:[address] [place], [place] [address]Performed By: #### 96266-3 ####[facility] LABCLIA [id number] [place], [place] [address]Shhqedpkwhs/100 WBC (Bld)16.8 %NormalCommunity Memorial Hospital on above:Order Comment: Specimen Type: BLOOD SPECIMENOrdering Facility: [facility] Address:[address] [place], [place] [address]Performed By: #### 93506-1 ####[facility] LABCLIA [id number] [place], [place] [address]DKR (RBC) [Entitic mass]31.1 svOkftsv62.0-34.0[facility] on above:Order Comment: Specimen Type: BLOOD SPECIMENOrdering Facility: [facility] Address:[address] [place], [place] [address]Performed By: #### 96843-4 ####[facility] LABCLIA [id number] [place], [place] [address]DYOJ (RBC) [Mass/Vol]32.6 g/aCGqkjll04.5-36.0[facility] on above: Order Comment: Specimen Type: BLOOD SPECIMENOrdering Facility: [facility] Address:[address] [place], [place] [address]Performed By: #### 85179- 8 ####[facility] LABCLIA [id number] [place], [place] [address]LWV (RBC) [Entitic vol]95.4 fXEjjszr33.0-100.0[facility] on above:Order Comment: Specimen Type: BLOOD SPECIMENOrdering Facility: [facility] Address:[address] [place], [place] [address]Performed By: #### 18503-7 ####[facility] LABCLIA [id number] [place], [place] [address]Yqukrelaw (Bld) [#/Vol]0.70 10*3/uLNormal<0.87[facility] on above:Order Comment: Specimen Type: BLOOD SPECIMENOrdering Facility: [facility] Address:[address] [place], [place] [address]Performed By: #### 96081- 8 ####[facility] LABCLIA [id number] [place], [place] [address]Pyzxnjuuy/100 WBC (Bld)7.4 %NormalCommunity Memorial Hospital on above:Order Comment: Specimen Type: BLOOD SPECIMENOrdering Facility: [facility] Address:[address] [place], [place] [address]Performed By: #### 76449-4 ####[facility] LABCLIA [id number] [place], [place] [address]Vffzztyenih (Bld) [#/Vol]7.07 10*3/uLNormal1.45-7.50[facility] on above:Order Comment: Specimen Type: BLOOD SPECIMENOrdering Facility: [facility] Address:[address] [place], [place] [address]Performed By: #### 82826-2 ####[facility] LABCLIA [id number] [place], [place] [address]Dqnuiimkoou/100 WBC (Bld)74.7 %NormalCommunity Memorial Hospital on above:Order Comment: Specimen Type: BLOOD SPECIMENOrdering Facility: [facility] Address:[address] [place], [place] [address]Performed By: #### 45404-5 ####[facility] LABCLIA [id number] [place], [place] [address]Atblderqg RBC (Bld) [#/Vol] 10*3/uLNormal<0.01[facility] on above:Order Comment: Specimen Type: BLOOD SPECIMENOrdering Facility: [facility] Address:[address] [place], [place] [address]Performed By: #### 13683-6 ####[facility] LABCLIA [id number] [place], [place] [address]Nuurpfgki RBC/100 WBC (Bld) [Ratio]0.0 /100 WBCNormal [facility] on above:Order Comment: Specimen Type: BLOOD SPECIMENOrdering Facility: [facility] Address:[address] [place], [place] [address]Performed By: #### 99160-3 ####[facility] LABCLIA [id number] [place], [place] [address]Earclgbh mean volume (Bld) [Entitic vol]10.6 fLNormal9.0-12.7CKindred Healthcare on above:Order Comment: Specimen Type: BLOOD SPECIMENOrdering Facility: [facility] Address:[address] [place] [address] Performed By: #### 52597-6 ####[facility] LABCLIA [id number] [place], [place] [address]Adbhfmknb (Bld) [#/Vol]163 10*3/aKSxrlno831-997VhesxhmqeCommunity Memorial Hospital on above:Order Comment: Specimen Type: BLOOD SPECIMENOrdering Facility: [facility] Address:[address] [place], [place] [address]Performed By: #### 30459-0 ####[facility] LABIA [id number] [place], [place] [address]QMF (Bld) [#/Vol]3.89 10*6/uLLow4.20-6.00[facility] on above:Order Comment: Specimen Type: BLOOD SPECIMENOrdering Facility: [facility] Address:[address] [place], [place] [address]Performed By: #### 69117-9 ####[facility] LABIA [id number] [place], [place] [address]DWL (Bld) [#/Vol]9.47 10*3/uL Normal3.70-11.00[facility] on above:Order Comment: Specimen Type: BLOOD SPECIMENOrdering Facility: [facility] Address:[address] [place], [place] [address]Performed By: #### 71719-1 ####[facility] LABCLIA [id number] [place], [place] [address]Rriuyhdgiksbl metabolic 2000 panelon 79-12-3376Yxcoied [Mass/Vol]4.1 g/dLNormal3.9-4.9CKindred Healthcare on above:Order Comment: Specimen Type: BLOOD SPECIMENOrdering Facility: [facility] Address:[address] [place], [place] [address]Performed By: #### 44442- 8 ####[facility]AKDCNA[facility] LABCLIA [id number] ONEL MALDONADOBANNER ESTRELLA MEDICAL [place]ENTERPEDRO [place] [address]CIM [Catalytic activity/Vol]94 U/XJgyiqc24-038ByoocpumiCommunity Memorial Hospital on above:Order Comment: Specimen Type: BLOOD SPECIMENOrdering Facility: [facility] Address:[address] [place], [place] [address]Performed By: #### 18909-0 ####[facility] LABCLIA [id number] JENNANAVAL [facility] CENTER SAN DIEGOERICABANNER ESTRELLA MEDICAL CENTERPEDRO [place], [place] [address]HIM [Catalytic activity/Vol]12 U/LJtfsnx76-45HsqnyllcsCommunity Memorial Hospital on above:Order Comment: Specimen Type: BLOOD SPECIMENOrdering Facility: [facility] Address:[address] [place], [place] [address]Performed By: #### 11930- 8 ####[facility] LABCLIA [id number] JENNARY OTONIEL MALDONADOBANNER ESTRELLA MEDICAL CENTERPEDRO [place], [place] [address]Vcnqx gap [Moles/Vol]9 mmol/LNormal8-15[facility] on above:Order Comment: Specimen Type: BLOOD SPECIMENOrdering Facility: [facility] Address:[address] [place], [place] [address]Performed By: #### 46356-6 ####[facility] LABCLIA [id number] JENNA OTONIELPADMINIBANNER ESTRELLA MEDICAL [place]ENTERPED[place] [address]MRN [Catalytic activity/Vol]15 U/GCneqzs28-17WpjujqdsoCommunity Memorial Hospital on above:Order Comment: Specimen Type: BLOOD SPECIMENOrdering Facility: [facility] Address:[address] [place], [place] [address]Performed By: #### 79150-1 ####[facility] LABCLIA [id number] [place] [address] Bilirubin [Mass/Vol]0.4 mg/dLNormal0.2-1.3CKindred Healthcare on above:Order Comment: Specimen Type: BLOOD SPECIMENOrdering Facility: [facility] Address:[address] [place], [place] [address]Performed By: #### 85075-0 ####[facility] LABCLIA [id number] [facility]OVE HOSPITALPADMINIOLIVIA, [place] [address]Wsxrbtv [Mass/Vol]9.2 mg/dLNormal8.5-10.2CKindred Healthcare on above:Order Comment: Specimen Type: BLOOD SPECIMENOrdering Facility: [facility] Address:[address] [place], [place] [address]Performed By: #### 57426-6 ####[facility] LABCLIA [id number] [facility]OVE HOSPITALPADMINIOLIVIA, [place] [address]Mqyrikub [Moles/Vol]102 mmol/HMlymqp11-711RlzyciiskCommunity Memorial Hospital on above: Order Comment: Specimen Type: BLOOD SPECIMENOrdering Facility: [facility] Address:[address] [place], [place] [address]Performed By: #### 34972- 8 ####[facility] LABCLIA [id number] [facility] OTONIEL MALDONADOBANNER ESTRELLA MEDICAL CENTERSTEPHANIANEW [place], [place] [address]IX9 [Moles/Vol]26 mmol/QNubyoa91-13NsiuynqibCommunity Memorial Hospital on above:Order Comment: Specimen Type: BLOOD SPECIMENOrdering Facility: [facility] Address:[address] [place], [place] [address]Performed By: #### 86888-9 ####[facility] LABCLIA [id number] [facility] HOSPITALPADMINIBANNER ESTRELLA MEDICAL CENTERSTEPHANIANEW [place], [place] [address]Sbyyiezlfx [Mass/Vol]1.67 mg/dL High0.73-1.22[facility] on above:Order Comment: Specimen Type: BLOOD SPECIMENOrdering Facility: [facility] Address:[address] [place], [place] [address]Performed By: #### 41019-3 ####[facility] LABCLIA [id number] [place] [address] eGFRcr SerPlBld CKD-EPI 797370 mL/min/1.73m???Low>=60[facility] Comment on above:Order Comment: Specimen Type: BLOOD SPECIMENOrdering Facility: [facility] Address:[address] [place], [place] [address]Result Comment: Estimated Glomerular Filtration Rate (eGFR) is calculated using the 2020 CKD-EPI creatinine equation. This equation utilizes serum creatinine, sex, and age as parameters. The creatinine assay has traceable calibration to isotope dilution-mass spectrometry. Refer to KDIGO guidelines for clinical interpretation. In patients with unstable renal function, e.g. those with acute kidney injury, the eGFR may not accurately reflect actual GFR.Performed By: #### 72615-6 ####[facility] LABIA [id number] [place], [place] [address]Nlysmfr [Mass/Vol]162 mg/aJEtzc61-68HqfsdnwncAshtabula County Medical CenterComment on above:Order Comment: Specimen Type: BLOOD SPECIMENOrdering Facility: [facility] Address:[address] [place] [address] Comment: The [place] Diabetes Association (ADA) provides guidance for cutoff values for fasting glucose and random glucose. The ADA defines fasting as no caloric intake for at least 8 hours. Fasting plasma glucose results between 100 to 125 mg/dL indicate increased risk for diabetes (prediab etes). Fasting plasma glucose results greater than or [...] Standards of Medical Care in Diabetes 2016, [place] Diabetes Association. Diabetes Care. 2016.39(Suppl 1).Performed By: #### 31764-7 ####[facility] LABCLIA [id number] [place], [place] [address]Yuijwoqab [Moles/Vol]4.7 mmol/LNormal3.7-5.1CKindred Healthcare on above:Order Comment: Specimen Type: BLOOD SPECIMENOrdering Facility: [facility] Address:[address] [place], [place] [address]Performed By: #### 88074-1 ####[facility] LABCLIA [id number] [place], [place] [address]Kvllpwc [Mass/Vol]7.3 g/dLNormal6.3-8.0[facility] on above:Order Comment: Specimen Type: BLOOD SPECIMENOrdering Facility: [facility] Address:[address] [place], [place] [address]Performed By: #### 25550- 8 ####[facility] LABCLIA [id number] [place], [place] [address]Xvdgns [Moles/Vol]137 mmol/BBfudkd405-733LhzbvhiipCommunity Memorial Hospital on above:Order Comment: Specimen Type: BLOOD SPECIMENOrdering Facility: [facility] Address:[address] [place], [place] [address]Performed By: #### 96846-7 ####[facility] LABCLIA [id number] [place], [place] [address]Yxxn nitrogen [Mass/Vol]35 mg/dLHigh9-24[facility] on above:Order Comment: Specimen Type: BLOOD SPECIMENOrdering Facility: [facility] Address:[address] [place], [place] [address]Performed By: #### 62740-3 ####[facility] LABCLIA [id number] [place] [address] HbA1c (Bld)on 58-60-8975Bbzhxnl glucose Estimated from glycated hemoglobin (Bld) [Mass/Vol]128 mg/dLNormalCKindred Healthcare on above:Order Comment: Specimen Type: BLOOD SPECIMENOrdering Facility: [facility] ([facility]) [facility] Address: [address] [place] [address]Fvupuf Comment: eAG: (Estimated average glucose) is a calculated value from HgbA1c and is field marketing representative of the average blood glucose level in the last 2-3 month period.Performed By: #### 29896-0 ####[facility] [facility] LABCLIA [id number] [address] [address] [place] HbA1c (Bld) [Mass fraction]6.1 %High4.3-5.6CMetroHealth Parma Medical CenterComment on above:Order Comment: Specimen Type: BLOOD SPECIMENOrdering Facility: [facility] ([facility]) [facility] Address: [address] [place] [address] 15292Jstnbn Comment: [place] Diabetes Association guidelines indicate that patients with HgbA1c in the range 5.7-6.4% are at increased risk for development of diabetes, and intervention by lifestyle modification may be beneficial. HgbA1c greater or equal to 6.5% is considered diagnostic of diabetes.Performed By: #### 07058-5 ####[facility] LABIA [id number] [address] [address] [facility] G[facility]ION HOSPITALLipid 1996 panelon 47-19-4715Tppmsipisby [Mass/Vol]169 mg/dLNormal<200[facility] Comment on above:Order Comment: Specimen Type: BLOOD SPECIMENOrdering Facility: [facility] ([facility]) [facility] Address: [address] [place] [address] 114[address]Jojgbh Comment: <200 mg/dL, Desirable 200-239 mg/dL, Borderline high >239 mg/dL, HighPerformed By: #### 71967-5 ####[facility] LABCLIA [id number] [address] [address] [facility] LABCLIA [id number] [place], [place] [address]Dxbbsfmyqwd in HDL [Mass/Vol]33 mg/dLLow>39[facility] on above:Order Comment: Specimen Type: BLOOD SPECIMENOrdering Facility: [facility] ([facility]) [facility] Address: [address] [place] [address]Jfeiqe Comment: 40-59 mg/dL, Acceptable >59 mg/dL, High: Negative risk factor for coronary heart disease <40 mg/dL, Low: Positive risk factor for coronary heart diseasePerformed By: #### 57308-0 ####[facility] LABCLIA [id number] [address] LABCLIA [id number] [place] [address] Cholesterol in LDL [Mass/Vol]111 mg/dLHigh<100[facility] on above:Order Comment: Specimen Type: BLOOD SPECIMENOrdering Facility: [facility] ([facility]) [facility] Address: [address] [place] [address] Comment: <100 mg/dL, Optimal 100-129 mg/dL, Near optimal/above optimal 130-159 mg/dL, Borderline high 160-189 mg/dL, High >189 mg/dL, Very high Secondary prevention optimal LDL Cholesterol levels are recommended to be <70 mg/dL LDL cholesterol is calculated using the Marcus-NIH equation.Performed By: #### 75272-1 ####[facility] LABIA [id number] [address] LABCLIA [id number] [place] [address] Cholesterol in LDL/Cholesterol in HDL [Mass ratio]3.36 {ratio}High<2.54[facility] on above:Order Comment: Specimen Type: BLOOD SPECIMENOrdering Facility: [facility] ([facility]) [facility] Address: [address] [place] [address] 36[address]Xrjihh Comment: Reference: 1. National Cholesterol Education Program ATP III Guideline At-A-Glance Quick Desk Reference: National Heart, Lung, and Blood [place]. National Institutes of Health. 2001: NIH Publication No. 01-3305. 2. An International Atherosclerosis Society position paper: global recommendations for the management of dyslipidemia: executive summary, Atherosclerosis. 2014: 232(2):410-413.Performed By: #### 36970-1 ####[facility] LABCLIA [id number] [address] [address] [facility] LABCLIA [id number] [place], [place] [address]Wxvcbklvrrp in VLDL [Mass/Vol] 23 mg/dLNormal<30[facility] on above:Order Comment: Specimen Type: BLOOD SPECIMENOrdering Facility: [facility] ([facility] Address: [address] [place], [place] [address]Performed By: #### 41404-9 ####[facility] LABCLIA [id number] [address] [address] [facility] LABCLIA [id number] [place] [address] Cholesterol non HDL [Mass/Vol]136 mg/dLHigh<130[facility] on above:Order Comment: Specimen Type: BLOOD SPECIMENOrdering Facility: [facility] ([facility] Address: [address] [place] [address]Bxcniv Comment: <130 mg/dL, Optimal 130-159 mg/dL, Near optimal/above optimal 160-189 mg/dL, Borderline high 190-219 mg/dL, High >219 mg/dL, Very high Secondary prevention optimal non HDL Cholesterol levels are recommended to be <100 mg/dLPerformed By: #### 10767-4 ####[facility] LABCLIA [id number] [address] [address] [facility] LABCLIA [id number] [place], [place] [address]Pebeoleprok.total/Cholesterol in HDL [Mass ratio]5.12 {ratio}High<5.10[facility] on above:Order Comment: Specimen Type: BLOOD SPECIMENOrdering Facility: [facility] ([facility] Address: [address] [place] [address]Wpzfnnaqs By: #### 35950-2 ####[facility] LABCLIA [id number] [address] [address] [facility] LABCLIA [id number] [place], [place] [address]LCZQEZC TIME10 hrsNormalCKindred Healthcare on above:Order Comment: Specimen Type: BLOOD SPECIMENOrdering Facility: [facility] ([facility]) [facility] Address: [address] [place] [address]Bsbwsfrws By: #### 91808-1 ####[facility] LABCLIA [id number] [address] [address] [facility] LABCLIA [id number] [place] [address] Triglyceride [Mass/Vol]137 mg/dLNormal<150[facility] on above:Order Comment: Specimen Type: BLOOD SPECIMENOrdering Facility: [facility] ([facility]) [facility] Address: [address] [place] [address]Vndfbu Comment: <150 mg/dL, Normal 150-199 mg/dL, Borderline high 200-499 mg/dL, High >499 mg/dL, Very highPerformed By: #### 73533-4 ####[facility] LABCLIA [id number] [address] [address] [facility] LABCLIA [id number] [place], [place] [address]YGWPzb 26-20-1377WGNAAnpraetlw (LABSAN) RIGOJOLLY A ([id number]) 1945 M Date Time Provider Department 01/01/25 [...] Reviewed: 12/15/2024 Reviewed by: Jose Martin Hillman APRN.TRANSITION MANAGER - Fully Assessed Reason for Visit: Lab Orders [1688] Primary Visit Diagnosis:Malignant neoplasm of prostate (HCC) [C61] Order(s):COMPLETE BLOOD COUNT AND DIFFERENTIAL [SQCBCDIF] Order #: [id number] FUTURE COMPREHENSIVE METABOLIC PANEL [SQCMP] Order #: [id number] FUTURE Prescriptions as of 01/01/2025 - rosuvastatin (CRESTOR) 20 mg tablet Take 20 mg by mouth once daily. 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 David Capellan, RN Jose Martin Hillman APRN.TRANSITION MANAGER 12/15/2024 1:12 PM Signed Spoke with patient. All in agreement with plan. ThanksJose Martin APRN.TRANSITION MANAGER Allergies As of Date: 12/15/2024 (No Known Allergies) Date Reviewed: 12/15/2024 Reviewed by: Jose Martin Hillman APRN.TRANSITION MANAGER - Fully Assessed Reason for Visit: Care Coordination [3491] Cmt: Clinical update Prescriptions as of 12/15/2024 - rosuvastatin (CRESTOR) 20 mg tablet Take 20 mg by mouth once daily. 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 Encounter Status:Closed by JOSE MARTIN HILLMAN on 12/15/24NormalClevelAmerican Healthcare Systems W Auto Differential panel (Bld)on 41-13-9645Iaqtseqqw (Bld) [#/Vol] 0.03 10*3/uLNormal<0.11CKindred Healthcare on above:Order Comment: Specimen Type: BLOOD SPECIMENOrdering Facility: [facility] Address:[address] [place], [place] [address]Performed By: #### 02704-9 ####[facility] LABCLIA [id number] [place], [place] [address]Xuozfevsh/100 WBC (Bld)0.5 %NormalCommunity Memorial Hospital on above:Order Comment: Specimen Type: BLOOD SPECIMENOrdering Facility: [facility] Address:[address] [place], [place] [address]Performed By: #### 53100-1 ####[facility] LABCLIA [id number] [place], [place] [address]Sdrxblujizws cell count method Nom (Bld)AutoNormalCKindred Healthcare on above:Order Comment: Specimen Type: BLOOD SPECIMENOrdering Facility: [facility] Address:[address] [place], [place] [address]Performed By: #### 84487-8 ####[facility] LABCLIA [id number] [place], [place] [address]Xyqwabjaeau (Bld) [#/Vol]0.09 10*3/uLNormal<0.46[facility] on above:Order Comment: Specimen Type: BLOOD SPECIMENOrdering Facility: [facility] Address:[address] [place], [place] [address]Performed By: #### 80488-1 ####[facility] LABCLIA [id number] [place], [place] [address]Xkkwjgylzbe/100 WBC (Bld)1.5 %NormalCommunity Memorial Hospital on above:Order Comment: Specimen Type: BLOOD SPECIMENOrdering Facility: [facility] Address:[address] [place], [place] [address]Performed By: #### 21082-4 ####[facility] LABCLIA [id number] [place], [place] [address]Aspycditadk distribution width (RBC) [Ratio]13.2 %Normal 11.5-15.0[facility] on above:Order Comment: Specimen Type: BLOOD SPECIMENOrdering Facility: [facility] Address:[address] [place], [place] [address]Performed By: #### 15619-2 ####[facility] LABIA [id number] [place] [address] Hematocrit (Bld) [Volume fraction]36.3 %Low39.0-51.0[facility] Comment on above:Order Comment: Specimen Type: BLOOD SPECIMENOrdering Facility: [facility] Address:[address] [place] [address] Performed By: #### 55070-6 ####[facility] LABIA [id number] [place], [place] [address]Tfijawtjov (Bld) [Mass/Vol]11.9 g/dLLow13.0-17.0[facility] on above:Order Comment: Specimen Type: BLOOD SPECIMENOrdering Facility: [facility] Address:[address] [place], [place] [address]Performed By: #### 72833-5 ####[facility] LABIA [id number] [place], [place] [address]Tubsvodq granulocytes (Bld) [#/Vol]10*3/uLNormal<0.10 [facility] on above:Order Comment: Specimen Type: BLOOD SPECIMENOrdering Facility: [facility] Address:[address] [place], [place] [address]Performed By: #### 97210-3 ####[facility] LABIA [id number] [place], [place] [address]Ehmpptdb granulocytes/100 WBC (Bld)0.3 %NormalCommunity Memorial Hospital on above: Order Comment: Specimen Type: BLOOD SPECIMENOrdering Facility: [facility] Address:[address] [place], [place] [address]Performed By: #### 01681- 8 ####[facility] LABCLIA [id number] [place], [place] [address]Ddfjhnimlfx (Bld) [#/Vol]1.41 10*3/uLNormal1.00-4.00 [facility] on above:Order Comment: Specimen Type: BLOOD SPECIMENOrdering Facility: [facility] Address:[address] [place], [place] [address]Performed By: #### 98814-3 ####[facility] LABCLIA [id number] [place], [place] [address]Sckiyzndsiu/100 WBC (Bld)22.9 %NormalCommunity Memorial Hospital on above:Order Comment: Specimen Type: BLOOD SPECIMENOrdering Facility: [facility] Address:[address] [place], [place] [address]Performed By: #### 52142-4 ####[facility] LABCLIA [id number] [place], [place] [address]AKU (RBC) [Entitic mass]31.5 rqUpxueh10.0-34.0[facility] on above:Order Comment: Specimen Type: BLOOD SPECIMENOrdering Facility: [facility] Address:[address] [place], [place] [address]Performed By: #### 94173-4 ####[facility] LABIA [id number] [place], [place] [address]MLVV (RBC) [Mass/Vol]32.8 g/wMRykaxj03.5-36.0[facility] on above: Order Comment: Specimen Type: BLOOD SPECIMENOrdering Facility: [facility] Address:[address] [place], [place] [address]Performed By: #### 65495- 8 ####[facility] LABIA [id number] [place], [place] [address]SGJ (RBC) [Entitic vol]96.0 iXBnrgqn79.0-100.0[facility] on above:Order Comment: Specimen Type: BLOOD SPECIMENOrdering Facility: [facility] Address:[address] [place], [place] [address]Performed By: #### 68963-2 ####[facility] LABCLIA [id number] [place], [place] [address]Bpjbxwzux (Bld) [#/Vol]0.68 10*3/uLNormal<0.87[facility] on above:Order Comment: Specimen Type: BLOOD SPECIMENOrdering Facility: [facility] Address:[address] [place], [place] [address]Performed By: #### 46113- 8 ####[facility] LABCLIA [id number] [place], [place] [address]Sjumixvwt/100 WBC (Bld)11.0 %NormalCommunity Memorial Hospital on above:Order Comment: Specimen Type: BLOOD SPECIMENOrdering Facility: [facility] Address:[address] [place], [place] [address]Performed By: #### 45300-3 ####[facility] LABCLIA [id number] [place], [place] [address]Cadhcwpnqam (Bld) [#/Vol]3.93 10*3/uLNormal1.45-7.50[facility] on above:Order Comment: Specimen Type: BLOOD SPECIMENOrdering Facility: [facility] Address:[address] [place], [place] [address]Performed By: #### 65046-5 ####[facility] LABCLIA [id number] [place], [place] [address]Ujrtogxlxvz/100 WBC (Bld)63.8 %NormalCommunity Memorial Hospital on above:Order Comment: Specimen Type: BLOOD SPECIMENOrdering Facility: [facility] Address:[address] [place], [place] [address]Performed By: #### 12463-4 ####[facility] LABCLIA [id number] [place], [place] [address]Ymwapwizo RBC (Bld) [#/Vol] 10*3/uLNormal<0.01[facility] on above:Order Comment: Specimen Type: BLOOD SPECIMENOrdering Facility: [facility] Address:[address] [place], [place] [address]Performed By: #### 90608-3 ####[facility] LABCLIA [id number] [place], [place] [address]Vvtwpuxrs RBC/100 WBC (Bld) [Ratio]0.0 /100 WBCNormal [facility] on above:Order Comment: Specimen Type: BLOOD SPECIMENOrdering Facility: [facility] Address:[address] [place], [place] [address]Performed By: #### 12196-1 ####[facility] LABIA [id number] [place], [place] [address]Odneighf mean volume (Bld) [Entitic vol]9.7 fLNormal9.0-12.7CKindred Healthcare on above:Order Comment: Specimen Type: BLOOD SPECIMENOrdering Facility: [facility] Address:[address] [place] [address] Performed By: #### 32817-3 ####[facility] LABCLIA [id number] [place], [place] [address]Eloskhdvk (Bld) [#/Vol]154 10*3/aTQhmegy640-087RxtlivvrhCommunity Memorial Hospital on above:Order Comment: Specimen Type: BLOOD SPECIMENOrdering Facility: [facility] Address:[address] [place], [place] [address]Performed By: #### 33438-8 ####[facility] LABCLIA [id number] [place], [place] [address]SJS (Bld) [#/Vol]3.78 10*6/uLLow4.20-6.00[facility] on above:Order Comment: Specimen Type: BLOOD SPECIMENOrdering Facility: [facility] Address:[address] [place], [place] [address]Performed By: #### 21518-6 ####[facility] LABCLIA [id number] [place], [place] [address]EQV (Bld) [#/Vol]6.16 10*3/uL Normal3.70-11.00[facility] on above:Order Comment: Specimen Type: BLOOD SPECIMENOrdering Facility: [facility] Address:[address] [place], [place] [address]Performed By: #### 25179-7 ####[facility] LABCLIA [id number] [place], [place] [address]AIZKXVmt [id number] (SP) Office (HEMASA) JOLLY SIERRA ([id number]) 1945 M Date Time Provider Department 12/11/24 2:30 PM JOSE MARTIN HILLMAN During your visit today, we recorded the following information about you: Temperature Pulse Respiration Blood pressure 97.2 degrees 64/minute 16/minute 161/67 Weight Height 90.5 kg 1.778 m Jose Martin Hillman APRN.TRANSITION MANAGER 12/11/2024 6:24 PM Signed PATIENT NAME: Jolly Sierra DATE: 12/11/2024 PRIMARY CARE PHYSICIAN: Jose J Donaldson Jr DO OTHER PHYSICIANS: Dr. Jason Will, Dr. [...] WBC (k/uL) Date Value (more content not included)...NormalAshtabula County Medical CenterComprehensive metabolic 2000 panelon 84-58-4547Umpsemy [Mass/Vol]4.0 g/dLNormal3.9-4.9 [facility] CenterComment on above:Order Comment: Specimen Type: BLOOD SPECIMENOrdering Facility: [facility] Address:[address] [place], [place] [address]Performed By: #### 93227-7 ####ZAKDCNAYA [facility] LABCLIA [id number] [place], [place] [address]TCT [Catalytic activity/Vol]80 U/UUxqrak06-880VglabncdzCommunity Memorial Hospital on above:Order Comment: Specimen Type: BLOOD SPECIMENOrdering Facility: [facility] Address:[address] [place], [place] [address]Performed By: #### 29519- 8 ####[facility] LABCLIA [id number] ONEL MALDONADOBANNER ESTRELLA MEDICAL CENTERPEDRO [place], [place] [address]VYJ [Catalytic activity/Vol]12 U/DYbohxr53-17VcaxzxltaCommunity Memorial Hospital on above:Order Comment: Specimen Type: BLOOD SPECIMENOrdering Facility: [facility] Address:[address] [place], [place] [address]Performed By: #### 28248-9 ####[facility] LABCLIA [id number] [facility] [place], [place] [address]Xlehb gap [Moles/Vol]7 mmol/LLow8-15[facility] on above:Order Comment: Specimen Type: BLOOD SPECIMENOrdering Facility: [facility] Address:[address] [place], [place] [address]Performed By: #### 59749- 8 ####[facility] LABCLIA [id number] ONEL MALDONADOBANNER ESTRELLA MEDICAL [place]ENTERPEDRO [place] [address]USN [Catalytic activity/Vol]14 U/DFutptq84-12CakshdnspCommunity Memorial Hospital on above:Order Comment: Specimen Type: BLOOD SPECIMENOrdering Facility: [facility] Address:[address] [place], [place] [address]Performed By: #### 26737-7 ####[facility] LABIA [id number] [facility] OTONIELPADMINIBANNER ESTRELLA MEDICAL CENTERSTEPHANIANEW [place], [place] [address]Hdsmwfymc [Mass/Vol]0.3 mg/dLNormal0.2-1.3CKindred Healthcare on above:Order Comment: Specimen Type: BLOOD SPECIMENOrdering Facility: [facility] Address:[address] [place], [place] [address]Performed By: #### 28565- 8 ####[facility] LABCLIA [id number] [facility] [place], [place] [address]Bngbblu [Mass/Vol]9.4 mg/dLNormal8.5-10.2CKindred Healthcare on above:Order Comment: Specimen Type: BLOOD SPECIMENOrdering Facility: [facility] Address:[address] [place], [place] [address]Performed By: #### 84236-4 ####[facility] LABCLIA [id number] [place], [place] [address]Cslupsgk [Moles/Vol]106 mmol/L Fczqoh62-928GdupqftmeCommunity Memorial Hospital on above:Order Comment: Specimen Type: BLOOD SPECIMENOrdering Facility: [facility] Address:[address] [place], [place] [address]Performed By: #### 52937-6 ####[facility] LABIA [id number] [place] [address] CO2 [Moles/Vol]27 mmol/HVyyuie06-80HwqxgsduvCommunity Memorial Hospital on above: Order Comment: Specimen Type: BLOOD SPECIMENOrdering Facility: [facility] Address:[address] [place], [place] [address]Performed By: #### 07188- 8 ####[facility] LABCLIA [id number] [place], [place] [address]Apmuwpurwa [Mass/Vol]1.70 mg/dLHigh0.73-1.22[facility] on above:Order Comment: Specimen Type: BLOOD SPECIMENOrdering Facility: [facility] Address:[address] [place], [place] [address]Performed By: #### 03267-1 ####[facility] LABCLIA [id number] [place], [place] [address]pPSIup SerPlBld CKD-EPI 936241 mL/min/1.73m???Low>=60[facility] on above: Order Comment: Specimen Type: BLOOD SPECIMENOrdering Facility: [facility] Address:[address] [place], [place] [address]Rzijmr Comment: Estimated Glomerular Filtration Rate (eGFR) is calculated using the 2020 CKD-EPI cre atinine equation. This equation utilizes serum creatinine, sex, and age as parameters. The creatinine assay has traceable calibration to isotope dilution- mass spectrometry. Refer to KDIGO guidelines for clinical interpretation. In patients with unstable renal function, e.g. those with acute kidney injury, the eGFR may not accurately reflect actual GFR.Performed By: #### 74526-0 ####[facility] LABCLIA [id number] [place], [place] [address]Jwsuioy [Mass/Vol]110 mg/rCDvdq96-14LjtauwlloCommunity Memorial Hospital on above:Order Comment: Specimen Type: BLOOD SPECIMENOrdering Facility: [facility] Address:[address] [place], [place] [address]Ibsjez Comment: The [place] Diabetes Association (ADA) provides guidance for cutoff values for fasting glucose and random glucose. The ADA defines fasting as no caloric intake for at least 8 hours. Fasting plasma glucose results between 100 to 125 mg/dL indicate increased risk for diabetes (prediab etes). Fasting plasma glucose results greater than or [...] Standards of Medical Care in Diabetes 2016, [place] Diabetes Association. Diabetes Care. 2016.39(Suppl 1).Performed By: #### 32011-4 ####[facility] LABCLIA [id number] [place], [place] [address]Pmwylahee [Moles/Vol]4.8 mmol/LNormal3.7-5.1CKindred Healthcare on above:Order Comment: Specimen Type: BLOOD SPECIMENOrdering Facility: [facility] Address:[address] [place], [place] [address]Performed By: #### 42605-6 ####[facility] LABCLIA [id number] [facility]PITALRODO SIMMONSBANNER ESTRELLA MEDICAL CENTERPEDRO [place], [place] [address]Ugglamt [Mass/Vol]7.0 g/dLNormal6.3-8.0[facility] on above:Order Comment: Specimen Type: BLOOD SPECIMENOrdering Facility: [facility] Address:[address] [place], [place] [address]Performed By: #### 14773- 8 ####[facility] LABCLIA [id number] [facility] OTONIEL MALDONADOBANNER ESTRELLA MEDICAL CENTERSTEPHANIANEW [place], [place] [address]Jqzfbt [Moles/Vol]140 mmol/FLmsybv255-093YtiaxtzsjCommunity Memorial Hospital on above:Order Comment: Specimen Type: BLOOD SPECIMENOrdering Facility: [facility] Address:[address] [place], [place] [address]Performed By: #### 46791-8 ####[facility] LABCLIA [id number] [facility]PITALRODO SIMMONSBANNER ESTRELLA MEDICAL CENTERSTEPHANIANEW [place], [place] [address]Yind nitrogen [Mass/Vol]35 mg/dLHigh9-24[facility] on above:Order Comment: Specimen Type: BLOOD SPECIMENOrdering Facility: [facility] Address:[address] [place], [place] [address]Performed By: #### [id number] ####[facility] LABCLIA [id number] [place] [address] Albumin [Mass/Vol]4.0 g/dLNormal3.9-4.9CKindred Healthcare on above:Order Comment: Specimen Type: BLOOD SPECIMENOrdering Facility: [facility] Address:[address] [place], [place] [address]Performed By: #### [id number] ####[facility] LABCLIA [id number] [facility] JUAN [place]OW[place], [place] [address]FZL [Catalytic activity/Vol]79 U/BQwlgsj30-280 [facility] on above:Order Comment: Specimen Type: BLOOD SPECIMENOrdering Facility: [facility] Address:[address] [place], [place] [address]Performed By: #### 70969-8 ####[facility] LABCLIA [id number] [place]NA [place], [place] [address]PQZ [Catalytic activity/Vol]11 U/DSksxli62-65YhgrgwaowCommunity Memorial Hospital on above:Order Comment: Specimen Type: BLOOD SPECIMENOrdering Facility: [facility] Address:[address] [place], [place] [address]Performed By: #### 97117- 8 ####[facility] LABCLIA [id number] [facility] [place], [place] [address]Wrcnp gap [Moles/Vol]8 mmol/LNormal8-15[facility] on above:Order Comment: Specimen Type: BLOOD SPECIMENOrdering Facility: [facility] Address:[address] [place], [place] [address]Performed By: #### 77416-0 ####[facility] LABCLIA [id number] [place], [place] [address]NCO [Catalytic activity/Vol]15 U/URouvhd19-83VglquykjaCommunity Memorial Hospital on above:Order Comment: Specimen Type: BLOOD SPECIMENOrdering Facility: [facility] Address:[address] [place], [place] [address]Performed By: #### 12566-0 ####[facility] LABCLIA [id number] [facility] [place] [address] Bilirubin [Mass/Vol]0.3 mg/dLNormal0.2-1.3CKindred Healthcare on above:Order Comment: Specimen Type: BLOOD SPECIMENOrdering Facility: [facility] Address:[address] [place], [place] [address]Performed By: #### 80862-8 ####[facility] LABCLIA [id number] [place], [place] [address]Rbcrmev [Mass/Vol]9.4 mg/dLNormal8.5-10.2CKindred Healthcare on above:Order Comment: Specimen Type: BLOOD SPECIMENOrdering Facility: [facility] Address:[address] [place], [place] [address]Performed By: #### 27834-8 ####[facility] LABCLIA [id number] [place], [place] [address]Ohlzzebh [Moles/Vol]104 mmol/HKyfgpx80-029CzogyzlkoCommunity Memorial Hospital on above: Order Comment: Specimen Type: BLOOD SPECIMENOrdering Facility: [facility] Address:[address] [place], [place] [address]Performed By: #### 01002- 8 ####[facility] LABCLIA [id number] [place], [place] [address]OY9 [Moles/Vol]28 mmol/GCiizvg45-59ZsygfdpmlCommunity Memorial Hospital on above:Order Comment: Specimen Type: BLOOD SPECIMENOrdering Facility: [facility] Address:[address] [place], [place] [address]Performed By: #### 25899-6 ####[facility] LABCLIA [id number] [place], [place] [address]Gpcojrgbvj [Mass/Vol]1.78 mg/dL High0.73-1.22[facility] on above:Order Comment: Specimen Type: BLOOD SPECIMENOrdering Facility: [facility] Address:[address] [place], [place] [address]Performed By: #### 90003-3 ####[facility] LABCLIA [id number] [place] [address] eGFRcr SerPlBld CKD-EPI 737298 mL/min/1.73m???Low>=60[facility] Comment on above:Order Comment: Specimen Type: BLOOD SPECIMENOrdering Facility: [facility] Address:[address] [place], [place] [address]Result Comment: Estimated Glomerular Filtration Rate (eGFR) is calculated using the 2020 CKD-EPI creatinine equation. This equation utilizes serum creatinine, sex, and age as parameters. The creatinine assay has traceable calibration to isotope dilution-mass spectrometry. Refer to KDIGO guidelines for clinical interpretation. In patients with unstable renal function, e.g. those with acute kidney injury, the eGFR may not accurately reflect actual GFR.Performed By: #### 90268-6 ####[facility]CLIA [id number] [place], [place] [address]Vcticnn [Mass/Vol]119 mg/iJEmfc82-17ItvpspbbgCommunity Memorial Hospital on above:Order Comment: Specimen Type: BLOOD SPECIMENOrdering Facility: [facility] Address:[address] [place], [place] [address]Result Comment: The [place] Diabetes Association (ADA) provides guidance for cutoff values for fasting glucose and random glucose. The ADA defines fasting as no caloric intake for at least 8 hours. Fasting plasma glucose results between 100 to 125 mg/dL indicate increased risk for diabetes (prediab etes). Fasting plasma glucose results greater than or [...] Standards of Medical Care in Diabetes 2016, [place] Diabetes Association. Diabetes Care. 2016.39(Suppl 1).Performed By: #### 04119-0 ####[facility] LABCL[facility] [id number] [place], [place] [address]Xudfslxod [Moles/Vol]5.3 mmol/LHigh3.7-5.1CKindred Healthcare on above:Order Comment: Specimen Type: BLOOD SPECIMENOrdering Facility: [facility] Address:[address] [address]Performed By: #### 91508-9 ####[facility] LABCLIA [id number] [place], [place] [address]Zevvpnb [Mass/Vol]7.0 g/dLNormal6.3-8.0[facility] on above:Order Comment: Specimen Type: BLOOD SPECIMENOrdering Facility: [facility] Address:[address] [place], [place] [address]Performed By: #### 30295- 8 ####[facility]CL[facility] [id number] [place], [place] [address]Tpcqxf [Moles/Vol]140 mmol/SBngqsg862-950UefmjvfqwCommunity Memorial Hospital on above:Order Comment: Specimen Type: BLOOD SPECIMENOrdering Facility: [facility] Address:[address] [place], [place] [address]Performed By: #### 65227-2 ####[facility]CL[facility] [id number] [place], [place] [address]Wubh nitrogen [Mass/Vol]34 mg/dLHigh9-24[facility] on above:Order Comment: Specimen Type: BLOOD SPECIMENOrdering Facility: [facility] Address:[address] [place], [place] [address]Performed By: #### 94749-0 ####[facility] LABIA [id number] [place] [address] CNPSadie [id number] (HEMASA) JOLLY SIERRA ([id number]) 1945 M Date Time Provider Department 12/01/24 [...] BLOOD COUNT AND DIFFERENTIAL [SQCBCDIF] Order #: [id number] FUTURE COMPREHENSIVE METABOLIC PANEL [SQCMP] Order #: [id number] FUTURE Prescriptions as of 12/01/2024 - tamsulosin [...] Encounter Status:Closed by JOSE MARTIN HILLMAN on 12/01/24[facility] HealthcareGregoria [id number] (FVUROL) JOLLY SIERRA ([id number]) 1945 M Date Time Provider Department 11/25/24 JASON WILL During your visit today, we recorded the following information about you: Dilcia Camarog 11/25/2024 1:29 PM Signed Left voice message stating Dr. Will wanted patient to schedule cystoscopy in February. Scheduled patient with Dr. Duran on 02/26/25 @ 11:00 am at the [facility] office. Asked patient if he was going to follow up with a urologist in [facility] and to return call to office Allergies As of Date: 11/25/2024 (No Known Allergies) Date Reviewed: 10/28/2024 Reviewed by: John Wylie CT - Fully Assessed Reason for Visit: Appointment Confirmation [0293] Prescriptions as of 11/25/2024 - tamsulosin HCl [...] [D64*01/28/2024 Encounter Status:Closed by DILCIA CAMARGO on 11/25/24[facility] Specimen: [id number] Received: 11/18/24 Status: KAY Poe Num: [id number] Spec Type: Cytology Subm Dr: Rubén Newman DO Tissues: A FNA SLIDES NOPATH (RT THYROID NODULE) B FNA SLIDES NOPATH (LT THYROID NODULE) Procedures: Cyto Int and Re/2, PAPST Age/ Patient Sex Location Account Attending Physician Jolly Sierra 79/M [place] [id number] Rubén Newman DO SPEC NUM: [id number] RECD: 11/18/24 STATUS: KAY POE NUM: [id number] TAVON: 11/17/[address]: Rubén Newman,DO ENTERED: 11/18/[address] [facility] [address]: SPEC TYPE: Cytology DEPT: CNG ENTERED BY: [id number] RECV BY: [id number] ORDERED: Cyto Int and Re/2, PAPSTN/22 ORDERED: Cyto Int and Re/2, PAPSTN/22 Pathological Diagnosis A. Right thyroid nodule, fine-needle aspirate (smears and ThinPrep): ? Nondiagnostic/unsatisfactory, [place] category I ? Blood only. B. Left thyroid nodule, fine-needle aspirate (smears and ThinPrep): ? Benign, [place] category II ? The specimen contains a [...] vial stored at -20 for microscopic examination. (/wy) B. (LEFT) Received fixed in Cytolyt is 30 ml pale pink clear fixed fluid for cytology said to have been obtained as Left Thyroid Nodule. ThinPrep preparations are prepared for Specimen: [id number] Received: 11/18/24 Status: KAY Poe Num: [id number] Spec Type: Cytology Subm Dr: Rubén Newman, Tissues: A FNA SLIDES NOPATH (RT THYROID NODULE) B FNA SLIDES NOPATH (LT THYROID NODULE) Procedures: Cyto Int and Re/2, PAPSTN/22 Patient: Jolly Sierra [id number] (Continued) Specimen: [id number] Received: 11/18/24 (Continued) Gross Description (Continued) Signed (signature on file) Narayan Munoz MD 11/19/24 1458 Specimen: [id number] Received: 11/18/24 Status: KAY Poe Num: [id number] Spec Type: Cytology Subm Dr: Rubén NewmanDO Tissues: A FNA SLIDES NOPATH (RT THYROID NODULE) B FNA SLIDES NOPATH (LT THYROID NODULE) Procedures: Cyto Int and Re/2, PAPSTN/22 Patient: Jolly Sierra [id number] (Continued) Specimen: [id number] Received: 11/18/24 (Continued) Gross Description (Continued) microscopic examination. Also received are 10 spray fixed smeared slides for pap and a Thyroseq vial stored at -20 for microscopic examination. (/wy) CPT Codes 65193 x 2, 65623 x 2 Specimen: [id number] Received: 11/18/24 Status: KAY Poe Num: [id number] Spec Type: Cytology Subm Dr: Rubén Newman DO Tissues: A FNA SLIDES NOPATH (RT THYROID NODULE) B FNA SLIDES NOPATH (LT THYROID NODULE) Procedures: Cyto Int and Re/2, PAPSTN/22 Patient: Jolly Sierra [id number] (Continued) Signed (signature on file) Narayan Munoz MD 11/19/24 1458 [facility] Physician [facility] UROGRAM WO/W IVCONon [id number] UROGRAM WO/W IVCON* * *Final Report* * * DATE OF EXAM: Oct 28 2024 10:51AM [facility] 0560 - CT UROGRAM WO/W IVCON [...] areas of non masslike hypoenhancement (for example 3/61, 601/78) which may represent pyelonephritis. Delayed images show mild nonspecific thickening of the calyces (for example 4/52, 59, 60). The opacified calices, renal pelvis and ureter are otherwise normal without dilation, filling defect, or stricture. Left: There are no renal calculi or masses. Punctate hypodensity at the midpole (3/53) is too small to characterize. The opacified [...] metastatic disease in the abdomen or pelvis. Elementary Librarian: LINDA Transcribe Date/Time: Nov 03 2024 9:59A Dictated by : TRACEY PATHAK MD This examination was interpreted and the report reviewed and electronically signed by: TRACEY PATHAK MD on Nov 03 2024 10:48AM EST [id number] [facility] W Auto Differential panel (Bld)on [id number] (Bld) [#/Vol]NINFClevelNewark HospitalBasophils/100 WBC (Bld)0.3 %[facility] HospitalDifferential cell count method Nom (Bld)AutoClevelNewark Hospital Eosinophils (Bld) [#/Vol]0.06 10*3/uLNINFTrihealth Bethesda North HospitalEosinophils/100 WBC (Bld)1 %[facility] HospitalErythrocyte distribution width (RBC) [Ratio]13.1 %11.5 - 15.0 %[facility] HospitalHematocrit (Bld) [Volume fraction]37.8 %Low39.0 - 51.0 % [facility] HospitalHemoglobin (Bld) [Mass/Vol]12.3 g/dLLow13.0 - 17.0 g/dLTrihealth Bethesda North HospitalImmature granulocytes (Bld) [#/Vol]NINFClevelNewark HospitalImmature granulocytes/100 WBC (Bld)0.2 %[facility] HospitalInterpretation and review of laboratory resultsAbnormalClevelNewark HospitalLymphocytes (Bld) [#/Vol]1.61 10*3/uL [facility] HospitalLymphocytes/100 WBC (Bld)27.3 %[facility] SystemH (RBC) [Entitic mass]31.8 pg26.0 - 34.0 pgClevelNorth Shore HealthHC (RBC) [Mass/Vol]32.5 g/dL30.5 - 36.0 g/dLTrinity Health SystemV (RBC) [Entitic vol]97.7 fL80.0 - 100.0 fLClevelNewark HospitalMonocytes (Bld) [#/Vol]0.53 10*3/uLNINFTrihealth Bethesda North Hospital Monocytes/100 WBC (Bld)9 %[facility] HospitalNeutrophils (Bld) [#/Vol]3.67 10*3/uL [facility] HospitalNeutrophils/100 WBC (Bld)62.2 %[facility] HospitalNucleated RBC (Bld) [#/Vol]NINFCleveland ClinicNucleated RBC/100 WBC (Bld) [Ratio]0 %/100 WBC [facility] HospitalPlatelet mean volume (Bld) [Entitic vol]10.1 fL9.0 - 12.7 fL [facility] HospitalPlatelets (Bld) [#/Vol]155 10*3/uLKermit ClinicRBC (Bld) [#/Vol]3.87 10*6/uLLow4.20 - 6.00 m/St. Anthony's HospitalWBC (Bld) [#/Vol]5.9 10*3/uLBarnesville Hospital ClinicBasophils (Bld) [#/Vol]10*3/uLNormal<0.11 [facility] on above:Order Comment: Specimen Type: BLOOD SPECIMENOrdering Facility: [facility] Address:[address] [place], [place] [address]Performed By: #### 79094-3 ####[facility] LABIA [id number] [place], [place] [address]Svyhyzrqi/100 WBC (Bld)0.3 %NormalCommunity Memorial Hospital on above:Order Comment: Specimen Type: BLOOD SPECIMENOrdering Facility: [facility] Address:[address] [place], [place] [address]Performed By: #### 36876-7 ####[facility] LABCLIA [id number] [place], [place] [address]Yxyuqmiqutox cell count method Nom (Bld)AutoNormal [facility] on above:Order Comment: Specimen Type: BLOOD SPECIMENOrdering Facility: [facility] Address:[address] [place], [place] [address]Performed By: #### 97792-6 ####[facility] LABIA [id number] [place], [place] [address]Xpftawuspaz (Bld) [#/Vol]0.06 10*3/uLNormal<0.46[facility] on above: Order Comment: Specimen Type: BLOOD SPECIMENOrdering Facility: [facility] Address:[address] [place], [place] [address]Performed By: #### 35075- 8 ####[facility] LABIA [id number] [place], [place] [address]Wfskgenrhux/100 WBC (Bld)1.0 %NormalCommunity Memorial Hospital on above:Order Comment: Specimen Type: BLOOD SPECIMENOrdering Facility: [facility] Address:[address] [place], [place] [address]Performed By: #### 88355-2 ####[facility] LABIA [id number] [place], [place] [address]Zzvdxnboiej distribution width (RBC) [Ratio]13.1 %Jppvap48.5-15.0[facility] on above: Order Comment: Specimen Type: BLOOD SPECIMENOrdering Facility: [facility] Address:[address] [place], [place] [address]Performed By: #### 52253- 8 ####[facility] LABIA [id number] [place], [place] [address]Pvlexerygq (Bld) [Volume fraction]37.8 %Low39.0-51.0 [facility] on above:Order Comment: Specimen Type: BLOOD SPECIMENOrdering Facility: [facility] Address:[address] [place], [place] [address]Performed By: #### 56992-9 ####[facility] LABIA [id number] [place], [place] [address]Sheykbdfmy (Bld) [Mass/Vol]12.3 g/dLLow13.0-17.0[facility] on above:Order Comment: Specimen Type: BLOOD SPECIMENOrdering Facility: [facility] Address:[address] [place], [place] [address]Performed By: #### 73052- 8 ####[facility] LABIA [id number] [place], [place] [address]Aqpgyjry granulocytes (Bld) [#/Vol]10*3/uLNormal<0.10 [facility] on above:Order Comment: Specimen Type: BLOOD SPECIMENOrdering Facility: [facility] Address:[address] [place], [place] [address]Performed By: #### 25028-4 ####[facility] LABCLIA [id number] [place], [place] [address]Jrzpdikn granulocytes/100 WBC (Bld)0.2 %NormalCommunity Memorial Hospital on above: Order Comment: Specimen Type: BLOOD SPECIMENOrdering Facility: [facility] Address:[address] [place], [place] [address]Performed By: #### 64069- 8 ####[facility] LABCLIA [id number] [place], [place] [address]Rtqiofodhtw (Bld) [#/Vol]1.61 10*3/uLNormal1.00-4.00 [facility] on above:Order Comment: Specimen Type: BLOOD SPECIMENOrdering Facility: [facility] Address:[address] [place], [place] [address]Performed By: #### 86546-6 ####[facility] LABIA [id number] [place], [place] [address]Zmpvyrnerdb/100 WBC (Bld)27.3 %NormalCommunity Memorial Hospital on above:Order Comment: Specimen Type: BLOOD SPECIMENOrdering Facility: [facility] Address:[address] [place], [place] [address]Performed By: #### 34744-1 ####[facility] LABIA [id number] [place], [place] [address]DKN (RBC) [Entitic mass]31.8 yaWvahty81.0-34.0[facility] on above:Order Comment: Specimen Type: BLOOD SPECIMENOrdering Facility: [facility] Address:[address] [place], [place] [address]Performed By: #### 71741-1 ####[facility] LABCLIA [id number] [place], [place] [address]UAPL (RBC) [Mass/Vol]32.5 g/qKOhqrbi27.5-36.0[facility] on above: Order Comment: Specimen Type: BLOOD SPECIMENOrdering Facility: [facility] Address:[address] [place], [place] [address]Performed By: #### 29987- 8 ####[facility] LABCLIA [id number] [place], [place] [address]FIS (RBC) [Entitic vol]97.7 iMBhexcb30.0-100.0[facility] on above:Order Comment: Specimen Type: BLOOD SPECIMENOrdering Facility: [facility] Address:[address] [place], [place] [address]Performed By: #### 87069-4 ####[facility] LABIA [id number] [place], [place] [address]Hlagqemdo (Bld) [#/Vol]0.53 10*3/uLNormal<0.87[facility] on above:Order Comment: Specimen Type: BLOOD SPECIMENOrdering Facility: [facility] Address:[address] [place], [place] [address]Performed By: #### 74578- 8 ####[facility] LABCLIA [id number] [place], [place] [address]Bzxotfzkj/100 WBC (Bld)9.0 %NormalCommunity Memorial Hospital on above:Order Comment: Specimen Type: BLOOD SPECIMENOrdering Facility: [facility] Address:[address] [place], [place] [address]Performed By: #### 64347-9 ####[facility] LABIA [id number] [place], [place] [address]Irnkzqmeszk (Bld) [#/Vol]3.67 10*3/uLNormal1.45-7.50[facility] on above:Order Comment: Specimen Type: BLOOD SPECIMENOrdering Facility: [facility] Address:[address] [place], [place] [address]Performed By: #### 72466-1 ####[facility] LABCLIA [id number] [place], [place] [address]Xswhifauscj/100 WBC (Bld)62.2 %NormalCommunity Memorial Hospital on above:Order Comment: Specimen Type: BLOOD SPECIMENOrdering Facility: [facility] Address:[address] [place], [place] [address]Performed By: #### 95531-5 ####[facility] LABCLIA [id number] [place], [place] [address]Cqqmkixwx RBC (Bld) [#/Vol] 10*3/uLNormal<0.01[facility] on above:Order Comment: Specimen Type: BLOOD SPECIMENOrdering Facility: [facility] Address:[address] [place], [place] [address]Performed By: #### 43780-3 ####[facility] LABCLIA [id number] [place], [place] [address]Klmrdtfqv RBC/100 WBC (Bld) [Ratio]0.0 /100 WBCNormal [facility] on above:Order Comment: Specimen Type: BLOOD SPECIMENOrdering Facility: [facility] Address:[address] [place], [place] [address]Performed By: #### 00903-8 ####[facility] LABCLIA [id number] [place], [place] [address]Loyqacwn mean volume (Bld) [Entitic vol]10.1 fLNormal9.0-12.7CKindred Healthcare on above:Order Comment: Specimen Type: BLOOD SPECIMENOrdering Facility: [facility] Address:[address] [place] [address] Performed By: #### 89953-4 ####[facility] LABCLIA [id number] [place], [place] [address]Dkfeohayy (Bld) [#/Vol]155 10*3/gBSahrsg210-506WhtmyekjvCommunity Memorial Hospital on above:Order Comment: Specimen Type: BLOOD SPECIMENOrdering Facility: [facility] Address:[address] [place], [place] [address]Performed By: #### 94349-7 ####[facility] LABCLIA [id number] [place], [place] [address]ZWH (Bld) [#/Vol]3.87 10*6/uLLow4.20-6.00[facility] on above:Order Comment: Specimen Type: BLOOD SPECIMENOrdering Facility: [facility] Address:[address] [place], [place] [address]Performed By: #### 99246-5 ####[facility] LABIA [id number] [place], [place] [address]VKH (Bld) [#/Vol]5.90 10*3/uL Normal3.70-11.00[facility] on above:Order Comment: Specimen Type: BLOOD SPECIMENOrdering Facility: [facility] Address:[address] [place], [place] [address]Performed By: #### 44813-3 ####[facility] LABIA [id number] [place], [place] [address]IIJBUOvs 39-85-7698IUAKQIEncmk (SP) Office (HEMASA) JOLLY SIERRA ([id number]) 1945 M Date Time Provider Department 09/11/24 [...] PATHOLOGY: 09/06/2023 Robotic bladder (more content not included)...NormalAshtabula County Medical CenterComprehensive metabolic 2000 panelOrdered By: Mukesh Donohue on 09-11-2024 Albumin [Mass/Vol]4.1 g/dL3.9 - 4.9 g/dLKermit ClinicALP [Catalytic activity/Vol]85 U/L38 - 113 U/LCleveland ClinicALT [Catalytic activity/Vol]18 U/L10 - 54 U/LCleveland ClinicAnion gap [Moles/Vol]9 mmol/L8 - 15 mmol/L [facility] HospitalAST [Catalytic activity/Vol]20 U/L14 - 40 U/LCleveland [facility] Bilirubin [Mass/Vol]0.2 mg/dL0.2 - 1.3 mg/dLKermit ClinicCalcium [Mass/Vol] 9.7 mg/dL8.5 - 10.2 mg/dLTrihealth Bethesda North HospitalChloride [Moles/Vol]103 mmol/L98 - 107 mmol/LCleveland ClinicCO2 [Moles/Vol]26 mmol/L22 - 30 mmol/LCleveland Clinic Creatinine [Mass/Vol]1.29 mg/dLHigh0.73 - 1.22 mg/dLTrihealth Bethesda North HospitalGFR/1.73 sq M.predicted among non-blacks MDRD (S/P/Bld) [Vol rate/Area]56 mL/min/{1.73_m2} Low- PINFCleveland ClinicComment on above:Estimated Glomerular Filtration Rate (eGFR) is calculated using the 2020 CKD-EPI creatinine equation. This equation utilizes serum creatinine, sex, and age as parameters. The creatinine assay has traceable calibration to isotope dilution-mass spectrometry. Refer to KDIGO guidelines for clinical interpretation. In patients with unstable renal function, e.g. those with acute kidney injury, the eGFRmay not accurately reflect actual GFR.Glucose [Mass/Vol]125 mg/lLTwue79 - 99 mg/dLTrihealth Bethesda North Hospital Comment on above:The [place] Diabetes Association (ADA) provides guidance for cutoff [...] Standards of Medical Care in Diabetes 2016, [place] Diabetes Association. Diabetes Care. 2016.39(Suppl 1). Interpretation and review of laboratory resultsAbnormalCleveland ClinicPotassium [Moles/Vol]4.6 mmol/L3.7 - 5.1 mmol/LCcity hospital ClinicProtein [Mass/Vol]7 g/dL 6.3 - 8.0 g/dLAvita Health System Ontario Hospitalodium [Moles/Vol]138 mmol/L136 - 144 mmol/L [facility] HospitalUrea nitrogen [Mass/Vol]29 mg/dLHigh9 - 24 mg/dLSumma HealthComprehensive metabolic 2000 panelon 61-44-9928Smtemzb [Mass/Vol]4.1 g/dLNormal3.9-4.9CMetroHealth Parma Medical CenterComment on above:Order Comment: Specimen Type: BLOOD SPECIMENOrdering Facility: [facility] Address:[address] [place], [place] [address]Performed By: #### 70863- 8 ####[facility] LABCLIA [id number] [place], [place] [address]LSV [Catalytic activity/Vol]85 U/FIpurxt83-101NxfnnqlilCommunity Memorial Hospital on above:Order Comment: Specimen Type: BLOOD SPECIMENOrdering Facility: [facility] Address:[address] [place], [place] [address]Performed By: #### 90803-4 ####[facility] LABCLIA [id number] [place], [place] [address]FUF [Catalytic activity/Vol]18 U/OXiarnj33-32ThyuhxubzCommunity Memorial Hospital on above:Order Comment: Specimen Type: BLOOD SPECIMENOrdering Facility: [facility] Address:[address] [place], [place] [address]Performed By: #### 05724- 8 ####[facility] LABCLIA [id number] [place], [place] [address]Cawxy gap [Moles/Vol]9 mmol/LNormal8-15[facility] on above:Order Comment: Specimen Type: BLOOD SPECIMENOrdering Facility: [facility] Address:[address] [place], [place] [address]Performed By: #### 38564-2 ####[facility] LABCL[facility] [id number] [place], [place] [address]IBF [Catalytic activity/Vol]20 U/XMiyrzq83-23SjrqlimrlCommunity [facility] on above:Order Comment: Specimen Type: BLOOD SPECIMENOrdering Facility: [facility] Address:[address] [place], [place] [address]Performed By: #### 38283-4 ####[facility]CLIA [id number] [place] [address] Bilirubin [Mass/Vol]0.2 mg/dLNormal0.2-1.3CKind[facility] on above:Order Comment: Specimen Type: BLOOD SPECIMENOrdering Facility: [facility] Address:[address] [place], [place] [address]Performed By: #### [id number] ####[facility]CL[facility] [id number] [place], [place] [address]Fdlygfb [Mass/Vol]9.7 mg/dLNormal8.5-10.2CKindred Healthcare on above:Order Comment: Specimen Type: BLOOD SPECIMENOrdering Facility: [facility] Address:[address] [place], [place] [address]Performed By: #### 15145-4 ####[facility] [id number] [place], [place] [address]Stwcwoqw [Moles/Vol]103 mmol/CSsvzzl38-704PveldarsyCommunity Memorial Hospital on above: Order Comment: Specimen Type: BLOOD SPECIMENOrdering Facility: [facility] Address:[address] [place], [place] [address]Performed By: #### 59856- 8 ####[facility] LABCLIA [id number] [facility] OTONIEL [place], [place] [address]CX1 [Moles/Vol]26 mmol/OFzgftl60-96IpvifopcwCommunity Memorial Hospital on above:Order Comment: Specimen Type: BLOOD SPECIMENOrdering Facility: [facility] Address:[address] [place], [place] [address]Performed By: #### 28354-7 ####[facility] LABCLIA [id number] [place], [place] [address]Ptzmfdirfs [Mass/Vol]1.29 mg/dL High0.73-1.22[facility] on above:Order Comment: Specimen Type: BLOOD SPECIMENOrdering Facility: [facility] Address:[address] [place], [place] [address]Performed By: #### 47807-8 ####[facility] LABCLIA [id number] [place] [address] Creatinine and Glomerular filtration rate.predicted panel (S/P/Bld)56 mL/min/1.73m???Low>=60[facility] on above:Order Comment: Specimen Type: BLOOD SPECIMENOrdering Facility: [facility] Address:[address] [place], [place] [address]Result Comment: Estimated Glomerular Filtration Rate (eGFR) is calculated using the 2020 CKD-EPI creatinine equation. This equation utilizes serum creatinine, sex, and age as parameters. The creatinine assay has traceable calibration to isotope dilution-mass spectrometry. Refer to KDIGO guidelines for clinical interpretation. In patients with unstable renal function, e.g. those with acute kidney injury, the eGFR may not accurately reflect actual GFR.Performed By: #### 29836-5 ####[facility] LABIA [id number] [place] [address] Glucose [Mass/Vol]125 mg/nYGxau61-95KooulazycCommunity Memorial Hospital on above: Order Comment: Specimen Type: BLOOD SPECIMENOrdering Facility: [facility] Address:[address] [place], [place] [address]Result Comment: The [place] Diabetes Association (ADA) provides guidance for cutoff values for fast ing glucose and random glucose. The ADA defines [...] Standards of Medical Care in Diabetes 2016, [place] [employer] Association. Diabetes Care. 2016.39(Suppl 1).Performed By: #### 48812-3 ####[facility] LABIA [id number] [place], [place] [address]Bagcwwtpf [Moles/Vol]4.6 mmol/LNormal3.7-5.1CKindred Healthcare on above:Order Comment: Specimen Type: BLOOD SPECIMENOrdering Facility: [facility] Address:[address] [place], [place] [address]Performed By: #### 01982-7 ####[facility] LABIA [id number] [place], [place] [address]Vgcuoiz [Mass/Vol]7.0 g/dLNormal6.3-8.0[facility] on above:Order Comment: Specimen Type: BLOOD SPECIMENOrdering Facility: [facility] Address:[address] [place], [place] [address]Performed By: #### 17417- 8 ####[facility] LABCLIA [id number] [place], [place] [address]Petzpi [Moles/Vol]138 mmol/JRyghix983-984KkwskvbwhCommunity Memorial Hospital on above:Order Comment: Specimen Type: BLOOD SPECIMENOrdering Facility: [facility] Address:[address] [place], [place] [address]Performed By: #### 86297-0 ####[facility] LABIA [id number] [place], [place] [address]Onjh nitrogen [Mass/Vol]29 mg/dLHigh9-24[facility] on above:Order Comment: Specimen Type: BLOOD SPECIMENOrdering Facility: [facility] Address:[address] [place], [place] [address]Performed By: #### 89716-7 ####[facility] LABIA [id number] [place] [address] [facility]ALSadie 79-98-4245FTYWKyfelubmh (URR) JOLLY SIERRA ([id number]) 1945 M Date Time Provider Department 09/02/24 [facility] [facility] During your visit today, we recorded the following information about you: Amarilis Oh RN 09/02/2024 9:43 AM Signed Patient is aware to start keflex for UTI per order of Dr Will. Allergies As of Date: 09/02/2024 (No Known Allergies) Date Reviewed: 06/12/2024 Reviewed by: Anni Perez MA - Fully Assessed Reason for Visit: Antibiotic [Other] Prescriptions as of 09/02/2024 - sulfamethoxazole-trimethoprim (BACTRIM DS) 800-160 mg per tablet [...] [D64*01/28/2024 Encounter Status:Closed by [place]IL[place] on 09/02/24[facility] 16-24-6204Sywucvqb identified Cx Nom (U)ORGANISM ID: 1 >=100,000 CFU/ml Escherichia coli ORGANISM ID: 1 (ESCHERICHIA COLI) ANTIBIOTIC INTERPRETATION SAMUEL STATUS REFERENCE RANGE Ampicillin R >=32 F Susceptible <=8 , Intermediate >8 , Resistant >16 Cefazolin S <=4 F Susceptible 0-16 , Intermediate <0 or >16 , Resistant >16 For uncomplicated urinary tract infections, cefazolin results can be used to predict susceptibilityor resistance to cephalexin. Ceftriaxone S <=1 F [...] Susceptible <=32 , Intermediate >32 , Resistant >64[facility] Comment on above:Performed By: #### 630-4 ####[facility] LABIA [id number] [place] [id number] [place] STATES OF [facility] GALION HOSPITALCNOVon 35-27-1561OAXNIxdyuk Visit (URFMOB) JOLLY SIERRA ([id number]) 1945 Date Time Provider Department 08/28/24 2:00 PM [...] Education Session: None Instruction Provided To: Patient Surgical Orderly Present: not applicable Discipline: Nursing Learning Topic: [...] of a medical oncologist, Dr. Dasilva, in [place], and has completed treatment for a tumor [...] further evaluation. CT Abd/Ch (more content not included)...NormalMontrose HospitalCYTOLOGY NON-MULTIPLE RESAW OPERATOR on 19-48-2456PY DISCLAIMERNormalMontrose HospitalComment on above:Order Comment: Specimen Type: URINE SPECIMENOrdering Facility: [facility] Address:[address] [place], [place] [address]Result Comment: Laboratory Developed Test (LDT) Disclaimer: Performance characteristics of immunohistochemical, immunofluorescent, and chromogenic in-situ hybridization tests have been determined by the performing laboratory within [facility]'s [facility] Pathology and Laboratory Medicine Department ([facility], [facility], [facility], [facility], [facility], [facility], or [facility]) in a manner consistent with CLIA requirements. One or more of these tests may not have been cleared or approved by the FDA. [facility] is regulated under CLIA as qualified to perform high- complexity testing. These tests are used for clinical purposes. These should not be regarded asinvestigational or for research. Positive and negative controls stain appropriately.Performed By: #### CYTONON ####[facility] LABORATORYCLIA [id number] [address] STATES OF [facility] GALION HOSPITALCASE REPORTNoNew England Rehabilitation Hospital at Danvers HospitalComment on above:Order Comment: Specimen Type: URINE SPECIMENOrdering Facility: [facility] Address:[address] [place], [place] [address]Result Comment: Medical Cytology Report Case: [id number] Authorizing Provider: Jason Will MD Collected: 08/28/2024 01:34 PM Ordering Location: Urology Received: 08/29/2024 06:57 AM Pathologist: Pablo Burton MD Specimen: Urine, MidstreamPerformed By: #### CYTONON ####[facility] LABORATORYCLIA [id number] [place] [id number] [place] STATES OF [place] CLINICAL HISTORYHistory of bladder cancerNoNew England Rehabilitation Hospital at Danvers HospitalComment on above:Order Comment: Specimen Type: URINE SPECIMENOrdering Facility: [facility] Address:[address] [place], [place] [address]Performed By: #### CYTONON ####[facility] LABORATORYCLIA [id number] [address] OF [facility] GALION HOSPITALFINAL DIAGNOSISNormBoston University Medical Center Hospital HospitalComment on above:Order Comment: Specimen Type: URINE SPECIMENOrdering Facility: [facility] Address:[address] [place], [place] [address]Result Comment: A - Urine, Voided: Negative for high-grade urothelial carcinoma. Abundant acute inflammation and bacteria. at 1223 EDTPerformed By: #### CYTONON ####[facility] LABORATORYCLIA [id number] [place] [id number] [facility] Comment on above:Order Comment: Specimen Type: URINE SPECIMENOrdering Facility: [facility] Address:[address] [place], [place] [address]Result Comment: Technical component, diesel mechanic screening performed at: [facility], [address] [place] [address] CLIA: [id number] Diagnostic interpretation performed at: [facility], [address] [place] [address] CLIA# [id number] Machine Paint Mixer: Marco Antonio Russell MDPerformed By: #### CYTOSADIE ####[facility] LABORATORYCLIA [id number] [address] Roberts StreetComment on above:Order Comment: Specimen Type: URINE SPECIMENOrdering Facility: [facility] Address:[address] [place], [place] [address]Result Comment: A. Urine, Midstream 10 cc hazy yellow fluid. ThinPrep prepared.Performed By: #### CYTONON ####[facility] LABORATORYCLIA [id number] [address]ETCNPNon [id number] (URFMOB) JOLLY SIERRA ([id number]) 1945 M Date Time Provider Department 08/13/24 JASON WILL During your visit today, we recorded the following information about you: Noe Ibarra 08/13/2024 11:04 AM Signed Called patient and left voicemail informing them of rescheduled appointment with Dr. Will. Allergies As of Date: 08/13/2024 (No Known Allergies) Date Reviewed: 06/12/2024 Reviewed by: Chris August, - Fully Assessed Reason for Visit: rescheduled [...] [D64*01/28/2024 Encounter Status:Closed by NOE IBARRA on 08/13/24[facility] 08-04-2024L Specimen: [id number] Received: 08/05/24 Status: KAY Poe Num: [id number] Spec Type: Cytology Subm Dr: Rubén Newman DO Tissues: A FNA SLIDES NOPATH (RT THYROID NODULE) B FNA SLIDES NOPATH (LT THYROID NODULE) Procedures: Cyto Int and Re/2, PAPSTN/22 Age/ Patient Sex Location Account Attending Physician Jolly Sierra 79/M [place] [id number] Rubén Newman DO SPEC NUM: [id number] RECD: 08/05/24 STATUS: KAY DEEPIKA NUM: [id number] [place]: 08/04/[address] [facility] [address]: Rubén Newman DO ENTERED: 08/05/[address] [facility] [address]: SPEC TYPE: Cytology DEPT: [facility]ERT ENTERED BY: [id number] RECV BY: [id number] ORDERED: Cyto Int and Re/2, PAPSTN/22 ORDERED: Cyto Int and Re/2, PAPSTN/22 Pathological Diagnosis A: Right thyroid nodule, FNA cytology: -Only rare follicular cells including rare follicular groups and some blood cells with minor admixed colloid and rare suspected dispersed follicular cells, and too limited and not applicable for overall assessment, therefore consistent with the Category 1 [place] system: Nondiagnostic B, left thyroid nodule, FNA cytology: -Occasional follicular cells are present in some smears but mostly as tiny crushed cellular clusters, and only <10 more preserved groups for assessment, and although mostly containing small bland looking follicular cells but are still limited for overall assessment, and is consistent with the category 1 [place] system: Nondiagnostic Clinical Information Bilateral Thyroid Nodule Specimen: [id number] Received: 08/05/24 Status: KAY Poe Num: [id number] Spec Type: Cytology Subm Dr: Rubén Newman,DO Tissues: A FNA SLIDES NOPATH (RT THYROID NODULE) B FNA SLIDES NOPATH (LT THYROID NODULE) Procedures: Cyto Int and Re/2, PAPSTN/22 Patient: Jolly Sierra [id number] (Continued) Specimen: [id number] Received: 08/05/24 (Continued) Signed (signature on file) Jitendra Gambino MD 08/07/24 1704 Specimen: [id number] Received: 08/05/24 Status: KAY Poe Num: [id number] Spec Type: Cytology Subm Dr: Rubén Newman,DO Tissues: A FNA SLIDES NOPATH (RT THYROID NODULE) B FNA SLIDES NOPATH (LT THYROID NODULE) Procedures: Cyto Int and Re/2, PAPSTN/22 Patient: Jolly Sierra [id number] (Continued) Specimen: [id number] Received: 08/05/24 (Continued) Gross Description A.(RIGHT) Received fixed in Cytolyt is 30 ml very pale pink clear fixed fluid for cytology said to have been obtained as Right Thyroid Nodule. ThinPrep preparations are prepared for microscopic examination. Also received are 10 spray fixed smeared slides for pap and a Thyroseq stored at -20 for microscopic examination. (/wy) B.(LEFT) Received fixed in Cytolyt is 30 ml very pale pink clear fixed fluid for cytology said to have been obtained as Left Thyroid Nodule. ThinPrep preparations are prepared for microscopic examination. Also received are 10 spray fixed smeared slides for pap and a Thyroseq stored at -20 for microscopic examination. (/wy) Microscopic Description Microscopic examination is performed CPT Codes 97034l0 Specimen: [id number] Received: 08/05/24 Status: KAY Poe Num: [id number] Spec Type: Cytology Subm Dr: Rubén Newman DO Tissues: A FNA SLIDES NOPATH (RT THYROID NODULE) B FNA SLIDES NOPATH (LT THYROID NODULE) Procedures: Cyto Int and Re/2, PAPSTN/22 Patient: Jolly Sierra [id number] (Continued) Signed (signature on file) Jitendra Gambino MD 08/07/24 1704NoNov[facility] Health [facility] Physician GroupParathyrin.intact [Mass/Vol]on 07-14-2024 PARATHYROID HORMONE LKGGTH36.7 pg/mL pg/mLNMilwaukee County Behavioral Health Division– [place] Parathyrin.intact [Mass/volume] in Serum or PlasmaOrdered By: Rubén Newman on 66-37-5993Gaffyxuouh.intact [Mass/Vol]Parathyrin.intact [Mass/volume] in Serum or Zojdje58-99QwiholtjjUniversity Hospitals Parma Medical CenterParathyroid Hormone Intacton 16-52-2664Ofnomskykxi Hormone Pwfctb52.7 pg/fEBpkwzn58-83Kgb [place] Physician [facility] HospitalComment on above:Result Comment: PERFORMED BY: [address] [address] PATHOLOGIST TANK TENDER RENETTA LAROSE M.D.Performed By: #### T3T, TSH3, T4T, PTH #### [facility] [address] [place] [address] USAThyroid Stimulating Hormoneon 87-49-4677TNL Qn1.03 m[IU]/L Normal0.45-5.33[facility] Physician [facility] HospitalComment on above:Result Comment: PERFORMED BY: [address] [address] PATHOLOGIST TANK TENDER RENETTA LAROSE M.D.Performed By: #### T3T, TSH3, T4T, PTH #### [facility] [address] [place] [address] USAThyrotropin [Units/volume] in Serum or PlasmaOrdered By: Rubén Newman on 38-51-4892CYI QnThyrotropin [Units/volume] in Serum or Plasma 0.45-5.33University Hospitals Parma Medical CenterThyroxine (T4) Totalon 53-73-1130U1 [Mass/Vol]10.16 ug/dLNormal5.39-11.82The [facility] Physician GroupComment on above:Performed By: #### T3T, TSH3, T4T, PTH #### [facility] [address] [place] [address] USAThyroxine (T4) [Mass/volume] in Serum or PlasmaOrdered By: Rubén Newman on 80-74-4061Z1 [Mass/Vol]Thyroxine (T4) [Mass/volume] in Serum or Plasma5.39-11.82[facility] Hospitals Parma Medical CenterTriiodothyronine (T3) Total on 67-37-3363Omivgnzajouuvizf (T3) Total1.05 ng/mLNormal0.87-1.78The [facility] Physician GroupComment on above:Performed By: #### T3T, TSH3, T4T, PTH #### [facility] [address] [place] [address] USATriiodothyronine (T3) [Mass/volume] in Serum or Plasma Ordered By: Rubén Newman on 54-11-8168J0 [Mass/Vol]Triiodothyronine (T3) [Mass/volume] in Serum or Plasma0.87-1.78[facility] Hospitals Parma Medical CenterCNPNon 17-61-8359NFBCAdncksvbn (HEMASA) JOLLY SIERRA ([id number]) 1945 M Date Time Provider Department 06/19/24 DONALD PEREZ During your visit today, we recorded the following information about you: Donald Perez, RN 06/19/2024 4:38 PM Signed Thyroid US done 06/18/24. Results recommend US-guided biopsy. Dr Dasilva would like pt to see ENT either through [facility] or locally (Dr Newman). Pt notified and agrees to local referral. BRM/RAJWINDER: Referral for ENT pended. HANK Galloway Rebecca, RN 06/20/2024 8:38 AM Signed Clerical: Please refer pt to Dr Newman for thyroid biopsy. Thanks! HANK Galloway Jodi 06/20/2024 9:06 AM Signed Saira Muhammad - could you please send records Temitope Sousa 06/20/2024 9:18 AM Signed I faxed over the referral to [facility] ENT [phone] fax number Cb ManishaMahi 06/20/2024 9:56 AM Signed Records faxed to [facility] ENT. Temitope Sousa 06/23/2024 10:02 AM [...] Fully Assessed Reason for Visit: Care Coordination [3491] Cmt: Thyroid US Primary Visit Diagnosis:Thyroid nodule [E04.1] Order(s):CONSULT TO ENT [9008] Order #: [id number]: 1 FUTURE Prescriptions as of 07/10/2024 - [...] [D64*01/28/2024 Encounter Status:Closed by DONALD PEREZ on 07/10/24UK HealthcareCNOVSPon 54-44-5482MJADVVYrgit (SP) Office (HEMASA) JOLLY SIERRA ([id number]) 1945 M Date Time Provider Department 06/12/24 [...] 35.0 WBC (k/uL) Hernan (more content not included)...NormalCincinnati Shriners Hospital W Auto Differential panel (Bld)on 91-27-3894Kbbpcrhdw (Bld) [#/Vol]NINFClevelst. luke's hospital Clinic Basophils/100 WBC (Bld)0.3 %[facility] HospitalDifferential cell count method Nom (Bld)AutoCleveland ClinicEosinophils (Bld) [#/Vol]0.04 10*3/uLNINFTrihealth Bethesda North HospitalEosinophils/100 WBC (Bld)0.7 %[facility] HospitalErythrocyte distribution width (RBC) [Ratio]13.6 %11.5 - 15.0 %[facility] HospitalHematocrit (Bld) [Volume fraction]35.0 %Low39.0 - 51.0 %[facility] HospitalHemoglobin (Bld) [Mass/Vol]11.5 g/dLLow13.0 - 17.0 g/dLTrihealth Bethesda North HospitalImmature granulocytes (Bld) [#/Vol]0.03 10*3/uLNINFTrihealth Bethesda North HospitalImmature granulocytes/100 WBC (Bld)0.5 %[facility] HospitalInterpretation and review of laboratory resultsAbnormalCLancaster Municipal Hospital Lymphocytes (Bld) [#/Vol]1.59 10*3/uLTrihealth Bethesda North HospitalLymphocytes/100 WBC (Bld) 26.2 %[facility]inity Health SystemH (RBC) [Entitic mass]30.4 pg26.0 - 34.0 pgCParkwood HospitalHC (RBC) [Mass/Vol]32.9 g/dL30.5 - 36.0 g/dLTrinity Health SystemV (RBC) [Entitic vol]92.6 fL80.0 - 100.0 fLCLancaster Municipal HospitalMonocytes (Bld) [#/Vol]0.51 10*3/uLNIWexner Medical CenterMonocytes/100 WBC (Bld)8.4 %[facility] Neutrophils (Bld) [#/Vol]3.89 10*3/St. Anthony's HospitalNeutrophils/100 WBC (Bld) 63.9 %[facility] HospitalNucleated RBC (Bld) [#/Vol]NINFCLancaster Municipal HospitalNucleated RBC/100 WBC (Bld) [Ratio]0.0 %/100 WBCTrihealth Bethesda North HospitalPlatelet mean volume (Bld) [Entitic vol]10.6 fL9.0 - 12.7 fLCLancaster Municipal HospitalPlatelets (Bld) [#/Vol]168 10*3/St. Anthony's HospitalRBC (Bld) [#/Vol]3.78 10*6/uLLow4.20 - 6.00 m/St. Anthony's HospitalWBC (Bld) [#/Vol]6.08 10*3/[facility] HospitalBasophils (Bld) [#/Vol]10*3/uLNormal<0.11CMetroHealth Parma Medical CenterComment on above:Order Comment: Specimen Type: BLOOD SPECIMENOrdering Facility: [facility] Address:[address] [place], [place] [address]Performed By: #### 89877- 8 ####[facility] LABCLIA [id number] [place], [place] [address]Kfndlgxhq/100 WBC (Bld)0.3 %NormalCommunity Memorial Hospital on above:Order Comment: Specimen Type: BLOOD SPECIMENOrdering Facility: [facility] Address:[address] [place], [place] [address]Performed By: #### 34374-5 ####[facility] LABCLIA [id number] [place], [place] [address]Feibefavmwmu cell count method Nom (Bld)AutoNormalCKindred Healthcare on above:Order Comment: Specimen Type: BLOOD SPECIMENOrdering Facility: [facility] Address:[address] [place], [place] [address]Performed By: #### 63605-5 ####[facility] LABCLIA [id number] [place], [place] [address]Nhwtjhmjbob (Bld) [#/Vol]0.04 10*3/uLNormal<0.46[facility] on above:Order Comment: Specimen Type: BLOOD SPECIMENOrdering Facility: [facility] Address:[address] [place], [place] [address]Performed By: #### 76519-6 ####[facility] LABCLIA [id number] [place], [place] [address]Ozrcvsmzxgh/100 WBC (Bld)0.7 %NormalCommunity Memorial Hospital on above:Order Comment: Specimen Type: BLOOD SPECIMENOrdering Facility: [facility] Address:[address] [place], [place] [address]Performed By: #### 81987-6 ####[facility] LABCLIA [id number] [place], [place] [address]Ehamhytwfuv distribution width (RBC) [Ratio]13.6 %Normal 11.5-15.0[facility] on above:Order Comment: Specimen Type: BLOOD SPECIMENOrdering Facility: [facility] Address:[address] [place], [place] [address]Performed By: #### 53080-2 ####[facility] LABIA [id number] [place] [address] Hematocrit (Bld) [Volume fraction]35.0 %Low39.0-51.0[facility] Comment on above:Order Comment: Specimen Type: BLOOD SPECIMENOrdering Facility: [facility] Address:[address] [place] [address] Performed By: #### 72443-9 ####[facility] LABIA [id number] [place], [place] [address]Fafqhcexaq (Bld) [Mass/Vol]11.5 g/dLLow13.0-17.0[facility] on above:Order Comment: Specimen Type: BLOOD SPECIMENOrdering Facility: [facility] Address:[address] [place], [place] [address]Performed By: #### 88971-7 ####[facility] LABIA [id number] [place], [place] [address]Plfyclhq granulocytes (Bld) [#/Vol]0.03 10*3/uLNormal <0.10[facility] on above:Order Comment: Specimen Type: BLOOD SPECIMENOrdering Facility: [facility] Address:[address] [place], [place] [address]Performed By: #### 69742-6 ####[facility] LABIA [id number] [place], [place] [address]Gztfpjcg granulocytes/100 WBC (Bld)0.5 %NormalCommunity Memorial Hospital on above: Order Comment: Specimen Type: BLOOD SPECIMENOrdering Facility: [facility] Address:[address] [place], [place] [address]Performed By: #### 78489- 8 ####[facility] LABCLIA [id number] [place], [place] [address]Lcgvkxkzsqs (Bld) [#/Vol]1.59 10*3/uLNormal1.00-4.00 [facility] on above:Order Comment: Specimen Type: BLOOD SPECIMENOrdering Facility: [facility] Address:[address] [place], [place] [address]Performed By: #### 02234-7 ####[facility] LABCLIA [id number] [place], [place] [address]Dhlpyhpphcy/100 WBC (Bld)26.2 %NormalCommunity Memorial Hospital on above:Order Comment: Specimen Type: BLOOD SPECIMENOrdering Facility: [facility] Address:[address] [place], [place] [address]Performed By: #### 76434-5 ####[facility] LABCLIA [id number] [place], [place] [address]STG (RBC) [Entitic mass]30.4 bfSgnowu09.0-34.0[facility] on above:Order Comment: Specimen Type: BLOOD SPECIMENOrdering Facility: [facility] Address:[address] [place], [place] [address]Performed By: #### 39831-6 ####[facility] LABCLIA [id number] [place], [place] [address]RZGB (RBC) [Mass/Vol]32.9 g/bGDgrhnq86.5-36.0[facility] on above: Order Comment: Specimen Type: BLOOD SPECIMENOrdering Facility: [facility] Address:[address] [place], [place] [address]Performed By: #### 84371- 8 ####[facility] LABIA [id number] [place], [place] [address]WSQ (RBC) [Entitic vol]92.6 kDOrxzsk75.0-100.0[facility] on above:Order Comment: Specimen Type: BLOOD SPECIMENOrdering Facility: [facility] Address:[address] [place], [place] [address]Performed By: #### 41500-5 ####[facility] LABCLIA [id number] [place], [place] [address]Evradgcko (Bld) [#/Vol]0.51 10*3/uLNormal<0.87[facility] on above:Order Comment: Specimen Type: BLOOD SPECIMENOrdering Facility: [facility] Address:[address] [place], [place] [address]Performed By: #### 03460- 8 ####[facility] LABCLIA [id number] [place], [place] [address]Royqewvwp/100 WBC (Bld)8.4 %NormalCommunity Memorial Hospital on above:Order Comment: Specimen Type: BLOOD SPECIMENOrdering Facility: [facility] Address:[address] [place], [place] [address]Performed By: #### 45962-5 ####[facility] LABCLIA [id number] [place], [place] [address]Aqbjgqshhhh (Bld) [#/Vol]3.89 10*3/uLNormal1.45-7.50[facility] on above:Order Comment: Specimen Type: BLOOD SPECIMENOrdering Facility: [facility] Address:[address] [place], [place] [address]Performed By: #### 07583-1 ####[facility] LABCLIA [id number] [place], [place] [address]Vvxqpyecmrq/100 WBC (Bld)63.9 %NormalCommunity Memorial Hospital on above:Order Comment: Specimen Type: BLOOD SPECIMENOrdering Facility: [facility] Address:[address] [place], [place] [address]Performed By: #### 41690-6 ####[facility] LABCLIA [id number] [place], [place] [address]Qmrwzhghc RBC (Bld) [#/Vol] 10*3/uLNormal<0.01[facility] on above:Order Comment: Specimen Type: BLOOD SPECIMENOrdering Facility: [facility] Address:[address] [place], [place] [address]Performed By: #### 62891-6 ####[facility] LABCLIA [id number] [place], [place] [address]Knmgavptv RBC/100 WBC (Bld) [Ratio]0.0 /100 WBCNormal [facility] on above:Order Comment: Specimen Type: BLOOD SPECIMENOrdering Facility: [facility] Address:[address] [place], [place] [address]Performed By: #### 78950-3 ####[facility] LABIA [id number] [place], [place] [address]Ctjnixrl mean volume (Bld) [Entitic vol]10.6 fLNormal9.0-12.7CKindred Healthcare on above:Order Comment: Specimen Type: BLOOD SPECIMENOrdering Facility: [facility] Address:[address] [place] [address] Performed By: #### 59741-9 ####[facility] LABCLIA [id number] [place], [place] [address]Snrapccwm (Bld) [#/Vol]168 10*3/bLVwhfab219-763CcvbdtfkcCommunity Memorial Hospital on above:Order Comment: Specimen Type: BLOOD SPECIMENOrdering Facility: [facility] Address:[address] [place], [place] [address]Performed By: #### 81969-8 ####[facility] LABCLIA [id number] [place], [place] [address]GIF (Bld) [#/Vol]3.78 10*6/uLLow4.20-6.00[facility] on above:Order Comment: Specimen Type: BLOOD SPECIMENOrdering Facility: [facility] Address:[address] [place] [address]Jdeqxgwkx By: #### 71567-4 ####[facility] LABCLIA [id number] [place], [place] [address]LLP (Bld) [#/Vol]6.08 10*3/uL Normal3.70-11.00[facility] on above:Order Comment: Specimen Type: BLOOD SPECIMENOrdering Facility: [facility] Address:[address] [place] [address]Quddclemf By: #### 31536-3 ####[facility] LABCLIA [id number] [place], [place] [address]LV ABD/PEL W IVCONon [id number] ABD/PEL W IVCON* * *Final Report* * * DATE OF EXAM: Jun 04 2024 11:17AM [facility] 0530 - CT ABD/PEL W IVCON / [...] was performed concurrently and is dictated separately. Audiovisual Librarian (topogram) images: Unremarkable. IMPRESSION: Right lateral bladder [...] any questions regarding this interpretation, please call [phone]. If you are unable to reach us at the number above, please feel free to contact [facility] eRadiology at [phone]. [id number]_IDCSIACNNormalSheltering Arms Hospital Abdomen and Pelvis W contrast Anand 54-99-1247SCEDROUUND: Right lateral bladder wall thickening with mural [...] any questions regarding this interpretation, please call [phone]. If you are unable to reach us at the number above, please feel free to contact [facility]iology at [phone].DIVISION OF RADIOLOGY* * *Final Report* * * DATE OF EXAM: Jun 04 2024 11:17AM [facility] 0530 - CT ABD/PEL W IVCON / [...] was performed concurrently and is dictated separately. Audiovisual Librarian (topogram) images: Unremarkable. DIVISION OF RADIOLOGYProvider, [facility] [place] - 06/04/2024 * * *Final Report* * * DATE OF EXAM: Jun 04 2024 11:17AM [facility] 0530 - CT ABD/PEL W IVCON / [...] was performed concurrently and is dictated separately. Audiovisual Librarian (topogram) images: Unremarkable. IMPRESSION IMPRESSION: Right lateral [...] any questions regarding this interpretation, please call [phone]. If you are unable to reach us at the number above, please feel free to contact [facility] eRadiology at [phone]. [facility] Abdomen and Pelvis W contrast IVOrdered By: Ccf Provider on 34-15-5943Omfirhzkg ClinicCT CHEST W IVCONon [id number] CHEST W IVCON* * *Final Report* * * DATE OF EXAM: Jun 04 2024 11:17AM [facility] 0539 - CT CHEST W IVCON / [...] was performed concurrently and is dictated separately. Audiovisual Librarian (topogram) images: Unremarkable. IMPRESSION: Unchanged 8 mm [...] any questions regarding this interpretation, please call [phone]. If you are unable to reach us at the number above, please feel free to contact [facility] eRadiology at [phone]. [id number]_IDCSIACNNormalAshtabula County Medical CenterCT Chest W contrast Anand 33-68-7855JQSSIWIHIN: Unchanged 8 mm left lower lobe nodule [...] any questions regarding this interpretation, please call [phone]. If you are unable to reach us at the number above, please feel free to contact [facility] eRadiology at [phone].DIVISION OF RADIOLOGY* * *Final Report* * * DATE OF EXAM: Jun 04 2024 11:17AM [facility] 0539 - CT CHEST W IVCON / [...] was performed concurrently and is dictated separately. Audiovisual Librarian (topogram) images: Unremarkable. DIVISION OF RADIOLOGYProvider, [facility] [place] - 06/04/2024 * * *Final Report* * * DATE OF EXAM: Jun 04 2024 11:17AM [facility] 0539 - CT CHEST W IVCON / [...] was performed concurrently and is dictated separately. Audiovisual Librarian (topogram) images: Unremarkable. IMPRESSION IMPRESSION: Unchanged 8 [...] any questions regarding this interpretation, please call [phone]. If you are unable to reach us at the number above, please feel free to contact [facility] eRadiology at [phone]. [facility] CenterComprehensive metabolic 2000 panelOrdered By: Mukesh Donohue on 09-90-4033Rezaswy [Mass/Vol]4.0 g/dL3.9 - 4.9 g/dLKermit ClinicALP [Catalytic activity/Vol]101 U/L38 - 113 U/LCleveland ClinicALT [Catalytic activity/Vol]13 U/L10 - 54 U/LCleveland ClinicAnion gap [Moles/Vol]9 mmol/L8 - 15 mmol/LCleveland ClinicAST [Catalytic activity/Vol]13 U/LLow14 - 40 U/LCleveland ClinicBilirubin [Mass/Vol]0.3 mg/dL0.2 - 1.3 mg/dLTrihealth Bethes[facility] Hospital Calcium [Mass/Vol]9.8 mg/dL8.5 - 10.2 mg/dLKermit ClinicChloride [Moles/Vol] 100 mmol/L98 - 107 mmol/LCleveland ClinicCO2 [Moles/Vol]27 mmol/L22 - 30 mmol/L [facility] HospitalCreatinine [Mass/Vol]1.56 mg/dLHigh0.73 - 1.22 mg/dLTrihealth Bethesda North HospitalGFR/1.73 sq M.predicted among non-blacks MDRD (S/P/Bld) [Vol rate/Area]45 mL/min/{1.73_m2}Low- PINFCleveland ClinicComment on above:Estimated Glomerular Filtration Rate (eGFR) is calculated using the 2020 CKD-EPI creatinine equation. This equation utilizes serum creatinine, sex, and age as parameters. The creatinine assay has traceable calibration to isotope dilution-mass spectrometry. Refer to KDIGO guidelines for clinical interpretation. In patients with unstable renal function, e.g. those with acute kidney injury, the eGFRmay not accurately reflect actual GFR.Glucose [Mass/Vol]124 mg/pMCrxf60 - 99 mg/dL [facility] on above:The [place] Diabetes Association (ADA) provides guidance for cutoff values for fasting glucose andrandom glucose. The ADA defines fasting as no caloric intake for at least 8 hours. Fasting plasma gl ucose results between 100 to 125 mg/dL indicate [...] Standards of Medical Care in Diabetes 2016, [place] Diabetes Association. Diabetes Care. 2016.39(Suppl 1). Interpretation and review of laboratory resultsAbnormalCleveland ClinicPotassium [Moles/Vol]4.8 mmol/L3.7 - 5.1 mmol/LClevelst. luke's hospital ClinicProtein [Mass/Vol]7.1 g/dL 6.3 - 8.0 g/dLAvita Health System Ontario Hospitalodium [Moles/Vol]136 mmol/L136 - 144 mmol/L [facility] HospitalUrea nitrogen [Mass/Vol]39 mg/dLHigh9 - 24 mg/dLSumma HealthComprehensive metabolic 2000 panelon 98-82-0661Atigrsd [Mass/Vol]4.0 g/dLNormal3.9-4.9CKindred Healthcare on above:Order Comment: Specimen Type: BLOOD SPECIMENOrdering Facility: [facility] Address:[address] [place], [place] [address]Ttqlavmjk By: #### 11196- 8 ####[facility] LABCLIA [id number] [place], [place] [address]ZLS [Catalytic activity/Vol]101 U/TTzkhup05-004YhmcunsbpCommunity [facility] on above:Order Comment: Specimen Type: BLOOD SPECIMENOrdering Facility: [facility] Address:[address] [place], [place] [address]Performed By: #### 65406-8 ####[facility] ROADNAYA [facility] LABCLIA [id number] [place] [address]UOZ [Catalytic activity/Vol]13 U/GLxfypm61-94LvwkucmcnCommunity Memorial Hospital on above:Order Comment: Specimen Type: BLOOD SPECIMENOrdering Facility: [facility] Address:[address] [place], [place] [address]Performed By: #### 49668- 8 ####[facility] LABCLIA [id number] [facility] OTONIEL MALDONADOBANNER ESTRELLA MEDICAL CENTERSTEPHANIANEW [place], [place] [address]Cgavy gap [Moles/Vol]9 mmol/LNormal8-15[facility] on above:Order Comment: Specimen Type: BLOOD SPECIMENOrdering Facility: [facility] Address:[address] [place], [place] [address]Performed By: #### 97958-8 ####[facility]ADNA[facility] LABCLIA [id number] [facility] OTONIELPADMINIOLIVIA, [place] [address]BLP [Catalytic activity/Vol]13 U/DSai60-66DtfcfciabCommunity [facility] Hospital on above:Order Comment: Specimen Type: BLOOD SPECIMENOrdering Facility: [facility] Address:[address] [place], [place] [address]Performed By: #### 14988-9 ####[facility] LABCLIA [id number] [facility]PITALPADMINIBANNER ESTRELLA MEDICAL [place] [address] Bilirubin [Mass/Vol]0.3 mg/dLNormal0.2-1.3CKindred Healthcare on above:Order Comment: Specimen Type: BLOOD SPECIMENOrdering Facility: [facility] Address:[address] [place], [place] [address]Performed By: #### 64981-0 ####[facility] LABCLIA [id number] [facility]OVE HOSPITALPADMINIOLIVIA, [place] [address]Tsnvrln [Mass/Vol]9.8 mg/dLNormal8.5-10.2CKindred Healthcare on above:Order Comment: Specimen Type: BLOOD SPECIMENOrdering Facility: [facility] Address:[address] [place], [place] [address]Performed By: #### 46110-0 ####[facility] LABCLIA [id number] [place], [place] [address]Aafccvib [Moles/Vol]100 mmol/QSundyj33-233LeaotfydyCommunity Memorial Hospital on above: Order Comment: Specimen Type: BLOOD SPECIMENOrdering Facility: [facility] Address:[address] [place], [place] [address]Performed By: #### 86847- 8 ####[facility] LABCLIA [id number] [place], [place] [address]DF2 [Moles/Vol]27 mmol/TRanbzw69-76PeblcpbbcCommunity [facility] Hospital on above:Order Comment: Specimen Type: BLOOD SPECIMENOrdering Facility: [facility] Address:[address] [place], [place] [address]Performed By: #### 68155-9 ####[facility] LABCLIA [id number] [place], [place] [address]Rfqvigwebb [Mass/Vol]1.56 mg/dL High0.73-1.22[facility] on above:Order Comment: Specimen Type: BLOOD SPECIMENOrdering Facility: [facility] Address:[address] [place], [place] [address]Performed By: #### 34552-5 ####[facility] LABCLIA [id number] [place] [address] Creatinine and Glomerular filtration rate.predicted panel (S/P/Bld)45 mL/min/1.73m???Low>=60[facility] on above:Order Comment: Specimen Type: BLOOD SPECIMENOrdering Facility: [facility] Address:[address] [place], [place] [address]Result Comment: Estimated Glomerular Filtration Rate (eGFR) is calculated using the 2020 CKD-EPI creatinine equation. This equation utilizes serum creatinine, sex, and age as parameters. The creatinine assay has traceable calibration to isotope dilution-mass spectrometry. Refer to KDIGO guidelines for clinical interpretation. In patients with unstable renal function, e.g. those with acute kidney injury, the eGFR may not accurately reflect actual GFR.Performed By: #### 55177-4 ####[facility] LABCLIA [id number] [place] [address] Glucose [Mass/Vol]124 mg/dHBeuw28-01PvaczrjnuCommunity Memorial Hospital on above: Order Comment: Specimen Type: BLOOD SPECIMENOrdering Facility: [facility] Address:[address] [place], [place] [address]Result Comment: The [place] Diabetes Association (ADA) provides guidance for cutoff values for fast ing glucose and random glucose. The ADA defines [...] Standards of Medical Care in Diabetes 2016, [place] Diabetes Association. Diabetes Care. 2016.39(Suppl 1).Performed By: #### 55283-0 ####[facility] LABCLIA [id number] [place], [place] [address]Fckyqgulu [Moles/Vol]4.8 mmol/LNormal3.7-5.1CKindred Healthcare on above:Order Comment: Specimen Type: BLOOD SPECIMENOrdering Facility: [facility] Address:[address] [id number] By: #### 21735-5 ####[facility] LABCLIA [id number] [place], [place] [address]Vzriemg [Mass/Vol]7.1 g/dLNormal6.3-8.0[facility] on above:Order Comment: Specimen Type: BLOOD SPECIMENOrdering Facility: [facility] Address:[address] [place], [place] [address]Performed By: #### 34648- 8 ####[facility] LABCLIA [id number] [place], [place] [address]Adbuam [Moles/Vol]136 mmol/WPzugpm786-905RaqfnzrtpCommunity Memorial Hospital on above:Order Comment: Specimen Type: BLOOD SPECIMENOrdering Facility: [facility] Address:[address] [place], [place] [address]Performed By: #### 71745-6 ####[facility] LABCLIA [id number] [place], [place] [address]Fboa nitrogen [Mass/Vol]39 mg/dLHigh9-24[facility] on above:Order Comment: Specimen Type: BLOOD SPECIMENOrdering Facility: [facility] Address:[address] [place], [place] [address]Performed By: #### 86047-7 ####[facility] LABIA [id number] [place] [address] No Panel Informationon 75-68-4561Dyzizhbgc Study observation (narrative) [facility] HospitalCNPNon 39-77-6034MOEKIprvlryze (HEMTSA) JOLLY SIERRA ([id number]) 1945 M Date Time Provider Department 04/28/24 [...] [D49.4] Order(s):COMPREHENSIVE METABOLIC PANEL [SQCMP] Order #: [id number] FUTURE COMPLETE BLOOD COUNT AND DIFFERENTIAL [SQCBCDIF] Order #: [id number] FUTURE Prescriptions as of 04/28/2024 - spironolactone [...] chemotherapy induced anemia [D64*01/28/2024 Encounter Status:Closed by LANA DAWKINS on 04/28/24[facility] CenterShandra [id number] (URFHR) JOLLY SIERRA ([id number]) 1945 Date Time Provider Department 02/19/24 MAHI HANSEN URFHR During your visit today, we recorded the [...] [D64*01/28/2024 Encounter Status:Closed by MAHI HANSEN on 02/19/24[facility] CNPNTkarenphone (URFMOB) JOLLY SIERRA ([id number]) 1945 M Date Time Provider Department 02/19/24 [...] Date Reviewed: 02/18/2024 Reviewed by: Joce Fox, HANK - Fully Assessed Reason for Visit: Results [...] [D64*01/28/2024 Encounter Status:Closed by JASON WILL on 02/19/24[facility] ANES POSTPROC EVALon 62-29-7227MODZ POSTPROC EVALHNO ID: [id number] Author: DARREN REYES DO Service: Anesthesiology Author [...] February 18, 2024 TIME: 11:13 AM CSN: [id number] HospitalANES PRE-OPon 08-79-2800JKTE PRE-OPHNO ID: [id number] Author: DARREN REYES DO Service: Anesthesiology Author Type: Anesthesiologist Type: Anesthesia Preprocedure Evaluation Filed: 02/18/2024 09:10 Note Text: ANESTHESIOLOGY DAY OF SURGERY NOTE : 1945 Procedure Information Date/Time: 02/18/24 0945 Procedure: CYSTOURETHROSCOPY W/FULGURATION AND/OR RESECTION MEDIUM BLADDER [...] Polk present: no Lip Bite Test: III Microretrognathia/Micronagthia/Recessed Chin: Yes DENTAL Dental findings: teeth intact. [...] and consent discussed: yes. Patient / Responsible Libertarian agrees to proceed: yes Patient / Surrogate [...] ?C (96.6 ?F) 02/18/24852 SpO2 100 % 02/18/24852 Facility-Administered Medications as of 02/18/2024 Medication Dose [...] February 18, 2024 TIME: 9:09 AM CSN: [id number] Hospital 02-18-2024 [facility] ID: [id number] Author: RACIEL BENJAMIN, HANK Service: Nursing Author Type: Registered Nurse Type: Nursing Progress Note Filed: 02/18/2024 08:41 Note Text: READINESS TO LEARN COGNITIVE ABILITY: Alert and oriented MOTIVATION TO LEARN: Eager Interested FAMILY SUPPORT: None - Unavailable/disinterested INSTRUCTION PROVIDED TO: Patient PATIENT LEARNS BEST [...] None REFERRAL (RECOMMENDATION): None Electronically Signed By: [facility]itrick HospitalOPERATIVE NOon 57-46-9685CGXTQPZEH NOHNO ID: [id number] Author: JASON WILL MD Service: Urology Author Type: Physician Type: Operative Report Filed: 02/18/2024 10:12 Note Text: OPERATIVE/PROCEDURE REPORT LOG ID: [id number] Surgery/Procedure Date: 02/18/2024 Incision/Procedure Start Time: 9:50 AM Incision Close/Procedure End Time: 10:01 AM Surgeon(s)/Proceduralist(s) and Refrigeration Manager(s): Surgeons and Role: * Jason Will MD [...] in the usual sterile fashion. A 22-1/2 Romansh cystoscope was advanced through the urethra into [...] February 18, 2024 TIME: 10:07 AM PAGER/CONTACT #:[facility] EDon [id number] EDHNO ID: [id number] Author: JOCE FOX RN Service: ? Author [...] REFERRAL (RECOMMENDATION): None Electronically Signed By: Joce DuBoston [facility] PATHOLOGYon [id number] REPORTWinchendon Hospital on above:Order Comment: Specimen Type: TISSUE SPECIMEN [facility] Address: [address] [place], [place] [address]Result Comment: Surgical Pathology Report Case: [id number] Authorizing Provider: Jason Will MD Collected: 02/18/2024 09:53 AM Ordering Location: [facility] Received: 02/18/2024 11:36 AM Operating Room Pathologist: Leia Warren MD Specimen: Bladder, Biopsy, bladder neoplasmPerformed By: #### S #### [facility] CLIA [id number] [address] [place] [address] HISTORYHolden HospitalCommclaren bay region on above:Order Comment: Specimen Type: TISSUE SPECIMEN [facility] Address: [address] [place], [place] [address]Result Comment: 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 Urinary bladder,biopsy: - Bladder mucosa with mixed acute and chronic inflammation and reactive changes. - No muscularis propria identified. Performed By: #### S #### [facility] CLIA [id number] [address] [place] [address] PERFORMING LABFitchburg General Hospital on above:Order Comment: Specimen Type: TISSUE SPECIMEN [facility] Address: [address] [place], [place] [address]Result Comment: Diagnostic interpretation performed at [facility], [address] [place] [address] CLIA# [id number] Machine Paint Mixer: Gordon Sorto M.D.Performed By: #### S #### [facility] CLIA [id number] [address] [place] [address] [place] AMERICAGROSS DESCRIPTIONNormal [facility] HospitalComment on above:Order Comment: Specimen Type: TISSUE SPECIMEN [facility] Address: [address] [place], [place] [address]Result Comment: A. Bladder, Biopsy Received in formalin are multiple pieces of man and man-brown, rubbery tissue aggregating to 0.6 x 0.5 x 0.2 cm. Totally submitted in one cassette. [facility] February 18, 2024 3:11 PM Gross examination performed at [place], [place] [address]Performed By: #### S #### [facility] [place] [id number] [address] [place] [address] W Auto Differential panel (Bld)on 30-37-0416Fwhqzxvzw (Bld) [#/Vol]0.03 10*3/uLNINFTrihealth Bethesda North Hospital Basophils/100 WBC (Bld)0.4 %[facility] HospitalDifferential cell count method Nom (Bld)AutoCleveland ClinicEosinophils (Bld) [#/Vol]0.03 10*3/uLNINFTrihealth Bethesda North HospitalEosinophils/100 WBC (Bld)0.4 %[facility] HospitalErythrocyte distribution width (RBC) [Ratio]15.8 %High11.5 - 15.0 %[facility] HospitalHematocrit (Bld) [Volume fraction]30.4 %Low39.0 - 51.0 %[facility] HospitalHemoglobin (Bld) [Mass/Vol]9.8 g/dLLow13.0 - 17.0 g/dLTrihealth Bethesda North HospitalImmature granulocytes (Bld) [#/Vol]0.05 10*3/uLNINFTrihealth Bethesda North HospitalImmature granulocytes/100 WBC (Bld)0.7 % [facility] HospitalInterpretation and review of laboratory resultsAbnormalCleveland ClinicLymphocytes (Bld) [#/Vol]1.50 10*3/uLTrihealth Bethesda North HospitalLymphocytes/100 WBC (Bld)20.7 %[facility] SystemH (RBC) [Entitic mass]32.1 pg26.0 - 34.0 pg Trinity Health SystemHC (RBC) [Mass/Vol]32.2 g/dL30.5 - 36.0 g/dLTrihealth Bethesda North Hospital MCV (RBC) [Entitic vol]99.7 fL80.0 - 100.0 fLClevelst. luke's hospital ClinicMonocytes (Bld) [#/Vol]0.71 10*3/NINFTrihealth Bethesda North HospitalMonocytes/100 WBC (Bld)9.8 %[facility] HospitalNeutrophils (Bld) [#/Vol]4.91 10*3/uLTrihealth Bethesda North HospitalNeutrophils/100 WBC (Bld)68.0 %[facility] HospitalNucleated RBC (Bld) [#/Vol]NINFClevelNewark Hospital Nucleated RBC/100 WBC (Bld) [Ratio]0.0 %/100 WBCTrihealth Bethesda North HospitalPlatelet mean volume (Bld) [Entitic vol]10.7 fL9.0 - 12.7 fLCcity hospital ClinicPlatelets (Bld) [#/Vol]136 10*3/uLLowKermit ClinicRBC (Bld) [#/Vol]3.05 10*6/uLLow4.20 - 6.00 m/St. Anthony's HospitalWBC (Bld) [#/Vol]7.23 10*3/uLFulton County Health CenterComprehensive metabolic 2000 panelOrdered By: Mehnaz Pugh on 02-12-2024 Albumin [Mass/Vol]3.9 g/dL3.9 - 4.9 g/dLKermit ClinicALP [Catalytic activity/Vol]77 U/L38 - 113 U/LCleveland ClinicALT [Catalytic activity/Vol]7 U/L Low10 - 54 U/LCleveland ClinicAnion gap [Moles/Vol]7 mmol/LLow8 - 15 mmol/L Kermit ClinicAST [Catalytic activity/Vol]10 U/LLow14 - 40 U/LCleveland Clinic Bilirubin [Mass/Vol]0.3 mg/dL0.2 - 1.3 mg/dLKermit ClinicCalcium [Mass/Vol] 9.7 mg/dL8.5 - 10.2 mg/dLKermit ClinicChloride [Moles/Vol]105 mmol/L98 - 107 mmol/LCleveland ClinicCO2 [Moles/Vol]29 mmol/L22 - 30 mmol/LCleveland Clinic Creatinine [Mass/Vol]1.35 mg/dLHigh0.73 - 1.22 mg/dLKermit ClinicGFR/1.73 sq M.predicted among non-blacks MDRD (S/P/Bld) [Vol rate/Area]54 mL/min/{1.73_m2} Low- PINFCleveland ClinicComment on above:Estimated Glomerular Filtration Rate (eGFR) is calculated using the 2020 CKD-EPI creatinine equation. This equation utilizes serum creatinine, sex, and age as parameters. The creatinine assay has traceable calibration to isotope dilution-mass spectrometry. Refer to KDIGO guidelines for clinical interpretation. In patients with unstable renal function, e.g. those with acute kidney injury, the eGFRmay not accurately reflect actual GFR.Glucose [Mass/Vol]198 mg/eVZqki35 - 99 mg/dLTrihealth Bethesda North Hospital Comment on above:The [place] Diabetes Association (ADA) provides guidance for cutoff [...] Standards of Medical Care in Diabetes 2016, [place] Diabetes Association. Diabetes Care. 2016.39(Suppl 1). Interpretation and review of laboratory resultsAbnormalCleveland ClinicPotassium [Moles/Vol]4.8 mmol/L3.7 - 5.1 mmol/LCleveland ClinicProtein [Mass/Vol]7.3 g/dL 6.3 - 8.0 g/dLKermit ClinicSodium [Moles/Vol]141 mmol/L136 - 144 mmol/L [facility] HospitalUrea nitrogen [Mass/Vol]34 mg/dLHigh9 - 24 mg/dLSumma HealthMAGNESIUMon 79-66-6441Igqgcingh [Mass/Vol]1.9 mg/dL1.7 - 2.3 mg/dLTrihealth Bethesda North HospitalMagnesium [Mass/Vol]on 16-75-4828Yizksfaghbsznf and review of laboratory resultsNormalCMercy Health St. Charles HospitalCNPNon [id number] Telephone (URR) JOLLY SIERRA ([id number]) 1945 M Date Time Provider Department 02/11/24 [place] [facility] During your visit today, we recorded the [...] Procedure: TURBT Physician: Dr. Jason Will Location: [facility]: [phone] Date AND Time: 02/18/2024 MEDICAL CLEARANCE: No CARDIAC CLEARANCE: No PRE ADMISSION TESTIN01/28/24 AT: [place] THE FOLLOWING WAS EVALUATED Motivation To Learn: [...] Naprosyn(naproxen) Agrylin NSAIDS Pepto-Bismol Aleve Ecotrin Persantine Cyndi-Ardmore Excedrin Plaquenil Anacin Heparin Plavix Ascriptin Herbals [...] - IV pain medication after surgery, IV DAIRY CLERK if ordered by MD, discharged home with a prescription for PO pain medication, pain management after surgery, side effects of pain medication (including constipation, dizziness, drowsiness, and medication interactions). DVT PROPHYLAXIS - Early ambulation, SCDs, injectable anticoagulants (heparin, lovenox, etc) RESPIRATORY - Incentive spirometer, coughing/deep breathing exercises, ambulation. RETURN TO WORK - As directed by physician, please send any FMLA papers to physician's executive secretary. SYMPTOMS TO NOTIFY MD - Fever, chills, nausea, vomiting, increased or severe pain, heavy bleeding, foul smelling drainage, pain or swelling in extremities. URGENT SYMPTOMS - Call 911 or go to ER if any shortness of breath, difficulty breathing, or chest pain. HOW TO CONTACT PHYSICIAN - Physician's office phone number given to patient, if after hours patient instructed to call packing line operator and ask for the doctor control valve mechanic. Patient and family have phone number to call 24 hours/day. Patient Evaluation: Verbalizes understanding Patient and/or family express understanding of upcoming surgery and the operat (more content not included)...[facility] HospitalACTIVATED PARTIAL THROMBOPLASTIN TIMEOrdered By: Rhona Mdeel on 78-09-9931cXUE Coag (PPP) [Time] 27.3 [facility] HospitalComment on above:Frozen Plasma AliquotCBC W Auto Differential panel (Bld)on 37-88-7846Ewgybyebd (Bld) [#/Vol][facility] Basophils/100 WBC (Bld)0.5 %[facility] HospitalDifferential cell count method Nom (Bld)AutoClevelst. luke's hospital ClinicEosinophils (Bld) [#/Vol][facility] Eosinophils/100 WBC (Bld)0.2 %[facility] HospitalErythrocyte distribution width (RBC) [Ratio]16.9 %High11.5 - 15.0 %[facility] HospitalHematocrit (Bld) [Volume fraction]26.6 %Low39.0 - 51.0 %[facility] HospitalHemoglobin (Bld) [Mass/Vol]8.9 g/dLLow13.0 - 17.0 g/dLTrihealth Bethesda North HospitalImmature granulocytes (Bld) [#/Vol]NINF [facility] Ohiomature granulocytes/100 WBC (Bld)0.5 %[facility] Interpretation and review of laboratory resultsAbnormalCLancaster Municipal Hospital Lymphocytes (Bld) [#/Vol]1.03 10*3/uLTrihealth Bethesda North HospitalLymphocytes/100 WBC (Bld) 23.9 %[facility]inity Health SystemH (RBC) [Entitic mass]32.0 pg26.0 - 34.0 pgCParkwood HospitalHC (RBC) [Mass/Vol]33.5 g/dL30.5 - 36.0 g/dLTrinity Health SystemV (RBC) [Entitic vol]95.7 fL80.0 - 100.0 fLCLancaster Municipal HospitalMonocytes (Bld) [#/Vol]0.63 10*3/uLNINFTrihealth Bethesda North HospitalMonocytes/100 WBC (Bld)14.6 %[facility] Neutrophils (Bld) [#/Vol]2.60 10*3/uLTrihealth Bethesda North HospitalNeutrophils/100 WBC (Bld) 60.3 %[facility] HospitalNucleated RBC (Bld) [#/Vol]NINFClevelNewark HospitalNucleated RBC/100 WBC (Bld) [Ratio]0.0 %/100 WBCTrihealth Bethesda North HospitalPlatelet mean volume (Bld) [Entitic vol]11.5 fL9.0 - 12.7 fLCLancaster Municipal HospitalPlatelets (Bld) [#/Vol]91 10*3/uLCentervilleComment on above:No clot detected.Results checked and verified.RBC (Bld) [#/Vol]2.78 10*6/uLLow4.20 - 6.00 m/[facility]. Anthony's HospitalWBC (Bld) [#/Vol]4.31 10*3/uLFulton County Health CenterComprehensive metabolic 2000 panelOrdered By: Mukesh Donohue on 66-78-6832Uouwdml [Mass/Vol]3.8 g/dLLow3.9 - 4.9 g/dLKermit ClinicALP [Catalytic activity/Vol]66 U/L38 - 113 U/L Kermit ClinicALT [Catalytic activity/Vol]18 U/L10 - 54 U/LCLancaster Municipal Hospital Anion gap [Moles/Vol]12 mmol/L8 - 15 mmol/LCcity hospital ClinicAST [Catalytic activity/Vol]17 U/L14 - 40 U/LCleveland ClinicBilirubin [Mass/Vol]0.2 mg/dL0.2 - 1.3 mg/dLKermit ClinicCalcium [Mass/Vol]9.0 mg/dL8.5 - 10.2 mg/dLTrihealth Bethesda North HospitalChloride [Moles/Vol]103 mmol/L98 - 107 mmol/LCleveland ClinicCO2 [Moles/Vol]26 mmol/L22 - 30 mmol/LCleveland ClinicCreatinine [Mass/Vol]1.24 mg/dLHigh0.73 - 1.22 mg/dLKermit ClinicGFR/1.73 sq M.predicted among non- blacks MDRD (S/P/Bld) [Vol rate/Area]60 mL/min/{1.73_m2}- [facility] Comment on above:Estimated Glomerular Filtration Rate (eGFR) is calculated using the 2020 CKD-EPI creatinine equation. This equation utilizes serum creatinine, sex, and age as parameters. The creatinine assay has traceable calibration to isotope dilution-mass spectrometry. Refer to KDIGO guidelines for clinical inte rpretation. In patients with unstable renal function, e.g. those with acute kidney injury, the eGFRmay not accurately reflect actual GFR.Glucose [Mass/Vol] 178 mg/dYDmhz32 - 99 mg/dLTrihealth Bethesda North HospitalComment on above:The [place] Diabetes Association (ADA) provides guidance for cutoff [...] Standards of Medical Care in Diabetes 2016, [place] Diabetes Association. Diabetes Care. 2016.39(Suppl 1). Interpretation and review of laboratory resultsAbnormalCleveland ClinicPotassium [Moles/Vol]3.9 mmol/L3.7 - 5.1 mmol/LCleveland ClinicProtein [Mass/Vol]6.4 g/dL 6.3 - 8.0 g/dLAvita Health System Ontario Hospitalodium [Moles/Vol]141 mmol/L136 - 144 mmol/L [facility] HospitalUrea nitrogen [Mass/Vol]28 mg/dLHigh9 - 24 mg/dLSumma HealthNo Panel InformationOrdered By: Rhona Medel on 01-15-2024 Interpretation and review of laboratory resultsNormalCleveland Lima Memorial HospitalPT panel Coag (PPP)on 64-19-0613MTF Coag (PPP) [Relative time]1.0 {INR}0.9 - 1.3Cleveland ClinicComment on above:Vitamin K Antagonist (VKA) Therapeutic Range: INR 2 to 3 (Target INR of 2.5) Note: For patients treated with VKA drugs, such as warfarin, the [place] [employer] 2012 Guideline recommends [...] Chest 2012, 141:7S-47S Eliane RA, et al. JAC 2017, 70: 252-289 PT Coag (PPP) [Time]10.8 [facility] Memorial HospitalaPTT Coag (PPP) [Time]Ordered By: Rhona Medel on 82-76-2927Hiyauoxaczrrko Heparin Therapeutic Ranges: Standard Heparin Nomogram: 53 to 78 seconds (anti-Xa level of 0.3 to 0.7 U/ml) Low Dose/ACS Nomogram: 49 to 67 seconds (anti-Xa level of 0.2 to 0.5 U/ml) Stroke Treatment Nomogram: 49 to 67 seconds (anti-Xa level of 0.2 to 0.5 U/ml) Note: The APTT therapeutic range has been determined for the current lot of laboratory APTT reagentin use throughout the [facility]. [facility] HospitalCNOVon 67-00-0126SHCVSokbpy Visit (URFMOB) RIGOJOLLY ([id number]) 1945 M Date Time Provider Department 01/04/24 2:00 PM [facility] During your visit today, we recorded the [...] Education Session: None Instruction Provided To: Patient Surgical Orderly Present: not applicable Discipline: Nursing Learning Topic: [...] avidity. Continued attention on (more content not included)...NormalMontrose HospitalCYTOLOGY NON-GYNon [id number] REPORT [facility] Women's HospitalCommclaren bay region on above:Order Comment: Specimen Type: URINE SPECIMEN Ordering Facility: [facility] Address: [address] [place], [place] [address]Result Comment: Medical Cytology Report Case: [id number] Authorizing Provider: Jason Will MD Collected: 01/04/2024 02:22 PM Ordering Location: Urology Received: 01/04/2024 04:13 PM Pathologist: Daphnie Herrera MD Specimen: Urine, MidstreamPerformed By: #### CYTONON #### [facility] CLIA [id number] [address] [place], [place] [address]CLINICAL HISTORYHistory of bladder cancerNormBoston University Medical Center Hospital HospitalComment on above:Order Comment: Specimen Type: URINE SPECIMEN Ordering Facility: [facility] Address: [address] [place], [place] [id number] By: #### CYTONON #### [facility] CLIA [id number] [address] [place] [address] DIAGNOSISNormSolomon Carter Fuller Mental Health CenterComment on above:Order Comment: Specimen Type: URINE SPECIMEN Ordering Facility: [facility] Address: [address] [place], [place] [id number] Comment: A - Urine, Midstream, Urine Negative for high-grade urothelial carcinoma. Acute inflammation. Blood. Performed By: #### CYTONON #### [facility] CLIA [id number] [address] [place], [place] [address]FINAL PERFORMING LABNormBoston University Medical Center Hospital HospitalComment on above:Order Comment: Specimen Type: URINE SPECIMEN Ordering Facility: [facility] Address: [address] [place], [place] [address]Result Comment: Technical component, diesel mechanic screening performed at [facility], [address] [place] [address] CLIA# [id number] Diagnostic interpretation performed at [facility], [address] [place] [address] CLIA# [id number] Machine Paint Mixer: Marco Antonio Russell M.D.Performed By: #### CYTONON #### [facility] CLIA [id number] [place] [address] [place] STATES OF AMERICAGROSS DESCRIPTIONNormalFawalden behavioral care HospitalComment on above:Order Comment: Specimen Type: URINE SPECIMEN Ordering Facility: [facility] Address: [address] [place], [place] [address]Result Comment: A. Urine, Midstream 9 cc cloudy yellow fluid. ThinPrep prepared.Performed By: #### CYTONON #### [facility] CLIA [id number] [address] [place] [address] STATES [facility] HOSPITALUA DIP, URINE (POC)on 01-04-2024 BILIRUBIN UA (POCT)NegativeNegativeKermit ClinicCLARITY UA (POCT)Cloudy [facility] HospitalCOLOR UA (POCT)YellowTrihealth Bethesda North HospitalGLUCOSE UA (POCT)100 mg/dL AbnormalNegativeTrihealth Bethesda North HospitalHemoglobin Ql (U)ModerateAbnormalNegative [facility] HospitalInterpretation and review of laboratory resultsAbnormalCleveland ClinicKETONE UA (POCT)NegativeNegative mg/dLTrihealth Bethesda North HospitalLEUKOCYTES UA (POCT)TraceAbnormalNegativeKermit ClinicNITRITE UA (POCT)NegativeNegative [facility] HospitalPH UA (POCT)5.54.5 - 8.0[facility] HospitalProtein Ql (U)30 mg/dL AbnormalNegativeAvita Health System Ontario HospitalPECIFIC GRAVITY UA (POCT)1.0251.005 - 1.030 [facility] HospitalUROBILINOGEN UA (POCT)0.2Normal E.U./dLTrihealth Bethesda North Hospital Location:[facility], [address] [place], [place], [address] [place] [address] POINT OF CARETrihealth Bethesda North HospitalFERRITINon 02-04-9043Tneojhpo [Mass/Vol]507.0 ng/mL 30.3 - 565.7 ng/mLCleveland ClinicFerritin [Mass/Vol]on 72-32-0647Lnwhaglboicktp and review of laboratory resultsNormalCcommunity regional medical centerand Lima Memorial HospitalIron and Iron binding capacity panelon 81-44-2171Djvavtqtmyyurr and review of laboratory resultsNormalCleveland ClinicIron [Mass/Vol]51 ug/dL41 - 186 ug/dLTrihealth Bethesda North HospitalIron binding capacity [Mass/Vol]270 ug/dL232 - 386 ug/dLTrihealth [facility] Hospital Iron/TIBC [Molar ratio]18.9 %15.0 - 57.0 %[facility] metabolic 2000 panelOrdered By: Amarilis Robertson on 14-05-4974Jgfqr gap [Moles/Vol]12 mmol/L8 - 15 mmol/LCleveland ClinicCalcium [Mass/Vol]9.5 mg/dL8.5 - 10.2 mg/dL Kermit ClinicChloride [Moles/Vol]105 mmol/L98 - 107 mmol/LCleveland ClinicCO2 [Moles/Vol]26 mmol/L22 - 30 mmol/LCleveland ClinicCreatinine [Mass/Vol]1.09 mg/dL0.73 - 1.22 mg/dLTrihealth Bethesda North HospitalGFR/1.73 sq M.predicted among non-blacks MDRD (S/P/Bld) [Vol rate/Area]69 mL/min/{1.73_m2}- PINFCLancaster Municipal HospitalComment on above:Estimated Glomerular Filtration Rate (eGFR) is calculated using the 2020 CKD-EPI creatinine equation. This equation utilizes serum creatinine, sex, and age as parameters. The creatinine assay has traceable calibration to isotope dilution-mass spectrometry. Refer to KDIGO guidelines for clinical inte rpretation. In patients with unstable renal function, e.g. those with acute kidney injury, the eGFRmay not accurately reflect actual GFR.Glucose [Mass/Vol] 126 mg/wWIzlc22 - 99 mg/dLTrihealth Bethesda North HospitalComment on above:The [place] Diabetes Association (ADA) provides guidance for cutoff [...] Standards of Medical Care in Diabetes 2016, [place] Diabetes Association. Diabetes Care. 2016.39(Suppl 1). Interpretation and review of laboratory resultsAbnormalCleveland ClinicPotassium [Moles/Vol]5.4 mmol/LHigh3.7 - 5.1 mmol/LCleveland ClinicSodium [Moles/Vol]143 mmol/L136 - 144 mmol/LCleveland ClinicUrea nitrogen [Mass/Vol]27 mg/dLHigh9 - 24 mg/dLBarnesville Hospital W Auto Differential panel (Bld)on 43-38-4537Vcydpyoiq (Bld) [#/Vol]0.03 10*3/uLNINFTrihealth Bethesda North HospitalBasophils/100 WBC (Bld)0.9 %[facility] HospitalDifferential cell count method Nom (Bld)Auto [facility] HospitalEosinophils (Bld) [#/Vol]NINFCleveland Hutchinson Health HospitalEosinophils/100 WBC (Bld)0.3 %[facility] HospitalErythrocyte distribution width (RBC) [Ratio]13.3 % 11.5 - 15.0 %[facility] HospitalHematocrit (Bld) [Volume fraction]33.7 %Low39.0 - 51.0 %[facility] HospitalHemoglobin (Bld) [Mass/Vol]10.8 g/dLLow13.0 - 17.0 g/dL [facility] HospitalImmature granulocytes (Bld) [#/Vol]0.08 10*3/uLNINFTrihealth Bethesda North HospitalImmature granulocytes/100 WBC (Bld)2.5 %[facility] HospitalInterpretation and review of laboratory resultsAbnormalCcity hospital ClinicLymphocytes (Bld) [#/Vol] 1.40 10*3/uLTrihealth Bethesda North HospitalLymphocytes/100 WBC (Bld)43.2 %[facility]inity Health SystemH (RBC) [Entitic mass]30.8 pg26.0 - 34.0 pgClevelNorth Shore HealthHC (RBC) [Mass/Vol] 32.0 g/dL30.5 - 36.0 g/dLTrihealth Bethesda North HospitalMCV (RBC) [Entitic vol]96.0 fL80.0 - 100.0 fLCcity hospital ClinicMonocytes (Bld) [#/Vol]0.23 10*3/NIWexner Medical Center Monocytes/100 WBC (Bld)7.1 %[facility] HospitalNeutrophils (Bld) [#/Vol]1.49 10*3/uLTrihealth Bethesda North HospitalNeutrophils/100 WBC (Bld)46.0 %[facility] HospitalNucleated RBC (Bld) [#/Vol]NINFCleveland Hutchinson Health HospitalNucleated RBC/100 WBC (Bld) [Ratio]0.0 % /100 WBCTrihealth Bethesda North HospitalPlatelet mean volume (Bld) [Entitic vol]10.4 fL9.0 - 12.7 fLCcity hospital ClinicPlatelets (Bld) [#/Vol]146 10*3/[facility] Comment on above:No clot detected.Results checked and verified.RBC (Bld) [#/Vol] 3.51 10*6/uLLow4.20 - 6.00 m/[facility]. Anthony's HospitalWBC (Bld) [#/Vol]3.24 10*3/uLLow [facility] CenterBasic metabolic 2000 panelOrdered By: Mukesh Donohue on 74-08-8962Kpqne gap [Moles/Vol]7 mmol/LLow8 - 15 mmol/LCleveland [facility] Hospital Calcium [Mass/Vol]9.6 mg/dL8.5 - 10.2 mg/dLTrihealth Bethesda North HospitalChloride [Moles/Vol] 104 mmol/L98 - 107 mmol/LCleveland ClinicCO2 [Moles/Vol]26 mmol/L22 - 30 mmol/L [facility] HospitalCreatinine [Mass/Vol]1.12 mg/dL0.73 - 1.22 mg/dLTrihealth Bethes[facility] Hospital GFR/1.73 sq M.predicted among non-blacks MDRD (S/P/Bld) [Vol rate/Area]67 mL/min/{1.73_m2}- PINMercy Health St. Anne HospitalComment on above:Estimated Glomerular Filtration Rate (eGFR) is calculated using the 2020 CKD-EPI creatinine equation. This equation utilizes serum creatinine, sex, and age as parameters. The creatinine assay has traceable calibration to isotope dilution-mass spectrometry. Refer to KDIGO guidelines for clinical interpretation. In patients with unstable renal function, e.g. those with acute kidney injury, the eGFRmay not accurately reflect actual GFR.Glucose [Mass/Vol]138 mg/wQLofs88 - 99 mg/dL [facility] HospitalComment on above:The [place] Diabetes Association (ADA) provides guidance for cutoff values for fasting glucose andrandom glucose. The ADA defines fasting as no caloric intake for at least 8 hours. Fasting plasma gl ucose results between 100 to 125 mg/dL indicate [...] Standards of Medical Care in Diabetes 2016, [place] Diabetes Association. Diabetes Care. 2016.39(Suppl 1). Interpretation and review of laboratory resultsAbnormalCleveland ClinicPotassium [Moles/Vol]4.8 mmol/L3.7 - 5.1 mmol/LCleveland ClinicSodium [Moles/Vol]137 mmol/L136 - 144 mmol/LCleveland ClinicUrea nitrogen [Mass/Vol]26 mg/dLHigh9 - 24 mg/dLBarnesville Hospital W Auto Differential panel (Bld)on 92-79-4654Eiotougty (Bld) [#/Vol]NINFCleveland ClinicBasophils/100 WBC (Bld)0.3 %[facility] HospitalDifferential cell count method Nom (Bld)AutoCleveland Clinic Eosinophils (Bld) [#/Vol]0.04 10*3/uLNINFTrihealth Bethesda North HospitalEosinophils/100 WBC (Bld)1.1 %[facility] HospitalErythrocyte distribution width (RBC) [Ratio]13.3 %11.5 - 15.0 %[facility] HospitalHematocrit (Bld) [Volume fraction]34.2 %Low39.0 - 51.0 %[facility] HospitalHemoglobin (Bld) [Mass/Vol]11.1 g/dLLow13.0 - 17.0 g/dL [facility] HospitalImmature granulocytes (Bld) [#/Vol]NINFCLancaster Municipal HospitalImmature granulocytes/100 WBC (Bld)0.6 %[facility] HospitalInterpretation and review of laboratory resultsAbnormalClevelst. luke's hospital ClinicLymphocytes (Bld) [#/Vol]1.26 10*3/uL [facility] HospitalLymphocytes/100 WBC (Bld)34.7 %[facility] Health SystemH (RBC) [Entitic mass]30.8 pg26.0 - 34.0 pgClevelNorth Shore HealthHC (RBC) [Mass/Vol]32.5 g/dL30.5 - 36.0 g/dLTrinity Health SystemV (RBC) [Entitic vol]95.0 fL80.0 - 100.0 fLClevelst. luke's hospital ClinicMonocytes (Bld) [#/Vol]0.45 10*3/uLNINFTrihealth Bethesda North Hospital Monocytes/100 WBC (Bld)12.4 %[facility] HospitalNeutrophils (Bld) [#/Vol]1.85 10*3/uLTrihealth Bethesda North HospitalNeutrophils/100 WBC (Bld)50.9 %[facility] HospitalNucleated RBC (Bld) [#/Vol]NINFCLancaster Municipal HospitalNucleated RBC/100 WBC (Bld) [Ratio]0.0 % /100 WBCTrihealth Bethesda North HospitalPlatelet mean volume (Bld) [Entitic vol]9.7 fL9.0 - 12.7 fLCLancaster Municipal HospitalPlatelets (Bld) [#/Vol]297 10*3/uLTrihealth Bethesda North HospitalRBC (Bld) [#/Vol]3.60 10*6/uLLow4.20 - 6.00 m/[facility] Anthony's HospitalWBC (Bld) [#/Vol]3.63 10*3/uLLakeHealth Beachwood Medical Center ClinicPET+CT Guidance for localization of tumor of Skull base to mid-thigh-- W 18F-FDG Anand 05-65-8783MRJYHYICOL: HEAD/NECK: * No FDG avid neoplastic process. [...] any questions regarding this interpretation, please call [phone]. If you are unable to reach us at the number above, please feel free to contact [facility] [place] at [phone].DIVISION OF RADIOLOGY* * *Final Report* * * DATE OF [...] * Radiopharmaceutical Dose: 10.7 mCi * Radiopharmaceutical: L71-Hdkxgiinbakwfqbjpj (FDG) COMPARISON: No previous FDG PET/CT available CORRELATION: CT Urogram 01/25/2024 RESULT: REFERENCES: SUV reference values: * Blood pool (descending aorta) activity: SUVmax 3.0 * Background liver activity: SUVmax 3.3 Audiovisual Librarian (topogram) images: No significant findings. Notes and limitations: * Standardized uptake values indicate the highest activity concentration (SUVmax) at a given location but can be variable and are not absolute. * Physiologic/non-neoplastic uptake is common in the brain, extraocular [...] linear scars, compatible w (more content not included)...DIVISION OF RADIOLOGYProvider, [facility] [place] - 10/22/2023 * * *Final Report* * [...] * Radiopharmaceutical Dose: 10.7 mCi * Radiopharmaceutical: X11-Mvquzelrbsljmtpnhn (FDG) COMPARISON: No previous FDG PET/CT available CORRELATION: CT Urogram 01/25/2024 RESULT: REFERENCES: SUV reference values: * Blood pool (descending aorta) activity: SUVmax 3.0 * Background liver activity: SUVmax 3.3 Audiovisual Librarian (topogram) images: No significant findings. Notes and limitations: * Standardized uptake values indicate the highest activity concentration (SUVmax) at a given location but can be variable and are not absolute. * Physiologic/non-neoplastic uptake is common in the brain, extraocular [...] uptake associated with linear (more content not included)...[facility] HospitalPET+CT Guidance for localization of tumor of Skull base to mid-thigh-- W 18F-FDG IVOrdered By: [facility] Provider on 36-81-8152Wgbjqzrxb ClinicGLUCOSE, BLOOD (POC)on 72-19-9634Ofajaaf [Mass/Vol]102 mg/rAGgapgxjr05 - 99 mg/dLTrihealth Bethesda North HospitalComment on above:Location:[facility], [address] [place] [address] , [place], [place], [facility] The Accu-Chek Inform II glucose meter has [...] above situations. Interpretation and review of laboratory resultsAbnormalCMercy Health St. Charles HospitalPET+CT Guidance for localization of tumor of Skull base to mid-thigh-- W 18F-FDG Anand 80-32-3977Ryqejfswf Study observation (narrative)[facility] Operative Reporton 40-64-2388Lsqheokuy Report [id number]#1.00TIFOur Lady of Mercy Hospital - AndersonPathology Noteon 43-21-5539Eucgutrcw Note [id number]#1.00TIFOur Lady of Mercy Hospital - AndersonCT Kidney WO and W contrast Anand 94-90-2989WKSRAYWBKR: 1. 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 Elementary Librarian: PSCB Transcribe Date/Time: Sep 03 2023 2:47P Dictated by : CLINT LATHAM MD This examination was interpreted and the report reviewed and electronically signed by: CLINT LATHAM MD on Sep 03 2023 3:08PM [facility] DIVISION OF RADIOLOGY* * *Final Report* * * DATE OF EXAM: Sep 03 2023 2:09PM [facility] 0560 - CT UROGRAM WO/W IVCON [...] Localizer images: No additional findings. DIVISION OF RADIOLOGYProvider, [facility] [place] - 09/03/2023 * * *Final Report* * * DATE OF EXAM: Sep 03 2023 2:09PM [facility] 0560 - CT UROGRAM WO/W IVCON [...] No upper tract urothelial filling defects detected. Elementary Librarian: PSCB Transcribe Date/Time: Sep 03 2023 2:47P Dictated by : CLINT LATHAM MD This examination was interpreted and the report reviewed and electronically signed by: CLINT LATHAM MD on Sep 03 2023 3:08PM EST [facility] HospitalRadiology Study observation (narrative)[facility] Kidney WO and W contrast IVOrdered By: Ccf Provider on 05-51-9088Vhhoiwujj Clinic Consultation Noteon 20-93-6956Vanarbsbgeqa Note [id number]#1.00TIFFNormalFisher Medstar Harbor HospitalUroVysion Fish and Urine Cyto ([facility])on 79-40-8722RKYLTL & UCDiagnosis InfoInvalid Interpretation CodeFisher Medstar Harbor HospitalComment on above: Result Comment: A:Urine,Urine:Bladder Wash Diagnosis Summary - Atypical squamous cells [...] consistent with urothelial carcinoma. Less likely diagnosis includesother type of carcinoma or metastatic carcinoma involving genitourinary tract. These findings should be correlated with cytology and cystoscopy results.* CPT: 52713, 12059 Microscopic Notes - Microscopic Notes - Abnormal cells 9p21 deletions: Abnormal cells aneploid events: 25 Total cells analyzed: 125 Hematuria: Gross Description Site ID:A color Yellow fixative Alcohol Received 90 mls of clear yellow fluid with the patient's name and, Urine on the vial. Electronically signed by : on: 08/07/2023 20:09:56Performed By: #### [id number] #### [facility] [address] [place], [place] [address]Dozfdxr for Procedure/Surgeryon [id number] for Procedure/[id number] [facility] HospitalAmbulatory Visit Summaryon [id number] Visit Summary JOLLY SIERRA :1945 Visit Date:08/01/2023 [...] Where: [facility] [address] , [place] [address]- Medications What How Much When Instructions Unchanged [...] to remove urine from the bladder by placinga small, flexible tube (catheter) into the bladder though the urethra. The urethra is a tube in thebody that carries urine from the bladder out [...] also help you to get the home caresupplies that are needed for this procedure. Supplies [...] of times per day to perform CIC: To perform CIC, follow these steps: 1. Wash your hands with soap and water. If soap and water are not available, use hand car stower. 2. Clean your penis with soap and [...] pointing to the ceiling. You may wish toplace a waterproof mat or pad under you. [...] of your penis wi (more content not included)...[facility] Summary JOLLY SIERRA :1945 Visit Date:08/01/2023 [...] Schedule the Following Appointments Follow Up with Antonio GARY MD, URL When: Where: [facility] [address] , [place] [address]- Medications What How Much When Instructions Unchanged [...] to remove urine from the bladder by placinga small, flexible tube (catheter) into the bladder though the urethra. The urethra is a tube in thebody that carries urine from the bladder out [...] also help you to get the home caresupplies that are needed for this procedure. Supplies [...] of times per day to perform CIC: To perform CIC, follow these steps: 1. Wash your hands with soap and water. If soap and water are not available, use hand car stower. 2. Clean your penis with soap and [...] pointing to the ceiling. You may wish toplace a waterproof mat or pad under you. [...] of your penis wi (more content not included)...[facility] HospitalPatient Educationon 08-01-2023 Patient EducationUrology Clean Intermittent Catheterization, Male Clean intermittent catheterization (CIC) is a procedure to remove urine from the bladder by placinga small, flexible tube (catheter) into the bladder though the urethra. The urethra is a tube in thebody that carries urine from the bladder out [...] also help you to get the home caresupplies that are needed for this procedure. Supplies [...] of times per day to perform CIC: To perform CIC, follow these steps: 1. Wash your hands with soap and water. If soap and water are not available, use hand car stower. 2. Clean your penis with soap and [...] sterile swabs as told by your health careprovider. 11. Hold your penis upward at a 45?60 degree angle. This helps to straighten the urethra. 12. Slowly insert the lubricated catheter straight into your urethra until urine flows freely. Thisis usually about 6?8 inches (15?20 cm). 13. [...] catheter in a small bathroom. ? Take cfco-ayc-qctpdri and prescription medicines only as told by your he (more content not included)...NormalMer[facility] Health [facility] HospitalUroVysion Fish and Urine Cyto ([facility])on [id number] Method of ExtractionBladder WashNormal [facility] HospitalComment on above:Performed By: #### [id number] #### [facility] [address] [place] [id number] Number of Slhr8Eolgchf Interpretation Summa HealthComment on above:Performed By: #### [id number] #### [facility] [address] [place], [place] [address]NIOW SpecimenUrineNoWVUMedicine Harrison Community HospitalComment on above:Performed By: #### [id number] #### [facility] [address], [place] [address]ICLL Type of ServiceTechnical OnlyEast [place] Regional HospitalComment on above:Performed By: #### [id number] #### [facility] [address] [place], [place] [address]Veztwnh Office/Clinic Noteon [id number] Office/Clinic NoteChief Complaint Cysto HPI Staff Cysto ABX TAKEN [...] Antonio Villeda, URL [facility] [address] [place] [address]- Additional Instructions: refer to [facility], f/u after [...] virus vaccine, inactivated 02/01/2022 Recorded SARS-CoV-2 (COVID-19) mRNAMUL.ORD![id number] 02/01/2022 Recorded SARSCoV2 mRNA(yqrjppkqv-nslv-jbeawr) vac 08/22/2021 Recorded SARS-CoV-2 (COVID-19) mRNA BNT-162b2 vax 02/01/2021 Recorded influenza virus vaccine, inactivated 01/17/2021 Recorded SARS-CoV-2 (COVID-19) mRNA BNT-162b2 vax 06/28/2020 Recorded 2022-08-07: TPV75 SARS-CoV-2 (COVID-19) mRNA BNT-162b2 vax 06/07/2020 Recorded 2022-08-07: T (more content not included)...[facility] [place] [facility] HospitalComment on above:Result Comment: Electronically Signed By: Antonio GARY MD\.br\Date and Time Signed: 08/01/23 13:13 EDT\.br\Electronically Co-Signed By: Raquel Lizarraga\.br\Date and Time Co-Signed: 08/01/23 13:12 EDT Vital Signs Date TimeVital SignValuePerforming [id number] 09:32-0400Body mass index (BMI) [Ratio]28.71 kg/u1Javylads Swinehart [employer] Work Phone: [phone] CareGzstoowmrg62-26-5794 09:32-0400Body temperature 97.3 [degF]Tanesha Swinehart [employer] Work Phone: [phone] [place], [place] [address]Weacqavrut33-36-8860 09:32-0400Body rtosnr92.18 kgAshleigh Swinehart [employer] Work Phone: [phone]07[facility] CareDmhkavllgj60-01-9310 09:32-0400Diastolic blood rjrmlymj85 mm[Hg]Tanesha Swinehart [employer] Work Phone: [phone] CareKobxcuinvk98-63-0806 09:32-0400Heart rate67 /min Tanesha Swinehart [employer] Work Phone: [phone] CareWyjdpmfjga33-48-4248 09:32-8946SpL9% (BldA) [Mass fraction]97 %Tanesha Swinehart [employer] Work Phone: [phone] CareQivrzhqthf85-82-3872 09:32-0400Systolic blood zrvmapju836 mm[Hg]Tanesha Swinehart [employer] Work Phone: [phone]86[facility] CareErijhqzcuo85-18-1320 09:51-0400Body .3 cmAshleigh Swinehart [employer] Work Phone: [phone] CarePsqgggspvs55-57-3623 09:51-0400Body mass index (BMI) [Ratio]28.86 kg/g2SkjhqkdyTanesha Casiano [employer] Work Phone: [facility] CareNpkzueqvcm91-48-8807 09:51-0400Body temperature 97.3 [degF]Tanesha Casiano [employer] Work Phone: [facility] CareFpiamaehmv97-49-3445 09:51-0400Body raanif87.63 kgTanesha Casiano [employer] Work Phone: [facility] CareNpxyejagpa30-31-5572 09:51-0400Diastolic blood isyxjzae16 mm[Hg]Tanesha Casiano [employer] Work Phone: [facility] CareZeilwkmqyn50-94-5634 09:51-0400Heart rate81 /min Tanesha Casiano [employer] Work Phone: [facility] CareWjkgqfuhhe31-74-8717 09:51-0457MtN3% (BldA) [Mass fraction]96 %Tanesha Casiano [employer] Work Phone: [facility] CareVjdhqbxdqk15-54-3299 09:51-0400Systolic blood raibxsgx448 mm[Hg]Tanesha Casiano [employer] Work Phone: [facility] CareYytovpcqqn68-26-8427 09:53-0400Body saqnjb944.8 cmPaul Biedenbach DO Work Phone: [facility] CareVnzhmushku84-93-6397 09:53-0400Body mass index (BMI) [Ratio]26.54 kg/m2Paul Biedenbach DO Work Phone: [facility] CareNpglgoggiv08-52-0558 09:53-0400Body lqqgxu58.92 kgPaul Biedenbach DO Work Phone: [facility] CareRwnqimpwdm14-03-3903 10:56-0400Body hgntah848.8 cmPaul Biedenbach DO Work Phone: [facility] CareRfdquqhoih17-15-1858 10:56-0400Body mass index (BMI) [Ratio]26.54 kg/m2Paul Biedenbach DO Work Phone: [place] [address]Zwhszrncqx31-37-8752 10:56-0400Body emusaa67.92 kgPaul Bijosé luis DO Work Phone: [facility] CareXnkxajwein78-17-9419 14:50-0400Body qylnlr297.8 cmFaisal Dasilva MD Work Phone: [facility]05-08-2025 14:50-0400Body mass index (BMI) [Ratio]28.56 kg/h7OwhuiFaisal Dasilva MD Work Phone: [facility]05-08-2025 14:50-0400Body temperature 97.39 [degF]Faisal Dasilva MD Work Phone: [facility]05-08-2025 14:50-0400Body ytqslt31.3 kgFaisal Dasilva MD Work Phone: [facility]05-08-2025 14:50-0400Diastolic blood cgqdaygc09 mm[Hg]Faisal Dasilva MD Work Phone: [facility]05-08-2025 14:50-0400Heart rate60 /min Faisal Dasilva MD Work Phone: [facility]05-08-2025 14:50-0400Respiratory rate 16 /minFaisal Dasilva MD Work Phone: [facility]05-08-2025 14:50-7603XeU4% (BldA) [Mass fraction]99 %Faisal Dasilva MD Work Phone: [facility]05-08-2025 14:50-0400Systolic blood nocaizcp982 mm[Hg]Faisal Dasilva MD Work Phone: [facility]04-14-2025 09:44-0400Body .8 cmPaul Bijosé luis DO Work Phone: [facility] CareRhnvviyjsl92-89-1933 09:44-0400Body mass index (BMI) [Ratio]26.54 kg/m2Paul Bijosé luis DO Work Phone: [facility] CareWylxoihgvj53-32-1861 09:44-0400Body ggbaor55.92 kgPaul Biedenbach DO Work Phone: [facility] CareCkkncxufex02-77-2401 11:03-0400Body cddnef810.8 cmPaul Biedenbach DO Work Phone: [facility] CareEezpncrwsz00-91-5980 11:03-0400Body mass index (BMI) [Ratio]26.54 kg/m2Paul Biedenbach DO Work Phone: [facility] CareDpjiyanmyt48-54-7523 11:03-0400Body .92 kgPaul Biedenbach DO Work Phone: [facility] CareTlvzslglyj19-49-3086 14:45-0500Body lujiec851.8 cmFaisal Dasilva MD Work Phone: [facility]02-06-2025 14:45-0500Body mass index (BMI) [Ratio]26.95 kg/m4WdgnrFaisal Dasilva MD Work Phone: [facility]02-06-2025 14:45-0500Body temperature 97.2 [degF]Faisal Dasilva MD Work Phone: [facility]02-06-2025 14:45-0500Body .2 kgFaisal Dasilva MD Work Phone: [facility]02-06-2025 14:45-0500Diastolic blood dckpvkco20 mm[Hg]Faisal Dasilva MD Work Phone: [facility]02-06-2025 14:45-0500Heart rate70 /min Faisal Dasilva MD Work Phone: [facility]02-06-2025 14:45-0500Respiratory rate 16 /minFaisal Dasilva MD Work Phone: [facility]02-06-2025 14:45-5853XvO8% (BldA) [Mass fraction]97 %Faisal Dasilva MD Work Phone: [facility]02-06-2025 14:45-0500Systolic blood kfmzzxdi088 mm[Hg]Faisal Dasilav MD Work Phone: [facility]11-05-2024 14:44-0500Body mass index (BMI) [Ratio]26.95 kg/f7HopftFaisal Dasilva MD Work Phone: [facility]11-05-2024 14:44-0500Body temperature 97.11 [degF]Faisal Dasilva MD Work Phone: [place] [address]-05-2024 14:44-0500Body blaxbt46.2 kgFaisal Dasilva MD Work Phone: [place] [address]-05-2024 14:44-0500Diastolic blood tjvzgirs65 mm[Hg]Faisal Dasilva MD Work Phone: [facility]11-05-2024 14:44-0500Heart rate69 /min Faisal Dasilva MD Work Phone: [facility]11-05-2024 14:44-0500Respiratory rate 18 /minFaisal Dasilva MD Work Phone: [facility]11-05-2024 14:44-1360IyR7% (BldA) [Mass fraction]99 %Faisal Dasilva MD Work Phone: [facility]11-05-2024 14:44-0500Systolic blood dledtruv245 mm[Hg]Faisal Dasilva MD Work Phone: [facility]10-08-2024 09:30-0400Body .8 cmMindy Chantelle PA-C Work Phone: [facility]10-08-2024 09:30-0400Body mass index (BMI) [Ratio]26.86 kg/u6Tywbm Chantelle PA-C Work Phone: [facility]10-08-2024 09:30-0400Body temperature 97.7 [degF]Marlee Chantelle PA-C Work Phone: [facility]10-08-2024 09:30-0400Body eaqzhd70.9 kgMindy Chantelle PA-C Work Phone: [facility]10-08-2024 09:30-0400Diastolic blood ssqwyibe27 mm[Hg]Marlee Toroer PA-C Work Phone: [facility]10-08-2024 09:30-0400Heart rate62 /min Marlee Toroer PA-C Work Phone: [facility]10-08-2024 09:30-0400Respiratory rate 16 /minMarlee Toroer PA-C Work Phone: [facility]10-08-2024 09:30-4626XqC7% (BldA) [Mass fraction]100 %Marlee Toroer PA-C Work Phone: [facility]10-08-2024 09:30-0400Systolic blood hqygbxks909 mm[Hg]Marlee Toroer PA-C Work Phone: [facility]09-23-2024 14:20-0400Diastolic blood mm[Hg]Pacc 4 Work Phone: [facility]09-23-2024 14:20-0400Systolic blood grqravph975 mm[Hg]Pacc 4 Work Phone: [facility]09-23-2024 13:27-0400Body epfusd091.8 cmPacc 4 Work Phone: [phone]09-23-2024 13:27-0400Body mass index (BMI) [Ratio]27.14 kg/m2Pacc 4 Work Phone: [phone] [address]-23-2024 13:27-0400Body temperature 97.3 [degF]Pacc 4 Work Phone: [phone] [address]-23-2024 13:27-0400Body dtilbg50.8 kgPacc 4 Work Phone: [phone] [address]-23-2024 13:27-0400Heart rate83 /min Pacc 4 Work Phone: [phone] [address]-23-2024 13:27-0400Respiratory rate 16 /minPacc 4 Work Phone: [facility]09-23-2024 13:27-1727RqY6% (BldA) [Mass fraction]100 %Pacc 4 Work Phone: [facility]09-10-2024 10:00-0400Body temperature 98.4 [degF]Chair Adriano Work Phone: [facility]09-10-2024 10:00-0400Diastolic blood mm[Hg]Chair Adriano Work Phone: [facility]09-10-2024 10:00-0400Heart rate68 /min Chair Adriano Work Phone: [facility]09-10-2024 10:00-0400Respiratory rate 16 /minChair Adriano Work Phone: [facility]09-10-2024 10:00-7436MqR5% (BldA) [Mass fraction]100 %Chair Adriano Work Phone: [facility]09-10-2024 10:00-0400Systolic blood uptmxuio904 mm[Hg]Chair Adriano Work Phone: [facility]09-03-2024 08:55-0400Body stzbig686.5 cmFaisal Dasilva MD Work Phone: [facility]09-03-2024 08:55-0400Body mass index (BMI) [Ratio]28.01 kg/q1KtfuuFaisal Dasilva MD Work Phone: [facility]09-03-2024 08:55-0400Body temperature 97.7 [degF]Faisal Dasilva MD Work Phone: [facility]09-03-2024 08:55-0400Body .3 kgFaisal Dasilva MD Work Phone: [facility]09-03-2024 08:55-0400Diastolic blood xzqphzse47 mm[Hg]Faisal Dasilva MD Work Phone: [facility]09-03-2024 08:55-0400Heart rate83 /min Faisal Dasilva MD Work Phone: [facility]09-03-2024 08:55-0400Respiratory rate 16 /minFaisal Dasilva MD Work Phone: [facility]09-03-2024 08:55-8659PwZ3% (BldA) [Mass fraction]98 %Faisal Dasilva MD Work Phone: [facility]09-03-2024 08:55-0400Systolic blood dzetmhci399 mm[Hg]Faisal Dasilva MD Work Phone: [facility]08-19-2024 10:12-0400Body mass index (BMI) [Ratio]28.11 kg/g2QrsfmFaisal Dasilva MD Work Phone: [facility]08-19-2024 10:12-0400Body temperature 97.2 [degF]Faisal Dasilva MD Work Phone: [facility]08-19-2024 10:12-0400Body ehtxwg20.6 kgFaisal Dasilva MD Work Phone: [facility]08-19-2024 10:12-0400Diastolic blood uanfitps37 mm[Hg]Faisal Dasilva MD Work Phone: [facility]08-19-2024 10:12-0400Heart rate84 /min Faisal Dasilva MD Work Phone: [facility]08-19-2024 10:12-0400Respiratory rate 18 /minFaisal Dasilva MD Work Phone: [facility]08-19-2024 10:12-3232JsS5% (BldA) [Mass fraction]97 %Faisal Dasilva MD Work Phone: [facility]08-19-2024 10:12-0400Systolic blood qsdeqpls520 mm[Hg]Faisal Dasilva MD Work Phone: [facility]08-12-2024 10:130400Body lfrehk652.5 cmMindy Chantelle PA-C Work Phone: [facility]08-12-2024 10:130400Body mass index (BMI) [Ratio]28.11 kg/m9Qphbd Chantelle PA-C Work Phone: [facility]08-12-2024 10:13040Body temperature 97.2 [degF]Marlee Chantelle PA-C Work Phone: [facility]08-12-2024 10:040Body tnmtse98.6 kgMinthierry Chantelle PA-C Work Phone: [facility]08-12-2024 10:130400Diastolic blood bykrtekf03 mm[Hg]Marlee Chantelle PA-C Work Phone: [facility]08-12-2024 10:130400Heart rate88 /min Marlee Chantelle PA-C Work Phone: [facility]08-12-2024 10:040Respiratory rate 16 /minMindy Chantelle PA-C Work Phone: [facility]08-12-2024 10:134135WyU0% (BldA) [Mass fraction]97 %Marlee Chantelle PA-C Work Phone: [facility]08-12-2024 10:130400Systolic blood vcgufgjf608 mm[Hg]Marlee Chantelle PA-C Work Phone: [facility]07-22-2024 09:56-0400Body shvhum879.5 cmFaisal Dasilva MD Work Phone: [facility]07-22-2024 09:56-0400Body mass index (BMI) [Ratio]28.34 kg/s4HkgpcFaisal Dasilva MD Work Phone: [facility]07-22-2024 09:56-0400Body temperature 97.59 [degF]Faisal Dasilva MD Work Phone: [facility]07-22-2024 09:56-0400Body iafadc87.3 kgFaisal Dasilva MD Work Phone: [facility]07-22-2024 09:56-0400Diastolic blood erafvtgy14 mm[Hg]Faisal Dasilva MD Work Phone: [facility]07-22-2024 09:56-0400Heart rate70 /min Faisal Dasilva MD Work Phone: [facility]07-22-2024 09:56-0400Respiratory rate 18 /minFaisal Dasilva MD Work Phone: [facility]07-22-2024 09:56-2335XdU2% (BldA) [Mass fraction]99 %Faisal Dasilva MD Work Phone: [facility]07-22-2024 09:56-0400Systolic blood vqmugwdu486 mm[Hg]Faisal Dasilva MD Work Phone: [facility]07-08-2024 09:03-0400Body mass index (BMI) [Ratio]27.75 kg/x5JqmwkFaisal Dasilva MD Work Phone: [facility]07-08-2024 09:03-0400Body temperature 97.2 [degF]Faisal Dasilva MD Work Phone: [facility]07-08-2024 09:03-0400Body pytmep77.5 kgFaisal Dasilva MD Work Phone: [facility]07-08-2024 09:03-0400Diastolic blood cyhvhrng88 mm[Hg]Faisal Dasilva MD Work Phone: [facility]07-08-2024 09:03-0400Heart rate73 /min Faisal Dasilva MD Work Phone: [facility]07-08-2024 09:03-0400Respiratory rate 18 /minFaisal Dasilva MD Work Phone: [facility]07-08-2024 09:03-4273QiW6% (BldA) [Mass fraction]100 %Faisal Dasilva MD Work Phone: [facility]07-08-2024 09:03-0400Systolic blood wnrvhgra130 mm[Hg]Faisal Dasilva MD Work Phone: [facility]07-01-2024 10:56-0400Body .5 cmMindy Chantelle PA-C Work Phone: [facility] HospitalComment on above:verified by 2 caregivers with fjkby30-64-7017 10:56-0400Body mass index (BMI) [Ratio]28.37 kg/d1Brlcu Chantelle PA-C Work Phone: [facility]07-01-2024 10:56-0400Body temperature 97.11 [degF]Marlee Chantelle PA-C Work Phone: [facility]07-01-2024 10:56-0400Body drpult75.4 kgMindy Chantelle PA-C Work Phone: [facility]07-01-2024 10:56-0400Diastolic blood erudavns95 mm[Hg]Marlee Chantelle PA-C Work Phone: [facility]07-01-2024 10:56-0400Heart rate62 /min Marlee Chantelle PA-C Work Phone: [facility]07-01-2024 10:56-0400Respiratory rate 16 /minMindy Chantelle PA-C Work Phone: [facility]07-01-2024 10:56-6222JtS1% (BldA) [Mass fraction]98 %Marlee Chantelle PA-C Work Phone: [facility]07-01-2024 10:56-0400Systolic blood zfdyunyw529 mm[Hg]Marlee Chantelle PA-C Work Phone: [facility]06-17-2024 10:31-0400Body uwfddd705.8 cmFaisal Dasilva MD Work Phone: [facility]06-17-2024 10:31-0400Body mass index (BMI) [Ratio]27.11 kg/k2JrjihFaisal Dasilva MD Work Phone: [facility]06-17-2024 10:310400Body temperature 97.11 [degF]Faisal Dasilva MD Work Phone: [facility]06-17-2024 10:310Body xqynwc80.7 kgFaisal Dasilva MD Work Phone: [facility]06-17-2024 10:31-0400Diastolic blood gugbjlcy77 mm[Hg]Faisal Dasilva MD Work Phone: [facility]06-17-2024 10:31-0400Heart rate82 /min Faisal Dasilva MD Work Phone: [facility]06-17-2024 10:31Respiratory rate 18 /minFaisal Dasilva MD Work Phone: [facility]06-17-2024 10:311528GhK2% (BldA) [Mass fraction]99 %Faisal Dasilva MD Work Phone: [facility]06-17-2024 10:310Systolic blood prgtmwua162 mm[Hg]Faisal Dasilva MD Work Phone: [facility]05-23-2024 10:14Body qsseju072.8 cmFaisal Dasilva MD Work Phone: [facility]05-23-2024 10:14-0400Body mass index (BMI) [Ratio]27.9 kg/b5DuxvjFaisal Dasilva MD Work Phone: [facility]05-23-2024 10:14040Body temperature 97.39 [degF]Faisal Dasilva MD Work Phone: [facility]05-23-2024 10:14040Body rrrhig80.2 kgFaisal Dasilva MD Work Phone: [facility]05-23-2024 10:14-0400Diastolic blood bcoughjk49 mm[Hg]Faisal Dasilva MD Work Phone: [facility]05-23-2024 10:14-0400Heart rate76 /min Faisal Dsailva MD Work Phone: [facility]05-23-2024 10:14-0400Respiratory rate 16 /minFaisal Dasilva MD Work Phone: [facility]05-23-2024 10:14-7718HwA4% (BldA) [Mass fraction]99 %Faisal Dasilva MD Work Phone: [facility]05-23-2024 10:14-0400Systolic blood zbshxylb400 mm[Hg]Faisal Dasilva MD Work Phone: [facility]05-17-2024 08:41-0400Diastolic blood aqmbhtka50 mm[Hg]Nurse [employer] Work Phone: [facility]05-17-2024 08:41-0400Heart rate81 /min [employer] Work Phone: [phone]05-17-2024 08:41-0400Systolic blood zvtjibsc843 mm[Hg]Nurse [employer] Work Phone: [phone]04-23-2024 12:03-0400Diastolic blood mm[Hg]Pacc 1 Work Phone: [phone]04-23-2024 12:03-0400Systolic blood bfdpuywc596 mm[Hg]Pacc 1 Work Phone: [phone] [address]-23-2024 11:49-0400Body .8 cmPacc 1 Work Phone: [phone] [address]-23-2024 11:49-0400Body mass index (BMI) [Ratio]28.47 kg/m2Pacc 1 Work Phone: [phone] [address]-23-2024 11:49-0400Body temperature 97.7 [degF]Pacc 1 Work Phone: [phone] [address]-23-2024 11:49-0400Body mogmmz57 kg Pacc 1 Work Phone: [facility]04-23-2024 11:49-0400Heart rate65 /min Pacc 1 Work Phone: [facility]04-23-2024 11:49-0400Respiratory rate 16 /minPacc 1 Work Phone: [facility]04-23-2024 11:49-8647JeL0% (BldA) [Mass fraction]99 %Pacc 1 Work Phone: [place] [address]-19-2024 14:12-0400Diastolic blood gjoxwnyd49 mm[Hg]Jason Will MD Work Phone: [place] [address]-19-2024 14:12-0400Heart rate72 /min Jason Will MD Work Phone: [place] [address]-19-2024 14:12-0400Systolic blood nrvwksaf346 mm[Hg]Jason Will MD Work Phone: [facility]03-27-2024 12:32-0400Blood Pressure LocationPatrick GARY [facility]03-27-2024 12:32-0400Diastolic blood mm[Hg]Antonio GARY [facility]03-27-2024 12:32-0400Heart rate64 /minPatrick GARY [facility] [place] [address]-27-2024 12:32-0400Systolic blood [id number] mm[Hg]Antonio GARY [facility]04-03-2023 08:46-0400Blood Pressure LocationPatrick GARY [facility]04-03-2023 08:46-0400Diastolic blood [id number] mm[Hg]Antonio GARY [facility]04-03-2023 08:46-0400Heart rate72 /minPatrick GARY [facility]04-03-2023 08:46-0400Respiratory rate16 /minPatrick GARY [facility] Campus04-03-2023 08:46-0400Systolic blood mm[Hg]Antonio GARY [facility] Encounters Encounter DateEncounter TypeCare ProviderFacilityStart: 02-27-2025 End: 41-44-7851xxoqbepxzdQZXFC ALAMIRIFacility:[facility] Centertart: 02-11-2025 End: 89-56-0541Zdgkbvrqm encounterCristina Kerr MD Work Phone: [facility] MedicineStart: 02-05-2025 End: 04-59-9077Ftntkj flowsheetTanesha Lamhart LIQUID CENTER ASSEMBLER Work Phone: [facility] MedicineStart: 02-05-2025 End: 44-14-8895Nuvclo flowsheetTanesha Lamhart LIQUID CENTER ASSEMBLER Work Phone: [facility] MedicineStart: 02-05-2025 End: 28-62-0730Wjfvqtw encounter procedureTanesha Casiano LIQUID CENTER ASSEMBLER Work Phone: [facility] Family MedicineComment on above:Wellness examination (Primary Dx); Mixed hyperlipidemia; Prediabetes; Chronic heart failure, unspecified heart failure type (HCC); Primary hypertensionStart: 02-05-2025 End: 11-08-4765Vtakpws encounter statusTanesha Casiano LIQUID CENTER ASSEMBLER Work Phone: [facility] HealthcareStart: 02-05-2025 End: 95-56-2447eqwoqsnioaUKEWXRSS SWINEHARTNot AvailableStart: 01-08-2025 End: 11-47-4164hvxrowzyysBSSDPDHT SWINEHARTFacility:[facility] Start: 01-08-2025 End: 39-08-0376Arfszw flowsheetTanesha Swinehart LIQUID CENTER ASSEMBLER Work Phone: NOCh[facility] Hospitalt [facility] MedicineStart: 01-08-2025 End: 62-98-9959Vrcrre flowsheetTanesha Swinehart LIQUID CENTER ASSEMBLER Work Phone: noRI [facility] MedicineStart: 01-08-2025 End: 73-35-7977Ihdfxk outpatient new 45 minutesAshradha Lamhart LIQUID CENTER ASSEMBLER Work Phone: [facility] MedicineComment on above:Heart failure, unspecified (HCC) (Primary Dx); Primary hypertension ; Malignant neoplasm of urinary bladder, unspecified site (HCC); Stage 3b chronic kidney disease (CMS-HCC); Hyperlipidemia, unspecified hyperlipidemia type ; Multiple thyroid nodules ; Agent orange exposureStart: 01-08-2025 End: 76-40-0004bhzqogkddaKFPGZABA SWINEHARTNot AvailableStart: 01-01-2025 End: 03-72-1770Qwianwwiw encounterJose Martin Hillman APRN.TRANSITION MANAGER Work Phone: [facility]Bo[facility] LaboratoryComment on above:Lab OrdersStart: 12-15-2024 End: 23-10-9380Zayzetapb Marcos Capellan RN Work Phone: Hematology/OncologyComment on above:Care Coordination (Clinical update)Start: 12-11-2024 End: 70-93-6079atguopsolwXMWQI MARTINEZFacility:[facility] Centertart: 12-01-2024 End: 01-18-5577Rgwrtb Marcelo Newman DO Work Phone: NORI Adriano OtolaryngologyStart: 12-01-2024 End: 41-79-4433Uwbznt flowsheetPaul S Biedenbach DO Work Phone: noMS Adriano OtolaryngologyStart: 12-01-2024 End: 39-86-6380Qdvrhsajn encounterHolly Jerman MIGUEL Work Phone: Hematology/OncologyComment on above:Lab OrdersStart: 12-01-2024 End: 98-20-8629Keycup outpatient visit 15 minutesPaul S Biedenbach DO Work Phone: noms Adriano OtolaryngologyComment on above:Nontoxic multinodular goiter (Primary Dx); Thyroid noduleStart: 12-01-2024 End: 32-50-5801mmxjjwuwsrLHGE S BIEDENBACHNot AvailableStart: 11-25-2024 End: 13-58-6205Jrysyctly encounterRobert Suman NORWOOD Work Phone: UrologyComment on above:Appointment ConfirmationStart: 11-17-2024 End: 03-80-1425Hvjyjh flowsheetPaul S Biedenbach DO Work Phone: noms ENT SANDUSKYStart: 11-17-2024 End: 19-93-6076Bifdgn flowsheetPaul S Biedenbach DO Work Phone: noms ENT SANDUSKYStart: 11-17-2024 End: 68-45-0180Knklsoau ReferredPaul S Biedenbach DO-Lab [facility] [place] Work Phone: Start: 11-17-2024 End: 36-22-2825Fsnwjw outpatient visit 25 minutesPaul S Biedenbach DO Work Phone: noms ENT SANDUSKYComment on above:Nontoxic multinodular goiter (Primary Dx); Thyroid noduleStart: 11-17-2024 End: 54-70-3754rbzgtkecobAcnp Biedjosé miguelMarietta Osteopathic Clinic Work Phone: Start: 23-18-2979jujmvhspvrRFOTOKUAudra DONALDSON JR Facility:[facility]tart: 10-28-2024 End: 45-20-3019Ifrwwamplj hospital visit by physicianCt [facility] ([facility]) Work Phone: [facility] Radiology CT ScanComment on above: 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) [C67.2]Start: 09-11-2024 End: 78-87-0499Zvncsiu encounter procedureFaisal Dasilva MD Work Phone: Hematology/OncologyStart: 09-11-2024 End: 35-86-5803bhrbqaquwdJdoyi R Murphy MD Work Phone: Hematology/OncologyComment on above:Malignant neoplasm of overlapping sites of bladder (HCC) (Primary Dx); Neurogenic bladder; Thyroid noduleStart: 09-02-2024 End: 63-29-4706Dsfwvzhtd encounterAmy Penn RNUrologyComment on above: AntibioticStart: 08-28-2024 End: 55-50-0678gpoqxtscxmVJUOSA ABOUASSALYFacility:[facility] HospitalStart: 08-18-2024 End: 02-65-2827Csbzsa flowsheetPaul S Biedenbach DO Work Phone: noms ENT SANDUSKYStart: 08-18-2024 End: 01-68-4638Yrrxei flowsheetPaul S Biedenbach DO Work Phone: noms ENT SANDUSKYStart: 08-18-2024 End: 20-27-1101Kxqnmm outpatient visit 15 minutesPaul S Biedenbach DO Work Phone: noms ENT SANDUSKYComment on above:Nontoxic multinodular goiter (CMS/HCC) (Primary Dx); Thyroid nodule (CMS/HCC)Start: 08-18-2024 End: 89-09-0394vfmtmubiovQRVB S BIEDENBACHNot AvailableStart: 08-13-2024 End: 05-60-4225Cahtagslx encounterRobert Suman NORWOOD Work Phone: UrologyComment on above:rescheduled appointmentStart: 08-04-2024 End: 88-76-6742Kkvere flowsheetPaul S Biedenbach DO Work Phone: noms ENT SANDUSKYStart: 08-04-2024 End: 80-73-1955Thkdxp flowsheetPaul S Biedenbach DO Work Phone: noms ENT SANDUSKYStart: 08-04-2024 End: 81-78-7348Fswvfzat ReferredPHYSICIAN NO [facility] [place] Work Phone: Start: 08-04-2024 End: 05-61-1741Yuazpj outpatient visit 25 minutesPaul S Biedenbach DO Work Phone: noms ENT SANDUSKYComment on above:Nontoxic multinodular goiter (CMS/HCC) (Primary Dx); Thyroid nodule (CMS/HCC); Thyroid dysfunction (CMS/HCC)Start: 08-04-2024 End: 38-34-0838culqeqzcfvYBQZBRZQX NO [facility] Work Phone: Start: 07-14-2024 End: 43-72-0153Tlplqhoq Result EncounterPaul S Biedenbach DO Work Phone: noms External Department UnsolicitedStart: 07-14-2024 End: 94-45-7330Nnfyutwz Result EncounterPaul S Biedenbach DO Work Phone: noms External Department UnsolicitedStart: 07-14-2024 End: 91-57-7278Jdfeequ encounter procedurePHYSICIAN NO [facility] [place] Work Phone: Start: 07-14-2024 End: 82-14-0005kiyrwiugidVWPGJIPUH NO [facility] Work Phone: Start: 06-19-2024 End: 14-64-0129Fjfeofjgw encounterDonald Perez RN Work Phone: Hematology/OncologyComment on above:Care Coordination (Thyroid US)Start: 06-12-2024 End: 57-32-1259fgjzjkxnndFASLXCOMalcolm DONALDSON JRFacility:[facility] Centertart: 06-12-2024 End: 04-98-7163Pypoyd outpatient visit 25 minutesFaisal Dasilva MD Work Phone: Hematology/OncologyComment on above:Malignant neoplasm of overlapping sites of bladder (HCC) (Primary Dx); Abnormal imaging of thyroidStart: 06-04-2024 End: 24-41-8674ynushxnhrcDTKJBDO LEWIS VALONE JRFacility:[facility] Centertart: 06-04-2024 End: 29-92-7980Kcwirhdoif hospital visit by physicianArrival Time Radiology Work Phone: Radiology Pet CTComment on above:Malignant neoplasm of overlapping sites of bladder (HCC) [C67.8]Start: 04-28-2024 End: 15-74-8509Deabfdmvx encounterFaisal Dasilva MD Work Phone: Hematology/OncologyComment on above:OrdersStart: 03-12-2024 End: 44-12-7539Hufezrurp encounterLizzie Perez RNHematology/OncologyStart: 03-11-2024 End: 85-95-9521Tkumqw outpatient visit 15 minutesFaisal Dasilva MD Work Phone: Hematology/OncologyComment on above:Malignant neoplasm of overlapping sites of bladder (HCC) (Primary Dx); Neurogenic bladderStart: 02-19-2024 End: 52-41-8051Bjzhigptp encounterMahi Hansen RNUrologyComment on above: Surgical FollowupResultsStart: 02-18-2024 End: 37-13-1319wpoiekzwchWTWNGE ABOUASSALYFacility:[facility] Hospitaltart: 02-12-2024 End: 72-13-6434Nlhlpx outpatient visit 15 minutesMarlee Lockhart PA-C Work Phone: Hematology/OncologyComment on above:Malignant neoplasm of overlapping sites of bladder (HCC) (Primary Dx)Start: 02-11-2024 End: 58-27-9101Ueconjmio encounterAmy Penn RNUrologyComment on above:Pre-Op TeachingStart: 02-07-2024 End: 02-77-0940Elqvlegop encounterFaisal Dasilva MD Work Phone: Hematology/OncologyComment on above:Lab OrdersStart: 01-29-2024 End: 47-20-5653Nzfzvpioj encounterSprasanna Slaughter APRN.TRANSITION MANAGER Work Phone: Pre AnesthesiaComment on above:Results; Preparations For SurgeryStart: 01-28-2024 End: 64-62-4691Vlksxyxir to [facility] 4 Work Phone: pre AnesthesiaStart: 01-28-2024 End: 41-61-0516Uezlhhxgun consultationSkagit Valley Hospital Work Phone: Pre AnesthesiaComment on above:Pre-op evaluation (Primary Dx); Hyperlipidemia, unspecified hyperlipidemia type; Primary hypertension; Neurogenic bladder; Antineoplastic chemotherapy induced anemiaStart: 01-28-2024 End: 44-69-5429Qiagttfvouabd examination [place] [address] Work Phone: [facility] Work Phone: Start: 01-18-2024 End: 38-25-8525Ixzlec Kelsey Abreu APRN.TRANSITION MANAGER Work Phone: UrologyComment on above:Bacteriuria (Primary Dx)Start: 01-15-2024 End: 38-94-4594uifmihjkexLgloq [address] [place] Work Phone: Hematology/OncologyComment on above:Malignant neoplasm of overlapping sites of bladder (HCC) (Primary Dx); Neoplasm of bladder; Abnormal coagulation profile; Abnormal urine levels of substances chiefly nonmedicinal as to sourceStart: 01-08-2024 End: 95-75-2295uukzrhcdqmHhzam [address] [place] Work Phone: Hematology/OncologyComment on above:Malignant neoplasm of overlapping sites of bladder (HCC) (Primary Dx)Start: 01-08-2024 End: 14-13-1417Kmtvbsz encounter procedureFaisal Dasilva MD Work Phone: Hematology/OncologyStart: 01-04-2024 End: 04-41-2830Fswlvqu encounter procedureJason Will MD Work Phone: UrologyComment on above:History of bladder cancer (Primary Dx); Screening for genitourinary conditionStart: 01-04-2024 End: 03-42-8250dxfrquhohrPsyqwb Suman NORWOOD Work Phone: UrologyStart: 12-24-2023 End: 61-40-8902sqgszsxkgsOzgim 6 Adriano Work Phone: Hematology/OncologyComment on above:Malignant neoplasm of overlapping sites of bladder (HCC) (Primary Dx)Start: 12-24-2023 End: 05-92-1773Wjadvrn encounter procedureFaisal Dasilva MD Work Phone: Hematology/OncologyStart: 09-10-8130Rckvlhndd encounterMinthierry Lockhart PA-C Work Phone: Cancer Appts MCComment on above:Radiology USStart: 12-17-2023 End: 73-08-8882jhsmmfklvlOzmgw 9 [employer] Work Phone: Hematology/OncologyComment on above:Malignant neoplasm of overlapping sites of bladder (HCC) (Primary Dx)Start: 12-17-2023 End: 04-48-9654Kijtaq outpatient visit 15 minutesMinthierry AMOS-C Work Phone: Hematology/OncologyComment on above:Malignant neoplasm of overlapping sites of bladder (HCC) (Primary Dx); Swelling of joint of upper arm, right; Swelling of arm; Anemia, unspecified typeStart: 12-03-2023 End: 90-67-4263gcxedknnogHuxud 9 [place] Work Phone: Hematology/OncologyComment on above:Malignant neoplasm of overlapping sites of bladder (HCC) (Primary Dx)Start: 11-26-2023 End: 13-89-2868Zgkemu WorkLori Donavan [facility]ENTERematology/OncologyComment on above: Malignant neoplasm of overlapping sites of bladder (HCC) (Primary Dx)Malignant neoplasm of overlapping sites of bladder (HCC) (Primary Dx); Neurogenic bladderStart: 92-90-0994MvsugcLcytf R Murphy MD Work Phone: Hematology/OncologyComment on above:Refill Request Start: 11-12-2023 End: 36-12-5716fmjvrugmwqPinoe 7 [place] Work Phone: Hematology/OncologyComment on above:Malignant neoplasm of overlapping sites of bladder (HCC) (Primary Dx)Malignant neoplasm of overlapping sites of bladder (HCC) (Primary Dx); Neurogenic bladderStart: 11-12-2023 End: 62-97-0166Qixmtxy encounter Gin Dasilva MD Work Phone: Hematology/OncologyStart: 42-82-1767Aljhza WorkUnitypoint Health-Saint [facility] Donavan [facility]ENTERematology/OncologyStart: 00-66-0432Kujdtctbk encounterDonald Perez RN Work Phone: Hematology/OncologyComment on above:Care Coordination (C1D1 Post Treatment Call)Start: 11-05-2023 End: 89-50-7982igckakjpwtGhymn 9 [place] Work Phone: Hematology/OncologyComment on above:Malignant neoplasm of overlapping sites of bladder (HCC) (Primary Dx)Start: 11-05-2023 End: 71-53-4805Hyyaov outpatient visit 15 minutesMarlee Lockhart PA-C Work Phone: Hematology/OncologyComment on above:Malignant neoplasm of overlapping sites of bladder (HCC) (Primary Dx)Start: 17-65-4910Tlavkllxb encounterDonald Perez RN Work Phone: Hematology/OncologyStart: 76-84-2722Tuzyqnzsf encounterYesenia Irving RNHematology/OncologyComment on above:Informed Consent Start: 10-62-9026kcbevjumzbGjqradj Sessler RN Work Phone: Hematology/OncologyComment on above:First Time Treatment Education (Cisplatin & Gemcitabine)Start: 94-33-6016Czrasrjpw encounterMarlee Lockhart PA-C Work Phone: Hematology/OncologyComment on above:Lab OrdersStart: 73-49-5814Jdmpwspox encounterRevernon Perez RN Work Phone: Hematology/OncologyComment on above:Care Coordination (Antiemetics)Refill RequestCare Coordination (PET Results)Start: 10-22-2023 End: 27-66-4155jwlviyhsakWmgym R Murphy MD Work Phone: Hematology/OncologyComment on above:Malignant neoplasm of overlapping sites of bladder (HCC) (Primary Dx); Neurogenic bladder; Abnormal imaging of thyroidStart: 10-22-2023 End: 19-06-2657Wfcdczh encounter Gin Dasilva MD Work Phone: Hematology/OncologyStart: 10-16-2023 End: 45-28-5142Tvnkikzghl hospital visit by physicianArrival Time Radiology Work Phone: Radiology Pet CTComment on above:Malignant neoplasm of overlapping sites of bladder (HCC) [C67.8]Start: 10-05-2023 End: 23-97-3188Firyfxr encounter Karen Will MD Work Phone: UrologyComment on above:Acute cystitis without hematuria (Primary Dx); Screening for nephropathyStart: 09-27-2023 End: 48-99-1445drrtjhpplsVepey R Murphy MD Work Phone: Hematology/OncologyComment on above:Malignant neoplasm of overlapping sites of bladder (HCC) (Primary Dx); Neurogenic bladderStart: 09-27-2023 End: 88-85-3399Cybapre encounter Gin Dasilva MD Work Phone: Hematology/OncologyStart: 09-21-2023 End: 92-70-9720Byvgekw evaluation of patient and reportNurse Urol Fair[employer] Work Phone: UrologyComment on above:Malignant neoplasm of urinary bladder, unspecified site (HCC) (Primary Dx)Start: 64-13-8787Smxhwimta encounter Jason Will MD Work Phone: UrologyComment on above:AppointmentStart: 09-13-2023 Telephone encounterJason Will MD Work Phone: UrologyComment on above:ResultsStart: 09-07-2023 Telephone encounterYvette Gongora RNUrologyComment on above:Surgical Followup Start: 09-03-2023 End: 12-47-5881Xyyuhgrbkn hospital visit by physicianCt [facility] Radiology Ct ScanComment on above:Malignant neoplasm of urinary bladder, unspecified site (HCC) [C67.9]Start: 18-87-8594Jjucki Kelsey Abreu APRN.CNP Work Phone: UrologyComment on above:Bacteriuria (Primary Dx)Start: 06-15-7657Asljywrjb encounterAmy Penn RNUrologyComment on above:Pre-Op TeachingStart: 08-28-2023 End: 90-52-2623Mvpsobkon to establishmentAdventist Health [facility] 1 Work Phone: Pre AnesthesiaStart: 08-28-2023 End: 17-28-0753Npdeycbogv [facility] 1 Work Phone: Pre AnesthesiaComment on above:Preoperative clearance (Primary Dx); Neurogenic bladder; Lesion of bladderStart: 08-28-2023 End: 33-52-4248Eufrlpszmajj [facility] 1 Work Phone: [facility] Work Phone: Start: 65-09-9336Xgpnimvbl encounterJason Will MD Work Phone: UrologyComment on above:Surgery and PACC datesStart: 08-24-2023 End: 93-70-3524Hepkcrs encounter procedureJason Will MD Work Phone: UrologyComment on above:Malignant neoplasm of urinary bladder, unspecified site (HCC) (Primary Dx); Diverticulum of bladder; Benign prostatic hyperplasia with urinary obstructionStart: 72-87-6797jgnwjvuvaf Jason Will MD Work Phone: UrologyStart: 47-85-1507bdpfebsusrSgzykwv R WATERS Facility:EU [place]vueStart: 08-01-2023 End: 09-47-2057nchboplwmtJzwjxyw R WATERSFacility:FTMCStart: 08-01-2023 End: 15-42-1312crmxruncneOlrdtsu R WATERSFacility:EU [place]Start: 08-01-2023 End: 70-66-2119Mqk Drop offAntonio GARY [facility] Start: 08-01-2023 End: 27-87-2812Zqkttnp encounter procedureAntonio GARY [facility] Start: 08-07-2022 End: 23-70-0234Mtvjgzq encounter procedureAntonio GARY [facility] Procedures DateProcedureProcedure DetailPerforming ClinicianStart: 32-65-3703Gdrnc of parathormonePaul S Trent DO Work Phone: start: 05-93-1621Qj abdomen & pelvis w/contrast Germán Dasilva MD Work Phone: Start: 55-63-8696Bs thorax w/contrast Germán Dasilva MD Work Phone: Start: 74-85-0961Pznac count complete auto&auto difrntl wbcJaimee Sierra CATERING SOUS CHEF.TRANSITION MANAGER Work Phone: Start: 15-73-4871Jnlevujucqowvv time partial plasma/whole bloodRobjorgito Will MD Work Phone: Start: 14-51-7084Yfrmy dip stick/tablet rgnt auto w/o microscopyRobert Suman NORWOOD Work Phone: Start: 34-78-1855Epcqh metabolic panel calcium total Faisal Dasilva MD Work Phone: Start: 55-16-1302Tbr imaging ct attenuation skull base mid-thighFaisal Dasilva MD Work Phone: Start: 02-67-5518Gdfw bld gluc mntr dev cleared fda spec home useCcf ProviderStart: 90-71-9864Up abdomen & pelvis w/o contrst 1/> body reRobert Suman NORWOOD Work Phone: Start: 56-77-1849Bup routine ecg w/least 12 lds i&r onlyCcf ProviderStart: 36-76-8852Pcrxnkubdihnj cystoscopyPatrick GARY ColonoscopyPatrick GARY Repair of inguinal herniaLovelace Women's Hospital Plan of Treatment DateCare ActivityDetailAuthorStart: 58-21-3163Ezhaoxbj ScreeningDiabetes ScreeningAvita Health System Ontario Hospitaltart: 73-40-7763Eysfkmym ScreeningDiabetes Screening [facility] Hospitaltart: 70-11-6544Rpbdsthp ScreeningDiabetes ScreeningAvita Health System Ontario Hospitaltart: 96-63-2628Xdbosfjv ScreeningDiabetes ScreeningTrihealth [facility]hes[facility] Start: 14-29-8690Rnvvczfi ScreeningDiabetes ScreeningAvita Health System Ontario Hospitaltart: 21-08-8287Ookhjzep ScreeningDiabetes ScreeningAvita Health System Ontario Hospitaltart: 01-07-2027 Diabetes ScreeningDiabetes ScreeningAvita Health System Ontario Hospitaltart: 03-91-7016Qjvznrcw ScreeningDiabetes ScreeningKermit ClinicStart: 99-55-9153Ljjayswm Screening Diabetes ScreeningAvita Health System Ontario Hospitaltart: 47-98-2199Vbqofizn ScreeningDiabetes ScreeningAvita Health System Ontario Hospitaltart: 08-85-6202Ixinuzcs ScreeningDiabetes Screening [facility] Hospitaltart: 88-79-9256Nywetvbp ScreeningDiabetes ScreeningAvita Health System Ontario Hospitaltart: 94-23-4316Xqdetqqc ScreeningDiabetes ScreeningTrihealth Bethesda North Hospital Start: 01-27-4998Qwotalko ScreeningDiabetes ScreeningAvita Health System Ontario Hospitaltart: 14-00-2803Rwvmwyyj ScreeningDiabetes ScreeningAvita Health System Ontario Hospitaltart: 08-27-2026 Diabetes ScreeningDiabetes ScreeningAvita Health System Ontario Hospitaltart: 52-48-9345LY Controlled (<130/80)BP Controlled (<130/80)[facility] Hospitaltart: 05-19-2025 End: 53-07-4384Xqyghva encounter ufjkpyisk90/13/2026 10:00 AM EST Office Visit [facility] [address] [place] [address] Tanesha Casiano NP [address], [place] [id number] [facility]: 05-08-2025 End: 34-71-4918Yrymjuabiqyyu metabolic 2000 panel - Serum or PlasmaComprehensive metabolic panel Lab Routine Prediabetes Chronic heart failure, unspecified heart failure type (HCC) Primary hypertension Expected: 05/08/2025 (Approximate), Expires: 02/05/2026[facility] HealthcareComment on above:Expected: 05/08/2025 (Approximate), Expires: 02/05/2026Start: 05-08-2025 End: 40-43-0718Repiwynadc A1c/Hemoglobin.total in BloodHemoglobin A1c Lab Routine Prediabetes Expected: 05/08/2025 (Approximate), Expires: 02/05/2026N[facility] HealthcareComment on above:Expected: 05/08/2025 (Approximate), Expires: 02/05/2026Start: 05-08-2025 End: 94-73-0463Ldyrf 1996 panel - Serum or PlasmaLipid panel Lab Routine Mixed hyperlipidemia Expected: 05/08/2025 (Approximate), Expires: 02/05/2026NOM[facility] HealthcareComment on above:Expected: 05/08/2025 (Approximate), Expires: 02/05/2026Start: 05-08-2025 End: 34-47-0400Owajgtsk specific Ag [Mass/volume] in Serum or PlasmaPSA Lab Routine Wellness examination Expected: 05/08/2025 (Approximate), Expires: 02/05/2026N[facility] HealthcareComment on above:Expected: 05/08/2025 (Approximate), Expires: 02/05/2026Start: 03-25-2025 End: 10-99-1156asjmowpigc72/19/2025 3:00 PM EST Visit (SP) Office Hematology/Oncology [address] [place], [place] [phone] Ankit Neil MD [address] [place] [address] 3 month ANIL/BRM labHematology/OncologyComment on above:3 month ANIL/BRM labStart: 03-25-2025 End: 01-30-6742Iugzafy encounter kvfyseqod78/19/2025 2:45 PM EST Office Visit [facility] [address] [place] [address] 3 month ANIL/BRM labNortEaton Rapids Medical Center LaboratoryComment on above:3 month ANIL/BRM labStart: 03-06-2025 End: 25-68-6599Ylbxyki encounter procedureUrologyComment on above:Cystoscopy Start: 02-27-2025 End: 91-54-4035Qraicfk encounter /24/2025 11:30 AM EDT Office Visit Urology [address] [place] [address] [place] [address] [place] [address] CYSTOSCOPYUrologyComment on above:CYSTOSCOPYStart: 02-26-2025 End: 24-09-9144Aaptwng encounter /23/2025 11:00 AM EDT Office Visit Urology [address] [place] [address] [place] [address] [place] [address] CYSTOSCOPYUrologyComment on above:CYSTOSCOPYStart: 02-05-2025 End: 18-67-8553HLM 12 leadECG 12 lead ECG Routine Chronic heart failure, unspecified heart failure type (HCC) Expected: 02/05/2025 (Approximate), Expires: 02/05/2026[facility] HealthcareComment on above:Expected: 02/05/2025 (Approximate), Expires: 02/05/2026Start: 02-05-2025 End: 23-40-2035Jtdmhpdvnzfcns 2D completeEchocardiogram 2D complete Echocardiography Routine Chronic heart failure, unspecified heart failure type (HCC) Expected: 02/05/2025 (Approximate), Expires: 02/05/2027[facility] Healthcare Work Phone: Comment on above:Expected: 02/05/2025 (Approximate), Expires: 02/05/2027Start: 02-05-2025 End: 50-51-1445Dhvsdde encounter procedureNaval Hospital PensacolaComment on above:Mixed hyperlipidemia (Primary Dx); Prediabetes; Chronic heart failure, unspecified heart failure type (HCC); Primary hypertensionStart: 13-76-6446GJ Controlled (<130/80)BP Controlled (<130/80)[facility] Hospitaltart: 01-08-2025 End: 75-32-7217MZY 12 leadECG 12 lead ECG Routine Heart failure, unspecified (HCC) Expected: 01/08/2025 (Approximate), Expires: 01/08/2026[facility] Healthcare Comment on above:Expected: 01/08/2025 (Approximate), Expires: 01/08/2026Start: 01-08-2025 End: 06-82-4343Qolwqmtyxl A1c/Hemoglobin.total in BloodHemoglobin A1c Lab Routine Primary hypertension Expected: 01/08/2025 (Approximate), Expires: 01/08/2026[facility] Healthcare Work Phone: Comment on above:Expected: 01/08/2025 (Approximate), Expires: 01/08/2026Start: 01-08-2025 End: 73-03-9670Wetof 1996 panel - Serum or PlasmaLipid panel Lab Routine Primary hypertension Expected: 01/08/2025 (Approximate), Expires: 01/08/2026N[facility] HealthcareComment on above:Expected: 01/08/2025 (Approximate), Expires: 01/08/2026Start: 01-08-2025 End: 85-53-1697Atmtbzd encounter procedurertEaton Rapids Medical Center LaboratoryComment on above:1 month repeat labArrivedStart: 59-69-9932Hrozdcitr vaccinationInfluenza Vaccine (#1)[facility] HealthcareStart: 31-86-1030Siqum microalbumin profileDTaP,Tdap,Td Vaccine (2 - Td or Tdap)[facility] Hospitaltart: 01-01-2025 End: 95-61-1458URU W Auto Differential panel - BloodCOMPLETE BLOOD COUNT AND DIFFERENTIAL Lab Routine Malignant neoplasm of prostate (HCC) Expected: , Expires: 04/02/2025[facility]and [facility] Work Phone: Comment on above:Expected: 01/01/2025, Expires: 04/02/2025Start: 01-01-2025 End: 45-42-9032Zgfbsvbiuvhqt metabolic 2000 panel - Serum or PlasmaCOMPREHENSIVE METABOLIC PANEL Lab Routine Malignant neoplasm of prostate (HCC) Expected: 01/01/2025, Expires: 04/02/2025[facility] ClinicComment on above:Expected: 01/01/2025, Expires: 04/02/2025Start: 12-11-2024 End: 42-89-9985Trhpaw-up gzsyeyxyu29/07/2025 2:30 PM EDT Visit (SP) Office Hematology/Oncology [address] [place], [place] [phone] Jose Martin Hillman APRN.TRANSITION MANAGER [address] [place] [address] 3 month follow up with labHematology/OncologyComment on above:3 month follow up with labStart: 12-11-2024 End: 82-65-8181Giaibrt encounter acjfbshcu85/07/2025 2:15 PM EDT Office Visit [facility] [address] [place] [place] [address] 3 month follow up with labNortEaton Rapids Medical Center LaboratoryComment on above:3 month follow up with labStart: 12-01-2024 End: 79-84-0651HKT W Auto Differential panel - BloodCOMPLETE BLOOD COUNT AND DIFFERENTIAL Lab Routine Malignant neoplasm of overlapping sites of bladder (HCC) Expected: 12/01/2024, Expires: 03/02/2025[facility] Work Phone: Comment on above:Expected: 12/01/2024, Expires: 03/02/2025Start: 12-01-2024 End: 16-29-6570Cnrwgaynuwscu metabolic 2000 panel - Serum or PlasmaCOMPREHENSIVE METABOLIC PANEL Lab Routine Malignant neoplasm of overlapping sites of bladder (HCC) Expected: 12/01/2024, Expires: 03/02/2025[facility] ClinicComment on above: Expected: 12/01/2024, Expires: 03/02/2025Start: 12-01-2024 End: 97-28-9463Ujryqtr encounter procedureNOMS ENT SANDUSKYComment on above: ArrivedStart: 11-17-2024 End: 01-82-3161Bbvsaia encounter procedureNOMS ENT SANDUSKYComment on above: ArrivedStart: 55-80-0910XX Controlled (<130/80)BP Controlled (<130/80)[facility]: 10-28-2024 End: 45-02-1155Jofwwvw encounter /24/2025 11:30 AM EDT Appointment [facility] [place] Scan [address] [place] [address] CT [facility]gramHe[facility] Radiology CT ScanComment on above:CT urogramStart: 90-53-8929VT Controlled (<130/80)BP Controlled (<130/80)[facility]: 09-11-2024 End: 07-01-9428Lsdpyv-up wkovrphwk51/08/2025 3:00 PM EDT Visit (SP) Office Hematology/Oncology [address] [place], [place] [phone] Faisal Dasilva MD [address] [place] [address] [place] [address] 3 month follow upHematology/OncologyComment on above:3 month follow upStart: 08-28-2024 End: 77-27-6791Ddamhdv encounter usajyjmyk61/24/2025 2:00 PM EDT Office Visit Urology [address] [place] [address] Jason Will MD [address] [place], [place] [phone] CystoscopyUrologyComment on above:CystoscopyStart: 08-22-2024 End: 02-54-3350Txlsxlj encounter rpldfxjih04/18/2025 2:00 PM EDT Office Visit Urology [address] [place] [address] Jason Will MD [address] [place] [address] CystoscopyUrologyComment on above:CystoscopyStart: 08-18-2024 End: 78-28-2977Jnqlmgh encounter procedureNOMS ENT SANDUSKYComment on above: ArrivedStart: 08-04-2024 End: 10-77-7526Oukeaqt encounter procedureNOMS ENT SANDUSKYComment on above: ArrivedStart: 09-14-0413Scqyo-19 Vaccine (8 - Pfizer risk season)Covid- 19 Vaccine (8 - Pfizer risk season)[facility]: 06-12-2024 End: 75-10-0900Fqvorw-up vcmemwotc09/06/2025 3:00 PM EST Visit (SP) Office Hematology/Oncology [address] [place] [address] [place], [place] [phone] Fiasal Dasilva MD [address] [place] [address] [place] [address] 3 month follow up after scansHematology/OncologyComment on above:3 month follow up after scansStart: 06-04-2024 End: 31-33-2559GLR W Auto Differential panel - BloodCOMPLETE BLOOD COUNT AND DIFFERENTIAL Lab Routine Neoplasm of bladder Expected: 06/04/2024 (Approximate), Expires: 09/03/2024[facility] Clinic[facility] on above:Expected: 06/04/2024 (Approximate), Expires: 09/03/2024Start: 06-04-2024 End: 58-07-7597Aeedemernlugs metabolic 2000 panel - Serum or PlasmaCOMPREHENSIVE METABOLIC PANEL Lab Routine Neoplasm of bladder Expected: 06/04/2024 (Approximate), Expires: 09/03/2024[facility] Work Phone: Comment on above:Expected: 06/04/2024 (Approximate), Expires: 09/03/2024Start: 06-04-2024 End: 29-36-1620Bintkbm encounter muaooiksv03/29/2025 10:15 AM EST Appointment Radiology Pet CT [address] [place] [address] CT CAP W IV CON and labsRadiology Pet CTComment on above:CT CAP W IV CON and labsStart: 54-30-0762Bdsxplk Directive DiscussionAdvance Directive DiscussionAvita Health System [facility] Hospitaltart: 88-98-3103Peywz-19 Vaccine ( season)Covid-19 Vaccine ( season)[facility]: 03-11-2024 End: 64-61-2556Cveupp-up /05/2024 3:00 PM EST Visit (SP) Office Hematology/Oncology [address] [place], [place] [phone] Faisal Dasilva MD [address] [place] [address] lab follow up, no tx this dayHematology/OncologyComment on above:lab follow up, no tx this dayStart: 03-11-2024 End: 94-89-0935Clutpde encounter lthygymek16/05/2024 2:45 PM EST Office Visit [facility] [address] [place] [address] lab follow up, no tx this dayNortEaton Rapids Medical Center LaboratoryComment on above:lab follow up, no tx this dayStart: 03-11-2024 End: 80-79-6384EJQ W Auto Differential panel - BloodCOMPLETE BLOOD COUNT AND DIFFERENTIAL Lab Routine Malignant neoplasm of overlapping sites of bladder (HCC) Expected: 03/11/2024 (Approximate), Expires: 06/10/2024[facility] Comment on above:Expected: 03/11/2024 (Approximate), Expires: 06/10/2024Start: 03-11-2024 End: 81-45-9621Nrzwmvaauhknl metabolic 2000 panel - Serum or PlasmaCOMPREHENSIVE METABOLIC PANEL Lab Routine Malignant neoplasm of overlapping sites of bladder (HCC) Expected: 03/11/2024 (Approximate), Expires: 06/10/2024[facility] Work Phone: Comment on above:Expected: 03/11/2024 (Approximate), Expires: 06/10/2024Start: 02-18-2024 End: 47-41-6928Ymwlnvpda to same day surgery [facility] Operating RoomComment on above:CYSTOURETHROSCOPY W/FULGURATION &/OR RESECTION MEDIUM BLADDER TUMOR(S) 2.0 - 5.0 CM W/SALINE BIPOLARStart: 02-18-2024 End: 40-32-2997Zogomhmqpcslomyjw w/dest &/rmvl med bladder tumFV ORStart: 94-07-8121Gvvvlugjba hospital visit by [facility] Operating Room Comment on above:Neoplasm of bladder [D49.4]Start: 02-12-2024 End: 27-52-8696Odlzvg-up encounterHematology/OncologyComment on above:5 week Follow Up lab Chemotx Cisplatin + Gemzarlab follow up, no tx this dayStart: 02-12-2024 End: 41-68-0302Yfsoaau encounter procedureNortEaton Rapids Medical Center LaboratoryComment on above:5 week Follow Up lab Chemotx Cisplatin + Gemzarlab follow up, no tx this dayStart: 01-28-2024 End: 89-97-2061Jhnpuflctm umnwnckyghfw71/23/2024 2:20 PM EDT PAT Pre Anesthesia [address] [place] [address] CYSTOURETHROSCOPY W/FULGURATION &/OR RESECTION MEDIUM BLADDER TUMOR(S) 2.0 - 5.0 CM W/SALINE BIPOL AR [81434] - Bladder - N/APre AnesthesiaComment on above:CYSTOURETHROSCOPY W/FULGURATION &/OR RESECTION MEDIUM BLADDER TUMOR(S) 2.0 - 5.0 CM W/SALINE BIP OLAR [[id number]] - Bladder - N/AStart: 01-28-2024 End: 81-49-1911TCT panel - Blood by Automated countPromedica Toledo Hospital Work Phone: Comment on above:Expected: 01/28/2024, Expires: 04/28/2024Start: 01-15-2024 End: 27-11-5734xbaodnaxlw74/10/2024 9:30 AM EDT [facility] Hematology/Oncology [address] [place] [address] 1 week lab Chemotx Cisplatin + GemzarHematology/OncologyComment on above:1 week lab Chemotx Cisplatin + GemzarStart: 01-08-2024 End: 91-97-5871Dzkqoh-up encounterHematology/OncologyComment on above:2 week Follow Up lab Chemotx Cisplatin + GemzarStart: 01-08-2024 End: 35-12-7989Ypdnros encounter slngpjivh43/03/2024 8:45 AM EDT Office Visit [facility] [address] [facility] [address] 2 week Follow Up lab Chemotx Cisplatin + GemzarNortEaton Rapids Medical Center LaboratoryComment on above:2 week Follow Up lab Chemotx Cisplatin + GemzarStart: 43-12-7293Yciib-19 Vaccine ()Covid-19 Vaccine ()[facility]: 88-75-6806Evffa-19 Vaccine ( season)Covid-19 Vaccine ( season)[facility]: 65-14-3786Zqfjswkeq vaccinationInfluenza Vaccine (#1)[facility]: 01-04-2024 End: 00-22-6592dVUH in Platelet poor plasma by Coagulation assayACTIVATED PARTIAL THROMBOPLASTIN TIME Lab Routine Neoplasm of bladder Abnormal coagulation profile Expected: 01/04/2024, Expires: 04/04/2024[facility]:Expected: 01/04/2024, Expires: 04/04/2024Start: 01-04-2024 End: 47-65-1878Xoqqiwgg identified in Urine by CultureURINE CULTURE Microbiology Routine Neoplasm of bladder Abnormal urine levels of substances chiefly n onmedicinal as to source Expected: 01/04/2024, Expires: 04/04/2024[facility] ClinicComment on above:Expected: 01/04/2024, Expires: 04/04/2024Start: 01-04-2024 End: 89-46-8631LVG W Auto Differential panel - BloodCOMPLETE BLOOD COUNT AND DIFFERENTIAL Lab Routine Neoplasm of bladder Expected: 01/04/2024, Expires: 04/04/2024[facility] Work Phone: Comment on above:Expected: 01/04/2024, Expires: 04/04/2024Start: 01-04-2024 End: 00-77-0479Wzxmjwqrpzdsp metabolic 2000 panel - Serum or PlasmaCOMPREHENSIVE METABOLIC PANEL Lab Routine Neoplasm of bladder Expected: 01/04/2024, Expires: 04/04/2024[facility] ClinicComment on above:Expected: 01/04/2024, Expires: 04/04/2024Start: 01-04-2024 End: 31-74-0903Dsdupee encounter ddplfgjiy18/30/2024 2:00 PM EDT Office Visit Urology [address] [place] [address] Jason Will MD [address] [place], [place] [phone] (work) CystoscopyUrologyComment on above:CystoscopyStart: 01-04-2024 End: 30-31-8042OQ panel - Platelet poor plasma by Coagulation assayPROTHROMBIN TIME Lab Routine Neoplasm of bladder Expected: 01/04/2024, Expires: 04/04/2024 [facility] HospitalComment on above:Expected: 01/04/2024, Expires: 04/04/2024Start: 12-17-2023 End: 08-24-3088Nljtqn-up encounterHematology/OncologyComment on above:lab follow up and chemotx Cisplatin + GemzarStart: 12-17-2023 End: 30-83-8127Aegiigu encounter umnwduizi47/12/2024 10:15 AM EDT Office Visit [facility] [address] [place] [address] [place] [address] lab follow up and chemotx Cisplatin + GemzarNortEaton Rapids Medical Center LaboratoryComment on above:lab follow up and chemotx Cisplatin + GemzarStart: 12-03-2023 End: 63-84-8451rmyemcierk23/29/2024 10:30 AM EDT [facility] Hematology/Oncology [address] [place] [address] chemotx Cisplatin + GemzarHematology/OncologyComment on above:chemotx Cisplatin + Gemzar Start: 11-12-2023 End: 26-20-0133Clhtiz-up encounterHematology/OncologyComment on above:lab follow up and chemotx Cisplatin + Gemzar (brm patient)lab follow up and chemotx Cisplatin + GemzarStart: 11-12-2023 End: 97-75-9628Mfykfpl encounter /08/2024 8:45 AM EDT Office Visit [facility] [address] [place], [place] [address] [address] lab follow up and chemotx Cisplatin + GemzarNortEaton Rapids Medical Center LaboratoryComment on above:lab follow up and chemotx Cisplatin + GemzarStart: 11-05-2023 End: 34-42-6219GDF W Auto Differential panel - BloodCOMPLETE BLOOD COUNT AND DIFFERENTIAL Lab Routine Malignant neoplasm of overlapping sites of bladder (HCC) Expected: 11/05/2023, Expires: 02/04/2024[facility]: Expected: 11/05/2023, Expires: 02/04/2024Start: 11-05-2023 End: 19-91-9516Ihtabbbygzmcu metabolic 2000 panel - Serum or PlasmaCOMPREHENSIVE METABOLIC PANEL Lab Routine Malignant neoplasm of overlapping sites of bladder (HCC) Expected: 11/05/2023, Expires: 02/04/2024[facility] Work Phone: Comment on above:Expected: 11/05/2023, Expires: 02/04/2024Start: 11-05-2023 End: 39-07-6057Dyctutzpa [Mass/volume] in Serum or PlasmaMAGNESIUM Lab Routine Malignant neoplasm of overlapping sites of bladder (HCC) Expected: 11/05/2023, Expires: 02/04/2024[facility] ClinicComment on above:Expected: 11/05/2023, Expires: 02/04/2024Start: 11-05-2023 End: 18-06-1359Gbvwzv-up encounterHematology/OncologyComment on above:lab follow up and chemotx Cisplatin + Gemzar (brm patient)lab follow up and chemotx Cisplatin + GemzarStart: 11-05-2023 End: 35-32-9952Ejgkvah encounter atybhkksm21/01/2024 10:45 AM EDT Office Visit [facility] [address] [place] [address] [place] [address] lab follow up and chemotx Cisplatin + GemzarNortEaton Rapids Medical Center LaboratoryComment on above:lab follow up and chemotx Cisplatin + GemzarStart: 10-24-2023 End: 40-51-7249XPP W Auto Differential panel - BloodCOMPLETE BLOOD COUNT AND DIFFERENTIAL Lab Routine Malignant neoplasm of overlapping sites of bladder (HCC) Expected: 10/24/2023, Expires: 01/23/2024[facility]: Expected: 10/24/2023, Expires: 01/23/2024Start: 10-24-2023 End: 64-38-3429Vtgdmezqbtcxc metabolic 2000 panel - Serum or PlasmaCOMPREHENSIVE METABOLIC PANEL Lab Routine Malignant neoplasm of overlapping sites of bladder (HCC) Expected: 10/24/2023, Expires: 01/23/2024[facility] Work Phone: Comment on above:Expected: 10/24/2023, Expires: 01/23/2024Start: 10-24-2023 End: 18-41-2478Bkiqrqnae [Mass/volume] in Serum or PlasmaMAGNESIUM Lab Routine Malignant neoplasm of overlapping sites of bladder (HCC) Expected: 10/24/2023, Expires: 01/23/2024[facility] ClinicComment on above:Expected: 10/24/2023, Expires: 01/23/2024Start: 10-24-2023 End: 07-79-7300Xiisshv evaluation of patient and uxwwon5110/24/2023 11:00 AM EDT Nurse Visit Hematology/Oncology [address] [place] [address] [place] [address] Donald Perez, RN [address] [place] [address] [place] [address] Cisplatin + GemzarHematology/OncologyComment on above: Cisplatin + GemzarStart: 10-22-2023 End: 15-61-4111Kwzgic-up sgnbezfgs64/17/2024 10:45 AM EDT Visit (SP) Office Hematology/Oncology [address] [place] [address] [place] [address] Faisal Dasilva MD [address] [place] [address] [place] [address] Follow up for pet scan resultsHematology/OncologyComment on above: Follow up for pet scan resultsStart: 10-16-2023 End: 01-77-1443Tywyqba encounter /11/2024 1:30 PM EDT Appointment Radiology Pet CT [address] [place] [address] Pet scan Radiology Pet CTComment on above:Pet scanStart: 10-05-2023 End: 55-62-2047Zwjmppv encounter hbmzcqkhu62/31/2024 3:00 PM EDT Office Visit Urology [address] [place] [address] Jason Will MD [address] [place] [address] WillUrologyComment on above:Stent extraction Per Dr. Bazzitart: 09-27-2023 End: 84-00-6634dqogtxzoam66/23/2024 11:00 AM EDT Visit (SP) Office Hematology/Oncology [address] [place] [address] [place] [address] Faisal Dasilva MD [address] [place] [address] [place] [address] New pt - Dx: urothelial carcinoma; discuss adjuvant therapeutic options - Referred by Dr. Jason Delacruz MD Pt's chose this date due to pt having catheter taking out on 09/20, prefers this day!!Hematology/Oncology Comment on above:New pt - Dx: urothelial carcinoma; discuss adjuvant therapeutic options - Referred by Dr. Jason Delacruz MD Pt's chose this date due to pt having catheter taking out on 09/20, prefers this day!!Start: 09-21-2023 End: 06-33-6176Qiqrpek evaluation of patient and nflzlm4309/21/2023 9:00 AM EDT Nurse Visit Urology [address] [place] [address] Mob, Nurse Urol Fair [address] [place] [address] TOV 09/20UrologyComment on above:TOV 09/20Start: 09-06-2023 End: 70-74-3887Jdretdnff to same day surgery igclcv2809/06/2023 11:15 AM EDT - 09/06/2023 5:00 PM EDT Surgery [facility] Operating Room [address] [place] [address] Jason Will MD [address] [place], [place] [id number] ROBOTIC LAPAROSCOPIC EXCISION BLADDER DIVERTICULUM,SINGLE OR MULTIPLEBristol County [facility] Operating RoomComment on above:ROBOTIC LAPAROSCOPIC EXCISION BLADDER DIVERTICULUM,SINGLE OR MULTIPLE Start: 34-03-7904Qbmwluwzdl hospital visit by physicianB[facility] Operating RoomComment on above:Neoplasm of bladder [D49.4]Start: 09-06-2023 End: 04-85-3853Jpnlcnvc laparoscopy procedure bladderROBOTIC LAPAROSCOPIC EXCISION BLADDER DIVERTICULUM,SINGLE OR MULTIPLE Neoplasm of bladder 09/06/2023 11:15 AM EDTFV ORStart: 09-03-2023 End: 98-72-6632Ieushay encounter bzfedrqjs07/29/2024 2:00 PM EDT Appointment Radiology Ct Scan [address] [place] [address] ScanComment on above:CT UROGRAMStart: 08-31-2023 End: 17-95-9167Shqrxkz encounter /26/2024 9:00 AM EDT Office Visit [facility] [address] [place] [address] UA sampleNortEaton Rapids Medical Center [facility] Comment on above:UA sampleStart: 08-28-2023 End: 60-53-5134Tmbceimnie lznmbdcdrryj66/23/2024 12:00 PM EDT PAT Pre Anesthesia [address] [place] [address] Procedure: ROBOTIC LAPAROSCOPIC EXCISION BLADDER DIVERTICULUM,SINGLE OR MULTIPLEPre Anesthesia Comment on above:Procedure: ROBOTIC LAPAROSCOPIC EXCISION BLADDER DIVERTICULUM,SINGLE OR MULTIPLEStart: 08-24-2023 End: 39-63-6707pYLF in Platelet poor plasma by Coagulation assayACTIVATED PARTIAL THROMBOPLASTIN TIME Lab Routine Malignant neoplasm of overlapping sites of bladder (HCC) Neoplasm of bladder Abnormal coagulation profile Expected: 08/24/2023, Expires: 11/23/2023[facility] Work Phone: Comment on above:Expected: 08/24/2023, Expires: 11/23/2023Start: 08-24-2023 End: 34-40-0835Ldlvgeau identified in Urine by CultureURINE CULTURE Microbiology Routine Malignant neoplasm of overlapping sites of bladder (HCC) Neoplasm of bladder Abnormal urine levels of substances chiefly nonmedicinal as to source Expected: 08/24/2023, Expires: 11/23/2023[facility] Work Phone: Comment on above:Expected: 08/24/2023, Expires: 11/23/2023Start: 08-24-2023 End: 13-71-1691EOA W Auto Differential panel - BloodCOMPLETE BLOOD COUNT AND DIFFERENTIAL Lab Routine Malignant neoplasm of overlapping sites of bladder (HCC) Neoplasm of bladder Expected: 08/24/2023, Expires: 11/23/2023[facility] Work Phone: Comment on above:Expected: 08/24/2023, Expires: 11/23/2023Start: 08-24-2023 End: 81-74-1863Jruksdfuccmgd metabolic 2000 panel - Serum or PlasmaCOMPREHENSIVE METABOLIC PANEL Lab Routine Malignant neoplasm of overlapping sites of bladder (HCC) Neoplasm of bladder Expected: 08/24/2023, Expires: 11/23/2023[facility] Work Phone: Comment on above:Expected: 08/24/2023, Expires: 11/23/2023Start: 08-24-2023 End: 07-20-7196SQERWNA BLOOD TYPECONFIRM BLOOD TYPE Blood Bank Routine Malignant neoplasm of overlapping sites of bladder (HCC) Neoplasm of bladder Expected: 08/24/2023, Expires: 11/23/2023[facility] Work Phone: Comment on above:Expected: 08/24/2023, Expires: 11/23/2023Start: 08-24-2023 End: 54-73-1801EL panel - Platelet poor plasma by Coagulation assayPROTHROMBIN TIME Lab Routine Malignant neoplasm of overlapping sites of bladder (HCC) Neoplasm of bladder Expected: 08/24/2023, Expires: 11/23/2023[facility] Work Phone: Comment on above:Expected: 08/24/2023, Expires: 11/23/2023Start: 08-24-2023 End: 30-61-8835MBFD AND SCREEN,30 DAYTYPE AND SCREEN,30 DAY Blood Bank Routine Malignant neoplasm of overlapping sites of bladder (HCC) Neoplasm of bladder Expected: 08/24/2023, Expires: 11/23/2023[facility] Work Phone: Comment on above:Expected: 08/24/2023, Expires: 11/23/2023Start: 71-58-3602Arqiz-19 Vaccine ()Covid-19 Vaccine ()[facility]: 25-54-8039Lrkloon Directive DiscussionAdvance Directive DiscussionAvita Health System Ontario Hospitaltart: 05-07-2023 Behavioral Health ScreeningBehavioral Health ScreeningAvita Health System Ontario Hospitaltart: 74-70-6579Xwgpo-19 Vaccine ( season)Covid-19 Vaccine ( season)[facility]: 87-47-2864Elhhgsps Vaccine (2 of 2)Shingrix Vaccine (2 of 2)[facility]: 71-47-7584Wzjqnmtrqffj Vaccine: 65+ (2 of 2 - PCV)Pneumococcal Vaccine: 65+ (2 of 2 - PCV)[facility]: 12-01-2010Medicare Annual Wellness VisitMedicare Annual Wellness VisitAvita Health System Ontario Hospitaltart: 25-61-1247Xpcsxxwq ScreeningDiabetes ScreeningTrihealth [facility] Start: 27-43-6211Ithsoc PCP Team Chronic Disease VisitAnnual PCP Team Chronic Disease VisitAvita Health System Ontario Hospitaltart: 36-10-6256Sjvlmti ScreeningAnxiety Screening [facility]: 86-09-2413IA Controlled (<130/80)BP Controlled (<130/80) [facility]: 83-36-5013Abeesdybaa ScreeningDepression Screening [facility]: 95-93-9482Iaohunzik C screeningHepatitis C Screening [facility] HospitalBacteria identified in Urine by CultureURINE CULTURE Microbiology Routine Acute cystitis without hematuria 10/05/2023 2:53 PM EDT [facility] Work Phone: Bacteria identified in Urine by CultureURINE CULTURE Microbiology Routine Neoplasm of bladder Abnormal urine levels of substances chiefly nonmedicinal as to source 01/15/2024 10:09 AM EDTCMercer County Community Hospital Work Phone: End: 96-00-3934FCZ W Auto Differential panel - BloodCOMPLETE BLOOD COUNT AND DIFFERENTIAL Lab Routine Malignant neoplasm of overlapping sites of bladder (HCC) Every other week for 2 Occurrences starting 12/17/2023 until 12/16/2024 [facility] HospitalComment on above:Every other week for 2 Occurrences starting 12/17/2023 until 12/16/2024 End: 48-14-5151Nimbqqgypeswv metabolic 2000 panel - Serum or PlasmaCOMPREHENSIVE METABOLIC PANEL Lab Routine Malignant neoplasm of overlapping sites of bladder (HCC) Every other week for 2 Occurrences starting 12/17/2023 until 12/16/2024 [facility] Work Phone: Comment on above:Every other week for 2 Occurrences starting 12/17/2023 until 12/16/2024 End: 93-40-5274JR Abdomen and Pelvis W contrast IVCT ABD/PEL W IVCON Radiology Routine Malignant neoplasm of overlapping sites of bladder (HCC) 1 Occurrences starting 03/11/[address] [place] [address] Work Phone: Comment on above:1 Occurrences starting 03/11/2024 until 04/10/2025 End: 97-91-3435NQ Chest W contrast IVCT CHEST W IVCON Radiology Routine Malignant neoplasm of overlapping sites of bladder (HCC) 1 Occurrences starting 03/11/2024 until 04/10/2025[facility]Comment [facility]:1 Occurrences starting 03/11/2024 until 04/10/2025 End: 97-43-1258GT Kidney WO and W contrast IVCT UROGRAM WO/W IVCON Radiology Routine Malignant neoplasm of urinary bladder, unspecified site (HCC) 1 Occurrences starting 08/24/[address] [place] [address] Work Phone: Comment on above:1 Occurrences starting 08/24/2023 until 5CT Kidney WO and W contrast IVCT UROGRAM WO/W IVCON Radiology Routine 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)10/28/2024 10:51 AM [facility] Work Phone: Cystourethroscopy w/dest &/rmvl med bladder jocy CYSTOURETHROSCOPY W/FULGURATION &/OR RESECTION MEDIUM BLADDER TUMOR(S) 2.0 - 5.0 CM W/SALINE BIPOLAR Neoplasm of bladderFV ORCYTOLOGY NON-GYNCYTOLOGY NON-MULTIPLE RESAW OPERATOR Lab Routine History of bladder cancer 01/04/2024 2:22 PM [facility] Work Phone: ECG COMPLETEPromedica Toledo Hospital Work Phone: Comment on above:Ordered: 08/28/2023 End: 49-23-0096Xqrbaqkkq [Mass/volume] in Serum or PlasmaMAGNESIUM Lab Routine Malignant neoplasm of overlapping sites of bladder (HCC) Every other week for2 Occurrences starting 12/17/[address] [place], [place] [address]Comment on above:Every other week for 2 Occurrences starting 12/17/2023 until 12/16/2024 End: 73-84-0520IQC+CT Guidance for localization of tumor of Skull base to mid-thigh-- W 18F-FDG IVNM PET/CT SKULL-THIGH INITIAL Radiology Routine Malignant neoplasm of overlapping sites of bladder (HCC) 1 Occurrences starting 09/27/[address] [place] [address] Work Phone: Comment on above:1 Occurrences starting 09/27/2023 until 10/26/2024Thyrotropin [Units/volume] in Serum or PlasmaT4 Lab Routine 07/14/2024 11:13 AM [employer] Work Phone: Unlisted laparoscopy procedure bladderROBOTIC LAPAROSCOPIC EXCISION BLADDER DIVERTICULUM,SINGLE OR MULTIPLE Neoplasm of bladderFV OR End: 66-78-1011LE Thyroid glandUS THYROID/PARATHYROID Radiology Routine Abnormal imaging of thyroid 1 Occurrences starting 06/12/[address] [place] [address] Work Phone: Comment on above:1 Occurrences starting 06/12/2024 until 07/12/2025 End: 81-42-6037GZ Upper extremity vein - rightUS DVT UPPER RIGHT Radiology STAT Malignant neoplasm of overlapping sites of bladder (HCC) Swellingof arm 1 Occurrences starting 12/17/2023 until 5[facility] Occurrences starting 12/17/2023 until [facility] Immunizations Immunization DateImmunizationNotesCare JhyuqvzxRcnonmwu50-03-0856dzydjzjlb, high dose seasonal, preservative-freeAshleigh Swinehart LIQUID CENTER ASSEMBLER Work Phone: [facility] CareKoavbyxqyv57-16-8523PIRN-CIA-9 (COVID-19) vaccine, mRNA, spike protein, LNP, preservative free, 10 mcg/0.2 mL doseAshbutler memorial hospitalNetlogon Swinehart LIQUID CENTER ASSEMBLER Work Phone: [facility] CareCfcatebctl55-00-6459mmsklvrdx virus vaccine, unspecified formulationAshbutler memorial hospitalNetlogon Swinehart LIQUID CENTER ASSEMBLER Work Phone: [facility] CareTqczrlgemv59-68-4218YNQNG-41 vaccine, age 12+ yr (PFIZER-BIONTECH COMIRNAT)Marlee Lockhart PA-C Work Phone: [facility] HospitalExdgeh92-09-3386mobpsvogl, high dose seasonal, preservative-freeMarlee Lockhart PA-C Work Phone: [facility] HospitalQkjyoz34-52-6106zwjfjirwn virus vaccine, unspecified formulationRubén Newman DO Work Phone: [facility] CareQwntybqayu18-35-9514XUBJI-07 vaccine, age 12+ yr, season (PFIZER-BIONTECH)Faisal Dasilva MD Work Phone: [facility] HospitalYqcrov64-85-1724qydecyzhplc syncytial virus (RSV) vaccine, bivalent (ABRYSVO)Faisal Dasilva MD Work Phone: [facility] HospitalUytmwp84-76-7077ozcwlfzwi nasal, unspecified formulationFaisal Dasilva MD Work Phone: [facility] HospitalRaepwf16-30-4566jvamsfgwc virus vaccine, unspecified formulationMehranthierry AMOS-C Work Phone: [facility] HospitalCfaxch28-80-8661jvtkujcyy nasal, unspecified formulationFaisal Dasilva MD Work Phone: [facility] HospitalBsihfj57-90-4566bdwflpuni virus vaccine, unspecified formulationSturgis Hospitalthierry AMOS-C Work Phone: [facility] HospitalJunouo29-34-9458nlzicbvpfssv conjugate (PCV15) vaccine, 15 valent (VAXNEUVANCE)Marlee Chantelle AMOS-C Work Phone: [facility] HospitalDdwuot74-06-5246rpxuupkjj (HD-IIV4) vaccine, age 65+ yr, high dose, quadrivalent, PF (FLUZONE HIGH-DOSE)Faisal Dasilva MD Work Phone: [facility] HospitalIjtyqa87-12-7893dmfjamjdu nasal, unspecified formulationFaisal Dasilva MD Work Phone: [facility] HospitalJcgpav29-42-9600egixsfnil virus vaccine, unspecified formulationMoBlackLine Systemskevin GARY [facility]09-28-2022SARS-CoV-2 (COVID-19) mRNAMUL.ORD!u34000Mefofgj WATERS [facility]04-18-2022COVID-19 original vaccine, age 12+ yr, monovalent (PFIZER- BIONTECH - REYES TOP)Faisal Dasilva MD Work Phone: [facility] HospitalUrrxtt05-55-7823ZEBW-BzC-7 mRNA (oyzohpgodxs-vjek-pppjelg) vaccineMoUnited Travel Technologies [facility]09-28-2021SARS-CoV-2 (COVID-19) mRNA BNT-162b2 vaxAshBlackLine Systemskevin GARY [facility]09-13-2021influenza (HD-IIV4) vaccine, age 65+ yr, high dose, quadrivalent, PF (FLUZONE HIGH-DOSE)Faisal Dasilva MD Work Phone: [facility] HospitalYlfhnx19-77-5668hzmiegkqk nasal, unspecified formulationFaisal Dasilva MD Work Phone: [facility] HospitalPvwexl24-98-9174vpakzahxz virus vaccine, unspecified formulationPaUnited Travel Technologies [facility]09-01-2021influenza nasal, unspecified formulationFaisal Dasilva MD Work Phone: [facility] HospitalRefann33-14-0572etiyjlwjw virus vaccine, unspecified formulationMarlee Lockhart PA-C Work Phone: [facility] HospitalCiicba23-47-7721PKRC-SeS-5 (COVID-19) mRNA BNT-162b2 [employer] [facility] on above:Result Comment: 2022-08-07: [id number]-GdF-9 (COVID-19) mRNA BNT-162b2 [employer] [facility] on above:Result Comment: 2022-08-07: HWN8979-48-1247FHBU-AoF-8 (COVID-19) mRNA BNT-162b2 [employer] [facility] on above:Result Comment: pt has had 3 shots to eoms00-87-8310 zoster vaccine recombinantFaisal Dasilva MD Work Phone: [facility] HospitalPdxzuh78-94-7129viresj vaccine recombinant Faisal Dasilva MD Work Phone: [facility] HospitalMpjtvt00-12-8275bbjodadzb nasal, unspecified formulationFaisal Dasilva MD Work Phone: [facility] HospitalNtinus01-65-6002bjuxfopgd virus vaccine, unspecified formulationMindy Chantelle PA-C Work Phone: [facility] HospitalJcqxha44-18-5204ejskbfmhv nasal, unspecified formulationFaisal Dasilva MD Work Phone: [facility] HospitalRsnlar05-67-1295jdscbujdt virus vaccine, unspecified formulationMindy Chantelle PA-C Work Phone: [facility] HospitalFochbg20-41-6656nmtibkldx virus vaccine, unspecified formulationPacaldwell medical centerMeasurement Analytics [facility]09-27-2017influenza, injectable, quadrivalent, contains preservative Faisal Dasilva MD Work Phone: [facility] HospitalHcycrh21-45-4469abdwezvdf virus vaccine, unspecified formulationPacaldwell medical centerk GARY [facility]09-28-2016influenza, injectable, quadrivalent, preservative Milena Dasilva MD Work Phone: [facility] HospitalEompox86-37-2351bdkrsxicsckv polysaccharide vaccine, 23 valentFaisal Dasilva MD Work Phone: [facility] HospitalVnikft24-36-5638imahhtxyewlm vaccine, unspecified formulationFaisal Dasilva MD Work Phone: [facility] HospitalDqldcv05-12-7240mrlgqpj toxoid, reduced diphtheria toxoid, and acellular pertussis vaccine, adsorbedFaisal Dasilva MD Work Phone: [facility] HospitalGtgrxa38-47-0887loyhhwyrm nasal, unspecified formulationFaisal Dasilva MD Work Phone: [facility] HospitalQhxmul67-09-6046secmwjvxg virus vaccine, unspecified formulationMinthierry Lockhart PA-C Work Phone: [facility] HospitalGoyrwz10-25-8665wxfwoemeb nasal, unspecified formulationFaisal Dasilva MD Work Phone: [facility] HospitalInypoo90-87-4039hllkjqkkx virus vaccine, unspecified formulationMindy Chantelle PA-C Work Phone: [facility] HospitalLabxxc56-14-6748abjqaoxxi virus vaccine, whole virusFaisal Dasilva MD Work Phone: [facility] HospitalZkozyc82-62-1469xrjcebkvn, wholePatrick GARY [facility]10-02-2012influenza virus vaccine, whole virusFaisal Dasilva MD Work Phone: [facility] HospitalOjpsoi75-49-8184hjswbyfvt, wholePatrick GARY [facility]09-01-2011influenza nasal, unspecified formulationFaisal Dasilva MD Work Phone: [facility] HospitalJdxiok91-46-9427cxegfspre virus vaccine, unspecified formulationMindy Chantelle PA-C Work Phone: [facility] HospitalEsliii75-28-4486oeeipyzkhzkt vaccine, unspecified formulationFaisal Dasilva MD Work Phone: [facility] HospitalAaymux03-66-9011glntcpegk nasal, unspecified formulationFaisal Dasilva MD Work Phone: [facility] HospitalAmnpjv72-71-2314sjxtxiyge virus vaccine, unspecified formulationMindy Chantelle PA-C Work Phone: [facility] HospitalAcnpej70-68-4810csuqataii nasal, unspecified formulationFaisal Dasilva MD Work Phone: [facility] HospitalIrlpwi23-00-9683twrwrloud virus vaccine, unspecified formulationMindy Chantelle PA-C Work Phone: [facility] Payers DatePayer CategoryPayerPolicy [id number] Health [id number] [id number] 2010Medicare [id number] [id number]. [id number] 2.0.1.400191.3.57[id number] 2.840.1.822308.3.57[id number] 2.840.1.034427.3.57[id number] 2.0.1.535928.3.57[id number] 2.840.1.539776.3.57[id number] 2.0.1.678311.3.57[id number] 2.840.1.343539.3.57[id number] 2.840.1.681377.3.57[id number] 2.840.1.82[id number] 2.840.1.419395.3.579.2.531 [id number] 2.16840.1.2[id number] 2.16840.1.989953.3.579.2.531 Social History DateTypeDetailFacilityStart: 08-07-2022 End: 13-19-8088Fuhncnf smoking statusNever smoked tobacco (finding)[facility] CenterueStart: 70-47-8955Hposske smoking statusNeverExecutive Urology of [facility] Medical CenterueStart: 08-24-2023 End: 81-94-2067Hbf Assigned At BirthMalGerman Hospitaltart: 08-24-2023 End: 02-46-9734Xbuoyql use and exposureSmokeless tobacco non-userAvita Health System Ontario Hospitaltart: 08-24-2023 End: 85-66-3446Ezrhqxh of Social functionAvita Health System Ontario Hospitaltart: 88-89-3559Lsy Assigned At BirthNot on fileAvita Health System Ontario Hospitaltart: 08-28-2023 End: 11-39-6757Gthjwzt intakeEx-drinker (finding)[facility] Hospitaltart: 13-70-5948Hxb Assigned At [facility] ClinicStart: 78-26-8140Pzunbd identityIdentifies as male gender (finding)[facility] smoking status NHISUnknown if ever smokedMarietta Osteopathic Clinic Work Phone: Start: 07-15-2024 End: 01-24-6309GmxSwjf (finding)[facility] CenterAre you now , , , , never or living with a partner? MarriedNOMS HealthcareHow often to you have a drink containing alcohol?NeverNOMS Healthcare(I/We) worried whether (my/our) food would run out before (I/we) got money to buy more.Never trueNOMS HealthcareStart: 05-30-7294Pxmbrva Comment Caffine: occassionallyNOMS HealthcareNEGATED: Highlighted rowStart: NINFHistory of tobacco usePassive smokerTrihealth [facility]hesda [facility] Hospital Medical Equipment Procedure CodeEquipment CodeEquipment Original TextEquipment IdentifierDates Stent Inlay [place] 6fr Taper [place] Green Polymer Phreecoat 28cm Ureteral - [id number]: 09-06-2023 Functional Status QgnvSfshrxtgagNtaniaRrtrfuuc04-62-7499Izzeijg Health Questionnaire 2 item (PHQ- 2) [Reported][facility] Lfpgvgruga58-37-4314Bwf you deaf, or do you have serious difficulty hearingNo 09/07/2023 1:48 PM EDT Bal Garcia RN [facility] CenterVcjxiq04-71-4481Lvk you blind, or do you have serious difficulty seeing, even when wearing glassesNo 09/07/2023 1:48 PM EDT Bal Garcia RN [facility]05-03-2024Do you have serious difficulty walking or climbing stairsNo 09/07/2023 1:48 PM EDT Bal Garcia RN NoCLancaster Municipal HospitalYmgtvv85-77-8730Re you have difficulty dressing or bathingNo 09/07/2023 1:48 PM EDT Bal Garcia RN [facility] CenterSpcitq77-14-9992Vmrzsud of a physical, mental, or emotional condition, do you have difficulty doing errands alone such as visiting a physician's office or shoppingNo 09/07/2023 1:48 PM EDT Bal Garcia RN [facility] CampusNsylvd58-31-0443Cyxdqnusdx StatusN/AExec[facility]04-03-2023Functional StatusN/AExec[facility] Mental Status GjmyGvanphlhjlPergieFhcawyqf63-75-2689Udpwnft of a physical, mental, or emotional condition, do you have serious difficulty concentrating, remembering, or making decisionsNo 09/07/2023 1:48 PM EDT Bal Garcia RN [facility] Clinical Notes 08-07-2022 to 02-27-2025 Note Date & NjagBlkdXnuerwhz94-84-8817 NoteHNO ID: [id number] Author: ALEN NORTON RN Service: ? Author Type: Registered Nurse Type: Procedures Filed: 02/27/2025 12:34 Note Text: UNIVERSAL PROTOCOL / SAFETY CHECKLIST Procedure to be Performed: cystoscopy Sign In: A Moment of CARE was completed. Appropriate PPE (Personal Protective Equipment) worn by all providers involved with the procedure. Special equipment not required. Patient/Surrogate Stated/Verified: Patient name, Date of , Relevant allergies, and The intended procedure Time Out: Relevant labs, photos, and/or imaging studies have been reviewed. Intended patient and procedure match the source document(s) (e.g. consent, HANDP, associated studies [imaging, pathology]) match the intended patient and procedure. Consent obtained and matches the intended procedure. Yes. Correct side/site has been marked and visible. Medications required for this procedure are verified. Fire risk assessed and interventions discussed. Implants: are not applicable. Sign Out: Specimens are all correctly labeled and sent. All instruments, equipment, possible retained foreign bodies are accounted for. Yes. The post-procedure plan of care has been communicated to the patient or surrogate. HANK Roque, [facility]10-24-2025 NoteHNO ID: [id number] Author: ABHISHEK DURAN MD Service: ? Author Type: Physician Type: Progress Notes Filed: 02/27/2025 12:34 Note Text: CC: Bladder cancer The patient [...] perivesical fat s/p partial cystectomy on 09/06/2023. TURBT 02/18/2024 Bladder mucosa with mixed acute and chronic inflammation and reactive changes, He is Presenting for surveillance cystoscopy. He doesn't have any gross hematuria Previous patient of Dr. Will: The patient was on chemotherapy with cisplatin plus gemcitabine 2 weeks on [address] Dasilva started 11/05/2023. CT Urogram 10/28/2024: 1. Asymmetric thickening of the right lateral [...] metastatic disease in the abdomen or pelvis. CT Abd/Chest 06/04/2024- Right lateral bladder wall [...] fat. - Margins are negative for tumor. M.DRodger's HOPS NOTE/ UNIVERSAL PROTOCOL/ SAFETY CHECKLIST Sign [...] was discussed with the patient or authorized field marketing representative. The patient or authorized field marketing representative has agreed to proceed with the sensitive examination. Cystoscopy -see below Urethra - Normal Prostate: Mild lateral lobes VN: open Urothelium: Cloudy urine which made the cystoscopy limited. No obvious papillary tumor seen or erythema Trabeculation: Moderate Inflammation: mild Ureteral Orifices: Normal, clear efflux bilaterally Trigone: Normal Preoperative diagnosis: History of bladder cancer Postoperative diagnosis: Same Procedure: Flexible cystoscopy Surgeon: Abhishek Duran MD Anesthesia: Lidocaine urojet Procedure: The patient was [...] see above Complications: None EBL: None Disposition: 79-year-old gentleman with a history of invasive bladder cancer and a diverticulum. Received chemotherapy. CT scan done in October did show some thick (more content not included)...[facility]10-24-2025 NoteHNO ID: [id number] Author: ALEN NORTON RN Service: ? Author Type: Registered Nurse Type: Progress Notes Filed: 02/27/2025 12:34 Note Text: PROCEDURE NURSE ASSESSMENT Patient ID with two(2)identifiers verified by: Alen Norton RN Procedure Indication: Cystoscopy February 27, 2025, Time In: 1130 Consent signed:Yes Back Office UA obtained: no Antibiotic given: Yes Heart valve replacement: No Joint replacement: No (Please inform provider if either above replacements were within the last 2 years) Patient Prep: Betadine Scrub to perineum and placement of Sterile Drape. COMPLETED UNIVERSAL PROTOCOL / SAFETY CHECKLIST Procedure to be performed: Cystoscopy Sign in Communication: Completed Time Out: Team Confirms the Correct Patient, Correct Procedure, Correct Site and Site Marking, Correct Position (if applicable) Sign Out Discussion: Completed Instruction sheet given and reviewed and patient verbalizes understanding: yes Alen Norton [facility]10-[facility] Telephone encounter Note * Telephone Encounter - Luiz Robertson - 02/11/2025 11:58 AM EDT The Coreg he picked up was changed to 3.125 mg - he is making sure that was changed by provider andhe was to start taking that dosage . Please give him a call and let him know for sure - estephanie Pelaez [phone] [facility] CareLefgrmdaji23-17-9684 Miscellaneous Notes* Telephone Encounter - Luiz Marcelo - 02/11/2025 11:58 AM EDT The Coreg he picked up was changed to 3.125 mg - he is making sure that was changed by provider andhe was to start taking that dosage . Please give him a call and let him know for sure - estephanie Pelaez [phone] documented in this encounterSSM Health CareZrsowjupfk78-19-3949 History of Present illness Narrative* Tanesha Casiano NP - 02/05/2025 9:30 AM EDT Images from the original note were not included. Subjective ?Quick Links Last Note in Specialty Snapshot Edit RFV/CC Edit Screenings Current Meds Patient ID: Jolly Sierra is a 79 y.o. male who presents for Medicare Annual Wellness Visit Subsequent. Over the past 2 weeks, how often have you been bothered by any of the following problems? Little interest or pleasure in doing things: Not at all Feeling down, depressed, or hopeless: Not at all Patient Health Questionnaire-2 Score: 0 Over the past 2 weeks, how often have you been bothered by any of the following problems? Trouble falling or staying asleep, or sleeping too much: Not at all Feeling tired or having little energy: Several days Poor appetite or overeating: Not at all Feeling bad about yourself - or that you are a failure or have let yourself or your family down: Not at all Trouble concentrating on things, such as reading the newspaper or watching television: Not at all Moving or speaking so slowly that other people could have noticed? Or the opposite - being so fidgety or restless that you have been moving around a lot more than usual.: Not at all Thoughts that you would be better off or hurting yourself in some way: Not at all Patient Health Questionnaire-9 Score: 1 Martinez Fall Risk History of Falling, Immediate or Within 3 Months: No Secondary Diagnosis: No Ambulatory Aid: Walks without aid/bedrest/nurse assist Intravenous Therapy/Heparin Lock: No Gait/Transferring: Normal/bedrest/immobile Mental Status: Oriented to own ability Martinez Fall Risk Score: 0 Health Risk Assessment Form Do you need help eating, bathing, using the toilet, dressing, or getting around your home?: No Can you prepare your own meals?: Yes Can you do your own housework without help?: Yes Can you shop for groceries or clothes without help?: Yes Do you exercise for about 20 minutes 3 or more days a week?: No How confident are you that you can control and manage most of your health problems?: Very confident Can you mange your money, credit cards and accounts, pay bills and taxes?: Yes Vision Screening: Yes, no gross abnormalities Hearing Screening: Not done Cognitive Screening Three Word Registration: Curt Rayo, Finger Clock Drawing: Normal Clock - 2 Three Word Recall: All 3 words correct - 3 Total Score (0-5 Points): 5 Pain Assessment Pain Score: 5 - Moderate pain History of Present Illness The patient is a 79-year-old male who presents for evaluation of hypertension, hyperlipidemia, prediabetes, heart failure, and arthritis. He has been monitoring his blood pressure at home, noting that it fluctuates. For instance, yesterday it was recorded as 152/72 at 9:34 AM and 153/76 at 2:58 PM. He mentions that these readings were taken after periods of activity. He expresses concern about the potential side effects of lisinopril, particularly whether it might cause drowsiness or reduce his activity level. He prefers to minimize his medication intake. He is currently on spironolactone. He has a history of high cholesterol and was previously on medication for this condition. He is uncertain about his ability to increase his physical activity but reports that his closely monitors his diet. He has a scheduled appointment with [facility] next [facility] for an eye exam. He has undergone three colonoscopies in the past and had a PSA test last year. He has a living will and healthcare power of employee benefits attorney in place. He reports no chest pain, pressure, or shortness of breath. He also reports noleg swelling since his chemotherapy treatment. He has noticed a decline in his short-term memory, although he can still recall long-term events. He does not experience any difficulty remembering where he places items such as keys. He has arthritis in his left shoulder, which causes him some discomfort. He also wears a knee brace. The arthritis dates back to 1964. He avoids lifting his arm too high but does not consider it a significant handicap. He believes the condition may be hereditary, as his mother had similar issues. SOCIAL HISTORY He does not smoke or consume alcohol. FAMILY HISTORY His mother had arthritis. MEDICATIONS Current: Spironolactone, anastrozole. Past: Lisinopril. IMMUNIZATIONS He has received his influenza vaccine and all pneumonia vaccines. ?Quick Review Review Full History Edit History Meds - sacubitril-valsartan (Entresto) 24-26 MG [...] results to support your medical decision making. Temp 97.3 F Wt 194 lb 6.4 oz BMI 28.71 kg/m Physical Exam Physical Exam Lungs are clear. Extra beats noted in the heart. Vital Signs Blood pressure was 152/72 at 9:34 AM and 153/76 at 2:58 PM yesterday. ?Quick Links Full Problem List Cardiology Hypertension Assessment & Plan Mixed hyperlipidemia Orders: Lipid panel; Future Prediabetes Orders: Hemoglobin A1c; Future Comprehensive metabolic panel; Future Chronic heart failure, unspecified heart failure type (HCC) Orders: Echocardiogram 2D complete; Future ECG 12 lead; Future carvedilol (Coreg) 12.5 MG tablet; Take 1 tablet (12.5 mg) by mouth in the morning and 1 tablet (12.5 mg) in the evening. Take with meals. Comprehensive metabolic panel; Future Primary hypertension Orders: carvedilol (Coreg) 12.5 MG tablet; Take 1 tablet (12.5 mg) by mouth in the morning and 1 tablet (12.5 mg) in the evening. Take with meals. Comprehensive metabolic panel; Future Assessment & Plan 1. Hypertension. His blood pressure readings have been inconsistent, with some elevated values noted at home (e.g., 152/72 and 153/76). Given his history of heart disease, it is crucial to manage his blood pressure effectively to mitigate the risk of stroke and kidney damage. A low dose of coreg will be initiated to help achieve more consistent blood pressure control and will be beneficial for his heart failure as well.. The prescription will be sent to the [facility]. He is advised to continue monitoring his blood pressure at home. 2. Hyperlipidemia. His lipid levels are slightly elevated but not alarming. Considering his other health conditions, including hypertension, pre-diabetes,cancer, and heart disease, he is at an increased risk for long-term complications. Lifestyle modifications, including regular exercise and a balanced diet, will be e mphasized over the next 3 months as he does not want to take another pill at this time unless necessary. Recommended adherence to a Mediterranean or DASH-style diet emphasizing increased fruits, vegetables, whole grains, legumes, nuts, and lean proteins (especially fish), while limiting saturated and trans fats, sodium (<2,300 mg/day, ideally <1,500 mg/day), added sugars, and refined carbohydrates. Advise at least 150 minutes of moderate-intensity aerobic exercise weekly, muscle- strengthening activities =2 days/week, and daily movement with reduced sedentary time. Counseled on maintaining a healthy BMI and waist circumference, with realistic weight loss goals (5-10% of body weight if overweight), and suggest tracking tools. Encouraged stress reduction techniques and 7-9 hours of quality sleep nightly. Plan to reassess lifestyle modifications at the next visit along with repeat of lipids. If there is an upward trend, further discussion regarding medication will be necessary- he is agreeable to this plan. 3. Prediabetes. His hemoglobin A1c level is 6.1, indicating prediabetes. He is advised to maintain a healthy diet and regular exercise regimen. Written information on prediabetes management was provided for him to review with his . His A1c level will be rechecked in 3 months. 4. Heart failure. An EKG will be performed today. An updated echocardiogram will be ordered to monitor his heart failure status. He denies any shortness of breath, leg swelling, or chest pain/pressure. He is on Entresto as well as Spirolactone. Added Coreg for BP management although this will also be helpful for hisheart failure. 5. Arthritis. He reports arthritis in his left shoulder and wears a knee brace. He declines physical therapy at this time. 6. Short-term memory loss. He reports some short-term memory issues but no significant impact on daily life. This will be monitored. 7. Health maintenance. He has received his influenza vaccine and all pneumonia vaccines. Colon cancer screening is not required at this time. A PSA test will be conducted during his next visit in a few months with his other labs including A1C, Lipids, and CMP. Follow-up The patient will follow up in 3 months, he will continue to follow with his oncology team in [place] as scheduled. documented in this encounterSSM Health [id number] History of Present illness Narrative* Tanesha Casiano NP - 01/08/2025 10:00 AM EDT Images from the original note were not [...] as well as a recent history of bladderand cancer that he is following with [facility] closely for. He had surgery in 2023 to removetumors. He also has thyroid nodules and is following with Dr. Borja (ENT) for further evaluation. [facility] [place] [facility], he gets his meds from there and sees them 1 x yearly. He does not have any specific concerns today. The only medication heis currently taking is his Enestro, he is not sure why he isn't taking his other medications. He ismarried, lives in [place]. Does not drink alcohol, smoker (never), or [...] (HCC) Continue to follow with team at [facility] for issues related to bladder cancer. Stage 3b chronic kidney disease ([facility]) Continue to monitor kidney function. Will repeat CMP at next visit. Check A1C as glucose was elevated. Hyperlipidemia, unspecified hyperlipidemia type Multiple thyroid nodules Agent orange exposure Assessment & Plan 1. Hypertension. His blood pressure readings have been inconsistent, with some measurements in the range of 150s/90sand others around 130s. He is currently on Entresto 24/26 mg twice daily for heart failure. He is advised to continue monitoring his blood pressure at home. An EKG has been ordered for further evaluation. A prescription for spironolactone 50 mg has been provided to the [place] pharmacy which should effec tively decrease his BP. Will follow at next [...] be ordered to assess his current cholesterol levels.Depending on the results, a statin or other cholesterol- lowering medication may be initiated. 4. Chronic kidney disease. Continue to monitor kidney function. Will repeat CMP at next visit. Check A1C as glucose was elevated. Follow-up Continue to follow with [facility] for issues related to bladder cancer. Continue to follow with ENT regarding thyroid nodules- last thyroid labs were normal and it appearsthat he had his thyroid nodules needle biopsied in July 2024 and the pathology was non-diagnostic for cancer. Return to office in 1 month for recheck of blood pressure and review of labs. If A1C is elevated weneed to discuss diabetic care. We will also need a repeat check on kidney function, potassium, and an echocardiogram order if one isn't up to date from the past 2 years. documented in this encounterSSM Health [id number] Telephone encounter Note* Telephone Encounter - Mukesh Donohue - 01/01/2025 9:27 AM EDT Patient coming in for lab only 01/08/25 with no orders. Please review and place needed labs. Thank you, Lindsey Donohue MLT [facility]08-28-2025 Miscellaneous Notes* Telephone Encounter - Mukesh Donohue - 01/01/2025 9:27 AM EDT Patient coming in for lab only 01/08/25 with no orders. Please review and place needed labs. Thank you, Lindsey Donohue MLT documented in this encounterTrihealth Bethesda [facility]08-11-2025 Telephone encounter Note * Telephone Encounter - Jose Martin Hillman APRN.BILLY - 12/15/2024 1:11 PM EDT Spoke with patient. All in agreement with plan. Jose Martin Gonzalez APRN.BILLY [facility] Work Phone: [phone] Miscellaneous Notes* Telephone Encounter - Jose Martin Hillman APRN.CNP - 12/15/2024 1:11 PM EDT Spoke with patient. All in agreement with plan. Jose Martin Gonzalez APRN.CNP * Telephone Encounter - David Capellan RN - 12/15/2024 12:12 PM EDT Pt states he was here and saw Jose Martin. He was instructed to call his physician regarding hiselevated kidney functions. Pt states he spoke with his general practitioners office and they told him to increase his oral fluids so he's been working on this over the weekend. He wanted our office to be aware. David Capellan RN documented in this encounterTrihealth Bethes[facility]08-11-2025 Telephone encounter Note * Telephone Encounter - David Capellan RN - 12/15/2024 12:12 PM EDT Pt states he was here and saw Jose Martin. He was instructed to call his physician regarding hiselevated kidney functions. Pt states he spoke with his general practitioners office and they told him to increase his oral fluids so he's been working on this over the weekend. He wanted our office to be aware. David Capellan RN [facility] Work Phone: [phone]) [phone] NoteHNO ID: [id number] Author: JOSE MARTIN HILLMAN APRN.TRANSITION MANAGER Service: ? Author Type: Nurse Practitioner Type: [...] likely represent postsurgical changes, (more content not included)...[facility]07-28-2025 Telephone encounter Note* Telephone Encounter - Cori Ibarra MA - 12/01/2024 11:41 AM EDT Patient has an appt on 12/11/24. Would you like labs, if so place orders. Cori Oneill MA [facility]07-28-2025 Miscellaneous Notes* Telephone Encounter - Cori Ibarra MA - 12/01/2024 11:41 AM EDT Patient has an appt on 12/11/24. Would you like labs, if so place orders. Cori Oneill MA documented in this encounterTrihealth Bethesda [facility]07-28-2025 History of Present illness Narrative* Rubén Newman, - 12/01/2024 10:00 AM EDT Subjective Patient ID: Jolly Sierra is a 79 y.o. male who presents for Thyroid Nodule (FNA results) HPI This patient presents after needle biopsy of thyroid nodules bilateral Review of Systems States to be doing well. Not having any difficulties with pain, swallow difficulties, voice change.The rest of his review of systems is unchanged Objective ENT Physical Exam General Examination: General overview: Normal, age-appropriate, no evidence of distress Head: Normocephalic, atraumatic Eyes: Pupils are equally round and reactive to light and accommodation, extraocular muscles are intact Ears: External ear architecture within normal limits, ear canals are patent, tympanic membranes areintact. Nose: External nose unremarkable, nares patent, septum [...] 6 months Thyroid nodule documented in this encounterSSM Health [id number] Telephone encounter Note* Telephone Encounter - Dilcia Camargo - 11/25/2024 1:26 PM EDT Left voice message stating Dr. Will wanted patient to schedule cystoscopy in February. Scheduled patient with Dr. Duran on 02/26/25 @ 11:00 am at the [facility] office. Asked patient if he was going to follow up with a urologist in [facility] and to return call to office [facility]07-22-2025 Miscellaneous Notes* Telephone Encounter - Dilcia Camargo - 11/25/2024 1:26 PM EDT Left voice message stating Dr. Will wanted patient to schedule cystoscopy in February. Scheduled patient with Dr. Duran on 02/26/25 @ 11:00 am at the [facility] office. Asked patient if he was going to follow up with a urologist in [facility] and to return call to office documented in this encounterTrihealth [facility]hes[facility]07-14-2025 History of Present illness Narrative* Rubén Newman, - 11/17/2024 11:00 AM EDT Subjective Patient ID: Jolly Sierra is a [...] mouth every 6 (six) hours if needed, Disp:, Rfl: ramipril (Altace) 10 MG capsule, Take [...] limits, ear canals are patent, tympanic membranes areintact. Nose: External nose unremarkable, nares patent, septum [...] Nodule(s) to be biopsied have been identified utilizingultrasound. Each thyroid nodule measuring approximately 13- 15 mm in greatest dimension with extension below [...] his needle aspiration biopsies. documented in this encounterSSM Health [id number] History of Present illness Narrative* Dirk Vigil RT(R) - 10/28/2024 11:30 AM EDT Radiology Service Progress Note PATIENT NAME: Jolly Sierra DATE OF SERVICE: October 28, 2024 TIME: 10:37 AM PATIENT IDENTITY VERIFICATION COMPLETED USING TWO (2) IDENTIFIERS: Name and Date of confirmedby patient verbally and Name and Date of confirmed by identification band. FALL SCREENING: Has the patient had 2 falls in the last year or 1 fall with injury or currently using an Ambulatory Assistive Device (Walker, Cane, Wheelchair, Crutches, etc.)? No PATIENT GENDER DATA: Assigned male at PATIENT RELEVANT IMPLANT DATA REVIEWED: Not Applicable PATIENT PRESENTS WITH AN IMPLANTABLE OR ATTACHED TRANSFER KNITTER: No RADIOLOGY DEPARTMENT: CT; Exam(s) Completed: Urogram PERIPHERAL IV DATA: Site assessment: Clean,Dry and Intact, Site disposition Discontinued SIGNED BY: RT Amber(R) October 28, 2024 10:37 AM * Gladys Salcido RN - 10/28/2024 11:30 AM EDT Radiology Service Progress Note DATE OF SERVICE: [...] injury, the eGFRmay not accurately reflect actual GFR. P.O.C.T. RESULTS: N/A October 28, 2024 TREATMENT: N/A IV SITE: Ambulatory: A peripheral IV was started in the Left antecubital site with a Angio cath: 20gauge. IV SITE APPEARANCE: Clean,Dry and Intact SIGNATURE: Gladys Salcido RN PATIENT NAME: Jolly Sierra DATE: October 28, 2024 TIME: 10:27 AM documented in this encounterTrihealth Bethes[facility]06-24-2025 NoteHNO ID: [id number] Author: GLADYS SALCIDO RN Service: Nursing Author [...] Sierra DATE: October 28, 2024 TIME: 10:27 AMHeber Valley Medical [id number] NoteHNO ID: [id number] Author: DIRK VIGIL RT(R) Service: Radiology Author [...] PATIENT PRESENTS WITH AN IMPLANTABLE OR ATTACHED TRANSFER KNITTER: No RADIOLOGY DEPARTMENT: CT; Exam(s) Completed: Urogram PERIPHERAL IV DATA: Site assessment: Clean,Dry and Intact, Site disposition Discontinued SIGNED BY: Dirk Vigil RT(R) October 28, 2024 10:37 [facility] HospitalJzhrcsht49-33-4698 NoteHNO ID: [id number] Author: FAISAL DASILVA MD Service: ? Author [...] bladder, diverticulum, partial cystectomy: (more content not included)...[facility]05-07-2025 History of Present illness Narrative* Faisal Dasilva MD - 09/10/2024 8:09 AM EDT PATIENT NAME: Jolly Sierra DATE: 09/11/2024 PRIMARY [...] Take 1 tablet by mouth two times aday for 10 days. (Patient not taking: Reported on 09/11/2024) cephALEXin (KEFLEX) 500 mg capsule Take 1 capsule by mouth three times a day for 10 days. (Patient not taking: Reported on 09/11/2024) psyllium seed, with sugar, (METAMUCIL, SUGAR, ORAL) Take by mouth. (Patient not taking: Reported on09/11/2024) ondansetron (ZOFRAN) 8 mg tablet Take 1 [...] cold or heat intolerance, urinary frequency, urinary hesitancy,menorrhagia, or hematuria. PSYCH: Negative for anxiety, depression, [...] Repeat at 6 months. 06/18/2024 US Thyroid (Amber) Suspicious TR 4 nodule within the right [...] urinary bladder. On 09/06/2023 he underwent robotic bladderdiverticulectomy plus right pelvic lymph node dissection. Pathology [...] erythematous mucosa, biopsy benign. Restaging CT scans 06/04/2024revealed right lateral bladder wall thickening, otherwise unremarkable. [...] J Donaldson Jr, DO documented in this encounterTrihealth Bethes[facility]04-29-2025 Telephone encounter Note * Telephone Encounter - Amarilis Oh RN - 09/02/2024 9:43 AM EDT Patient is aware to start keflex for UTI per order of Dr Will. [facility]04-29-2025 Miscellaneous Notes* Telephone Encounter - Amarilis Oh RN - 09/02/2024 9:43 AM EDT Patient is aware to start keflex for UTI per order of Dr Will. documented in this encounterTrihealth Bethesda North Hospital04-24-2025 NoteHNO ID: [id number] Author: JASON WILL MD Service: ? Author [...] of a medical oncologist, Dr. Dasilva, in [place], and has completed treatment for a tumor [...] metastatic disease in the abdomen or pelvis. .[facility] NOTE/ UNIVERSAL PROTOCOL/ SAFETY CHECKLIST Sign In [...] was discussed with the patient or authorized field marketing representative. The patient or authorized field marketing representative has agreed to proceed with the [...] urojet Procedure: The moraima (more content not included)...[facility] HospitalDhbmprol94-72-0974 NoteHNO ID: [id number] Author: JESUS ALBERTO BAIRD MA Service: ? Author Type: Ships Equipment Engineer Type: Progress Notes Filed: 08/28/2024 14:02 Note [...] Education Session: None Instruction Provided To: Patient Surgical Orderly Present: not applicable Discipline: Nursing Learning Topic: SURVIVAL SKILLS: Complication Prevention Symptom Management Patient Evaluation: Verbalizes understanding: Yes Supplemental Material Given: Written Material Instructed By Jesus Alberto Baird MA In Department Urology .[facility] 08-18-2024 History of Present illness Narrative* Rubén Newman DO - 08/18/2024 9:45 AM EDT Subjective Patient ID: Jolly Sierra is a [...] limits, ear canals are patent, tympanic membranes areintact. Nose: External nose unremarkable, nares patent, septum [...] biopsy in 3 months documented in this encounterSSM Health [id number] Telephone encounter Note* Telephone Encounter - Noe Ibarra 08/13/2024 11:02 AM EDT Called patient and left voicemail informing them of rescheduled appointment with Dr. Will. [facility]04-09-2025 Miscellaneous Notes* Telephone Encounter - Noe Ibarra - 08/13/2024 11:02 AM EDT Called patient and left voicemail informing them of rescheduled appointment with Dr. Will. documented in this encounterTrihealth [facility]hes[facility]03-31-2025 History of Present illness Narrative* Rubén Newman, - 08/04/2024 11:00 AM EDT Subjective Patient ID: Jolly Sierra is a [...] limits, ear canals are patent, tympanic membranes areintact. Nose: External nose unremarkable, nares patent, septum [...] Nodule(s) to be biopsied have been identified utilizingultrasound. The patient is asked not to talk [...] sent for pathology. ThyroSeq specimens also submitted Pressureis applied to the area biopsy. The patient [...] thyroid functions are normal documented in this encounterSSM Health [id number] Telephone encounter Note* Telephone Encounter - Temitope Sousa - 07/07/2024 2:02 PM EST Spoke to [facility] patient is scheduled on 07/14 at 1030. [facility]03-03-2025 Miscellaneous Notes* Telephone Encounter - Temitope Sousa - 07/07/2024 2:02 PM EST Spoke to [facility] patient is scheduled on 07/14 at 1030. * Telephone Encounter - Temitope Sousa - 07/01/2024 1:10 PM EST Spoke to ENT office, not scheduled yet * Telephone Encounter - Temitope Sousa - 06/27/2024 9:16 AM EST Patient still not scheduled. They will call him. * Telephone Encounter - Temitope Sousa - 06/24/2024 9:01 AM EST Spoke to [place] at ENT, she claims they just got referral and will call patient. She states it will take a minute. She sounded bothered by my call. * Telephone Encounter - Temitope Sousa - 06/23/2024 10:02 AM EST Order received, office to call patient to schedule * Telephone Encounter - Mahi Oro - 06/20/2024 9:55 AM EST Records faxed to [facility]. * Telephone Encounter - Temitope Sousa - 06/20/2024 9:18 AM EST I faxed over the referral to [facility] ENT [phone] fax number * Telephone Encounter - Temitope Sousa - 06/20/2024 9:06 AM EST Saira Jb - could you please send records * Telephone Encounter - Donald Perez RN - 06/20/2024 8:38 AM EST Clerical: Please refer pt to Dr Newman for thyroid biopsy. Thanks! Donald Perez RN * Telephone Encounter - Donald Perez RN - 06/19/2024 4:30 PM EST Thyroid US done 06/18/24. Results recommend US-guided biopsy. Dr Dasilva would like pt to see ENT either through [facility] or locally (Dr Newman). Pt notified and agrees to local referral. BRM/RAJWINDER: Referral for ENT pended. Donald Perez RN documented in this encounterTrihealth Bethes[facility]02-25-2025 Telephone encounter Note * Telephone Encounter - Temtiope Sousa - 07/01/2024 1:10 PM EST Spoke to ENT office, not scheduled yet [facility]02-21-2025 Telephone encounter Note* Telephone Encounter - Temitope Sousa - 06/27/2024 9:16 AM EST Patient still not scheduled. They will call him. [facility]02-18-2025 Telephone encounter Note* Telephone Encounter - Temitope Sousa - 06/24/2024 9:01 AM EST Spoke to [place] at ENT, she claims they just got referral and will call patient. She states it will take a minute. She sounded bothered by my call. [facility]02-17-2025 Telephone encounter Note* Telephone Encounter - Temitope Sousa - 06/23/2024 10:02 AM EST Order received, office to call patient to schedule [facility]02-14-2025 Telephone encounter Note* [facility] - 06/20/2024 9:55 AM EST Records faxed to [facility]. [facility]02-14-2025 Telephone encounter Note* Telephone Encounter - Temitope Sousa - 06/20/2024 9:18 AM EST I faxed over the referral to [facility] ENT [phone] fax number [facility]02-14-2025 Telephone encounter Note* Telephone Encounter - Temitope Sousa - 06/20/2024 9:06 AM EST Saira Muhammad - could you please send records [facility]02-14-2025 Telephone encounter Note* Telephone Encounter - Donald Perez RN - 06/20/2024 8:38 AM EST Clerical: Please refer pt to Dr Newman for thyroid biopsy. Thanks! Donald Perez RN [facility]02-13-2025 Telephone encounter Note* Telephone Encounter - Donald Perez RN - 06/19/2024 4:30 PM EST Thyroid US done 06/18/24. Results recommend US-guided biopsy. Dr Dasilva would like pt to see ENT either through [facility] or locally (Dr Newman). Pt notified and agrees to local referral. BRM/RAJWINDER: Referral for ENT pended. Donald Perez RN [facility]02-05-2025 NoteHNO ID: [id number] Author: FAISAL DASILVA MD Service: ? Author [...] No thoracic lymphadenopathy. 1 (more content not included)...[facility]02-05-2025 History of Present illness Narrative* Faisal Dasilva MD - 06/11/2024 8:20 AM EST PATIENT NAME: Jolly Sierra DATE: 06/12/2024 PRIMARY [...] cold or heat intolerance, urinary frequency, urinary hesitancy,menorrhagia, or hematuria. PSYCH: Negative for anxiety, depression, [...] urinary bladder. On 09/06/2023 he underwent robotic bladderdiverticulectomy plus right pelvic lymph node dissection. Pathology [...] erythematous mucosa, biopsy benign. Restaging CT scans 06/04/2024revealed right lateral bladder wall thickening, otherwise unremarkable. Currently the patient has no evidence of disease. However, recent scans revealed right bladder wallthickening of unclear etiology. He is scheduled undergo [...] J Donaldson Jr, DO documented in this encounterTrihealth Bethesda [facility]01-29-2025 History of Present illness Narrative* Donald Robertson, RT(R) - 06/04/2024 10:15 AM EST RADIOLOGY SERVICE PROGRESS NOTE SERVICE DATE: 06/04/2024 [...] PATIENT PRESENTS WITH AN IMPLANTABLE OR ATTACHED TRANSFER KNITTER: No CREATININE: Creatinine Date Value Ref Range [...] injury, the eGFRmay not accurately reflect actual GFR. P.O.C.T. RESULTS: POC done: Yes, See Lab Tab June 04, [address] PERFORMED: Yes. RADIOLOGIST NOTIFIED?: No CONTRAST ALLERGY: NO. PREMEDICATED: Not applicable CONTRAST: IV 100 ml IV contrast (350) given and Oral Omnipaque 240 DIABETIC PATIENT: Not applicable IV SITE: Ambulatory: A peripheral IV was started in the Left antecubital site with a Angio cath: 20gauge. POST EXAM PIV STATUS: Discontinued PROCEDURE TYPE: CT Chest/Abdomen/Pelvis with contrast PATIENT DISCHARGED TO: Ambulatory patient, left [place] department area. Is this a therapy: No A Diagnostic radioactive procedure has taken place, with no further precautions necessary other than routine body substance precautions. More information regarding radiation safety can be found usingthis link: [email or web address] SIGNATURE: [email or web address] Monahan) PATIENT NAME: Jolly Sierra DATE: June 04, 2024 TIME: 10:48 AM PAGER/CONTACT #: documented in this encounterTrihealth Bethesda [facility] Hospital01-29-2025 NoteHNO ID: [id number] Author: DONALD ROBERTSON RT (R) Service: ? Author Type: Technologist Type: Progress [...] PATIENT PRESENTS WITH AN IMPLANTABLE OR ATTACHED TRANSFER KNITTER: No CREATININE: Creatinine Date Value Ref Range [...] contrast PATIENT DISCHARGED TO: Ambulatory patient, left [place] department area. Is this a therapy: No A Diagnostic radioactive procedure has taken place, with no further precautions necessary other than routine body substance precautions. More information regarding radiation safety can be found using this link: [email or web address] SIGNATURE: RT Hero(R) PATIENT NAME: Jolly Sierra DATE: June 04, 2024 TIME: 10:48 AM PAGER/CONTACT #:[facility]12-23-2024 Telephone encounter Note* Telephone Encounter - Dilcia Cabrera RN - 04/28/2024 9:21 AM EST Please sign pended labs for 3 month f/u if agreeable-will draw with CT 1 week prior Thank You! Dilcia Cabrera RN [facility]12-23-2024 Miscellaneous Notes* Telephone Encounter - Dilcia Cabrera RN - 04/28/2024 9:21 AM EST Please sign pended labs for 3 month f/u if agreeable-will draw with CT 1 week prior Thank You! Dilcia Cabrera RN documented in this encounterTrihealth Bethesda North Hospital11-06-2024 Telephone encounter Note * Telephone Encounter - Lizzie Perez RN - 03/12/2024 10:09 AM EST notified and verbalized understanding. She will pass the information along to her . Vivian Perez RN [facility]11-06-2024 Telephone encounter Note* Telephone Encounter - Lizzie Perez RN - 03/12/2024 10:09 AM EST ----- Message from Faisal Dasilva MD sent at 03/11/2024 4:07 PM EST ----- Please inform the patient/ of his test results from today. Creatinine still slightly elevated at 1.38. eGFR 52. Would encourage continuation of fluids is muchas possible. Blood sugar slightly elevated at 155. We will continue as planned. [facility]11-06-2024 Miscellaneous Notes* Telephone Encounter - Lizzie Perez RN - 03/12/2024 10:09 AM EST notified and verbalized understanding. She will pass the information along to her . Vivian Perez RN * Telephone Encounter - Lizzie Perez RN - 03/12/2024 10:09 AM EST ----- Message from Faisal Dasilva MD sent at 03/11/2024 4:07 PM EST ----- Please inform the patient/ of his test results from today. Creatinine still slightly elevated at 1.38. eGFR 52. Would encourage continuation of fluids is muchas possible. Blood sugar slightly elevated at 155. We will continue as planned. documented in this encounterTrihealth [facility]11-04-[facility] History of Present illness Narrative* Faisal Dasilva MD - 03/10/2024 7:26 PM EST PATIENT NAME: Jolly Sierra DATE: 03/11/2024 PRIMARY [...] cold or heat intolerance, urinary frequency, urinary hesitancy,menorrhagia, or hematuria. PSYCH: Negative for anxiety, depression, [...] urinary bladder. On 09/06/2023 he underwent robotic bladderdiverticulectomy plus right pelvic lymph node dissection. Pathology [...] mucosa, biopsy benign. Currently the patient has noevidence of disease. At this time we will [...] J Donaldson Jr, DO documented in this encounterTrihealth [facility]10-15-2024 Telephone encounter Note * Telephone Encounter - Jason Will MD - 02/19/2024 2:29 PM EDT FINAL DIAGNOSIS A. Urinary bladder,biopsy: - Bladder mucosa with mixed acute and chronic inflammation and reactive changes. - No muscularis propria identified. called and gave path recommend FU cysto in 6 mo Jason Will MD [facility] Work Phone: [phone]) [phone] Miscellaneous Notes* Telephone Encounter - Jason Will MD - 02/19/2024 2:29 PM EDT FINAL DIAGNOSIS A. Urinary bladder,biopsy: - Bladder mucosa with mixed acute and chronic inflammation and reactive changes. - No muscularis propria identified. called and gave path recommend FU cysto in 6 mo Jason Will MD documented in this encounterTrihealth [facility]10-15-2024 Telephone encounter Note * Telephone Encounter - Mahi Hansen RN - 02/19/2024 10:18 AM EDT Patient had Transurethral resection of bladder tumor [...] questions at this time. Understands to call theoffice with further concerns/questions. Mahi Hansen RN [facility]10-15-2024 Miscellaneous Notes* Telephone Encounter - Mahi Hansen RN - 02/19/2024 10:18 AM EDT Patient had Transurethral resection of bladder tumor [...] questions at this time. Understands to call theoffice with further concerns/questions. 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 Staffing Anesthesiologist: Darren Reyes DO NUCLEAR PROCESS ENGINEER: Deidra Fierro APRN.NUCLEAR PROCESS ENGINEER Performed by: NUCLEAR PROCESS ENGINEER Indications and Patient Condition Indications for airway management: anesthesia Preoxygenated: yes anesthesia circuit Method: asleep Difficult Mask: No Final Airway Details Final airway type: supraglottic airway Number of attempts at approach: 1 Final Supraglottic Airway: IGEL Size 4 Seal Adequate: yes Airway not difficult SIGNATURE: Deidra Fierro APRN.CRNA PATIENT NAME: Jolly Sierra DATE: February 18, 2024 TIME: 9:49 AM CSN: [id number] History of Present illness Narrative* Marlee Lockhart PA-C - 02/12/2024 9:30 AM EDT PATIENT NAME: Jolly Sierra DATE: 02/12/2024 PRIMARY [...] patient's last infusion on 01/14 he received gemcitabineand cisplatin after not feeling well the week [...] cold or heat intolerance, urinary frequency, urinary hesitancy,menorrhagia, or hematuria. PSYCH: Negative for anxiety, depression, [...] floor. CT urogram 09/03/2023 confirmed a large diverticulumarising from the right posterior wall of the urinary bladder. On 09/06/2023 he underwent robotic bladder diverticulectomy plus right pelvic lymph node dissection. Pathology revealed high-grade urothelia l carcinoma, greatest dimension 5 cm, with invasion [...] 4 on 01/15/2024. Currently doing well with mildrenal dysfunction on labs today. At this time the patient has improved from chemotherapy. He does, however, have mild renal dysfunction that will need monitored. His anemia is improving as well. He will undergo cystoscopy with urology on 02/18/2024 as scheduled and see us back in 4 weeks for repeat labs and follow-up. At that timewe will discuss surveillance and imaging. 2. Neurogenic [...] and supplement with IV iron if indicated. LIOR SewellS2 The above patient was seen and examined by myself along with the student. Changes were made to the note as appropriate. Marlee Lockhart PA-C CC: Dr. Lalito Roman spent a total of 20 minutes on the date of the service which included preparing to see the patient, [id number] patient care, completing clinical documentation, performing a medically appropriate examination, counseling and educating the patient/family/caregiver, ordering medications, tests, or p rocedures, independently interpreting results (not separately reported), communicating results to the patient/family/caregiver, and care coordination (not separately reported). documented in this encounterTrihealth [facility]10-07-2024 Telephone encounter Note * Telephone Encounter - Amarilis Oh RN - 02/11/2024 3:50 PM EDT Procedure: TURBT Physician: Dr. Jason Will Location: [facility]: [phone] Date & Time: 02/18/2024 MEDICAL CLEARANCE: No CARDIAC CLEARANCE: No PRE ADMISSION TESTIN01/28/24 AT: [place] THE FOLLOWING WAS EVALUATED Motivation To Learn: [...] days after surgery or procedure. Some common medicationsthat contain ASPIRIN or act like Aspirin are TO BE AVOIDED: This is a list of the medications you should avoid: Advill Celebrex Motrin Aggrenox Clinoril Naprosyn(naproxen) Agrylin NSAIDS Pepto-Bismol Aleve Ecotrin Persantine Cyndi-Ardmore Excedrin Plaquenil Anacin Heparin Plavix Ascriptin Herbals [...] - IV pain medication after surgery, IV DAIRY CLERK if ordered by MD, discharged home with aprescription for PO pain medication, pain management after surgery, side effects of pain medication(including constipation, dizziness, drowsiness, and medication interactions). DVT PROPHYLAXIS - Early ambulation, SCDs, injectable anticoagulants (heparin, lovenox, etc) RESPIRATORY - Incentive spirometer, coughing/deep breathing exercises, ambulation. RETURN TO WORK - As directed by physician, please send any FMLA papers to physician's executive secretary. SYMPTOMS TO NOTIFY MD - Fever, chills, nausea, vomiting, increased or severe pain, heavy bleeding, foul smelling drainage, pain or swelling in extremities. URGENT SYMPTOMS - Call 911 or go to ER if any shortness of breath, difficulty breathing, or chest pain. HOW TO CONTACT PHYSICIAN - Physician's office phone number given to patient, if after hours patientinstructed to call packing line operator and ask for the doctor control valve mechanic. Patient and family have phone number to call 24 hours/day. Patient Evaluation: Verbalizes understanding Patient and/or family express understanding of upcoming surgery and the operative process. Questions answered. Follow Up Plan: Follow up as needed Supplemental Material Given: Pre-operative teaching packet provided to the patient: INPATIENT/OUTPATIENT printed instructions; Post-operative instruction sheet, bowel prep instructionsheet For questions contact: Dr. Jason Will's office at [phone] Instructed By Amarilis Oh RN [facility]10-07-2024 Miscellaneous Notes* Telephone Encounter - Amarilis Oh RN - 02/11/2024 3:50 PM EDT Procedure: TURBT Physician: Dr. Jason Will Location: [facility]: [phone] Date & Time: 02/18/2024 MEDICAL CLEARANCE: No CARDIAC CLEARANCE: No PRE ADMISSION TESTIN01/28/24 AT: [place] THE FOLLOWING WAS EVALUATED Motivation To Learn: [...] days after surgery or procedure. Some common medicationsthat contain ASPIRIN or act like Aspirin are TO BE AVOIDED: This is a list of the medications you should avoid: Advill Celebrex Motrin Aggrenox Clinoril Naprosyn(naproxen) Agrylin NSAIDS Pepto-Bismol Aleve Ecotrin Persantine Cyndi-Ardmore Excedrin Plaquenil Anacin Heparin Plavix Ascriptin Herbals [...] - IV pain medication after surgery, IV DAIRY CLERK if ordered by MD, discharged home with aprescription for PO pain medication, pain management after surgery, side effects of pain medication(including constipation, dizziness, drowsiness, and medication interactions). DVT PROPHYLAXIS - Early ambulation, SCDs, injectable anticoagulants (heparin, lovenox, etc) RESPIRATORY - Incentive spirometer, coughing/deep breathing exercises, ambulation. RETURN TO WORK - As directed by physician, please send any FMLA papers to physician's executive secretary. SYMPTOMS TO NOTIFY MD - Fever, chills, nausea, vomiting, increased or severe pain, heavy bleeding, foul smelling drainage, pain or swelling in extremities. URGENT SYMPTOMS - Call 911 or go to ER if any shortness of breath, difficulty breathing, or chest pain. HOW TO CONTACT PHYSICIAN - Physician's office phone number given to patient, if after hours patientinstructed to call packing line operator and ask for the doctor control valve mechanic. Patient and family have phone number to call 24 hours/day. Patient Evaluation: Verbalizes understanding Patient and/or family express understanding of upcoming surgery and the operative process. Questions answered. Follow Up Plan: Follow up as needed Supplemental Material Given: Pre-operative teaching packet provided to the patient: INPATIENT/OUTPATIENT printed instructions; Post-operative instruction sheet, bowel prep instructionsheet For questions contact: Dr. Jason Will's office at [phone] Instructed By Amarilis Oh RN * Telephone Encounter - Amarilis Oh RN - 02/11/2024 3:16 PM EDT LVM for patient to francia back to this office for pre op instructions. Will await return call. Patient did call back and LVM. A return call was made to the patient and LVM to call back to this office. Will await return call. documented in this encounterTrihealth [facility]10-07-2024 Telephone encounter Note * Telephone Encounter - Amarilis Oh RN - 02/11/2024 3:16 PM EDT LVM for patient to francia back to this office for pre op instructions. Will await return call. Patient did call back and LVM. A return call was made to the patient and LVM to call back to this office. Will await return call. [facility]10-03-2024 Telephone encounter Note* Telephone Encounter - Kiara Valles MA - 02/07/2024 9:[address] labs for appt on 02/11 if needed. Kiara Valles MA [facility]10-03-2024 Miscellaneous Notes* Telephone Encounter - Kiara Valles MA - 02/07/2024 9:[address] labs for appt on 02/11 if needed. Kiara Valles MA documented in this encounterTrihealth [facility]09-24-2024 Telephone encounter Note * Telephone Encounter - Bridget Slaughter APRN.CNP - 01/29/2024 2:25 PM EDT Bucky Dasilva, Will is scheduled for cystourethroscopy 02/18/2024. He is under your care for his history of bladder cancer including anemia. Please review 01/28/2024 CBC hgb/hct 28.5% , platelets 188 Requesting Optimization for above planned procedure from hematologic perspective. Bridget Slaughter APRN.CNP ONEPACC [facility]09-24-2024 Miscellaneous Notes* Telephone Encounter - Bridget Slaughter APRN.CNP - 01/29/2024 2:25 PM EDT Hi Erlin Duncan is scheduled for cystourethroscopy 02/18/2024. He is under your care for his history of bladder cancer including anemia. Please review 01/28/2024 CBC hgb/hct /28.5% , platelets 188 Requesting Optimization for above planned procedure from hematologic perspective. Bridget Slaughter APRN.CNP ONEMOCC documented in this encounterTrihealth Bethes[facility]09-23-2024 Instructions* Patient Instructions* Bridget Slaughter APRN.CNP - 01/28/2024 2:35 PM EDT PATIENT PREOPERATIVE INSTRUCTIONS Jason Will MD has scheduled you for your procedure at this surgery center: [facility]: [phone] --[address] [address]. Please check in on the1st floor at registration desk 6. Please read [...] Procedures: - YOU MUST HAVE A RESPONSIBLE INSTRUMENTAL TEACHER TAKE YOU HOME. A REAL ESTATE ACCOUNT EXECUTIVE OR AUDIT MGR CANNOT BE MADE A RESPONSIBLE INSTRUMENTAL TEACHER. - We recommend that a responsible person stays with you overnight to take care of you. - You cannot stay in a hotel alone after outpatient surgery. You will not be permitted to have yoursurgery, if you do not have someone to [...] Advance Directive, please fax a copy to [phone] or email to for it to be added to your chart. If you do not have an Advance Directive, you can find the appropriate form and more information at [email or web address]. We recommend that youcomplete the Advance Directive form found on the website and bring it with you the day of your surgery. It can be witnessed and scanned into your chart that day. documented in this encounterTrihealth [facility]hes[facility]09-23-2024 History and physical note * Bridget Slaughter APRN.CNP - 01/28/2024 2:20 PM EDT Images from the original note were not [...] present: no (MUSTACHE) Lip Bite Test: II Microretrognathia/Micronagthia/Recessed Chin: No DENTAL Dental findings: teeth intact. [...] COVID-19 original vaccine, age 12+ yr, monovalent ([employer]- [employer] - REYES TOP) Only the first 3 history entries have been loaded, but more history exists. CHIEF COMPLAINT: surgery HPI: Patient is a 78 year old male with Neoplasm of bladder that is recommended for surgery ; he iss/p robotic laparoscopic bladder surgery 09/06/2023, adjuvant chemotherapy that is completed. Neurogenic bladder, able to urinate some , performs ISC 4-5 times/day. He completed Keflex ATB TID treatment for UTI 01/27/2024, per Surgeon. He currently denies pain, dysuria or hematuria. REVIEW OF SYSTEMS: General: No weight loss, malaise or fevers. Neurological: No history of TIA's, stroke, CHAINSTITCH BINDER tumor, impaired sensorium, hemiplegia, paraplegia orquadraplegia. No neurological symptoms or problems. Respiratory: No [...] 404 QTC Calculation (Bazett) 399 Calculated P [place] 43 Calculated R [place] 63 Calculated T [place] 54 Impression SINUS BRADYCARDIA WITH SINUS ARRHYTHMIA WITH 1ST DEGREE AV BLOCK OTHERWISE NORMAL ECG Instructions Given to Patient: Instructions located in the after visit summary. Patient given verbal and written preop instructions and voices comprehension and compliance. SIGNATURE: Bridget Slaughter APRN.CNP PATIENT NAME: Jolly Sierra DATE: 01/28/2024 TIME: 2:25 PM [facility]09-23-2024 History and physical note* Bridget Slaughter APRN.CNP - 01/28/2024 2:20 PM EDT Images from the original note were not [...] present: no (MUSTACHE) Lip Bite Test: II Microretrognathia/Micronagthia/Recessed Chin: No DENTAL Dental findings: teeth intact. [...] Imm Admin: COVID-19 vaccine, age 12+ yr, 2023-24 season ([employer]) 02/01/2022 Imm Admin: COVID-19 vaccine, age 12+ yr, bivalent ([employer]) 08/22/2021 Imm Admin: COVID-19 original vaccine, age 12+ yr, monovalent ([employer] - REYES TOP) Only the first 3 history entries have been loaded, but more history exists. CHIEF COMPLAINT: surgery HPI: Patient is a 78 year old male with Neoplasm of bladder that is recommended for surgery ; he iss/p robotic laparoscopic bladder surgery 09/06/2023, adjuvant chemotherapy that is completed. Neurogenic bladder, able to urinate some , performs ISC 4-5 times/day. He completed Keflex ATB TID treatment for UTI 01/27/2024, per Surgeon. He currently denies pain, dysuria or hematuria. REVIEW OF SYSTEMS: General: No weight loss, malaise or fevers. Neurological: No history of TIA's, stroke, CHAINSTITCH BINDER tumor, impaired sensorium, hemiplegia, paraplegia orquadraplegia. No neurological symptoms or problems. Respiratory: No [...] 404 QTC Calculation (Bazett) 399 Calculated P [place] 43 Calculated R [place] 63 Calculated T [place] 54 Impression SINUS BRADYCARDIA WITH SINUS ARRHYTHMIA WITH 1ST DEGREE AV BLOCK OTHERWISE NORMAL ECG Instructions Given to Patient: Instructions located in the after visit summary. Patient given verbal and written preop instructions and voices comprehension and compliance. SIGNATURE: Bridget Slaughter APRN.CNP PATIENT NAME: Jolly Sierra DATE: 01/28/2024 TIME: 2:25 PM documented in this encounterTrihealth [facility]09-02-2024 History of Present illness Narrative* Faisal Dasilva MD - 01/07/2024 2:26 PM EDT PATIENT NAME: Jolly Sierra DATE: 01/08/2024 PRIMARY [...] cold or heat intolerance, urinary frequency, urinary hesitancy,menorrhagia, or hematuria. PSYCH: Negative for anxiety, depression, [...] floor. CT urogram 09/03/2023 confirmed a large diverticulumarising from the right posterior wall of the urinary bladder. On 09/06/2023 he underwent robotic bladder diverticulectomy plus right pelvic lymph node dissection. Pathology revealed high-grade urothelia l carcinoma, greatest dimension 5 cm, with invasion [...] for catheterization. However, he is experiencing increasing urinaryfrequency and urgency. He will discuss with [facility] [...] MD CC: Dr. Donaldson documented in this encounterTrihealth Bethes[facility]08-30-2024 History of Present illness Narrative* Jason Will MD - 01/04/2024 2:00 PM EDT HISTORY: Jolly Sierra is a 78 yr [...] below Urethra -bulbar urethral stricture approximately 16 [place] in size Prostate: Moderate lateral lobes VN: [...] bladder recurrence. By signing my name below, IJavi, attest that this documentation has been prepared under the direction and in the presence of Dr. Will. Electronically signed, William Mane Provider Attestation: Jason Roman MD, personally performed the services described in this documentation. All medical record entries made by the scribe were at my direction and in my presence. I have reviewed thechart and discharge instructions (if applicable) and agree that the record reflects my personal perf ormance and is accurate and complete. Dr. Jason Will MD January 04, 2024 2:08 PM documented in this encounterTrihealth Bethes[facility]08-30-2024 NoteHNO ID: [id number] Author: JASON WILL MD Service: ? Author [...] below Urethra -bulbar urethral stricture approximately 16 [place] in size Prostate: Moderate lateral lobes VN: [...] bladder recurrence. By signing my name below, Javi Roman, attest that this documentation has been prepared under the directi (more content not included)...[facility] 01-04-2024 Nurse Note* Jesus Alberto Baird MA - 01/04/2024 1:27 PM EDT UNIVERSAL PROTOCOL / SAFETY CHECKLIST Procedure to [...] Education Session: None Instruction Provided To: Patient Surgical Orderly Present: not applicable Discipline: Nursing Learning Topic: SURVIVAL SKILLS: Complication Prevention Symptom Management Patient Evaluation: Verbalizes understanding: Yes Supplemental Material Given: Written Material Instructed By Jesus Alberto Baird MA In Department Urology . [facility]08-30-[facility] Nurse Note* Jesus Alberto Baird MA - 01/04/2024 1:27 PM EDT UNIVERSAL PROTOCOL / SAFETY CHECKLIST Procedure to [...] Education Session: None Instruction Provided To: Patient Surgical Orderly Present: not applicable Discipline: Nursing Learning Topic: SURVIVAL SKILLS: Complication Prevention Symptom Management Patient Evaluation: Verbalizes understanding: Yes Supplemental Material Given: Written Material Instructed By Jesus Alberto Baird MA In Department Urology . documented in this encounterTrihealth Bethes[facility]08-19-2024 History of Present illness Narrative* Suzanne Aragon RN - 12/24/2023 12:31 PM EDT [place] notified of Mg 1.6. No new orders received. Suzanne Aragon RN documented in this encounterTrihealth [facility]08-19-2024 History of Present illness Narrative* Faisal Dasilva MD - 12/24/2023 9:50 AM EDT PATIENT NAME: Jolly Sierra DATE: 12/24/2023 PRIMARY [...] cold or heat intolerance, urinary frequency, urinary hesitancy,menorrhagia, or hematuria. PSYCH: Negative for anxiety, depression, [...] floor. CT urogram 09/03/2023 confirmed a large diverticulumarising from the right posterior wall of the urinary bladder. On 09/06/2023 he underwent robotic bladder diverticulectomy plus right pelvic lymph node dissection. Pathology revealed high-grade urothelia l carcinoma, greatest dimension 5 cm, with invasion [...] cycle 3-day 8 today. Return in 2 weeksfor follow-up and to start cycle 4. Based on labs and clinical condition we will then discuss whether to resume cisplatin. 2. Neurogenic bladder - ICD9: 596.54, ICD10: N31.9 Acute bladder dysfunction since 2005. Previously the patient required CIC several times daily. Currently urinating without the need for catheterization. However, he is experiencing increasing urinaryfrequency and urgency. [facility] whether he can resume self catheterizations. [...] MD CC: Dr. Donaldson documented in this encounterTrihealth Bethes[facility]08-13-2024 Telephone encounter Note * Telephone Encounter - Donald Perez RN - 12/18/2023 11:33 AM EDT Pt notified of his US and lab results as well a Marlee's recommendations. Verbalizes understanding. No questions noted. Donald Perez RN [facility] Work Phone: [phone]) 762-181208-13-2024 Miscellaneous Notes* Telephone Encounter - Donald Perez RN - 12/18/2023 11:33 AM EDT Pt notified of his US and lab results as well a Marlee's recommendations. Verbalizes understanding. No questions noted. Donald Perze RN * Telephone Encounter - Marlee Lockhart PA-C - 12/18/2023 11:28 AM EDT Please also inform him of normal iron levels Marlee Lockhart PA-C * Telephone Encounter - Donald Perez RN - 12/18/2023 11:21 AM EDT Call placed to pt. No answer. Message left requesting call back. Donald Perez RN * Telephone Encounter - Marlee Lockhart PA-C - 12/18/2023 11:01 AM EDT Please inform the patient that he does have a superficial clot in his arm. He needs to use warm compresses and NSAIDS if painful. Marlee Lockhart PA-C * Telephone Encounter - Mahi Oro - 12/18/2023 10:37 AM EDT Report scanned. * Telephone Encounter - Donald Perez RN - 12/18/2023 8:56 AM EDT Saira: Please scan results if available. Thanks! Donald Perez RN * Telephone Encounter - Paris Vigil - 12/17/2023 10:53 AM EDT Patient will be going today @ 5:00 pm for STAT US @ [facility]. Paris Vigil documented in this encounterTrihealth Bethes[facility]08-13-2024 Telephone encounter Note * Telephone Encounter - Marlee Lockhart PA-C - 12/18/2023 11:28 AM EDT Please also inform him of normal iron levels Marlee Lockhart PA-C [facility] Work Phone: [phone] Telephone encounter Note* Telephone Encounter - Donald Perez RN - 12/18/2023 11:21 AM EDT Call placed to pt. No answer. Message left requesting call back. Donald Perez RN [facility]08-13-2024 Telephone encounter Note* Telephone Encounter - Marlee Lockhart PA-C - 12/18/2023 11:01 AM EDT Please inform the patient that he does have a superficial clot in his arm. He needs to use warm compresses and NSAIDS if painful. Marlee Lockhart PA-C [facility]08-13-2024 Telephone encounter Note* Telephone Encounter - Mahi Oro - 12/18/2023 10:37 AM EDT Report scanned. [facility] [facility]08-13-2024 Telephone encounter Note* Telephone Encounter - Donald Perez RN - 12/18/2023 8:56 AM EDT Saira: Please scan results if available. Thanks! Donald Perez RN [facility]08-12-2024 History of Present illness Narrative* Gladys Colbert RN - 12/17/2023 11:19 AM EDT Potassium level 5.7 today. Reviewed with Ash Grey. Results faxed to PCP for follow up documented in this encounterTrihealth [facility]08-[facility] Telephone encounter Note * Telephone Encounter - Marlinefelix Paris - 12/17/2023 10:53 AM EDT Patient will be going today @ 5:00 pm for STAT US @ [employer]. [place] Vigil [facility]08-12-2024 History of Present illness Narrative* Marlee Lockhart PA-C - 12/17/2023 10:30 AM EDT PATIENT NAME: Jolly Sierra DATE: 12/17/2023 PRIMARY CARE PHYSICIAN: Jose J Donaldson Jr, DO OTHER PHYSICIANS: Dr. Jason Will, Dr. Antonio Gary Portions of this encounter note have been copied from Dr. Dasilva's note from 11/26/2023 and has beenupdated where appropriate, and reflect my current medical decision making from today. CC: This is a 78 year old male with recently diagnosed bladder cancer, seen for scheduled follow-up. INTERM HISTORY: Mr. Sierra returns for cycle 3 day 1 of treatment. About a day after chemo he beganto notice swelling on right foot and argueta [...] cold or heat intolerance, urinary frequency, urinary hesitancy,menorrhagia, or hematuria. PSYCH: Negative for anxiety, depression, [...] floor. CT urogram 09/03/2023 confirmed a large diverticulumarising from the right posterior wall of the urinary bladder. On 09/06/2023 he underwent robotic bladder diverticulectomy plus right pelvic lymph node dissection. Pathology revealed high-grade urothelia l carcinoma, greatest dimension 5 cm, with invasion [...] chemotherapy induced. Will check iron studies. Marlee Lockhart PA-C CC: Dr. Lalito Roman spent a total of 23 minutes on the date of the service which included preparing to see the patient, [id number] patient care, completing clinical documentation, performing a medically appropriate examination, counseling and educating the patient/family/caregiver, ordering medications, tests, or p rocedures, independently interpreting results (not separately reported), communicating results to the patient/family/caregiver, and care coordination (not separately reported). documented in this encounterTrihealth [facility]07-22-[facility] History of Present illness Narrative* Anette Go LSW - 11/26/2023 1:40 PM EDT SOCIAL WORK FOLLOW UP NOTE: [facility] Date of service:11/26/23 Jolly Sierra is [...] as appropriate. TRACIE Holden documented in this encounterTrihealth [facility]07-21-[facility] History of Present illness Narrative* Faisal Dasilva MD - 11/25/2023 1:22 PM EDT PATIENT NAME: Jolly Sierra DATE: 11/26/2023 PRIMARY [...] cold or heat intolerance, urinary frequency, urinary hesitancy,menorrhagia, or hematuria. PSYCH: Negative for anxiety, depression, [...] floor. CT urogram 09/03/2023 confirmed a large diverticulumarising from the right posterior wall of the urinary bladder. On 09/06/2023 he underwent robotic bladder diverticulectomy plus right pelvic lymph node dissection. Pathology revealed high-grade urothelia l carcinoma, greatest dimension 5 cm, with invasion [...] MD CC: Dr. Donaldson documented in this encounterTrihealth [facility]07-[facility]-20[facility] History of Present illness Narrative* Faisal Dasilva MD - 11/11/2023 11:33 AM EDT PATIENT NAME: Jolly Sierra DATE: 11/12/2023 PRIMARY [...] his first chemotherapy treatment well. No significant nausea,vomiting or other adverse effects. Apparently he has [...] cold or heat intolerance, urinary frequency, urinary hesitancy,menorrhagia, or hematuria. PSYCH: Negative for anxiety, depression, [...] floor. CT urogram 09/03/2023 confirmed a large diverticulumarising from the right posterior wall of the urinary bladder. On 09/06/2023 he underwent robotic bladder diverticulectomy plus right pelvic lymph node dissection. Pathology revealed high-grade urothelia l carcinoma, greatest dimension 5 cm, with invasion [...] MD CC: Dr. Donaldson documented in this encounterTrihealth [facility]07-05-2024 History of Present illness Narrative* Anette Go LSW - 11/09/2023 3:53 PM EDT [facility] on the [facility] First [facility] Treatment List. SW completed a chart review. SW will planto meet with Patient at a future appointment in order to complete a psychosocial assessment. TRACIE Holden Goals of Care Advance Directives are not on file. SIGNATURE: PAMELA Holden PATIENT NAME: Jolly Sierra DATE: November 09, 2023 TIME: 3:54 PM PAGER/CONTACT #: documented in this encounterTrihealth [facility]07-[facility] Telephone encounter Note * Telephone Encounter - Donald Perez RN - 11/07/2023 2:18 PM EDT CYCLE 1/DAY 1 POST TREATMENT CALL Today's [...] after hours number protocol. Donald Perez RN [facility] Work Phone: [phone] Miscellaneous Notes* Telephone Encounter - Donald Perez RN - 11/07/2023 2:18 PM EDT CYCLE 1/DAY 1 POST TREATMENT CALL Today's [...] protocol. Donald Perez RN documented in this encounterTrihealth [facility]07-01-[facility] History of Present illness Narrative* Marlee Lockhart PA-C - 11/05/2023 11:00 AM EDT PATIENT NAME: Jolly Sierra DATE: 11/05/2023 PRIMARY CARE PHYSICIAN: Jose J Donaldson Jr, DO OTHER PHYSICIANS: Dr. Jason Will, Dr. Antonio Gary (Elements copied from Dr. Dasilva's note dated October 22, 2023, have been reviewed and updated where appropriate, and all reflect current assessment and medical decision making during today's encounter,November 05, 2023) CC: This is a 78 [...] Take 10 g by mouth. Twice daily today.Then once daily beginning 11/01/23. Psyllium Seed-Sucrose (METAMUCIL, [...] cold or heat intolerance, urinary frequency, urinary hesitancy,menorrhagia, or hematuria. PSYCH: Negative for anxiety, depression, [...] floor. CT urogram 09/03/2023 confirmed a large diverticulumarising from the right posterior wall of the urinary bladder. On 09/06/2023 he underwent robotic bladder diverticulectomy plus right pelvic lymph node dissection. Pathology revealed high-grade urothelia l carcinoma, greatest dimension 5 cm, with invasion [...] thyroid ultrasound +/- referral to ENT Marlee Lockhart PA-C I spent a total of 20 minutes on the date of the service which included preparing to see the patient, [id number] patient care, completing clinical documentation, obtaining and/or reviewing separately obtained history, performing a medically appropriate examination, counseling and educating the pat ient/family/caregiver, ordering medications, tests, or procedures, communicating with other HCPs (not separately reported), independently interpreting results (not separately reported), communicatingresults to the patient/family/caregiver, and care coordination (not separately reported). documented in this encounterTrihealth [facility]06-26-2024 Telephone encounter Note * Telephone Encounter - Donald Perez RN - 10/31/2023 2:02 PM EDT [employer] Pre Chemo Patient identified by name and date of . YES Confirmed date and time for chemotherapy ? YES Other appointments (labs, imaging) discussed? 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 Noteshis potassium was 6. Prescribed Lokelma 10 grams. Was instructed to take 2 doses today then 1 dose daily each day after. Dr Donaldson has ordered his potassium to be redrawn next 11/05. Informed pt that we would be drawing his labs on Sunday and that we could forward those results to Dr Donaldson.Pt verbalizes understanding. Donald Perez RN [facility] Work Phone: 1(721) 364-779006-26-2024 Miscellaneous Notes* Telephone Encounter - Donald Perez RN - 10/31/2023 2:02 PM EDT [employer] Pre Chemo Patient identified by name and date of . YES Confirmed date and time for chemotherapy ? YES Other appointments (labs, imaging) discussed? YES Discussed where to park ([employer]), charge for parking NO Discussed where to [...] was in to see his PCP today. Noteshis potassium was 6. Prescribed Lokelma 10 grams. Was instructed to take 2 doses today then 1 dose daily each day after. Dr Donaldson has ordered his potassium to be redrawn next 11/05. Informed pt that we would be drawing his labs on Sunday and that we could forward those results to Dr Donaldson.Pt verbalizes understanding. Donald Perez RN documented in this encounterTrihealth [facility]06-25-2024 Telephone encounter Note * Telephone Encounter - Yesenia Irving RN - 10/30/2023 10:36 AM EDT Pt sees Marlee 7 and starts C1 tx. Consent was start, please sign. Thank you, Yesenia Irving RN [facility]06-25-2024 Miscellaneous Notes* Telephone Encounter - Yesenia Irving RN - 10/30/2023 10:36 AM EDT Pt sees Marlee 7 and starts C1 tx. Consent was start, please sign. Thank you, Yesenia Irving RN documented in this encounterTrihealth [facility]06-19-2024 History of Present illness Narrative* Donald Perez RN - 10/24/2023 11:47 AM EDT ONCOLOGY PATIENT EDUCATION NOTE TOPIC: Chemotherapy, Medications: [...] patient, which included the importance of reporting anyfever of 100.4F (38.0C) or greater to the healthcare team as noted on the provided wallet card and/or magnet. YES - 4[employer] Luc Information. YES - Patient services information. YES Time Spent: 43 minutes REFERRAL (RECOMMENDATION): N/A Donald Perez RN documented in this encounterTrihealth [facility]06-19-2024 Miscellaneous Notes* Addendum Note - Carrie Neal RPh - 10/24/2023 11:45 AM EDTAddended by: CARRIE NEAL on: 10/24/2023 12:49 PM Modules accepted: Orders documented in this encounterTrihealth [facility]06-19-2024 Note* Addendum Note - Carrie Neal RPh - 10/24/2023 11:45 AM EDTAddended by: CARRIE NEAL on: 10/24/2023 12:49 PM Modules accepted: Orders [facility] Work Phone: 1(175) 756-136006-19-2024 Telephone encounter Note* Telephone Encounter - Anni Perez MA - 10/24/2023 8:35 AM EDT Patient coming in Sunday11/05/23 for follow up treatment. Please add lab orders. Thanks. Anni Perez MA [facility]06-17-2024 Telephone encounter Note* Telephone Encounter - Donald Perez RN - 10/22/2023 1:35 PM EDT Pt's spouse notified and verbalizes understanding. State that the pt has an appointment w/ his PCP next week. Results forwarded to Dr Donaldson's office. Donald Perez RN [facility] Work Phone: 1([phone]) 732-208806-17-2024 Miscellaneous Notes* Telephone Encounter - Donald Perez RN - 10/22/2023 1:35 PM EDT Pt's spouse notified and verbalizes understanding. State that the pt has an appointment w/ his PCP next week. Results forwarded to Dr Donaldson's office. Donald Perez RN * Telephone Encounter - Donald Perez RN - 10/22/2023 1:30 PM EDT ----- Message from Faisal Dasilva MD sent at 10/22/2023 1:18 PM EDT ----- Please inform the patient that his PET scan showed no evidence of metastasis to lymph nodes, bones,or liver. As an incidental finding he has an enlarged thyroid with nodules. Question if any history of thyroid disease. Okay to follow-up with PCP for further management. Otherwise would recommend we proceed with chemotherapy for his bladder cancer as scheduled. documented in this encounterTrihealth [facility]06-17-2024 Telephone encounter Note * Telephone Encounter - Donald Perez RN - 10/22/2023 1:30 PM EDT ----- Message from Faisal Dasilva MD sent at 10/22/2023 1:18 PM EDT ----- Please inform the patient that his PET scan showed no evidence of metastasis to lymph nodes, bones,or liver. As an incidental finding he has an enlarged thyroid with nodules. Question if any history of thyroid disease. Okay to follow-up with PCP for further management. Otherwise would recommend we proceed with chemotherapy for his bladder cancer as scheduled. [facility]06-17-2024 Telephone encounter Note* Telephone Encounter - Donald Perez RN - 10/22/2023 11:48 AM EDT Pt will be in for education (Cisplatin,Gemcitabine) on Sunday. Scripts for antiemetics pended. Donald Perez RN [facility] Work Phone: [phone]) [phone] Miscellaneous Notes* Telephone Encounter - Donald Perez RN - 10/22/2023 11:48 AM EDT Pt will be in for education (Cisplatin,Gemcitabine) on Sunday. Scripts for antiemetics pended. Donald Perez RN documented in this encounterTrihealth [facility]06-16-20[facility] History of Present illness Narrative* Faisal Dasilva MD - 10/21/2023 9:16 PM EDT PATIENT NAME: Jolly Sierra DATE: 10/22/2023 PRIMARY [...] cold or heat intolerance, urinary frequency, urinary hesitancy,menorrhagia, or hematuria. PSYCH: Negative for anxiety, depression, [...] the upper and lower extremities and face. Negativefor palpations/nodules, purpura, and ecchymosis. EENT: Negative for [...] on all 4 extremities. Reflexes symmetric for biceps/brachioradial/patella/achilles. MUSCULOSKELETAL: Negative examination of joints, bones, muscles/tendons of all four extremities forinspection, percussion, and palpation. Negative for misallignment, asymmetry, [...] floor. CT urogram 09/03/2023 confirmed a large diverticulumarising from the right posterior wall of the urinary bladder. On 09/06/2023 he underwent robotic bladder diverticulectomy plus right pelvic lymph node dissection. Pathology revealed high-grade urothelia l carcinoma, greatest dimension 5 cm, with invasion of the perivesical fat (T3b). 2 resected lymph nodes were negative for metastasis. PET scan 10/16/2023 revealed no evidence of metastases. Options for further management were discussed at length with the patient and his . As recommended per [facility] urology we will proceed with adjuvant cisplatin- based chemotherapy (cisplatin plus gemcitabine x 4 cycles). [...] ENT Faisal Dasilva MD documented in this encounterTrihealth [facility]06-11-20[facility] History of Present illness Narrative* Donald Robertson, RT(R) - 10/16/2023 1:30 PM EDT RADIOLOGY SERVICE PROGRESS NOTE SERVICE DATE: 10/16/2023 SERVICE TIME: 1:37 PM PATIENT IDENTITY VERIFICATION COMPLETED USING TWO (2) STANDARD IDENTIFIERS: Name and Date of confirmed by patient verbally POST EXAM PIV STATUS: Discontinued PROCEDURE TYPE: NM INJECT: PET/CT BODY SCAN. 10.7 mCi F18 FDG. No other medications given.. ADMINISTRATION TIME: 1325 PATIENT DISCHARGED TO: Ambulatory patient, left MO department area. A Diagnostic radioactive procedure has taken place, with no further precautions necessary other than routine body substance precautions. More information regarding radiation safety can be found usingthis link: [email or web address] SIGNATURE: RT Hero(Christiana) PATIENT NAME: Jolly Sierra DATE: October 16, 2023 TIME: 1:37 PM PAGER/CONTACT #: documented in this encounterTrihealth [facility]05-31-20[facility] History of Present illness Narrative* Jessica Willett MA - 10/05/2023 3:16 PM EDT Post Void Residual done on patient with 63 cc residual volume remaining. notified. Jessica Willett MA * Jessica Willett MA - 10/05/2023 3:15 PM EDT UNIVERSAL PROTOCOL / SAFETY CHECKLIST Procedure to [...] Education Session: None Instruction Provided To: Patient Surgical Orderly Present: not applicable Discipline: Nursing Learning Topic: SURVIVAL SKILLS: Pain Management Symptom Management Patient Evaluation: Verbalizes understanding: Yes Supplemental Material Given: Written Material Instructed By Jessica Willett MA In Department Urology . * Jason Will MD - 10/05/2023 3:00 PM EDT HISTORY: Jolly Sierra is a 78 yr [...] cycles). Given the fact he had a dive rticulectomy rather than cystectomy the addition of adjuvant [...] with oncology with a PET scan. Recommend officecystoscopy in 3 months. Recommended he catheterize himself once or twice a day to document PVRs. Ifthey are greater than 150 I recommend he catheterize at least twice daily. Jason Will MD By signing my name below, I, Jennifer Avalos, attest that this documentation has been prepared under thedirection and in the presence of Dr. Will Electronically signed, William Ferrara I agree with the Chief Complaint, ROS, and Past Histories independently gathered by the clinical behavior support specialist and the remaining scribed note accurately describes my personal service to the patient. Dr. Jason Will MD documented in this encounterTrihealth [facility]05-22-2024 History of Present illness Narrative* Faisal Dasilva MD - 09/26/2023 5:50 PM EDT PATIENT NAME: Jolly Sierra DATE: 09/27/2023 PRIMARY [...] urinary infection with hematuria. Urine cytology was suspicious.Initial cystoscopy 08/01/2023 revealed a large diverticulum on the right bladder floor. He was referred to [facility] urology for further management (Dr. Will). 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 Currently and lives with his in [place]. He does not smoke. MEDICATIONS: Current Outpatient [...] cold or heat intolerance, urinary frequency, urinary hesitancy,menorrhagia, or hematuria. PSYCH: Negative for anxiety, depression, [...] the upper and lower extremities and face. Negativefor palpations/nodules, purpura, and ecchymosis. EENT: Negative for [...] on all 4 extremities. Reflexes symmetric for biceps/brachioradial/patella/achilles. MUSCULOSKELETAL: Negative examination of joints, bones, muscles/tendons of all four extremities forinspection, percussion, and palpation. Negative for misallignment, asymmetry, [...] floor. CT urogram 09/03/2023 confirmed a large diverticulumarising from the right posterior wall of the urinary bladder. On 09/06/2023 he underwent robotic bladder diverticulectomy plus right pelvic lymph node dissection. Pathology revealed high-grade urothelia l carcinoma, greatest dimension 5 cm, with invasion [...] cycles). Given the fact he had a diver ticulectomy rather than cystectomy the addition of adjuvant [...] PCP. Faisal Dasilva MD documented in this encounterTrihealth [facility]05-17-2024 Nurse Note* Rosa Mondragon RN - 09/21/2023 9:00 AM EDT Patient here for trial voiding. Bladder filled with 200 cc's of Sterile Water. Catheter removed. Patient was able to void. Mariajose Abreu CNP notified. Catheter: Not reinserted. Rosa Mondragon RN Post Void Residual done on patient with 72 cc residual volume remaining. notified. Rosa Mondragon RN [facility]05-17-2024 Nurse Note* Rosa Mondragon RN - 09/21/2023 9:00 AM EDT Patient here for trial voiding. Bladder filled with 200 cc's of Sterile Water. Catheter removed. Patient was able to void. Mariajose Abreu CNP notified. Catheter: Not reinserted. Rosa Mondragon RN Post Void Residual done on patient with 72 cc residual volume remaining. notified. Rosa Mondragon RN documented in this encounterTrihealth [facility]05-14-2024 Telephone encounter Note * Telephone Encounter - Dirk Guerra - 09/18/2023 4:18 PM EDT I got a call from Jolly and he said he missed a call and was calling back. I imagine it was coming from [facility] for his TOSunday. [facility]05-14-2024 Miscellaneous Notes* Telephone Encounter - GuerraDirk - 09/18/2023 4:18 PM EDT I got a call from Warren and he said he missed a call and was calling back. I imagine it was coming from [facility] for his TOV Sunday. documented in this encounterTrihealth [facility]05-09-2024 Telephone encounter Note * Telephone Encounter - Jason Will MD - 09/13/2023 2:13 PM EDT FINAL DIAGNOSIS A. Urinary bladder, neck of [...] report. 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 Iwill refer him to our medical oncologist in [place]. Otherwise he is recovering well. He will follow-up as scheduled. We did briefly talk about the need for prolonged surveillance of his bladder Jason Will MD [facility]05-09-2024 Miscellaneous Notes* Telephone Encounter - Jason Will MD - 09/13/2023 2:13 PM EDT FINAL DIAGNOSIS A. Urinary bladder, neck of [...] report. 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 Iwill refer him to our medical oncologist in [place]. Otherwise he is recovering well. He will follow-up as scheduled. We did briefly talk about the need for prolonged surveillance of his bladder Jason Will MD documented in this encounterTrihealth [facility]05-03-2024 Telephone encounter Note * Telephone Encounter - Yvette Gongora RN - 09/07/2023 9:17 AM EDT Pt had 1) robotic bladder diverticulectomy [complicated] 2) robotic right pelvic lymph node dissection with Dr. Will 09/06/23 Currently inpatient Will call once discharged for post operative assessment [facility]05-03-2024 Miscellaneous Notes* Telephone Encounter - Yvette Gongora RN - 09/07/2023 9:17 AM EDT Pt had 1) robotic bladder diverticulectomy [complicated] 2) robotic right pelvic lymph node dissection with Dr. Will 09/06/23 Currently inpatient Will call once discharged for post operative assessment documented in this encounterTrihealth [facility]04-29-2024 History of Present illness Narrative* Cristina Umana RN - 09/03/2023 2:00 PM EDT Radiology Service Progress Note DATE OF SERVICE: [...] injury, the eGFRmay not accurately reflect actual GFR. P.O.C.T. RESULTS: [...] 2023 TIME: 1:29 PM documented in this encounterTrihealth [facility]04-24-2024 Telephone encounter Note * Telephone Encounter - Amarilis Oh RN - 08/29/2023 12:10 PM EDT Procedure: ROBOTIC LAPAROSCOPIC EXCISION BLADDER DIVERTICULUM,SINGLE OR MULTIPLE Physician: Dr. Jason Wlil Location: [facility]: [phone] Date & Time: 09/06/2023 MEDICAL CLEARANCE: No [...] days after surgery or procedure. Some common medicationsthat contain ASPIRIN or act like Aspirin are TO BE AVOIDED: This is a list of the medications you should avoid: Advill Celebrex Motrin Aggrenox Clinoril Naprosyn(naproxen) Agrylin NSAIDS Pepto-Bismol Aleve Ecotrin Persantine Cyndi-Ardmore Excedrin Plaquenil Anacin Heparin Plavix Ascriptin Herbals [...] - IV pain medication after surgery, IV DAIRY CLERK if ordered by MD, discharged home with aprescription for PO pain medication, pain management after surgery, side effects of pain medication(including constipation, dizziness, drowsiness, and medication interactions). DVT PROPHYLAXIS - Early ambulation, SCDs, injectable anticoagulants (heparin, lovenox, etc) RESPIRATORY - Incentive spirometer, coughing/deep breathing exercises, ambulation. RETURN TO WORK - As directed by physician, please send any FMLA papers to physician's executive secretary. SYMPTOMS TO NOTIFY MD - Fever, chills, nausea, vomiting, increased or severe pain, heavy bleeding, foul smelling drainage, pain or swelling in extremities. URGENT SYMPTOMS - Call 911 or go to ER if any shortness of breath, difficulty breathing, or chest pain. HOW TO CONTACT PHYSICIAN - Physician's office phone number given to patient, if after hours patientinstructed to call packing line operator and ask for the doctor control valve mechanic. Patient and family have phone number to call 24 hours/day. Patient Evaluation: Verbalizes understanding Patient and/or family express understanding of upcoming surgery and the operative process. Questions answered. Follow Up Plan: Follow up as needed Supplemental Material Given: Pre-operative teaching packet provided to the patient: INPATIENT/OUTPATIENT printed instructions; Post-operative instruction sheet, bowel prep instructionsheet For questions contact: Dr. Jason Will's office at [phone] Instructed By Amarilis Oh RN [facility]04-24-2024 Miscellaneous Notes* Telephone Encounter - Amarilis Oh RN - 08/29/2023 12:10 PM EDT Procedure: ROBOTIC LAPAROSCOPIC EXCISION BLADDER DIVERTICULUM,SINGLE OR MULTIPLE Physician: Dr. Jason Will Location: [facility]: [phone] Date & Time: 09/06/2023 MEDICAL CLEARANCE: No [...] days after surgery or procedure. Some common medicationsthat contain ASPIRIN or act like Aspirin are TO BE AVOIDED: This is a list of the medications you should avoid: Advill Celebrex Motrin Aggrenox Clinoril Naprosyn(naproxen) Agrylin NSAIDS Pepto-Bismol Aleve Ecotrin Persantine Cyndi-Ardmore Excedrin Plaquenil Anacin Heparin Plavix Ascriptin Herbals [...] - IV pain medication after surgery, IV DAIRY CLERK if ordered by MD, discharged home with aprescription for PO pain medication, pain management after surgery, side effects of pain medication(including constipation, dizziness, drowsiness, and medication interactions). DVT PROPHYLAXIS - Early ambulation, SCDs, injectable anticoagulants (heparin, lovenox, etc) RESPIRATORY - Incentive spirometer, coughing/deep breathing exercises, ambulation. RETURN TO WORK - As directed by physician, please send any FMLA papers to physician's executive secretary. SYMPTOMS TO NOTIFY MD - Fever, chills, nausea, vomiting, increased or severe pain, heavy bleeding, foul smelling drainage, pain or swelling in extremities. URGENT SYMPTOMS - Call 911 or go to ER if any shortness of breath, difficulty breathing, or chest pain. HOW TO CONTACT PHYSICIAN - Physician's office phone number given to patient, if after hours patientinstructed to call packing line operator and ask for the doctor control valve mechanic. Patient and family have phone number to call 24 hours/day. Patient Evaluation: Verbalizes understanding Patient and/or family express understanding of upcoming surgery and the operative process. Questions answered. Follow Up Plan: Follow up as needed Supplemental Material Given: Pre-operative teaching packet provided to the patient: INPATIENT/OUTPATIENT printed instructions; Post-operative instruction sheet, bowel prep instructionsheet For questions contact: Dr. Jason Will's office at [phone] Instructed By Amarilis Oh RN documented in this encounterTri[facility] Instructions* Patient Instructions* Rosi Early PA-C - 08/28/2023 11:15 AM EDT PATIENT PREOPERATIVE INSTRUCTIONS Jason Will MD has scheduled you for your procedure at this surgery center: [facility]: [phone] --[id number] [address]. Please check in on the1st floor at registration desk 6. Please read [...] Procedures: - YOU MUST HAVE A RESPONSIBLE INSTRUMENTAL TEACHER TAKE YOU HOME. A REAL ESTATE ACCOUNT EXECUTIVE OR AUDIT MGR CANNOT BE MADE A RESPONSIBLE INSTRUMENTAL TEACHER. - We recommend that a responsible person stays with you overnight to take care of you. - You cannot stay in a hotel alone after outpatient surgery. You will not be permitted to have yoursurgery, if you do not have someone to [...] Advance Directive, please fax a copy to [phone] or email to for it to be added to your chart. If you do not have an Advance Directive, you can find the appropriate form and more information at [email or web address]. We recommend that youcomplete the Advance Directive form found on the website and bring it with you the day of your surgery. It can be witnessed and scanned into your chart that day. documented in this encounterTrihealth [facility]04-23-2024 History and physical note * Rosi Early PA-C - 08/28/2023 11:13 AM EDT Images from the original note were not included. HISTORY AND PHYSICAL EXAMINATION SERVICE DATE: 08/28/2023 SERVICE TIME: 12:05 PM PRIMARY CARE PHYSICIAN: No primary care provider on file. REASON FOR VISIT: Jolly Sierra is a 78 year old male who is scheduled for ROBOTIC LAPAROSCOPIC EXCISION BLADDER DIVERTICULUM,SINGLE OR MULTIPLE at the request of for consultation. My final recommendation will becommunicated back to the requesting physician by way [...] fevers. Neuro: No history of TIA's, stroke, CHAINSTITCH BINDER tumor, impaired sensorium, hemiplegia, paraplegia or quadraplegia. No neurological symptoms or problems. Respiratory: No history of current cough or dyspnea, or pneumonia in the past 6 weeks. No history of respiratory/pulmonary symptoms or problems. Cardiovascular: Positive for: HLD, Hypertension, Negative for Arrhythmia, CAD, Chest Pain, ValvularHeart Disease, DVT/PE GI: No history of GI symptoms or problems. No history of esophageal varices, recent ascites, or ETOH greater than 2 drinks per day. : See HPI Endocrine: No history of diabetes. Has not taken steroids within the past 30 days. No history of endocrinological symptoms or problems. Hematology: No history of bleeding or clotting disorder. Pt is not taking anti- coagulation or platelet medications. No history of hematological [...] Jolly Sierra DATE: 08/28/2023 TIME: 12:06 PM [facility]04-23-[facility] History and physical note* Rosi Early PA-C - 08/28/2023 11:13 AM EDT Images from the original note were not included. HISTORY AND PHYSICAL EXAMINATION SERVICE DATE: 08/28/2023 SERVICE TIME: 12:05 PM PRIMARY CARE PHYSICIAN: No primary care provider on file. REASON FOR VISIT: Jolly Sierra is a 78 year old male who is scheduled for ROBOTIC LAPAROSCOPIC EXCISION BLADDER DIVERTICULUM,SINGLE OR MULTIPLE at the request of for consultation. My final recommendation will becommunicated back to the requesting physician by way [...] PAST SURGICAL HISTORY OF 2006 bladder surgery History reviewed. No pertinent family [...] fevers. Neuro: No history of TIA's, stroke, CHAINSTITCH BINDER tumor, impaired sensorium, hemiplegia, paraplegia or quadraplegia. No neurological symptoms or problems. Respiratory: No history of current cough or dyspnea, or pneumonia in the past 6 weeks. No history of respiratory/pulmonary symptoms or problems. Cardiovascular: Positive for: HLD, Hypertension, Negative for Arrhythmia, CAD, Chest Pain, ValvularHeart Disease, DVT/PE GI: No history of GI symptoms or problems. No history of esophageal varices, recent ascites, or ETOH greater than 2 drinks per day. : See HPI Endocrine: No history of diabetes. Has not taken steroids within the past 30 days. No history of endocrinological symptoms or problems. Hematology: No history of bleeding or clotting disorder. Pt is not taking anti- coagulation or platelet medications. No history of hematological [...] 08/28/2023 TIME: 12:06 PM documented in this encounterTrihealth [facility]04-22-2024 Telephone encounter Note * Telephone Encounter - Soledad Em - 08/27/2023 10:22 AM EDT Patient was called and agreed to surgery: ROBOTIC LAPAROSCOPIC EXCISION BLADDER DIVERTICULUM,SINGLE OR MULTIPLE with Jason Will MD on 09/06/2023 PACC scheduled on 08/28/23 [place] Packet mailed out to patient home. [facility] Work Phone: 1(723) 644-659004-22-2024 Miscellaneous Notes* Telephone Encounter - Soledad Em - 08/27/2023 10:22 AM EDT Patient was called and agreed to surgery: ROBOTIC LAPAROSCOPIC EXCISION BLADDER DIVERTICULUM,SINGLE OR MULTIPLE with Jason Will MD on 09/06/2023 PACC scheduled on 08/28/23 [place] Packet mailed out to patient home. documented in this encounterTrihealth [facility]04-19-2024 History of Present illness Narrative* Jason Will MD - 08/24/2023 2:50 PM EDT [facility] NEW PATIENT HISTORY AND PHYSICAL EXAM PATIENT INFO: Jolly Sierra 78 year old REFERRING M.Bear.: No referring provider defined for this encounter. CHIEF COMPLAINT: Bladder tumor HISTORY: Jolly Sierra is a 78 yr old male with a hx of HTN, UTI, BPH, neurogenic bladder, and HLDpresenting for bladder lesions presenting for surgical discussion. [...] with gross hematuria. Was started on abx afte rwards. On 04/23/2023 he was still having small [...] alternatives of a robotic diverticulectomy/partial cystectomy were discussedwith the patient. These include but are not limited to bleeding, infection, bladder perforation, need for additional procedures, need for blood transfusions, need for prolonged catheterization or admission to the hospital. We talked about possible need for adjuvant treatment, either intravesical oradditional procedures after pathology results become available. PLAN: [...] that this documentation has been prepared under thedirection and in the presence of Dr. Will Electronically signed, William Ferrara I agree with the Chief Complaint, ROS, and Past Histories independently gathered by the clinical behavior support specialist and the remaining scribed note accurately describes my personal service to the patient. Dr. Jason Will MD New Patient is sent as a consult from Dr. Toby Gary for my opinion regarding bladder tumor. My final recommendations will be communicated back to the requesting physician by way of Medical Record. documented in this encounterTrihealth [facility]04-01-2024 Miscellaneous Notes* Telephone Encounter - Anni Perez MA - 10/24/2023 8:35 AM EDT Patient coming in Sunday11/05/23 for follow up treatment. Please add lab orders. Thanks. Anni Perez MA documented in this encounterTrihealth [facility]03-27-2024 Hospital Discharge instructions Patient Education 08/01/2023 13:05:22 Clean Intermittent Catheterization, Male Clean Intermittent Catheterization, Male Clean intermittent catheterization (CIC) is a procedure to remove urine from the bladder by placinga small, flexible tube (catheter) into the bladder though the urethra. The urethra is a tube in thebody that carries urine from the bladder out [...] also help you to get the home caresupplies that are needed for this procedure. Supplies [...] of times per day to perform CIC: To perform CIC, follow these steps: 1.Wash your hands with soap and water. If soap and water are not available, use hand car stower. 2.Clean your penis with soap and water. [...] pointing to the ceiling. You may wish toplace a waterproof mat or pad under you. [...] reusable catheter in a small bathroom. Take [id number] and prescription medicines only as told by [...] to remove urine from the bladder by placinga small, flexible tube (catheter) into the bladder [...] provider. Document Revised: 02/27/2022 Document Reviewed: 02/27/2022 [employer] Patient Education 2022 [employer]feedback. Follow Up Care 07/30/2023 08:07:25 With:ABDIRAHMAN NORWOOD, Antonio Villeda, URL Address: [facility] [address], [place] [address]- When: Unknown [facility] Adriano 03-27-2024 Evaluation + Plan note Diagnostic Tests Pending * [facility] Fish [facility] Urine [facility]to ([facility]) 08/01/23 [facility]04-03-2023 Hospital Discharge instructions Patient Education 08/07/2022 08:52:25 Clean Intermittent Catheterization, Male Clean Intermittent Catheterization, Male Clean intermittent catheterization (CIC) is a procedure to remove urine from the bladder by placinga small, flexible tube (catheter) into the bladder though the urethra. The urethra is a tube in thebody that carries urine from the bladder out [...] also help you to get the home caresupplies that are needed for this procedure. Supplies [...] of times per day to perform CIC: To perform CIC, follow these steps: 1.Wash your hands with soap and water. If soap and water are not available, use hand car stower. 2.Prepare the supplies that you will use [...] pointing to the ceiling. You may wish toplace a waterproof mat or pad under you. [...] reusable catheter in a small bathroom. Take [id number] and prescription medicines only as told by [...] to remove urine from the bladder by placinga small, flexible tube (catheter) into the bladder [...] 05/26/2011 Document Revised: 08/13/2019 Document Reviewed: 12/12/2018 [employer] Choice Patient Education 2020 Fotofeedback. Follow Up Care 07/25/2021 11:53:45 With:Antonio GARY MD, URL Address: [facility] [address], [place] [address]- When: Unknown [facility] evaluation + Plan note Future Appointments Appointment Date:08/13/2023 08:45:00 AM Scheduled Provider:Antonio GARY MD Location:[facility] Appointment Type:URO Office Visit [facility] evaluation note* Diagnosis Malignant neoplasm of urinary bladder, unspecified site (HCC)- Primary Diverticulum of bladder Benign prostatic hyperplasia with urinary obstruction documented in this encounter [facility]* Diagnosis Malignant neoplasm of overlapping sites of bladder (HCC)- Primary Malignant neoplasm of other specified sites of bladder Neoplasm of bladder Neoplasm of unspecified nature of bladder Abnormal coagulation profile Abnormal urine levels of substances chiefly nonmedicinal as to source Nonspecific abnormal toxicological findings documented in this encounter [facility] Diagnosis Preoperative clearance- Primary Preoperative examination, [...] with medication, stable [facility]* Diagnosis Bacteriuria- Primary Other nonspecific finding on examination of urine Neoplasm of bladder Neoplasm of unspecified nature of bladder [facility]* Diagnosis Malignant neoplasm of urinary bladder, unspecified site (HCC) Neoplasm of bladder Neoplasm of unspecified nature of bladder [facility]* Diagnosis Malignant neoplasm of overlapping sites of bladder (HCC)- Primary Malignant neoplasm of other specified sites of bladder documented in this encounter [facility]* Diagnosis Malignant neoplasm of urinary bladder, unspecified site (HCC)- Primary [facility]* Diagnosis Malignant neoplasm of overlapping sites of bladder (HCC)- Primary Malignant neoplasm of other specified sites of bladder Neurogenic bladder Neurogenic bladder, NOS [facility]* Diagnosis Acute cystitis without hematuria- Primary Acute cystitis Screening for nephropathy [facility]* Diagnosis Malignant neoplasm of overlapping sites of bladder (HCC)- Primary Malignant neoplasm of other specified sites of bladder Neurogenic bladder Neurogenic bladder, NOS Abnormal imaging of thyroid [facility]* Diagnosis Malignant neoplasm of overlapping sites of bladder (HCC)- Primary Malignant neoplasm of other specified sites of bladder [facility]* Diagnosis Malignant neoplasm of overlapping sites of bladder (HCC)- Primary Malignant neoplasm of other specified sites of bladder [facility]* Diagnosis Malignant neoplasm of overlapping sites of bladder (HCC)- Primary Malignant neoplasm of other specified sites of bladder [facility]* Diagnosis Malignant neoplasm of overlapping sites of bladder (HCC)- Primary Malignant neoplasm of other specified sites of bladder [facility]* Diagnosis Malignant neoplasm of overlapping sites of bladder (HCC)- Primary Malignant neoplasm of other specified sites of bladder Neurogenic bladder Neurogenic bladder, NOS [facility]* Diagnosis Malignant neoplasm of overlapping sites of bladder (HCC)- Primary Malignant neoplasm of other specified sites of bladder [facility]* Diagnosis Malignant neoplasm of overlapping sites of bladder (HCC)- Primary Malignant neoplasm of other specified sites of bladder Neurogenic bladder Neurogenic bladder, NOS [facility]* Diagnosis Malignant neoplasm of overlapping sites of bladder (HCC)- Primary Malignant neoplasm of other specified sites of bladder Swelling of joint of upper arm, right Swelling of arm Swelling of limb Anemia, unspecified type [facility]* Diagnosis Malignant neoplasm of overlapping sites of bladder (HCC)- Primary Malignant neoplasm of other specified sites of bladder [facility]* Diagnosis Preoperative clearance- Primary Preoperative examination, unspecified Neurogenic bladder Neurogenic bladder, NOS Lesion of bladder Unspecified disorder of bladder Malignant neoplasm of overlapping sites of bladder (HCC)- Primary Malignant neoplasm of other specified sites of bladder [facility]* Diagnosis Preoperative clearance- Primary Preoperative [...] abnormal toxicological findings [facility]* Diagnosis Preoperative clearance- Primary Preoperative examination, unspecified Neurogenic bladder Neurogenic bladder, NOS Lesion of bladder Unspecified disorder of bladder History of bladder cancer- Primary Personal history of malignant neoplasm of bladder Screening for genitourinary condition Screening for other and unspecified genitourinary condition [facility]* Diagnosis Preoperative clearance- Primary Preoperative examination, unspecified Neurogenic bladder Neurogenic bladder, NOS Lesion of bladder Unspecified disorder of bladder Malignant neoplasm of overlapping sites of bladder (HCC)- Primary Malignant neoplasm of other specified sites of bladder [facility]* Diagnosis Preoperative clearance- Primary Preoperative examination, unspecified Neurogenic bladder Neurogenic bladder, NOS Lesion of bladder Unspecified disorder of bladder Malignant neoplasm of overlapping sites of bladder (HCC)- Primary Malignant neoplasm of other specified sites of bladder documented [facility]* Diagnosis Preoperative clearance- Primary Preoperative examination, unspecified Neurogenic bladder Neurogenic bladder, NOS Lesion of bladder Unspecified disorder of bladder Malignant neoplasm of overlapping sites of bladder (HCC) Malignant neoplasm of other specified sites of bladder Neoplasm of bladder Neoplasm of unspecified nature of bladder [facility]* Diagnosis Preoperative clearance- Primary Preoperative examination, [...] nature of bladder documented in this encounter [facility]* Diagnosis Preoperative clearance- Primary Preoperative examination, unspecified Neurogenic bladder Neurogenic bladder, NOS Lesion of bladder Unspecified disorder of bladder Bacteriuria- Primary Other nonspecific finding on examination of urine Neoplasm of bladder Neoplasm of unspecified nature of bladder documented in this encounter [facility]* Diagnosis Preoperative clearance- Primary Preoperative examination, unspecified Neurogenic bladder Neurogenic bladder, NOS Lesion of bladder Unspecified disorder of bladder Pre-op evaluation- Primary Preoperative examination, unspecified Hyperlipidemia, unspecified hyperlipidemia type Primary hypertension Unspecified essential hypertension Neurogenic bladder Neurogenic bladder, NOS Antineoplastic chemotherapy induced anemia Neoplasm of bladder Neoplasm of unspecified nature of bladder * Assessment & Plan Note - Bridget Slaughter APRN.CNP - 01/28/2024 2:32 PM EDT 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 Tripp Dasilva, Last office visit 01/08/2024 Has completed chemotherapy, currently Asymptomatic updated CBC * Assessment & Plan Note - Bridget Slaughter APRN.CNP - 01/28/2024 2:31 PM EDT Associated Problem(s): Neurogenic bladder Assessment: able to urinate some , performs ISC 4-5 times/day. * Assessment & Plan Note - Bridget Slaughter APRN.CNP - 01/28/2024 2:30 PM EDT Associated Problem(s): HTN (hypertension) Assessment: Stable with med, follows with PCP. Date: BP: 01/28/2024 128/68 01/15/2024 134/63 * Assessment & Plan Note - Bridget Slaughter APRN.CNP - 01/28/2024 2:30 PM EDT Associated Problem(s): HLD (hyperlipidemia) Assessment: Managed with Statin , Follows with PCP documented in this encounter [facility]* Diagnosis Preoperative clearance- Primary Preoperative [...] nature of bladder documented [facility] this encounter [facility]* Diagnosis Preoperative clearance- Primary Preoperative examination, [...] nature of bladder [facility]* Diagnosis Preoperative clearance- Primary Preoperative examination, [...] Neurogenic bladder, NOS documented in this encounter [facility]* Diagnosis Preoperative clearance- Primary Preoperative examination, unspecified Neurogenic bladder Neurogenic bladder, NOS Lesion of bladder Unspecified disorder of bladder Pre-op evaluation- Primary Preoperative examination, unspecified Hyperlipidemia, unspecified hyperlipidemia type Primary hypertension Unspecified essential hypertension Neurogenic bladder Neurogenic bladder, NOS Antineoplastic chemotherapy induced anemia Neoplasm of bladder- Primary Neoplasm of unspecified nature of bladder documented in this encounter [facility]* Diagnosis Preoperative clearance- Primary Preoperative examination, [...] nature of bladder [facility]* Diagnosis Preoperative clearance- Primary Preoperative examination, [...] imaging of thyroid documented [facility] this [facility] Diagnosis Preoperative clearance- Primary Preoperative examination, unspecified Neurogenic bladder Neurogenic bladder, NOS Lesion of bladder Unspecified disorder of bladder Pre-op evaluation- Primary Preoperative examination, unspecified Hyperlipidemia, unspecified hyperlipidemia type Primary hypertension Unspecified essential hypertension Neurogenic bladder Neurogenic bladder, NOS Antineoplastic chemotherapy induced anemia Thyroid nodule- Primary Nontoxic uninodular goiter documented [facility] noteNo assessment information availableMari[facility] Work Phone: Evaluation note* Diagnosis Nontoxic multinodular goiter (CMS/HCC)- Primary Nontoxic multinodular goiter Thyroid nodule (CMS/HCC) Nontoxic uninodular goiter Thyroid dysfunction (CMS/HCC) Unspecified disorder of thyroid [facility] Diagnosis Nontoxic multinodular goiter (CMS/HCC)- Primary Nontoxic multinodular goiter Thyroid nodule (CMS/HCC) Nontoxic uninodular goiter [facility] Diagnosis Preoperative clearance- Primary Preoperative examination, [...] Nontoxic uninodular goiter [facility]* Diagnosis Preoperative clearance- Primary Preoperative examination, [...] of urinary bladder [facility]* Diagnosis Nontoxic multinodular goiter- Primary Nontoxic multinodular goiter Thyroid nodule Nontoxic uninodular goiter documented in this encounter [facility] HealthcareEvaluation note* Diagnosis Nontoxic multinodular goiter- Primary Nontoxic multinodular goiter Thyroid nodule Nontoxic uninodular goiter documented in this encounter [facility]* Diagnosis Preoperative clearance- Primary Preoperative [...] sites of bladder [facility] Diagnosis Heart failure, unspecified (HCC)- Primary Heart failure, unspecified Primary hypertension Unspecified essential hypertension Malignant neoplasm of urinary bladder, unspecified site (HCC) Stage 3b chronic kidney disease (CMS-HCC) Hyperlipidemia, unspecified hyperlipidemia type Multiple thyroid nodules Nontoxic multinodular goiter Agent orange exposure documented in this encounter [facility] HealthcareEvaluation note* Diagnosis Preoperative clearance- Primary Preoperative examination, unspecified Neurogenic bladder Neurogenic bladder, NOS Lesion of bladder Unspecified disorder of bladder Pre-op evaluation- Primary Preoperative examination, unspecified Hyperlipidemia, unspecified hyperlipidemia type Primary hypertension Unspecified essential hypertension Neurogenic bladder Neurogenic bladder, NOS Antineoplastic chemotherapy induced anemia Malignant neoplasm of prostate (HCC)- Primary Malignant neoplasm of prostate documented in this [facility] Diagnosis Wellness examination- Primary Mixed hyperlipidemia Prediabetes Other abnormal glucose Chronic heart failure, unspecified heart failure type (HCC) Primary hypertension Unspecified essential hypertension [facility] N[facility] No data available for this section [facility] Discharge instructions No data available for this section [facility] No data available for this section [facility] reason for referral (narrative)* Outpatient Procedure (Routine) - Pending ReviewSpecialtyDiagnoses / ProceduresReferred By Contact [facility] Diagnoses Preoperative clearance Procedures ECG COMPLETE ECG ROUTINE ECG W/LEAST 12 LDS W/I&R Rosi Early PA-C [address] [place] [address] [facility] [place] [facility] [place] [address] Referral IDStatusReasonStart DateExpiration DateVisits RequestedVisits [id number] Review Auto-Generated Referral / [facility] (narrative)* Diagnostic Procedure Only (Routine) - AuthorizedSpecialtyDiagnoses / ProceduresReferred By Contact Referred To ContactMOLECULAR & FUNCTIONAL IMAGING Diagnoses Malignant neoplasm of overlapping sites of bladder (HCC) Procedures NM PET/CT SKULL-THIGH INITIAL PET IMAGING CT ATTENUATION SKULL BASE MID-THIGH Faisal Dasilva MD [address] [place] [address] [place] [address] Molecular & Functional Imaging [address] [place] [address] Referral IDStatusReasonStart DateExpiration DateVisits RequestedVisits [id number] Auto-Generated Referral / [facility] for referral (narrative)* Diagnostic Procedure Only (Urgent) - New RequestSpecialtyDiagnoses / ProceduresReferred By Contact Referred To ContactUS IMAGING Diagnoses Malignant neoplasm of overlapping sites of bladder (HCC) Swelling of arm Procedures US DVT UPPER RIGHT DUP-SCAN XTR VEINS UNILATERAL/LIMITED STUDY Marlee Lockhart PA-C [facility] [place] [address] Us Imaging [place] [address] Referral IDStatusReasonStdavisboro DateExpiration DateVisits RequestedVisits [id number] Request Auto-Generated Referral / [facility] for referral (narrative)* Diagnostic Procedure Only (Routine) - ClosedSpecialtyDiagnoses / ProceduresReferred By ContactReferred To ContactMOLECULAR & FUNCTIONAL IMAGING Diagnoses Malignant neoplasm of overlapping sites of bladder (HCC) Procedures NM PET/CT SKULL-THIGH INITIAL PET IMAGING CT ATTENUATION SKULL BASE MID-THIGH Faisal Dasilva MD [address] [place] [address] [place] [address] Molecular & Functional Imaging [address] [place] [address] Referral IDStatusReasonStart DateExpiration DateVisits RequestedVisits [id number] Auto-Generated Referral [facility] for referral (narrative)* Diagnostic Procedure Only (Routine) - New RequestSpecialtyDiagnoses / ProceduresReferred By Contact Referred To ContactUS IMAGING Diagnoses Abnormal imaging of thyroid Procedures US THYROID/PARATHYROID US SOFT TISSUE HEAD & NECK REAL TIME IMGE Faisal Burton MD [address] [place] [address] [address] [place] [id number] Us Imaging [place] [address] Referral IDStatusReasonStart DateExpiration DateVisits RequestedVisits [id number] Request Auto-Generated Referral / [facility] for referral (narrative)No reason for referral [facility] Work Phone: Reason for visit Narrative* MRI/CT (Routine) - Closed SpecialtyDiagnoses / ProceduresReferred By ContactReferred To ContactCT IMAGING Diagnoses 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 60 MINUTES Jason Will MD [address] [place] [phone] Referral IDStatusReasonStart DateExpiration DateVisits RequestedVisits [id number] PCP Requested Referral /[id number] / ProceduresReferred By ContactReferred To ContactCT IMAGING Diagnoses Malignant neoplasm of urinary bladder, unspecified site (HCC) Procedures CT UROGRAM WO/W IVCON CT ABD & PELVIS W/WO CONTRST 1+ BODY REGNS Jason Will MD [address] [place] [phone] Imaging [place] [address] Referral IDStatusReasonStart DateExpiration DateVisits RequestedVisits [id number] Review Auto-Generated Referral / Summary Purpose Family History No Family History Records Found Advance Directives No Advanced Directives Records Found Advance Directive Response Recorded Date/ Time Advance Directives No July 14 12:29pm Chief Complaint and Reason for Visit Chief Complaint Admit Date E04.1 July 14, 2024 11: 10am Additional Source Comments Patient Care team informatio n (unrecognized section and content) Team MemberRelationshipSpecialtyStart DateEnd Date Jose J Donaldson Jr. DO [address] [place] [address] PCP - GeneralInternal Medicine08/28/23Team MemberRelationshipSpecialtyStart Date End Date Jose J Donaldson Jr., DO [address] [place] [address] PCP - GeneralInternal Medicine08/28/23Team MemberRelationshipSpecialtyStart Date End Date Jose J Donaldson Jr., DO [address] [place] [address] PCP - GeneralInternal Medicine08/28/23Team MemberRelationshipSpecialtyStart Date End Date Jose J Donaldson Jr., DO [address] [place] [address] PCP - GeneralInternal Medicine08/28/23Team MemberRelationshipSpecialtyStart Date End Date Jose J Donaldson Jr., DO [address] [place] [address] PCP - GeneralInternal Medicine08/28/23Team MemberRelationshipSpecialtyStart Date End Date Jose J Donaldson Jr., DO [address] [place] [address] PCP - GeneralInternal Medicine08/28/23Team MemberRelationshipSpecialtyStart Date End Date Jose J Donaldson Jr., DO [address] [place] [address] PCP - GeneralInternal Medicine08/28/23Team MemberRelationshipSpecialtyStart Date End Date Jose J Donaldson Jr., DO [address] [place] [address] PCP - GeneralInternal Medicine08/28/23Team MemberRelationshipSpecialtyStart Date End Date Jose J Donaldson Jr., DO [address] [place] [address] PCP - GeneralInternal Medicine08/28/23 Jose Martin Hillman, CATERING SOUS CHEF.TRANSITION MANAGER [address] [place] [address] Nurse PractitionerHematology/Oncology10/22/23 Faisal Dasilva MD [address] [place] [address] PhysicianHematology/Oncology10/22/23 Donald Perez, HANK [address] [place] [address] Specialty Care CoordinatorHematology/Oncology10/22/23Team MemberRelationship SpecialtyStart DateEnd Date Jose J Donaldson Jr., DO [facility] [place] [address] PCP - GeneralInternal Medicine08/28/23 Jose Martin Hillman, CATERING SOUS CHEF.TRANSITION MANAGER [address] [place] [address] Nurse PractitionerHematology/Oncology10/22/23 Faisal Dasilva MD [address] [place] [address] PhysicianHematology/Oncology10/22/23 Donald Perez, HANK [address] [place] [address] Specialty Care CoordinatorHematology/Oncology10/22/23Team MemberRelationship SpecialtyStart DateEnd Date Jose J Donaldson Jr., DO [address] [place] [address] PCP - GeneralInternal Medicine08/28/23 Jose Martin Hillman, CATERING SOUS CHEF.TRANSITION MANAGER [address] [place] [address] Nurse PractitionerHematology/Oncology10/22/23 Faisal Dasilva MD [address] [place] [address] PhysicianHematology/Oncology10/22/23 Donald Perez RN [address] [place] [address] Specialty Care CoordinatorHematology/Oncology10/22/23Team MemberRelationship SpecialtyStart DateEnd Date Jose J Donaldson Jr., DO [address] [place] [address] [place] [address] PCP - GeneralInternal Medicine08/28/23 Jose Martin Hillman, CATERING SOUS CHEF.TRANSITION MANAGER [address] [place] [address] Nurse PractitionerHematology/Oncology10/22/23 Faisal Dasilva MD [address] [place] [address] PhysicianHematology/Oncology10/22/23 Donald Perez RN [address] [place] [address] Specialty Care CoordinatorHematology/Oncology10/22/23Team MemberRelationship SpecialtyStart DateEnd Date Jose J Donaldson Jr., DO [address] [place] [address] [place] [address] PCP - GeneralInternal Medicine08/28/23 Jose Martin Hillman, CATERING SOUS CHEF.TRANSITION MANAGER [address] [place] [address] Nurse PractitionerHematology/Oncology10/22/23 Faisal Dasilva MD [address] [place] [address] PhysicianHematology/Oncology10/22/23 Donald Perez RN [address] [place] [address] Specialty Care CoordinatorHematology/Oncology10/22/23Team MemberRelationship SpecialtyStart DateEnd Date Jose J Donaldson Jr., DO [address] [place] [address] [place] [address] PCP - GeneralInternal Medicine08/28/23 Jose Martin Hillman, CATERING SOUS CHEF.TRANSITION MANAGER [address] [place] [address] [address] [place], [facility]70 Nurse PractitionerHematology/Oncology10/22/23 Faisal Dasilva MD [address] [place] [address] [place] [address] PhysicianHematology/Oncology10/22/23 Donald Perez RN [address] [place] [address] Specialty Care CoordinatorHematology/Oncology10/22/23Team MemberRelationship SpecialtyStart DateEnd Date Jose J Donaldson Jr., DO [address] [place] [address] [place] [address] PCP - GeneralInternal Medicine08/28/23 Jose Martin Hillman, CATERING SOUS CHEF.TRANSITION MANAGER [address] [place] [address] Nurse PractitionerHematology/Oncology10/22/23 Faisal Dasilva MD [address] [place] [address] PhysicianHematology/Oncology10/22/23 Donald Perez, HANK [address] [place] [address] Specialty Care CoordinatorHematology/Oncology10/22/23Team MemberRelationship SpecialtyStart DateEnd Date Jose J Donaldson Jr., DO [address] [place] [address] [place] [address] PCP - GeneralInternal Medicine08/28/23 Jose Martin Hillman, CATERING SOUS CHEF.TRANSITION MANAGER [address] [place] [address] [place] [address] Nurse PractitionerHematology/Oncology10/22/23 Faisal Dasilva MD [address] [place] [address] PhysicianHematology/Oncology10/22/23 Donald Perez, HANK [address] [place] [address] Specialty Care CoordinatorHematology/Oncology10/22/23Team MemberRelationship SpecialtyStart DateEnd Date Jose J Donaldson Jr., DO [address] [place] [address] [place] [address] PCP - GeneralInternal Medicine08/28/23 Jose Martin Hillman, CATERING SOUS CHEF.TRANSITION MANAGER [address] [place] [address] Nurse PractitionerHematology/Oncology10/22/23 Faisal Dasilva MD [address] [facility] [place] [address] PhysicianHematology/Oncology10/22/23 Donald Perez, HANK [address] [facility] [place] [address] Specialty Care CoordinatorHematology/Oncology10/22/23Team MemberRelationship SpecialtyStart DateEnd Date oJse J Donaldson Jr., DO [address] [place] [address] [place] [address] PCP - GeneralInternal Medicine08/28/23 Jose Martin Hillman, CATERING SOUS CHEF.TRANSITION MANAGER [address] [place] [address] Nurse PractitionerHematology/Oncology10/22/23 Faisal Dasilva MD [address] [place] [address] PhysicianHematology/Oncology10/22/23 Donald Perez, HANK [address] [place] [address] Specialty Care CoordinatorHematology/Oncology10/22/23Team MemberRelationship SpecialtyStart DateEnd Date Jose J Donaldson Jr., DO [address] [place] [address] [facility] [place] [address] PCP - GeneralInternal Medicine08/28/23 Jose Martin Hillman, CATERING SOUS CHEF.TRANSITION MANAGER [address] [place] [address] Nurse PractitionerHematology/Oncology10/22/23 Faisal Dasilva MD [address] [place] [address] PhysicianHematology/Oncology10/22/23 Donald Perez, HANK [address] [place] [address] Specialty Care CoordinatorHematology/Oncology10/22/23Team MemberRelationship SpecialtyStart DateEnd Date Jose J Donaldson Jr., DO [address] [place] [address] [place] [phone] PCP - GeneralInternal Medicine08/28/23 Jose Martin Hillman, CATERING SOUS CHEF.TRANSITION MANAGER [address] [place] [address] Nurse PractitionerHematology/Oncology10/22/23 Faisal Dasilva MD [address] [place] [address] PhysicianHematology/Oncology10/22/23 Donald Perez, HANK [address] [place] [address] Specialty Care CoordinatorHematology/Oncology10/22/23 Anette Go LSW Social Worker11/26/23Team MemberRelationshipSpecialtyStart DateEnd Date Jose J Donaldson Jr., DO [address] [place] [address] [place] [address] PCP - GeneralInternal Medicine08/28/23 Jose Martin Hillman, CATERING SOUS CHEF.TRANSITION MANAGER [address] [place] [address] Nurse PractitionerHematology/Oncology10/22/23 Faisal Dasilva MD [address] [place] [address] PhysicianHematology/Oncology10/22/23 Donald Perez, HANK [address] [place] [address] Specialty Care CoordinatorHematology/Oncology10/22/23 Anette Go LSW Social Worker11/26/23Team MemberRelationshipSpecialtyStart DateEnd Date Jose J Donaldson Jr., DO [address] [place] [address] [place] [address] PCP - GeneralInternal Medicine08/28/23 Jose Martin Hillman, TONYA.TRANSITION MANAGER [address] [place] [address] Nurse PractitionerHematology/Oncology10/22/23 Faisal Dasilva MD [address] [place] [address] PhysicianHematology/Oncology10/22/23 Donald Perez, HANK [address] [place] [address] Specialty Care CoordinatorHematology/Oncology10/22/23 Anette Go LSW Social Worker11/26/23Team MemberRelationshipSpecialtyStart DateEnd Date oJse J Donaldson Jr., DO [address] [place] [address] [place] [address] PCP - GeneralInternal Medicine08/28/23 Jose Martin Hillman, CATERING SOUS CHEF.TRANSITION MANAGER [address] [place] [address] Nurse PractitionerHematology/Oncology10/22/23 Faisal Dasilva MD [address] [place] [address] [place] [address] PhysicianHematology/Oncology10/22/23 Donald Perez, HANK [address] [place] [address] Specialty Care CoordinatorHematology/Oncology10/22/23 Anette Go, PAMELA Social Worker11/26/23Team MemberRelationshipSpecialtyStart DateEnd Date Jose J Donaldson Jr., DO [address] [place] [address] [place] [address] PCP - GeneralInternal Medicine08/28/23 Jose Martin Hillman, TONYA.TRANSITION MANAGER [address] [place] [address] [place] [address] Nurse PractitionerHematology/Oncology10/22/23 Faisal Dasilva MD [address] [place] [address] [place] [address] PhysicianHematology/Oncology10/22/23 Donald Perez RN [address] [facility] [place] [address] Specialty Care CoordinatorHematology/Oncology10/22/23 Anette Go LSW Social Worker11/26/23Team MemberRelationshipSpecialtyStart DateEnd Date Jose J Donaldson Jr., DO [address] [place] [address] PCP - GeneralInternal Medicine08/28/23 Jose Martin Hillman, CATERING SOUS CHEF.TRANSITION MANAGER [address] [place] [address] [place] [address] Nurse PractitionerHematology/Oncology10/22/23 Faisal Dasilva MD [address] [place] [address] PhysicianHematology/Oncology10/22/23 Donald Perez, HANK [address] [place] [address] Specialty Care CoordinatorHematology/Oncology10/22/23 Anette Go LSW Social Worker11/26/23Team MemberRelationshipSpecialtyStart DateEnd Date Jose J Donaldson Jr., DO [address] [place] [address] PCP - GeneralInternal Medicine08/28/23 Jose Martin Hillman, CATERING SOUS CHEF.TRANSITION MANAGER [address] [place] [address] Nurse PractitionerHematology/Oncology10/22/23 Faisal Dasilva MD [address] [place] [address] PhysicianHematology/Oncology10/22/23 Donald Perez RN [address] [place] [address] Specialty Care CoordinatorHematology/Oncology10/22/23 Anette Go LSW Social Worker11/26/23Team MemberRelationshipSpecialtyStart DateEnd Date Jose J Donaldson Jr., DO [address] [place] [phone] PCP - GeneralInternal Medicine08/28/23 Jose Martin Hillman, CATERING SOUS CHEF.TRANSITION MANAGER [address] [place] [address] Nurse PractitionerHematology/Oncology10/22/23 Faisal Dasilva MD [address] [place] [address] PhysicianHematology/Oncology10/22/23 Donald Perez, HANK [address] [place] [address] Specialty Care CoordinatorHematology/Oncology10/22/23 Anette Go LSW Social Worker11/26/23Team MemberRelationshipSpecialtyStart DateEnd Date Jose J Donaldson Jr., DO [address] [place] [address] PCP - GeneralInternal Medicine08/28/23 Jose Martin Hillman, CATERING SOUS CHEF.TRANSITION MANAGER [address] [place] [address] Nurse PractitionerHematology/Oncology10/22/23 Faisal Dasilva MD [address] [place] [address] PhysicianHematology/Oncology10/22/23 Donald Perez, HANK [address] [facility] [place] [address] Specialty Care CoordinatorHematology/Oncology10/22/23 Anette Go LSW Social Worker11/26/23Team MemberRelationshipSpecialtyStart DateEnd Date Jose J Donaldson Jr., DO [address] [place] [phone] PCP - GeneralInternal Medicine08/28/23 Jose Martin Hillman, CATERING SOUS CHEF.TRANSITION MANAGER [address] [place] [address] Nurse PractitionerHematology/Oncology10/22/23 Faisal Dasilva MD [address] [place] [address] PhysicianHematology/Oncology10/22/23 Donald Perez, HANK [address] [place] [address] Specialty Care CoordinatorHematology/Oncology10/22/23 Anette Go, PAMELA Social Worker11/26/23Team MemberRelationshipSpecialtyStart DateEnd Date Jose J Donaldson Jr., DO [address] [place] [address] PCP - GeneralInternal Medicine08/28/23 Jose Martin Hillman, CATERING SOUS CHEF.TRANSITION MANAGER [address] [place] [address] [place] [address] Nurse PractitionerHematology/Oncology10/22/23 Faisal Dasilva MD [address] [place] [address] [place] [address] PhysicianHematology/Oncology10/22/23 Donald Perez, HANK [address] [facility] [place] [address] Specialty Care CoordinatorHematology/Oncology10/22/23 Anette Go, PAMELA Social Worker11/26/23Team MemberRelationshipSpecialtyStart DateEnd Date Jose J Donaldson Jr., DO [address] [place] [address] [place] [address] PCP - GeneralInternal Medicine08/28/23 Jose Martin Hillman, CATERING SOUS CHEF.TRANSITION MANAGER [address] [place] [address] Nurse PractitionerHematology/Oncology10/22/23 Faisal Dasilva MD [address] [place] [address] PhysicianHematology/Oncology10/22/23 Donald Perez, HANK [address] [place] [address] Specialty Care CoordinatorHematology/Oncology10/22/23 Anette Go LSW Social Worker11/26/23Team MemberRelationshipSpecialtyStart DateEnd Date Jose J Donaldson Jr., [address] [place] [address] [place] [address] PCP - GeneralInternal Medicine08/28/23 Jose Martin Hillman, CATERING SOUS CHEF.TRANSITION MANAGER [address] [place] [address] Nurse PractitionerHematology/Oncology10/22/23 Faisal Dasilva MD [address] [place] [address] PhysicianHematology/Oncology10/22/23 Donald Perez, HANK [address] [place] [address] Specialty Care CoordinatorHematology/Oncology10/22/23 Anette Go LSW Social Worker11/26/23Team MemberRelationshipSpecialtyStart DateEnd Date Lalito Jose J Griggs Jr., DO [address] [place] [address] PCP - GeneralInternal Medicine08/28/23Team MemberRelationshipSpecialtyStart Date End Date Jose J Donaldson Anson Hobbs, DO [address] [place] [address] PCP - GeneralInternal Medicine08/28/23 Jose Martin Hillman, CATERING SOUS CHEF.TRANSITION MANAGER [address] [place] [address] Nurse PractitionerHematology/Oncology10/22/23 Faisal Dasilva MD [address] [place] [address] PhysicianHematology/Oncology10/22/23 Donald Perez, HANK [address] [place] [address] Specialty Care CoordinatorHematology/Oncology10/22/23 Anette Go LSW Social Worker11/26/23Team MemberRelationshipSpecialtyStart DateEnd Date Lalito Jose J Griggs Jr., DO [address] [facility] [place] [address] PCP - GeneralInternal Medicine08/28/23 Jose Martin Hillman, CATERING SOUS CHEF.TRANSITION MANAGER [address] [place] [address] Nurse PractitionerHematology/Oncology10/22/23 Faisal Dasilva MD [address] [place] [address] PhysicianHematology/Oncology10/22/23 Donald Perez, HANK [address] [place] [address] Specialty Care CoordinatorHematology/Oncology10/22/23 Anette Go, PAMELA Social Worker11/26/23Team MemberRelationshipSpecialtyStart DateEnd Date Jose J Donaldson Jr., DO [facility] [place] [address] PCP - GeneralInternal Medicine08/28/23 Jose Martin Hillman, CATERING SOUS CHEF.TRANSITION MANAGER [address] [place] [address] Nurse PractitionerHematology/Oncology10/22/23 Faisal Dasilva MD [address] [place] [address] PhysicianHematology/Oncology10/22/23 Donald Perez RN [address] [place] [address] Specialty Care CoordinatorHematology/Oncology10/22/23 Anette Go LSW Social Worker11/26/23Team MemberRelationshipSpecialtyStart DateEnd Date Jose J Donaldson Jr., DO [address] [place] [phone] PCP - GeneralInternal Medicine08/28/23 Jose Martin Hillman, CATERING SOUS CHEF.TRANSITION MANAGER [address] [place] [address] Nurse PractitionerHematology/Oncology10/22/23 Faisal Dasilva MD [address] [place] [address] PhysicianHematology/Oncology10/22/23 Donald Perez, HANK [address] [place] [address] Specialty Care CoordinatorHematology/Oncology10/22/23 Anette Go LSW Social Worker11/26/23Team MemberRelationshipSpecialtyStart DateEnd Date Jose J Donaldson Jr., DO [facility] [facility] [place] [address] PCP - GeneralInternal Medicine08/28/23 Jose Martin Hillman, CATERING SOUS CHEF.TRANSITION MANAGER [address] [place] [address] [place] [address] Nurse PractitionerHematology/Oncology10/22/23 Faisal Dasilva MD [address] [place] [address] [place] [address] PhysicianHematology/Oncology10/22/23 Donald Perez, HANK [address] [place] [address] Specialty Care CoordinatorHematology/Oncology10/22/23 Anette Go LSW Social Worker11/26/23Te MemberRelationshipSpecialtyStart DateEnd Date Jose J Donaldson Jr., DO [facility] [place] [address] PCP - GeneralInternal Medicine08/28/23 Jose Martin Hillman, CATERING SOUS CHEF.TRANSITION MANAGER [address] [place] [address] [place] [address] Nurse PractitionerHematology/Oncology10/22/23 Faisal Dasilva MD [address] [place] [address] PhysicianHematology/Oncology10/22/23 Donald Perez, RN [address] [place] [address] Specialty Care CoordinatorHematology/Oncology10/22/23 Anette Go, ACCOUNT GENERAL MANAGER Social Worker11/26/23Team MemberRelationshipSpecialtyStart DateEnd Date Jose J Donaldson Jr., DO [address] [place] [address] [place] [id number] PCP - GeneralInternal Medicine08/28/23 Jose Martin Hillman, TONYA.TRANSITION MANAGER [address] [place] [address] Nurse PractitionerHematology/Oncology10/22/23 Faisal Dasilva MD [address] [place] [address] PhysicianHematology/Oncology10/22/23 Donald Perez, HANK [address] [place] [address] Specialty Care CoordinatorHematology/Oncology10/22/23 Anette Go LSW Social Worker11/26/23Team MemberRelationshipSpecialtyStart DateEnd Date Jose J Donaldson Jr., DO [address] [place] [address] [place] [address] PCP - GeneralInternal Medicine08/28/23 Jose Martin Hillman, TONYA.TRANSITION MANAGER [address] [place] [address] Nurse PractitionerHematology/Oncology10/22/23 Faisal Dasilva MD [address] [place] [address] [place] [address] PhysicianHematology/Oncology10/22/23 Donald Perez, HANK [address] [place] [address] Specialty Care CoordinatorHematology/Oncology10/22/23 Anette Go LSW Social Worker11/26/23Team MemberRelationshipSpecialtyStart DateEnd Date Jose J Donaldson MD [address] [place] [place] [address] PCP - GeneralInternal Medicine07/14/24Team MemberRelationshipSpecialtyStart Date End Date Jose J Donaldson MD [address] [place] [place] [id number] PCP - GeneralInternal Medicine07/14/24 Team Status: Active Member Role Status Dates PHYSICIAN NO FAMILY Primary Care Provider Active Team Status: Inactive Member Role Status Dates Rubén Newman DO Attending Provider Active S tart: July 14, 2024 End: July 14, 2024PHYSICIAN NO FAMILYPrimary Care ProviderActiveStart: July 14, 2024 End: July 14, 2024 Team Status: Inactive Member Role Status Dates Rubén Newman DO Attending Provider Active S tart: August 04, 2024 End: August 04, 2024Team MemberRelationshipSpecialtyStart DateEnd Date Jose J Donaldson MD [address] [place] [place] [id number] PCP - GeneralInternal Medicine07/14/24Team MemberRelationshipSpecialtyStart Date End Date Jose J Donaldson MD [address] [place] [place] [address] [phone] PCP - GeneralInternal Medicine07/14/24Team MemberRelationshipSpecialtyStart Date End Date Jose J Donaldson MD [address] [place], [place] [id number] PCP - GeneralInternal Medicine07/14/24 Team Status: Inactive Member Role Status Dates Rubén Newman DO Attending Provider Active S tart: November 17, 2024 End: November 17, 2024Team MemberRelationshipSpecialtyStart DateEnd Date Jose J Donaldson Jr., DO [address] [place] [address] PCP - GeneralInternal Medicine08/28/23 Jose Martin Hillman, TONYA.TRANSITION MANAGER [address] [place] [address] Nurse PractitionerHematology/Oncology10/22/23 Anette Go LSW Social Worker11/26/23Team MemberRelationshipSpecialtyStart DateEnd Date Jose J Donaldson MD [address] [place], [place] [phone] PCP - GeneralInternal Medicine07/14/24Team MemberRelationshipSpecialtyStart Date End Date Jose J Donaldson Jr., DO [address] [facility] [place] [address] PCP - GeneralInternal Medicine08/28/23 Jose Martin Hillman, TONYA.TRANSITION MANAGER [address] [place] [address] Nurse PractitionerHematology/Oncology10/22/23 Anette Go LSW Social Worker11/26/23Team MemberRelationshipSpecialtyStart DateEnd Date Jose J Donaldson Jr., DO [address] [place] [address] PCP - GeneralInternal Medicine08/28/23 Jose Martin Hillman, CATERING SOUS CHEF.TRANSITION MANAGER [address] [place] [address] Nurse PractitionerHematology/Oncology10/22/23 Anette Go LSW Social Worker11/26/23Team MemberRelationshipSpecialtyStart DateEnd Date Jose J Donaldson MD [address] [place] [address] PCP - GeneralInternal Medicine07/14/24Team MemberRelationshipSpecialtyStart Date End Date Jose J Donaldson MD [address] [place] [address] PCP - GeneralInternal Medicine07/14/24Team MemberRelationshipSpecialtyStart Date End Date Jose J Donaldson Jr., DO [address] [place] [address] PCP - GeneralInternal Medicine08/28/23 Jose Martin Hillman, CATERING SOUS CHEF.TRANSITION MANAGER [address] [place] [address] Nurse PractitionerHematology/Oncology10/22/23 Anette Go LSW Social Worker11/26/23Team MemberRelationshipSpecialtyStart DateEnd Date Cristina Kerr MD [address] [facility] [place] [address] PCP - GeneralFamily Medicine01/12/25 Tanesha Casiano NP [address] [place] [address] Nurse PractitionerFaAt[facility]01/12/25Team MemberRelationshipSpecialtyStart DateEnd Date Cristina Kerr MD [address] [place] [address] PCP - GeneralmiAt[facility]01/12/25 Tanesha Casiano NP [address] [place] [address] Nurse PractitionerS[facility]01/12/25Team MemberRelationshipSpecialtyStart DateEnd Date Cristina Kerr MD [address] [place] [address] PCP - GeneralmiAt[facility]01/12/25 Tanesha Casiano NP [address] [place] [address] Nurse PractitionerSoutheast [facility] Health [facility]01/12/25 Source Comments (unrecognize d section and content) In the event this informatio n is protected by the Federal Confidentiality of Alcohol and Drug Abuse Patient Records regulations: The Federal rules restrict any use of the information to criminally investigate or prosecute any alcohol or drug abuse patient.[facility] HospitalIn the event this information is protected by the Federal Confidentiality of Alcohol and Drug Abuse Patient Records regulations: The Federal rules restrict any use of the information to criminally investigate or prosecute any alcohol or drug abuse patient.[facility] HospitalIn the event this information is protected by the Federal Confidentiality of Alcohol and Drug Abuse Patient Records regulations: The Federal rules restrict any use of the information to criminally investigate or prosecute any alcohol or drug abuse patient.[facility] HospitalIn the event this information is protected by the Federal Confidentiality of Alcohol and Drug Abuse Patient Records regulations: The Federal rules restrict any use of the information to criminally investigate or prosecute any alcohol or drug abuse patient.[facility] HospitalIn the event this information is protected by the Federal Confidentiality of Alcohol and Drug Abuse Patient Records regulations: The Federal rules restrict any use of the information to criminally investigate or prosecute any alcohol or drug abuse patient.[facility] HospitalIn the event this information is protected by the Federal Confidentiality of Alcohol and Drug Abuse Patient Records regulations: The Federal rules restrict any use of the information to criminally investigate or prosecute any alcohol or drug abuse patient.[facility] HospitalIn the event this information is protected by the Federal Confidentiality of Alcohol and Drug Abuse Patient Records regulations: The Federal rules restrict any use of the information to criminally investigate or prosecute any alcohol or drug abuse patient.[facility] HospitalIn the event this information is protected by the Federal Confidentiality of Alcohol and Drug Abuse Patient Records regulations: The Federal rules restrict any use of the information to criminally investigate or prosecute any alcohol or drug abuse patient.[facility] HospitalIn the event this information is protected by the Federal Confidentiality of Alcohol and Drug Abuse Patient Records regulations: The Federal rules restrict any use of the information to criminally investigate or prosecute any alcohol or drug abuse patient.[facility] HospitalIn the event this information is protected by the Federal Confidentiality of Alcohol and Drug Abuse Patient Records regulations: The Federal rules restrict any use of the information to criminally investigate or prosecute any alcohol or drug abuse patient.[facility] HospitalIn the event this information is protected by the Federal Confidentiality of Alcohol and Drug Abuse Patient Records regulations: The Federal rules restrict any use of the information to criminally investigate or prosecute any alcohol or drug abuse patient.[facility] HospitalIn the event this information is protected by the Federal Confidentiality of Alcohol and Drug Abuse Patient Records regulations: The Federal rules restrict any use of the information to criminally investigate or prosecute any alcohol or drug abuse patient.[facility] HospitalIn the event this information is protected by the Federal Confidentiality of Alcohol and Drug Abuse Patient Records regulations: The Federal rules restrict any use of the information to criminally investigate or prosecute any alcohol or drug abuse patient.[facility] HospitalIn the event this information is protected by the Federal Confidentiality of Alcohol and Drug Abuse Patient Records regulations: The Federal rules restrict any use of the information to criminally investigate or prosecute any alcohol or drug abuse patient.[facility] HospitalIn the event this information is protected by the Federal Confidentiality of Alcohol and Drug Abuse Patient Records regulations: The Federal rules restrict any use of the information to criminally investigate or prosecute any alcohol or drug abuse patient.[facility] HospitalIn the event this information is protected by the Federal Confidentiality of Alcohol and Drug Abuse Patient Records regulations: The Federal rules restrict any use of the information to criminally investigate or prosecute any alcohol or drug abuse patient.[facility] HospitalIn the event this information is protected by the Federal Confidentiality of Alcohol and Drug Abuse Patient Records regulations: The Federal rules restrict any use of the information to criminally investigate or prosecute any alcohol or drug abuse patient.[facility] HospitalIn the event this information is protected by the Federal Confidentiality of Alcohol and Drug Abuse Patient Records regulations: The Federal rules restrict any use of the information to criminally investigate or prosecute any alcohol or drug abuse patient.[facility] HospitalIn the event this information is protected by the Federal Confidentiality of Alcohol and Drug Abuse Patient Records regulations: The Federal rules restrict any use of the information to criminally investigate or prosecute any alcohol or drug abuse patient.[facility] HospitalIn the event this information is protected by the Federal Confidentiality of Alcohol and Drug Abuse Patient Records regulations: The Federal rules restrict any use of the information to criminally investigate or prosecute any alcohol or drug abuse patient.[facility] HospitalIn the event this information is protected by the Federal Confidentiality of Alcohol and Drug Abuse Patient Records regulations: The Federal rules restrict any use of the information to criminally investigate or prosecute any alcohol or drug abuse patient.[facility] HospitalIn the event this information is protected by the Federal Confidentiality of Alcohol and Drug Abuse Patient Records regulations: The Federal rules restrict any use of the information to criminally investigate or prosecute any alcohol or drug abuse patient.[facility] HospitalIn the event this information is protected by the Federal Confidentiality of Alcohol and Drug Abuse Patient Records regulations: The Federal rules restrict any use of the information to criminally investigate or prosecute any alcohol or drug abuse patient.[facility] HospitalIn the event this information is protected by the Federal Confidentiality of Alcohol and Drug Abuse Patient Records regulations: The Federal rules restrict any use of the information to criminally investigate or prosecute any alcohol or drug abuse patient.[facility] HospitalIn the event this information is protected by the Federal Confidentiality of Alcohol and Drug Abuse Patient Records regulations: The Federal rules restrict any use of the information to criminally investigate or prosecute any alcohol or drug abuse patient.[facility] HospitalIn the event this information is protected by the Federal Confidentiality of Alcohol and Drug Abuse Patient Records regulations: The Federal rules restrict any use of the information to criminally investigate or prosecute any alcohol or drug abuse patient.[facility] HospitalIn the event this information is protected by the Federal Confidentiality of Alcohol and Drug Abuse Patient Records regulations: The Federal rules restrict any use of the information to criminally investigate or prosecute any alcohol or drug abuse patient.[facility] HospitalIn the event this information is protected by the Federal Confidentiality of Alcohol and Drug Abuse Patient Records regulations: The Federal rules restrict any use of the information to criminally investigate or prosecute any alcohol or drug abuse patient.[facility] HospitalIn the event this information is protected by the Federal Confidentiality of Alcohol and Drug Abuse Patient Records regulations: The Federal rules restrict any use of the information to criminally investigate or prosecute any alcohol or drug abuse patient.[facility] HospitalIn the event this information is protected by the Federal Confidentiality of Alcohol and Drug Abuse Patient Records regulations: The Federal rules restrict any use of the information to criminally investigate or prosecute any alcohol or drug abuse patient.[facility] HospitalIn the event this information is protected by the Federal Confidentiality of Alcohol and Drug Abuse Patient Records regulations: The Federal rules restrict any use of the information to criminally investigate or prosecute any alcohol or drug abuse patient.[facility] HospitalIn the event this information is protected by the Federal Confidentiality of Alcohol and Drug Abuse Patient Records regulations: The Federal rules restrict any use of the information to criminally investigate or prosecute any alcohol or drug abuse patient.[facility] HospitalIn the event this information is protected by the Federal Confidentiality of Alcohol and Drug Abuse Patient Records regulations: The Federal rules restrict any use of the information to criminally investigate or prosecute any alcohol or drug abuse patient.[facility] HospitalIn the event this information is protected by the Federal Confidentiality of Alcohol and Drug Abuse Patient Records regulations: The Federal rules restrict any use of the information to criminally investigate or prosecute any alcohol or drug abuse patient.[facility] HospitalIn the event this information is protected by the Federal Confidentiality of Alcohol and Drug Abuse Patient Records regulations: The Federal rules restrict any use of the information to criminally investigate or prosecute any alcohol or drug abuse patient.[facility] HospitalIn the event this information is protected by the Federal Confidentiality of Alcohol and Drug Abuse Patient Records regulations: The Federal rules restrict any use of the information to criminally investigate or prosecute any alcohol or drug abuse patient.[facility] HospitalIn the event this information is protected by the Federal Confidentiality of Alcohol and Drug Abuse Patient Records regulations: The Federal rules restrict any use of the information to criminally investigate or prosecute any alcohol or drug abuse patient.[facility] HospitalIn the event this information is protected by the Federal Confidentiality of Alcohol and Drug Abuse Patient Records regulations: The Federal rules restrict any use of the information to criminally investigate or prosecute any alcohol or drug abuse patient.[facility] HospitalIn the event this information is protected by the Federal Confidentiality of Alcohol and Drug Abuse Patient Records regulations: The Federal rules restrict any use of the information to criminally investigate or prosecute any alcohol or drug abuse patient.[facility] HospitalIn the event this information is protected by the Federal Confidentiality of Alcohol and Drug Abuse Patient Records regulations: The Federal rules restrict any use of the information to criminally investigate or prosecute any alcohol or drug abuse patient.[facility] HospitalIn the event this information is protected by the Federal Confidentiality of Alcohol and Drug Abuse Patient Records regulations: The Federal rules restrict any use of the information to criminally investigate or prosecute any alcohol or drug abuse patient.[facility] HospitalIn the event this information is protected by the Federal Confidentiality of Alcohol and Drug Abuse Patient Records regulations: The Federal rules restrict any use of the information to criminally investigate or prosecute any alcohol or drug abuse patient.[facility] HospitalIn the event this information is protected by the Federal Confidentiality of Alcohol and Drug Abuse Patient Records regulations: The Federal rules restrict any use of the information to criminally investigate or prosecute any alcohol or drug abuse patient.[facility] HospitalIn the event this information is protected by the Federal Confidentiality of Alcohol and Drug Abuse Patient Records regulations: The Federal rules restrict any use of the information to criminally investigate or prosecute any alcohol or drug abuse patient.[facility] HospitalIn the event this information is protected by the Federal Confidentiality of Alcohol and Drug Abuse Patient Records regulations: The Federal rules restrict any use of the information to criminally investigate or prosecute any alcohol or drug abuse patient.[facility] HospitalIn the event this information is protected by the Federal Confidentiality of Alcohol and Drug Abuse Patient Records regulations: The Federal rules restrict any use of the information to criminally investigate or prosecute any alcohol or drug abuse patient.[facility] HospitalIn the event this information is protected by the Federal Confidentiality of Alcohol and Drug Abuse Patient Records regulations: The Federal rules restrict any use of the information to criminally investigate or prosecute any alcohol or drug abuse patient.[facility] HospitalIn the event this information is protected by the Federal Confidentiality of Alcohol and Drug Abuse Patient Records regulations: The Federal rules restrict any use of the information to criminally investigate or prosecute any alcohol or drug abuse patient.[facility] the event this information is protected by the Federal Confidentiality of Alcohol and Drug Abuse Patient Records regulations: The Federal rules restrict any use of the information to criminally investigate or prosecute any alcohol or drug abuse patient.[facility] HospitalIn the event this information is protected by the Federal Confidentiality of Alcohol and Drug Abuse Patient Records regulations: The Federal rules restrict any use of the information to criminally investigate or prosecute any alcohol or drug abuse patient.[facility] HospitalIn the event this information is protected by the Federal Confidentiality of Alcohol and Drug Abuse Patient Records regulations: The Federal rules restrict any use of the information to criminally investigate or prosecute any alcohol or drug abuse patient.[facility] HospitalIn the event this information is protected by the Federal Confidentiality of Alcohol and Drug Abuse Patient Records regulations: The Federal rules restrict any use of the information to criminally investigate or prosecute any alcohol or drug abuse patient.[facility] HospitalIn the event this information is protected by the Federal Confidentiality of Alcohol and Drug Abuse Patient Records regulations: The Federal rules restrict any use of the information to criminally investigate or prosecute any alcohol or drug abuse patient.[facility] HospitalIn the event this information is protected by the Federal Confidentiality of Alcohol and Drug Abuse Patient Records regulations: The Federal rules restrict any use of the information to criminally investigate or prosecute any alcohol or drug abuse patient.[facility] HospitalIn the event this information is protected by the Federal Confidentiality of Alcohol and Drug Abuse Patient Records regulations: The Federal rules restrict any use of the information to criminally investigate or prosecute any alcohol or drug abuse patient.[facility] HospitalIn the event this information is protected by the Federal Confidentiality of Alcohol and Drug Abuse Patient Records regulations: The Federal rules restrict any use of the information to criminally investigate or prosecute any alcohol or drug abuse patient.[facility] HospitalIn the event this information is protected by the Federal Confidentiality of Alcohol and Drug Abuse Patient Records regulations: The Federal rules restrict any use of the information to criminally investigate or prosecute any alcohol or drug abuse patient.[facility] HospitalIn the event this information is protected by the Federal Confidentiality of Alcohol and Drug Abuse Patient Records regulations: The Federal rules restrict any use of the information to criminally investigate or prosecute any alcohol or drug abuse patient.[facility] HospitalIn the event this information is protected by the Federal Confidentiality of Alcohol and Drug Abuse Patient Records regulations: The Federal rules restrict any use of the information to criminally investigate or prosecute any alcohol or drug abuse patient.[facility] HospitalIn the event this information is protected by the Federal Confidentiality of Alcohol and Drug Abuse Patient Records regulations: The Federal rules restrict any use of the information to criminally investigate or prosecute any alcohol or drug abuse patient.[facility] HospitalIn the event this information is protected by the Federal Confidentiality of Alcohol and Drug Abuse Patient Records regulations: The Federal rules restrict any use of the information to criminally investigate or prosecute any alcohol or drug abuse patient.[facility] HospitalIn the event this information is protected by the Federal Confidentiality of Alcohol and Drug Abuse Patient Records regulations: The Federal rules restrict any use of the information to criminally investigate or prosecute any alcohol or drug abuse patient.[facility] HospitalIn the event this information is protected by the Federal Confidentiality of Alcohol and Drug Abuse Patient Records regulations: The Federal rules restrict any use of the information to criminally investigate or prosecute any alcohol or drug abuse patient.[facility] HospitalIn the event this information is protected by the Federal Confidentiality of Alcohol and Drug Abuse Patient Records regulations: The Federal rules restrict any use of the information to criminally investigate or prosecute any alcohol or drug abuse patient.[facility] HospitalIn the event this information is protected by the Federal Confidentiality of Alcohol and Drug Abuse Patient Records regulations: The Federal rules restrict any use of the information to criminally investigate or prosecute any alcohol or drug abuse patient.[facility] Reason for Visit (unrecogniz ed section and content) ReasonCommentsConsultReasonCommentsSurgery and PACC datesReasonCommentsPre-Op TeachingReasonCommentsRadiology CTSpecialtyDiagnoses / ProceduresReferred By ContactReferred To ContactCT IMAGING Diagnoses Malignant neoplasm of urinary bladder, unspecified site (HCC) Procedures CT UROGRAM WO/W IVCON CT ABD & PELVIS W/WO CONTRST 1+ BODY REGJason Venegas MD [address] [place] [address] Ct Imaging [place] [address] Referral IDStatusReasonStart DateExpiration DateVisits RequestedVisits [id number] Auto-Generated Referral /[id number] FollowupReasonCommentsResultsReason CommentsAppointmentReasonCommentsVoiding TrialReasonCommentsUrothelial cancerNew patient consultSpecialtyDiagnoses / ProceduresReferred By ContactReferred To ContactOncology Diagnoses Malignant neoplasm of overlapping sites of bladder (HCC) Procedures CONSULT TO ONCOLOGY OFFICE/OUTPATIENT [facility] 60 MINUTES Jason Will MD [address] [place] [address] Referral IDStatusReasonStart DateExpiration DateVisits RequestedVisits [id number] PCP Requested Referral /[id number] CoordinationAntiemeticsReasonOnset Date CommentsRefill Bxrugic4910/22/2023easonCommentsCare CoordinationPET ResultsReason CommentsBladder CancerReasonCommentsFirst Time Treatment EducationCisplatin & GemcitabineReasonCommentsLab OrdersReasonCommentsBladder CancerTreatment visit SpecialtyDiagnoses / ProceduresReferred By ContactReferred To Contact Diagnoses Malignant neoplasm of overlapping sites of bladder (HCC) Faisal Dasilva MD [address] [place] [address] [place] [address] [facility] Treat Adriano [address] [place] [address] Referral IDStatusReasonStart DateExpiration DateVisits RequestedVisits [id number] Consent ReasonCommentsCare [id number] Post Treatment CallReasonCommentsRefill RequestReasonCommentsBladder CancerTreatment visitReasonCommentsRadiology US ReasonCommentsCystoscopy-1ReasonCommentsRadiology NMSpecialtyDiagnoses / ProceduresReferred By ContactReferred To ContactMOLECULAR & FUNCTIONAL IMAGING Diagnoses Malignant neoplasm of overlapping sites of bladder (HCC) Procedures NM PET/CT SKULL-THIGH INITIAL PET IMAGING CT ATTENUATION SKULL BASE MID-THIGH Faisal Dasilva MD [address] [place] [address] [place] [address] Molecular & Functional Imaging [address] [place] [address] Referral IDStatusReasonStdavisboro DateExpiration DateVisits RequestedVisits [id number] Auto-Generated Referral /[id number]wusyigxes For SurgeryReasonComments Bladder CancerFollow upReasonCommentsResultsReasonCommentsBladder CancerReason CommentsOrdersReasonCommentsRadiology CTSpecialtyDiagnoses / ProceduresReferred By ContactReferred To ContactCT IMAGING Diagnoses Malignant neoplasm of overlapping sites of bladder (HCC) Procedures CT ABD/PEL W IVCON CT ABD & PELVIS W/CONTRAST Faisal Dasilva MD [address] [place] [address] [place] [address] Ct Imaging [place] [address] Referral IDStatusReasonStdavisboro DateExpiration DateVisits RequestedVisits [id number] Auto-Generated Referral /[id number] CancerFollowupReasonCommentsCare CoordinationThyroid USReasonCommentsThyroid NoduleFNAReasonCommentsrescheduled appointmentReasonCommentsThyroid NoduleFNA resultsReasonCommentsAntibioticReason CommentsBladder CancerFollowupReasonCommentsThyroid Nodule3 month repeat FNA ReasonCommentsAppointment ConfirmationReasonCommentsCare CoordinationClinical updateReasonCommentsEstablish CareReasonOnset DateCommentsLab Mshetn8801/01/2025 ReasonCommentsMedicare Annual Wellness Visit Subsequent (unrecognized sect ion and content) No Status Records FoundNo Status Records FoundNo Status Records FoundNo Status Records FoundNo Status Records FoundNo Status Records Found INFORMATION SOURCE (unrecogn ized section and content) DATE CREATED AUTHOR 09/26/2023 [facility] DATE CREATED AUTHOR AUTHOR'S ORGANIZ ATION 11/04/2024 [facility] DATE CREATED AUTHOR AUTHOR'S ORGANIZ ATION 11/27/2024 [facility] DATE CREATED AUTHOR AUTHOR'S ORGANIZ ATION 12/04/2024 [facility] DATE CREATED AUTHOR AUTHOR'S ORGANIZ ATION 02/09/2025 [facility] EPIC DATE CREATED AUTHOR AUTHOR'S ARLEN ATION 03/17/2025 [facility] Goals (unrecognized section and content) [...] BE BASED ON THE PRIMARY CLINICAL RECORDS. [facility] [employer] provides no warranty or guarantee of the accuracy or completeness of information in this document.
--- NOTE | 2025-05-05 10:00 | CA_ITS ---
Patient Name: JOLLY SIERRA MR#: [id number] : 1945 Exam Date: 05/05/2025 Ordering Doctor: NON-STAFF PHYSICIAN ECHOCARDIOGRAM REPORT PROCEDURE: CA ECHO DOPPLER COMPLETE INDICATIONS: Chronic heart failure, hypertension, h/o bladder cancer- chemotherapy COMPARISON: None. DESCRIPTION: COMPLETE ECHOCARDIOGRAM Real-time transthoracic echocardiography with 2D, M-mode, spectral and color flow Doppler performed. QUALITY: Technical quality was good. LEFT VENTRICLE: Normal chamber size. Normal left ventricular wall thickness. Normal systolic function. LV EF: Normal left ventricular ejection fraction, (55-60%). DIASTOLIC: Normal diastolic function. ATRIAL SEPTUM: LEFT ATRIUM: Normal chamber size. RIGHT ATRIUM: Normal chamber size. RIGHT VENTRICLE: Normal chamber size. Normal right ventricular systolic function. TRICUSPID VALVE: Normal mobility and thickness. No stenosis with mild regurgitation. No evidence of pulmonary hypertension. RVSP 27 mmHg MITRAL VALVE: Normal mobility and thickness. No evidence of mitral valve stenosis. There is no mitral annular calcification. Mild to moderate mitral regurgitation. AORTIC VALVE: Normal trileaflet appearance. No visible sclerosis. Normal leaflet mobility. No evidence of aortic valve stenosis. Mild aortic regurgitation. AORTIC ROOT: Normal diameter and appearance, measuring 2.8 cm. Ascending aorta is normal in size, measuring 3.1 cm. PULMONIC VALVE: Normal thickness and mobility. No stenosis. Mild regurgitation. PERICARDIUM: No evidence of pericardial effusion. IVC: Collapses with inspiration. PLEURA: CONCLUSION: 1. Normal ventricular size and systolic function. Estimated LVEF is 55 to 60%. 2. Normal diastolic function. 3. Mild to moderate mitral regurgitation. 4. Mild tricuspid regurgitation. 5. Normal right-sided pressures. Adult Echocardiography Procedure Report Left Ventricle LVEDD (3.7 - 5.6 cm): 4.56 cm LVESD (2.2 - 4.0 cm): 3.68 cm LVIVS thickness (0.6 - 1.2 cm): 1.12 cm LVPW thickness (0.5 - 1.0 cm): 0.94 cm e': 0.11 m/s E - e': 5.74 LVOT Max Gradient: 3.80 mm[Hg] LVOT Area (cm2): 0.97 m/s Peak Velocity (LVOT): 0.97 m/s Mean Velocity (LVOT): 0.62 m/s LVOT Diameter 2.06 cm Left Atrium LA Volume Index (2D A2C): 24.46 ml/m2 Left Atrium Systolic Dimension: 3.00 cm Mitral Valve MV E to A Ratio: 1.05 Mitral Valve A-Wave Peak Velocity: 0.60 m/s Mitral Valve E-Wave Peak Velocity: 0.63 m/s Right Ventricle Aorta AO Root Diam: 2.81 cm Ascending Ao Diam: 3.11 cm Aortic Valve AoV Area (Peak Domo): 2.73 cm2, 2.73 cm2 AoV Area (VTI): 2.50 cm2, 2.50 cm2 Deceleration Clarion: 1.20 m/s2 Pressure Half-Time: 527.79 ms Peak Velocity(Antegrade Flow): 1.19 m/s Peak Gradient(Antegrade Flow): 5.67 mm[Hg] Mean Velocity(Antegrade Flow): 0.75 m/s Mean Gradient(Antegrade Flow): 2.70 mm[Hg] Velocity Time Integral: 27.64 cm Tricuspid Valve Peak Velocity (Regurgitant Flow): 1.90 m/s, 1.98 m/s, 2.46 m/s Pulmonic Valve Mean Gradient: 3.09 mm[Hg] Mean Velocity: 0.78 m/s Peak Velocity: 1.47 m/s Peak Gradient: 8.62 mm[Hg] Right Atrium Right Atrium Systolic Pressure: 36.62 ml, 36.62 ml Dictated by: Narayan Crowder M.D. on 05/05/2025 at 18:34 Approved by: Narayan Crowder M.D. on 05/05/2025 at 18:38
== END 2025-05-05 09:44 | disposition home or self-care (01) ==
LOC: CARD 09:43
DX: I50.9 Heart failure, unspecified (principal)
CPT/HCPCS: 93306